=== PATIENT | male | born 1955 | race Caucasian/White ===

== ENCOUNTER 2023-04-30 15:43 | Inpatient (IN) | payer MEDICARE, SELFPAY ==
[2023-04-30] VITALS (11 sets, daily range): BP systolic 89–125; BP diastolic 28–69; PULSE 62–83; RESP 18–22; TEMP 36.3–36.7; O2SAT 90–100; BMI 35.0
--- NOTE | ~2023-04-30 | US_ITS ---
EXAMINATION: US GUIDED PARACENTESIS CLINICAL INFORMATION: Large amount of ascites COMPARISON: None available. TECHNIQUE: The skin was prepped and draped in the usual fashion. 1% Xylocaine was used for local anesthetic. With ultrasound guidance a 5 Sudanese Yueh catheter was placed in the left lower quadrant. 6.6 L of clear yellow fluid was drained. FINDINGS: Large ascites US/US paracentesis abd w/image IMPRESSION: Paracentesis with 6.6 L of fluid drained
--- NOTE | ~2023-04-30 | CT_ITS ---
EXAMINATION: CT ABDOMEN AND PELVIS WITHOUT CONTRAST CLINICAL INFORMATION: Bacteremia, Distended abdomen. Chronic Gordon catheter. COMPARISON: None available. TECHNIQUE: Multidetector volumetric imaging was performed from the superior aspect of the liver through the pubic symphysis. Sagittal and coronal reformatted images were obtained on the technologist's workstation. This CT examination was performed using dose optimization techniques as appropriate, variously including the following: *Automated exposure control *Adjustment of mA and/or kV according to patient size (this includes techniques or standardized protocols for targeted exams where dose is matched to indication/reason for exam; i.e. extremities or head) *Use of iterative reconstruction technique DLP: 663 mGy-cm FINDINGS: LUNG BASES: The visualized lung bases are unremarkable. LIVER, GALLBLADDER, AND BILIARY TREE: Cirrhotic-appearing liver. No focal liver lesion. Multiple small gallstones in the gallbladder. Gallbladder otherwise normal. No biliary duct dilatation. Large amount of ascites. PANCREAS: Unremarkable. SPLEEN: Unremarkable. ADRENAL GLANDS: Unremarkable. KIDNEYS AND URETERS: The kidneys are normal in size, shape, and attenuation. No hydronephrosis, hydroureter, or calculi seen. No perinephric stranding. BLADDER: Gordon catheter in the bladder. A small amount of air in the bladder presumably related to Gordon catheter placement. Bacteremia. Distended abdomen. Chronic Gordon. GASTROINTESTINAL TRACT: Mild constipation. The small and large bowel are otherwise unremarkable. The appendix is unremarkable. ABDOMINAL WALL: No significant hernia is appreciated. LYMPH NODES: Normal. VASCULAR: Atherosclerotic disease aneurysm. PELVIC VISCERA: Enlarged prostate gland OSSEOUS STRUCTURES: Moderate old-appearing L1 vertebral body bilateral rib fractures varying ages. Degenerative changes of the right. CT/CT abdomen pelvis wo IV con IMPRESSION: Cirrhosis. Large amount of ascites. Gallstones. Gordon catheter in the bladder. Small amount of air in the bladder presumably related to Gordon catheter placement. Enlarged prostate gland. Fleischner guidelines were followed.
--- NOTE | ~2023-04-30 | CT_ITS ---
EXAMINATION: CT HEAD WITHOUT CONTRAST CLINICAL INFORMATION: Encephalopathy. COMPARISON: No relevant prior imaging. TECHNIQUE: Contiguous axial imaging was performed from the skull base to vertex without intravenous administration of contrast. This CT examination was performed using dose optimization techniques as appropriate, variously including the following: *Automated exposure control *Adjustment of mA and/or kV according to patient size (this includes techniques or standardized protocols for targeted exams where dose is matched to indication/reason for exam; i.e. extremities or head) *Use of iterative reconstruction technique DLP: 1420 mGy-cm FINDINGS: There is no acute intracranial hemorrhage or abnormal extra-axial collection. No intracranial mass effect or midline shift. Lateral and third ventricles are normal. No hydrocephalus. There are scattered nonspecific foci of hypoattenuation within the periventricular white matter. Morales-white matter differentiation is otherwise preserved and there is no evidence of acute territorial infarct. The calvarium and skull base are intact. Mastoid air cells and middle ear cavities are well aerated. No active paranasal sinus disease. Globes and orbits are grossly symmetric. CT/CT head/brain wo IV con IMPRESSION: There are scattered chronic small vessel ischemic changes within the periventricular white matter. Otherwise unremarkable examination. No evidence of acute territorial infarct or hemorrhage.
--- NOTE | 2023-04-30 16:42 | ED.GENADULT ---
HPI - General Adult General Chief complaint: General Medical Stated complaint: CRITICAL BLOOD INFECTION Time Seen by Provider: 04/30/23 16:40 Source: patient, EMS and RN notes reviewed Mode of arrival: EMS Limitations: no limitations History of Present Illness HPI narrative: Patient is a 67-year-old male with past medical history of liver cirrhosis, ascites, diabetes mellitus, chronic indwelling Gordon catheter, GERD, alcohol use disorder presents emergency department from [facility]. When asked, patient states he is being treated for a urine infection, is unable to provide me much more history than this. He is uncertain whether he even has a Gordon catheter in place. Upon review of patient records from [facility], patient has been experiencing increasing confusion and lethargy recent positive blood cultures and urinalysis; 04/11 anaerobic bottle with Gram-negative bacilli and Gram-positive cocci, on 04/29/2023 leukocytosis of 19.3, BUN/creatinine 31/1.78 which is down trending when compared to 04/25 at 34/2.1, ammonia level of 40 elevated. Related Data Home Medications Medication Instructions Recorded Confirmed acetaminophen 325 mg tablet 650 mg PO QID PRN Pain 04/30/23 04/30/23 folic acid 1 mg tablet 1 mg PO DAILY 04/30/23 04/30/23 gabapentin 100 mg capsule 100 mg PO TID 04/30/23 04/30/23 insulin glargine 100 unit/mL (3 30 unit subcut BEDTIME 04/30/23 04/30/23 mL) subcutaneous pen (Lantus Solostar U-100 Insulin) insulin lispro 100 unit/mL 0 sliding scale dose subcut TIDAC 04/30/23 04/30/23 subcutaneous pen (Humalog KwikPen (U-100) Insulin) lactulose 10 gram/15 mL oral 45 ml PO TID 04/30/23 04/30/23 solution melatonin 3 mg tablet 3 mg PO BEDTIME Sleep 04/30/23 04/30/23 midodrine 10 mg tablet 10 mg PO TID@0600,1200,1800 04/30/23 04/30/23 multivitamin 1 tab PO DAILY 04/30/23 04/30/23 naltrexone 50 mg tablet 50 mg PO DAILY 04/30/23 04/30/23 pantoprazole 40 mg tablet,delayed 40 mg PO DAILY 04/30/23 04/30/23 release rifaximin 550 mg tablet (Xifaxan) 550 mg PO BID 04/30/23 04/30/23 sertraline 50 mg tablet 50 mg PO DAILY 04/30/23 04/30/23 thiamine HCl (vitamin B1) 100 mg 100 mg PO DAILY 04/30/23 04/30/23 tablet Allergies Allergy/AdvReac Type Severity Reaction Status Date / Time lisinopril Allergy Angioedema Verified 04/30/23 17:28 scallops Allergy Angioedema Verified 04/30/23 17:28 Review of Systems Review of Systems: Yes all other systems are reviewed and are negative [facility] Past Medical History Attestation statement: The following information was validated with the patient. Source: old records reviewed Medical History (Updated 05/01/23 @ 00:37 by Latoya Knight CNP) Orthostatic hypotension Chronic liver disease Type 2 diabetes mellitus Social History Social History Smoked in Last 30 Days: No Use of substances other than those prescribed or required for medical reasons: No Advance Directives: No Advance Directives Information Provided: Yes Physical Exam ED Vital Signs: Vital Signs - 24 hr 04/30/23 16:26 04/30/23 17:53 04/30/23 18:22 Temperature 97.8 F 98.1 F 97.6 F Pulse Rate 78 62 64 Respiratory Rate 18 22 H 20 Blood Pressure 113/50 L 109/49 L 89/41 L Pulse Oximetry 98 100 99 Oxygen Delivery Method Room Air Room Air Room Air 04/30/23 18:31 04/30/23 19:07 04/30/23 19:30 Temperature 97.4 F 97.4 F Pulse Rate 65 79 83 Respiratory Rate 20 22 H 20 Blood Pressure 107/38 L 111/28 L 98/48 L Pulse Oximetry 96 90 L 99 Oxygen Delivery Method Room Air Room Air Room Air 04/30/23 20:21 04/30/23 20:53 Temperature 97.9 F Pulse Rate 66 71 Respiratory Rate 20 22 H Blood Pressure 106/46 L 125/45 L Pulse Oximetry 98 97 Oxygen Delivery Method Room Air Room Air BMI result Body Mass Index 35.0 Appearance: Alert.?Oriented to person, place and time. No acute distress.?Normal affect. Eyes: Pupils equal, round and reactive to light.? ENT: Pharynx normal.?? Neck: Normal inspection.? Neck supple.?? CVS: Heart sounds normal. Normal heart rate and rhythm.? Pulses normal.?? Respiratory: No respiratory distress.? Lung sounds clear to auscultation bilaterally?? Abdomen: Ascites, no rigidity or guarding, no peritoneal signs. Normoactive bowel sounds. Genital: Chronic indwelling Gordon catheter Skin: Skin warm and dry.? Normal skin color.? .?? Neuro: Moves all extremities spontaneously. Sensation intact bilaterally. No focal neuro deficits. Course Reevaluation(s) Reevaluation #1: Received call from lab regarding critical lactic acid 2.8, sepsis fluid bolus ordered based on ideal body weight for total of 2052 mL. EKG revealing sinus rhythm with first-degree AV block, right bundle-branch block, no prior available for comparison. CBC reveals a leukocytosis of 13 with left shift, mild normocytic anemia, PENNY BUN 38 creatinine 2.08. Positive urinary tract infection. Time: 18:04 Reevaluation #2: Case presented to hospitalist service, spoke with Dr. Crispin Romero, concern surrounding BP/map and deterioration Patient received scheduled midodrine that he takes outpatient, repeat lactic acid 3.0 after fluid bolus, airline managerial supervisor consulted, given history albumin ordered at 133 mL/hour Time: 21:01 Medications Administered Generic Name Dose Route Start Last Admin Trade Name Freq PRN Reason Stop Dose Admin Sodium Chloride 1,000 mls @ 80 mls/hr 04/30/23 21:00 04/30/23 22:06 Ns IVCONT 80 mls/hr .[id number] MIRIAM Administration Piperacillin Sod/Tazobactam 50 mls @ 100 mls/hr 05/01/23 00:00 05/01/23 00:00 Sod 3.375 gm/ Sodium Chloride IV 100 mls/hr Q6H MIRIAM Administration Insulin Human Lispro 0 unit 05/01/23 00:00 04/30/23 23:51 Insulin Lispro 100 Unit/Ml 3 Ml Vial SUBCUT Not Given Q6H MIRIAM Protocol Sodium Chloride 3 ml 05/01/23 00:00 04/30/23 23:01 0.9 % Sodium Chloride Flush 3 Ml Syringe IVFLUSH 3 ml QSHIFT MIRIAM Administration Discontinued Medications Generic Name Dose Route Start Last Admin Trade Name Freq PRN Reason Stop Dose Admin Piperacillin Sod/Tazobactam 50 mls @ 100 mls/hr 04/30/23 16:50 04/30/23 18:28 Sod 3.375 gm/ Sodium Chloride IV 04/30/23 17:19 Infused ONCE ONE Infusion Sodium Chloride 1,000 mls @ 999 mls/hr 04/30/23 17:00 04/30/23 19:06 Ns IV 04/30/23 18:00 Infused .Q1H1M MIRIAM Infusion Sodium Chloride 2,052 mls @ 2,052 mls/hr 04/30/23 18:02 04/30/23 20:20 Ns IV 04/30/23 19:01 Infused .Q1H STA Infusion Vancomycin HCl 2,000 mg in 500 mls @ 250 mls/hr 04/30/23 20:18 04/30/23 22:02 Vancomycin/Ns IV 04/30/23 22:17 Infused ONCE ONE Infusion Albumin Human 100 mls @ 133.333 mls/hr 04/30/23 20:50 04/30/23 22:58 Kedbumin 25 % IV 04/30/23 22:34 Infused Q1H MIRIAM Infusion Midodrine 10 mg 04/30/23 20:28 04/30/23 20:45 Midodrine Hcl 10 Mg Tablet PO 04/30/23 20:29 10 mg ONCE STA Administration Medical Decision Making Medical Decision Making MDM Narrative: Patient is a 67-year-old male with past medical history of liver cirrhosis, ascites, diabetes mellitus, chronic indwelling Gordon catheter, GERD, alcohol use disorder presenting to emergency department via EMS for evaluation concern for bacteremia due to outpatient blood cultures and positive urinalysis. Results reviewed as per HPI portion of this note, concern for urosepsis bacteremia. Sepsis alert was called. Will obtain CBC to evaluate for leukocytosis/ anemia, CMP and lipase to evaluate for abnormal electrolytes /abnormal renal function/ abnormal hepatic/biliary function, repeat blood cultures, lactic acid and Urinalysis. We will cover empirically with Zosyn and vancomycin for Gram-positive coverage Anticipated admission. See course narrative for further detail Differential Diagnosis Differential Diagnoses: The differential diagnosis associated with the presentation includes (Bacteremia, sepsis, severe sepsis, urinary tract infection) Admission/Observation Consideration of admission/observation: Escalation of care including admission/observation considered (See narrative above in course narrative for further detail) Consult Healthcare Provider Management of the patient was discussed with: Hospitalist Lab Data MDM Lab Attestation statement: I reviewed the patient's lab results. (See course narrative) 04/30/23 17:27 04/30/23 17:27 Labs: Lab Results 04/30/23 04/30/23 04/30/23 Range/Units 17:27 17:28 18:43 WBC 13.0 H (4.8-10.8) X10*3/uL RBC 3.74 L (4.60-5.80) X10*6/uL Hgb 10.8 L (14.0-18.0) g/dl Hct 33.2 L (42.0-52.0) % MCV 88.8 (80.0-98.0) fL MCH 28.9 (27.0-33.0) pg MCHC 32.5 (31.0-36.0) g/dl RDW 16.5 H (11.0-16.0) % Plt Count 263 (160-400) X10*3/uL MPV 9.8 (9.4-12.4) fL Immature Gran % (Auto) 0.5 H (0.0-0.4) % Neut % (Auto) 77.7 H (45-73) % Lymph % (Auto) 14.8 L (20-40) % [place] % (Auto) 5.7 (2-11) % Eos % (Auto) 0.8 (0-4) % Baso % (Auto) 0.5 (0-2) % Lymph # (Auto) 1.9 (1.2-4.9) X10*3/uL [place] # (Auto) 0.7 (0.1-1.2) X10*3/uL Eos # (Auto) 0.1 (0.0-0.4) X10*3/uL Baso # (Auto) 0.1 (0.0-0.2) X10*3/uL Abs Immat Gran (auto) 0.07 H (0.00-0.03) X10*3/uL Absolute Neuts (auto) 10.1 H (2.0-8.3) x10*3/uL Absolute Nucleated RBC 0.000 (0.0-0.012) X10*3/uL Nucleated RBC % (auto) 0.0 (0.0-0.2) /100WBC Sodium 141 (135-145) mmol/L Potassium 4.6 (3.3-5.1) mmol/L Chloride 109 H (96-108) mmol/L Carbon Dioxide 20 L (22-29) mmol/L Anion Gap 17 (12-20) BUN 38 H (9-16) mg/dL Creatinine 2.08 H (0.5-1.4) mg/dL Estim Creat Clear Calc 39.2 Estimated GFR 32 Random Glucose 120 H (60-115) mg/dL Lactic Acid 2.8 H* (0.5-2.0) mmol/L Lactic Acid F/U @ 2Hr (0.5-2.0) mmol/L Calcium 8.9 (8.4-10.2) mg/dL Magnesium 2.0 (1.6-2.6) mg/dL Total Bilirubin 1.1 H (0.0-1.0) mg/dL AST 19 (5-37) U/L ALT 11 (0-40) U/L Alkaline Phosphatase 118 H (39-117) U/L Ammonia 19 (13-55) umol/L Total Protein 6.5 (6.5-8.0) g/dL Albumin 2.4 L (3.5-5.0) g/dL Lipase 7 L (8-78) U/L Urine Color Dark Yellow Urine Appearance Turbid Urine pH 7.0 (5.0-9.0) Ur Specific [place] 1.025 (1.005-1.025) Urine Protein 100 (2+) H (Neg-Trace) mg/dL Urine Glucose (UA) Negative (Negative) mg/dL Urine Ketones Trace (Negative) mg/dL Urine Blood Large (3+) H (Negative) Urine Nitrite Positive H (Negative) Ur Leukocyte Esterase Moderate (2+) H (Negative) Urine RBC >20 H (0-2) /HPF Urine WBC >50 H (0-5) /HPF Ur Squamous Epith Cells 0-2 (0-2) /HPF Urine Bacteria 4+ (None Seen) Hyaline Casts 3-5 (0-2) /LPF COVID-19 (LISSETH) Negative (Negative) COVID-19 Clin Com See Note Influenza Type A (BENNY) Negative (Negative) Influenza Type B (BENNY) Negative (Negative) Influenza A & B Note See Note 02/20/24 Range/Units 20:34 WBC (4.8-10.8) X10*3/uL RBC (4.60-5.80) X10*6/uL Hgb (14.0-18.0) g/dl Hct (42.0-52.0) % MCV (80.0-98.0) fL MCH (27.0-33.0) pg MCHC (31.0-36.0) g/dl RDW (11.0-16.0) % Plt Count (160-400) X10*3/uL MPV (9.4-12.4) fL Immature Gran % (Auto) (0.0-0.4) % Neut % (Auto) (45-73) % Lymph % (Auto) (20-40) % [place] % (Auto) (2-11) % Eos % (Auto) (0-4) % Baso % (Auto) (0-2) % Lymph # (Auto) (1.2-4.9) X10*3/uL [place] # (Auto) (0.1-1.2) X10*3/uL Eos # (Auto) (0.0-0.4) X10*3/uL Baso # (Auto) (0.0-0.2) X10*3/uL Abs Immat Gran (auto) (0.00-0.03) X10*3/uL Absolute Neuts (auto) (2.0-8.3) x10*3/uL Absolute Nucleated RBC (0.0-0.012) X10*3/uL Nucleated RBC % (auto) (0.0-0.2) /100WBC Sodium (135-145) mmol/L Potassium (3.3-5.1) mmol/L Chloride (96-108) mmol/L Carbon Dioxide (22-29) mmol/L Anion Gap (12-20) BUN (9-16) mg/dL Creatinine (0.5-1.4) mg/dL Estim Creat Clear Calc Estimated GFR Random Glucose (60-115) mg/dL Lactic Acid (0.5-2.0) mmol/L Lactic Acid F/U @ 2Hr 3.0 H* (0.5-2.0) mmol/L Calcium (8.4-10.2) mg/dL Magnesium (1.6-2.6) mg/dL Total Bilirubin (0.0-1.0) mg/dL AST (5-37) U/L ALT (0-40) U/L Alkaline Phosphatase (39-117) U/L Ammonia (13-55) umol/L Total Protein (6.5-8.0) g/dL Albumin (3.5-5.0) g/dL Lipase (8-78) U/L Urine Color Urine Appearance Urine pH (5.0-9.0) Ur Specific [place] (1.005-1.025) Urine Protein (Neg-Trace) mg/dL Urine Glucose (UA) (Negative) mg/dL Urine Ketones (Negative) mg/dL Urine Blood (Negative) Urine Nitrite (Negative) Ur Leukocyte Esterase (Negative) Urine RBC (0-2) /HPF Urine WBC (0-5) /HPF Ur Squamous Epith Cells (0-2) /HPF Urine Bacteria (None Seen) Hyaline Casts (0-2) /LPF COVID-19 (LISSETH) (Negative) COVID-19 Clin Com Influenza Type A (BENNY) (Negative) Influenza Type B (BENNY) (Negative) Influenza A & B Note Independent Interpretation I performed an independent interpretation of an: EKG Interpretation: EKG revealing sinus rhythm with first-degree AV block; IN interval 258 MS, right bundle-branch block, prolonged QTC oriented 476 ms Independent Historian Clinical information obtained from an independent historian. History obtained from or confirmed by: EMS External Record Review External record reviewed: Outpatient record (Facility notes) Chronic Conditions Patient?s care impacted by: Diabetes Critical Care Time Critical Care Time Critical Care Time: Yes Total Critical Care Time: 55 Attestation: I personally attest to this critical care time spent taking care of the patient exclusive of all other billable procedures was approximately 55 minutes including initial evaluation of patient, ordering tests, EKG interpretation, medical consultation, documentation, re-evaluation. Discharge Plan Discharge Clinical Impression: Urinary tract infection, Bacteremia, Acute kidney injury, Encephalopathy Patient Disposition: Admitted As Inpatient
--- NOTE | 2023-04-30 17:00 | ECG_ITS ---
Test Reason : SIPIS Blood Pressure : / mmHG Vent. Rate : 063 BPM Atrial Rate : 063 BPM P-R Int : 258 ms QRS Dur : 136 ms QT Int : 466 ms P-R-T Axes : 076 -81 086 degrees QTc Int : 476 ms Sinus rhythm with 1st degree A-V block Left axis deviation Right bundle branch block Inferior infarct , age undetermined Anterolateral infarct , age undetermined Abnormal ECG No previous ECGs available Referred By: Latoya Knight Electronically Signed By:ANYI DURAN MD
--- NOTE | 2023-04-30 17:26 | PHA.MEDREC ---
Pharmacy Consult ? Medication Reconciliation Pharmacy has completed the medication reconciliation. Confirmed medications from list brought from facilty ([facility])
[2023-04-30] MEDS: 0.9 % Sodium Chloride 1,000 ML 999 ML IV (17:29)
[2023-04-30] MEDS: Piperacillin Sodium/Tazobactam 3.375 GM in 0.9 % Sodium Chloride 50 ML IV (17:33)
[2023-04-30 17:36] LABS: MANUAL DIFF FLAG NO
[2023-04-30 17:46] LABS: Basophils Absolute Auto 0.1 X10*3/uL (0.0-0.2); Basophils Percent Auto 0.5 % (0-2); Eosinophils Absolute Auto 0.1 X10*3/uL (0.0-0.4); Eosinophils Percent Auto 0.8 % (0-4); Hematocrit 33.2 % (42.0-52.0); Hemoglobin 10.8 g/dl (14.0-18.0); Imm Gran Abs Auto 0.07 X10*3/uL (0.00-0.03); Imm Gran Pct Auto 0.5 % (0.0-0.4); Lymphocytes Absolute Auto 1.9 X10*3/uL (1.2-4.9); Lymphocytes Percent Auto 14.8 % (20-40); Mean Corpuscular HGB Conc 32.5 g/dl (31.0-36.0); Mean Corpuscular Hemoglobin 28.9 pg (27.0-33.0); Mean Corpuscular Volume 88.8 fL (80.0-98.0); Mean Platelet Volume 9.8 fL (9.4-12.4); Monocytes Absolute Auto 0.7 X10*3/uL (0.1-1.2); Monocytes Percent Auto 5.7 % (2-11); Neutrophils Absolute Auto 10.1 x10*3/uL (2.0-8.3); Neutrophils Percent Auto 77.7 % (45-73); Platelet Count 263 X10*3/uL (160-400); Red Blood Count 3.74 X10*6/uL (4.60-5.80); Red Cell Distribution Width 16.5 % (11.0-16.0)
[2023-04-30 17:53] LABS: Ammonia 19 umol/L (13-55)
[2023-04-30 17:54] LABS: COVID-19 Test Negative (Negative); IDNOW Serial# 08D9AD1C; IDNOW Serial# 152EDE1D; Influenza A Negative (Negative); Influenza B2 Negative (Negative)
[2023-04-30 18:02] LABS: Alanine Aminotransferase 11 U/L (0-40); Albumin Level 2.4 g/dL (3.5-5.0); Alkaline Phosphatase 118 U/L (39-117); Anion Gap 17 (12-20); Aspartate Amino Transferase 19 U/L (5-37); Bilirubin Total 1.1 mg/dL (0.0-1.0); Blood Urea Nitrogen 38 mg/dL (9-16); Calcium 8.9 mg/dL (8.4-10.2); Carbon Dioxide 20 mmol/L (22-29); Chloride 109 mmol/L (96-108); Creatinine Clr Calc Pharmacy 39.2; Estimated Glomerular Filt Rate 32; Glucose Random 120 mg/dL (60-115); Lipase 7 U/L (8-78); Potassium 4.6 mmol/L (3.3-5.1); Sodium 141 mmol/L (135-145); Total Protein 6.5 g/dL (6.5-8.0)
[2023-04-30 18:03] LABS: Lactic Acid 2.8 mmol/L (0.5-2.0)
[2023-04-30] MEDS: 0.9 % Sodium Chloride 2,052 ML 2052 ML IV (18:28)
--- NOTE | 2023-04-30 18:38 | MHC.EDTECH ---
Patient was bladder scan result was 188 ml ,RN and Provider aware .
[2023-04-30 18:49] LABS: Appearance Urine Turbid; Color Urine Dark Yellow; Glucose Urine UA Negative (Negative); Leukocyte Esterase Urine Moderate (2+) (Negative); Nitrite Urine Positive (Negative); Specific Gravity - Urine 1.025 (1.005-1.025); UMIC TRIGGER UACC YES; Urine Blood Large (3+) (Negative); Urine Ketones Trace mg/dL (Negative); Urine Protein 100 (2+) mg/dL (Neg-Trace)
[2023-04-30 18:54] LABS: Bacteria Urine 4+ (None Seen); RBC Urine >20 /HPF (0-2); Squamous Epithelial Cell Urine 0-2 /HPF (0-2); UACC Culture Trigger YES; WBC Urine >50 /HPF (0-5)
--- NOTE | 2023-04-30 19:27 | PC.NURSE ---
delay in antibiotic administration due to difficulty obtaining blood cultures
[2023-04-30 19:34] LABS: Reflex Lactate? Lactic Acid Added
--- NOTE | 2023-04-30 20:00 | PC.NURSE ---
This senior copywriter assumed care of this Pt at 1900. Sepsis fluids running per MAR at this time. Pt has 16F garcia cath in place. Pt came in with it from facility. Pt reports pain when urine comes out . Denies ABD pain.
[2023-04-30] MEDS: Midodrine HCl 10 MG TABLET PO (20:45)
[2023-04-30] MEDS: vancomycin/NS 2,000 MG/500 ML PLAST..BAG 250 MG IV (20:47)
--- NOTE | 2023-04-30 21:07 | P.HPHOSP_ITS ---
History of Present Illness Date of Service: 04/30/23 Attending physician on admission: Abida Romeor Chief Complaint: Confusion Andres Frye is a 67 years old man with past medical history significant for alcoholic liver cirrhosis/chronic liver disease, chronic indwelling urinary catheter, GERD, orthostatic hypotension on midodrine and type 2 diabetes mellitus on insulin was brought to the emergency department from his nursing facility due to worsening confusion over the last week. Workup was ordered and blood cultures came back positive for Gram-negative bacilli and Gram-positive cocci. Patient seems to be confused however he was able to answer some simple questions. He denied pain, shortness on breath or nausea. Patient's was at bedside and mentioned that his confusion has been on and off over the last week. He takes lactulose for hepatic encephalopathy. In the ED, he was found to have soft BPs (which are slightly lower than his baseline BP, according to information obtained from [facility]). There is no tachycardia or fever. Blood workup is remarkable for leukocytosis, 13.0 (it was 19.3 yesterday). There is anemia, 10.8. Platelets are normal. There are no significant electrolyte imbalances. CO2 slightly low (20) with normal anion gap. Lactic acid is 2.8 (it was repeated after IV fluids and now is 3.0). Creatinine is 2.08 (yesterday was 1.78 -nursing facility paperwork; baseline around 1.0 according to [facility]). Ammonia 4.0 (yesterday). CXR done yesterday is negative. Transaminases are normal. Alk-phos and bilirubin slightly elevated. Albumin 2.4 and normal lipase. Urinalysis consistent with urinary tract infection. ED tx: Zosyn 3.37 g, NS 3 L. Review of Systems 2 Review of Systems: Yes Unobtainable due to mental status [facility] Medical History (Updated 04/30/23 @ 22:55 by Abida Romero MD) Orthostatic hypotension Chronic liver disease Type 2 diabetes mellitus Social History Smoked in Last 30 Days: No Use of substances other than those prescribed or required for medical reasons: No Advance Directives: No Advance Directives Information Provided: Yes Meds Allergies Allergy/AdvReac Type Severity Reaction Status Date / Time lisinopril Allergy Angioedema Verified 04/30/23 17:28 scallops Allergy Angioedema Verified 04/30/23 17:28 Active Medications: Current Medications Folic Acid (Folic Acid 1 Mg Tablet) 1 mg PO DAILY [facility] Heparin Sodium (Porcine) (Heparin Sodium,Porcine 5,000 Unit/Ml Vial) 5,000 unit SUBCUT Q8H [facility] Vancomycin HCl (Vancomycin/Ns) 2,000 mg in 500 mls @ 250 mls/hr IV ONCE ONE Stop: 04/30/23 22:17 Last Admin: 04/30/23 20:47 Dose: 250 mls/hr Albumin Human (Kedbumin 25 %) 100 mls @ 133.333 mls/hr IV Q1H MIRIAM Stop: 04/30/23 22:34 Sodium Chloride (Ns) 1,000 mls @ 80 mls/hr IVCONT .[id number] [facility] Piperacillin Sod/Tazobactam (Sod 2.25 gm/ Sodium Chloride) 50 mls @ 100 mls/hr IV Q6H [facility] Lactulose (Lactulose 20 Gm/30 Ml Solution) 30 gm PO TID [facility] Midodrine (Midodrine Hcl 10 Mg Tablet) 10 mg PO TID@0600,1200,1800 [facility] Multivitamins/Vitamin C (Multivitamin Tablet) 1 tab PO DAILY [facility] Naltrexone HCl (Naltrexone Hcl 50 Mg Tablet) 50 mg PO DAILY [facility] Pantoprazole Sodium (Pantoprazole Sodium 40 Mg/10 Ml Vial) 40 mg IVPUSH DAILY [facility] Pharmacy Consult (Consult Rx Vancomycin Dosing) 1 each MISCELLANE DAILY PRN PRN Reason: Consult order Rifaximin (Rifaximin 550 Mg Tablet) 550 mg PO BID [facility] Sertraline HCl (Sertraline Hcl 50 Mg Tablet) 50 mg PO DAILY [facility] Sodium Chloride (0.9 % Sodium Chloride Flush 3 Ml Syringe) 3 ml IVFLUSH QSHIFT [facility] Thiamine HCl (Thiamine Hcl 100 Mg Tablet) 100 mg PO DAILY [facility] Home Medications Medication Instructions Recorded Confirmed Last Taken Type acetaminophen 325 mg tablet 650 mg PO QID PRN Pain 04/30/23 04/30/23 Unknown History folic acid 1 mg tablet 1 mg PO DAILY 04/30/23 04/30/23 Unknown History gabapentin 100 mg capsule 100 mg PO TID 04/30/23 04/30/23 Unknown History insulin glargine 100 unit/mL (3 30 unit subcut BEDTIME 04/30/23 04/30/23 Unknown History mL) subcutaneous pen (Lantus Solostar U-100 Insulin) insulin lispro 100 unit/mL 0 sliding scale dose subcut TIDAC 04/30/23 04/30/23 Unknown History subcutaneous pen (Humalog KwikPen (U-100) Insulin) lactulose 10 gram/15 mL oral 45 ml PO TID 04/30/23 04/30/23 Unknown History solution melatonin 3 mg tablet 3 mg PO BEDTIME Sleep 04/30/23 04/30/23 Unknown History midodrine 10 mg tablet 10 mg PO TID@0600,1200,1800 04/30/23 04/30/23 Unknown History multivitamin 1 tab PO DAILY 04/30/23 04/30/23 Unknown History naltrexone 50 mg tablet 50 mg PO DAILY 04/30/23 04/30/23 Unknown History pantoprazole 40 mg tablet,delayed 40 mg PO DAILY 04/30/23 04/30/23 Unknown History release rifaximin 550 mg tablet (Xifaxan) 550 mg PO BID 04/30/23 04/30/23 Unknown History sertraline 50 mg tablet 50 mg PO DAILY 04/30/23 04/30/23 Unknown History thiamine HCl (vitamin B1) 100 mg 100 mg PO DAILY 04/30/23 04/30/23 Unknown History tablet Physical Exam 2 Vital Signs and Narrative: Vital Signs: Last Vital Signs Temp 97.9 F 04/30/23 20:21 Pulse 71 04/30/23 20:53 Resp 22 H 04/30/23 20:53 BP 125/45 L 04/30/23 20:53 Pulse Ox 97 04/30/23 20:53 O2 Del Method Room Air 04/30/23 20:53 BMI result Body Mass Index 35.0 Constitutional - Awake and Alert. Confused. No lethargy. Afebrile. Cooperative. HEENT - Pupils equally round. No icteric sclera. Heart - S1S2, RRR. Lungs - Normal lung expansion, Normal respiratory effort, No respiratory distress, CTA bilaterally Abdomen - Distended. Non tenderness. (+) fluid wave Extremities - no calf tenderness bilaterally, no swelling Musculoskeletal - Normal inspection, normal ROM Skin - Warm/Dry. No jaundice. Neurological - Alert & oriented X2. No focal weakness grossly noted. No dysarthria. Answer questions appropriately Psychological - confused Results Labs 04/30/23 17:27 04/30/23 17:27 Labs: Laboratory Results - last 24 hr 04/30/23 04/30/23 04/30/23 17:27 17:28 18:43 MCV 88.8 MCH 28.9 MCHC 32.5 RDW 16.5 H Plt Count 263 MPV 9.8 Immature Gran % (Auto) 0.5 H Neut % (Auto) 77.7 H Lymph % (Auto) 14.8 L [place] % (Auto) 5.7 Eos % (Auto) 0.8 Baso % (Auto) 0.5 Lymph # (Auto) 1.9 [place] # (Auto) 0.7 Eos # (Auto) 0.1 Baso # (Auto) 0.1 Abs Immat Gran (auto) 0.07 H Absolute Neuts (auto) 10.1 H Absolute Nucleated RBC 0.000 Nucleated RBC % (auto) 0.0 Anion Gap 17 Estim Creat Clear Calc 39.2 Estimated GFR 32 Random Glucose 120 H Lactic Acid 2.8 H* Lactic Acid F/U @ 2Hr Calcium 8.9 Magnesium 2.0 Total Bilirubin 1.1 H AST 19 ALT 11 Alkaline Phosphatase 118 H Ammonia 19 Total Protein 6.5 Albumin 2.4 L Lipase 7 L Urine Color Dark Yellow Urine Appearance Turbid Urine pH 7.0 Ur Specific [place] 1.025 Urine Protein 100 (2+) H Urine Glucose (UA) Negative Urine Ketones Trace Urine Blood Large (3+) H Urine Nitrite Positive H Ur Leukocyte Esterase Moderate (2+) H Urine RBC >20 H Urine WBC >50 H Ur Squamous Epith Cells 0-2 Urine Bacteria 4+ Hyaline Casts 3-5 COVID-19 (LISSETH) Negative COVID-19 Clin Com See Note Influenza Type A (BENNY) Negative Influenza Type B (BENNY) Negative Influenza A & B Note See Note 04/30/23 20:34 MCV MCH MCHC RDW Plt Count MPV Immature Gran % (Auto) Neut % (Auto) Lymph % (Auto) [place] % (Auto) Eos % (Auto) Baso % (Auto) Lymph # (Auto) [place] # (Auto) Eos # (Auto) Baso # (Auto) Abs Immat Gran (auto) Absolute Neuts (auto) Absolute Nucleated RBC Nucleated RBC % (auto) Anion Gap Estim Creat Clear Calc Estimated GFR Random Glucose Lactic Acid Lactic Acid F/U @ 2Hr 3.0 H* Calcium Magnesium Total Bilirubin AST ALT Alkaline Phosphatase Ammonia Total Protein Albumin Lipase Urine Color Urine Appearance Urine pH Ur Specific [place] Urine Protein Urine Glucose (UA) Urine Ketones Urine Blood Urine Nitrite Ur Leukocyte Esterase Urine RBC Urine WBC Ur Squamous Epith Cells Urine Bacteria Hyaline Casts COVID-19 ([facility]ISSETH) COVID-19 Clin Com Influenza Type A (BENNY) Influenza Type B (BENNY) Influenza A & B Note Assessment and Plan (1) Bacteremia: Status: Acute (2) Catheter-associated urinary tract infection: Qualifiers: Indwelling urinary catheter type: indwelling urethral catheter E ncounter type: initial encounter Qualified Code(s): T83.511A - Infection and inflammatory reaction due to indwelling urethral catheter, initial encounter; N39.0 - Urinary tract infection, site not specified Status: Acute (3) Acute encephalopathy: Status: Acute (4) PENNY (acute kidney injury): Status: Acute (5) GERD (gastroesophageal reflux disease): Qualifiers: Esophagitis presence: without esophagitis Qualified Code(s): K21.9 - Gastro-esophageal reflux disease without esophagitis Status: Acute (6) Type 2 diabetes mellitus: Qualifiers: Diabetes mellitus prison insulin use: with certified medical technician assistant use Diabetes mellitus complication status: with kidney complications Diabetes mellitus complication detail: with other kidney complication Qualified Code(s): E11.29 - Type 2 diabetes mellitus with other diabetic kidney complication; Z79.4 - wildlife enforcement major (current) use of insulin Status: Acute (7) Orthostatic hypotension: Status: Acute Plan Andres Torres is a 67 years old man admitted with: * Bacteremia secondary to Gram-negative bacilli/catheter-associated UTI + Gram- positive cocci: Two SIRS criteria: Leukocytosis and suspected infection + severe sepsis criteria: Elevated creatinine (2.08), elevated lactic acid and MAP <65 (however, it seems patient's current blood pressure are slightly below his baseline -hx of orthostatic hypotension on midodrine). Received NS bolus in ED (30 ml/kg) and start maintenance. Blood and a urine cultures were obtained in ED (and at nursing facility) -will follow results. First dose of Zosyn given -we will continue. Will add treatment with vancomycin. Continue to monitor lactic acid. Exchange indwelling urinary catheter. * Encephalopathy likely multifactorial: Mild hepatic encephalopathy, acute illness, medication. NPO except meds. Aspiration precautions Continue lactulose. Hold melatonin and gabapentin. Continue IV antibiotics. * Acute kidney injury likely multifactorial: Sepsis/bacteremia, ? hepatorenal syndrome. Continue IV fluids. Continue to monitor renal function. Avoid nephrotoxic agents. Nephrology consult. * GERD. PPI IV. * Orthostatic hypotension. Continue midodrine 10 mg p.o. t.i.d. * Type 2 diabetes mellitus. Blood glucose monitoring every 6 hours while NPO. Blood glucose control with insulin sliding scale for now. DVT prophylaxis: Heparin subcut GI prophylaxis: Protonix Code status: Full (d/w , pt has a MOLST form indicating: OK to attempt resuscitation, intubated and ventilated, transferred to hospital). Patient will need hospitalization for at least 2 midnights for bacteremia secondary to catheter associated UTI treatment with IV antibiotics and IV fluids. Quality Stroke Does the patient have a stroke diagnosis?: No VTE Prior VTE?: No VTE Risk Level:: Medical - moderate - high VTE Device Contraindication: N/A - Device Ordered VTE Drug Contraindication: N/A - Med Ordered
--- NOTE | 2023-04-30 21:13 | PHA.PROG ---
Admission Date/Time: Indication: Bacteremia Weight in k.326 kg Adjusted body weight in K kg [place] body weight in K.4 kg Obesity Dosing Indication % IBW: 152% Serum Creatinine - Last 168 Hours 04/30/23 17:27 Creatinine 2.08 H Estimated CrCl and GFR - Last 168 Hours 04/30/23 17:27 Estim Creat Clear Calc 39.2 Estimated GFR 32 Vancomycin Loading Dose: 2000 mg (19 mg/kg) Current Vancomycin Dosing Regimen: 1250 mg Q24H Date and Time for next Vancomycin Level to be drawn: 05/02 @ 1900 Pharmacist Comments on Vancomycin Plan: Patient received an adequate load dose in the ER 04/30 @ 2046 Maintenance dose vancomycin 1250 mg Q24H is scheduled to start 05/01 @ 2099. Predicted AUC 553 with a trough of 18.2 Patient is consider obese with with %IBW > 130% therefore careful monitor is required due to vancomycin high volume of distribution. Level will be drawn prior to 3rd dose to access for safety due to patient risk factor for nephrotoxicity - weight and decrease renal function Pharmacy will monitor renal fucntion daily. Miley Mcgee PharmD Vancomycin dosing will take advantage of [employer] as a clinical decision support tool that uses Bayesian modeling to calculate individual patient's pharmacokinetic parameters and forecast the patient's drug concentration time course with the target goal AUC 24 range of 400 - 600 mg/L/hr.
--- NOTE | 2023-04-30 21:16 | PC.NURSE ---
Pt reports pain with urination, F/C in place with only 100 mL. Pt bladder scanned 235 mL. Provider Arturo Knight made aware.
--- NOTE | 2023-04-30 21:21 | PC.NURSE ---
Pt difficult stick, 2nd IV placed, ultrasound guided.
[2023-04-30] MEDS: Albumin Human 25 % 100 ML 133.33 ML IV (21:25)
[2023-04-30] MEDS: 0.9 % Sodium Chloride 1,000 ML 80 ML IVCONT (22:06)
[2023-04-30] MEDS: Albumin Human 25 % 100 ML 133.3 ML IV (22:11)
[2023-04-30 22:39] LABS: Reflex Lactate? 2 Y
--- NOTE | 2023-04-30 22:56 | PM.IMHP ---
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 Orthostatic hypotension Chronic liver disease Type 2 diabetes mellitus Social History Household Members: None Housing: Assisted Living Facility Do you presently have visiting nurse or other home services: Yes Unable to assess alcohol history related to: Unknown Alcohol intake: former Patient Tobacco Use Status: Former Tobacco user Smoked in Last 30 Days: No Use of substances other than those prescribed or required for medical reasons: No Substance Use Type: Marijuana Currently Displaying Signs/Symptoms of Drug Intoxication Withdrawal: No Have you been hit, kicked, punched, or otherwise hurt by someone within the past year? If so, by whom?: No Do you feel safe in your current relationship?: No Current Relationship Is there a partner from a previous relationship who is making you feel unsafe now?: No Are you made to feel afraid or neglected: No Advance Directives: Yes Advance Directives on File: Yes Advance Directives Date on File: 05/31/23 Do you have a plan to hurt others: No Plan Nutrition Risks: Dental problems Poor oral hygiene: Yes service: No Meds Allergies Allergy/AdvReac Type Severity Reaction Status Date / Time lisinopril Allergy Angioedema Verified 07/20/23 14:45 scallops Allergy Angioedema Verified 07/20/23 14:45 Active Medications: Current Medications Dextrose (Dextrose 50 % 25 Gm/50 Ml Syringe) 25 gm IVPUSH Q15M PRN; Protocol PRN Reason: per Hypoglycemia Standing Ord. Folic Acid (Folic Acid 1 Mg Tablet) 1 mg PO DAILY MIRIAM Glucose (Glucose Gel 15 Gm Gel..Gram.) 15 gm PO Q15M PRN; Protocol PRN Reason: per Hypoglycemia Standing Ord. Heparin Sodium (Porcine) (Heparin Sodium,Porcine 5,000 Unit/Ml Vial) 5,000 unit SUBCUT Q8H MIRIAM Sodium Chloride (Ns) 1,000 mls @ 80 mls/hr IVCONT .[id number] [facility] Last Admin: 04/30/23 22:06 Dose: 80 mls/hr Piperacillin Sod/Tazobactam (Sod 3.375 gm/ Sodium Chloride) 50 mls @ 100 mls/hr IV Q6H [facility] Vancomycin HCl 1,250 mg/ (Sodium Chloride) 250 mls @ 166.667 mls/hr IV Q24H [facility] Insulin Human Lispro (Insulin Lispro 100 Unit/Ml 3 Ml Vial) 0 unit SUBCUT Q6H [facility]; Protocol Lactulose (Lactulose 20 Gm/30 Ml Solution) 30 gm PO TID [facility] Midodrine (Midodrine Hcl 10 Mg Tablet) 10 mg PO TID@0600,1200,1800 [facility] Multivitamins/Vitamin C (Multivitamin Tablet) 1 tab PO DAILY [facility] Naltrexone HCl (Naltrexone Hcl 50 Mg Tablet) 50 mg PO DAILY [facility] Pantoprazole Sodium (Pantoprazole Sodium 40 Mg/10 Ml Vial) 40 mg IVPUSH DAILY@0630 [facility] Pharmacy Consult (Consult Rx Vancomycin Dosing) 1 each MISCELLANE DAILY PRN PRN Reason: Consult order Rifaximin (Rifaximin 550 Mg Tablet) 550 mg PO BID [facility] Sertraline HCl (Sertraline Hcl 50 Mg Tablet) 50 mg PO DAILY [facility] Sodium Chloride (0.9 % Sodium Chloride Flush 3 Ml Syringe) 3 ml IVFLUSH QSHIFT [facility] Thiamine HCl (Thiamine Hcl 100 Mg Tablet) 100 mg PO DAILY [facility] Home Medications ?Medication ?Instructions ?Recorded ?Confirmed ?Last Taken ?Type acetaminophen 325 mg tablet 650 mg PO DAILY PRN Fever Or Pain 04/30/23 07/20/23 Unknown History folic acid 1 mg tablet 1 mg PO DAILY@0904/30/23 07/20/23 Unknown History melatonin 3 mg tablet 3 mg PO BEDTIME Sleep 04/30/23 07/20/23 Unknown History midodrine 10 mg tablet 10 mg PO TID 04/30/23 07/20/23 Unknown History multivitamin 1 tab PO DAILY@0900 04/30/23 07/20/23 Unknown History naltrexone 50 mg tablet 50 mg PO DAILY@0900 04/30/23 07/20/23 Unknown History pantoprazole 40 mg tablet,delayed 40 mg PO DAILY@0600 04/30/23 07/20/23 Unknown History release rifaximin 550 mg tablet (Xifaxan) 550 mg PO BID 04/30/23 07/20/23 Unknown History thiamine HCl (vitamin B1) 100 mg 100 mg PO DAILY@0900 04/30/23 07/20/23 Unknown History tablet bisacodyl 10 mg rectal suppository 10 mg AL DAILY PRN Constipation 05/20/23 07/20/23 Unknown History ondansetron HCl 4 mg tablet 4 mg PO Q4H PRN nausea/vomting 05/20/23 07/20/23 Unknown History nystatin 100,000 unit/gram topical 1 appl topical DAILY 06/16/23 07/20/23 Unknown History powder sodium phosphates 19 gram-7 118 ml AL DAILY PRN Constipation 06/16/23 07/20/23 Unknown History gram/118 mL enema (Fleet Enema) gabapentin 100 mg capsule 200 mg PO DAILY@0900 07/20/23 07/20/23 Unknown History sertraline 100 mg tablet 100 mg PO DAILY@0900 07/20/23 07/20/23 Unknown History sodium bicarbonate 650 mg tablet 650 mg PO TID@0900,1400,1800 07/20/23 07/20/23 Unknown History Physical Exam Vital Signs and Narrative: Vital Signs: Last Vital Signs Temp 98.1 F 04/30/23 21:36 Pulse 67 04/30/23 22:20 Resp 22 H 04/30/23 22:20 BP 114/69 04/30/23 22:20 Pulse Ox 99 04/30/23 22:20 O2 Del Method Room Air 04/30/23 22:20 BMI result Body Mass Index 35.0 Results Labs 05/11/23 10:24 05/13/23 08:28 Labs: Laboratory Results - last 24 hr 04/30/23 04/30/23 04/30/23 17:27 17:28 18:43 MCV 88.8 MCH 28.9 MCHC 32.5 RDW 16.5 H Plt Count 263 MPV 9.8 Immature Gran % (Auto) 0.5 H Neut % (Auto) 77.7 H Lymph % (Auto) 14.8 L [place] % (Auto) 5.7 Eos % (Auto) 0.8 Baso % (Auto) 0.5 Lymph # (Auto) 1.9 [place] # (Auto) 0.7 Eos # (Auto) 0.1 Baso # (Auto) 0.1 Abs Immat Gran (auto) 0.07 H Absolute Neuts (auto) 10.1 H Absolute Nucleated RBC 0.000 Nucleated RBC % (auto) 0.0 Anion Gap 17 Estim Creat Clear Calc 39.2 Estimated GFR 32 Random Glucose 120 H Lactic Acid 2.8 H* Lactic Acid F/U @ 2Hr Calcium 8.9 Magnesium 2.0 Total Bilirubin 1.1 H AST 19 ALT 11 Alkaline Phosphatase 118 H Ammonia 19 Total Protein 6.5 Albumin 2.4 L Lipase 7 L Urine Color Dark Yellow Urine Appearance Turbid Urine pH 7.0 Ur Specific [place] 1.025 Urine Protein 100 (2+) H Urine Glucose (UA) Negative Urine Ketones Trace Urine Blood Large (3+) H Urine Nitrite Positive H Ur Leukocyte Esterase Moderate (2+) H Urine RBC >20 H Urine WBC >50 H Ur Squamous Epith Cells 0-2 Urine Bacteria 4+ Hyaline Casts 3-5 COVID-19 ([facility]) Negative COVID-19 Clin Com See Note Influenza Type A (BENNY) Negative Influenza Type B (BENNY) Negative Influenza A & B Note See Note 04/30/23 20:34 MCV MCH MCHC RDW Plt Count MPV Immature Gran % (Auto) Neut % (Auto) Lymph % (Auto) [place] % (Auto) Eos % (Auto) Baso % (Auto) Lymph # (Auto) [place] # (Auto) Eos # (Auto) Baso # (Auto) Abs Immat Gran (auto) Absolute Neuts (auto) Absolute Nucleated RBC Nucleated RBC % (auto) Anion Gap Estim Creat Clear Calc Estimated GFR Random Glucose Lactic Acid Lactic Acid F/U @ 2Hr 3.0 H* Calcium Magnesium Total Bilirubin AST ALT Alkaline Phosphatase Ammonia Total Protein Albumin Lipase Urine Color Urine Appearance Urine pH Ur Specific [place] Urine Protein Urine Glucose (UA) Urine Ketones Urine Blood Urine Nitrite Ur Leukocyte Esterase Urine RBC Urine WBC Ur Squamous Epith Cells Urine Bacteria Hyaline Casts COVID-19 ([facility]) COVID-19 Clin Com Influenza Type A (BENNY) Influenza Type B (BENNY) Influenza A & B Note Quality Stroke Does the patient have a stroke diagnosis?: No VTE Prior VTE?: No VTE Risk Level:: Medical - moderate - high VTE Device Contraindication: N/A - Device Ordered VTE Drug Contraindication: N/A - Med Ordered
[2023-04-30] MEDS: 0.9 % Sodium Chloride Flush 3 ML SYRINGE IVFLUSH (23:01)
[2023-04-30 23:59] LABS: Glucose, Whole Blood 97 mg/dL (60-115)
[2023-05-01] VITALS (10 sets, daily range): BP systolic 92–102; BP diastolic 44–60; PULSE 58–88; RESP 15–20; TEMP 36.1–36.9; O2SAT 87–100; BMI 27.9
[2023-05-01] LABS: ~Lactic Acid-LAB USE ONLY 1.4 mmol/L (0.5-2.0)
[2023-05-01] MEDS: Midodrine HCl 10 MG TABLET PO (02:45)
[2023-05-01 05:42] LABS: Glucose, Whole Blood 87 mg/dL (60-115)
[2023-05-01] MEDS: Pantoprazole Sodium 40 MG/10 ML VIAL IVPUSH (05:59)
[2023-05-01] MEDS: Piperacillin Sodium/Tazobactam 3.375 GM in 0.9 % Sodium Chloride 50 ML IV ×3 (06:01→15:56)
[2023-05-01 06:40] LABS: MANUAL DIFF FLAG NO
[2023-05-01 06:50] LABS: INTERNATIONAL NORM RATIO 1.4 (0.9-1.1); Prothrombin Time 16.7 SEC (11.1-13.3)
[2023-05-01 06:54] LABS: Basophils Absolute Auto 0.1 X10*3/uL (0.0-0.2); Basophils Percent Auto 0.6 % (0-2); Eosinophils Absolute Auto 0.1 X10*3/uL (0.0-0.4); Hematocrit 26.9 % (42.0-52.0); Hemoglobin 8.9 g/dl (14.0-18.0); Imm Gran Abs Auto 0.04 X10*3/uL (0.00-0.03); Imm Gran Pct Auto 0.4 % (0.0-0.4); Lymphocytes Percent Auto 20.2 % (20-40); Mean Corpuscular HGB Conc 33.1 g/dl (31.0-36.0); Mean Corpuscular Hemoglobin 29.5 pg (27.0-33.0); Mean Corpuscular Volume 89.1 fL (80.0-98.0); Mean Platelet Volume 10.3 fL (9.4-12.4); Monocytes Absolute Auto 0.6 X10*3/uL (0.1-1.2); Monocytes Percent Auto 6.5 % (2-11); Neutrophils Absolute Auto 6.9 x10*3/uL (2.0-8.3); Neutrophils Percent Auto 71.3 % (45-73); Platelet Count 208 X10*3/uL (160-400); Red Blood Count 3.02 X10*6/uL (4.60-5.80); Red Cell Distribution Width 16.6 % (11.0-16.0); White Blood Count 9.6 X10*3/uL (4.8-10.8)
[2023-05-01 07:05] LABS: Alanine Aminotransferase 10 U/L (0-40); Albumin Level 2.5 g/dL (3.5-5.0); Alkaline Phosphatase 89 U/L (39-117); Anion Gap 16 (12-20); Aspartate Amino Transferase 24 U/L (5-37); Bilirubin Total 1.3 mg/dL (0.0-1.0); Blood Urea Nitrogen 35 mg/dL (9-16); Calcium 8.1 mg/dL (8.4-10.2); Carbon Dioxide 17 mmol/L (22-29); Chloride 113 mmol/L (96-108); Creatinine Clr Calc Pharmacy 48.8; Estimated Glomerular Filt Rate 41; Glucose Random 100 mg/dL (60-115); Potassium 3.9 mmol/L (3.3-5.1); Sodium 142 mmol/L (135-145); Total Protein 5.6 g/dL (6.5-8.0)
--- NOTE | 2023-05-01 07:16 | HE.PHANOTE ---
Re: Vanco Continue dose of 1,250mg Q24H with predicted AUC 553. Trough ordered 05/02 at 1900.
[2023-05-01] MEDS: Albumin Human 25 % 100 ML 133.33 ML IV ×2 (08:45→10:41)
--- NOTE | 2023-05-01 09:39 | PC.NURSE ---
iv fluid bag complete. transport at bedside. bringing pt upstairs. albumin complete. no distress.
[2023-05-01] MEDS: Sertraline HCL 50 MG TABLET PO (10:40)
[2023-05-01] MEDS: rifAXIMin 550 MG TABLET PO ×2 (10:40→21:15)
[2023-05-01] MEDS: Naltrexone HCl 50 MG TABLET PO (10:41)
[2023-05-01] MEDS: Folic Acid 1 MG TABLET PO (10:41)
[2023-05-01] MEDS: Lactulose 20 GM/30 ML SOLUTION 30 GM PO (10:41)
[2023-05-01] MEDS: Heparin Sodium,Porcine 5,000 UNIT/ML VIAL 5000 UNIT SUBCUT ×2 (10:42→15:56)
[2023-05-01] MEDS: 0.9 % Sodium Chloride 1,000 ML 80 ML IVCONT (10:43)
[2023-05-01] MEDS: Multivitamin TABLET 1 TAB PO (10:43)
--- NOTE | 2023-05-01 11:34 | MHC.CM.PN ---
IMM 05/01/23, Pt lives with his , she is his HCP, copy requested. Pt said that he did not use any home health services or medical equipment prior to hospital stay. His PCP is: Sharon Zazueta, to transport upon DC. CM to follow and assist with DC plan.
[2023-05-01 11:56] LABS: Glucose, Whole Blood 92 mg/dL (60-115)
[2023-05-01] MEDS: Thiamine HCL 200 MG in 0.9 % Sodium Chloride 100 ML 204 MG IV ×2 (12:34→18:01)
--- NOTE | 2023-05-01 13:21 | PM.GICN ---
History of Present Illness Data of Consult Service Date: 05/01/23 Requesting physician: Lianne Blanco Primary Care Provider: Unknown Physician HPI Reason for consult: hrs This is a 67-year-old gentleman with past medical history chronic with indwelling catheter, GERD, type 2 diabetes, who was brought hospital or worsening confusion abnormal labs. Patient was able to provide very limited history due to encephalopathy. Was able to tell me where he was or why he was here. It seems that patient had a recent hospitalization at [facility] from where he was sent to the rehab. He had preliminary workup done for confusion that was positive for bacteremia and [facility]. On initial evaluation, he was noted to have leukocytosis well as abnormal Chem 7 with creatinine up to 2.08 lactate of 3.0 these have improved since yesterday. Noted recurrent urinary infections. CT abdomen and pelvis without contrast was also performed which is not officially been read yet, however shows gross ascites. Interestingly, platelets LFTs are more or less normal. From recent hospitalization at [facility] also underwent upper endoscopy for melena and was not noted to have any signs portal hypertension including gastropathy or varices. Review of Systems Review of Systems: Yes all other systems are reviewed and are negative [facility] Past Medical History Medical History (Updated 05/01/23 @ 13:22 by Belinda Suazo MD) Orthostatic hypotension Chronic liver disease Type 2 diabetes mellitus Social History Social History Housing: Assisted Living Facility Patient Tobacco Use Status: Former Tobacco user service: No Meds Allergies Allergy/AdvReac Type Severity Reaction Status Date / Time lisinopril Allergy Angioedema Verified 04/30/23 17:28 scallops Allergy Angioedema Verified 04/30/23 17:28 Active Medications: Current Medications Dextrose (Dextrose 50 % 25 Gm/50 Ml Syringe) 25 gm IVPUSH Q15M PRN; Protocol PRN Reason: per Hypoglycemia Standing Ord. Folic Acid (Folic Acid 1 Mg Tablet) 1 mg PO DAILY [facility] Last Admin: 05/01/23 10:41 Dose: 1 mg Glucose (Glucose Gel 15 Gm Gel..Gram.) 15 gm PO Q15M PRN; Protocol PRN Reason: per Hypoglycemia Standing Ord. Heparin Sodium (Porcine) (Heparin Sodium,Porcine 5,000 Unit/Ml Vial) 5,000 unit SUBCUT Q8H [facility] Last Admin: 05/01/23 10:42 Dose: 5,000 unit Sodium Chloride (Ns) 1,000 mls @ 80 mls/hr IVCONT .[id number] [facility] Last Admin: 05/01/23 10:43 Dose: 80 mls/hr Piperacillin Sod/Tazobactam (Sod 3.375 gm/ Sodium Chloride) 50 mls @ 100 mls/hr IV Q6H [facility] Last Infusion: 05/01/23 06:34 Dose: Infused Vancomycin HCl 1,250 mg/ (Sodium Chloride) 250 mls @ 166.667 mls/hr IV Q24H [facility] Thiamine HCl 200 mg/ Sodium (Chloride) 102 mls @ 204 mls/hr IV Q8H [facility] Last Admin: 05/01/23 12:34 Dose: 204 mls/hr Insulin Human Lispro (Insulin Lispro 100 Unit/Ml 3 Ml Vial) 0 unit SUBCUT Q6H [facility]; Protocol Last Admin: 05/01/23 12:34 Dose: Not Given Lactulose (Lactulose 20 Gm/30 Ml Solution) 30 gm PO TID [facility] Last Admin: 05/01/23 10:41 Dose: 30 gm Midodrine (Midodrine Hcl 10 Mg Tablet) 10 mg PO TID@0600,1200,1800 [facility] Last Admin: 05/01/23 02:45 Dose: 10 mg Multivitamins/Vitamin C (Multivitamin Tablet) 1 tab PO DAILY [facility] Last Admin: 05/01/23 10:43 Dose: 1 tab Naltrexone HCl (Naltrexone Hcl 50 Mg Tablet) 50 mg PO DAILY [facility] Last Admin: 05/01/23 10:41 Dose: 50 mg Pantoprazole Sodium (Pantoprazole Sodium 40 Mg/10 Ml Vial) 40 mg IVPUSH DAILY@0630 [facility] Last Admin: 05/01/23 05:59 Dose: 40 mg Pharmacy Consult (Consult Rx Vancomycin Dosing) 1 each MISCELLANE DAILY PRN PRN Reason: Consult order Rifaximin (Rifaximin 550 Mg Tablet) 550 mg PO BID [facility] Last Admin: 05/01/23 10:40 Dose: 550 mg Sertraline HCl (Sertraline Hcl 50 Mg Tablet) 50 mg PO DAILY [facility] Last Admin: 05/01/23 10:40 Dose: 50 mg Sodium Chloride (0.9 % Sodium Chloride Flush 3 Ml Syringe) 3 ml IVFLUSH QSHIFT [facility] Last Admin: 05/01/23 07:51 Dose: Not Given Home Medications Medication Instructions Recorded Confirmed Last Taken Type acetaminophen 325 mg tablet 650 mg PO QID PRN Pain 04/30/23 04/30/23 Unknown History folic acid 1 mg tablet 1 mg PO DAILY 04/30/23 04/30/23 Unknown History gabapentin 100 mg capsule 100 mg PO TID 04/30/23 04/30/23 Unknown History insulin glargine 100 unit/mL (3 30 unit subcut BEDTIME 04/30/23 04/30/23 Unknown History mL) subcutaneous pen (Lantus Solostar U-100 Insulin) insulin lispro 100 unit/mL 0 sliding scale dose subcut TIDAC 04/30/23 04/30/23 Unknown History subcutaneous pen (Humalog KwikPen (U-100) Insulin) lactulose 10 gram/15 mL oral 45 ml PO TID 04/30/23 04/30/23 Unknown History solution melatonin 3 mg tablet 3 mg PO BEDTIME Sleep 04/30/23 04/30/23 Unknown History midodrine 10 mg tablet 10 mg PO TID@0600,1200,1800 04/30/23 04/30/23 Unknown History multivitamin 1 tab PO DAILY 04/30/23 04/30/23 Unknown History naltrexone 50 mg tablet 50 mg PO DAILY 04/30/23 04/30/23 Unknown History pantoprazole 40 mg tablet,delayed 40 mg PO DAILY 04/30/23 04/30/23 Unknown History release rifaximin 550 mg tablet (Xifaxan) 550 mg PO BID 04/30/23 04/30/23 Unknown History sertraline 50 mg tablet 50 mg PO DAILY 04/30/23 04/30/23 Unknown History thiamine HCl (vitamin B1) 100 mg 100 mg PO DAILY 04/30/23 04/30/23 Unknown History tablet Physical Exam Vital Signs: Vital Signs: Last Vital Signs Temp 98.2 F 05/01/23 11:51 Pulse 64 05/01/23 11:51 Resp 19 05/01/23 11:51 BP 92/50 L 05/01/23 11:51 Pulse Ox 98 05/01/23 11:51 O2 Del Method Room Air 05/01/23 11:51 BMI result Body Mass Index 27.9 Elderly gent, unkempt Nonicteric Overt respiratory distress Soft, nontender, distended Alert oriented x1, no asterixis Echymosis on arms Results Labs 05/01/23 05:43 05/01/23 05:43 Labs: Short CBC 04/30/23 05/01/23 Range/Units 17:27 05:43 WBC 13.0 H 9.6 (4.8-10.8) X10*3/uL Hgb 10.8 L 8.9 L (14.0-18.0) g/dl Hct 33.2 L 26.9 L (42.0-52.0) % Plt Count 263 208 (160-400) X10*3/uL BMP 04/30/23 05/01/23 17:27 05:43 Sodium 141 142 Potassium 4.6 3.9 Chloride 109 H 113 H Carbon Dioxide 20 L 17 L BUN 38 H 35 H Creatinine 2.08 H 1.67 H Calcium 8.9 8.1 L D Liver Function 04/30/23 05/01/23 Range/Units 17:27 05:43 Total Bilirubin 1.1 H 1.3 H (0.0-1.0) mg/dL AST 19 24 (5-37) U/L ALT 11 10 (0-40) U/L Alkaline Phosphatase 118 H 89 (39-117) U/L Albumin 2.4 L 2.5 L (3.5-5.0) g/dL Urine 04/30/23 Range/Units 18:43 Urine Color Dark Yellow Urine Appearance Turbid Urine pH 7.0 (5.0-9.0) Ur Specific [place] 1.025 (1.005-1.025) Urine Protein 100 (2+) H (Neg-Trace) mg/dL Urine Glucose (UA) Negative (Negative) mg/dL Microbiology Microbiology Results: Microbiology 04/30/23 18:55 Urine Catheterized - Gordon Catheter Urine Culture - Preliminary Culture too young to evaluate. Assessment and Plan (1) Catheter-associated urinary tract infection: Qualifiers: Encounter type: initial encounter Indwelling urinary catheter type: indwelling urethral catheter Qualified Code(s): T83.511A - Infection and inflammatory reaction due to indwelling urethral catheter, initial encounter; N39.0 - Urinary tract infection, site not specified Status: Acute (2) Encephalopathy: Status: Acute (3) Acute on chronic anemia: Status: Acute (4) Acute kidney injury: Status: Acute Plan Gastroenterology has been consulted for question hepatorenal syndrome, however it is unclear what the nature of his chronic liver disease is. Suspect ascites may not be from portal HTN given normal platelet count and spleen size. [place] [facility] [place] any [place]G or varices. Would recommend work up as below. Kidney injury appears to be from prenal azotemia and hypovolumia given hyaline casts. Cr is already improving which is promising. Will cont to manage with IV albumin. - Start allbumin 25% 100ml QID x 2 days - Can also give 1L of LR @ 100ml/h if not already given at admission - Daily BMP. - Decision to add octreotide and midodrine contingent on findings of paracentesis (see below) - US Abd with doppler - US kidneys and bladder - ?? etiology of ascites since platelet count normal and spleen not enlarged (i.e not indicative of portal HTN). Recommend DIAGNOSTIC para to be sent for cell count, culture, cytology, albumin and total protein - Encephalopathy appears to be multifactorial - does not have typical hepatic flap on exam however can cont lactulose and rifaximin for now. Also needs treatment of underlying infection. Thank you for allowing me to participate in his care. Please do not hesitate to reach out for any questions or concerns. Procedures Date of Service Date of Service: 05/01/23
--- NOTE | 2023-05-01 15:33 | P.PNIM_ITS ---
Subjective Subjective Date of Service: 05/01/23 Interval History: Borderline BP, PENNY, possible bacteremia Review of Systems Mental status somewhat improving No fever or abdominal pain No cough Physical Exam 2 Vital Signs: Vital Signs: Last Vital Signs Temp 98.2 F 05/01/23 11:51 Pulse 64 05/01/23 11:51 Resp 19 05/01/23 11:51 BP 92/50 L 05/01/23 11:51 Pulse Ox 98 05/01/23 11:51 O2 Del Method Room Air 05/01/23 11:51 BMI result Body Mass Index 27.9 Appearance: Alert.? Oriented,menatl status improving , somewhat confused .? cvs: rrr, [id number]. res: clear to auscultation ,no rhonchii or wheezing abd: no rebound or guarding ,nt, bs present,ascitis possible . ext pulses present , no cyanosis . neuro: axo2 , nonfocal. Objective Data Active Medications Dextrose (Dextrose 50 % 25 Gm/50 Ml Syringe) 25 gm IVPUSH Q15M PRN; Protocol PRN Reason: per Hypoglycemia Standing Ord. Folic Acid (Folic Acid 1 Mg Tablet) 1 mg PO DAILY [facility] Last Admin: 05/01/23 10:41 Dose: 1 mg Documented By: LAVERNE Glucose (Glucose Gel 15 Gm Gel..Gram.) 15 gm PO Q15M PRN; Protocol PRN Reason: per Hypoglycemia Standing Ord. Heparin Sodium (Porcine) (Heparin Sodium,Porcine 5,000 Unit/Ml Vial) 5,000 unit SUBCUT Q8H [facility] Last Admin: 05/01/23 10:42 Dose: 5,000 unit Documented By: LAVERNE Sodium Chloride (Ns) 1,000 mls @ 80 mls/hr IVCONT .[id number] [facility] Last Admin: 05/01/23 10:43 Dose: 80 mls/hr Documented By: LAVERNE Piperacillin Sod/Tazobactam (Sod 3.375 gm/ Sodium Chloride) 50 mls @ 100 mls/hr IV Q6H [facility] Last Infusion: 05/01/23 06:34 Dose: Infused Documented By: ANUJAANRasheed Vancomycin HCl 1,250 mg/ (Sodium Chloride) 250 mls @ 166.667 mls/hr IV Q24H [facility] Thiamine HCl 200 mg/ Sodium (Chloride) 102 mls @ 204 mls/hr IV Q8H [facility] Last Infusion: 05/01/23 14:05 Dose: Infused Documented By: LAVERNE Insulin Human Lispro (Insulin Lispro 100 Unit/Ml 3 Ml Vial) 0 unit SUBCUT Q6H [facility]; Protocol Last Admin: 05/01/23 12:34 Dose: Not Given Documented By: SMITH Non-Admin Reason: No Insulin Coverage Lactulose (Lactulose 20 Gm/30 Ml Solution) 30 gm PO TID [facility] Last Admin: 05/01/23 10:41 Dose: 30 gm Documented By: LAVERNE Midodrine (Midodrine Hcl 5 Mg Tablet) 10 mg PO TID@0600,1200,1800 [facility] Multivitamins/Vitamin C (Multivitamin Tablet) 1 tab PO DAILY [facility] Last Admin: 05/01/23 10:43 Dose: 1 tab Documented By: LAVERNE Naltrexone HCl (Naltrexone Hcl 50 Mg Tablet) 50 mg PO DAILY [facility] Last Admin: 05/01/23 10:41 Dose: 50 mg Documented By: LAVERNE Pantoprazole Sodium (Pantoprazole Sodium 40 Mg/10 Ml Vial) 40 mg IVPUSH DAILY@0630 [facility] Last Admin: 05/01/23 05:59 Dose: 40 mg Documented By: JERMAINE Pharmacy Consult (Consult Rx Vancomycin Dosing) 1 each MISCELLANE DAILY PRN PRN Reason: Consult order Rifaximin (Rifaximin 550 Mg Tablet) 550 mg PO BID [facility] Last Admin: 05/01/23 10:40 Dose: 550 mg Documented By: LAVERNE Sertraline HCl (Sertraline Hcl 50 Mg Tablet) 50 mg PO DAILY [facility] Last Admin: 05/01/23 10:40 Dose: 50 mg Documented By: LAVERNE Sodium Chloride (0.9 % Sodium Chloride Flush 3 Ml Syringe) 3 ml IVFLUSH QSHIFT [facility] Last Admin: 05/01/23 07:51 Dose: Not Given Documented By: FRANCISCO Non-Admin Reason: IV Running Labs 05/01/23 05:43 05/01/23 05:43 Labs: Laboratory Results - last 24 hr 04/30/23 04/30/23 04/30/23 17:27 17:28 18:43 MCV 88.8 MCH 28.9 MCHC 32.5 RDW 16.5 H Plt Count 263 MPV 9.8 Immature Gran % (Auto) 0.5 H Neut % (Auto) 77.7 H Lymph % (Auto) 14.8 L [place] % (Auto) 5.7 Eos % (Auto) 0.8 Baso % (Auto) 0.5 Lymph # (Auto) 1.9 [place] # (Auto) 0.7 Eos # (Auto) 0.1 Baso # (Auto) 0.1 Abs Immat Gran (auto) 0.07 H Absolute Neuts (auto) 10.1 H Absolute Nucleated RBC 0.000 Nucleated RBC % (auto) 0.0 PT INR Anion Gap 17 Estim Creat Clear Calc 39.2 Estimated GFR 32 POC Glucose Random Glucose 120 H Lactic Acid 2.8 H* Lactic Acid F/U @ 2Hr Lactic Acid F/U @ 4Hr Calcium 8.9 Magnesium 2.0 Total Bilirubin 1.1 H AST 19 ALT 11 Alkaline Phosphatase 118 H Ammonia 19 Total Protein 6.5 Albumin 2.4 L Lipase 7 L Urine Color Dark Yellow Urine Appearance Turbid Urine pH 7.0 Ur Specific [place] 1.025 Urine Protein 100 (2+) H Urine Glucose (UA) Negative Urine Ketones Trace Urine Blood Large (3+) H Urine Nitrite Positive H Ur Leukocyte Esterase Moderate (2+) H Urine RBC >20 H Urine WBC >50 H Ur Squamous Epith Cells 0-2 Urine Bacteria 4+ Hyaline Casts 3-5 COVID-19 (LISSETH) Negative COVID-19 Clin Com See Note Influenza Type A (BENNY) Negative Influenza Type B (BENNY) Negative Influenza A & B Note See Note 04/30/23 04/30/23 04/30/23 20:34 23:47 23:50 MCV MCH MCHC RDW Plt Count MPV Immature Gran % (Auto) Neut % (Auto) Lymph % (Auto) [place] % (Auto) Eos % (Auto) Baso % (Auto) Lymph # (Auto) [place] # (Auto) Eos # (Auto) Baso # (Auto) Abs Immat Gran (auto) Absolute Neuts (auto) Absolute Nucleated RBC Nucleated RBC % (auto) PT INR Anion Gap Estim Creat Clear Calc Estimated GFR POC Glucose 97 Random Glucose Lactic Acid Lactic Acid F/U @ 2Hr 3.0 H* Lactic Acid F/U @ 4Hr 1.4 Calcium Magnesium Total Bilirubin AST ALT Alkaline Phosphatase Ammonia Total Protein Albumin Lipase Urine Color Urine Appearance Urine pH Ur Specific [place] Urine Protein Urine Glucose (UA) Urine Ketones Urine Blood Urine Nitrite Ur Leukocyte Esterase Urine RBC Urine WBC Ur Squamous Epith Cells Urine Bacteria Hyaline Casts COVID-19 (LISSETH) COVID-19 Clin Com Influenza Type A (BENNY) Influenza Type B (BENNY) Influenza A & B Note 05/01/23 05/01/23 05/01/23 05:39 05:43 11:49 MCV 89.1 MCH 29.5 MCHC 33.1 RDW 16.6 H Plt Count 208 MPV 10.3 Immature Gran % (Auto) 0.4 Neut % (Auto) 71.3 Lymph % (Auto) 20.2 [place] % (Auto) 6.5 Eos % (Auto) 1.0 Baso % (Auto) 0.6 Lymph # (Auto) 2.0 [place] # (Auto) 0.6 Eos # (Auto) 0.1 Baso # (Auto) 0.1 Abs Immat Gran (auto) 0.04 H Absolute Neuts (auto) 6.9 Absolute Nucleated RBC 0.000 Nucleated RBC % (auto) 0.0 PT 16.7 H INR 1.4 H Anion Gap 16 Estim Creat Clear Calc 48.8 Estimated GFR 41 POC Glucose 87 92 Random Glucose 100 Lactic Acid Lactic Acid F/U @ 2Hr Lactic Acid F/U @ 4Hr Calcium 8.1 L D Magnesium Total Bilirubin 1.3 H AST 24 ALT 10 Alkaline Phosphatase 89 Ammonia Total Protein 5.6 L Albumin 2.5 L Lipase Urine Color Urine Appearance Urine pH Ur Specific [place] Urine Protein Urine Glucose (UA) Urine Ketones Urine Blood Urine Nitrite Ur Leukocyte Esterase Urine RBC Urine WBC Ur Squamous Epith Cells Urine Bacteria Hyaline Casts COVID-19 (LISSETH) COVID-19 Clin Com Influenza Type A (BENNY) Influenza Type B (BENNY) Influenza A & B Note Microbiology Microbiology Results: Microbiology 04/30/23 18:55 Urine Culture - Preliminary Urine Catheterized - Gordon Catheter Culture too young to evaluate. Assessment and Plan (1) Chronic liver disease: Status: Acute (2) Encephalopathy: Status: Acute (3) Acute kidney injury: Status: Acute (4) Orthostatic hypotension: Status: Acute Assessment and Plan: 67 years old man admitted with: Possible Bacteremia secondary to Gram-negative bacilli/catheter-associated UTI + Gram-positive cocci( as per ed documentation -blood culture positive in prison): Two SIRS criteria: Leukocytosis and suspected infection + severe sepsis criteria: leucocytosis seems improved, no fevers urine and blood cultures pending acute lactic acidosis seems resolved. has orthostatsis -still boderline bp. plan: continue vanco and zosyn intiated on 04/30, monitor vanco trough, renal function and electrolytes Infectious disease evaluation, also added urology evaluation-Exchange indwelling urinary catheter. Encephalopathy likely multifactorial:(possible toxic metabolic) Mild hepatic encephalopathy, acute illness, medication. NPO except meds. Aspiration precautions Continue lactulose and rifixamin added albumin /paracentesis for ascitis. Hold melatonin and gabapentin. Continue IV antibiotics. Acute kidney injury likely multifactorial: Sepsis/bacteremia, ? hepatorenal syndrome. Continue IV fluids. Continue to monitor renal function. Avoid nephrotoxic agents. ? Hepatorenal Nephrology/ gi consult. GERD. PPI IV. Orthostatic hypotension. Continue midodrine 10 mg p.o. t.i.d. Type 2 diabetes mellitus. Blood glucose monitoring every 6 hours while NPO. Blood glucose control with insulin sliding scale for now. hold coverage below 200 mg/dl. DVT prophylaxis: Heparin subcut. GI prophylaxis: Protonix Patient will need hospitalization for at least 48-72 hrs for bacteremia secondary to catheter associated UTI treatment with IV antibiotics and IV fluids, renal function electrolyte monitoring as well as mental status monitoring. Quality Stroke Does the patient have a stroke diagnosis?: No VTE Prior VTE?: No VTE Risk Level:: Medical - moderate - high VTE Device Contraindication: N/A - Device Ordered VTE Drug Contraindication: N/A - Med Ordered
[2023-05-01 15:52] LABS: MN% 80.3 %; PMN% 19.7 %; RBC Peritoneal Fluid < 0.002 X10*6/uL; WBC Peritoneal Fluid 0.153 X10*3/uL
[2023-05-01] MEDS: 0.9 % Sodium Chloride Flush 3 ML SYRINGE IVFLUSH (15:56)
[2023-05-01 16:45] LABS: BF Shift QC OK YES; Man Diluent Bkgrd OK YES
[2023-05-01 16:46] LABS: Lymphocyte Peritoneal Fl 9 %; Monocytes Peritoneal Fl 24 %; Neutrophils Peritoneal Fluid 25 %; Other Peritioneal Fl 42 %
--- NOTE | 2023-05-01 17:01 | P.CNID_ITS ---
History of Present Illness Data of Consult Service Date: 05/01/23 Requesting physician: Lianne Blanco Primary Care Provider: Unknown Physician HPI Reason for consult: bacteremia He presents from [facility] with reported increased confusion. Labs done there show / blood gram negative rods and gram positive cocci with proteus species identified with negative resistance genes by PCR. He has WBC of 19.3. He has CT scan with large amount ascites reported/cirrhosis. Review of Systems 2 Review of Systems: Yes Unobtainable due to mental condition [facility] Past Medical History Medical History (Updated 05/01/23 @ 17:05 by Brenna Cosme MD) 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 Orthostatic hypotension Chronic liver disease Type 2 diabetes mellitus Family History Family history: reviewed and not pertinent Social History Social History Housing: Assisted Living Facility Patient Tobacco Use Status: Former Tobacco user service: No Meds Allergies Allergy/AdvReac Type Severity Reaction Status Date / Time lisinopril Allergy Angioedema Verified 04/30/23 17:28 scallops Allergy Angioedema Verified 04/30/23 17:28 Active Medications: Current Medications Dextrose (Dextrose 50 % 25 Gm/50 Ml Syringe) 25 gm IVPUSH Q15M PRN; Protocol PRN Reason: per Hypoglycemia Standing Ord. Folic Acid (Folic Acid 1 Mg Tablet) 1 mg PO DAILY [facility] Last Admin: 05/01/23 10:41 Dose: 1 mg Glucose (Glucose Gel 15 Gm Gel..Gram.) 15 gm PO Q15M PRN; Protocol PRN Reason: per Hypoglycemia Standing Ord. Heparin Sodium (Porcine) (Heparin Sodium,Porcine 5,000 Unit/Ml Vial) 5,000 unit SUBCUT Q8H [facility] Last Admin: 05/01/23 15:56 Dose: 5,000 unit Sodium Chloride (Ns) 1,000 mls @ 80 mls/hr IVCONT .[id number] [facility] Last Admin: 05/01/23 10:43 Dose: 80 mls/hr Vancomycin HCl 1,250 mg/ (Sodium Chloride) 250 mls @ 166.667 mls/hr IV Q24H [facility] Thiamine HCl 200 mg/ Sodium (Chloride) 102 mls @ 204 mls/hr IV Q8H [facility] Last Infusion: 05/01/23 14:05 Dose: Infused Piperacillin Sod/Tazobactam (Sod 3.375 gm/ Sodium Chloride) 50 mls @ 100 mls/hr IV Q6H [facility] Last Infusion: 05/01/23 16:52 Dose: Infused Insulin Human Lispro (Insulin Lispro 100 Unit/Ml 3 Ml Vial) 0 unit SUBCUT Q6H [facility]; Protocol Last Admin: 05/01/23 12:34 Dose: Not Given Lactulose (Lactulose 20 Gm/30 Ml Solution) 30 gm PO TID [facility] Last Admin: 05/01/23 15:55 Dose: Not Given Midodrine (Midodrine Hcl 5 Mg Tablet) 10 mg PO TID@0600,1200,1800 [facility] Multivitamins/Vitamin C (Multivitamin Tablet) 1 tab PO DAILY [facility] Last Admin: 05/01/23 10:43 Dose: 1 tab Naltrexone HCl (Naltrexone Hcl 50 Mg Tablet) 50 mg PO DAILY [facility] Last Admin: 05/01/23 10:41 Dose: 50 mg Pantoprazole Sodium (Pantoprazole Sodium 40 Mg/10 Ml Vial) 40 mg IVPUSH DAILY@0630 [facility] Last Admin: 05/01/23 05:59 Dose: 40 mg Pharmacy Consult (Consult Rx Vancomycin Dosing) 1 each MISCELLANE DAILY PRN PRN Reason: Consult order Rifaximin (Rifaximin 550 Mg Tablet) 550 mg PO BID [facility] Last Admin: 05/01/23 10:40 Dose: 550 mg Sertraline HCl (Sertraline Hcl 50 Mg Tablet) 50 mg PO DAILY [facility] Last Admin: 05/01/23 10:40 Dose: 50 mg Sodium Chloride (0.9 % Sodium Chloride Flush 3 Ml Syringe) 3 ml IVFLUSH QSHIFT [facility] Last Admin: 05/01/23 15:56 Dose: 3 ml Home Medications Medication Instructions Recorded Confirmed Last Taken Type acetaminophen 325 mg tablet 650 mg PO QID PRN Pain 04/30/23 04/30/23 Unknown History folic acid 1 mg tablet 1 mg PO DAILY 04/30/23 04/30/23 Unknown History gabapentin 100 mg capsule 100 mg PO TID 04/30/23 04/30/23 Unknown History insulin glargine 100 unit/mL (3 30 unit subcut BEDTIME 04/30/23 04/30/23 Unknown History mL) subcutaneous pen (Lantus Solostar U-100 Insulin) insulin lispro 100 unit/mL 0 sliding scale dose subcut TIDAC 04/30/23 04/30/23 Unknown History subcutaneous pen (Humalog KwikPen (U-100) Insulin) lactulose 10 gram/15 mL oral 45 ml PO TID 04/30/23 04/30/23 Unknown History solution melatonin 3 mg tablet 3 mg PO BEDTIME Sleep 04/30/23 04/30/23 Unknown History midodrine 10 mg tablet 10 mg PO TID@0600,1200,1800 04/30/23 04/30/23 Unknown History multivitamin 1 tab PO DAILY 04/30/23 04/30/23 Unknown History naltrexone 50 mg tablet 50 mg PO DAILY 04/30/23 04/30/23 Unknown History pantoprazole 40 mg tablet,delayed 40 mg PO DAILY 04/30/23 04/30/23 Unknown History release rifaximin 550 mg tablet (Xifaxan) 550 mg PO BID 04/30/23 04/30/23 Unknown History sertraline 50 mg tablet 50 mg PO DAILY 04/30/23 04/30/23 Unknown History thiamine HCl (vitamin B1) 100 mg 100 mg PO DAILY 04/30/23 04/30/23 Unknown History tablet Physical Exam 2 Vital Signs: Vital Signs: Last Vital Signs Temp 97.1 F 05/01/23 16:15 Pulse 62 05/01/23 16:15 Resp 18 05/01/23 16:15 BP 91/45 L 05/01/23 16:15 Pulse Ox 98 05/01/23 16:15 O2 Del Method Room Air 05/01/23 16:15 BMI result Body Mass Index 27.9 Const: General: cooperative HEENT: Head: Yes normal to inspection Face and sinus: Yes normal facial exam Mouth: Normal oral and palatal mucosa present Teeth and gingiva: d entition normal Eyes: General: appearance normal, both eyes and all related structures P upils: Equal, round and reactive pupils present Resp: Effort & Inspection: normal respiratory effort Cardio: Rate: regular rate Rhythm: regular rhythm GI: Other: increased abdominal girth Palpation (GI): Soft to palpation and nontender : General: Yes no CVA tenderness Back/Spine/Pelvis: Back: no CVA tenderness Skin: General skin exam: no rashes or lesions noted Neuro: General: moves all extremities Cranial nerves: Yes Equal, round and reactive pupils present Extrem: General: Yes normal to inspection Psych: Appearance: grossly normal Results Labs 05/01/23 05:43 05/01/23 05:43 Labs: Short CBC 04/30/23 05/01/23 Range/Units 17:27 05:43 WBC 13.0 H 9.6 (4.8-10.8) X10*3/uL Hgb 10.8 L 8.9 L (14.0-18.0) g/dl Hct 33.2 L 26.9 L (42.0-52.0) % Plt Count 263 208 (160-400) X10*3/uL BMP 04/30/23 05/01/23 17:27 05:43 Sodium 141 142 Potassium 4.6 3.9 Chloride 109 H 113 H Carbon Dioxide 20 L 17 L BUN 38 H 35 H Creatinine 2.08 H 1.67 H Calcium 8.9 8.1 L D Liver Function 04/30/23 05/01/23 Range/Units 17:27 05:43 Total Bilirubin 1.1 H 1.3 H (0.0-1.0) mg/dL AST 19 24 (5-37) U/L ALT 11 10 (0-40) U/L Alkaline Phosphatase 118 H 89 (39-117) U/L Albumin 2.4 L 2.5 L (3.5-5.0) g/dL Urine 04/30/23 Range/Units 18:43 Urine Color Dark Yellow Urine Appearance Turbid Urine pH 7.0 (5.0-9.0) Ur Specific [place] 1.025 (1.005-1.025) Urine Protein 100 (2+) H (Neg-Trace) mg/dL Urine Glucose (UA) Negative (Negative) mg/dL Microbiology Microbiology Results: Microbiology 04/30/23 18:55 Urine Catheterized - Gordon Catheter Urine Culture - Preliminary Culture too young to evaluate. Assessment and Plan (1) Chronic liver disease: Status: Acute (2) Encephalopathy: Status: Acute (3) 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: Status: Acute He has possible SBP. Other causes possible UTI. There is no distention gallbladder. Plan Would give IV Ceftriaxone 2 g daily. Stop piperacillin/tazobactam and Vancomycin for now. Await final cultures. See GI ascites
[2023-05-01 17:16] LABS: Glucose, Whole Blood 108 mg/dL (60-115)
[2023-05-01] MEDS: Midodrine HCl 5 MG TABLET 10 MG PO (18:02)
[2023-05-01 18:06] LABS: Glucose Peritoneal Fluid 112 MG/DL; LDH Peritoneal Fluid 70 U/L
[2023-05-01] MEDS: cefTRIAXone sodium 2 GM in 0.9 % Sodium Chloride 50 ML IV (19:47)
[2023-05-01] MEDS: vancomycin HCL 1,250 MG in 0.9 % Sodium Chloride 250 ML 166.67 MG IV (21:15)
[2023-05-01 21:20] LABS: Glucose, Whole Blood 108 mg/dL (60-115)
[2023-05-01 23:42] LABS: Glucose, Whole Blood 101 mg/dL (60-115)
[2023-05-02] MEDS: Heparin Sodium,Porcine 5,000 UNIT/ML VIAL 5000 UNIT SUBCUT ×3 (01:03→17:09)
[2023-05-02] MEDS: Thiamine HCL 200 MG in 0.9 % Sodium Chloride 100 ML 204 MG IV ×3 (02:25→17:09)
[2023-05-02 04:00] VITALS: BP 101/53; PULSE 63; RESP 18; TEMP 36.8; O2SAT 96
[2023-05-02 05:30] LABS: Glucose, Whole Blood 109 mg/dL (60-115)
[2023-05-02] MEDS: Midodrine HCl 5 MG TABLET 10 MG PO ×3 (05:45→17:09)
[2023-05-02] MEDS: 0.9 % Sodium Chloride 1,000 ML 80 ML IVCONT (05:45)
[2023-05-02] MEDS: Pantoprazole Sodium 40 MG/10 ML VIAL IVPUSH (05:45)
[2023-05-02 07:40] VITALS: BP 103/51; PULSE 66; RESP 17; TEMP 37; O2SAT 95
[2023-05-02 07:57] LABS: Creatinine Clr Calc Pharmacy 53.1; Estimated Glomerular Filt Rate 51
[2023-05-02] MEDS: rifAXIMin 550 MG TABLET PO ×2 (09:33→22:57)
[2023-05-02] MEDS: Multivitamin TABLET 1 TAB PO (09:34)
[2023-05-02] MEDS: Folic Acid 1 MG TABLET PO (09:34)
[2023-05-02] MEDS: Sertraline HCL 50 MG TABLET PO (09:34)
[2023-05-02] MEDS: Naltrexone HCl 50 MG TABLET PO (09:34)
--- NOTE | 2023-05-02 10:35 | MHC.CM.PN ---
EMR REVIEWED, CM ATTEMPTED TO CONTACT MAAME 9:45AM [phone] TO DISCUSS INSURANCE HE IS UNDER SELF PAY, NO ANSWER AND DETAILED MESSAGE LEFT. CM CONTACTED V [facility] AT 9:47AM, PER [facility] PT WAS PRIVATE PAYING AFTER PT'S STR DAYS RAN OUT, [facility] DOES REPORT THAT IF PT HAS A QUALIFYING STAY HE WOULD BE ABLE TO RETURN UNDER HIS [employer] MEDICARE DAYS. CM CONTACTED INSURANCE VERIFICATION AND THEY WERE GIVEN PT'S SOCIAL SECURITY NUMBER THEY WERE ONLY ABLE TO FIND HIS AET[employer] DENTAL PLAN. CM DID RECEIVE A CALL BACK FROM PT'S MAAME WHILE WRITING THIS NOTE AND MAAME REPORTS PT'S INSURANCE SHOULD BE ACTIVE AND PLAN WILL BE FOR PT TO RETURN TO [facility] PRIVATE PAY VS STR ON AET[employer] MEDICARE BENEFIT. CM WILL CONT TO FOLLOW DC NEEDS.
[2023-05-02 10:44] LABS: Glucose, Whole Blood 120 mg/dL (60-115)
[2023-05-02 11:03] VITALS: BP 115/54; PULSE 72; RESP 16; TEMP 37.1; O2SAT 95
--- NOTE | 2023-05-02 12:54 | PM.UROCN ---
History of Present Illness Consult details Consult date: 05/02/23 Narrative: Andres Frye is a 67 years old man with past medical history significant for alcoholic liver cirrhosis/chronic liver disease, He takes lactulose for hepatic encephalopathy. chronic indwelling urinary catheter, GERD, orthostatic hypotension on midodrine and type 2 diabetes mellitus on insulin, staff noted increased confusion, he was brought to the emergency department from his nursing facility on 04/30/23 and admitted. Blood cultures no growth, urine culture greater than 100,000 colony mixed bacteria. CTAP wo IV contrast - KIDNEYS AND URETERS: The kidneys are normal in size, shape, and attenuation. No hydronephrosis, hydroureter, or calculi seen. No perinephric stranding. BLADDER: Garcia catheter in the bladder. A small amount of air in the bladder presumably related to Garcia catheter placement. Bacteremia. Enlarged prostate gland. 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 Folic Acid (Folic Acid 1 Mg Tablet) 1 mg PO DAILY [facility] Last Admin: 05/02/23 09:34 Dose: 1 mg Glucose (Glucose Gel 15 Gm Gel..Gram.) 15 gm PO Q15M PRN; Protocol PRN Reason: per Hypoglycemia Standing Ord. Heparin Sodium (Porcine) (Heparin Sodium,Porcine 5,000 Unit/Ml Vial) 5,000 unit SUBCUT Q8H [facility] Last Admin: 05/02/23 09:34 Dose: 5,000 unit Sodium Chloride (Ns) 1,000 mls @ 80 mls/hr IVCONT .[id number] [facility] Last Admin: 05/02/23 09:34 Dose: Not Given Vancomycin HCl 1,250 mg/ (Sodium Chloride) 250 mls @ 166.667 mls/hr IV Q24H [facility] Last Infusion: 05/01/23 22:52 Dose: Infused Thiamine HCl 200 mg/ Sodium (Chloride) 102 mls @ 204 mls/hr IV Q8H [facility] Last Infusion: 05/02/23 10:27 Dose: Infused Ceftriaxone Sodium 2 gm/ (Sodium Chloride) 50 mls @ 100 mls/hr IV Q24H [facility] Last Infusion: 05/01/23 21:07 Dose: Infused Insulin Human Lispro (Insulin Lispro 100 Unit/Ml 3 Ml Vial) 0 unit SUBCUT Q6H [facility]; Protocol Last Admin: 05/02/23 10:48 Dose: Not Given Lactulose (Lactulose 20 Gm/30 Ml Solution) 30 gm PO TID [facility] Last Admin: 05/02/23 09:28 Dose: Not Given Midodrine (Midodrine Hcl 5 Mg Tablet) 10 mg PO TID@0600,1200,1800 [facility] Last Admin: 05/02/23 11:53 Dose: 10 mg Multivitamins/Vitamin C (Multivitamin Tablet) 1 tab PO DAILY [facility] Last Admin: 05/02/23 09:34 Dose: 1 tab Naltrexone HCl (Naltrexone Hcl 50 Mg Tablet) 50 mg PO DAILY [facility] Last Admin: 05/02/23 09:34 Dose: 50 mg Pantoprazole Sodium (Pantoprazole Sodium 40 Mg/10 Ml Vial) 40 mg IVPUSH DAILY@0630 [facility] Last Admin: 05/02/23 05:45 Dose: 40 mg Rifaximin (Rifaximin 550 Mg Tablet) 550 mg PO BID [facility] Last Admin: 05/02/23 09:33 Dose: 550 mg Sertraline HCl (Sertraline Hcl 50 Mg Tablet) 50 mg PO DAILY [facility] Last Admin: 05/02/23 09:34 Dose: 50 mg Sodium Chloride (0.9 % Sodium Chloride Flush 3 Ml Syringe) 3 ml IVFLUSH QSHIFT [facility] Last Admin: 05/02/23 09:33 Dose: Not Given Home Medications Medication Instructions Recorded Confirmed Last Taken Type acetaminophen 325 mg tablet 650 mg PO QID PRN Pain 04/30/23 04/30/23 Unknown History folic acid 1 mg tablet 1 mg PO DAILY 04/30/23 04/30/23 Unknown History gabapentin 100 mg capsule 100 mg PO TID 04/30/23 04/30/23 Unknown History insulin glargine 100 unit/mL (3 30 unit subcut BEDTIME 04/30/23 04/30/23 Unknown History mL) subcutaneous pen (Lantus Solostar U-100 Insulin) insulin lispro 100 unit/mL 0 sliding scale dose subcut TIDAC 04/30/23 04/30/23 Unknown History subcutaneous pen (Humalog KwikPen (U-100) Insulin) lactulose 10 gram/15 mL oral 45 ml PO TID 04/30/23 04/30/23 Unknown History solution melatonin 3 mg tablet 3 mg PO BEDTIME Sleep 04/30/23 04/30/23 Unknown History midodrine 10 mg tablet 10 mg PO TID@0600,1200,1800 04/30/23 04/30/23 Unknown History multivitamin 1 tab PO DAILY 04/30/23 04/30/23 Unknown History naltrexone 50 mg tablet 50 mg PO DAILY 04/30/23 04/30/23 Unknown History pantoprazole 40 mg tablet,delayed 40 mg PO DAILY 04/30/23 04/30/23 Unknown History release rifaximin 550 mg tablet (Xifaxan) 550 mg PO BID 04/30/23 04/30/23 Unknown History sertraline 50 mg tablet 50 mg PO DAILY 04/30/23 04/30/23 Unknown History thiamine HCl (vitamin B1) 100 mg 100 mg PO DAILY 04/30/23 04/30/23 Unknown History tablet Physical Exam Vital Signs: Vital Signs: Last Vital Signs Temp 98.7 F 05/02/23 11:03 Pulse 72 05/02/23 11:03 Resp 16 05/02/23 11:03 BP 115/54 L 05/02/23 11:03 Pulse Ox 95 05/02/23 11:03 O2 Del Method Room Air 05/02/23 11:03 BMI result Body Mass Index 27.9 Const: General: no acute distress and well developed HEENT: Head: Yes normocephalic and Yes atraumatic Eyes: Conjunctivae: conjunctivae normal Neck: Neck: Yes normal visual inspection Chest: Chest palpation & inspection: normal inspection of the chest Resp: Effort & Inspection: normal respiratory effort Cardio: Rate: regular rate GI: Other: Abdomen distended Inspection: Yes distended : Other: buried penis, garcia in place Scrotum: scrotum normal Skin: General skin exam: no rashes or lesions noted Extrem: General: No pedal edema Psych: Appearance: grossly normal Affect: normal affect Results Labs 05/01/23 05:43 05/02/23 07:34 Labs: Abnormal lab results 05/02/23 Range/Units 10:41 POC Glucose 120 H (60-115) mg/dL BMP 05/02/23 07:34 Creatinine 1.38 Urine 04/30/23 Range/Units 18:43 Urine Color Dark Yellow Urine Appearance Turbid Urine pH 7.0 (5.0-9.0) Ur Specific [place] 1.025 (1.005-1.025) Urine Protein 100 (2+) H (Neg-Trace) mg/dL Urine Glucose (UA) Negative (Negative) mg/dL All other labs normal. Imaging Additional studies: Date of Service: 04/30/23 EXAMINATION: CT ABDOMEN AND PELVIS WITHOUT CONTRAST CLINICAL INFORMATION: Bacteremia, Distended abdomen. Chronic Garcia catheter. COMPARISON: None available. TECHNIQUE: Multidetector volumetric imaging was performed from the superior aspect of the liver through the pubic symphysis. Sagittal and coronal reformatted images were obtained on the technologist's workstation. This CT examination was performed using dose optimization techniques as appropriate, variously including the following: *Automated exposure control *Adjustment of mA and/or kV according to patient size (this includes techniques or standardized protocols for targeted exams where dose is matched to indication/reason for exam; i.e. extremities or head) *Use of iterative reconstruction technique DLP: 663 mGy-cm FINDINGS: LUNG BASES: The visualized lung bases are unremarkable. LIVER, GALLBLADDER, AND BILIARY TREE: Cirrhotic-appearing liver. No focal liver lesion. Multiple small gallstones in the gallbladder. Gallbladder otherwise normal. No biliary duct dilatation. Large amount of ascites. PANCREAS: Unremarkable. SPLEEN: Unremarkable. ADRENAL GLANDS: Unremarkable. KIDNEYS AND URETERS: The kidneys are normal in size, shape, and attenuation. No hydronephrosis, hydroureter, or calculi seen. No perinephric stranding. BLADDER: Garcia catheter in the bladder. A small amount of air in the bladder presumably related to Garcia catheter placement. Bacteremia. Distended abdomen. Chronic Garcia. GASTROINTESTINAL TRACT: Mild constipation. The small and large bowel are otherwise unremarkable. The appendix is unremarkable. ABDOMINAL WALL: No significant hernia is appreciated. LYMPH NODES: Normal. VASCULAR: Atherosclerotic disease aneurysm. PELVIC VISCERA: Enlarged prostate gland OSSEOUS STRUCTURES: Moderate old-appearing L1 vertebral body bilateral rib fractures varying ages. Degenerative changes of the right. IMPRESSION: Cirrhosis. Large amount of ascites. Gallstones. Garcia catheter in the bladder. Small amount of air in the bladder presumably related to Garcia catheter placement. Enlarged prostate gland. Assessment and Plan (1) Chronic indwelling Garcia catheter: Status: Acute (2) Acute encephalopathy: Status: Acute (3) Bacteremia: Status: Acute (4) Enlarged prostate: Status: Acute Plan Bacteremia the patient is being followed by infectious disease Antibiotics per ID Recommend starting Proscar 5 mg daily Outpatient follow-up with Urology Procedures Date of Service Date of Service: 05/02/23
[2023-05-02 15:18] VITALS: BP 104/50; PULSE 67; RESP 16; TEMP 37; O2SAT 96
--- NOTE | 2023-05-02 15:39 | P.PNIM_ITS ---
Subjective Subjective Date of Service: 05/02/23 Interval History: Borderline BP, PENNY, possible bacteremia Review of Systems Mental status somewhat improving,No fever or abdominal pain No cough Physical Exam 2 Vital Signs: Vital Signs: Last Vital Signs Temp 98.6 F 05/02/23 15:18 Pulse 67 05/02/23 15:18 Resp 16 05/02/23 15:18 BP 104/50 L 05/02/23 15:18 Pulse Ox 96 05/02/23 15:18 O2 Del Method Room Air 05/02/23 15:18 BMI result Body Mass Index 27.9 Appearance: Alert.? Oriented,mental status similar to yesterday, somewhat confused .? cvs: [id number], [id number]. res: clear to auscultation ,no rhonchii or wheezing abd: no rebound or guarding ,nt, bs present,ascitis possible . ext pulses present , no cyanosis . neuro: axo2 , nonfocal. Objective Data Active Medications Dextrose (Dextrose 50 % 25 Gm/50 Ml Syringe) 25 gm IVPUSH Q15M PRN; Protocol PRN Reason: per Hypoglycemia Standing Ord. Folic Acid (Folic Acid 1 Mg Tablet) 1 mg PO DAILY [facility] Last Admin: 05/02/23 09:34 Dose: 1 mg Documented By: PEDRO Glucose (Glucose Gel 15 Gm Gel..Gram.) 15 gm PO Q15M PRN; Protocol PRN Reason: per Hypoglycemia Standing Ord. Heparin Sodium (Porcine) (Heparin Sodium,Porcine 5,000 Unit/Ml Vial) 5,000 unit SUBCUT Q8H [facility] Last Admin: 05/02/23 09:34 Dose: 5,000 unit Documented By: PEDRO Sodium Chloride (Ns) 1,000 mls @ 80 mls/hr IVCONT .[id number] [facility] Last Admin: 05/02/23 09:34 Dose: Not Given Documented By: PEDRO Non-Admin Reason: bag still full Vancomycin HCl 1,250 mg/ (Sodium Chloride) 250 mls @ 166.667 mls/hr IV Q24H [facility] Last Infusion: 05/01/23 22:52 Dose: Infused Documented By: SYLVESTER Thiamine HCl 200 mg/ Sodium (Chloride) 102 mls @ 204 mls/hr IV Q8H [facility] Last Infusion: 05/02/23 10:27 Dose: Infused Documented By: PEDRO Ceftriaxone Sodium 2 gm/ (Sodium Chloride) 50 mls @ 100 mls/hr IV Q24H [facility] Last Infusion: 05/01/23 21:07 Dose: Infused Documented By: SYLVESTER Insulin Human Lispro (Insulin Lispro 100 Unit/Ml 3 Ml Vial) 0 unit SUBCUT Q6H [facility]; Protocol Last Admin: 05/02/23 10:48 Dose: Not Given Documented By: PEDRO Non-Admin Reason: No Insulin Coverage Lactulose (Lactulose 20 Gm/30 Ml Solution) 30 gm PO TID [facility] Last Admin: 05/02/23 13:17 Dose: Not Given Documented By: PEDRO Non-Admin Reason: loose bowel movements Midodrine (Midodrine Hcl 5 Mg Tablet) 10 mg PO TID@0600,1200,1800 [facility] Last Admin: 05/02/23 11:53 Dose: 10 mg Documented By: PEDRO Multivitamins/Vitamin C (Multivitamin Tablet) 1 tab PO DAILY [facility] Last Admin: 05/02/23 09:34 Dose: 1 tab Documented By: PEDRO Naltrexone HCl (Naltrexone Hcl 50 Mg Tablet) 50 mg PO DAILY [facility] Last Admin: 05/02/23 09:34 Dose: 50 mg Documented By: PEDRO Pantoprazole Sodium (Pantoprazole Sodium 40 Mg/10 Ml Vial) 40 mg IVPUSH DAILY@0630 [facility] Last Admin: 05/02/23 05:45 Dose: 40 mg Documented By: SYLVESTER Rifaximin (Rifaximin 550 Mg Tablet) 550 mg PO BID [facility] Last Admin: 05/02/23 09:33 Dose: 550 mg Documented By: PEDRO Sertraline HCl (Sertraline Hcl 50 Mg Tablet) 50 mg PO DAILY [facility] Last Admin: 05/02/23 09:34 Dose: 50 mg Documented By: PEDRO Sodium Chloride (0.9 % Sodium Chloride Flush 3 Ml Syringe) 3 ml IVFLUSH QSHIFT [facility] Last Admin: 05/02/23 09:33 Dose: Not Given Documented By: PEDRO Non-Admin Reason: IV Running Labs 05/01/23 05:43 05/02/23 07:34 Labs: Laboratory Results - last 24 hr 05/01/23 05/01/23 05/01/23 14:49 17:12 21:15 Hold Purple Top Estim Creat Clear Calc Estimated GFR POC Glucose 108 108 Peritoneal WBC 0.153 Peritoneal RBC < 0.002 Periton Neutrophils 25 Periton Lymphocytes 9 Peritoneal Monocytes 24 Peritoneal Other Cells 42 Peritoneal Tot Protein 3.0 Peritoneal LDH 70 Peritoneal Glucose 112 05/01/23 05/02/23 05/02/23 23:38 05:25 07:34 Hold Purple Top SEE NOTE Estim Creat Clear Calc 53.1 Estimated GFR 51 POC Glucose 101 109 Peritoneal WBC Peritoneal RBC Periton Neutrophils Periton Lymphocytes Peritoneal Monocytes Peritoneal Other Cells Peritoneal Tot Protein Peritoneal LDH Peritoneal Glucose 05/02/23 10:41 Hold Purple Top Estim Creat Clear Calc Estimated GFR POC Glucose 120 H Peritoneal WBC Peritoneal RBC Periton Neutrophils Periton Lymphocytes Peritoneal Monocytes Peritoneal Other Cells Peritoneal Tot Protein Peritoneal LDH Peritoneal Glucose Microbiology Microbiology Results: Microbiology 04/30/23 18:55 Urine Culture - Final Urine Catheterized - Gordon Catheter 05/01/23 14:49 Gram Stain - Final Abdominal Fluid Routine Culture - Preliminary No growth to date. Anaerobic Culture - Preliminary No growth to date. 04/30/23 17:27 Blood Culture - Preliminary Blood - Venous No growth after 24 hours. 04/30/23 17:30 Blood Culture - Preliminary Blood - Venous No growth after 24 hours. Assessment and Plan (1) Chronic indwelling Gordon catheter: Status: Acute (2) 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: Status: Acute Plan 67 years old man admitted with: Possible Bacteremia secondary to Gram-negative bacilli/catheter-associated UTI + Gram-positive cocci( as per ed documentation -[facility]): Two SIRS criteria: Leukocytosis and suspected infection + severe sepsis criteria: leucocytosis seems improved, no fevers acute lactic acidosis seems resolved. longterm sent labs-growing Proteus in urine and ablood. urine cultures -mixed and blood cultures negative @24hrs plan: continue vanco and zosyn intiated on 04/30, monitor vanco trough, renal function and electrolytes Infectious disease evaluation, urology evaluation-Exchange indwelling urinary catheter (urology will change catheter ) Encephalopathy likely multifactorial:(possible toxic metabolic) Mild hepatic encephalopathy, acute illness, medication. Aspiration precautions hold lactulose and rifixamin due to diarrhae Hold melatonin and gabapentin. s/p paracentesis -less likely sbp added stool studies. Acute kidney injury likely multifactorial: Sepsis/bacteremia, ? hepatorenal syndrome. Continue IV fluids. Continue to monitor renal function. Avoid nephrotoxic agents. seems improved significantly ,off fluids GERD. PPI IV. Orthostatic hypotension. Continue midodrine 10 mg p.o. t.i.d. Type 2 diabetes mellitus. Blood glucose monitoring every 6 hours while NPO. Blood glucose control with insulin sliding scale for now. hold coverage below 200 mg/dl. DVT prophylaxis: Heparin subcut. GI prophylaxis: Protonix Patient will need hospitalization for at least 48-72 hrs for bacteremia secondary to catheter associated UTI treatment with IV antibiotics and IV fluids, renal function electrolyte monitoring as well as mental status monitoring. Quality Stroke Does the patient have a stroke diagnosis?: No VTE Prior VTE?: No VTE Risk Level:: Medical - moderate - high VTE Device Contraindication: N/A - Device Ordered VTE Drug Contraindication: N/A - Med Ordered
[2023-05-02] MEDS: 0.9 % Sodium Chloride Flush 3 ML SYRINGE IVFLUSH (17:10)
[2023-05-02] MEDS: cefTRIAXone sodium 2 GM in 0.9 % Sodium Chloride 50 ML IV (17:10)
[2023-05-02 18:30] LABS: Glucose, Whole Blood 154 mg/dL (60-115)
[2023-05-02 20:00] VITALS: BP 100/50; PULSE 72; RESP 18; TEMP 36.1; O2SAT 90
[2023-05-02 20:14] LABS: Vancomycin Random 14.8 mcg/mL (15-20)
--- NOTE | 2023-05-02 20:25 | HE.PHANOTE ---
Re Mehran Based on patient's renal function and trough of 14.8, continue dose at 1250mg Q24H. Next trough ordered 05/05 at 1900.
[2023-05-02] MEDS: vancomycin HCL 1,250 MG in 0.9 % Sodium Chloride 250 ML 166.67 MG IV (22:38)
[2023-05-02 22:44] LABS: Glucose, Whole Blood 136 mg/dL (60-115)
[2023-05-02 23:20] VITALS: BP 111/54; PULSE 84; RESP 18; TEMP 36.4; O2SAT 96
[2023-05-03] MEDS: Thiamine HCL 200 MG in 0.9 % Sodium Chloride 100 ML 204 MG IV ×3 (01:14→17:38)
[2023-05-03] MEDS: Heparin Sodium,Porcine 5,000 UNIT/ML VIAL 5000 UNIT SUBCUT ×3 (01:14→17:00)
[2023-05-03 03:44] VITALS: BP 106/58; PULSE 59; RESP 18; TEMP 36.8; O2SAT 96
[2023-05-03 05:12] LABS: Glucose, Whole Blood 115 mg/dL (60-115)
[2023-05-03] MEDS: Midodrine HCl 5 MG TABLET 10 MG PO ×3 (05:27→16:54)
[2023-05-03] MEDS: Pantoprazole Sodium 40 MG/10 ML VIAL IVPUSH (05:28)
[2023-05-03 07:31] VITALS: BP 105/57; PULSE 66; RESP 20; TEMP 36.7; O2SAT 100
[2023-05-03] MEDS: Folic Acid 1 MG TABLET PO (08:02)
[2023-05-03] MEDS: Sertraline HCL 50 MG TABLET PO (08:02)
[2023-05-03] MEDS: rifAXIMin 550 MG TABLET PO (08:02)
[2023-05-03] MEDS: Multivitamin TABLET 1 TAB PO (08:02)
[2023-05-03] MEDS: 0.9 % Sodium Chloride Flush 3 ML SYRINGE IVFLUSH ×2 (08:03→15:38)
[2023-05-03] MEDS: Naltrexone HCl 50 MG TABLET PO (08:04)
[2023-05-03 09:23] LABS: Hematocrit 33.3 % (42.0-52.0); Hemoglobin 10.9 g/dl (14.0-18.0)
[2023-05-03 09:35] LABS: Anion Gap 16 (12-20); Blood Urea Nitrogen 22 mg/dL (9-16); Calcium 8.9 mg/dL (8.4-10.2); Carbon Dioxide 16 mmol/L (22-29); Chloride 113 mmol/L (96-108); Creatinine Clr Calc Pharmacy 61.1; Creatinine Clr Calc Pharmacy 64.3; Estimated Glomerular Filt Rate > 60; Glucose Random 123 mg/dL (60-115); Potassium 3.9 mmol/L (3.3-5.1); Sodium 141 mmol/L (135-145)
[2023-05-03 10:07] LABS: CDiff Gene PCR NEGATIVE (Negative)
[2023-05-03 11:08] LABS: Glucose, Whole Blood 103 mg/dL (60-115)
[2023-05-03 11:09] VITALS: BP 109/51; PULSE 65; RESP 20; TEMP 36.7; O2SAT 98
[2023-05-03 11:19] LABS: Adenovirus F 40/41 Not Detected (Not Detect.); Astrovirus Not Detected (Not Detect.); Campylobacter Not Detected (Not Detect.); Cryptosporidium Not Detected (Not Detect.); Cyclospora cayetanensis Not Detected (Not Detect.); E. coli EAEC Not Detected (Not Detect.); E. coli EPEC Not Detected (Not Detect.); E. coli ETEC Not Detected (Not Detect.); E. coli STEC Not Detected (Not Detect.); Entamoeba histolytica Not Detected (Not Detect.); Giardia lamblia Not Detected (Not Detect.); Norovirus GI/GII Not Detected (Not Detect.); Plesiomonas shigelloides Not Detected (Not Detect.); Rotavirus A Not Detected (Not Detect.); Salmonella Not Detected (Not Detect.); Sapovirus Not Detected (Not Detect.); Shigella sp./EIEC Not Detected (Not Detect.); Vibrio Not Detected (Not Detect.); Vibrio Cholerae Not Detected (Not Detect.); Yersinia enterocolitica Not Detected (Not Detect.)
--- NOTE | 2023-05-03 12:57 | P.PNUR_ITS ---
Subjective Subjective Date of Service: 05/03/23 Interval history: Andres Frye is a 67 years old man with past medical history significant for alcoholic liver cirrhosis/chronic liver disease, He takes lactulose for hepatic encephalopathy. chronic indwelling urinary catheter, GERD, orthostatic hypotension on midodrine and type 2 diabetes mellitus on insulin, staff noted increased confusion, he was brought to the emergency department from his nursing facility on 04/30/23 and admitted. Blood cultures no growth, urine culture greater than 100,000 colony mixed bacteria. I came to the bedside to change the patient's garcia catheter, however the pt is agitated and non-compliant Physical Exam 2 Vital Signs: Vital Signs: Last Vital Signs Temp 98.1 F 05/03/23 11:09 Pulse 65 05/03/23 11:09 Resp 20 05/03/23 11:09 BP 109/51 L 05/03/23 11:09 Pulse Ox 98 05/03/23 11:09 O2 Del Method Room Air 05/03/23 11:09 BMI result Body Mass Index 27.9 Urology Results Labs 05/03/23 09:09 05/03/23 09:09 Labs: Laboratory Results - last 24 hr 05/02/23 05/02/23 05/02/23 18:25 19:50 22:38 Hgb Hct Sodium Potassium Chloride Carbon Dioxide Anion Gap BUN Creatinine Estim Creat Clear Calc Estimated GFR POC Glucose 154 H 136 H Random Glucose Calcium Stl C. cayetanensis PCR Stool Rotavirus A PCR Stl Adenov F 40/41 PCR Stool Astrovirus (PCR) Stool Campylobacter PCR Stool Cryptosporidium PCR Stl Sh Tox Pr E STEC PCR Stool E coli O157 PCR Stl Enterotoxigenic E PCR Stool EPEC (PCR) Stool EAEC (PCR) Stl E. histolytica PCR Stool Giardia Lamblia PCR Stl P. shigelloides PCR Stool Salmonella PCR Stool Sapovirus (PCR) Stl Shigella/EIEC PCR St Y.enterocolitica PCR Stool Vibrio (PCR) Stl Vibrio cholerae PCR Stl Norovirus GI/GII PCR Random Vancomycin 14.8 L C. difficile Tox B Gene 05/03/23 05/03/23 05/03/23 05:05 08:58 09:09 Hgb 10.9 L D Hct 33.3 L D Sodium 141 Potassium 3.9 Chloride 113 H Carbon Dioxide 16 L Anion Gap 16 BUN 22 H Creatinine 1.20 Estim Creat Clear Calc Estimated GFR POC Glucose 115 Random Glucose Calcium Stl C. cayetanensis PCR Not Detected Stool Rotavirus A PCR Not Detected Stl Adenov F 40/ PCR Not Detected Stool Astrovirus (PCR) Not Detected Stool Campylobacter PCR Not Detected Stool Cryptosporidium PCR Not Detected Stl Sh Tox Pr E STEC PCR Not Detected Stool E coli O157 PCR Not applicable Stl Enterotoxigenic E PCR Not Detected Stool EPEC (PCR) Not Detected Stool EAEC (PCR) Not Detected Stl E. histolytica PCR Not Detected Stool Giardia Lamblia PCR Not Detected Stl P. shigelloides PCR Not Detected Stool Salmonella PCR Not Detected Stool Sapovirus (PCR) Not Detected Stl Shigella/EIEC PCR Not Detected St Y.enterocolitica PCR Not Detected Stool Vibrio (PCR) Not Detected Stl Vibrio cholerae PCR Not Detected Stl Norovirus GI/GII PCR Not Detected Random Vancomycin C. difficile Tox B Gene NEGATIVE 05/03/23 05/03/23 05/03/23 09:09 09:09 09:09 Hgb Hct Sodium Potassium Chloride Carbon Dioxide Anion Gap BUN Creatinine 1.14 Estim Creat Clear Calc 61.1 64.3 Estimated GFR > 60 > 60 POC Glucose Random Glucose 123 H Calcium 8.9 D Stl C. cayetanensis PCR Stool Rotavirus A PCR Stl Adenov F PCR Stool Astrovirus (PCR) Stool Campylobacter PCR Stool Cryptosporidium PCR Stl Sh Tox Pr E STEC PCR Stool E coli O157 PCR Stl Enterotoxigenic E PCR Stool EPEC (PCR) Stool EAEC (PCR) Stl E. histolytica PCR Stool Giardia Lamblia PCR Stl P. shigelloides PCR Stool Salmonella PCR Stool Sapovirus (PCR) Stl Shigella/EIEC PCR St Y.enterocolitica PCR Stool Vibrio (PCR) Stl Vibrio cholerae PCR Stl Norovirus GI/GII PCR Random Vancomycin C. difficile Tox B Gene 05/03/23 11:05 Hgb Hct Sodium Potassium Chloride Carbon Dioxide Anion Gap BUN Creatinine Estim Creat Clear Calc Estimated GFR POC Glucose 103 Random Glucose Calcium Stl C. cayetanensis PCR Stool Rotavirus A PCR Stl Adenov F 40/41 PCR Stool Astrovirus (PCR) Stool Campylobacter PCR Stool Cryptosporidium PCR Stl Sh Tox Pr E STEC PCR Stool E coli O157 PCR Stl Enterotoxigenic E PCR Stool EPEC (PCR) Stool EAEC (PCR) Stl E. histolytica PCR Stool Giardia Lamblia PCR Stl P. shigelloides PCR Stool Salmonella PCR Stool Sapovirus (PCR) Stl Shigella/EIEC PCR St Y.enterocolitica PCR Stool Vibrio (PCR) Stl Vibrio cholerae PCR Stl Norovirus GI/GII PCR Random Vancomycin C. difficile Tox B Gene Progress Note: A&P Assessment and plan (1) Chronic indwelling Garcia catheter: Status: Acute (2) Enlarged prostate: Status: Acute (3) Encephalopathy: Status: Acute (4) Bacteremia: Status: Acute Plan Bacteremia the patient is being followed by infectious disease Antibiotics per ID Chronic garcia to drainage unable to change catheter at this time as pt is agitated and combativie Time Spent With Patient Time: Total time managing care of this patient today ____ minutes. Progress Note: Quality Stroke Does the patient have a stroke diagnosis?: No
[2023-05-03 13:15] LABS: Platelet Count 197 X10*3/uL (160-400)
[2023-05-03] MEDS: QUEtiapine Fumarate 25 MG TABLET PO (13:53)
[2023-05-03 15:18] LABS: Ammonia 29 umol/L (13-55)
[2023-05-03] MEDS: Nystatin Powder 15 GM BOTTLE 1 APPL TOPICAL (15:35)
[2023-05-03 16:00] VITALS: BP 109/53; PULSE 70; RESP 18; TEMP 36.6; O2SAT 98
[2023-05-03] MEDS: Lactulose 20 GM/30 ML SOLUTION 30 GM PO (16:01)
--- NOTE | 2023-05-03 16:07 | HO.PM.IMPN ---
Subjective Subjective Date of Service: 05/03/23 Interval History: Toxic metabolic encephalopathy Review of Systems Mental status is somewhat improving this afternoon, more calm rosyhae Denies any new complaint of abdominal pain or shortness of breath chest pain, refused to change his urinary catheter was agitated this morning. Physical Exam Vital Signs: Vital Signs: Last Vital Signs Temp 98.1 F 05/03/23 11:09 Pulse 65 05/03/23 11:09 Resp 20 05/03/23 11:09 BP 109/51 L 05/03/23 11:09 Pulse Ox 98 05/03/23 11:09 O2 Del Method Room Air 05/03/23 11:09 BMI result Body Mass Index 27.9 Appearance: Alert.? Orientedx2 , somewhat confused ,intermittent agiatation.? cvs: [id number], [id number]. res: clear to auscultation ,no rhonchii or wheezing abd: no rebound or guarding ,nt, bs present,ascitis possible . ext pulses present , no cyanosis . neuro: axo2 , nonfocal Objective Data Active Medications Dextrose (Dextrose 50 % 25 Gm/50 Ml Syringe) 25 gm IVPUSH Q15M PRN; Protocol PRN Reason: per Hypoglycemia Standing Ord. Folic Acid (Folic Acid 1 Mg Tablet) 1 mg PO DAILY [facility] Last Admin: 05/03/23 08:02 Dose: 1 mg Documented By: LESLY Glucose (Glucose Gel 15 Gm Gel..Gram.) 15 gm PO Q15M PRN; Protocol PRN Reason: per Hypoglycemia Standing Ord. Heparin Sodium (Porcine) (Heparin Sodium,Porcine 5,000 Unit/Ml Vial) 5,000 unit SUBCUT Q8H [facility] Last Admin: 05/03/23 08:02 Dose: 5,000 unit Documented By: LESLY Thiamine HCl 200 mg/ Sodium (Chloride) 102 mls @ 204 mls/hr IV Q8H [facility] Last Infusion: 05/03/23 10:52 Dose: Infused Documented By: MAGGIE Ceftriaxone Sodium 2 gm/ (Sodium Chloride) 50 mls @ 100 mls/hr IV Q24H [facility] Last Infusion: 05/02/23 17:58 Dose: Infused Documented By: PEDRO Insulin Human Lispro (Insulin Lispro 100 Unit/Ml 3 Ml Vial) 0 unit SUBCUT Q6H [facility]; Protocol Last Admin: 05/03/23 11:58 Dose: Not Given Documented By: HEATH Non-Admin Reason: No Insulin Coverage Lactulose (Lactulose 20 Gm/30 Ml Solution) 30 gm PO TID [facility] Last Admin: 05/03/23 16:01 Dose: 30 gm Documented By: HEATH Midodrine (Midodrine Hcl 5 Mg Tablet) 10 mg PO TID@0600,1200,1800 [facility] Last Admin: 05/03/23 12:35 Dose: 10 mg Documented By: HEATH Multivitamins/Vitamin C (Multivitamin Tablet) 1 tab PO DAILY [facility] Last Admin: 05/03/23 08:02 Dose: 1 tab Documented By: LESLY Naltrexone HCl (Naltrexone Hcl 50 Mg Tablet) 50 mg PO DAILY [facility] Last Admin: 05/03/23 08:04 Dose: 50 mg Documented By: LESLY Nystatin (Nystatin Powder 15 Gm Bottle) 1 appl TOPICAL TID [facility]; Protocol Last Admin: 05/03/23 15:35 Dose: 1 appl Documented By: HEATH Pantoprazole Sodium (Pantoprazole Sodium 40 Mg/10 Ml Vial) 40 mg IVPUSH DAILY@0630 [facility] Last Admin: 05/03/23 05:28 Dose: 40 mg Documented By: HIPOLITO Rifaximin (Rifaximin 550 Mg Tablet) 550 mg PO BID [facility] Last Admin: 05/03/23 08:02 Dose: 550 mg Documented By: LESLY Sertraline HCl (Sertraline Hcl 50 Mg Tablet) 50 mg PO DAILY [facility] Last Admin: 05/03/23 08:02 Dose: 50 mg Documented By: LESLY Sodium Chloride (0.9 % Sodium Chloride Flush 3 Ml Syringe) 3 ml IVFLUSH QSHIFT [facility] Last Admin: 05/03/23 15:38 Dose: 3 ml Documented By: HEATH Labs 05/03/23 09:09 05/03/23 09:09 Labs: Laboratory Results - last 24 hr 05/02/23 05/02/23 05/02/23 18:25 19:50 22:38 Plt Count Anion Gap Estim Creat Clear Calc Estimated GFR POC Glucose 154 H 136 H Random Glucose Calcium Ammonia Stl C. cayetanensis PCR Stool Rotavirus A PCR Stl Adenov F 40/ PCR Stool Astrovirus (PCR) Stool Campylobacter PCR Stool Cryptosporidium PCR Stl Sh Tox Pr E STEC PCR Stool E coli O157 PCR Stl Enterotoxigenic E PCR Stool EPEC (PCR) Stool EAEC (PCR) Stl E. histolytica PCR Stool Giardia Lamblia PCR Stl P. shigelloides PCR Stool Salmonella PCR Stool Sapovirus (PCR) Stl Shigella/EIEC PCR St Y.enterocolitica PCR Stool Vibrio (PCR) Stl Vibrio cholerae PCR Stl Norovirus GI/GII PCR Random Vancomycin 14.8 L C. difficile Tox B Gene 05/03/23 05/03/23 05/03/23 05:05 08:58 09:09 Plt Count 197 Anion Gap 16 Estim Creat Clear Calc 61.1 Estimated GFR POC Glucose 115 Random Glucose Calcium Ammonia Stl C. cayetanensis PCR Not Detected Stool Rotavirus A PCR Not Detected Stl Adenov F PCR Not Detected Stool Astrovirus (PCR) Not Detected Stool Campylobacter PCR Not Detected Stool Cryptosporidium PCR Not Detected Stl Sh Tox Pr E STEC PCR Not Detected Stool E coli O157 PCR Not applicable Stl Enterotoxigenic E PCR Not Detected Stool EPEC (PCR) Not Detected Stool EAEC (PCR) Not Detected Stl E. histolytica PCR Not Detected Stool Giardia Lamblia PCR Not Detected Stl P. shigelloides PCR Not Detected Stool Salmonella PCR Not Detected Stool Sapovirus (PCR) Not Detected Stl Shigella/EIEC PCR Not Detected St Y.enterocolitica PCR Not Detected Stool Vibrio (PCR) Not Detected Stl Vibrio cholerae PCR Not Detected Stl Norovirus GI/GII PCR Not Detected Random Vancomycin C. difficile Tox B Gene NEGATIVE 05/03/23 05/03/23 05/03/23 09:09 09:09 11:05 Plt Count Anion Gap Estim Creat Clear Calc 64.3 Estimated GFR > 60 > 60 POC Glucose 103 Random Glucose 123 H Calcium 8.9 D Ammonia Stl C. cayetanensis PCR Stool Rotavirus A PCR Stl Adenov F / PCR Stool Astrovirus (PCR) Stool Campylobacter PCR Stool Cryptosporidium PCR Stl Sh Tox Pr E STEC PCR Stool E coli O157 PCR Stl Enterotoxigenic E PCR Stool EPEC (PCR) Stool EAEC (PCR) Stl E. histolytica PCR Stool Giardia Lamblia PCR Stl P. shigelloides PCR Stool Salmonella PCR Stool Sapovirus (PCR) Stl Shigella/EIEC PCR St Y.enterocolitica PCR Stool Vibrio (PCR) Stl Vibrio cholerae PCR Stl Norovirus GI/GII PCR Random Vancomycin C. difficile Tox B Gene 05/03/23 15:05 Plt Count Anion Gap Estim Creat Clear Calc Estimated GFR POC Glucose Random Glucose Calcium Ammonia 29 Stl C. cayetanensis PCR Stool Rotavirus A PCR Stl Adenov F 40/41 PCR Stool Astrovirus (PCR) Stool Campylobacter PCR Stool Cryptosporidium PCR Stl Sh Tox Pr E STEC PCR Stool E coli O157 PCR Stl Enterotoxigenic E PCR Stool EPEC (PCR) Stool EAEC (PCR) Stl E. histolytica PCR Stool Giardia Lamblia PCR Stl P. shigelloides PCR Stool Salmonella PCR Stool Sapovirus (PCR) Stl Shigella/EIEC PCR St Y.enterocolitica PCR Stool Vibrio (PCR) Stl Vibrio cholerae PCR Stl Norovirus GI/GII PCR Random Vancomycin C. difficile Tox B Gene Microbiology Microbiology Results: Microbiology 05/01/23 14:49 Gram Stain - Final Abdominal Fluid Routine Culture - Final No growth after 2 days Anaerobic Culture - Preliminary No growth to date. 04/30/23 17:27 Blood Culture - Preliminary Blood - Venous No growth after 48 hours. 04/30/23 17:30 Blood Culture - Preliminary Blood - Venous No growth after 48 hours. Assessment and Plan (1) Chronic indwelling Gordon catheter: Status: Acute (2) 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: Status: Acute Plan 67 years old man admitted with: Possible Bacteremia secondary to Gram-negative bacilli/catheter-associated UTI + Gram-positive cocci( as per ed documentation -[facility] in [facility]): Two SIRS criteria: Leukocytosis and suspected infection + severe sepsis criteria: leucocytosis seems improved, no fevers acute lactic acidosis seems resolved. shelter sent labs-growing Proteus in urine and ablood. urine cultures -mixed and blood cultures negative @24hrs plan: continue vanco and zosyn intiated on 04/30, monitor vanco trough, renal function and electrolytes Infectious disease evaluation, urology evaluation-Exchange indwelling urinary catheter (urology will change catheter ) Encephalopathy likely multifactorial:(possible toxic metabolic) Mild hepatic encephalopathy, acute illness, medication. Aspiration precautions started lactulose and rifixamin due to diarrhae Hold melatonin and gabapentin. s/p paracentesis -less likely sbp stool studies-cdiff ,Gi Panel -negative. Acute kidney injury likely multifactorial: Sepsis/bacteremia, ? hepatorenal syndrome. Continue IV fluids. Continue to monitor renal function. Avoid nephrotoxic agents. seems improved significantly ,off fluids GERD. PPI IV. Orthostatic hypotension. Continue midodrine 10 mg p.o. t.i.d. Type 2 diabetes mellitus. Blood glucose monitoring every 6 hours while NPO. Blood glucose control with insulin sliding scale for now. hold coverage below 200 mg/dl. DVT prophylaxis: Heparin subcut. GI prophylaxis: Protonix Patient will need hospitalization for at least 48-72 hrs for bacteremia secondary to catheter associated UTI treatment with IV antibiotics and IV fluids, renal function electrolyte monitoring as well as mental status monitoring. Quality Stroke Does the patient have a stroke diagnosis?: No VTE Prior VTE?: No VTE Risk Level:: Medical - moderate - high VTE Device Contraindication: N/A - Device Ordered VTE Drug Contraindication: N/A - Med Ordered
--- NOTE | 2023-05-03 16:11 | P.PNGI_ITS ---
Subjective Subjective Date of Service: 05/03/23 Interval History: Pt seen and examined at bedside. Continues to be confused, has incoherent train of thought. Labs reviewed - high total protein in ascitic fluid, i.e less likely to be from cirrhosis, however fluid albumin not available to calculate SAAG. Critical Care Time (minutes): 0 Physical Exam 2 Vital Signs: Vital Signs: Last Vital Signs Temp 98.1 F 05/03/23 11:09 Pulse 65 05/03/23 11:09 Resp 20 05/03/23 11:09 BP 109/51 L 05/03/23 11:09 Pulse Ox 98 05/03/23 11:09 O2 Del Method Room Air 05/03/23 11:09 BMI result Body Mass Index 27.9 Appears older than stated age Disheveled No asterixis Objective Data Labs 05/03/23 09:09 05/03/23 09:09 Labs: Laboratory Results - last 24 hr 05/02/23 05/02/23 05/02/23 18:25 19:50 22:38 Hgb Hct Plt Count Sodium Potassium Chloride Carbon Dioxide Anion Gap BUN Creatinine Estim Creat Clear Calc Estimated GFR POC Glucose 154 H 136 H Random Glucose Calcium Ammonia Stl C. cayetanensis PCR Stool Rotavirus A PCR Stl Adenov F 40/ PCR Stool Astrovirus (PCR) Stool Campylobacter PCR Stool Cryptosporidium PCR Stl Sh Tox Pr E STEC PCR Stool E coli O157 PCR Stl Enterotoxigenic E PCR Stool EPEC (PCR) Stool EAEC (PCR) Stl E. histolytica PCR Stool Giardia Lamblia PCR Stl P. shigelloides PCR Stool Salmonella PCR Stool Sapovirus (PCR) Stl Shigella/EIEC PCR St Y.enterocolitica PCR Stool Vibrio (PCR) Stl Vibrio cholerae PCR Stl Norovirus GI/GII PCR Random Vancomycin 14.8 L C. difficile Tox B Gene 05/03/23 05/03/23 05/03/23 05:05 08:58 09:09 Hgb 10.9 L D Hct 33.3 L D Plt Count 197 Sodium 141 Potassium 3.9 Chloride 113 H Carbon Dioxide 16 L Anion Gap 16 BUN 22 H Creatinine 1.20 Estim Creat Clear Calc Estimated GFR POC Glucose 115 Random Glucose Calcium Ammonia Stl C. cayetanensis PCR Not Detected Stool Rotavirus A PCR Not Detected Stl Adenov F 40/41 PCR Not Detected Stool Astrovirus (PCR) Not Detected Stool Campylobacter PCR Not Detected Stool Cryptosporidium PCR Not Detected Stl Sh Tox Pr E STEC PCR Not Detected Stool E coli O157 PCR Not applicable Stl Enterotoxigenic E PCR Not Detected Stool EPEC (PCR) Not Detected Stool EAEC (PCR) Not Detected Stl E. histolytica PCR Not Detected Stool Giardia Lamblia PCR Not Detected Stl P. shigelloides PCR Not Detected Stool Salmonella PCR Not Detected Stool Sapovirus (PCR) Not Detected Stl Shigella/EIEC PCR Not Detected St Y.enterocolitica PCR Not Detected Stool Vibrio (PCR) Not Detected Stl Vibrio cholerae PCR Not Detected Stl Norovirus GI/GII PCR Not Detected Random Vancomycin C. difficile Tox B Gene NEGATIVE 05/03/23 05/03/23 05/03/23 09:09 09:09 09:09 Hgb Hct Plt Count Sodium Potassium Chloride Carbon Dioxide Anion Gap BUN Creatinine 1.14 Estim Creat Clear Calc 61.1 64.3 Estimated GFR > 60 > 60 POC Glucose Random Glucose 123 H Calcium 8.9 D Ammonia Stl C. cayetanensis PCR Stool Rotavirus A PCR Stl Adenov F PCR Stool Astrovirus (PCR) Stool Campylobacter PCR Stool Cryptosporidium PCR Stl Sh Tox Pr E STEC PCR Stool E coli O157 PCR Stl Enterotoxigenic E PCR Stool EPEC (PCR) Stool EAEC (PCR) Stl E. histolytica PCR Stool Giardia Lamblia PCR Stl P. shigelloides PCR Stool Salmonella PCR Stool Sapovirus (PCR) Stl Shigella/EIEC PCR St Y.enterocolitica PCR Stool Vibrio (PCR) Stl Vibrio cholerae PCR Stl Norovirus GI/GII PCR Random Vancomycin C. difficile Tox B Gene 05/03/23 05/03/23 11:05 15:05 Hgb Hct Plt Count Sodium Potassium Chloride Carbon Dioxide Anion Gap BUN Creatinine Estim Creat Clear Calc Estimated GFR POC Glucose 103 Random Glucose Calcium Ammonia 29 Stl C. cayetanensis PCR Stool Rotavirus A PCR Stl Adenov F PCR Stool Astrovirus (PCR) Stool Campylobacter PCR Stool Cryptosporidium PCR Stl Sh Tox Pr E STEC PCR Stool E coli O157 PCR Stl Enterotoxigenic E PCR Stool EPEC (PCR) Stool EAEC (PCR) Stl E. histolytica PCR Stool Giardia Lamblia PCR Stl P. shigelloides PCR Stool Salmonella PCR Stool Sapovirus (PCR) Stl Shigella/EIEC PCR St Y.enterocolitica PCR Stool Vibrio (PCR) Stl Vibrio cholerae PCR Stl Norovirus GI/GII PCR Random Vancomycin C. difficile Tox B Gene Microbiology Microbiology Results: Microbiology 05/01/23 14:49 Abdominal Fluid Gram Stain - Final 05/01/23 14:49 Abdominal Fluid Routine Culture - Final No growth after 2 days 05/01/23 14:49 Abdominal Fluid Anaerobic Culture - Preliminary No growth to date. 04/30/23 17:27 Blood - Venous Blood Culture - Preliminary No growth after 48 hours. 04/30/23 17:30 Blood - Venous Blood Culture - Preliminary No growth after 48 hours. 04/30/23 18:55 Urine Catheterized - Gordon Catheter Urine Culture - Final Procedures Date of Service Date of Service: 05/03/23 Progress Note: A&P Assessment and plan (1) Chronic liver disease: Status: Acute (2) Acute on chronic anemia: Status: Acute (3) Encephalopathy: Status: Acute (4) Acute kidney injury: Status: Acute (5) Catheter-associated urinary tract infection: Status: Acute Plan # Encephalopathy improving - does not appear to be hepatic based on physical exam. Agree with holding lactulose if having diarrhea. # Ascites - SAAG unavailable. Called lab to add on fluid albumin - orders will be sent to [facility] lab who have the sample for cytology. If SAAG > 1.1 will recommend an echo. Otherwise if low SAAG ascites, peritoneal carcinomatosis and tuberculous ascites remain on differential. Cytology pending. Pancreatic ascites less likely with low total WBC count. # PENNY - improving. Likely pre-renal. Can DC albumin. Time Spent With Patient Time: Total time managing care of this patient today ____ minutes. Quality Stroke Does the patient have a stroke diagnosis?: No VTE Prior VTE?: No VTE Risk Level:: Medical - moderate - high VTE Device Contraindication: N/A - Device Ordered VTE Drug Contraindication: N/A - Med Ordered
[2023-05-03] MEDS: cefTRIAXone sodium 2 GM in 0.9 % Sodium Chloride 50 ML IV (17:00)
[2023-05-03 18:39] LABS: Glucose, Whole Blood 175 mg/dL (60-115)
[2023-05-03 19:48] VITALS: BP 108/58; PULSE 67; RESP 16; TEMP 37; O2SAT 92
[2023-05-03 20:19] LABS: Glucose, Whole Blood 128 mg/dL (60-115)
[2023-05-03 23:38] LABS: Glucose, Whole Blood 126 mg/dL (60-115)
[2023-05-03 23:39] VITALS: BP 112/65; PULSE 68; RESP 18; TEMP 37.1
[2023-05-04] VITALS (7 sets, daily range): BP systolic 89–128; BP diastolic 42–64; PULSE 65–89; RESP 16–20; TEMP 36.1–36.6; O2SAT 94–99
[2023-05-04] MEDS: Thiamine HCL 200 MG in 0.9 % Sodium Chloride 100 ML 204 MG IV ×3 (01:40→21:59)
[2023-05-04 06:07] LABS: Glucose, Whole Blood 116 mg/dL (60-115)
[2023-05-04] MEDS: Pantoprazole Sodium 40 MG/10 ML VIAL IVPUSH (06:30)
[2023-05-04] MEDS: Sertraline HCL 50 MG TABLET PO (09:12)
[2023-05-04] MEDS: Folic Acid 1 MG TABLET PO (09:12)
[2023-05-04] MEDS: Lactulose 20 GM/30 ML SOLUTION 30 GM PO ×3 (09:12→21:19)
[2023-05-04] MEDS: Multivitamin TABLET 1 TAB PO (09:12)
[2023-05-04] MEDS: Naltrexone HCl 50 MG TABLET PO (09:12)
[2023-05-04] MEDS: Heparin Sodium,Porcine 5,000 UNIT/ML VIAL 5000 UNIT SUBCUT ×2 (09:12→18:10)
[2023-05-04] MEDS: rifAXIMin 550 MG TABLET PO ×2 (09:12→21:19)
[2023-05-04] MEDS: 0.9 % Sodium Chloride Flush 3 ML SYRINGE IVFLUSH ×3 (09:13→21:21)
[2023-05-04] MEDS: Nystatin Powder 15 GM BOTTLE 1 APPL TOPICAL ×3 (09:26→21:21)
[2023-05-04 10:55] LABS: Glucose, Whole Blood 116 mg/dL (60-115)
[2023-05-04] MEDS: Midodrine HCl 5 MG TABLET 10 MG PO ×2 (13:41→21:34)
--- NOTE | 2023-05-04 14:56 | HO.PM.IMPN ---
Subjective Subjective Date of Service: 05/04/23 Interval History: Toxic metabolic encephalopathy Review of Systems Mental status somewhat improving, seems more calmer today Denies any abd pain or fevers Physical Exam Vital Signs: Vital Signs: Last Vital Signs Temp 97.0 F 05/04/23 11:18 Pulse 67 05/04/23 11:18 Resp 20 05/04/23 11:18 BP 102/51 L 05/04/23 11:18 Pulse Ox 99 05/04/23 11:18 O2 Del Method Room Air 05/04/23 11:18 BMI result Body Mass Index 27.9 Appearance: Alert.? Orientedx2 , more awake and comfortable.? cvs: [id number], [id number]. res: clear to auscultation ,no rhonchii or wheezing abd: no rebound or guarding ,nt, bs present,ascitis possible . ext pulses present , no cyanosis . neuro: axo2 , nonfocal Objective Data Active Medications Dextrose (Dextrose 50 % 25 Gm/50 Ml Syringe) 25 gm IVPUSH Q15M PRN; Protocol PRN Reason: per Hypoglycemia Standing Ord. Folic Acid (Folic Acid 1 Mg Tablet) 1 mg PO DAILY [facility] Last Admin: 05/04/23 09:12 Dose: 1 mg Documented By: MELECIO Glucose (Glucose Gel 15 Gm Gel..Gram.) 15 gm PO Q15M PRN; Protocol PRN Reason: per Hypoglycemia Standing Ord. Heparin Sodium (Porcine) (Heparin Sodium,Porcine 5,000 Unit/Ml Vial) 5,000 unit SUBCUT Q8H [facility] Last Admin: 05/04/23 09:12 Dose: 5,000 unit Documented By: MELECIO Thiamine HCl 200 mg/ Sodium (Chloride) 102 mls @ 204 mls/hr IV Q8H [facility] Last Admin: 05/04/23 12:57 Dose: 204 mls/hr Documented By: MELECIO Ceftriaxone Sodium 2 gm/ (Sodium Chloride) 50 mls @ 100 mls/hr IV Q24H [facility] Last Infusion: 05/03/23 17:30 Dose: Infused Documented By: HEATH Insulin Human Lispro (Insulin Lispro 100 Unit/Ml 3 Ml Vial) 0 unit SUBCUT Q6H [facility]; Protocol Last Admin: 05/04/23 13:44 Dose: Not Given Documented By: MELECIO Non-Admin Reason: No Insulin Coverage Lactulose (Lactulose 20 Gm/30 Ml Solution) 30 gm PO TID [facility] Last Admin: 05/04/23 09:12 Dose: 30 gm Documented By: MELECIO Midodrine (Midodrine Hcl 5 Mg Tablet) 10 mg PO TID@0600,1200,1800 [facility] Last Admin: 05/04/23 13:41 Dose: 10 mg Documented By: MELECIO Multivitamins/Vitamin C (Multivitamin Tablet) 1 tab PO DAILY [facility] Last Admin: 05/04/23 09:12 Dose: 1 tab Documented By: MELECIO Naltrexone HCl (Naltrexone Hcl 50 Mg Tablet) 50 mg PO DAILY [facility] Last Admin: 05/04/23 09:12 Dose: 50 mg Documented By: MELECIO Nystatin (Nystatin Powder 15 Gm Bottle) 1 appl TOPICAL TID [facility]; Protocol Last Admin: 05/04/23 09:26 Dose: 1 appl Documented By: MELECIO Pantoprazole Sodium (Pantoprazole Sodium 40 Mg/10 Ml Vial) 40 mg IVPUSH DAILY@0630 [facility] Last Admin: 05/04/23 06:30 Dose: 40 mg Documented By: MAYCO Rifaximin (Rifaximin 550 Mg Tablet) 550 mg PO BID [facility] Last Admin: 05/04/23 09:12 Dose: 550 mg Documented By: MELECIO Sertraline HCl (Sertraline Hcl 50 Mg Tablet) 50 mg PO DAILY [facility] Last Admin: 05/04/23 09:12 Dose: 50 mg Documented By: MELECIO Sodium Chloride (0.9 % Sodium Chloride Flush 3 Ml Syringe) 3 ml IVFLUSH QSHIFT [facility] Last Admin: 05/04/23 09:13 Dose: 3 ml Documented By: MELECIO Labs 05/03/23 09:09 05/03/23 09:09 Labs: Laboratory Results - last 24 hr 05/03/23 05/03/23 05/03/23 15:05 18:35 20:15 POC Glucose 175 H 128 H Ammonia 29 05/03/23 05/04/23 05/04/23 23:34 06:03 10:51 POC Glucose 126 H 116 H 116 H Ammonia Microbiology Microbiology Results: Microbiology 05/01/23 14:49 Gram Stain - Final Abdominal Fluid Routine Culture - Final No growth after 2 days Anaerobic Culture - Preliminary No growth to date. Assessment and Plan (1) Chronic indwelling Gordon catheter: Status: Acute (2) 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: Status: Acute Plan 67 years old man admitted with: Possible Bacteremia secondary to Gram-negative bacilli/catheter-associated UTI + Gram-positive cocci( as per ed documentation -[facility] Two SIRS criteria: Leukocytosis and suspected infection + severe sepsis criteria: leucocytosis seems improved, no fevers acute lactic acidosis seems resolved. [facility] sent labs-growing Proteus in urine and ablood. urine cultures -mixed and blood cultures negative @24hrs plan: continue ceftriaxone 05/01, monitor vanco trough, renal function and electrolytes Infectious disease evaluation, urology evaluation-Exchange indwelling urinary catheter (urology will change catheter ) on moday ,patient did not cooperate to change it yesterday. Encephalopathy likely multifactorial:(possible toxic metabolic) Mild hepatic encephalopathy, acute illness, medication. Aspiration precautions started lactulose and rifixamin due to diarrhae Hold melatonin and gabapentin. s/p paracentesis -less likely sbp stool studies-cdiff ,Gi Panel -negative. Acute kidney injury likely multifactorial: Sepsis/bacteremia, ? hepatorenal syndrome. Continue IV fluids. Continue to monitor renal function. Avoid nephrotoxic agents. seems improved significantly ,off fluids GERD. PPI IV. Orthostatic hypotension. Continue midodrine 10 mg p.o. t.i.d. Type 2 diabetes mellitus. Blood glucose monitoring every 6 hours while NPO. Blood glucose control with insulin sliding scale for now. hold coverage below 200 mg/dl. DVT prophylaxis: Heparin subcut. GI prophylaxis: Protonix Patient will need hospitalization for at least 48-72 hrs for bacteremia secondary to catheter associated UTI treatment with IV antibiotics and IV fluids, renal function electrolyte monitoring as well as mental status monitoring. Quality Stroke Does the patient have a stroke diagnosis?: No VTE Prior VTE?: No VTE Risk Level:: Medical - moderate - high VTE Device Contraindication: N/A - Device Ordered VTE Drug Contraindication: N/A - Med Ordered
[2023-05-04 17:19] LABS: Glucose, Whole Blood 125 mg/dL (60-115)
[2023-05-04] MEDS: cefTRIAXone sodium 2 GM in 0.9 % Sodium Chloride 50 ML IV (18:10)
[2023-05-04 22:47] LABS: Glucose, Whole Blood 135 mg/dL (60-115)
[2023-05-05 03:23] VITALS: BP 118/58; PULSE 70; RESP 16; TEMP 36.4; O2SAT 100
--- NOTE | 2023-05-05 06:32 | PC.NURSE ---
Addendum entered by Sanjana Mcdonald RN 05/05/23 06:34: overnight. F/C in place. Pt's IV noted to be not in patient at midnight. Unable to visualize any veins for new iv. ED RENARD Hummel to bedside at 0100 to insert US guided IV. Pt. at this time, belligerent, refusing to have an IV put in. Pt. incontinent of stool at 0630 and refusing to be touched or changed. Oncoming shift notified. Original Note: Pt. alert and oriented to self only all shift. Last evening 05/04/23-05/05/23 1900 to midnight pt. cooperative with care. Inc of stool x4 total overnihgt
[2023-05-05 07:00] LABS: Glucose, Whole Blood 101 mg/dL (60-115)
--- NOTE | 2023-05-05 07:29 | PC.NURSE ---
Pt. remains confused, argumentative and resistant to care but able to change pt. and reapplied awake overnight monitor. Bed alarm in use and Camera in room.
[2023-05-05 08:00] VITALS: BP 108/60; PULSE 72; RESP 18; TEMP 37; O2SAT 100
[2023-05-05] MEDS: Folic Acid 1 MG TABLET PO (10:10)
[2023-05-05] MEDS: Sertraline HCL 50 MG TABLET PO (10:10)
[2023-05-05] MEDS: Multivitamin TABLET 1 TAB PO (10:10)
[2023-05-05] MEDS: Pantoprazole Sodium 40 MG/10 ML VIAL IVPUSH (10:52)
[2023-05-05] MEDS: Naltrexone HCl 50 MG TABLET PO (10:57)
[2023-05-05] MEDS: Midodrine HCl 5 MG TABLET 10 MG PO (10:57)
[2023-05-05] MEDS: rifAXIMin 550 MG TABLET PO (10:57)
[2023-05-05] MEDS: Nystatin Powder 15 GM BOTTLE 1 APPL TOPICAL ×2 (11:35→17:41)
[2023-05-05] MEDS: Lactulose 20 GM/30 ML SOLUTION 30 GM PO ×2 (11:35→17:36)
[2023-05-05] MEDS: Heparin Sodium,Porcine 5,000 UNIT/ML VIAL 5000 UNIT SUBCUT ×2 (11:38→17:36)
[2023-05-05] MEDS: Thiamine HCL 200 MG in 0.9 % Sodium Chloride 100 ML 201 MG IV ×2 (11:38→18:39)
--- NOTE | 2023-05-05 11:42 | P.PNIM_ITS ---
Subjective Subjective Date of Service: 05/05/23 Interval History: toxic metabolic encephalopathy,proteus uti/bacteremia Review of Systems mental status seems similar no fever had 3 bms Physical Exam 2 Vital Signs: Vital Signs: Last Vital Signs Temp 98.6 F 05/05/23 08:00 Pulse 72 05/05/23 08:00 Resp 18 05/05/23 08:00 BP 108/60 05/05/23 08:00 Pulse Ox 100 05/05/23 08:00 O2 Del Method Room Air 05/05/23 08:00 BMI result Body Mass Index 27.9 Appearance: Alert.? Orientedx2 , more awake and comfortable.? cvs: rrr, [id number]. res: clear to auscultation ,no rhonchii or wheezing abd: no rebound or guarding ,nt, bs present,ascitis possible . ext pulses present , no cyanosis . neuro: axo2 , nonfocal Objective Data Active Medications Dextrose (Dextrose 50 % 25 Gm/50 Ml Syringe) 25 gm IVPUSH Q15M PRN; Protocol PRN Reason: per Hypoglycemia Standing Ord. Folic Acid (Folic Acid 1 Mg Tablet) 1 mg PO DAILY [facility] TO [facility] Last Admin: 05/05/23 10:10 Dose: 1 mg Documented By: MELECIO Glucose (Glucose Gel 15 Gm Gel..Gram.) 15 gm PO Q15M PRN; Protocol PRN Reason: per Hypoglycemia Standing Ord. Heparin Sodium (Porcine) (Heparin Sodium,Porcine 5,000 Unit/Ml Vial) 5,000 unit SUBCUT Q8H [facility] Last Admin: 05/05/23 01:39 Dose: Not Given Documented By: MAYCO Non-Admin Reason: pt. refused Thiamine HCl 200 mg/ Sodium (Chloride) 102 mls @ 204 mls/hr IV Q8H [facility] Last Admin: 05/05/23 03:58 Dose: Not Given Documented By: MAYCO Non-Admin Reason: No Access Ceftriaxone Sodium 2 gm/ (Sodium Chloride) 50 mls @ 100 mls/hr IV Q24H [facility] Last Infusion: 05/04/23 18:40 Dose: Infused Documented By: MAYCO Insulin Human Lispro (Insulin Lispro 100 Unit/Ml 3 Ml Vial) 0 unit SUBCUT Q6H [facility]; Protocol Last Admin: 05/05/23 07:18 Dose: Not Given Documented By: MELECIO Non-Admin Reason: No Insulin Coverage Lactulose (Lactulose 20 Gm/30 Ml Solution) 30 gm PO TID [facility] Last Admin: 05/04/23 21:19 Dose: 30 gm Documented By: MAYCO Lidocaine (Lidocaine 4 % Patch Adh..Patch) 1 patch TRANSDERMA DAILY [facility]; Protocol Last Admin: 05/05/23 11:02 Dose: Not Given Documented By: MELECIO Non-Admin Reason: Patient Refused Midodrine (Midodrine Hcl 5 Mg Tablet) 10 mg PO TID@0600,1200,1800 [facility] Last Admin: 05/05/23 10:57 Dose: 10 mg Documented By: MELECIO Multivitamins/Vitamin C (Multivitamin Tablet) 1 tab PO DAILY [facility] Last Admin: 05/05/23 10:10 Dose: 1 tab Documented By: MELECIO Naltrexone HCl (Naltrexone Hcl 50 Mg Tablet) 50 mg PO DAILY [facility] Last Admin: 05/05/23 10:57 Dose: 50 mg Documented By: MELECIO Nystatin (Nystatin Powder 15 Gm Bottle) 1 appl TOPICAL TID [facility]; Protocol Last Admin: 05/04/23 21:21 Dose: 1 appl Documented By: MAYCO Nystatin (Nystatin Cream 15 Gm Tube) 1 appl TOPICAL BID [facility]; Protocol Pantoprazole Sodium (Pantoprazole Sodium 40 Mg/10 Ml Vial) 40 mg IVPUSH DAILY@0630 [facility] Last Admin: 05/05/23 10:52 Dose: 40 mg Documented By: MELECIO Rifaximin (Rifaximin 550 Mg Tablet) 550 mg PO BID [facility] Last Admin: 05/05/23 10:57 Dose: 550 mg Documented By: MELECIO Sertraline HCl (Sertraline Hcl 50 Mg Tablet) 50 mg PO DAILY [facility] Last Admin: 05/05/23 10:10 Dose: 50 mg Documented By: MELECIO Sodium Chloride (0.9 % Sodium Chloride Flush 3 Ml Syringe) 3 ml IVFLUSH QSHIFT [facility] Last Admin: 05/05/23 11:23 Dose: Not Given Documented By: MELECIO Non-Admin Reason: No Access Labs 05/03/23 09:09 05/03/23 09:09 Labs: Laboratory Results - last 24 hr 0205/04/23 05/05/23 17:12 22:41 05:06 POC Glucose 125 H 135 H 101 Microbiology Microbiology Results: Microbiology 05/01/23 14:49 Gram Stain - Final Abdominal Fluid Routine Culture - Final No growth after 2 days Anaerobic Culture - Preliminary No growth to date. Assessment and Plan (1) Chronic indwelling Gordon catheter: Status: Acute (2) 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: Status: Acute Plan 67 years old man admitted with: sepsis and Possible Bacteremia secondary to Gram-negative bacilli/catheter- associated UTI + Gram-positive cocci( as per ed documentation -detention sent labs-growing Proteus in urine and blood) acute lactic acidosis seems resolved. sepsis resolved. ED (here in [facility])-urine cultures -mixed and blood cultures negative @24hrs plan: Infectious disease evaluation, urology evaluation-Exchange indwelling urinary catheter (urology will change catheter ) on [place] ,patient did not cooperate to change earlier ,continue ceftriaxone 05/01. follow blood cultures and urine culture final results .abd fluid cultures negative also sofar. Encephalopathy likely multifactorial:(possible toxic metabolic) Mild hepatic encephalopathy, acute illness, medication. Aspiration precautions Hold melatonin and gabapentin. s/p paracentesis -less likely sbp,ascitis cultures negative also sofar. stool studies-cdiff ,Gi Panel -negative. plan : goal around 3 bm/day continue lactulose and rifixamin due to diarrhae Acute kidney injury likely multifactorial: Sepsis/bacteremia, ? hepatorenal syndrome. seems improved significantly ,off fluids, Avoid nephrotoxic agents. GERD. PPI IV. Orthostatic hypotension. Continue midodrine 10 mg p.o. t.i.d. Type 2 diabetes mellitus. Blood glucose monitoring every 6 hours while NPO. Blood glucose control with insulin sliding scale for now. hold coverage below 200 mg/dl. DVT prophylaxis: Heparin subcut. GI prophylaxis: Protonix ongoing hospitalization need for at least 48-72 hrs for protues bacteremia ,toxic metabolic encephalopathy secondary to catheter associated UTI treatment with IV antibiotics and IV fluids, renal function electrolyte monitoring as well as mental status monitoring. Quality Stroke Does the patient have a stroke diagnosis?: No VTE Prior VTE?: No VTE Risk Level:: Medical - moderate - high VTE Device Contraindication: N/A - Device Ordered VTE Drug Contraindication: N/A - Med Ordered
[2023-05-05 11:53] VITALS: BP 116/55; PULSE 79; RESP 16; TEMP 36.8; O2SAT 79
[2023-05-05 12:02] LABS: Glucose, Whole Blood 178 mg/dL (60-115)
[2023-05-05] MEDS: Insulin Lispro 100 UNIT/ML 3 ML VIAL SUBCUT ×2 (14:24→17:36)
[2023-05-05 16:00] VITALS: BP 94/54; PULSE 82; RESP 22; TEMP 36.8; O2SAT 98
[2023-05-05 16:46] LABS: Glucose, Whole Blood 169 mg/dL (60-115)
[2023-05-05] MEDS: Acetaminophen 325 MG TABLET 975 MG PO (17:37)
[2023-05-05] MEDS: cefTRIAXone sodium 2 GM in 0.9 % Sodium Chloride 50 ML IV (17:37)
[2023-05-05] MEDS: 0.9 % Sodium Chloride Flush 3 ML SYRINGE IVFLUSH ×2 (17:37→21:05)
[2023-05-05 20:00] VITALS: BP 105/68; PULSE 92; RESP 18; TEMP 36.8; O2SAT 100
[2023-05-05 23:35] LABS: Glucose, Whole Blood 158 mg/dL (60-115)
[2023-05-06] MEDS: Thiamine HCL 200 MG in 0.9 % Sodium Chloride 100 ML 204 MG IV ×2 (02:27→10:29)
[2023-05-06] MEDS: Pantoprazole Sodium 40 MG/10 ML VIAL IVPUSH (05:34)
[2023-05-06 06:10] LABS: Glucose, Whole Blood 133 mg/dL (60-115)
[2023-05-06 07:16] LABS: Hematocrit 32.2 % (42.0-52.0); Hemoglobin 10.7 g/dl (14.0-18.0); Mean Corpuscular HGB Conc 33.2 g/dl (31.0-36.0); Mean Corpuscular Hemoglobin 29.7 pg (27.0-33.0); Mean Corpuscular Volume 89.4 fL (80.0-98.0); Mean Platelet Volume 9.9 fL (9.4-12.4); Platelet Count 209 X10*3/uL (160-400); Red Cell Distribution Width 16.3 % (11.0-16.0); White Blood Count 5.8 X10*3/uL (4.8-10.8)
[2023-05-06 07:34] LABS: Anion Gap 12 (12-20); Blood Urea Nitrogen 14 mg/dL (9-16); Carbon Dioxide 19 mmol/L (22-29); Chloride 117 mmol/L (96-108); Creatinine Clr Calc Pharmacy 57.7; Estimated Glomerular Filt Rate 56; Glucose Random 140 mg/dL (60-115); Potassium 4.5 mmol/L (3.3-5.1); Sodium 143 mmol/L (135-145)
[2023-05-06 07:44] LABS: Albumin Peritoneal Fluid 1.5
[2023-05-06 08:00] VITALS: BP 120/61; PULSE 79; RESP 18; TEMP 36.2; O2SAT 100
[2023-05-06] MEDS: 0.9 % Sodium Chloride Flush 3 ML SYRINGE IVFLUSH ×2 (10:30→14:54)
[2023-05-06] MEDS: Heparin Sodium,Porcine 5,000 UNIT/ML VIAL 5000 UNIT SUBCUT ×2 (10:32→17:18)
[2023-05-06 11:31] VITALS: BP 116/57; PULSE 100; RESP 18; TEMP 36.2; O2SAT 100
[2023-05-06 11:41] LABS: Glucose, Whole Blood 128 mg/dL (60-115)
--- NOTE | 2023-05-06 13:08 | MHC.CM.PN ---
Pt. not yet ready for DC. DC plan is to return to [facility] under his Medicare policy for STR. CM to follow and assist with DC plan.
[2023-05-06] MEDS: Nystatin Powder 15 GM BOTTLE 1 APPL TOPICAL (14:53)
[2023-05-06] MEDS: Lactulose 20 GM/30 ML SOLUTION 30 GM PO (14:54)
--- NOTE | 2023-05-06 14:54 | HO.PM.IMPN ---
Subjective Subjective Date of Service: 05/06/23 Interval History: toxic metabolic encephalopathy,proteus uti/bacteremia Review of Systems metal status seems somewhat improving no fevers intermitent refuses medictaions and also refuses catheter change. Physical Exam Vital Signs: Vital Signs: Last Vital Signs Temp 97.1 F 05/06/23 11:31 Pulse 100 05/06/23 11:31 Resp 18 05/06/23 11:31 BP 116/57 L 05/06/23 11:31 Pulse Ox 100 05/06/23 11:31 O2 Del Method Room Air 05/06/23 11:31 BMI result Body Mass Index 27.9 Appearance: Alert.? Orientedx2 , more awake ,intermittent agiatated ? cvs: rrr, [id number]. res: clear to auscultation ,no rhonchii or wheezing abd: no rebound or guarding ,nt, bs present . ext pulses present , no cyanosis . neuro: axo2 , nonfocal Objective Data Active Medications Acetaminophen (Acetaminophen 325 Mg Tablet) 975 mg PO Q6H PRN PRN Reason: Pain, Mild (Pain Scale 1-3) Last Admin: 05/05/23 17:37 Dose: 975 mg Documented By: MELECIO Dextrose (Dextrose 50 % 25 Gm/50 Ml Syringe) 25 gm IVPUSH Q15M PRN; Protocol PRN Reason: per Hypoglycemia Standing Ord. Folic Acid (Folic Acid 1 Mg Tablet) 1 mg PO DAILY [facility] Last Admin: 05/06/23 11:00 Dose: Not Given Documented By: HEATH Non-Admin Reason: Patient Refused Glucose (Glucose Gel 15 Gm Gel..Gram.) 15 gm PO Q15M PRN; Protocol PRN Reason: per Hypoglycemia Standing Ord. Heparin Sodium (Porcine) (Heparin Sodium,Porcine 5,000 Unit/Ml Vial) 5,000 unit SUBCUT Q8H [facility] Last Admin: 05/06/23 10:32 Dose: 5,000 unit Documented By: HEATH Thiamine HCl 200 mg/ Sodium (Chloride) 102 mls @ 204 mls/hr IV Q8H [facility] Last Infusion: 05/06/23 11:01 Dose: Infused Documented By: HEATH Ceftriaxone Sodium 2 gm/ (Sodium Chloride) 50 mls @ 100 mls/hr IV Q24H [facility] Last Infusion: 05/05/23 18:41 Dose: Infused Documented By: PEDRO Insulin Human Lispro (Insulin Lispro 100 Unit/Ml 3 Ml Vial) 0 unit SUBCUT Q6H [facility]; Protocol Last Admin: 05/06/23 11:39 Dose: Not Given Documented By: HEATH Non-Admin Reason: No Insulin Coverage Lactulose (Lactulose 20 Gm/30 Ml Solution) 30 gm PO TID [facility] Last Admin: 05/06/23 14:54 Dose: 30 gm Documented By: HEATH Lidocaine (Lidocaine 4 % Patch Adh..Patch) 1 patch TRANSDERMA DAILY [facility]; Protocol Last Admin: 05/06/23 10:54 Dose: Not Given Documented By: HEATH Non-Admin Reason: Patient Refused Midodrine (Midodrine Hcl 5 Mg Tablet) 10 mg PO TID@0600,1200,1800 [facility] Last Admin: 05/06/23 13:16 Dose: Not Given Documented By: HEATH Non-Admin Reason: Patient Refused Multivitamins/Vitamin C (Multivitamin Tablet) 1 tab PO DAILY [facility] Last Admin: 05/06/23 11:00 Dose: Not Given Documented By: HEATH Non-Admin Reason: Patient Refused Naltrexone HCl (Naltrexone Hcl 50 Mg Tablet) 50 mg PO DAILY [facility] Last Admin: 05/06/23 11:01 Dose: Not Given Documented By: HEATH Non-Admin Reason: Patient Refused Nystatin (Nystatin Powder 15 Gm Bottle) 1 appl TOPICAL TID [facility]; Protocol Last Admin: 05/06/23 14:53 Dose: 1 appl Documented By: HEATH Nystatin (Nystatin Cream 15 Gm Tube) 1 appl TOPICAL BID [facility]; Protocol Last Admin: 05/06/23 10:54 Dose: Not Given Documented By: HEATH Non-Admin Reason: Patient Refused Rifaximin (Rifaximin 550 Mg Tablet) 550 mg PO BID [facility] Last Admin: 05/06/23 11:01 Dose: Not Given Documented By: HEATH Non-Admin Reason: Patient Refused Sertraline HCl (Sertraline Hcl 50 Mg Tablet) 50 mg PO DAILY [facility] Last Admin: 05/06/23 11:01 Dose: Not Given Documented By: HEATH Non-Admin Reason: Patient Refused Sodium Chloride (0.9 % Sodium Chloride Flush 3 Ml Syringe) 3 ml IVFLUSH QSHIFT [facility] Last Admin: 05/06/23 14:54 Dose: 3 ml Documented By: HEATH Labs 05/06/23 06:44 05/06/23 06:44 Labs: Laboratory Results - last 24 hr 05/01/23 05/05/23 05/05/23 14:49 16:36 22:22 MCV MCH MCHC RDW Plt Count MPV Absolute Nucleated RBC Nucleated RBC % (auto) Anion Gap Estim Creat Clear Calc Estimated GFR POC Glucose 169 H 158 H Random Glucose Calcium Peritoneal Albumin 1.5 05/06/23 05/06/23 05/06/23 06:07 06:44 11:35 MCV 89.4 MCH 29.7 MCHC 33.2 RDW 16.3 H Plt Count 209 MPV 9.9 Absolute Nucleated RBC 0.000 Nucleated RBC % (auto) 0.0 Anion Gap 12 Estim Creat Clear Calc 57.7 Estimated GFR 56 POC Glucose 133 H 128 H Random Glucose 140 H Calcium 9.0 Peritoneal Albumin Microbiology Microbiology Results: Microbiology 05/01/23 14:49 Gram Stain - Final Abdominal Fluid Routine Culture - Final No growth after 2 days Anaerobic Culture - Final NO GROWTH AFTER 5 DAYS 04/30/23 17:27 Blood Culture - Final Blood - Venous No growth after 5 days. 04/30/23 17:30 Blood Culture - Final Blood - Venous No growth after 5 days. Assessment and Plan (1) Encephalopathy: Status: Acute (2) 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: Status: Acute Plan 67 years old man admitted with: sepsis and Possible Bacteremia secondary to Gram-negative bacilli/catheter-associated UTI + Gram-positive cocci( as per ed documentation -group home sent labs-growing Proteus in urine and blood-please see paper chart) acute lactic acidosis seems resolved. sepsis resolved. ED (here in [facility])-urine cultures -mixed and blood cultures negative @24hrs plan: blood cultures and urine culture negative . urology evaluation-Exchange indwelling urinary catheter (urology will change catheter ) patient did not cooperate to change catheter earlier ,spoke to his -she will come tomorrow to help to convince for catheter removal. low SAAG ascites - cyto pending for ? peritoneal carcinomatosis. AFB smear and culture pending. Acistis gram cultures -so far negative. continue ceftriaxone 05/01. will need Gi follow up before discharge. Encephalopathy likely multifactorial:(possible toxic metabolic) Mild hepatic encephalopathy, acute illness, medication. menatl status somewhat improving,Aspiration precautions Hold gabapentin. s/p paracentesis -less likely sbp,ascitis cultures negative also sofar. stool studies-cdiff ,Gi Panel -negative, fine ,ammonia levels fine plan : added ct head goal around 3 bm/day continue lactulose and rifixamin due to diarrhae . d/w patient -his mental status improving,still not at baseline ,agiatated neurology eval. Acute kidney injury likely multifactorial: Sepsis/bacteremia, ? hepatorenal syndrome. seems improved significantly ,off fluids, Avoid nephrotoxic agents. GERD. PPI IV. Orthostatic hypotension. Continue midodrine 10 mg p.o. t.i.d. Type 2 diabetes mellitus. Blood glucose monitoring every 6 hours while NPO. Blood glucose control with insulin sliding scale for now. hold coverage below 200 mg/dl. DVT prophylaxis: Heparin subcut. GI prophylaxis: Protonix ongoing hospitalization need for for protues bacteremia ,toxic metabolic encephalopathy secondary to catheter associated UTI treatment with IV antibiotics and IV fluids, renal function electrolyte monitoring as well as mental status monitoring. Quality Stroke Does the patient have a stroke diagnosis?: No VTE Prior VTE?: No VTE Risk Level:: Medical - moderate - high VTE Device Contraindication: N/A - Device Ordered VTE Drug Contraindication: N/A - Med Ordered
[2023-05-06 15:31] VITALS: BP 105/66; PULSE 79; RESP 18; TEMP 36.4; O2SAT 100
[2023-05-06] MEDS: Midodrine HCl 5 MG TABLET 10 MG PO (17:05)
[2023-05-06] MEDS: cefTRIAXone sodium 2 GM in 0.9 % Sodium Chloride 50 ML IV (17:21)
[2023-05-06 17:40] LABS: Glucose, Whole Blood 114 mg/dL (60-115)
[2023-05-06 20:00] VITALS: BP 118/69; PULSE 91; RESP 18; TEMP 38.8; O2SAT 92
[2023-05-06 23:03] VITALS: BP 108/55; PULSE 93; RESP 16; TEMP 36.6; O2SAT 97
[2023-05-06 23:10] LABS: Glucose, Whole Blood 147 mg/dL (60-115)
--- NOTE | 2023-05-07 01:30 | PC.NURSE ---
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 Per AM RN, a few RN's attempted to get an new IV in pt but the pt became agitated, combative, argumentative, and refused any more staff to look for IV access. When I assumed care of pt after shift report, Pt AXOx1, confused, refused a full shift assessment from this RN and only allow this RN to listen to his lungs and bowel sounds. This RN educated the pt the importance of medications, IV access, and assessment but became agitated, argumentative, and refused to listen. Med/Teley charge nurse at bedside with this RN. The pt threatened to call police and yelled at this RN and travel rn or to leave the the room. The pt refused this RN to do any further education, medication, or assessment. MD Spangler notified of the pt's behavior and refusal of IV access, medications, and assessment. Camera in room and bed in lowest position. Will continue to monitor pt's behavior.
[2023-05-07 04:00] VITALS: BP 122/56; PULSE 77; RESP 16; TEMP 36.8
[2023-05-07 04:18] LABS: Glucose, Whole Blood 121 mg/dL (60-115)
[2023-05-07 07:22] LABS: Glucose, Whole Blood 117 mg/dL (60-115)
[2023-05-07 07:45] VITALS: BP 102/51; PULSE 92; RESP 17; TEMP 36.6; O2SAT 96
[2023-05-07 08:52] LABS: Hematocrit 31.1 % (42.0-52.0); Hemoglobin 10.5 g/dl (14.0-18.0); Mean Corpuscular HGB Conc 33.8 g/dl (31.0-36.0); Mean Corpuscular Hemoglobin 29.8 pg (27.0-33.0); Mean Corpuscular Volume 88.4 fL (80.0-98.0); Mean Platelet Volume 9.8 fL (9.4-12.4); Platelet Count 191 X10*3/uL (160-400); Red Blood Count 3.52 X10*6/uL (4.60-5.80); Red Cell Distribution Width 16.3 % (11.0-16.0); White Blood Count 6.6 X10*3/uL (4.8-10.8)
[2023-05-07] MEDS: 0.9 % Sodium Chloride Flush 3 ML SYRINGE IVFLUSH ×2 (08:53→21:27)
[2023-05-07] MEDS: Sertraline HCL 50 MG TABLET PO (08:54)
[2023-05-07] MEDS: Folic Acid 1 MG TABLET PO (08:54)
[2023-05-07] MEDS: Naltrexone HCl 50 MG TABLET PO (08:54)
[2023-05-07] MEDS: rifAXIMin 550 MG TABLET PO ×2 (08:54→21:26)
[2023-05-07] MEDS: Multivitamin TABLET 1 TAB PO (08:54)
[2023-05-07] MEDS: Midodrine HCl 5 MG TABLET 10 MG PO ×3 (08:54→17:55)
[2023-05-07] MEDS: Lidocaine 4 % Patch ADH..PATCH 1 PATCH TRANSDERMA (08:55)
[2023-05-07] MEDS: Heparin Sodium,Porcine 5,000 UNIT/ML VIAL 5000 UNIT SUBCUT ×2 (08:55→17:54)
[2023-05-07 09:09] LABS: Creatinine Clr Calc Pharmacy 62.6; Estimated Glomerular Filt Rate > 60
[2023-05-07 09:10] LABS: Anion Gap 11 (12-20); Blood Urea Nitrogen 12 mg/dL (9-16); Carbon Dioxide 18 mmol/L (22-29); Chloride 116 mmol/L (96-108); Creatinine Clr Calc Pharmacy 63.2; Estimated Glomerular Filt Rate > 60; Glucose Random 132 mg/dL (60-115); Potassium 4.4 mmol/L (3.3-5.1); Sodium 141 mmol/L (135-145)
[2023-05-07 11:44] LABS: Glucose, Whole Blood 150 mg/dL (60-115)
[2023-05-07 12:00] VITALS: BP 114/58; PULSE 89; RESP 16; TEMP 37.2; O2SAT 97
[2023-05-07] MEDS: Thiamine HCL 100 MG TABLET PO (13:24)
[2023-05-07] MEDS: LORazepam 2 MG/ML VIAL 0.25 MG IVPUSH (13:25)
--- NOTE | 2023-05-07 14:17 | PM.UROPN ---
Subjective Subjective Date of Service: 05/07/23 Physical Exam Vital Signs: Vital Signs: Last Vital Signs Temp 98.9 F 05/07/23 12:00 Pulse 89 05/07/23 12:00 Resp 16 05/07/23 12:00 BP 114/58 L 05/07/23 12:00 Pulse Ox 97 05/07/23 12:00 O2 Del Method Room Air 05/07/23 12:00 O2 Flow Rate 90 05/06/23 20:00 BMI result Body Mass Index 27.9 Urology Results Labs 05/07/23 08:41 05/07/23 08:41 Labs: Laboratory Results - last 24 hr 05/06/23 05/06/23 05/07/23 17:35 23:06 04:13 WBC RBC Hgb Hct MCV MCH MCHC RDW Plt Count MPV Absolute Nucleated RBC Nucleated RBC % (auto) Sodium Potassium Chloride Carbon Dioxide Anion Gap BUN Creatinine Estim Creat Clear Calc Estimated GFR POC Glucose 114 147 H 121 H Random Glucose Calcium 05/07/23 05/07/23 05/07/23 07:19 08:41 08:41 WBC 6.6 RBC 3.52 L Hgb 10.5 L Hct 31.1 L MCV 88.4 MCH 29.8 MCHC 33.8 RDW 16.3 H Plt Count 191 MPV 9.8 Absolute Nucleated RBC 0.000 Nucleated RBC % (auto) 0.0 Sodium 141 Potassium 4.4 Chloride 116 H Carbon Dioxide 18 L Anion Gap 11 L BUN 12 Creatinine 1.16 1.17 Estim Creat Clear Calc 63.2 Estimated GFR POC Glucose 117 H Random Glucose Calcium 05/07/23 05/07/23 05/07/23 08:41 08:41 11:40 WBC RBC Hgb Hct MCV MCH MCHC RDW Plt Count MPV Absolute Nucleated RBC Nucleated RBC % (auto) Sodium Potassium Chloride Carbon Dioxide Anion Gap BUN Creatinine Estim Creat Clear Calc 62.6 Estimated GFR > 60 > 60 POC Glucose 150 H Random Glucose 132 H Calcium 9.0 Urology Procedures Catheter Insertion (Urinary) Date of insertion: 05/07/23 Replacement of catheter present on admission: Yes Reason for placing: Prolonged immobilization Bladder scan/ultrasound used before catheterization: No Antiseptic solution prep: Povidone-Iodine Topical anesthesia used: Yes Catheter type/location: 2-way Urethral Size (Vietnamese): 16 Catheter balloon size (mL): 10 Catheter balloon amount: 10 Results: successfully catheterized-immediate flow and consulted Procedure performed: without complications Progress Note: A&P Time Spent With Patient Time: Total time managing care of this patient today ____ minutes. Progress Note: Quality Stroke Does the patient have a stroke diagnosis?: No
--- NOTE | 2023-05-07 14:58 | P.PNIM_ITS ---
Subjective Subjective Date of Service: 05/07/23 Interval History: refused lactulose this AM mental status improved despite this anxious about catheter change Review of Systems Review of Systems: Yes all other systems are reviewed and are negative Physical Exam 2 Vital Signs: Vital Signs: Last Vital Signs Temp 98.9 F 05/07/23 12:00 Pulse 89 05/07/23 12:00 Resp 16 05/07/23 12:00 BP 114/58 L 05/07/23 12:00 Pulse Ox 97 05/07/23 12:00 O2 Del Method Room Air 05/07/23 12:00 O2 Flow Rate 90 05/06/23 20:00 BMI result Body Mass Index 27.9 Gen: in no acute distress HEENT: sclera anicteric, moist mucus membranes Neck: supple Lungs: clear to auscultation bilaterally Heart: regular rate and rhythm, no murmurs Abd: soft, non-tender, non-distended Ext: no edema Skin: warm/well-perfused Neuro: alert and oriented to self+place, no asterixis Psych: appropriate affect Objective Data Active Medications Acetaminophen (Acetaminophen 325 Mg Tablet) 975 mg PO Q6H PRN PRN Reason: Pain, Mild (Pain Scale 1-3) Last Admin: 05/05/23 17:37 Dose: 975 mg Documented By: MELECIO Dextrose (Dextrose 50 % 25 Gm/50 Ml Syringe) 25 gm IVPUSH Q15M PRN; Protocol PRN Reason: per Hypoglycemia Standing Ord. Folic Acid (Folic Acid 1 Mg Tablet) 1 mg PO DAILY [facility] Last Admin: 05/07/23 08:54 Dose: 1 mg Documented By: LAVERNE Glucose (Glucose Gel 15 Gm Gel..Gram.) 15 gm PO Q15M PRN; Protocol PRN Reason: per Hypoglycemia Standing Ord. Heparin Sodium (Porcine) (Heparin Sodium,Porcine 5,000 Unit/Ml Vial) 5,000 unit SUBCUT Q8H [facility] Last Admin: 05/07/23 08:55 Dose: 5,000 unit Documented By: LAVERNE Ceftriaxone Sodium 2 gm/ (Sodium Chloride) 50 mls @ 100 mls/hr IV Q24H [facility] Last Infusion: 05/06/23 21:21 Dose: Infused Documented By: KARMA Insulin Human Lispro (Insulin Lispro 100 Unit/Ml 3 Ml Vial) 0 unit SUBCUT Q6H [facility]; Protocol Last Admin: 05/07/23 12:04 Dose: Not Given Documented By: LAVERNE Non-Admin Reason: No Insulin Coverage Lactulose (Lactulose 20 Gm/30 Ml Solution) 30 gm PO TID [facility] Last Admin: 05/07/23 07:49 Dose: Not Given Documented By: LAVERNE Non-Admin Reason: Patient Refused Lidocaine (Lidocaine 4 % Patch Adh..Patch) 1 patch TRANSDERMA DAILY [facility]; Protocol Last Admin: 05/07/23 08:55 Dose: 1 patch Documented By: LAVERNE Melatonin (Melatonin 3 Mg Tablet) 3 mg PO BEDTIME [facility] Last Admin: 05/06/23 21:23 Dose: Not Given Documented By: KARMA Non-Admin Reason: pt refused, MD Spangler notified Midodrine (Midodrine Hcl 5 Mg Tablet) 10 mg PO TID@0600,1200,1800 [facility] Last Admin: 05/07/23 13:24 Dose: 10 mg Documented By: LAVERNE Comments: 12:00 dose Multivitamins/Vitamin C (Multivitamin Tablet) 1 tab PO DAILY [facility] Last Admin: 05/07/23 08:54 Dose: 1 tab Documented By: LAVERNE Naltrexone HCl (Naltrexone Hcl 50 Mg Tablet) 50 mg PO DAILY [facility] Last Admin: 05/07/23 08:54 Dose: 50 mg Documented By: LAVERNE Nystatin (Nystatin Powder 15 Gm Bottle) 1 appl TOPICAL TID [facility]; Protocol Last Admin: 05/07/23 12:02 Dose: Not Given Documented By: LAVERNE Non-Admin Reason: off unit Nystatin (Nystatin Cream 15 Gm Tube) 1 appl TOPICAL BID [facility]; Protocol Last Admin: 05/07/23 12:02 Dose: Not Given Documented By: LAVERNE Non-Admin Reason: off unit Rifaximin (Rifaximin 550 Mg Tablet) 550 mg PO BID [facility] Last Admin: 05/07/23 08:54 Dose: 550 mg Documented By: LAVERNE Sertraline HCl (Sertraline Hcl 50 Mg Tablet) 50 mg PO DAILY [facility] Last Admin: 05/07/23 08:54 Dose: 50 mg Documented By: LAVERNE Sodium Chloride (0.9 % Sodium Chloride Flush 3 Ml Syringe) 3 ml IVFLUSH QSHIFT [facility] Last Admin: 05/07/23 08:53 Dose: 3 ml Documented By: LAVERNE Thiamine HCl (Thiamine Hcl 100 Mg Tablet) 100 mg PO DAILY [facility] Last Admin: 05/07/23 13:24 Dose: 100 mg Documented By: LAVERNE Labs 05/07/23 08:41 05/07/23 08:41 Labs: Laboratory Results - last 24 hr 05/06/23 05/06/23 05/07/23 17:35 23:06 04:13 MCV MCH MCHC RDW Plt Count MPV Absolute Nucleated RBC Nucleated RBC % (auto) Anion Gap Estim Creat Clear Calc Estimated GFR POC Glucose 114 147 H 121 H Random Glucose Calcium 05/07/23 05/07/23 05/07/23 07:19 08:41 08:41 MCV 88.4 MCH 29.8 MCHC 33.8 RDW 16.3 H Plt Count 191 MPV 9.8 Absolute Nucleated RBC 0.000 Nucleated RBC % (auto) 0.0 Anion Gap 11 L Estim Creat Clear Calc 63.2 62.6 Estimated GFR > 60 POC Glucose 117 H Random Glucose Calcium 05/07/23 05/07/23 08:41 11:40 MCV MCH MCHC RDW Plt Count MPV Absolute Nucleated RBC Nucleated RBC % (auto) Anion Gap Estim Creat Clear Calc Estimated GFR > 60 POC Glucose 150 H Random Glucose 132 H Calcium 9.[address] 05/07/23 11:13 IMPRESSION: There are scattered chronic small vessel ischemic changes within the periventricular white matter. Otherwise unremarkable examination. No evidence of acute territorial infarct or hemorrhage. Microbiology Microbiology Results: Microbiology 05/01/23 14:49 Gram Stain - Final Abdominal Fluid Routine Culture - Final No growth after 2 days Anaerobic Culture - Final NO GROWTH AFTER 5 DAYS Assessment and Plan (1) Encephalopathy: Status: Acute (2) 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: Status: Acute Plan d8 67yo M from [facility] @ [facility], PMHx of EtOH cirrhosis, chronic indwelling urinary cathter, orthostatic hypotension, GERD, and DM2 sent in for worsening confusion, BCx with GNRs + GPCs admitted for sepsis + bacteremia sepsis due to bacteremia + UTI - BCx 04/29 from [facility] grew Proteus mirabilis resistant to TMP-SMX + cipro, BCx here 04/30 negative. Also GPCs on BCx 04/29- will call lab for speciation - Urology to change catheter today - lactic acidosis resolved - ceftriaxone 05/01- ascites - paracentesis done 05/01, low SAAG, cytology pending - GI following multifactorial encephalopathy - mild hepatic + infection + toxic [medication] - gabapentin held - continue lactulose + rifaximin - Neurology consult pending, CT head as above PENNY - resolved after fluids + albumin GERD - PPI orthostatic hypotension, chronic - midodrine DM2 - correction-dose lispro AUD - thiamine, naltrexone mood disorder - sertraline VTE ppx - UFH dispo - eventual return to [facility] In my clinical judgment, the patient requires continued inpatient hospitalization for the following reasons: - IV ABX Total time managing care of this patient today: 50 minutes. Quality Stroke Does the patient have a stroke diagnosis?: No VTE Prior VTE?: No VTE Risk Level:: Medical - moderate - high VTE Device Contraindication: N/A - Device Ordered VTE Drug Contraindication: N/A - Med Ordered
[2023-05-07 16:00] VITALS: BP 109/61; PULSE 77; RESP 16; TEMP 37.3; O2SAT 96
[2023-05-07 16:01] LABS: Glucose, Whole Blood 158 mg/dL (60-115)
[2023-05-07] MEDS: Lactulose 20 GM/30 ML SOLUTION 30 GM PO ×2 (16:05→21:33)
--- NOTE | 2023-05-07 17:23 | HO.WOUND ---
Wound Consult: Initial 67yr old?Male admitted to [facility] on 04/30/23 - See progress notes and H&P for detailed history.? Wound consult placed for Buttock and groin wounds and right hand sin tear.? Patient agreeable to assessment and photo documentation.?the Patient was confused at times and became increasingly irritated throughout my consultation. He was not agreeable to photo documentation and not agreeable to repositioning despite education. The right Hand was assessed and noted for a skin tear - he had a foam in place and was resistant to removal due to discomfort. Ultimately he was agreeable to assessment and he removed the dressing. Partial thickness tissue loss noted - clean wound bed with dried drainage around wound bed edge. Cleansed and completed with xeroform and gauze wrap. Groin and scrotum assessed and noted for fungal dermatitis (Red macular papular rash with advancing boarders with satellite lesions noted. Nystatin already in place for treatment. No new topical recommendations needed at this time - continue with topical Nystatin treatment followed by [employer] clear barrier cream (Light purple pink top). Buttocks and Sacrum assessed - there was not pressure injury noted at this time - tissue remains intact red pink but blanchable throughout - noted for MASD -IAD (Moisture associated skin damage - Incontinence associated dermatitis) Off load pressure to prevent pressure injury development and treat MASD with [employer] clear barrier cream (Light purple pink top). Recommendations: 1. Turn and Reposition every 2 hours and as needed for patient comfort.? Use pillows or wedges to support off loading positions. 2. Off Load all bony prominences with use of pillows and heel boots if needed.? Apply Preventative foams where needed. ? 3. Monitor for incontinence and moisture control, use barrier creams when needed for prevention and treatment. 4. Provide adequate and supplemental nutrition.? 5. Order or Continue low air loss mattress. 6. When applicable maintain blood glucose levels per Providers order. 7. Right Hand - Cleanse with normal saline, pat dry. ?Apply double layer Xeroform secure with Abd pads, gauze wrap and tape. ?Do not apply tape to patients skin.? Avoid Adhesive application to skin - when necessary, apply skin prep prior.? 8. Sacrum and Buttock - Off Load Pressure - Cleanse with PH balance spray or wipes, pat dry. ?Apply thin layer [employer] clear barrier cream (Light purple pink top) to wound bed - only pat and dab no scrub and rub when soiling occurs. Reapply thin layer PRN after each episode of incontinence. 9. Groin / Perineal area - Cleanse with PH balance wipes, pat dry with soft cloth.? Apply antifungal power to assist with moisture management.? Be sure to dust of excess powder to prevent caking on skin and in folds. Apply twice daily per provider orders. Follow with [employer] clear barrier cream (Light purple pink top) to red irritated tissue. Re-consult wound care Nurse for wound deterioration or wound changes.
--- NOTE | 2023-05-07 17:36 | PM.NEUROCN ---
History of Present Illness Data of Consult Service Date: 05/07/23 Primary Care Provider: Sharon Lopez MD [facility] Reason for consult: Altered mental status This is a 67 years old man with past medical history of alcoholic liver cirrhosis/chronic liver disease, chronic indwelling urinary catheter, GERD, orthostatic hypotension on midodrine, and type 2 diabetes mellitus on insulin was brought to the emergency department from his nursing facility due to worsening confusion over the last week. His blood cultures came back positive for Gram-negative bacilli and Gram-positive cocci. UA c/w UTI. Patient is confused but answers some simple questions. He denied headache , pain, shortness on breath or nausea. Patient's states that his confusion has been on and off over the last week. He takes lactulose for hepatic encephalopathy. Review of Systems Review of Systems: metal status seems somewhat improving no fevers intermitent refuses medictaions and also refuses catheter change. Yes all other systems are reviewed and are negative, Unobtainable due to mental condition and Unobtainable due to mental status PMFSH Past Medical History Medical History 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 Orthostatic hypotension Chronic liver disease Type 2 diabetes mellitus Family History Family history: reviewed and not pertinent Social History Social History Housing: Assisted Living Facility Patient Tobacco Use Status: Former Tobacco user service: No Meds Allergies Allergy/AdvReac Type Severity Reaction Status Date / Time lisinopril Allergy Angioedema Verified 04/30/23 17:28 scallops Allergy Angioedema Verified 04/30/23 17:28 Active Medications: Current Medications Acetaminophen (Acetaminophen 325 Mg Tablet) 975 mg PO Q6H PRN PRN Reason: Pain, Mild (Pain Scale 1-3) Last Admin: 05/05/23 17:37 Dose: 975 mg Dextrose (Dextrose 50 % 25 Gm/50 Ml Syringe) 25 gm IVPUSH Q15M PRN; Protocol PRN Reason: per Hypoglycemia Standing Ord. Folic Acid (Folic Acid 1 Mg Tablet) 1 mg PO DAILY MIRIAM Last Admin: 05/07/23 08:54 Dose: 1 mg Glucose (Glucose Gel 15 Gm Gel..Gram.) 15 gm PO Q15M PRN; Protocol PRN Reason: per Hypoglycemia Standing Ord. Heparin Sodium (Porcine) (Heparin Sodium,Porcine 5,000 Unit/Ml Vial) 5,000 unit SUBCUT Q8H [facility] Last Admin: 05/07/23 08:55 Dose: 5,000 unit Ceftriaxone Sodium 2 gm/ (Sodium Chloride) 50 mls @ 100 mls/hr IV Q24H [facility] Last Infusion: 05/06/23 21:21 Dose: Infused Insulin Human Lispro (Insulin Lispro 100 Unit/Ml 3 Ml Vial) 0 unit SUBCUT Q6H [facility]; Protocol Last Admin: 05/07/23 17:27 Dose: Not Given Lactulose (Lactulose 20 Gm/30 Ml Solution) 30 gm PO TID [facility] Last Admin: 05/07/23 16:05 Dose: 30 gm Lidocaine (Lidocaine 4 % Patch Adh..Patch) 1 patch TRANSDERMA DAILY [facility]; Protocol Last Admin: 05/07/23 08:55 Dose: 1 patch Melatonin (Melatonin 3 Mg Tablet) 3 mg PO BEDTIME [facility] Last Admin: 05/06/23 21:23 Dose: Not Given Midodrine (Midodrine Hcl 5 Mg Tablet) 10 mg PO TID@0600,1200,1800 [facility] Last Admin: 05/07/23 13:24 Dose: 10 mg Multivitamins/Vitamin C (Multivitamin Tablet) 1 tab PO DAILY [facility] Last Admin: 05/07/23 08:54 Dose: 1 tab Naltrexone HCl (Naltrexone Hcl 50 Mg Tablet) 50 mg PO DAILY [facility] Last Admin: 05/07/23 08:54 Dose: 50 mg Nystatin (Nystatin Powder 15 Gm Bottle) 1 appl TOPICAL TID [facility]; Protocol Last Admin: 05/07/23 16:06 Dose: Not Given Nystatin (Nystatin Cream 15 Gm Tube) 1 appl TOPICAL BID [facility]; Protocol Last Admin: 05/07/23 12:02 Dose: Not Given Rifaximin (Rifaximin 550 Mg Tablet) 550 mg PO BID [facility] Last Admin: 05/07/23 08:54 Dose: 550 mg Sertraline HCl (Sertraline Hcl 50 Mg Tablet) 50 mg PO DAILY [facility] Last Admin: 05/07/23 08:54 Dose: 50 mg Sodium Chloride (0.9 % Sodium Chloride Flush 3 Ml Syringe) 3 ml IVFLUSH QSHIFT [facility] Last Admin: 05/07/23 16:09 Dose: Not Given Thiamine HCl (Thiamine Hcl 100 Mg Tablet) 100 mg PO DAILY MIRIAM Last Admin: 05/07/23 13:24 Dose: 100 mg Home Medications Medication Instructions Recorded Confirmed Last Taken Type acetaminophen 325 mg tablet 650 mg PO QID PRN Pain 04/30/23 04/30/23 Unknown History folic acid 1 mg tablet 1 mg PO DAILY 04/30/23 04/30/23 Unknown History gabapentin 100 mg capsule 100 mg PO TID 04/30/23 04/30/23 Unknown History insulin glargine 100 unit/mL (3 30 unit subcut BEDTIME 04/30/23 04/30/23 Unknown History mL) subcutaneous pen (Lantus Solostar U-100 Insulin) insulin lispro 100 unit/mL 0 sliding scale dose subcut TIDAC 04/30/23 04/30/23 Unknown History subcutaneous pen (Humalog KwikPen (U-100) Insulin) lactulose 10 gram/15 mL oral 45 ml PO TID 04/30/23 04/30/23 Unknown History solution melatonin 3 mg tablet 3 mg PO BEDTIME Sleep 04/30/23 04/30/23 Unknown History midodrine 10 mg tablet 10 mg PO TID@0600,1200,1800 04/30/23 04/30/23 Unknown History multivitamin 1 tab PO DAILY 04/30/23 04/30/23 Unknown History naltrexone 50 mg tablet 50 mg PO DAILY 04/30/23 04/30/23 Unknown History pantoprazole 40 mg tablet,delayed 40 mg PO DAILY 04/30/23 04/30/23 Unknown History release rifaximin 550 mg tablet (Xifaxan) 550 mg PO BID 04/30/23 04/30/23 Unknown History sertraline 50 mg tablet 50 mg PO DAILY 04/30/23 04/30/23 Unknown History thiamine HCl (vitamin B1) 100 mg 100 mg PO DAILY 04/30/23 04/30/23 Unknown History tablet Physical Exam Vital Signs: Vital Signs: Last Vital Signs Temp 99.2 F 05/07/23 16:00 Pulse 77 05/07/23 16:00 Resp 16 05/07/23 16:00 BP 109/61 05/07/23 16:00 Pulse Ox 96 05/07/23 16:00 O2 Del Method Room Air 05/07/23 16:00 O2 Flow Rate 90 05/06/23 20:00 BMI result Body Mass Index 27.9 Const: General: cooperative, no acute distress and well developed HEENT: Head: Yes normal to inspection, Yes normocephalic and Yes atraumatic Face and sinus: Yes normal facial exam Mouth: Normal oral and palatal mucosa present Teeth and gingiva: dentition normal Eyes: General: appearance normal, both eyes and all related structures Conjunctivae: conjunctivae normal Pupils: Equal, round and reactive pupils present Neck: Neck: Yes normal visual inspection Chest: Chest palpation & inspection: normal inspection of the chest Resp: Effort & Inspection: normal respiratory effort Cardio: Rate: regular rate Rhythm: regular rhythm GI: Other: Abdomen distended Inspection: Yes distended Palpation (GI): Soft to palpation and nontender : Other: buried penis, garcia in place General: Yes no CVA tenderness Scrotum: scrotum normal Back/Spine/Pelvis: Back: no CVA tenderness Skin: General skin exam: no rashes or lesions noted Neuro: Other: He is lethargic but arousable. He knows his name, but can answer most questions. He could not tell me where he is. He says he lives in [place] could not tell me his age and is not oriented to time. He follows simple commands. Denies any headache. Cranial nerves appear to be intact grossly with no facial asymmetry and full eye movements. His telephone operator receptionist strength and upper extremity strength is normal. There is no asterixis. He moves all 4 extremities against gravity and plantar response are flexor. General: moves all extremities Cranial nerves: Yes Equal, round and reactive pupils present Extrem: General: Yes normal to inspection and No pedal edema Psych: Appearance: grossly normal Affect: normal affect Results Labs 05/07/23 08:41 05/07/23 08:41 Labs: Short CBC 05/07/23 Range/Units 08:41 WBC 6.6 (4.8-10.8) X10*3/uL Hgb 10.5 L (14.0-18.0) g/dl Hct 31.1 L (42.0-52.0) % Plt Count 191 (160-400) X10*3/uL BMP 05/07/23 05/07/23 08:41 08:41 Sodium 141 Potassium 4.4 Chloride 116 H Carbon Dioxide 18 L BUN 12 Creatinine 1.16 1.17 Calcium 9.0 Microbiology Microbiology Results: Microbiology 05/01/23 14:49 Abdominal Fluid Gram Stain - Final 05/01/23 14:49 Abdominal Fluid Routine Culture - Final No growth after 2 days 05/01/23 14:49 Abdominal Fluid Anaerobic Culture - Final NO GROWTH AFTER 5 DAYS 04/30/23 17:27 Blood - Venous Blood Culture - Final No growth after 5 days. 04/30/23 17:30 Blood - Venous Blood Culture - Final No growth after 5 days. 04/30/23 18:55 Urine Catheterized - Garcia Catheter Urine Culture - Final Assessment and Plan (1) Encephalopathy: Status: Acute He appears to have a day. Multifactorial encephalopathy, probably related to sepsis and UTI superimposed on his chronic liver disease. Recommendation treatment of infection. Check a serum ammonia levels. Correction of metabolic abnormalities. I reviewed his CT scan films which show age-related atrophy and microvascular white matter disease. (2) 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: Status: Acute Plan d8 67yo M from [facility], PMHx of EtOH cirrhosis, chronic indwelling urinary cathter, orthostatic hypotension, GERD, and DM2 sent in for worsening confusion, BCx with GNRs + GPCs admitted for sepsis + bacteremia sepsis due to bacteremia + UTI - BCx 04/29 from [place] grew Proteus mirabilis resistant to TMP-SMX + cipro, BCx here 04/30 negative. Also GPCs on BCx 04/29- will call lab for speciation - Urology to change catheter today - lactic acidosis resolved - ceftriaxone 05/01- ascites - paracentesis done 05/01, low SAAG, cytology pending - GI following multifactorial encephalopathy - mild hepatic + infection + toxic [medication] - gabapentin held - continue lactulose + rifaximin - Neurology consult pending, CT head as above PENNY - resolved after fluids + albumin GERD - PPI orthostatic hypotension, chronic - midodrine DM2 - correction-dose lispro AUD - thiamine, naltrexone mood disorder - sertraline VTE ppx - UFH dispo - eventual return to [facility] In my clinical judgment, the patient requires continued inpatient hospitalization for the following reasons: - IV ABX Procedures Date of Service Date of Service: 05/07/23
[2023-05-07] MEDS: cefTRIAXone sodium 2 GM in 0.9 % Sodium Chloride 50 ML IV (17:55)
[2023-05-07 19:56] VITALS: BP 94/66; PULSE 96; RESP 20; TEMP 36.2; O2SAT 96
[2023-05-07] MEDS: Acetaminophen 325 MG TABLET 975 MG PO (21:26)
[2023-05-07] MEDS: Melatonin 3 MG TABLET PO (21:26)
[2023-05-07] MEDS: Nystatin Powder 15 GM BOTTLE 1 APPL TOPICAL (21:30)
[2023-05-07] MEDS: Nystatin Cream 15 GM TUBE 1 APPL TOPICAL (21:30)
--- NOTE | 2023-05-07 21:43 | PC.NURSE ---
Assumed care of patient at 19:00. Patient is Alert, only oriented to self. Attempts made to redirect, patient initially calm and cooperative. RN attempted to remove right forearm IV in place on assuming care as it was visibly painful to the patient when flushed. When RN attempted to remove the painful IV the patient grabbed sign writer hand's wrist and became verbally aggressive, requesting to leave this restaurant . Pt allowed space to calm down, attempted to D/C IV again with charge master specialist though pt again became agitated and refused. Patient allowed to rest in bed, no distress noted. VSS. Patient continues to refuse groundwater monitoring technician when discussed, off on assuming care/removed by patient per handoff report. Covering Dr. Spangler notified.
[2023-05-07 22:34] VITALS: RESP 18
[2023-05-08] VITALS (9 sets, daily range): BP systolic 95–130; BP diastolic 50–62; PULSE 54–86; RESP 16–20; TEMP 36.1–36.9; O2SAT 94–100
[2023-05-08 00:45] LABS: Glucose, Whole Blood 135 mg/dL (60-115)
[2023-05-08] MEDS: Heparin Sodium,Porcine 5,000 UNIT/ML VIAL 5000 UNIT SUBCUT ×2 (00:56→09:00)
[2023-05-08 05:54] LABS: Glucose, Whole Blood 124 mg/dL (60-115)
[2023-05-08] MEDS: Midodrine HCl 5 MG TABLET 10 MG PO ×2 (06:09→08:57)
[2023-05-08] MEDS: 0.9 % Sodium Chloride Flush 3 ML SYRINGE IVFLUSH ×2 (08:56→23:03)
[2023-05-08] MEDS: Thiamine HCL 100 MG TABLET PO (08:57)
[2023-05-08] MEDS: rifAXIMin 550 MG TABLET PO ×2 (08:57→23:02)
[2023-05-08] MEDS: Folic Acid 1 MG TABLET PO (08:58)
[2023-05-08] MEDS: Sertraline HCL 50 MG TABLET PO (08:58)
[2023-05-08] MEDS: Multivitamin TABLET 1 TAB PO (08:58)
[2023-05-08] MEDS: Nystatin Cream 15 GM TUBE 1 APPL TOPICAL (09:00)
[2023-05-08] MEDS: Naltrexone HCl 50 MG TABLET PO (09:00)
[2023-05-08] MEDS: Nystatin Powder 15 GM BOTTLE 1 APPL TOPICAL ×2 (09:00→14:56)
[2023-05-08] MEDS: Lactulose 20 GM/30 ML SOLUTION 30 GM PO ×3 (09:01→23:02)
[2023-05-08 09:04] LABS: Ammonia 37 umol/L (13-55)
[2023-05-08 11:00] LABS: Glucose, Whole Blood 125 mg/dL (60-115)
--- NOTE | 2023-05-08 11:25 | P.PNIM_ITS ---
Subjective Subjective Date of Service: 05/08/23 Interval History: catheter change yesterday c/o some urinary irritation, no other complaints Review of Systems Review of Systems: Yes all other systems are reviewed and are negative Physical Exam 2 Vital Signs: Vital Signs: Last Vital Signs Temp 98.5 F 05/08/23 11:08 Pulse 86 05/08/23 11:08 Resp 20 05/08/23 11:08 BP 120/60 05/08/23 11:08 Pulse Ox 98 05/08/23 11:08 O2 Del Method Room Air 05/08/23 11:08 O2 Flow Rate 90 05/06/23 20:00 BMI result Body Mass Index 27.9 Gen: in no acute distress HEENT: sclera anicteric, moist mucus membranes Neck: supple Lungs: clear to auscultation bilaterally Heart: regular rate and rhythm, no murmurs Abd: soft, non-tender, non-distended Ext: no edema Skin: warm/well-perfused Neuro: alert and oriented to self+place, no asterixis Psych: appropriate affect Objective Data Active Medications Acetaminophen (Acetaminophen 325 Mg Tablet) 975 mg PO Q6H PRN PRN Reason: Pain, Mild (Pain Scale 1-3) Last Admin: 05/07/23 21:26 Dose: 975 mg Documented By: ALBIN Dextrose (Dextrose 50 % 25 Gm/50 Ml Syringe) 25 gm IVPUSH Q15M PRN; Protocol PRN Reason: per Hypoglycemia Standing Ord. Folic Acid (Folic Acid 1 Mg Tablet) 1 mg PO DAILY [facility] Last Admin: 05/08/23 08:58 Dose: 1 mg Documented By: BIJAN Glucose (Glucose Gel 15 Gm Gel..Gram.) 15 gm PO Q15M PRN; Protocol PRN Reason: per Hypoglycemia Standing Ord. Heparin Sodium (Porcine) (Heparin Sodium,Porcine 5,000 Unit/Ml Vial) 5,000 unit SUBCUT Q8H [facility] Last Admin: 05/08/23 09:00 Dose: 5,000 unit Documented By: BIJAN Ceftriaxone Sodium 2 gm/ (Sodium Chloride) 50 mls @ 100 mls/hr IV Q24H [facility] Last Infusion: 05/07/23 18:34 Dose: Infused Documented By: LAVERNE Insulin Human Lispro (Insulin Lispro 100 Unit/Ml 3 Ml Vial) 0 unit SUBCUT Q6H [facility]; Protocol Last Admin: 05/08/23 05:43 Dose: Not Given Documented By: ALBIN Non-Admin Reason: poc 124; Held per parameter Lactulose (Lactulose 20 Gm/30 Ml Solution) 30 gm PO TID [facility] Last Admin: 05/08/23 09:01 Dose: 30 gm Documented By: BIJAN Lidocaine (Lidocaine 4 % Patch Adh..Patch) 1 patch TRANSDERMA DAILY [facility]; Protocol Last Admin: 05/08/23 09:00 Dose: Not Given Documented By: BIJAN Non-Admin Reason: Patient Refused Melatonin (Melatonin 3 Mg Tablet) 3 mg PO BEDTIME [facility] Last Admin: 05/07/23 21:26 Dose: 3 mg Documented By: ALBIN Midodrine (Midodrine Hcl 5 Mg Tablet) 10 mg PO TID@0600,1200,1800 [facility] Last Admin: 05/08/23 08:57 Dose: 10 mg Documented By: BIJAN Multivitamins/Vitamin C (Multivitamin Tablet) 1 tab PO DAILY [facility] Last Admin: 05/08/23 08:58 Dose: 1 tab Documented By: BIJAN Naltrexone HCl (Naltrexone Hcl 50 Mg Tablet) 50 mg PO DAILY [facility] Last Admin: 05/08/23 09:00 Dose: 50 mg Documented By: BIJAN Nystatin (Nystatin Powder 15 Gm Bottle) 1 appl TOPICAL TID [facility]; Protocol Last Admin: 05/08/23 09:00 Dose: 1 appl Documented By: BIJAN Nystatin (Nystatin Cream 15 Gm Tube) 1 appl TOPICAL BID [facility]; Protocol Last Admin: 05/08/23 09:00 Dose: 1 appl Documented By: BIJAN Rifaximin (Rifaximin 550 Mg Tablet) 550 mg PO BID [facility] Last Admin: 05/08/23 08:57 Dose: 550 mg Documented By: BIJAN Sertraline HCl (Sertraline Hcl 50 Mg Tablet) 50 mg PO DAILY [facility] Last Admin: 05/08/23 08:58 Dose: 50 mg Documented By: BIJAN Sodium Chloride (0.9 % Sodium Chloride Flush 3 Ml Syringe) 3 ml IVFLUSH QSHIFT [facility] Last Admin: 05/08/23 08:56 Dose: 3 ml Documented By: BIJAN Thiamine HCl (Thiamine Hcl 100 Mg Tablet) 100 mg PO DAILY [facility] Last Admin: 05/08/23 08:57 Dose: 100 mg Documented By: BIJAN Labs 05/07/23 08:41 05/07/23 08:41 Labs: Laboratory Results - last 24 hr 05/07/23 05/07/23 05/08/23 11:40 15:57 00:35 POC Glucose 150 H 158 H 135 H Ammonia 05/08/23 05/08/23 05/08/23 05:41 08:52 10:51 POC Glucose 124 H 125 H Ammonia 37 Assessment and Plan (1) Encephalopathy: Status: Acute (2) 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: Status: Acute Plan d9 67yo M from [facility], PMHx of EtOH cirrhosis, chronic indwelling urinary cathter, orthostatic hypotension, GERD, and DM2 sent in for worsening confusion, BCx with GNRs + GPCs admitted for sepsis + bacteremia sepsis due to bacteremia + UTI - BCx 04/29 from [place] grew Proteus mirabilis resistant to TMP-SMX + cipro, BCx here 04/30 negative. Also GPCs on BCx 04/29- not viable for culture per [facility]. - Urology changed catheter 05/07 - lactic acidosis resolved - ceftriaxone 05/01- ascites - paracentesis done 05/01, low SAAG, cytology: Peritoneal fluid (cytology and cell block): Negative for malignant cells. Comment: Examination of monolayer preparation and cell block slide shows occasional benign mesothelial cells, scattered histiocytes, scattered lymphocytes, occasional neutrophils, and proteinaceous material with few red blood cells. - GI following multifactorial encephalopathy - mild hepatic + infection + toxic [medication] - gabapentin held - continue lactulose + rifaximin - Neurology consulted: CT head shows age-related atrophy and microvascular white matter disease - Psychiatry consultation PENNY - resolved after fluids + albumin GERD - PPI orthostatic hypotension, chronic - midodrine DM2 - correction-dose lispro AUD - thiamine, naltrexone mood disorder - sertraline VTE ppx - UFH dispo - eventual return to [facility] In my clinical judgment, the patient requires continued inpatient hospitalization for the following reasons: - IV ABX Total time managing care of this patient today: 35 minutes. Quality Stroke Does the patient have a stroke diagnosis?: No VTE Prior VTE?: No VTE Risk Level:: Medical - moderate - high VTE Device Contraindication: N/A - Device Ordered VTE Drug Contraindication: N/A - Med Ordered
--- NOTE | 2023-05-08 12:40 | MHC.CM.PN ---
Pt is not yet ready for DC, he will go to [facility], anticipate DC 05/09/23.
--- NOTE | 2023-05-08 13:49 | MHC.SLORD ---
Speech Language Pathology Order Status: NET MENDER consult received w/ reason listed as ?upgrade diet. NET MENDER attempted to see patient for clinical swallow eval at bedside. Patient refused. Offered to return later in date and he stated no, becoming increasingly more agitated. NET MENDER to attempt eval tomorrow. This NET MENDER spoke w/ NET MENDER at [facility]. NET MENDER reported patient was only seen by for cognition w/ no concern for dysphagia. At [facility], patient was on regular diet, thin liquids, pills whole in liquid, and indepedent feeding.
--- NOTE | 2023-05-08 15:57 | P.CNPS_ITS ---
History of Present Illness Date of Service: 05/08/23 Chief Complaint: Bacteremia gram negative Reason for Consult: ETOH ?dementia ?depression Requesting physician: Jefferson Gauthier Discussed with referring provider: Yes Sources of Information: patient interviewed and chart reviewed HPI Narrative: Patient is a 67 year old male with past medical history of liver cirrhosis, ascites, diabetes mellitus, chronic indwelling Gordon catheter, GERD, alcohol use disorder presents emergency department from [facility]. Per ER note, Upon review of patient records from [facility], patient has been experiencing increasing confusion and lethargy recent positive blood cultures and urinalysis. Psychiatric consult was placed for: ?dementia ?depression During consult assessment, pt presents with symptoms consistent with delirium. Pt disoriented to person, place or situation; when asked where he was, pt stated, the bathroom in [place] . Pt asked T/W multiple times within a few minutes, who are you? why are you here? . Pt would be reoriented to situation and person but would again ask same questions. Presents with poor attention, disorganized thought content/process, easily distracted. Pt is unable to retain any information given or have a coherent/logical conversation. Pt's underlying cognitive impairment will be able to be assessed once delirium has cleared. Unable to determine depression d/t current mental status. Past Psychiatric History: Unknown Medical Evaluation Reviewed: Yes Review of Systems Review of Systems Yes Unobtainable due to mental status [facility] Medical History 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 Orthostatic hypotension Chronic liver disease Type 2 diabetes mellitus Family History: unknown Social History: . Substance History: ETOH abuse Trauma History: unknown Diagnostics Vital Signs (24Hr): Vital Signs - 24 hr 05/07/23 16:00 05/07/23 19:56 05/07/23 22:34 Temperature 99.2 F 97.2 F Pulse Rate 77 96 Respiratory Rate 16 20 18 Blood Pressure 109/61 94/66 Pulse Oximetry 96 96 Oxygen Delivery Method Room Air Room Air 05/08/23 00:00 05/08/23 00:38 05/08/23 03:28 Temperature 97.4 F 97.4 F 97.3 F Pulse Rate 54 70 69 Respiratory Rate 18 18 19 Blood Pressure 117/56 L 130/58 L Pulse Oximetry 95 99 99 Oxygen Delivery Method Room Air Room Air Room Air 05/08/23 06:02 05/08/23 07:01 05/08/23 10:32 Temperature 97.7 F Pulse Rate 78 Respiratory Rate 18 Blood Pressure 104/62 95/50 L 115/59 L Pulse Oximetry 100 Oxygen Delivery Method Room Air 05/08/23 11:08 Temperature 98.5 F Pulse Rate 86 Respiratory Rate 20 Blood Pressure 120/60 Pulse Oximetry 98 Oxygen Delivery Method Room Air BMI result Body Mass Index 27.9 Labs 05/07/23 08:41 05/07/23 08:41 Labs: Laboratory Results - last 48 hr 05/06/23 05/06/23 05/07/23 17:35 23:06 04:13 WBC RBC Hgb Hct MCV MCH MCHC RDW Plt Count MPV Absolute Nucleated RBC Nucleated RBC % (auto) Sodium Potassium Chloride Carbon Dioxide Anion Gap BUN Creatinine Estim Creat Clear Calc Estimated GFR POC Glucose 114 147 H 121 H Random Glucose Calcium Ammonia 05/07/23 05/07/23 05/07/23 07:19 08:41 08:41 WBC 6.6 RBC 3.52 L Hgb 10.5 L Hct 31.1 L MCV 88.4 MCH 29.8 MCHC 33.8 RDW 16.3 H Plt Count 191 MPV 9.8 Absolute Nucleated RBC 0.000 Nucleated RBC % (auto) 0.0 Sodium 141 Potassium 4.4 Chloride 116 H Carbon Dioxide 18 L Anion Gap 11 L BUN 12 Creatinine 1.16 1.17 Estim Creat Clear Calc 63.2 Estimated GFR POC Glucose 117 H Random Glucose Calcium Ammonia 05/07/23 05/07/23 05/07/23 08:41 08:41 11:40 WBC RBC Hgb Hct MCV MCH MCHC RDW Plt Count MPV Absolute Nucleated RBC Nucleated RBC % (auto) Sodium Potassium Chloride Carbon Dioxide Anion Gap BUN Creatinine Estim Creat Clear Calc 62.6 Estimated GFR > 60 > 60 POC Glucose 150 H Random Glucose 132 H Calcium 9.0 Ammonia 05/07/23 05/08/23 05/08/23 15:57 00:35 05:41 WBC RBC Hgb Hct MCV MCH MCHC RDW Plt Count MPV Absolute Nucleated RBC Nucleated RBC % (auto) Sodium Potassium Chloride Carbon Dioxide Anion Gap BUN Creatinine Estim Creat Clear Calc Estimated GFR POC Glucose 158 H 135 H 124 H Random Glucose Calcium Ammonia 05/08/23 05/08/23 08:52 10:51 WBC RBC Hgb Hct MCV MCH MCHC RDW Plt Count MPV Absolute Nucleated RBC Nucleated RBC % (auto) Sodium Potassium Chloride Carbon Dioxide Anion Gap BUN Creatinine Estim Creat Clear Calc Estimated GFR POC Glucose 125 H Random Glucose Calcium Ammonia 37 Imaging Radiology Impressions: ITS Impressions Abdomen/Pelvis CT 04/30/23 22:22 IMPRESSION: Cirrhosis. Large amount of ascites. Gallstones. [place]gr[place] catheter in the bladder. Small amount of air in the bladder presumably related to Gordon catheter placement. Enlarged prostate gland. Fleischner guidelines were followed. Head CT 05/07/23 11:13 IMPRESSION: There are scattered chronic small vessel ischemic changes within the periventricular white matter. Otherwise unremarkable examination. No evidence of acute territorial infarct or hemorrhage. Mental Status Exam Mental Status Exam Patient Appearance: Well Grooomed Level of Consciousness: Disoriented Patient Behavior: Distractible, Confused and Poor Eye Contact Thought Process: Disoriented and Confusion Thought Content: positive for Disoriented and positive for Disorganized Judgement: Poor Medications Medications Current Medications Acetaminophen (Acetaminophen 325 Mg Tablet) 975 mg PO Q6H PRN PRN Reason: Pain, Mild (Pain Scale 1-3) Last Admin: 05/07/23 21:26 Dose: 975 mg Dextrose (Dextrose 50 % 25 Gm/50 Ml Syringe) 25 gm IVPUSH Q15M PRN; Protocol PRN Reason: per Hypoglycemia Standing Ord. Folic Acid (Folic Acid 1 Mg Tablet) 1 mg PO DAILY [facility] Last Admin: 05/08/23 08:58 Dose: 1 mg Glucose (Glucose Gel 15 Gm Gel..Gram.) 15 gm PO Q15M PRN; Protocol PRN Reason: per Hypoglycemia Standing Ord. Heparin Sodium (Porcine) (Heparin Sodium,Porcine 5,000 Unit/Ml Vial) 5,000 unit SUBCUT Q8H [facility] Last Admin: 05/08/23 09:00 Dose: 5,000 unit Ceftriaxone Sodium 2 gm/ (Sodium Chloride) 50 mls @ 100 mls/hr IV Q24H [facility] Last Infusion: 05/07/23 18:34 Dose: Infused Insulin Human Lispro (Insulin Lispro 100 Unit/Ml 3 Ml Vial) 0 unit SUBCUT Q6H [facility]; Protocol Last Admin: 05/08/23 12:06 Dose: Not Given Lactulose (Lactulose 20 Gm/30 Ml Solution) 30 gm PO TID [facility] Last Admin: 05/08/23 14:56 Dose: 30 gm Lidocaine (Lidocaine 4 % Patch Adh..Patch) 1 patch TRANSDERMA DAILY [facility]; Protocol Last Admin: 05/08/23 09:00 Dose: Not Given Melatonin (Melatonin 3 Mg Tablet) 3 mg PO BEDTIME [facility] Last Admin: 05/07/23 21:26 Dose: 3 mg Midodrine (Midodrine Hcl 5 Mg Tablet) 10 mg PO TID@0600,1200,1800 [facility] Last Admin: 05/08/23 08:57 Dose: 10 mg Multivitamins/Vitamin C (Multivitamin Tablet) 1 tab PO DAILY [facility] Last Admin: 05/08/23 08:58 Dose: 1 tab Naltrexone HCl (Naltrexone Hcl 50 Mg Tablet) 50 mg PO DAILY [facility] Last Admin: 05/08/23 09:00 Dose: 50 mg Nystatin (Nystatin Powder 15 Gm Bottle) 1 appl TOPICAL TID [facility]; Protocol Last Admin: 05/08/23 14:56 Dose: 1 appl Nystatin (Nystatin Cream 15 Gm Tube) 1 appl TOPICAL BID [facility]; Protocol Last Admin: 05/08/23 09:00 Dose: 1 appl Phenazopyridine HCl (Phenazopyridine Hcl 200 Mg Tablet) 200 mg PO TID PRN PRN Reason: dysuria Stop: 05/10/23 11:28 Rifaximin (Rifaximin 550 Mg Tablet) 550 mg PO BID [facility] Last Admin: 05/08/23 08:57 Dose: 550 mg Sertraline HCl (Sertraline Hcl 50 Mg Tablet) 50 mg PO DAILY [facility] Last Admin: 05/08/23 08:58 Dose: 50 mg Sodium Chloride (0.9 % Sodium Chloride Flush 3 Ml Syringe) 3 ml IVFLUSH QSHIFT [facility] Last Admin: 05/08/23 08:56 Dose: 3 ml Thiamine HCl (Thiamine Hcl 100 Mg Tablet) 100 mg PO DAILY [facility] Last Admin: 05/08/23 08:57 Dose: 100 mg Allergies Allergies Allergy/AdvReac Type Severity Reaction Status Date / Time lisinopril Allergy Angioedema Verified 04/30/23 17:28 scallops Allergy Angioedema Verified 04/30/23 17:28 Assessment & Plan Assessment & Plan (1) Delirium: Status: Acute Code(s): R41.0 - Disorientation, unspecified Plan During consult assessment, pt presents with symptoms consistent with delirium. Pt disoriented to person, place or situation; when asked where he was, pt stated, the bathroom in [place] . Pt asked T/W multiple times within a few minutes, who are you? why are you here? . Pt would be reoriented to situation and person but would again ask same questions. Presents with poor attention, disorganized thought content/process, easily distracted. Pt is unable to retain any information given or have a coherent/logical conversation. Pt's underlying cognitive impairment will be able to be assessed once delirium has cleared. Unable to determine depression d/t current mental status. Total time managing care of this patient today _20___ minutes. Patient educated on: other (unable to educate d/t mental status) Informed Consent: does not understand
[2023-05-08 16:11] LABS: Glucose, Whole Blood 143 mg/dL (60-115)
[2023-05-08 18:46] LABS: Anion Gap 14 (12-20); Blood Urea Nitrogen 15 mg/dL (9-16); Calcium 9.2 mg/dL (8.4-10.2); Carbon Dioxide 12 mmol/L (22-29); Chloride 120 mmol/L (96-108); Creatinine Clr Calc Pharmacy 61.6; Estimated Glomerular Filt Rate > 60; Glucose Random 148 mg/dL (60-115); Potassium 4.5 mmol/L (3.3-5.1); Sodium 141 mmol/L (135-145)
[2023-05-08 20:02] LABS: Glucose, Whole Blood 129 mg/dL (60-115)
[2023-05-08] MEDS: Melatonin 3 MG TABLET PO (23:02)
[2023-05-09] VITALS (7 sets, daily range): BP systolic 107–145; BP diastolic 58–92; PULSE 74–89; RESP 16–20; TEMP 36.3–36.7; O2SAT 94–98
[2023-05-09] MEDS: Heparin Sodium,Porcine 5,000 UNIT/ML VIAL 5000 UNIT SUBCUT ×3 (00:58→17:17)
[2023-05-09] MEDS: Midodrine HCl 5 MG TABLET 10 MG PO ×3 (05:59→17:25)
[2023-05-09 07:27] LABS: Glucose, Whole Blood 157 mg/dL (60-115)
[2023-05-09] MEDS: Naltrexone HCl 50 MG TABLET PO (07:51)
[2023-05-09] MEDS: Folic Acid 1 MG TABLET PO (07:51)
[2023-05-09] MEDS: Multivitamin TABLET 1 TAB PO (07:51)
[2023-05-09] MEDS: Thiamine HCL 100 MG TABLET PO (07:51)
[2023-05-09] MEDS: Sertraline HCL 50 MG TABLET PO (07:51)
[2023-05-09] MEDS: rifAXIMin 550 MG TABLET PO ×2 (07:52→20:35)
[2023-05-09] MEDS: Lactulose 20 GM/30 ML SOLUTION 30 GM PO ×2 (07:52→20:48)
[2023-05-09] MEDS: Nystatin Cream 15 GM TUBE 1 APPL TOPICAL (07:53)
[2023-05-09] MEDS: Nystatin Powder 15 GM BOTTLE 1 APPL TOPICAL ×3 (07:53→20:42)
[2023-05-09] MEDS: 0.9 % Sodium Chloride Flush 3 ML SYRINGE IVFLUSH ×3 (08:03→20:46)
[2023-05-09 09:40] LABS: Anion Gap 15 (12-20); Blood Urea Nitrogen 15 mg/dL (9-16); Calcium 8.8 mg/dL (8.4-10.2); Carbon Dioxide 18 mmol/L (22-29); Chloride 115 mmol/L (96-108); Creatinine Clr Calc Pharmacy 53.1; Estimated Glomerular Filt Rate 51; Glucose Random 180 mg/dL (60-115); Potassium 4.6 mmol/L (3.3-5.1); Sodium 143 mmol/L (135-145)
--- NOTE | 2023-05-09 09:46 | HO.PM.IMPN ---
Subjective Subjective Date of Service: 05/09/23 Interval History: More awake today. Oriented to self/place/year but thinks it's November. Doesn't seem to remember me. States urinary pain has improved. Review of Systems Review of Systems: Yes all other systems are reviewed and are negative Physical Exam Vital Signs: Vital Signs: Last Vital Signs Temp 97.9 F 05/09/23 07:45 Pulse 78 05/09/23 07:45 Resp 20 05/09/23 07:45 BP 120/58 L 05/09/23 07:45 Pulse Ox 98 05/09/23 07:45 O2 Del Method Room Air 05/09/23 07:45 O2 Flow Rate 90 05/06/23 20:00 BMI result Body Mass Index 27.9 Gen: in no acute distress HEENT: sclera anicteric, moist mucus membranes Neck: supple Lungs: clear to auscultation bilaterally Heart: regular rate and rhythm, no murmurs Abd: soft, non-tender, non-distended : Gordon draining clear urine Ext: no edema Skin: warm/well-perfused Neuro: alert and oriented to self+place+year, no asterixis Psych: appropriate affect, impaired insight Objective Data Active Medications Acetaminophen (Acetaminophen 325 Mg Tablet) 975 mg PO Q6H PRN PRN Reason: Pain, Mild (Pain Scale 1-3) Last Admin: 05/07/23 21:26 Dose: 975 mg Documented By: ALBIN Dextrose (Dextrose 50 % 25 Gm/50 Ml Syringe) 25 gm IVPUSH Q15M PRN; Protocol PRN Reason: per Hypoglycemia Standing Ord. Folic Acid (Folic Acid 1 Mg Tablet) 1 mg PO DAILY [facility] Last Admin: 05/09/23 07:51 Dose: 1 mg Documented By: BIJAN Glucose (Glucose Gel 15 Gm Gel..Gram.) 15 gm PO Q15M PRN; Protocol PRN Reason: per Hypoglycemia Standing Ord. Heparin Sodium (Porcine) (Heparin Sodium,Porcine 5,000 Unit/Ml Vial) 5,000 unit SUBCUT Q8H [facility] Last Admin: 05/09/23 07:52 Dose: 5,000 unit Documented By: BIJAN Ceftriaxone Sodium 2 gm/ (Sodium Chloride) 50 mls @ 100 mls/hr IV Q24H [facility] Last Admin: 05/08/23 18:00 Dose: Not Given Documented By: HEATH Non-Admin Reason: Patient Refused Insulin Human Lispro (Insulin Lispro 100 Unit/Ml 3 Ml Vial) 0 unit SUBCUT QIDACHS [facility]; Protocol Last Admin: 05/09/23 07:28 Dose: Not Given Documented By: BIJAN Non-Admin Reason: No Insulin Coverage Lactulose (Lactulose 20 Gm/30 Ml Solution) 30 gm PO TID [facility] Last Admin: 05/09/23 07:52 Dose: 30 gm Documented By: BIJAN Lidocaine (Lidocaine 4 % Patch Adh..Patch) 1 patch TRANSDERMA DAILY [facility]; Protocol Last Admin: 05/09/23 09:10 Dose: Not Given Documented By: BIJAN Non-Admin Reason: Patient Refused Melatonin (Melatonin 3 Mg Tablet) 3 mg PO BEDTIME [facility] Last Admin: 05/08/23 23:02 Dose: 3 mg Documented By: ALBIN Midodrine (Midodrine Hcl 5 Mg Tablet) 10 mg PO TID@0600,1200,1800 [facility] Last Admin: 05/09/23 05:59 Dose: 10 mg Documented By: ALBIN Multivitamins/Vitamin C (Multivitamin Tablet) 1 tab PO DAILY [facility] Last Admin: 05/09/23 07:51 Dose: 1 tab Documented By: BIJAN Naltrexone HCl (Naltrexone Hcl 50 Mg Tablet) 50 mg PO DAILY [facility] Last Admin: 05/09/23 07:51 Dose: 50 mg Documented By: BIJAN Nystatin (Nystatin Powder 15 Gm Bottle) 1 appl TOPICAL TID [facility]; Protocol Last Admin: 05/09/23 07:53 Dose: 1 appl Documented By: BIJAN Nystatin (Nystatin Cream 15 Gm Tube) 1 appl TOPICAL BID [facility]; Protocol Last Admin: 05/09/23 07:53 Dose: 1 appl Documented By: BIJAN Phenazopyridine HCl (Phenazopyridine Hcl 200 Mg Tablet) 200 mg PO TID PRN PRN Reason: dysuria Stop: 05/10/23 11:28 Rifaximin (Rifaximin 550 Mg Tablet) 550 mg PO BID [facility] Last Admin: 05/09/23 07:52 Dose: 550 mg Documented By: BIJAN Sertraline HCl (Sertraline Hcl 50 Mg Tablet) 50 mg PO DAILY [facility] Last Admin: 05/09/23 07:51 Dose: 50 mg Documented By: BIJAN Sodium Chloride (0.9 % Sodium Chloride Flush 3 Ml Syringe) 3 ml IVFLUSH QSHIFT [facility] Last Admin: 05/09/23 08:03 Dose: 3 ml Documented By: BIJAN Thiamine HCl (Thiamine Hcl 100 Mg Tablet) 100 mg PO DAILY [facility] Last Admin: 05/09/23 07:51 Dose: 100 mg Documented By: BIJAN Labs 05/07/23 08:41 05/09/23 08:35 Labs: Laboratory Results - last 24 hr 05/08/23 05/08/23 05/08/23 10:51 16:08 18:23 Hold Purple Top Anion Gap 14 Estim Creat Clear Calc 61.6 Estimated GFR > 60 POC Glucose 125 H 143 H Random Glucose 148 H Calcium 9.2 05/08/23 05/09/23 05/09/23 19:59 06:08 07:06 Hold Purple Top SEE NOTE Anion Gap Estim Creat Clear Calc Estimated GFR POC Glucose 129 H 157 H Random Glucose Calcium 05/09/23 08:35 Hold Purple Top Anion Gap 15 Estim Creat Clear Calc 53.1 Estimated GFR 51 POC Glucose Random Glucose 180 H Calcium 8.8 Assessment and Plan (1) Encephalopathy: Status: Acute (2) 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: Status: Acute Plan d10 67yo M from [facility] @ [facility], PMHx of EtOH cirrhosis, chronic indwelling urinary cathter, orthostatic hypotension, GERD, and DM2 sent in for worsening confusion, BCx with GNRs + GPCs admitted for sepsis + bacteremia metabolic acidosis - unclear cause- ?chronic due to cirrhosis. recheck BMP in AM along with lactate and VBG. sepsis due to Gram-negative bacteremia + UTI - BCx 04/29 from [facility] grew Proteus mirabilis resistant to TMP-SMX + cipro, BCx here 04/30 negative. Also GPCs on BCx 04/29- not viable for culture per [facility]. - Urology changed catheter 05/07 - lactic acidosis resolved - ceftriaxone 05/01-3/, can complete course with cefuroxime ascites - paracentesis done 05/01 with low-SAAG ascites, cytology: Peritoneal fluid (cytology and cell block): Negative for malignant cells. Comment: Examination of monolayer preparation and cell block slide shows occasional benign mesothelial cells, scattered histiocytes, scattered lymphocytes, occasional neutrophils, and proteinaceous material with few red blood cells. - GI following and will need outpt follow-up multifactorial encephalopathy - mild hepatic encephalopathy [lactulose + rifaximin] + infection [UTI treated] + toxic [gabapentin held] - Neurology consulted: CT head shows age-related atrophy and microvascular white matter disease - Psychiatry consultation limited by pt's poor mental status. he denies depression or anxiety to me - ultimately, per discussion with his , could mostly be due to EtOH dementia PENNY - resolved after fluids + albumin GERD - PPI chronic orthostatic hypotension - midodrine DM2 - correction-dose lispro AUD - thiamine, naltrexone mood disorder - sertraline VTE ppx - UFH dispo - eventual return to [facility] In my clinical judgment, the patient requires continued inpatient hospitalization for the following reasons: - IV ABX, acidosis Total time managing care of this patient today: 45 minutes. Quality Stroke Does the patient have a stroke diagnosis?: No VTE Prior VTE?: No VTE Risk Level:: Medical - moderate - high VTE Device Contraindication: N/A - Device Ordered VTE Drug Contraindication: N/A - Med Ordered
[2023-05-09 11:19] LABS: Glucose, Whole Blood 159 mg/dL (60-115)
[2023-05-09] MEDS: Phenazopyridine HCL 200 MG TABLET PO (13:29)
--- NOTE | 2023-05-09 14:05 | MHC.SLORD ---
Speech Language Pathology Order Status: Speech consult requested 05/08/23 to ? advance diet. CANVAS MARKER yesterday unable to assess patient due to behavior/cooperation issues, with MD advancing diet to regular/thin (least restrictive). CANVAS MARKER today observed patient at lunch eating food brought in from local restaurant. Patient evidenced no difficulties. CANVAS MARKER will discontinue swallow consult.
[2023-05-09] MEDS: Lactated Ringers 1,000 ML 125 ML IVCONT (14:24)
[2023-05-09 16:28] LABS: Glucose, Whole Blood 175 mg/dL (60-115)
[2023-05-09] MEDS: cefTRIAXone sodium 2 GM in 0.9 % Sodium Chloride 50 ML IV (17:33)
[2023-05-09 20:17] LABS: Glucose, Whole Blood 149 mg/dL (60-115)
[2023-05-09] MEDS: Melatonin 3 MG TABLET PO (20:35)
[2023-05-10 03:51] VITALS: BP 115/69; PULSE 83; RESP 20; TEMP 36.3; O2SAT 96
[2023-05-10] MEDS: Midodrine HCl 5 MG TABLET 10 MG PO ×3 (05:50→16:05)
[2023-05-10 07:45] LABS: VBG Base Excess -9.8 mmol/L; VBG HCO3 15 mmol/L (22-26); VBG pCO2 31 mmHg; VBG pH 7.29 (7.32-7.43); VBG pO2 76 mmHg
[2023-05-10 07:45] LABS: Venous Blood Gas Refer to POC result
[2023-05-10 07:50] VITALS: BP 122/71; PULSE 97; RESP 20; TEMP 36.7; O2SAT 95
[2023-05-10 07:55] LABS: Alanine Aminotransferase 21 U/L (0-40); Albumin Level 2.5 g/dL (3.5-5.0); Alkaline Phosphatase 105 U/L (39-117); Anion Gap 14 (12-20); Aspartate Amino Transferase 32 U/L (5-37); Bilirubin Total 0.4 mg/dL (0.0-1.0); Blood Urea Nitrogen 14 mg/dL (9-16); Calcium 9.3 mg/dL (8.4-10.2); Carbon Dioxide 16 mmol/L (22-29); Chloride 118 mmol/L (96-108); Creatinine Clr Calc Pharmacy 54.3; Estimated Glomerular Filt Rate 52; Glucose Random 181 mg/dL (60-115); Magnesium 1.7 mg/dL (1.6-2.6); Potassium 4.2 mmol/L (3.3-5.1); Sodium 144 mmol/L (135-145); Total Protein 6.2 g/dL (6.5-8.0)
[2023-05-10 08:01] LABS: Glucose, Whole Blood 191 mg/dL (60-115)
[2023-05-10 08:02] LABS: Lactic Acid 3.5 mmol/L (0.5-2.0)
[2023-05-10 08:13] LABS: MANUAL DIFF FLAG NO
[2023-05-10 08:16] LABS: Basophils Absolute Auto 0.1 X10*3/uL (0.0-0.2); Basophils Percent Auto 1.7 % (0-2); Eosinophils Absolute Auto 0.2 X10*3/uL (0.0-0.4); Eosinophils Percent Auto 3.2 % (0-4); Hematocrit 33.9 % (42.0-52.0); Hemoglobin 11.2 g/dl (14.0-18.0); Imm Gran Abs Auto 0.02 X10*3/uL (0.00-0.03); Imm Gran Pct Auto 0.3 % (0.0-0.4); Lymphocytes Absolute Auto 2.1 X10*3/uL (1.2-4.9); Lymphocytes Percent Auto 30.2 % (20-40); Mean Corpuscular Hemoglobin 29.5 pg (27.0-33.0); Mean Corpuscular Volume 89.2 fL (80.0-98.0); Mean Platelet Volume 9.9 fL (9.4-12.4); Monocytes Absolute Auto 0.6 X10*3/uL (0.1-1.2); Monocytes Percent Auto 8.3 % (2-11); Neutrophils Absolute Auto 3.9 x10*3/uL (2.0-8.3); Neutrophils Percent Auto 56.3 % (45-73); Platelet Count 205 X10*3/uL (160-400); White Blood Count 6.9 X10*3/uL (4.8-10.8)
[2023-05-10] MEDS: rifAXIMin 550 MG TABLET PO ×2 (08:27→21:29)
[2023-05-10] MEDS: Sertraline HCL 50 MG TABLET PO (08:27)
[2023-05-10] MEDS: 0.9 % Sodium Chloride Flush 3 ML SYRINGE IVFLUSH ×2 (08:27→16:08)
[2023-05-10] MEDS: Naltrexone HCl 50 MG TABLET PO (08:27)
[2023-05-10] MEDS: Heparin Sodium,Porcine 5,000 UNIT/ML VIAL 5000 UNIT SUBCUT ×2 (08:28→16:06)
[2023-05-10] MEDS: Lactulose 20 GM/30 ML SOLUTION 30 GM PO ×2 (08:28→16:05)
[2023-05-10] MEDS: Lidocaine 4 % Patch ADH..PATCH 1 PATCH TRANSDERMA (08:28)
[2023-05-10] MEDS: Multivitamin TABLET 1 TAB PO (08:28)
[2023-05-10] MEDS: Thiamine HCL 100 MG TABLET PO (08:28)
[2023-05-10] MEDS: Folic Acid 1 MG TABLET PO (08:28)
[2023-05-10] MEDS: Nystatin Cream 15 GM TUBE 1 APPL TOPICAL ×2 (08:30→22:00)
[2023-05-10] MEDS: Nystatin Powder 15 GM BOTTLE 1 APPL TOPICAL ×3 (08:30→22:00)
[2023-05-10 09:35] LABS: Reflex Lactate? Lactic Acid Added
[2023-05-10 10:41] VITALS: BP 126/70; PULSE 81; RESP 20; TEMP 36.2; O2SAT 98
[2023-05-10 10:42] LABS: Glucose, Whole Blood 184 mg/dL (60-115)
--- NOTE | 2023-05-10 11:23 | PC.NURSE ---
Assumed care at approximately 0700. Per report from nocturnal RN Prashanth, garcia was changed overnight and flushed multiple times with no change in urine output. Bladder scanned at 0830, showing 300cc; pt reporting bladder distention as well; MD made aware of this. Critical lactic of 3.5 and then 4.0; MD aware. Pt continues to be oliguric; MD aware and said will report to bedside. VSS. safety maintained throughout. Report given to oncoming RENARD Viveros at 1100 who will resume the plan of care for this patient.
[2023-05-10 11:52] LABS: Reflex Lactate? 2 Y
--- NOTE | 2023-05-10 12:36 | MHC.CM.PN ---
Pt has not yet been medically cleared for DC, he requires ongoing hospitalization for IV ABX and acidosis. CM to follow and assist with DC plan of pt. returning to [facility].
[2023-05-10 12:45] LABS: ~Lactic Acid-LAB USE ONLY 2.4 mmol/L (0.5-2.0)
[2023-05-10 16:00] VITALS: BP 124/68; PULSE 75; RESP 19; TEMP 36.7; O2SAT 96
[2023-05-10] MEDS: cefTRIAXone sodium 2 GM in 0.9 % Sodium Chloride 50 ML IV (16:06)
[2023-05-10 16:35] LABS: Glucose, Whole Blood 173 mg/dL (60-115)
--- NOTE | 2023-05-10 17:30 | HO.PM.IMPN ---
Subjective Subjective Date of Service: 05/10/23 Interval History: No acute issues overnight. Remains confused Review of Systems Denies chest pain Denies shortness of breath Denies nausea vomiting diarrhea Denies fever chills Physical Exam Vital Signs: Vital Signs: Last Vital Signs Temp 98.1 F 05/10/23 16:00 Pulse 75 05/10/23 16:00 Resp 19 05/10/23 16:00 BP 124/68 05/10/23 16:00 Pulse Ox 96 05/10/23 16:00 O2 Del Method Room Air 05/10/23 16:00 O2 Flow Rate 90 05/06/23 20:00 BMI result Body Mass Index 27.9 Const: Other: Awake alert no acute distress Resp: Other: Clear to auscultation bilaterally no rales rhonchi wheezes Cardio: Other: No S4; positive S1-S2; no S3 murmurs rubs or GI: Other: Soft nontender nondistended normoactive bowel sounds Extrem: Other: No edema bilaterally Objective Data Active Medications Acetaminophen (Acetaminophen 325 Mg Tablet) 975 mg PO Q6H PRN PRN Reason: Pain, Mild (Pain Scale 1-3) Last Admin: 05/07/23 21:26 Dose: 975 mg Documented By: ALBIN Dextrose (Dextrose 50 % 25 Gm/50 Ml Syringe) 25 gm IVPUSH Q15M PRN; Protocol PRN Reason: per Hypoglycemia Standing Ord. Folic Acid (Folic Acid 1 Mg Tablet) 1 mg PO DAILY [facility] Last Admin: 05/10/23 08:28 Dose: 1 mg Documented By: ROSALIE Glucose (Glucose Gel 15 Gm Gel..Gram.) 15 gm PO Q15M PRN; Protocol PRN Reason: per Hypoglycemia Standing Ord. Heparin Sodium (Porcine) (Heparin Sodium,Porcine 5,000 Unit/Ml Vial) 5,000 unit SUBCUT Q8H [facility] Last Admin: 05/10/23 16:06 Dose: 5,000 unit Documented By: NORI Ceftriaxone Sodium 2 gm/ (Sodium Chloride) 50 mls @ 100 mls/hr IV Q24H [facility] Last Infusion: 05/10/23 16:40 Dose: Infused Documented By: NORI Insulin Human Lispro (Insulin Lispro 100 Unit/Ml 3 Ml Vial) 0 unit SUBCUT QIDACHS [facility]; Protocol Last Admin: 05/10/23 16:14 Dose: Not Given Documented By: NORI Non-Admin Reason: No Insulin Coverage Lactulose (Lactulose 20 Gm/30 Ml Solution) 30 gm PO TID [facility] Last Admin: 05/10/23 16:05 Dose: 30 gm Documented By: NORI Lidocaine (Lidocaine 4 % Patch Adh..Patch) 1 patch TRANSDERMA DAILY [facility]; Protocol Last Admin: 05/10/23 08:28 Dose: 1 patch Documented By: ROSALIE Melatonin (Melatonin 3 Mg Tablet) 3 mg PO BEDTIME [facility] Last Admin: 05/09/23 20:35 Dose: 3 mg Documented By: SYLVESTER Midodrine (Midodrine Hcl 5 Mg Tablet) 10 mg PO TID@0600,1200,1800 [facility] Last Admin: 05/10/23 16:05 Dose: 10 mg Documented By: NORI Multivitamins/Vitamin C (Multivitamin Tablet) 1 tab PO DAILY [facility] Last Admin: 05/10/23 08:28 Dose: 1 tab Documented By: ROSALIE Naltrexone HCl (Naltrexone Hcl 50 Mg Tablet) 50 mg PO DAILY [facility] Last Admin: 05/10/23 08:27 Dose: 50 mg Documented By: ROSALIE Nystatin (Nystatin Powder 15 Gm Bottle) 1 appl TOPICAL TID [facility]; Protocol Last Admin: 05/10/23 16:16 Dose: 1 appl Documented By: NORI Nystatin (Nystatin Cream 15 Gm Tube) 1 appl TOPICAL BID [facility]; Protocol Last Admin: 05/10/23 08:30 Dose: 1 appl Documented By: ROSALIE Rifaximin (Rifaximin 550 Mg Tablet) 550 mg PO BID [facility] Last Admin: 05/10/23 08:27 Dose: 550 mg Documented By: ROSALIE Sertraline HCl (Sertraline Hcl 50 Mg Tablet) 50 mg PO DAILY [facility] Last Admin: 05/10/23 08:27 Dose: 50 mg Documented By: ROSALIE Sodium Chloride (0.9 % Sodium Chloride Flush 3 Ml Syringe) 3 ml IVFLUSH QSHIFT [facility] Last Admin: 05/10/23 16:08 Dose: 3 ml Documented By: NORI Thiamine HCl (Thiamine Hcl 100 Mg Tablet) 100 mg PO DAILY [facility] Last Admin: 05/10/23 08:28 Dose: 100 mg Documented By: ROSALIE Labs 05/10/23 Unknown 05/10/23 07:32 Labs: Laboratory Results - last 24 hr 05/09/23 05/10/23 05/10/23 20:14 07:31 07:32 MCV MCH MCHC RDW Plt Count MPV Immature Gran % (Auto) Neut % (Auto) Lymph % (Auto) [place] % (Auto) Eos % (Auto) Baso % (Auto) Lymph # (Auto) [place] # (Auto) Eos # (Auto) Baso # (Auto) Abs Immat Gran (auto) Absolute Neuts (auto) Absolute Nucleated RBC Nucleated RBC % (auto) Hold Purple Top SEE NOTE VBG pH VBG pCO2 VBG pO2 VBG HCO3 VBG O2 Saturation VBG Base Excess Anion Gap 14 Estim Creat Clear Calc 54.3 Estimated GFR 52 POC Glucose 149 H Random Glucose 181 H Lactic Acid 3.5 H* Lactic Acid F/U @ 2Hr Lactic Acid F/U @ 4Hr Calcium 9.3 Magnesium 1.7 Total Bilirubin 0.4 AST 32 ALT 21 Alkaline Phosphatase 105 Total Protein 6.2 L Albumin 2.5 L 05/10/23 05/10/23 05/10/23 07:39 07:52 09:47 MCV MCH MCHC RDW Plt Count MPV Immature Gran % (Auto) Neut % (Auto) Lymph % (Auto) [place] % (Auto) Eos % (Auto) Baso % (Auto) Lymph # (Auto) [place] # (Auto) Eos # (Auto) Baso # (Auto) Abs Immat Gran (auto) Absolute Neuts (auto) Absolute Nucleated RBC Nucleated RBC % (auto) Hold Purple Top VBG pH 7.29 L VBG pCO2 31 VBG pO2 76 VBG HCO3 15 L VBG O2 Saturation 93.0 VBG Base Excess -9.8 Anion Gap Estim Creat Clear Calc Estimated GFR POC Glucose 191 H Random Glucose Lactic Acid Lactic Acid F/U @ 2Hr 4.0 H* Lactic Acid F/U @ 4Hr Calcium Magnesium Total Bilirubin AST ALT Alkaline Phosphatase Total Protein Albumin 05/10/23 05/10/23 05/10/23 10:32 12:11 15:37 MCV MCH MCHC RDW Plt Count MPV Immature Gran % (Auto) Neut % (Auto) Lymph % (Auto) [place] % (Auto) Eos % (Auto) Baso % (Auto) Lymph # (Auto) [place] # (Auto) Eos # (Auto) Baso # (Auto) Abs Immat Gran (auto) Absolute Neuts (auto) Absolute Nucleated RBC Nucleated RBC % (auto) Hold Purple Top VBG pH VBG pCO2 VBG pO2 VBG HCO3 VBG O2 Saturation VBG Base Excess Anion Gap Estim Creat Clear Calc Estimated GFR POC Glucose 184 H 173 H Random Glucose Lactic Acid Lactic Acid F/U @ 2Hr Lactic Acid F/U @ 4Hr 2.4 H* Calcium Magnesium Total Bilirubin AST ALT Alkaline Phosphatase Total Protein Albumin 05/10/23 Unknown MCV 89.2 MCH 29.5 MCHC 33.0 RDW 17.0 H Plt Count 205 MPV 9.9 Immature Gran % (Auto) 0.3 Neut % (Auto) 56.3 Lymph % (Auto) 30.2 [place] % (Auto) 8.3 Eos % (Auto) 3.2 Baso % (Auto) 1.7 Lymph # (Auto) 2.1 [place] # (Auto) 0.6 Eos # (Auto) 0.2 Baso # (Auto) 0.1 Abs Immat Gran (auto) 0.02 Absolute Neuts (auto) 3.9 Absolute Nucleated RBC 0.000 Nucleated RBC % (auto) 0.0 Hold Purple Top VBG pH VBG pCO2 VBG pO2 VBG HCO3 VBG O2 Saturation VBG Base Excess Anion Gap Estim Creat Clear Calc Estimated GFR POC Glucose Random Glucose Lactic Acid Lactic Acid F/U @ 2Hr Lactic Acid F/U @ 4Hr Calcium Magnesium Total Bilirubin AST ALT Alkaline Phosphatase Total Protein Albumin Assessment and Plan (1) 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: Status: Acute (2) Type 2 diabetes mellitus: Status: Acute Plan 67yo M from [facility], PMHx of EtOH cirrhosis, chronic indwelling urinary cathter, orthostatic hypotension, GERD, and DM2;sent in for worsening confusion, BCx with GNRs + GPCs admitted for sepsis + bacteremia 1.Metabolic acidosis - lactic acid trending downward; likely secondary to chronic liver disease -follow renals/divalents 2.Sepsis due to Gram-negative bacteremia/UTI - BCx 04/29 from [facility] grew Proteus mirabilis resistant to TMP-SMX + cipro, BCx here 04/30 negative. Also GPCs on BCx 04/29- not viable for culture per [facility]. - Urology changed catheter 05/07 -ceftriaxone 05/01-05/12, can complete course with cefuroxime 3.Ascites - paracentesis done 05/01 ... Fluid negative after 5 days 4.Multifactorial encephalopathy - combination of alcohol-related dementia and sepsis -conservative treatment -follow clinically 5.DM2 - correction-dose lispro -adjust as indicated Lovenox Full code In my clinical judgment, the patient requires continued inpatient hospitalization for the following reasons: - IV ABX, acidosis Quality Stroke Does the patient have a stroke diagnosis?: No VTE Prior VTE?: No VTE Risk Level:: Medical - moderate - high VTE Device Contraindication: N/A - Device Ordered VTE Drug Contraindication: N/A - Med Ordered
[2023-05-10 19:23] VITALS: BP 122/60; PULSE 72; RESP 18; TEMP 36.6; O2SAT 95
[2023-05-10 19:53] LABS: Glucose, Whole Blood 169 mg/dL (60-115)
[2023-05-10] MEDS: Acetaminophen 325 MG TABLET 975 MG PO (21:29)
[2023-05-10] MEDS: Melatonin 3 MG TABLET PO (21:29)
[2023-05-10 23:24] VITALS: BP 129/59; PULSE 83; RESP 18; TEMP 36.1; O2SAT 100
[2023-05-11 03:14] VITALS: BP 100/66; PULSE 83; RESP 18; TEMP 36.3
[2023-05-11] MEDS: Midodrine HCl 5 MG TABLET 10 MG PO ×3 (05:37→17:58)
[2023-05-11 07:23] LABS: Glucose, Whole Blood 108 mg/dL (60-115)
[2023-05-11 08:00] VITALS: BP 103/62; PULSE 75; RESP 17; TEMP 37.3; O2SAT 96
[2023-05-11] MEDS: Naltrexone HCl 50 MG TABLET PO (09:45)
[2023-05-11] MEDS: Thiamine HCL 100 MG TABLET PO (09:45)
[2023-05-11] MEDS: Folic Acid 1 MG TABLET PO (09:45)
[2023-05-11] MEDS: Heparin Sodium,Porcine 5,000 UNIT/ML VIAL 5000 UNIT SUBCUT ×2 (09:45→17:55)
[2023-05-11] MEDS: 0.9 % Sodium Chloride Flush 3 ML SYRINGE IVFLUSH ×4 (09:45→23:40)
[2023-05-11] MEDS: Multivitamin TABLET 1 TAB PO (09:45)
[2023-05-11] MEDS: Sertraline HCL 50 MG TABLET PO (09:45)
[2023-05-11] MEDS: Lactulose 20 GM/30 ML SOLUTION 30 GM PO ×3 (09:46→20:37)
[2023-05-11] MEDS: Nystatin Cream 15 GM TUBE 1 APPL TOPICAL ×2 (09:57→20:37)
[2023-05-11] MEDS: Nystatin Powder 15 GM BOTTLE 1 APPL TOPICAL ×2 (09:57→20:37)
[2023-05-11 10:41] LABS: MANUAL DIFF FLAG NO
[2023-05-11 10:45] LABS: Basophils Absolute Auto 0.1 X10*3/uL (0.0-0.2); Eosinophils Absolute Auto 0.2 X10*3/uL (0.0-0.4); Eosinophils Percent Auto 3.1 % (0-4); Hematocrit 37.5 % (42.0-52.0); Hemoglobin 11.8 g/dl (14.0-18.0); Imm Gran Abs Auto 0.03 X10*3/uL (0.00-0.03); Imm Gran Pct Auto 0.5 % (0.0-0.4); Lymphocytes Absolute Auto 2.4 X10*3/uL (1.2-4.9); Lymphocytes Percent Auto 37.1 % (20-40); Mean Corpuscular HGB Conc 31.5 g/dl (31.0-36.0); Mean Corpuscular Hemoglobin 29.1 pg (27.0-33.0); Mean Corpuscular Volume 92.4 fL (80.0-98.0); Mean Platelet Volume 10.1 fL (9.4-12.4); Monocytes Absolute Auto 0.5 X10*3/uL (0.1-1.2); Monocytes Percent Auto 8.2 % (2-11); Neutrophils Absolute Auto 3.1 x10*3/uL (2.0-8.3); Neutrophils Percent Auto 49.1 % (45-73); Platelet Count 188 X10*3/uL (160-400); Red Blood Count 4.06 X10*6/uL (4.60-5.80); Red Cell Distribution Width 17.2 % (11.0-16.0); White Blood Count 6.4 X10*3/uL (4.8-10.8)
[2023-05-11 10:59] LABS: Alanine Aminotransferase 20 U/L (0-40); Albumin Level 2.4 g/dL (3.5-5.0); Alkaline Phosphatase 100 U/L (39-117); Anion Gap 14 (12-20); Aspartate Amino Transferase 30 U/L (5-37); Bilirubin Total 0.4 mg/dL (0.0-1.0); Blood Urea Nitrogen 15 mg/dL (9-16); Calcium 9.4 mg/dL (8.4-10.2); Carbon Dioxide 15 mmol/L (22-29); Chloride 121 mmol/L (96-108); Creatinine Clr Calc Pharmacy 55.1; Estimated Glomerular Filt Rate 53; Glucose Fasting 148 mg/dL (60-99); Sodium 145 mmol/L (135-145); Total Protein 6.1 g/dL (6.5-8.0)
[2023-05-11 12:00] VITALS: BP 86/64; PULSE 75; RESP 16; TEMP 36.6; O2SAT 99
[2023-05-11 12:12] LABS: Glucose, Whole Blood 139 mg/dL (60-115)
--- NOTE | 2023-05-11 14:13 | P.PNIM_ITS ---
Subjective Subjective Date of Service: 05/11/23 Interval History: No acute issues overnight. Pleasantly confused Review of Systems Denies chest pain Denies shortness of breath Denies nausea vomiting diarrhea Denies fever chills Physical Exam 2 Vital Signs: Vital Signs: Last Vital Signs Temp 97.9 F 05/11/23 12:00 Pulse 75 05/11/23 12:00 Resp 16 05/11/23 12:00 BP 86/64 L 05/11/23 12:00 Pulse Ox 99 05/11/23 12:00 O2 Del Method Room Air, [place] [facility] Nasal Cannula 05/11/23 12:00 O2 Flow Rate 90 05/06/23 20:00 BMI result Body Mass Index 27.9 Const: Other: Awake alert no acute distress Resp: Other: Clear to auscultation bilaterally no rales rhonchi wheezes Cardio: Other: No S4; positive S1-S2; no S3 murmurs rubs or GI: Other: Soft nontender nondistended normoactive bowel sounds Extrem: Other: No edema bilaterally Objective Data Active Medications Acetaminophen (Acetaminophen 325 Mg Tablet) 975 mg PO Q6H PRN PRN Reason: Pain, Mild (Pain Scale 1-3) Last Admin: 05/10/23 21:29 Dose: 975 mg Documented By: FLORIN Dextrose (Dextrose 50 % 25 Gm/50 Ml Syringe) 25 gm IVPUSH Q15M PRN; Protocol PRN Reason: per Hypoglycemia Standing Ord. Folic Acid (Folic Acid 1 Mg Tablet) 1 mg PO DAILY [facility] Last Admin: 05/11/23 09:45 Dose: 1 mg Documented By: BRENNAN Glucose (Glucose Gel 15 Gm Gel..Gram.) 15 gm PO Q15M PRN; Protocol PRN Reason: per Hypoglycemia Standing Ord. Heparin Sodium (Porcine) (Heparin Sodium,Porcine 5,000 Unit/Ml Vial) 5,000 unit SUBCUT Q8H [facility] Last Admin: 05/11/23 09:45 Dose: 5,000 unit Documented By: BRENNAN Ceftriaxone Sodium 2 gm/ (Sodium Chloride) 50 mls @ 100 mls/hr IV Q24H [facility] Last Infusion: 05/10/23 16:40 Dose: Infused Documented By: NORI Insulin Human Lispro (Insulin Lispro 100 Unit/Ml 3 Ml Vial) 0 unit SUBCUT QIDACHS [facility]; Protocol Last Admin: 05/11/23 12:38 Dose: Not Given Documented By: BRENNAN Non-Admin Reason: No Insulin Coverage Comments: per sliding scale Lactulose (Lactulose 20 Gm/30 Ml Solution) 30 gm PO TID [facility] Last Admin: 05/11/23 09:46 Dose: 30 gm Documented By: BRENNAN Lidocaine (Lidocaine 4 % Patch Adh..Patch) 1 patch TRANSDERMA DAILY [facility]; Protocol Last Admin: 05/11/23 09:57 Dose: Not Given Documented By: BRENNAN Non-Admin Reason: Patient Refused Melatonin (Melatonin 3 Mg Tablet) 3 mg PO BEDTIME [facility] Last Admin: 05/10/23 21:29 Dose: 3 mg Documented By: FLORIN Midodrine (Midodrine Hcl 5 Mg Tablet) 10 mg PO TID@0600,1200,1800 [facility] Last Admin: 05/11/23 12:41 Dose: 10 mg Documented By: BRENNAN Multivitamins/Vitamin C (Multivitamin Tablet) 1 tab PO DAILY [facility] Last Admin: 05/11/23 09:45 Dose: 1 tab Documented By: BRENNAN Naltrexone HCl (Naltrexone Hcl 50 Mg Tablet) 50 mg PO DAILY [facility] Last Admin: 05/11/23 09:45 Dose: 50 mg Documented By: BRENNAN Nystatin (Nystatin Powder 15 Gm Bottle) 1 appl TOPICAL TID [facility]; Protocol Last Admin: 05/11/23 09:57 Dose: 1 appl Documented By: BRENNAN Nystatin (Nystatin Cream 15 Gm Tube) 1 appl TOPICAL BID [facility]; Protocol Last Admin: 05/11/23 09:57 Dose: 1 appl Documented By: BRENNAN Sertraline HCl (Sertraline Hcl 50 Mg Tablet) 50 mg PO DAILY [facility] Last Admin: 05/11/23 09:45 Dose: 50 mg Documented By: BRENNAN Sodium Chloride (0.9 % Sodium Chloride Flush 3 Ml Syringe) 3 ml IVFLUSH QSHIFT [facility] Last Admin: 05/11/23 09:45 Dose: 3 ml Documented By: BRENNAN Thiamine HCl (Thiamine Hcl 100 Mg Tablet) 100 mg PO DAILY [facility] Last Admin: 05/11/23 09:45 Dose: 100 mg Documented By: BRENNAN Labs 05/11/23 10:24 03/02/24 10:24 Labs: Laboratory Results - last 24 hr 05/10/23 05/10/23 05/11/23 15:37 19:48 07:19 MCV MCH MCHC RDW Plt Count MPV Immature Gran % (Auto) Neut % (Auto) Lymph % (Auto) [place] % (Auto) Eos % (Auto) Baso % (Auto) Lymph # (Auto) [place] # (Auto) Eos # (Auto) Baso # (Auto) Abs Immat Gran (auto) Absolute Neuts (auto) Absolute Nucleated RBC Nucleated RBC % (auto) Anion Gap Estim Creat Clear Calc Estimated GFR POC Glucose 173 H 169 H 108 Fasting Glucose Calcium Total Bilirubin AST ALT Alkaline Phosphatase Total Protein Albumin 05/11/23 05/11/23 10:24 12:00 MCV 92.4 MCH 29.1 MCHC 31.5 RDW 17.2 H Plt Count 188 MPV 10.1 Immature Gran % (Auto) 0.5 H Neut % (Auto) 49.1 Lymph % (Auto) 37.1 [place] % (Auto) 8.2 Eos % (Auto) 3.1 Baso % (Auto) 2.0 Lymph # (Auto) 2.4 [place] # (Auto) 0.5 Eos # (Auto) 0.2 Baso # (Auto) 0.1 Abs Immat Gran (auto) 0.03 Absolute Neuts (auto) 3.1 Absolute Nucleated RBC 0.000 Nucleated RBC % (auto) 0.0 Anion Gap 14 Estim Creat Clear Calc 55.1 Estimated GFR 53 POC Glucose 139 H Fasting Glucose 148 H Calcium 9.4 Total Bilirubin 0.4 AST 30 ALT 20 Alkaline Phosphatase 100 Total Protein 6.1 L Albumin 2.4 L Microbiology Microbiology Results: Microbiology 05/10/23 09:47 Blood Culture - Preliminary Blood - Venous No growth after 24 hours. 05/10/23 09:47 Blood Culture - Preliminary Blood - Venous No growth after 24 hours. Assessment and Plan (1) Chronic liver disease: Status: Acute Plan 67yo M from [facility], PMHx of EtOH cirrhosis, chronic indwelling urinary cathter, orthostatic hypotension, GERD, and DM2;sent in for worsening confusion, BCx with GNRs + GPCs admitted for sepsis + bacteremia 1.Metabolic acidosis - lactic acid trending downward; likely secondary to chronic liver disease -will add bicarb t.i.d. -follow renals/divalents 2.Sepsis due to Gram-negative bacteremia/UTI - BCx 04/29 from [facility] grew Proteus mirabilis resistant to TMP-SMX + cipro, BCx here 04/30 negative. Also GPCs on BCx 04/29- not viable for culture per [facility]. - Urology changed catheter 05/07 -ceftriaxone 05/01-05/12, can complete course with cefuroxime 3.Ascites - paracentesis done 05/01 ... Fluid negative after 5 days 4.Multifactorial encephalopathy - combination of alcohol-related dementia and sepsis -conservative treatment -follow clinically 5.DM2 - correction-dose lispro -adjust as indicated Lovenox Full code In my clinical judgment, the patient requires continued inpatient hospitalization for the following reasons: - IV ABX, acidosis Quality Stroke Does the patient have a stroke diagnosis?: No VTE Prior VTE?: No VTE Risk Level:: Medical - moderate - high VTE Device Contraindication: N/A - Device Ordered VTE Drug Contraindication: N/A - Med Ordered
[2023-05-11] MEDS: Sodium Bicarbonate 650 MG TABLET PO ×2 (14:54→20:37)
[2023-05-11] MEDS: Lactated Ringers 1,000 ML 100 ML IVCONT (14:54)
[2023-05-11 16:00] VITALS: BP 112/64; PULSE 90; RESP 20; TEMP 36.3; O2SAT 98
[2023-05-11 16:33] LABS: Glucose, Whole Blood 157 mg/dL (60-115)
[2023-05-11] MEDS: cefTRIAXone sodium 2 GM in 0.9 % Sodium Chloride 50 ML IV (17:55)
[2023-05-11 19:59] VITALS: BP 122/71; PULSE 82; RESP 17; TEMP 36.6; O2SAT 98
[2023-05-11] MEDS: Melatonin 3 MG TABLET PO (20:37)
[2023-05-11 21:19] LABS: Glucose, Whole Blood 193 mg/dL (60-115)
[2023-05-11 23:05] VITALS: BP 123/75; PULSE 76; RESP 16; TEMP 36.7; O2SAT 97
[2023-05-12] MEDS: Lactated Ringers 1,000 ML 100 ML IVCONT ×3 (01:12→21:27)
[2023-05-12 03:24] VITALS: BP 159/67; PULSE 102; RESP 18; TEMP 36.4; O2SAT 98
[2023-05-12] MEDS: Midodrine HCl 5 MG TABLET 10 MG PO ×3 (05:49→18:15)
[2023-05-12 07:31] LABS: Alanine Aminotransferase 19 U/L (0-40); Albumin Level 2.3 g/dL (3.5-5.0); Alkaline Phosphatase 101 U/L (39-117); Anion Gap 15 (12-20); Aspartate Amino Transferase 32 U/L (5-37); Bilirubin Total 0.4 mg/dL (0.0-1.0); Blood Urea Nitrogen 16 mg/dL (9-16); Calcium 9.2 mg/dL (8.4-10.2); Carbon Dioxide 17 mmol/L (22-29); Chloride 117 mmol/L (96-108); Creatinine Clr Calc Pharmacy 60.1; Estimated Glomerular Filt Rate 59; Glucose Fasting 147 mg/dL (60-99); Potassium 5.1 mmol/L (3.3-5.1); Sodium 144 mmol/L (135-145); Total Protein 6.1 g/dL (6.5-8.0)
[2023-05-12 07:32] LABS: Glucose, Whole Blood 104 mg/dL (60-115)
[2023-05-12 08:00] VITALS: BP 120/57; PULSE 79; RESP 16; TEMP 36.6; O2SAT 93
[2023-05-12] MEDS: Naltrexone HCl 50 MG TABLET PO (08:20)
[2023-05-12] MEDS: Heparin Sodium,Porcine 5,000 UNIT/ML VIAL 5000 UNIT SUBCUT ×2 (08:20→16:49)
[2023-05-12] MEDS: Sodium Bicarbonate 650 MG TABLET PO ×3 (08:20→21:31)
[2023-05-12] MEDS: Folic Acid 1 MG TABLET PO (08:20)
[2023-05-12] MEDS: Sertraline HCL 50 MG TABLET PO (08:20)
[2023-05-12] MEDS: Multivitamin TABLET 1 TAB PO (08:20)
[2023-05-12] MEDS: Thiamine HCL 100 MG TABLET PO (08:20)
[2023-05-12] MEDS: Lactulose 20 GM/30 ML SOLUTION 30 GM PO ×3 (08:21→21:27)
[2023-05-12 08:22] LABS: Glucose, Whole Blood 94 mg/dL (60-115)
[2023-05-12] MEDS: Lidocaine 4 % Patch ADH..PATCH 1 PATCH TRANSDERMA (08:23)
[2023-05-12] MEDS: Nystatin Powder 15 GM BOTTLE 1 APPL TOPICAL ×3 (09:13→21:49)
[2023-05-12] MEDS: Nystatin Cream 15 GM TUBE 1 APPL TOPICAL ×2 (10:30→21:49)
[2023-05-12 11:48] VITALS: BP 98/47; PULSE 81; RESP 20; TEMP 36.7; O2SAT 99
--- NOTE | 2023-05-12 12:53 | P.PNIM_ITS ---
Subjective Subjective Date of Service: 05/12/23 Interval History: No acute issues overnight. Remains afebrile Review of Systems Denies chest pain Denies shortness of breath Denies nausea vomiting diarrhea Denies fever chills Physical Exam 2 Vital Signs: Vital Signs: Last Vital Signs Temp 98.0 F 05/12/23 11:48 Pulse 81 05/12/23 11:48 Resp 20 05/12/23 11:48 BP 98/47 L 05/12/23 11:48 Pulse Ox 99 05/12/23 11:48 O2 Del Method Room Air 05/12/23 11:48 O2 Flow Rate 90 05/06/23 20:00 BMI result Body Mass Index 27.9 Const: Other: Awake alert no acute distress Resp: Other: Clear to auscultation bilaterally no rales rhonchi wheezes Cardio: Other: No S4; positive S1-S2; no S3 murmurs rubs or GI: Other: Soft nontender nondistended normoactive bowel sounds Extrem: Other: No edema bilaterally Objective Data Active Medications Acetaminophen (Acetaminophen 325 Mg Tablet) 975 mg PO Q6H PRN PRN Reason: Pain, Mild (Pain Scale 1-3) Last Admin: 05/10/23 21:29 Dose: 975 mg Documented By: FLORIN Dextrose (Dextrose 50 % 25 Gm/50 Ml Syringe) 25 gm IVPUSH Q15M PRN; Protocol PRN Reason: per Hypoglycemia Standing Ord. Folic Acid (Folic Acid 1 Mg Tablet) 1 mg PO DAILY [facility] Last Admin: 05/12/23 08:20 Dose: 1 mg Documented By: BRENNAN Glucose (Glucose Gel 15 Gm Gel..Gram.) 15 gm PO Q15M PRN; Protocol PRN Reason: per Hypoglycemia Standing Ord. Heparin Sodium (Porcine) (Heparin Sodium,Porcine 5,000 Unit/Ml Vial) 5,000 unit SUBCUT Q8H [facility] Last Admin: 05/12/23 08:20 Dose: 5,000 unit Documented By: BRENNAN Lactated Ringer's (Lr) 1,000 mls @ 100 mls/hr IVCONT .Q10H [facility] Last Admin: 05/12/23 11:22 Dose: 100 mls/hr Documented By: BRENNAN Insulin Human Lispro (Insulin Lispro 100 Unit/Ml 3 Ml Vial) 0 unit SUBCUT QIDACHS [facility]; Protocol Last Admin: 05/12/23 12:16 Dose: Not Given Documented By: BRENNAN Non-Admin Reason: Patient Refused Lactulose (Lactulose 20 Gm/30 Ml Solution) 30 gm PO TID [facility] Last Admin: 05/12/23 08:21 Dose: 30 gm Documented By: BRENNAN Lidocaine (Lidocaine 4 % Patch Adh..Patch) 1 patch TRANSDERMA DAILY [facility]; Protocol Last Admin: 05/12/23 08:23 Dose: 1 patch Documented By: BRENNAN Melatonin (Melatonin 3 Mg Tablet) 3 mg PO BEDTIME [facility] Last Admin: 05/11/23 20:37 Dose: 3 mg Documented By: BELKYS Midodrine (Midodrine Hcl 5 Mg Tablet) 10 mg PO TID@0600,1200,1800 [facility] Last Admin: 05/12/23 12:26 Dose: 10 mg Documented By: BRENNAN Multivitamins/Vitamin C (Multivitamin Tablet) 1 tab PO DAILY [facility] Last Admin: 05/12/23 08:20 Dose: 1 tab Documented By: BRENNAN Naltrexone HCl (Naltrexone Hcl 50 Mg Tablet) 50 mg PO DAILY [facility] Last Admin: 05/12/23 08:20 Dose: 50 mg Documented By: BRENNAN Nystatin (Nystatin Powder 15 Gm Bottle) 1 appl TOPICAL TID [facility]; Protocol Last Admin: 05/12/23 09:13 Dose: 1 appl Documented By: BRENNAN Nystatin (Nystatin Cream 15 Gm Tube) 1 appl TOPICAL BID [facility]; Protocol Last Admin: 05/12/23 10:30 Dose: 1 appl Documented By: BRENNAN Sertraline HCl (Sertraline Hcl 50 Mg Tablet) 50 mg PO DAILY [facility] Last Admin: 05/12/23 08:20 Dose: 50 mg Documented By: BRENNAN Sodium Bicarbonate (Sodium Bicarbonate 650 Mg Tablet) 650 mg PO TID [facility] Last Admin: 05/12/23 08:20 Dose: 650 mg Documented By: BRENNAN Sodium Chloride (0.9 % Sodium Chloride Flush 3 Ml Syringe) 3 ml IVFLUSH QSHIFT [facility] Last Admin: 05/12/23 08:21 Dose: Not Given Documented By: BRENNAN Non-Admin Reason: IV Running Thiamine HCl (Thiamine Hcl 100 Mg Tablet) 100 mg PO DAILY [facility] Last Admin: 05/12/23 08:20 Dose: 100 mg Documented By: BRENNAN Labs 05/11/23 10:24 05/12/23 06:50 Labs: Laboratory Results - last 24 hr 05/11/23 05/11/23 05/12/23 16:28 21:13 06:50 Anion Gap 15 Estim Creat Clear Calc 60.1 Estimated GFR 59 POC Glucose 157 H 193 H Fasting Glucose 147 H Calcium 9.2 Total Bilirubin 0.4 AST 32 ALT 19 Alkaline Phosphatase 101 Total Protein 6.1 L Albumin 2.3 L 05/12/23 05/12/23 07:22 08:18 Anion Gap Estim Creat Clear Calc Estimated GFR POC Glucose 104 94 Fasting Glucose Calcium Total Bilirubin AST ALT Alkaline Phosphatase Total Protein Albumin Microbiology Microbiology Results: Microbiology 05/10/23 09:47 Blood Culture - Preliminary Blood - Venous No growth after 48 hours. 05/10/23 09:47 Blood Culture - Preliminary Blood - Venous No growth after 48 hours. Assessment and Plan (1) 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: Status: Acute Plan 67yo M from [facility], PMHx of EtOH cirrhosis, chronic indwelling urinary cathter, orthostatic hypotension, GERD, and DM2;sent in for worsening confusion, BCx with GNRs + GPCs admitted for sepsis + bacteremia 1.Metabolic acidosis -bicarb minimally improved with the addition of oral therapies. . . Continue same -follow renals/divalents 2.Sepsis due to Gram-negative bacteremia/UTI - BCx 04/29 from [facility] grew Proteus mirabilis resistant to TMP-SMX + cipro, BCx here 04/30 negative. Also GPCs on BCx 04/29- not viable for culture per [facility]. - Urology changed catheter 05/07 -ceftriaxone 05/01-05/12, can complete course with cefuroxime 3.Ascites - paracentesis done 05/01 ... Fluid negative after 5 days 4.Multifactorial encephalopathy - combination of alcohol-related dementia and sepsis -conservative treatment -follow clinically 5.DM2 - correction-dose lispro -adjust as indicated Lovenox Full code In my clinical judgment, the patient requires continued inpatient hospitalization for the following reasons: - IV ABX, acidosis Quality Stroke Does the patient have a stroke diagnosis?: No VTE Prior VTE?: No VTE Risk Level:: Medical - moderate - high VTE Device Contraindication: N/A - Device Ordered VTE Drug Contraindication: N/A - Med Ordered
[2023-05-12 15:22] VITALS: BP 109/58; PULSE 97; RESP 20; TEMP 36.4; O2SAT 98
[2023-05-12 16:15] LABS: Glucose, Whole Blood 146 mg/dL (60-115)
[2023-05-12] MEDS: 0.9 % Sodium Chloride Flush 3 ML SYRINGE IVFLUSH ×2 (16:49→21:28)
[2023-05-12 20:00] VITALS: BP 117/66; PULSE 118; RESP 17; TEMP 36.3; O2SAT 96
[2023-05-12 21:13] LABS: Glucose, Whole Blood 154 mg/dL (60-115)
[2023-05-12] MEDS: Acetaminophen 325 MG TABLET 975 MG PO (21:31)
[2023-05-12] MEDS: Melatonin 3 MG TABLET PO (21:32)
[2023-05-12 23:07] VITALS: BP 116/64; PULSE 83; RESP 18; TEMP 36.6; O2SAT 98
[2023-05-13] MEDS: Heparin Sodium,Porcine 5,000 UNIT/ML VIAL 5000 UNIT SUBCUT ×2 (01:52→10:27)
[2023-05-13 03:48] VITALS: BP 169/70; PULSE 91; RESP 19; TEMP 36.8; O2SAT 97
[2023-05-13] MEDS: Lactated Ringers 1,000 ML 100 ML IVCONT (05:39)
[2023-05-13 08:00] VITALS: BP 116/64; PULSE 76; RESP 18; TEMP 36.4; O2SAT 96
[2023-05-13 08:17] LABS: Glucose, Whole Blood 129 mg/dL (60-115)
[2023-05-13 09:34] LABS: Alanine Aminotransferase 19 U/L (0-40); Albumin Level 2.4 g/dL (3.5-5.0); Alkaline Phosphatase 91 U/L (39-117); Anion Gap 13 (12-20); Aspartate Amino Transferase 32 U/L (5-37); Bilirubin Total 0.7 mg/dL (0.0-1.0); Blood Urea Nitrogen 17 mg/dL (9-16); Calcium 9.3 mg/dL (8.4-10.2); Carbon Dioxide 17 mmol/L (22-29); Chloride 118 mmol/L (96-108); Creatinine Clr Calc Pharmacy 61.6; Estimated Glomerular Filt Rate > 60; Glucose Fasting 155 mg/dL (60-99); Potassium 5.2 mmol/L (3.3-5.1); Sodium 143 mmol/L (135-145); Total Protein 6.2 g/dL (6.5-8.0)
[2023-05-13] MEDS: Sodium Bicarbonate 650 MG TABLET PO (10:28)
[2023-05-13] MEDS: Naltrexone HCl 50 MG TABLET PO (10:28)
[2023-05-13] MEDS: Midodrine HCl 5 MG TABLET 10 MG PO (10:28)
[2023-05-13] MEDS: Thiamine HCL 100 MG TABLET PO (10:28)
[2023-05-13] MEDS: Sertraline HCL 50 MG TABLET PO (10:28)
[2023-05-13] MEDS: Nystatin Powder 15 GM BOTTLE 1 APPL TOPICAL (10:29)
[2023-05-13] MEDS: Nystatin Cream 15 GM TUBE 1 APPL TOPICAL (10:29)
[2023-05-13] MEDS: Multivitamin TABLET 1 TAB PO (10:29)
[2023-05-13] MEDS: Folic Acid 1 MG TABLET PO (10:29)
[2023-05-13] MEDS: 0.9 % Sodium Chloride Flush 3 ML SYRINGE IVFLUSH (10:30)
--- NOTE | 2023-05-13 10:48 | MHC.CM.PN ---
PT MEDICALLY CLEARED TO RETURN TO [facility] FOR STR, CM MET W/PT TO DELIVER IMM AND TO DISCUSS DC, PT AGREEABLE AND CM ALSO ATTEMPTED TO CONTACT PT'S MAAME W/DC TIME HOWEVER NO ANSWER, DETAILED MESSAGE LEFT, [facility] FOR TRANSPORT AT 1:30PM.
--- NOTE | 2023-05-13 11:20 | P.DS_ITS ---
DS: Providers Provider Date of Service: 05/13/23 Date of admission: 04/30/23 20:54 Date of discharge: 05/13/23 Primary care physician: Sharon Lopez MD Consults: 05/01/23 08:35 Consult to Gastroenterology Routine Consulting Provider[place] [facility] Reason for consultation: hepatorenal/emcephalopathy Has provider been notified: No 05/01/23 10:31 Consult to Infectious Diseases Routine Consulting Provider[place] [facility] Reason for consultation: Bacteremia Has provider been notified: No 05/01/23 15:41 Consult to Urology Routine Consulting Provider: [facility] Reason for consultation: possible bacteremia sec to indewlling urinary catheter Has provider been notified: No 05/05/23 21:57 Consult to Wound Care Routine Reason for consultation: redness to buttocks, fungal rash to groin, skin tear right hand Has provider been notified: No 05/06/23 14:59 Consult to Neurology Routine Consulting Provider: [facility] Reason for consultation: encephalopathy , not improving Has provider been notified: No 05/08/23 11:37 Consult to Psychiatry Routine Consulting Provider: [facility] Reason for consultation: EtOH ?dementia ?depression DS: Diagnosis Discharge Diagnosis (1) 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: Status: Acute DS: Summary Hospital Course Hospital Course: 67 years old man with past medical history significant for alcoholic liver cirrhosis/chronic liver disease, chronic indwelling urinary catheter, GERD, orthostatic hypotension on midodrine and type 2 diabetes mellitus on insulin was brought to the emergency department from his nursing facility due to worsening confusion over the last week. Workup was ordered and blood cultures came back positive for Gram-negative bacilli and Gram-positive cocci. Patient seems to be confused however he was able to answer some simple questions. He denied pain, shortness on breath or nausea. Patient's was at bedside and mentioned that his confusion has been on and off over the last week. He takes lactulose for hepatic encephalopathy. In the ED, he was found to have soft BPs (which are slightly lower than his baseline BP, according to information obtained from [facility]). There is no tachycardia or fever. Blood workup is remarkable for leukocytosis, 13.0 (it was 19.3 yesterday). There is anemia, 10.8. Platelets are normal. There are no significant electrolyte imbalances. CO2 slightly low (20) with normal anion gap. Lactic acid is 2.8 (it was repeated after IV fluids and now is 3.0). Creatinine is 2.08 (yesterday was 1.78 -nursing facility paperwork; baseline around 1.0 according to [facility]). Ammonia 4.0 (yesterday). CXR done yesterday is negative. Transaminases are normal. Alk-phos and bilirubin slightly elevated. Albumin 2.4 and normal lipase. Urinalysis consistent with urinary tract infection. Hospital Course 1.sepsis due to Gram-negative bacteremia + UTI - BCx 04/29 from [facility] grew Proteus mirabilis resistant to TMP-SMX + cipro, BCx here 04/30 negative. Also GPCs on BCx 04/29- not viable for culture per [facility]. - Urology changed catheter 05/07 - lactic acidosis resolved - ceftriaxone 05/01-05/12, can complete course with cefuroxime 2,Ascites - paracentesis done 05/01 with low-SAAG ascites, cytology: Peritoneal fluid (cytology and cell block): Negative for malignant cells. Comment: Examination of monolayer preparation and cell block slide shows occasional benign mesothelial cells, scattered histiocytes, scattered lymphocytes, occasional neutrophils, and proteinaceous material with few red blood cells. Cultures negative 3.Multifactorial encephalopathy - mild hepatic encephalopathy [lactulose + rifaximin] + infection [UTI treated] + toxic [gabapentin held] - Neurology consulted: CT head shows age-related atrophy and microvascular white matter disease - Psychiatry consultation limited by pt's poor mental status. he denies depression or anxiety to me - ultimately, per discussion with his , could mostly be due to EtOH dementia At this point in time he is medically acceptable to transfer back to day broken complete a course oral cefuroxime. Due to his chronic liver disease, he was chronically mildly acidotic for which bicarb was added. Time Attestation Discharge Coordination Time: discharge time of ____ minutes Quality: Safe Use of Opioids Does Pt have an Active Cancer Diagnosis on the Problem List?: No Quality: Stroke Does the patient have a stroke diagnosis?: No Physical Exam Vital Signs: Vital Signs: Last Vital Signs Temp 97.6 F 05/13/23 08:00 Pulse 76 05/13/23 08:00 Resp 18 05/13/23 08:00 BP 116/64 05/13/23 08:00 Pulse Ox 96 05/13/23 08:00 O2 Del Method Room Air 05/13/23 08:00 O2 Flow Rate 90 05/06/23 20:00 BMI result Body Mass Index 27.9 Const: Other: Awake alert no acute distress Resp: Other: Clear to auscultation bilaterally no rales rhonchi wheezes Cardio: Other: No S4; positive S1-S2; no S3 murmurs rubs or GI: Other: Soft nontender nondistended normoactive bowel sounds Extrem: Other: No edema bilaterally DS: Data Data Completed and Pending Completed studies during hospitalization [Text1]: Pending at discharge 05/01/23 14:49 Cytology [PTH] Urgent Labs on day of discharge: Laboratory Results - last 24 hr 05/12/23 05/12/23 05/12/23 16:09 20:00 21:07 Hold Purple Top Sodium Potassium Chloride Carbon Dioxide Anion Gap BUN Creatinine Estim Creat Clear Calc Estimated GFR POC Glucose 146 H 154 H Fasting Glucose Calcium Total Bilirubin AST ALT Alkaline Phosphatase Total Protein Albumin Peritoneal Albumin Cancelled 05/13/23 05/13/23 08:09 08:28 Hold Purple Top SEE NOTE Sodium 143 Potassium 5.2 H Chloride 118 H Carbon Dioxide 17 L Anion Gap 13 BUN 17 H Creatinine 1.19 Estim Creat Clear Calc 61.6 Estimated GFR > 60 POC Glucose 129 H Fasting Glucose 155 H Calcium 9.3 Total Bilirubin 0.7 AST 32 ALT 19 Alkaline Phosphatase 91 Total Protein 6.2 L Albumin 2.4 L Peritoneal Albumin Preliminary micro results at discharge 05/10/23 09:47 Blood Culture - Preliminary Blood - Venous No growth after 48 hours. 05/10/23 09:47 Blood Culture - Preliminary Blood - Venous No growth after 48 hours. Discharge Plan Discharge Anticipated Discharge Date/Time: 05/13/23 11:13 Patient Disposition: Xfer SNF Discharge Diagnosis: Metabolic encephalopathy Referrals: [facility] [Outside] - 1 Day (SHORT TERM REHAB) Sharon oMrris MD [Primary Care Provider] - 1 Week Discharge Medications: New sodium bicarbonate 650 mg Tablet 650 mg PO TID Qty: 90 0RF Continued multivitamin Tablet 1 tab PO DAILY acetaminophen 325 mg Tablet 650 mg PO QID PRN (Reason: Pain) naltrexone 50 mg Tablet 50 mg PO DAILY thiamine HCl (vitamin B1) 100 mg tablet 100 mg PO DAILY melatonin 3 mg Tablet 3 mg PO BEDTIME pantoprazole 40 mg tablet,delayed release (DR/EC) 40 mg PO DAILY folic acid 1 mg tablet 1 mg PO DAILY gabapentin 100 mg capsule 100 mg PO TID sertraline 50 mg tablet 50 mg PO DAILY midodrine 10 mg tablet 10 mg PO TID@0600,1200,1800 insulin lispro [Humalog KwikPen Insulin] 100 unit/mL Insulin Pen 0 sliding scale dose SUBCUT TIDAC Protocol: Insulin Correction Scale Less than or equal to 110 ---- Give (units): 0 111 to 150 Give (units): 0 151 to 200 Give (units): 2 201 to 250 Give (units): 4 251 to 300 Give (units): 6 301 to 350 Give (units): 8 Greater than 350 Give (units): 10 Call MD if Blood Glucose > : 350 lactulose 10 gram/15 mL solution 45 ml PO TID Rx Instructions: HOLD FOR THREE OR MORE LOOSE STOOLS Xifaxan 550 mg tablet 550 mg PO BID insulin glargine [Lantus Solostar U-100 Insulin] 100 unit/mL (3 mL) Insulin Pen 30 unit SUBCUT BEDTIME Discharge Orders: Discharge Order (Routine); Ordered 05/13/23 Ordered By: Cecilio Ga Diet: Advance to usual diet Activity on Discharge: As tolerated Stand Alone Forms: Patient Portal Discharge page Care Plan Goals: Resume all meds as outlined on discharge sheet Health Concerns: Add sodium bicarb 650 t.i.d. to your regimen Plan of Treatment: As per receiving facility Assessment: See discharge summary
[2023-05-13 11:55] VITALS: BP 108/61; TEMP 36.2
[2023-05-13 12:08] LABS: Glucose, Whole Blood 152 mg/dL (60-115)
[2023-05-13] MEDS: Insulin Lispro 100 UNIT/ML 3 ML VIAL SUBCUT (12:14)
== END 2023-05-13 14:02 | disposition skilled nursing facility (03) | DRG 698 ==
LOC: HO.ED 17:03 → HO.EDOVER 21:41 → HO.IMC 05-01 07:27
PROVIDERS: Family Medicine; Internal Medicine; Nurse Practitioner Family; Physician Assistant Surgical; Admitting Provider Internal Medicine; Emergency Provider Emergency Medicine Emergency Medical Services; PCP Internal Medicine; Visit Provider Hospitalist
DX: T83.511A Infection and inflammatory reaction due to indwelling urethral catheter, initial encounter (principal); A41.9 Sepsis, unspecified organism; R65.20 Severe sepsis without septic shock; G92.8 Other toxic encephalopathy; K76.7 Hepatorenal syndrome; N17.9 Acute kidney failure, unspecified; Z16.24 Resistance to multiple antibiotics; F10.988 Alcohol use, unspecified with other alcohol-induced disorder; F02.80 Dementia in other diseases classified elsewhere, unspecified severity, without behavioral disturbance, psychotic disturbance, mood disturbance, and anxiety; N40.0 Benign prostatic hyperplasia without lower urinary tract symptoms; K76.82 Hepatic encephalopathy; B96.4 Proteus (mirabilis) (morganii) as the cause of diseases classified elsewhere; K70.31 Alcoholic cirrhosis of liver with ascites; N39.0 Urinary tract infection, site not specified; K21.9 Gastro-esophageal reflux disease without esophagitis; E11.9 Type 2 diabetes mellitus without complications; I95.1 Orthostatic hypotension; Z87.891 Personal history of nicotine dependence; Z79.4 Long term (current) use of insulin; Z79.899 Other long term (current) drug therapy
CPT/HCPCS: 36415; 49083; 70450; 74176; 80048; 80053; 80202; 81001; 82042; 82140; 82565; 82803; 82945; 82947; 83605; 83615; 83690; 83735; 84157; 85014; 85018; 85025; 85027; 85049; 85610; 87040; 87070; 87073; 87086; 87116; 87205; 87206; 87493; 87502; 87507; 87635; 88112; 88305; 89051; 93005; 97162; 97530; 99285; C9113; J0696; J1644; J2060; J2543; J3370; J3371; J3411; J7120; P9047

== ENCOUNTER → 2023-04-30 17:00 | Outpatient (BNV) | payer OTHER, SELFPAY | PROVIDERS: Admitting Provider Internal Medicine; Emergency Provider Emergency Medicine Emergency Medical Services; Visit Provider Internal Medicine Cardiovascular Disease | DX: I44.0 Atrioventricular block, first degree (principal) | CPT/HCPCS: 93010 ==

== ENCOUNTER 2023-04-30 20:54 | Outpatient (BNV) | payer MEDICARE, SELFPAY | END 2023-05-01 14:30 | PROVIDERS: Admitting Provider Internal Medicine; Emergency Provider Emergency Medicine Emergency Medical Services; PCP Internal Medicine; Visit Provider Radiology Vascular & Interventional Radiology | DX: R18.8 Other ascites (principal) | CPT/HCPCS: 49083 ==

== ENCOUNTER → 2023-04-30 20:54 | Outpatient (BNV) | payer SELFPAY | PROVIDERS: Admitting Provider Internal Medicine; Emergency Provider Emergency Medicine Emergency Medical Services; Visit Provider Internal Medicine | DX: K76.9 Liver disease, unspecified (principal); G93.40 Encephalopathy, unspecified; R78.81 Bacteremia; B96.4 Proteus (mirabilis) (morganii) as the cause of diseases classified elsewhere | CPT/HCPCS: 99222 ==

== ENCOUNTER → 2023-04-30 20:54 | Outpatient (BNV) | payer MEDICARE, SELFPAY | PROVIDERS: Admitting Provider Internal Medicine; Emergency Provider Emergency Medicine Emergency Medical Services; Visit Provider Internal Medicine | DX: K76.9 Liver disease, unspecified (principal); D64.9 Anemia, unspecified; G93.40 Encephalopathy, unspecified; N17.9 Acute kidney failure, unspecified; T83.511A Infection and inflammatory reaction due to indwelling urethral catheter, initial encounter; N39.0 Urinary tract infection, site not specified | CPT/HCPCS: 99223; 99232 ==

== ENCOUNTER → 2023-04-30 20:54 | Outpatient (BNV) | payer MEDICARE, SELFPAY | PROVIDERS: Admitting Provider Internal Medicine; Emergency Provider Emergency Medicine Emergency Medical Services; PCP Internal Medicine; Visit Provider Psychiatry & Neurology Neurology | DX: G93.40 Encephalopathy, unspecified (principal); R78.81 Bacteremia; B96.4 Proteus (mirabilis) (morganii) as the cause of diseases classified elsewhere | CPT/HCPCS: 99222 ==

== ENCOUNTER → 2023-04-30 20:54 | Outpatient (BNV) | payer MEDICARE, SELFPAY | PROVIDERS: Admitting Provider Internal Medicine; Emergency Provider Emergency Medicine Emergency Medical Services; Visit Provider Urology | DX: T83.511A Infection and inflammatory reaction due to indwelling urethral catheter, initial encounter (principal) | CPT/HCPCS: 51702; 99222; 99232 ==

== ENCOUNTER → 2023-04-30 20:54 | Outpatient (BNV) | payer MEDICARE, SELFPAY | PROVIDERS: Admitting Provider Internal Medicine; Emergency Provider Emergency Medicine Emergency Medical Services; PCP Internal Medicine; Visit Provider Registered Nurse | DX: F10.90 Alcohol use, unspecified, uncomplicated (principal); R41.0 Disorientation, unspecified | CPT/HCPCS: 99222 ==

== ENCOUNTER → 2023-04-30 20:54 | Outpatient (BNV) | payer MEDICARE, SELFPAY | PROVIDERS: Admitting Provider Internal Medicine; Emergency Provider Emergency Medicine Emergency Medical Services; Visit Provider Internal Medicine | DX: A41.9 Sepsis, unspecified organism (principal); B96.4 Proteus (mirabilis) (morganii) as the cause of diseases classified elsewhere; N39.0 Urinary tract infection, site not specified | CPT/HCPCS: 99223; 99232; 99233; 99238 ==

== ENCOUNTER 2023-05-20 11:25 | Inpatient (IN) | payer MEDICARE, SELFPAY ==
--- NOTE | ~2023-05-20 | XR_ITS ---
EXAMINATION: XR CHEST CLINICAL INFORMATION: Aspirated during barium swallow COMPARISON: CT abdomen pelvis 05/20/2023, fluoroscopic barium swallow examination 05/23/2023. CT abdomen pelvis 04/30/2023. TECHNIQUE: 2 views of the chest were obtained. FINDINGS: Cardiac silhouette is at the upper limits of normal size. Moderate aortic calcific atherosclerosis is noted. No effusions or pneumothoraces. Oral contrast is noted within the stomach. Making allowances for costochondral calcifications overlying artifacts, no definitive barium contrast agent is noted within the lungs. No focal pulmonary consolidation identified. Multiple left posterolateral chronic appearing posttraumatic rib deformities are noted. Moderate anterior wedge deformity of the L1 vertebral body is unchanged compared with 04/30/2023. XR/XR chest 2V IMPRESSION: *No acute cardiopulmonary abnormalities. No evidence of aspirated oral contrast agent.
--- NOTE | ~2023-05-20 | US_ITS ---
ULTRASOUND GUIDED PARACENTESIS HISTORY: Ascites. Cirrhosis. Therapeutic and diagnostic drainage Risks and benefits and possible complications were discussed with the patient and consent form was signed. A safe pocket of ascitic fluid was identified left lower quadrant using ultrasound guidance, and the overlying skin marked, prepped and draped in sterile fashion. 1% lidocaine was used as a local anesthetic. Using ultrasound guidance, a 5 fr catheter was placed into the ascitic pocket. 5.0 liters of yellow fluid was removed passively. The catheter was then removed. A few product sales representative images from before and after the examination were obtained. The procedure was performed by Russ Ramírez PA-C and supervised by Dr. Pond. US/US paracentesis abd w/image IMPRESSION: Successful Ultrasound-guided paracentesis as described above. No immediate complications
--- NOTE | ~2023-05-20 | FL_ITS ---
EXAMINATION: XR FLUOROSCOPY BARIUM SWALLOW CLINICAL INFORMATION: Globus sensation. Difficulty with food progressing after swallow. Patient is bedbound. COMPARISON: None TECHNIQUE: Fluoroscopic air contrast esophagram was performed utilizing standard techniques with thick barium and effervescent granules. Numerous spot images were obtained. FINDINGS: Images of the oropharynx and hypopharynx demonstrate normal swallow mechanism with normal epiglottic inversion and soft palate elevation. No nasopharyngeal reflux present. Hypopharyngeal structures appear normal without evidence of mass or diverticulum. Mild cricopharyngeal achalasia present. On initial swallow there were no signs of laryngeal penetration or aspiration. However, subsequent imaging demonstrated silent tracheal aspiration with thick barium. The exam was then terminated. Dual and single contrast images of the esophagus demonstrate normal caliber, contour, and mucosal pattern. No masses or ulcerations are present. There is moderate narrowing of the GE junction that may represent achalasia versus a benign short segment stricture. Esophageal peristalsis was mildly disorganized in the lower esophagus. Due to subglottic aspiration, with a significant amount of barium, the examination was terminated before the stomach and duodenum could be evaluated. FLUOROSCOPY TIME: 3 minutes 43 seconds Number of Spot Images: 3 Number of Cine: 5 DOSE AREA PRODUCT: 1752 uGy-m2 (microgray-meter squared) FL/FL barium swallow with air IMPRESSION: 1. Delayed silent tracheal aspiration with thick barium. 2. Mild cricopharyngeal achalasia 3. Mildly disorganized esophageal peristalsis 4. Narrowing of the GE junction that likely represents achalasia. A short segment benign stricture cannot be excluded. 5. Incomplete exam. The termination was terminated once tracheal aspiration was identified. This procedure was performed by Russ Ramírez PA-C, and supervised by Dr. Pond
--- NOTE | ~2023-05-20 | CT_ITS ---
EXAMINATION: CT ABDOMEN AND PELVIS WITHOUT CONTRAST CLINICAL INFORMATION: Left lower quadrant hematoma. Distention. Vomiting. COMPARISON: CT abdomen pelvis dated 04/30/2023. TECHNIQUE: Multidetector volumetric imaging was performed from the superior aspect of the liver through the pubic symphysis. Sagittal and coronal reformatted images were obtained on the technologist's workstation. This CT examination was performed using dose optimization techniques as appropriate, variously including the following: *Automated exposure control *Adjustment of mA and/or kV according to patient size (this includes techniques or standardized protocols for targeted exams where dose is matched to indication/reason for exam; i.e. extremities or head) *Use of iterative reconstruction technique DLP: 620 mGy-cm FINDINGS: LUNG BASES: Heart size is normal. There is a small pericardial effusion. The lung bases are clear. There is no pleural effusion. LIVER, GALLBLADDER, AND BILIARY TREE: The liver is cirrhotic. There is no focal hepatic lesion identified. There is no intrahepatic biliary ductal dilation. There are multiple gallstones. PANCREAS: Unremarkable. SPLEEN: Unremarkable. ADRENAL GLANDS: Unremarkable. KIDNEYS AND URETERS: The kidneys are normal in size, shape, and attenuation. No hydronephrosis, hydroureter, or calculi seen. There is unchanged, mild, nonspecific perinephric stranding bilaterally. BLADDER: The urinary bladder is decompressed around a Gordon catheter. GASTROINTESTINAL TRACT: The small and large bowel are normal in caliber. The appendix is unremarkable. There is massive abdominal and pelvic ascites. ABDOMINAL WALL: No significant hernia is appreciated. LYMPH NODES: No retroperitoneal or pelvic lymphadenopathy. VASCULAR: No abdominal aortic aneurysm. Mild atherosclerotic change. PELVIC VISCERA: Unremarkable. OSSEOUS STRUCTURES: There is a stable, age indeterminate compression fracture involving L1 vertebral body. There are degenerative changes throughout the lumbar spine. There are bilateral, age-indeterminate rib fractures. CT/CT abdomen pelvis wo IV con IMPRESSION: The liver is cirrhotic. There is massive abdominal and pelvic ascites. There are gallstones. When compared with CT abdomen pelvis dated April 30, 2023, these findings are essentially unchanged. Fleischner guidelines were followed.
--- NOTE | ~2023-05-20 | FL_ITS ---
EXAMINATION: Modified Barium Swallow. CLINICAL INFORMATION: Dysphagia. COMPARISON: None. TECHNIQUE: Modified barium swallow was performed under lateral fluoroscopy with patient in standing position. Barium mixed with solids and liquids of varying consistencies was administered by the speech pathologist. The examination was recorded in the fluoroscopy suite. FINDINGS: Laryngeal penetration was seen with nectar thick and thin consistency barium. FLUOROSCOPY TIME: 2 minutes 28 seconds Number of Spot Images: Single lateral spot image hold DOSE AREA PRODUCT: 1772 uGy-m2 (microgray-meter squared) FL/FL barium swallow modified IMPRESSION: Laryngeal penetration was seen with nectar thick and thin consistency barium. Refer to the speech therapy report for further clarification This procedure was performed by Russ Ramírez PA-C, and supervised by Dr. Pond
--- NOTE | ~2023-05-20 | US_ITS ---
EXAMINATION: US VENOUS WITH DOPPLER UPPER EXTREMITY, left CLINICAL INFORMATION: Swelling COMPARISON: None available. TECHNIQUE: Ultrasound of the upper extremity is performed using compression sonography and color and pulse Doppler flow with assessment of augmentation of flow. There is also imaging and Doppler assessment of the jugular and subclavian veins. Spectral analysis with color-flow imaging is performed. FINDINGS: There is significant left arm and forearm edema limiting the evaluation. Respiratory variation, normal compression, and augmented flow are noted throughout the upper extremity including the axillary, brachial, cubital, and radial and ulnar veins. There is partial thrombus visualized in the cephalic vein. There is normal flow in the internal jugular and subclavian veins. There is no visible deep or superficial thrombophlebitis. If the patient's symptoms progress, a followup ultrasound in 5 -7 days might be of value to exclude proximal propagation from a nonvisualized distal arm vein. US/US venous duplex UE LT IMPRESSION: Partial thrombus in the left cephalic vein suggestive of superficial thrombophlebitis . There is no thrombus visualized in the deep left subclavian, axillary, internal jugular or brachial veins. Moderate soft tissue edema.
--- NOTE | ~2023-05-20 | US_ITS ---
ULTRASOUND GUIDED PARACENTESIS HISTORY: Ascites. Diagnostic and therapeutic drainage. Risks and benefits and possible complications were discussed with the patient and consent form was signed. A safe pocket of ascitic fluid was identified right lower quadrant using ultrasound guidance, and the overlying skin was marked, prepped and draped in sterile fashion. 1% lidocaine was used as a local anesthetic. Using ultrasound guidance, a 5 fr catheter was placed into the ascitic pocket. 5.0 liters of yellow fluid was removed passively. The catheter was then removed. A sample of the ascites was sent for analysis. A few communications representative images from before and after the examination were obtained. The procedure was performed by Russ Ramírez PA-C and supervised by Dr. Pond. US/US paracentesis abd w/image IMPRESSION: Successful Ultrasound-guided paracentesis as described above. No immediate complications
[2023-05-20 11:35] VITALS: BP 116/64; BP 127/71; PULSE 85; PULSE 96; RESP 16; TEMP 36.6; O2SAT 92; O2SAT 95; BMI 33.4
--- NOTE | 2023-05-20 11:48 | PC.NURSE ---
pt MEME from [facility] who reported that pt has bene vomiting for 4 days following a dx of bacteremia. according to the pt, he has no complaints, denies vomiting. pt alert to person and date
--- NOTE | 2023-05-20 11:53 | ED_ITS ---
HPI - Nausea/Vomiting/Diarrhea General Chief complaint: Nausea/Vomiting/Diarrhea Stated complaint: VOMITING X4 DAYS,FROM SNF PER EMS Time Seen by Provider: 05/20/23 11:27 Source: patient, family, EMS and old records reviewed Mode of arrival: EMS Limitations: other (poor historian) History of Present Illness HPI Narrative: 67 yo male with PMH of BPH, bacteremia due to proteus just DC on 05/12 on ceftin, alcoholic liver cirrhosis, orthostatic hypotension on midodrine, chronic indwelling catheter, s/p paracentesis for ascites culture negative - comes from [facility] with c/o poor PO intake since arrival, reports of confusion, vomiting yesterday. He states he feels much better, denies pain, does not need paracentesis. is at bedside and states he is at baseline not more confused. They are both confused as to why he is here MD elicited complaint: nausea and vomiting Pertinent past history: other Onset (ago): day(s) (yesterday but resolved) Description of vomiting: food contents Associated nausea: Yes Associated abdominal pain: No Severity: mild Exacerbating factors: eating Relieving factors: none Context: recent antibiotic use Associated symptoms: denies other symptoms Related Data Home Medications Medication Instructions Recorded Confirmed acetaminophen 325 mg tablet 650 mg PO DAILY PRN Fever 04/30/23 05/20/23 folic acid 1 mg tablet 1 mg PO DAILY 04/30/23 05/20/23 gabapentin 100 mg capsule 100 mg PO TID 04/30/23 05/20/23 insulin glargine 100 unit/mL (3 30 unit subcut BEDTIME 04/30/23 05/20/23 mL) subcutaneous pen (Lantus Solostar U-100 Insulin) insulin lispro 100 unit/mL 0 sliding scale dose subcut TIDAC 04/30/23 05/20/23 subcutaneous pen (Humalog KwikPen (U-100) Insulin) lactulose 10 gram/15 mL oral 45 ml PO TID 04/30/23 05/20/23 solution melatonin 3 mg tablet 3 mg PO BEDTIME Sleep 04/30/23 05/20/23 midodrine 10 mg tablet 10 mg PO TID@0600,1200,1800 04/30/23 05/20/23 multivitamin 1 tab PO DAILY 04/30/23 05/20/23 naltrexone 50 mg tablet 50 mg PO DAILY 04/30/23 05/20/23 pantoprazole 40 mg tablet,delayed 40 mg PO DAILY@0600 04/30/23 05/20/23 release rifaximin 550 mg tablet (Xifaxan) 550 mg PO BID 04/30/23 05/20/23 sertraline 50 mg tablet 50 mg PO DAILY 04/30/23 05/20/23 thiamine HCl (vitamin B1) 100 mg 100 mg PO DAILY 04/30/23 05/20/23 tablet bisacodyl 10 mg rectal suppository 10 mg [place] DAILY PRN Constipation 05/20/23 05/20/23 magnesium hydroxide 400 mg/5 mL 400 ml PO DAILY PRN Constipation 05/20/23 05/20/23 oral suspension (Milk of Magnesia) ondansetron HCl 4 mg tablet 4 mg PO Q4H PRN nausea/vomting 05/20/23 05/20/23 sodium phosphates 19 gram-7 118 ml [place] DAILY PRN Constipation 05/20/23 05/20/23 gram/118 mL enema (Fleet Enema) Previous Rx's Medication Instructions Recorded cefuroxime axetil 500 mg tablet 500 mg PO BID 10 days #20 tabs 05/13/23 sodium bicarbonate 650 mg tablet 650 mg PO TID #90 tabs 05/13/23 Allergies Allergy/AdvReac Type Severity Reaction Status Date / Time lisinopril Allergy Angioedema Verified 04/30/23 17:28 scallops Allergy Angioedema Verified 04/30/23 17:28 Review of Systems 2 Review of Systems: Constitutional : No Weight loss, No Fever, No Chills ENT/Mouth : No sore throat, No Rhinorrhea Eyes: No Swelling, No Redness Cardiovascular : No Chest Pain, No SOB, NoEdema Respiratory : No Cough, No Sputum, No Wheezing Gastrointestinal : Positive Nausea, Positive Vomiting, no Diarrhea, no abdominal Pain, No Hematochezia, No Melena Genitourinary : No Dysuria, No Urinary Frequency, No Hematuria, No Urgency Musculoskeletal : No joint pain, No Myalgias, No Joint Swelling Skin : No Skin Lesions, No rash Neuro : No Weakness, No Numbness, No Dizziness, No Headache Psych : No Anxiety/Panic, No Depression All other systems reviewed and are negative. Gastrointestinal: Gastrointestinal: Reports nausea PMFSH Past Medical History Attestation statement: The following information was validated with the patient. Source: old records reviewed and obtained from family Medical History 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 Orthostatic hypotension Chronic liver disease Type 2 diabetes mellitus Social History Social History Housing: Assisted Living Facility Patient Tobacco Use Status: Former Tobacco user Smoked in Last 30 Days: No Use of substances other than those prescribed or required for medical reasons: Yes Substance Use Type: Marijuana Advance Directives: No Advance Directives Information Provided: No service: No Physical Exam 2 Vital Signs: Vital Signs: Last Vital Signs Temp 97.7 F 05/20/23 14:06 Pulse 85 05/20/23 11:35 Resp 20 05/20/23 14:06 BP 125/40 L 05/20/23 14:06 Pulse Ox 95 05/20/23 11:35 O2 Del Method Room Air 05/20/23 14:06 BMI result Body Mass Index 33.4 Appearance: Alert. Oriented X3. No acute distress. Eyes: Pupils equal, round and reactive to light. ENT: Pharynx normal. Neck: Normal inspection. Neck supple. CVS: Normal heart rate and rhythm. Pulses normal. Respiratory: No respiratory distress. Breath sounds normal. Abdomen: Soft nontender but with moderate ascites Skin: Skin warm and dry. Normal skin color. Normal skin turgor. Extremities: No lower extremity edema. No calf ttp Neuro: Oriented X 3. No motor deficit. No sensory deficit. Course Course Course Narrative: mild PENNY will hydrate baseline Cr around 1.3 Reevaluation(s) Reevaluation #1: no improvement in Cr after fluids and albumin will admit Medications Administered Discontinued Medications Generic Name Dose Route Start Last Admin Trade Name Freq PRN Reason Stop Dose Admin Albumin Human 100 mls @ 100 mls/hr 05/20/23 13:06 05/20/23 14:44 Kedbumin 25 % IV 05/20/23 14:05 Infused ONCE ONE Infusion Sodium Chloride 500 mls @ 500 mls/hr 05/20/23 13:15 05/20/23 14:44 Ns IV 05/20/23 14:14 Infused .Q1H MIRIAM Infusion Medical Decision Making Medical Decision Making MDM Narrative: 67 yo male with ETOH liver cirrhosis, ascites, chronic indwelling garcia, GERD, orthostatic hypotension, recent proteus bacteremia on ceftin who presents from [facility] with reports of confusion, abdominal distention, vomiting he admits to the vomiting yesterday which is not unusual for him. He and his do not want a paracentesis today they feel he does not need it. He is not confused on questioning is alert and oriented x 3. Has no abdominal pain. At this time will repeat labs, check ammonia level, obtain CT scan for obstruction. Differential Diagnosis Differential Diagnoses: The differential diagnosis associated with the presentation includes obstruction, ascites, hepatic encephalopathy Admission/Observation Consideration of admission/observation: Escalation of care including admission/observation considered will admit given PENNY and no response to initial treatments Consult Healthcare Provider Management of the patient was discussed with: Hospitalist (will admit) Lab Data MDM Lab Attestation statement: I reviewed the patient's lab results. 05/20/23 12:30 05/20/23 15:48 Labs: Lab Results 05/20/23 05/20/23 05/20/23 Range/Units 12:30 12:31 15:48 WBC 8.5 (4.8-10.8) X10*3/uL RBC 3.74 L (4.60-5.80) X10*6/uL Hgb 11.1 L (14.0-18.0) g/dl Hct 34.5 L (42.0-52.0) % MCV 92.2 (80.0-98.0) fL MCH 29.7 (27.0-33.0) pg MCHC 32.2 (31.0-36.0) g/dl RDW 17.0 H (11.0-16.0) % Plt Count 370 D (160-400) X10*3/uL MPV 9.8 (9.4-12.4) fL Immature Gran % (Auto) 0.5 H (0.0-0.4) % Neut % (Auto) 59.6 (45-73) % Lymph % (Auto) 29.9 (20-40) % Dare % (Auto) 6.8 (2-11) % Eos % (Auto) 1.8 (0-4) % Baso % (Auto) 1.4 (0-2) % Lymph # (Auto) 2.5 (1.2-4.9) X10*3/uL Dare # (Auto) 0.6 (0.1-1.2) X10*3/uL Eos # (Auto) 0.2 (0.0-0.4) X10*3/uL Baso # (Auto) 0.1 (0.0-0.2) X10*3/uL Abs Immat Gran (auto) 0.04 H (0.00-0.03) X10*3/uL Absolute Neuts (auto) 5.1 (2.0-8.3) x10*3/uL Absolute Nucleated RBC 0.000 (0.0-0.012) X10*3/uL Nucleated RBC % (auto) 0.0 (0.0-0.2) /100WBC Sodium 142 (135-145) mmol/L Potassium 4.7 (3.3-5.1) mmol/L Chloride 112 H (96-108) mmol/L Carbon Dioxide 19 L (22-29) mmol/L Anion Gap 16 (12-20) BUN 22 H (9-16) mg/dL Creatinine 1.67 H 1.67 H (0.5-1.4) mg/dL Estim Creat Clear Calc 47.8 47.8 Estimated GFR 41 41 Random Glucose 114 (60-115) mg/dL Calcium 8.8 (8.4-10.2) mg/dL Magnesium 1.8 (1.6-2.6) mg/dL Total Bilirubin 0.8 (0.0-1.0) mg/dL Direct Bilirubin 0.3 (0.0-0.5) mg/dL AST 34 (5-37) U/L ALT 17 (0-40) U/L Alkaline Phosphatase 92 (39-117) U/L Ammonia 29 (13-55) umol/L Total Protein 6.3 L (6.5-8.0) g/dL Albumin 2.4 L (3.5-5.0) g/dL Lipase 10 (8-78) U/L Independent Interpretation I performed an independent interpretation of an: CT Scan (ascites) Radiology Impression Discussion of test interpretation with radiology: I have reviewed the radiologist's reading. Independent Historian Clinical information obtained from an independent historian. History obtained from or confirmed by: Spouse External Record Review External record reviewed: Inpatient record, Outpatient record and Prior outpatient labs Discharge Plan Discharge Clinical Impression: PENNY (acute kidney injury) Ascites Qualifiers: Ascites type: due to alcoholic cirrhosis Qualified Code(s): K70.31 - Alcoholic cirrhosis of liver with ascites Patient Disposition: Admitted As Inpatient
[2023-05-20 12:34] LABS: MANUAL DIFF FLAG NO
[2023-05-20 12:42] LABS: Basophils Absolute Auto 0.1 X10*3/uL (0.0-0.2); Basophils Percent Auto 1.4 % (0-2); Eosinophils Absolute Auto 0.2 X10*3/uL (0.0-0.4); Eosinophils Percent Auto 1.8 % (0-4); Hematocrit 34.5 % (42.0-52.0); Hemoglobin 11.1 g/dl (14.0-18.0); Imm Gran Abs Auto 0.04 X10*3/uL (0.00-0.03); Imm Gran Pct Auto 0.5 % (0.0-0.4); Lymphocytes Absolute Auto 2.5 X10*3/uL (1.2-4.9); Lymphocytes Percent Auto 29.9 % (20-40); Mean Corpuscular HGB Conc 32.2 g/dl (31.0-36.0); Mean Corpuscular Hemoglobin 29.7 pg (27.0-33.0); Mean Corpuscular Volume 92.2 fL (80.0-98.0); Mean Platelet Volume 9.8 fL (9.4-12.4); Monocytes Absolute Auto 0.6 X10*3/uL (0.1-1.2); Monocytes Percent Auto 6.8 % (2-11); Neutrophils Absolute Auto 5.1 x10*3/uL (2.0-8.3); Neutrophils Percent Auto 59.6 % (45-73); Platelet Count 370 X10*3/uL (160-400); Red Blood Count 3.74 X10*6/uL (4.60-5.80); White Blood Count 8.5 X10*3/uL (4.8-10.8)
[2023-05-20 12:45] LABS: Ammonia 29 umol/L (13-55)
[2023-05-20 12:52] LABS: Alanine Aminotransferase 17 U/L (0-40); Albumin Level 2.4 g/dL (3.5-5.0); Alkaline Phosphatase 92 U/L (39-117); Anion Gap 16 (12-20); Aspartate Amino Transferase 34 U/L (5-37); Bilirubin Direct 0.3 mg/dL (0.0-0.5); Bilirubin Total 0.8 mg/dL (0.0-1.0); Blood Urea Nitrogen 22 mg/dL (9-16); Calcium 8.8 mg/dL (8.4-10.2); Carbon Dioxide 19 mmol/L (22-29); Chloride 112 mmol/L (96-108); Creatinine Clr Calc Pharmacy 47.8; Estimated Glomerular Filt Rate 41; Glucose Random 114 mg/dL (60-115); Lipase 10 U/L (8-78); Magnesium 1.8 mg/dL (1.6-2.6); Potassium 4.7 mmol/L (3.3-5.1); Sodium 142 mmol/L (135-145); Total Protein 6.3 g/dL (6.5-8.0)
[2023-05-20] MEDS: 0.9 % Sodium Chloride 500 ML IV (13:43)
[2023-05-20] MEDS: Albumin Human 25 % 100 ML IV ×2 (13:47→21:00)
--- NOTE | 2023-05-20 13:53 | PHA.MEDREC ---
Pharmacy Consult ? Medication Reconciliation Pharmacy has completed the medication reconciliation with list from [facility].
[2023-05-20 14:06] VITALS: BP 125/40; RESP 20; TEMP 36.5
--- NOTE | 2023-05-20 14:26 | MHC.EDTECH ---
pulse ox was not able to read on finger, or toe, BP currently reading 125/40, rn aware of all.
[2023-05-20 16:04] LABS: Creatinine Clr Calc Pharmacy 47.8; Estimated Glomerular Filt Rate 41
[2023-05-20] MEDS: 0.9 % Sodium Chloride 1,000 ML 75 ML IVCONT (17:11)
--- NOTE | 2023-05-20 17:27 | PM.IMHP ---
History of Present Illness Date of Service: 05/20/23 Chief Complaint: Nausea and vomiting 67-year-old gentleman [facility] with past medical history of alcoholic cirrhosis, chronic indwelling urine catheter, orthostatic hypotension on midodrine, GERD, diabetes mellitus type 2 on insulin, recently discharged from [facility] on May 12 after requiring treatment for sepsis due to Proteus mirabilis bacteremia due to UTI Patient treated with IV ceftriaxone and was discharged home on Ceftin, during that hospitalization patient also underwent paracentesis peritoneal fluid cytology was negative for malignant cells and cultures were negative, patient was sent to [place] ED today due to decreased by mouth intake, recurrent nausea and vomiting since his discharge, at present patient seems to be confused but as per this is his baseline, he denies pain, offers no acute complaints of fever chills, headache, dizziness, no shortness of breath, no chest pain, no abdominal discomfort , labs showed hemoglobin 11.1, hematocrit 34.5, WBC 8.5 stable platelets, blood sugar 114, magnesium 1.8, stable LFTs, ammonia 29, albumin of 2.4, creatinine 1.67, with a normal creatinine of 1.19 on May 12, CT abdomen and pelvis showed cirrhotic liver, massive abdominal and pelvic ascites, gallstones, when compared to study of 04/30/2023 there was no change noted, patient treated in the emergency room with IV fluids and albumin and repeat creatinine remains unchanged therefore patient is being admitted to [facility] due to acute kidney injury. Review of Systems Review of Systems: General no headache, no dizziness ,no fever chills. CVS no chest pain, no palpitation. Respiratory no cough, no sob. Gastrointestinal nausea and vomiting, no abdominal pain All other system reviewed and negative [facility] Medical History 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 Orthostatic hypotension Chronic liver disease Type 2 diabetes mellitus Social History Household Members: Spouse Housing: House Patient Tobacco Use Status: Former Tobacco user Smoked in Last 30 Days: No Use of substances other than those prescribed or required for medical reasons: Yes Substance Use Type: Marijuana Substance Use Frequency: Occasionally Last Used Substance: Weeks (ago) Currently Displaying Signs/Symptoms of Drug Intoxication Withdrawal: No Any prior treatment program specific to substance use: No Have you been hit, kicked, punched, or otherwise hurt by someone within the past year? If so, by whom?: No Do you feel safe in your current relationship?: Yes Is there a partner from a previous relationship who is making you feel unsafe now?: No Are you made to feel afraid or neglected: No Advance Directives: No Advance Directives Information Provided: No Do you have thoughts of harming others: None Do you have a plan to hurt others: No Plan Recently lost weight without trying: Unsure How much weight loss: Unsure Eating poorly because of decreased appetite: No Nutrition screen score: 4 Nutrition Risks: No Nutritional Risk Poor oral hygiene: No service: No Meds Allergies Allergy/AdvReac Type Severity Reaction Status Date / Time lisinopril Allergy Angioedema Verified 04/30/23 17:28 scallops Allergy Angioedema Verified 04/30/23 17:28 Active Medications: Current Medications Bisacodyl (Bisacodyl 10 Mg Supp.Rect) 10 mg VT DAILY PRN PRN Reason: Constipation Folic Acid (Folic Acid 1 Mg Tablet) 1 mg PO DAILY [facility] Gabapentin (Gabapentin 100 Mg Capsule) 100 mg PO TID [facility] Sodium Chloride (Ns) 1,000 mls @ 75 mls/hr IVCONT .[id number] [facility] Last Admin: 05/20/23 17:11 Dose: 75 mls/hr Lactulose (Lactulose 20 Gm/30 Ml Solution) 30 gm PO TID MIRIAM Magnesium Hydroxide (Milk Of Magnesia 30 Ml Oral.Susp) 400 ml PO DAILY PRN PRN Reason: Constipation Melatonin (Melatonin 3 Mg Tablet) 3 mg PO BEDTIME MIRIAM Midodrine (Midodrine Hcl 10 Mg Tablet) 10 mg PO TID@0600,1200,1800 [facility] Multivitamins/Vitamin C (Multivitamin Tablet) 1 tab PO DAILY [facility] Naltrexone HCl (Naltrexone Hcl 50 Mg Tablet) 50 mg PO DAILY [facility] Rifaximin (Rifaximin 550 Mg Tablet) 550 mg PO BID MIRIAM Sertraline HCl (Sertraline Hcl 50 Mg Tablet) 50 mg PO DAILY [facility] Sodium Bicarbonate (Sodium Bicarbonate 650 Mg Tablet) 650 mg PO TID [facility] Sodium Biphosphate/Sodium Phosphate (Sodium Phosphate,[place]-Dibasic 133 Ml Enema) 118 ml VT DAILY PRN PRN Reason: Constipation Thiamine HCl (Thiamine Hcl 100 Mg Tablet) 100 mg PO DAILY [facility] Home Medications Medication Instructions Recorded Confirmed Last Taken Type acetaminophen 325 mg tablet 650 mg PO DAILY PRN Fever 04/30/23 05/20/23 Unknown History folic acid 1 mg tablet 1 mg PO DAILY 04/30/23 05/20/23 Unknown History gabapentin 100 mg capsule 100 mg PO TID 04/30/23 05/20/23 Unknown History insulin glargine 100 unit/mL (3 30 unit subcut BEDTIME 04/30/23 05/20/23 Unknown History mL) subcutaneous pen (Lantus Solostar U-100 Insulin) insulin lispro 100 unit/mL 0 sliding scale dose subcut TIDAC 04/30/23 05/20/23 Unknown History subcutaneous pen (Humalog KwikPen (U-100) Insulin) lactulose 10 gram/15 mL oral 45 ml PO TID 04/30/23 05/20/23 Unknown History solution melatonin 3 mg tablet 3 mg PO BEDTIME Sleep 04/30/23 05/20/23 Unknown History midodrine 10 mg tablet 10 mg PO TID@0600,1200,1800 04/30/23 05/20/23 Unknown History multivitamin 1 tab PO DAILY 04/30/23 05/20/23 Unknown History naltrexone 50 mg tablet 50 mg PO DAILY 04/30/23 05/20/23 Unknown History pantoprazole 40 mg tablet,delayed 40 mg PO DAILY@0600 04/30/23 05/20/23 Unknown History release rifaximin 550 mg tablet (Xifaxan) 550 mg PO BID 04/30/23 05/20/23 Unknown History sertraline 50 mg tablet 50 mg PO DAILY 04/30/23 05/20/23 Unknown History thiamine HCl (vitamin B1) 100 mg 100 mg PO DAILY 04/30/23 05/20/23 Unknown History tablet bisacodyl 10 mg rectal suppository 10 mg VT DAILY PRN Constipation 05/20/23 05/20/23 Unknown History magnesium hydroxide 400 mg/5 mL 400 ml PO DAILY PRN Constipation 05/20/23 05/20/23 Unknown History oral suspension (Milk of Magnesia) ondansetron HCl 4 mg tablet 4 mg PO Q4H PRN nausea/vomting 05/20/23 05/20/23 Unknown History sodium phosphates 19 gram-7 118 ml VT DAILY PRN Constipation 05/20/23 05/20/23 Unknown History gram/118 mL enema (Fleet Enema) Physical Exam Vital Signs and Narrative: Vital Signs: Last Vital Signs Temp 97.7 F 05/20/23 14:06 Pulse 85 05/20/23 11:35 Resp 20 05/20/23 14:06 BP 125/40 L 05/20/23 14:06 Pulse Ox 95 05/20/23 11:35 O2 Del Method Room Air 05/20/23 14:06 BMI result Body Mass Index 33.4 Const: Other: Gen: Awake alert, resting in bed, in no acute distress HEENT: sclera anicteric, moist mucus membranes Neck: supple, no JVD Lungs: clear to auscultation bilaterally Heart: regular rate and rhythm, no murmurs Abd: soft, non-tender, distended, bowel sounds audible, no guarding, no rigidity Ext: no edema Skin: warm/well-perfused Neuro: alert and oriented , no asterixis Psych: appropriate affect Results Labs 05/20/23 12:30 05/21/23 08:08 Labs: Laboratory Results - last 24 hr 05/20/23 05/20/23 05/20/23 12:30 12:31 15:48 MCV 92.2 MCH 29.7 MCHC 32.2 RDW 17.0 H Plt Count 370 D MPV 9.8 Immature Gran % (Auto) 0.5 H Neut % (Auto) 59.6 Lymph % (Auto) 29.9 [place] % (Auto) 6.8 Eos % (Auto) 1.8 Baso % (Auto) 1.4 Lymph # (Auto) 2.5 [place] # (Auto) 0.6 Eos # (Auto) 0.2 Baso # (Auto) 0.1 Abs Immat Gran (auto) 0.04 H Absolute Neuts (auto) 5.1 Absolute Nucleated RBC 0.000 Nucleated RBC % (auto) 0.0 Anion Gap 16 Estim Creat Clear Calc 47.8 47.8 Estimated GFR 41 41 Random Glucose 114 Calcium 8.8 Magnesium 1.8 Total Bilirubin 0.8 Direct Bilirubin 0.3 AST 34 ALT 17 Alkaline Phosphatase 92 Ammonia 29 Total Protein 6.3 L Albumin 2.4 L Lipase 10 Imaging Radiologist's Impressions: Impressions Abdomen/Pelvis CT 05/20/23 13:27 IMPRESSION: The liver is cirrhotic. There is massive abdominal and pelvic ascites. There are gallstones. When compared with CT abdomen pelvis dated April 30, 2023, these findings are essentially unchanged. Fleischner guidelines were followed. Assessment and Plan (1) PENNY (acute kidney injury): Status: Acute (2) Ascites: Qualifiers: Ascites type: due to alcoholic cirrhosis Qualified Code(s): K70.31 - Alcoholic cirrhosis of liver with ascites Status: Acute (3) Chronic indwelling Gordon catheter: Status: Acute Plan 67-year-old gentleman from [facility] facility with past medical history of alcohol leg cirrhosis, chronic indwelling urine catheter, orthostatic hypotension, GERD and diabetes mellitus sent to [facility] due to decreased by mouth intake, nausea and vomiting since his discharge from hospital patient recently treated for Proteus mirabilis bacteremia due to UTI, in the ED workup showed acute kidney injury, CT abdomen and pelvis is benign, patient is afebrile and hemodynamically stable. Nausea and vomiting: No evidence of infection CT and abdomen and pelvis showed massive ascites, gallstones findings essentially unchanged from recent CT abdomen pelvis of Apr. UA 1+ bacteria, no nitrates follow urine culture, Lung bases are clear on CT abdomen. IV antiemetics, supportive care, DC antibiotics. Acute kidney injury likely prerenal due to GI loss as above Treat with IV fluids, IV albumin ,hold nephrotoxins avoid hypotension Obtain Nephrology consult if noted to have worsening renal function. GERD continue PPI Chronic orthostatic hypotension continue midodrine. Diabetes mellitus type 2 on insulin continue diabetic diet, insulin sliding scale, decrease dose of Lantus to 15 units due to decreased by mouth intake, home dose 30 units at bedtime. Alcoholic cirrhosis with recurrent ascites, underwent paracentesis on 05/01 Patient noted to have ascites, asymptomatic, no fevers, no abdominal pain follow clinical course As per pt. has baseline confusion, normal ammonia level ,continue lactulose and rifaximin. Scheduled to undergo paracentesis at a.m. by IR Mood disorder continue sertraline Alcohol use disorder continue thiamine and naltrexone Chronic indwelling Gordon catheter. DVT prophylaxis with Lovenox subQ Disposition return to short-term rehab [facility] once medically stable In my clinical judgment patient requires 2 night inpatient hospitalization for management of PENNY requiring IV fluids/albumin and paracentesis. Quality Stroke Does the patient have a stroke diagnosis?: No VTE Prior VTE?: No VTE Risk Level:: Medical - moderate - high VTE Device Contraindication: Treatment Not Indicated VTE Drug Contraindication: N/A - Med Ordered
[2023-05-20 17:46] VITALS: BP 106/57; PULSE 80; RESP 20; TEMP 36.5; O2SAT 100
[2023-05-20 18:00] LABS: Appearance Urine Turbid; Color Urine Yellow; Glucose Urine UA Negative (Negative); Leukocyte Esterase Urine Moderate (2+) (Negative); Nitrite Urine Negative (Negative); PH 5.5 (5.0-9.0); Specific Gravity - Urine >= 1.030 (1.005-1.025); UMIC TRIGGER UACC YES; Urine Blood Large (3+) (Negative); Urine Ketones Negative (Negative); Urine Protein 100 (2+) mg/dL (Neg-Trace)
[2023-05-20] MEDS: ondansetron HCL 4 MG/2 ML VIAL IVPUSH (18:09)
[2023-05-20] MEDS: Enoxaparin Sodium 40 MG/0.4 ML SYRINGE SUBCUT (18:09)
[2023-05-20] MEDS: Acetaminophen 325 MG TABLET 650 MG PO (18:09)
[2023-05-20] MEDS: Midodrine HCl 10 MG TABLET PO (18:09)
[2023-05-20 18:27] LABS: Glucose, Whole Blood 122 mg/dL (60-115)
[2023-05-20 18:31] LABS: Bacteria Urine 1+ (None Seen); RBC Urine 0-2 /HPF (0-2); Squamous Epithelial Cell Urine 0-2 /HPF (0-2); UACC Culture Trigger YES; WBC Urine >50 /HPF (0-5)
[2023-05-20 18:32] LABS: Calcium Oxalate Crystals Urine Present; Hyaline Casts Urine 0-2 /LPF (0-2)
--- NOTE | 2023-05-20 19:50 | PC.NURSE ---
Received report from Tatiana GLYNN, assumed care of pt, pt reports needing to be changed, pt noted to have large bowel movement of liquid stool at this time, pt changed and bed linens changed.
[2023-05-20 20:03] VITALS: BP 114/56; PULSE 81; RESP 16; TEMP 36.4; O2SAT 100
[2023-05-20 20:42] VITALS: BMI 27.9
[2023-05-20] MEDS: rifAXIMin 550 MG TABLET PO (20:52)
[2023-05-20] MEDS: Gabapentin 100 MG CAPSULE PO (20:52)
[2023-05-20] MEDS: Sodium Bicarbonate 650 MG TABLET PO (20:52)
[2023-05-20] MEDS: Melatonin 3 MG TABLET PO (20:52)
[2023-05-20 22:37] LABS: Glucose, Whole Blood 125 mg/dL (60-115)
[2023-05-20] MEDS: Insulin Glargine,Hum.rec.anlog 100 UNIT/ML 10 ML VIAL 24 UNIT SUBCUT (22:58)
[2023-05-21] MEDS: Albumin Human 25 % 100 ML IV ×4 (01:04→20:47)
[2023-05-21 03:12] VITALS: BP 100/54; PULSE 89; RESP 16; TEMP 36.4; O2SAT 97
--- NOTE | 2023-05-21 03:22 | PC.NURSE ---
Approximately after 20:45, this RN medicated pt with his nighttime medication per MAY. After taking his PO medications, the pt was unable to hold them down and vomited all his PO medications including gabapentin, rifaximin, sodium bicarbonate, & melatonin. MIRIAM Lactulose was not given to pt due to n/v. Will continue to monitor pt's symptoms.
[2023-05-21] MEDS: Midodrine HCl 10 MG TABLET PO ×3 (05:56→17:12)
[2023-05-21] MEDS: 0.9 % Sodium Chloride 1,000 ML 75 ML IVCONT (05:58)
[2023-05-21 07:21] LABS: Glucose, Whole Blood 91 mg/dL (60-115)
[2023-05-21 07:35] VITALS: BP 103/58; PULSE 60; RESP 16; TEMP 36; O2SAT 95
[2023-05-21] MEDS: Lactulose 20 GM/30 ML SOLUTION 30 GM PO (08:15)
[2023-05-21] MEDS: Multivitamin TABLET 1 TAB PO (08:17)
[2023-05-21] MEDS: Sodium Bicarbonate 650 MG TABLET PO ×3 (08:17→20:40)
[2023-05-21] MEDS: Gabapentin 100 MG CAPSULE PO ×3 (08:17→20:40)
[2023-05-21] MEDS: Naltrexone HCl 50 MG TABLET PO (08:17)
[2023-05-21] MEDS: Thiamine HCL 100 MG TABLET PO (08:17)
[2023-05-21] MEDS: Folic Acid 1 MG TABLET PO (08:17)
[2023-05-21] MEDS: Sertraline HCL 50 MG TABLET PO (08:17)
[2023-05-21] MEDS: rifAXIMin 550 MG TABLET PO ×2 (08:17→20:40)
[2023-05-21 08:47] LABS: INTERNATIONAL NORM RATIO 1.4 (0.9-1.1); Prothrombin Time 16.9 SEC (11.1-13.3)
[2023-05-21 08:57] LABS: Blood Urea Nitrogen 21 mg/dL (9-16); Calcium 8.4 mg/dL (8.4-10.2); Creatinine Clr Calc Pharmacy 40.9; Estimated Glomerular Filt Rate 38; Glucose Random 100 mg/dL (60-115)
[2023-05-21 09:06] LABS: Anion Gap 10 (12-20); Carbon Dioxide 21 mmol/L (22-29); Chloride 115 mmol/L (96-108); Potassium 3.4 mmol/L (3.3-5.1); Sodium 143 mmol/L (135-145)
[2023-05-21] MEDS: Lidocaine HCl 1 % MPF 5 ML VIAL SUBCUT (10:16)
[2023-05-21 10:36] LABS: MN% 89.2 %; PMN% 10.8 %; WBC Peritoneal Fluid 0.083 X10*3/uL
[2023-05-21 10:42] LABS: RBC Peritoneal Fluid < 0.002 X10*6/uL
--- NOTE | 2023-05-21 11:06 | PM.CNNEP ---
History of Present Illness Reason for Consult Consult date: 05/21/23 Reason for consult: PENNY Chief Complaint Chief complaint: Nausea/vomiting History of Present Illness Narrative: 67-year-old man, [facility] with a history of alcoholic cirrhosis, chronic indwelling urine catheter, orthostatic hypotension on midodrine, GERD, diabetes mellitus type 2 on insulin, recently discharged from [facility] on May 12 after requiring treatment for sepsis due to Proteus mirabilis bacteremia due to UTI Patient treated with IV ceftriaxone and was discharged home on Ceftin, during that hospitalization patient also underwent paracentesis peritoneal fluid cytology was negative for malignant cells and cultures were negative, patient was sent to [place] ED today due to decreased by mouth intake, recurrent nausea and vomiting since his discharge, at present patient seems to be confused but as per this is his baseline, he denies pain, offers no acute complaints of fever chills, headache, dizziness, no shortness of breath, no chest pain, no abdominal discomfort Review of Systems Review of Systems Yes all other systems are reviewed and are negative PMFSH Past Medical History Medical History 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 Orthostatic hypotension Chronic liver disease Type 2 diabetes mellitus Social History Social History Household Members: Spouse Housing: House Patient Tobacco Use Status: Former Tobacco user Smoked in Last 30 Days: No Use of substances other than those prescribed or required for medical reasons: Yes Substance Use Type: Marijuana Substance Use Frequency: Occasionally Last Used Substance: Weeks (ago) Currently Displaying Signs/Symptoms of Drug Intoxication Withdrawal: No Any prior treatment program specific to substance use: No Have you been hit, kicked, punched, or otherwise hurt by someone within the past year? If so, by whom?: No Do you feel safe in your current relationship?: Yes Is there a partner from a previous relationship who is making you feel unsafe now?: No Are you made to feel afraid or neglected: No Advance Directives: No Advance Directives Information Provided: No Do you have thoughts of harming others: None Do you have a plan to hurt others: No Plan Recently lost weight without trying: Unsure How much weight loss: Unsure Eating poorly because of decreased appetite: No Nutrition screen score: 4 Nutrition Risks: No Nutritional Risk Poor oral hygiene: No service: No Meds Allergies Allergy/AdvReac Type Severity Reaction Status Date / Time lisinopril Allergy Angioedema Verified 04/30/23 17:28 scallops Allergy Angioedema Verified 04/30/23 17:28 Active Medications: Current Medications Acetaminophen (Acetaminophen 325 Mg Tablet) 650 mg PO Q6H PRN PRN Reason: Pain, Mild (Pain Scale 1-3) Last Admin: 05/20/23 18:09 Dose: 650 mg Bisacodyl (Bisacodyl 10 Mg Supp.Rect) 10 mg ND DAILY PRN PRN Reason: Constipation Dextrose (Dextrose 50 % 25 Gm/50 Ml Syringe) 25 gm IVPUSH Q15M PRN; Protocol PRN Reason: per Hypoglycemia Standing Ord. Enoxaparin Sodium (Enoxaparin Sodium 40 Mg/0.4 Ml Syringe) 40 mg SUBCUT Q24H [facility] Last Admin: 05/20/23 18:09 Dose: 40 mg Folic Acid (Folic Acid 1 Mg Tablet) 1 mg PO DAILY [facility] Last Admin: 05/21/23 08:17 Dose: 1 mg Gabapentin (Gabapentin 100 Mg Capsule) 100 mg PO TID [facility] Last Admin: 05/21/23 08:17 Dose: 100 mg Glucose (Glucose Gel 15 Gm Gel..Gram.) 15 gm PO Q15M PRN; Protocol PRN Reason: per Hypoglycemia Standing Ord. Albumin Human (Kedbumin 25 %) 100 mls @ 100 mls/hr IV Q6H [facility] Stop: 05/22/23 04:44 Last Admin: 05/21/23 10:44 Dose: 100 mls/hr Insulin Glargine (Insulin Glargine,Hum.Rec.Anlog 100 Unit/Ml 10 Ml Vial) 24 unit SUBCUT BEDTIME [facility] Last Admin: 05/20/23 22:58 Dose: 24 unit Insulin Human Lispro (Insulin Lispro 100 Unit/Ml 3 Ml Vial) 0 unit SUBCUT QIDACHS [facility]; Protocol Last Admin: 05/21/23 07:25 Dose: Not Given Lactulose (Lactulose 20 Gm/30 Ml Solution) 30 gm PO TID [facility] Last Admin: 05/21/23 08:15 Dose: 30 gm Magnesium Hydroxide (Milk Of Magnesia 30 Ml Oral.Susp) 400 ml PO DAILY PRN PRN Reason: Constipation Melatonin (Melatonin 3 Mg Tablet) 3 mg PO BEDTIME [facility] Last Admin: 05/20/23 20:52 Dose: 3 mg Midodrine (Midodrine Hcl 10 Mg Tablet) 10 mg PO TID@0600,1200,1800 [facility] Last Admin: 05/21/23 05:56 Dose: 10 mg Multivitamins/Vitamin C (Multivitamin Tablet) 1 tab PO DAILY [facility] Last Admin: 05/21/23 08:17 Dose: 1 tab Naltrexone HCl (Naltrexone Hcl 50 Mg Tablet) 50 mg PO DAILY [facility] Last Admin: 05/21/23 08:17 Dose: 50 mg Ondansetron HCl (Ondansetron Hcl 4 Mg/2 Ml Vial) 4 mg IVPUSH Q8H PRN PRN Reason: Nausea and Vomiting Last Admin: 05/20/23 18:09 Dose: 4 mg Rifaximin (Rifaximin 550 Mg Tablet) 550 mg PO BID [facility] Last Admin: 05/21/23 08:17 Dose: 550 mg Sertraline HCl (Sertraline Hcl 50 Mg Tablet) 50 mg PO DAILY [facility] Last Admin: 05/21/23 08:17 Dose: 50 mg Sodium Bicarbonate (Sodium Bicarbonate 650 Mg Tablet) 650 mg PO TID [facility] Last Admin: 05/21/23 08:17 Dose: 650 mg Sodium Biphosphate/Sodium Phosphate (Sodium Phosphate,[place]-Dibasic 133 Ml Enema) 118 ml ND DAILY PRN PRN Reason: Constipation Sodium Chloride (0.9 % Sodium Chloride Flush 3 Ml Syringe) 3 ml IVFLUSH QSHIFT [facility] Last Admin: 05/21/23 07:26 Dose: Not Given Thiamine HCl (Thiamine Hcl 100 Mg Tablet) 100 mg PO DAILY [facility] Last Admin: 05/21/23 08:17 Dose: 100 mg Home Medications Medication Instructions Recorded Confirmed Last Taken Type acetaminophen 325 mg tablet 650 mg PO DAILY PRN Fever 04/30/23 05/20/23 Unknown History folic acid 1 mg tablet 1 mg PO DAILY 04/30/23 05/20/23 Unknown History gabapentin 100 mg capsule 100 mg PO TID 04/30/23 05/20/23 Unknown History insulin glargine 100 unit/mL (3 30 unit subcut BEDTIME 04/30/23 05/20/23 Unknown History mL) subcutaneous pen (Lantus Solostar U-100 Insulin) insulin lispro 100 unit/mL 0 sliding scale dose subcut TIDAC 04/30/23 05/20/23 Unknown History subcutaneous pen (Humalog KwikPen (U-100) Insulin) lactulose 10 gram/15 mL oral 45 ml PO TID 04/30/23 05/20/23 Unknown History solution melatonin 3 mg tablet 3 mg PO BEDTIME Sleep 04/30/23 05/20/23 Unknown History midodrine 10 mg tablet 10 mg PO TID@0600,1200,1800 04/30/23 05/20/23 Unknown History multivitamin 1 tab PO DAILY 04/30/23 05/20/23 Unknown History naltrexone 50 mg tablet 50 mg PO DAILY 04/30/23 05/20/23 Unknown History pantoprazole 40 mg tablet,delayed 40 mg PO DAILY@0600 04/30/23 05/20/23 Unknown History release rifaximin 550 mg tablet (Xifaxan) 550 mg PO BID 04/30/23 05/20/23 Unknown History sertraline 50 mg tablet 50 mg PO DAILY 04/30/23 05/20/23 Unknown History thiamine HCl (vitamin B1) 100 mg 100 mg PO DAILY 04/30/23 05/20/23 Unknown History tablet bisacodyl 10 mg rectal suppository 10 mg ND DAILY PRN Constipation 05/20/23 05/20/23 Unknown History magnesium hydroxide 400 mg/5 mL 400 ml PO DAILY PRN Constipation 05/20/23 05/20/23 Unknown History oral suspension (Milk of Magnesia) ondansetron HCl 4 mg tablet 4 mg PO Q4H PRN nausea/vomting 05/20/23 05/20/23 Unknown History sodium phosphates 19 gram-7 118 ml ND DAILY PRN Constipation 05/20/23 05/20/23 Unknown History gram/118 mL enema (Fleet Enema) Physical Exam Vital Signs: Last Vital Signs Temp 96.8 F 05/21/23 07:35 Pulse 60 05/21/23 07:35 Resp 16 05/21/23 07:35 BP 103/58 L 05/21/23 07:35 Pulse Ox 95 05/21/23 07:35 O2 Del Method Room Air 05/21/23 07:35 BMI result Body Mass Index 27.9 Appearance: Alert. Oriented X3. No acute distress. Eyes: Pupils equal, round and reactive to light. ENT: Pharynx normal. Neck: Normal inspection. Neck supple. CVS: Normal heart rate and rhythm. Pulses normal. Respiratory: No respiratory distress. Breath sounds normal. Abdomen: Soft nontender but with moderate ascites Skin: Skin warm and dry. Normal skin color. Normal skin turgor. Extremities: No lower extremity edema. No calf ttp Neuro: Oriented X 3. No motor deficit. No sensory deficit. Results Lab Results 05/20/23 12:30 05/21/23 08:08 Lab results: Chemistry 05/20/23 05/20/23 05/21/23 12:30 15:48 08:08 Sodium 142 143 Potassium 4.7 3.4 D Carbon Dioxide 19 L 21 L BUN 22 H 21 H Creatinine 1.67 H 1.67 H 1.79 H Calcium 8.8 8.4 Hematology 05/20/23 12:30 WBC 8.5 Hgb 11.1 L Plt Count 370 D Urinalysis 05/20/23 17:49 Urine Color Yellow Urine Appearance Turbid Urine pH 5.5 Ur Specific [place] >= 1.030 H Urine Protein 100 (2+) H Urine Glucose (UA) Negative Urine Ketones Negative Urine Blood Large (3+) H Urine Nitrite Negative Ur Leukocyte Esterase Moderate (2+) H Urine RBC 0-2 Urine WBC >50 H Ur Squamous Epith Cells 0-2 Hyaline Casts 0-2 Assessment and Plan (1) PENNY (acute kidney injury): Status: Acute (2) Ascites: Qualifiers: Ascites type: due to alcoholic cirrhosis Qualified Code(s): K70.31 - Alcoholic cirrhosis of liver with ascites Status: Acute (3) Chronic indwelling Gordon catheter: Status: Acute (4) Acute on chronic anemia: Status: Acute Plan 67 yr old man with DOUGIE superimpose don CKD 3 DDX for PENNY : Hypoperfusion from volume depletion /low BP Possible tubular injury/ATN r/o AiN and AGN No obstruction based on CT scan r/o Compartment syndrome from tense ascites Suggest Check urine Na, Cr, Eosinophils, protein Keep SBP > 100 Keep I > O with NS Avoid nephrotoxins Paracenthesis to reduce intraabdominal pressure Watch urine out put No indication for dialysis Procedures Date of Service Date of Service: 05/21/23
[2023-05-21 11:12] LABS: BF Shift QC OK YES; Lymphocyte Peritoneal Fl 36 %; Man Diluent Bkgrd OK YES; Monocytes Peritoneal Fl 14 %; Neutrophils Peritoneal Fluid 10 %; Other Peritioneal Fl 40 %
[2023-05-21 11:23] LABS: Glucose, Whole Blood 59 mg/dL (60-115)
[2023-05-21 11:45] LABS: Glucose, Whole Blood 44 mg/dL (60-115)
--- NOTE | 2023-05-21 12:38 | HO.PM.IMPN ---
Subjective Subjective Date of Service: 05/21/23 Interval History: Offers no acute complaints this morning, resting comfortably in bed scheduled to undergo paracentesis, no acute events overnight, denies fever, no chills, no headache, no dizziness, no shortness of breath, no chest pain, no abdominal discomfort, no diarrhea. Review of Systems All other system reviewed and negative. Physical Exam Vital Signs: Vital Signs: Last Vital Signs Temp 96.8 F 05/21/23 07:35 Pulse 60 05/21/23 07:35 Resp 16 05/21/23 07:35 BP 103/58 L 05/21/23 07:35 Pulse Ox 95 05/21/23 07:35 O2 Del Method Room Air 05/21/23 07:35 BMI result Body Mass Index 27.9 Objective Data Active Medications Acetaminophen (Acetaminophen 325 Mg Tablet) 650 mg PO Q6H PRN PRN Reason: Pain, Mild (Pain Scale 1-3) Last Admin: 05/20/23 18:09 Dose: 650 mg Documented By: HOWARD Bisacodyl (Bisacodyl 10 Mg Supp.Rect) 10 mg [place] DAILY PRN PRN Reason: Constipation Dextrose (Dextrose 50 % 25 Gm/50 Ml Syringe) 25 gm IVPUSH Q15M PRN; Protocol PRN Reason: per Hypoglycemia Standing Ord. Enoxaparin Sodium (Enoxaparin Sodium 40 Mg/0.4 Ml Syringe) 40 mg SUBCUT Q24H [facility] Last Admin: 05/20/23 18:09 Dose: 40 mg Documented By: HOWARD Folic Acid (Folic Acid 1 Mg Tablet) 1 mg PO DAILY [facility] Last Admin: 05/21/23 08:17 Dose: 1 mg Documented By: YUE Gabapentin (Gabapentin 100 Mg Capsule) 100 mg PO TID [facility] Last Admin: 05/21/23 08:17 Dose: 100 mg Documented By: YUE Glucose (Glucose Gel 15 Gm Gel..Gram.) 15 gm PO Q15M PRN; Protocol PRN Reason: per Hypoglycemia Standing Ord. Albumin Human (Kedbumin 25 %) 100 mls @ 100 mls/hr IV Q6H [facility] Stop: 05/22/23 04:44 Last Infusion: 05/21/23 12:14 Dose: Infused Documented By: YUE Insulin Glargine (Insulin Glargine,Hum.Rec.Anlog 100 Unit/Ml 10 Ml Vial) 24 unit SUBCUT BEDTIME [facility] Last Admin: 05/20/23 22:58 Dose: 24 unit Documented By: KARMA Insulin Human Lispro (Insulin Lispro 100 Unit/Ml 3 Ml Vial) 0 unit SUBCUT QIDACHS [facility]; Protocol Last Admin: 05/21/23 12:13 Dose: Not Given Documented By: YUE Non-Admin Reason: No Insulin Coverage Lactulose (Lactulose 20 Gm/30 Ml Solution) 30 gm PO TID [facility] Last Admin: 05/21/23 08:15 Dose: 30 gm Documented By: YUE Magnesium Hydroxide (Milk Of Magnesia 30 Ml Oral.Susp) 400 ml PO DAILY PRN PRN Reason: Constipation Melatonin (Melatonin 3 Mg Tablet) 3 mg PO BEDTIME [facility] Last Admin: 05/20/23 20:52 Dose: 3 mg Documented By: KARMA Midodrine (Midodrine Hcl 10 Mg Tablet) 10 mg PO TID@0600,1200,1800 [facility] Last Admin: 05/21/23 12:11 Dose: 10 mg Documented By: YUE Multivitamins/Vitamin C (Multivitamin Tablet) 1 tab PO DAILY [facility] Last Admin: 05/21/23 08:17 Dose: 1 tab Documented By: YUE Naltrexone HCl (Naltrexone Hcl 50 Mg Tablet) 50 mg PO DAILY [facility] Last Admin: 05/21/23 08:17 Dose: 50 mg Documented By: YUE Ondansetron HCl (Ondansetron Hcl 4 Mg/2 Ml Vial) 4 mg IVPUSH Q8H PRN PRN Reason: Nausea and Vomiting Last Admin: 05/20/23 18:09 Dose: 4 mg Documented By: HOWARD Rifaximin (Rifaximin 550 Mg Tablet) 550 mg PO BID [facility] Last Admin: 05/21/23 08:17 Dose: 550 mg Documented By: YUE Sertraline HCl (Sertraline Hcl 50 Mg Tablet) 50 mg PO DAILY [facility] Last Admin: 05/21/23 08:17 Dose: 50 mg Documented By: YUE Sodium Bicarbonate (Sodium Bicarbonate 650 Mg Tablet) 650 mg PO TID [facility] Last Admin: 05/21/23 08:17 Dose: 650 mg Documented By: YUE Sodium Biphosphate/Sodium Phosphate (Sodium Phosphate,[place]-Dibasic 133 Ml Enema) 118 ml [place] DAILY PRN PRN Reason: Constipation Sodium Chloride (0.9 % Sodium Chloride Flush 3 Ml Syringe) 3 ml IVFLUSH QSHIFT [facility] Last Admin: 05/21/23 07:26 Dose: Not Given Documented By: YUE Non-Admin Reason: IV Running Thiamine HCl (Thiamine Hcl 100 Mg Tablet) 100 mg PO DAILY [facility] Last Admin: 05/21/23 08:17 Dose: 100 mg Documented By: YUE Labs 05/20/23 12:30 05/21/23 08:08 Labs: Laboratory Results - last 24 hr 05/20/23 05/20/23 05/20/23 12:30 12:31 15:48 MCV 92.2 MCH 29.7 MCHC 32.2 RDW 17.0 H Plt Count 370 D MPV 9.8 Immature Gran % (Auto) 0.5 H Neut % (Auto) 59.6 Lymph % (Auto) 29.9 Hughes % (Auto) 6.8 Eos % (Auto) 1.8 Baso % (Auto) 1.4 Lymph # (Auto) 2.5 Hughes # (Auto) 0.6 Eos # (Auto) 0.2 Baso # (Auto) 0.1 Abs Immat Gran (auto) 0.04 H Absolute Neuts (auto) 5.1 Absolute Nucleated RBC 0.000 Nucleated RBC % (auto) 0.0 Hold Purple Top PT INR Anion Gap 16 Estim Creat Clear Calc 47.8 47.8 Estimated GFR 41 41 POC Glucose Random Glucose 114 Calcium 8.8 Magnesium 1.8 Total Bilirubin 0.8 Direct Bilirubin 0.3 AST 34 ALT 17 Alkaline Phosphatase 92 Ammonia 29 Total Protein 6.3 L Albumin 2.4 L Lipase 10 Urine Color Urine Appearance Urine pH Ur Specific [place] Urine Protein Urine Glucose (UA) Urine Ketones Urine Blood Urine Nitrite Ur Leukocyte Esterase Urine RBC Urine WBC Ur Squamous Epith Cells Calcium Oxalate Crystal Urine Bacteria Hyaline Casts Urine Yeast Peritoneal WBC Peritoneal RBC Periton Neutrophils Periton Lymphocytes Peritoneal Monocytes Peritoneal Other Cells 05/20/23 05/20/23 05/20/23 17:49 18:23 22:31 MCV MCH MCHC RDW Plt Count MPV Immature Gran % (Auto) Neut % (Auto) Lymph % (Auto) Hughes % (Auto) Eos % (Auto) Baso % (Auto) Lymph # (Auto) Hughes # (Auto) Eos # (Auto) Baso # (Auto) Abs Immat Gran (auto) Absolute Neuts (auto) Absolute Nucleated RBC Nucleated RBC % (auto) Hold Purple Top PT INR Anion Gap Estim Creat Clear Calc Estimated GFR POC Glucose 122 H 125 H Random Glucose Calcium Magnesium Total Bilirubin Direct Bilirubin AST ALT Alkaline Phosphatase Ammonia Total Protein Albumin Lipase Urine Color Yellow Urine Appearance Turbid Urine pH 5.5 Ur Specific [place] >= 1.030 H Urine Protein 100 (2+) H Urine Glucose (UA) Negative Urine Ketones Negative Urine Blood Large (3+) H Urine Nitrite Negative Ur Leukocyte Esterase Moderate (2+) H Urine RBC 0-2 Urine WBC >50 H Ur Squamous Epith Cells 0-2 Calcium Oxalate Crystal Present Urine Bacteria 1+ Hyaline Casts 0-2 Urine Yeast Present Peritoneal WBC Peritoneal RBC Periton Neutrophils Periton Lymphocytes Peritoneal Monocytes Peritoneal Other Cells 05/21/23 05/21/23 05/21/23 07:13 08:08 10:00 MCV MCH MCHC RDW Plt Count MPV Immature Gran % (Auto) Neut % (Auto) Lymph % (Auto) Hughes % (Auto) Eos % (Auto) Baso % (Auto) Lymph # (Auto) Hughes # (Auto) Eos # (Auto) Baso # (Auto) Abs Immat Gran (auto) Absolute Neuts (auto) Absolute Nucleated RBC Nucleated RBC % (auto) Hold Purple Top SEE NOTE PT 16.9 H INR 1.4 H Anion Gap 10 L Estim Creat Clear Calc 40.9 Estimated GFR 38 POC Glucose 91 Random Glucose 100 Calcium 8.4 Magnesium Total Bilirubin Direct Bilirubin AST ALT Alkaline Phosphatase Ammonia Total Protein Albumin Lipase Urine Color Urine Appearance Urine pH Ur Specific [place] Urine Protein Urine Glucose (UA) Urine Ketones Urine Blood Urine Nitrite Ur Leukocyte Esterase Urine RBC Urine WBC Ur Squamous Epith Cells Calcium Oxalate Crystal Urine Bacteria Hyaline Casts Urine Yeast Peritoneal WBC 0.083 Peritoneal RBC < 0.002 Periton Neutrophils 10 Periton Lymphocytes 36 Peritoneal Monocytes 14 Peritoneal Other Cells 40 05/21/23 05/21/23 11:19 11:41 MCV MCH MCHC RDW Plt Count MPV Immature Gran % (Auto) Neut % (Auto) Lymph % (Auto) [place] % (Auto) Eos % (Auto) Baso % (Auto) Lymph # (Auto) Hughes # (Auto) Eos # (Auto) Baso # (Auto) Abs Immat Gran (auto) Absolute Neuts (auto) Absolute Nucleated RBC Nucleated RBC % (auto) Hold Purple Top PT INR Anion Gap Estim Creat Clear Calc Estimated GFR POC Glucose 59 L* 44 L* Random Glucose Calcium Magnesium Total Bilirubin Direct Bilirubin AST ALT Alkaline Phosphatase Ammonia Total Protein Albumin Lipase Urine Color Urine Appearance Urine pH Ur Specific [place] Urine Protein Urine Glucose (UA) Urine Ketones Urine Blood Urine Nitrite Ur Leukocyte Esterase Urine RBC Urine WBC Ur Squamous Epith Cells Calcium Oxalate Crystal Urine Bacteria Hyaline Casts Urine Yeast Peritoneal WBC Peritoneal RBC Periton Neutrophils Periton Lymphocytes Peritoneal Monocytes Peritoneal Other Cells Microbiology Microbiology Results: Microbiology 05/20/23 18:32 Urine Culture - Preliminary Urine clean catch No growth to date. Assessment and Plan (1) PENNY (acute kidney injury): Status: Acute (2) Ascites: Status: Acute Plan 67-year-[facility] with past medical history of alcohol leg cirrhosis, chronic indwelling urine catheter, orthostatic hypotension, GERD and diabetes mellitus sent to [facility] due to decreased by mouth intake, nausea and vomiting since his discharge from hospital patient recently treated for Proteus mirabilis bacteremia due to UTI, in the ED workup showed acute kidney injury, CT abdomen and pelvis is benign, patient is afebrile and hemodynamically stable. Nausea and vomiting: Resolved CT abdomen and pelvis showed massive ascites, gallstones, findings unchanged from recent CT abdomen pelvis of Apr. UA 1+ bacteria, no nitrates, urine culture no growth, Lung bases are clear on CT abdomen. Continue supportive care, Antibiotics discontinued. Acute kidney injury likely prerenal due to GI loss /low BP, no obstruction noted on CT abdomen Creatinine bumped from 1.67-1.79 today Continue IV fluids, IV albumin ,hold nephrotoxins avoid hypotension Seen by nephrology, they recommend urine studies to rule out AIN/AGN Follow-up BMP GERD continue PPI Chronic orthostatic hypotension continue midodrine. Diabetes mellitus type 2 with hypoglycemia : noted to have hypoglycemia due to poor by mouth intake, continue diabetic diet, insulin sliding scale, dc Lantus , home dose Lantus 30 units at bedtime. Alcoholic cirrhosis with recurrent ascites, underwent paracentesis on 05/01 ascites, asymptomatic, no fevers, no abdominal pain follow clinical course As per pt. has baseline confusion, normal ammonia level ,continue lactulose and rifaximin. Underwent therapeutic paracentesis by IR this a.m. 5 L removed Mood disorder: continue sertraline Alcohol use disorder : continue thiamine and naltrexone Chronic indwelling Gordon catheter. DVT prophylaxis with Lovenox subQ Disposition: return to short-term rehab [facility] once medically stable In my clinical judgment patient requires 2 night inpatient hospitalization for management of PENNY requiring IV fluids/albumin and paracentesis. Hypoperfusion from volume depletion /low BP Possible tubular injury/ATN r/o AiN and AGN No obstruction based on CT scan r/o Compartment syndrome from tense ascites Quality Stroke Does the patient have a stroke diagnosis?: No VTE Prior VTE?: No VTE Risk Level:: Medical - moderate - high VTE Device Contraindication: Treatment Not Indicated VTE Drug Contraindication: N/A - Med Ordered
[2023-05-21 12:55] LABS: Glucose, Whole Blood 95 mg/dL (60-115)
[2023-05-21] MEDS: Lactated Ringers 1,000 ML 80 ML IVCONT (13:23)
[2023-05-21] MEDS: Lidocaine 4 % Patch ADH..PATCH 1 PATCH TRANSDERMA (14:32)
[2023-05-21 15:33] VITALS: BP 99/52; PULSE 70; RESP 18; TEMP 36.2
--- NOTE | 2023-05-21 15:55 | MHC.CM.PN ---
IMM 05/21/23 MALE 67 DX N/V HE HAD BEEN LIVING WITH HIS AND DTR, UNTIL RECENTLY. He comes to us from [facility]. He was there for STR. He is a bed hold. Patients spouse states that they have been paying for the SNF except when he returns from the hospital; because he qualifies for STR, insurance covers rehab. He is a bedhold at [facility]. He will transport via S.
[2023-05-21 16:22] LABS: Glucose, Whole Blood 113 mg/dL (60-115)
--- NOTE | 2023-05-21 16:33 | PC.NURSE ---
@ 11:19 POC 57. notified and given 2 15g carbs juice. Rechecked @11:41 for 44. notified- tray for lunch was in the room w orange juice. Pt asymptomatic and allowed to eat lunch. POC rechecked @ 12:51 for 95.
[2023-05-21 16:38] VITALS: O2SAT 100
[2023-05-21] MEDS: Enoxaparin Sodium 40 MG/0.4 ML SYRINGE SUBCUT (17:12)
[2023-05-21 20:00] VITALS: BP 104/50; PULSE 60; RESP 18; TEMP 36.8; O2SAT 99
[2023-05-21 20:34] LABS: Glucose, Whole Blood 146 mg/dL (60-115)
[2023-05-21] MEDS: Melatonin 3 MG TABLET PO (20:40)
[2023-05-21 21:27] LABS: Creatinine Urine 225.06 mg/dL; Total Protein Urine Random 122 mg/dL (<12)
[2023-05-22] MEDS: Lactated Ringers 1,000 ML 100 ML IVCONT ×2 (00:58→14:50)
[2023-05-22] MEDS: Albumin Human 25 % 100 ML IV (03:16)
[2023-05-22 03:28] VITALS: BP 108/50; PULSE 55; RESP 16; TEMP 36.2; O2SAT 96
[2023-05-22] MEDS: Midodrine HCl 10 MG TABLET PO ×3 (05:53→18:01)
--- NOTE | 2023-05-22 06:34 | PC.NURSE ---
pt left forearm IV line got infiltrated, provided heat pack. tried three different nurses to established the IV line but failed all. service and repair supervisor notified to utilize ultrasound guide IV line but no one availbe at this time. will pass along to day nurse and continue to monitor.
[2023-05-22 06:53] LABS: Anion Gap 14 (12-20); Blood Urea Nitrogen 18 mg/dL (9-16); Calcium 8.4 mg/dL (8.4-10.2); Carbon Dioxide 22 mmol/L (22-29); Chloride 112 mmol/L (96-108); Creatinine Clr Calc Pharmacy 42.3; Estimated Glomerular Filt Rate 39; Glucose Random 103 mg/dL (60-115); Potassium 3.9 mmol/L (3.3-5.1); Sodium 144 mmol/L (135-145)
[2023-05-22 07:11] LABS: Glucose, Whole Blood 100 mg/dL (60-115)
[2023-05-22 07:13] VITALS: BP 99/53; PULSE 56; RESP 12; TEMP 36.2; O2SAT 97
[2023-05-22] MEDS: Thiamine HCL 100 MG TABLET PO (08:39)
[2023-05-22] MEDS: Sertraline HCL 50 MG TABLET PO (08:39)
[2023-05-22] MEDS: Folic Acid 1 MG TABLET PO (08:39)
[2023-05-22] MEDS: Gabapentin 100 MG CAPSULE PO ×3 (08:39→20:49)
[2023-05-22] MEDS: rifAXIMin 550 MG TABLET PO ×2 (08:39→20:49)
[2023-05-22] MEDS: Sodium Bicarbonate 650 MG TABLET PO ×3 (08:39→20:49)
[2023-05-22] MEDS: Naltrexone HCl 50 MG TABLET PO (08:39)
[2023-05-22] MEDS: Multivitamin TABLET 1 TAB PO (08:39)
[2023-05-22] MEDS: Lidocaine 4 % Patch ADH..PATCH 1 PATCH TRANSDERMA (08:40)
[2023-05-22 09:01] LABS: EOS Counted 2 CELLS; EOS QC POS YES; EOS Stain Quality OK YES; WBC, Counted 100 CELLS
[2023-05-22 11:06] LABS: Glucose, Whole Blood 115 mg/dL (60-115)
--- NOTE | 2023-05-22 13:29 | P.PNNP_ITS ---
Subjective Subjective Date of Service: 05/22/23 Interval history: Events noted. All recent data reviewed. Renal functions stable. Physical Exam 2 Vital Signs: Vital Signs: Last Vital Signs Temp 97.1 F 05/22/23 07:13 Pulse 56 05/22/23 07:13 Resp 12 05/22/23 07:13 BP 99/53 L 05/22/23 07:13 Pulse Ox 97 05/22/23 07:13 O2 Del Method Room Air 05/22/23 07:13 BMI result Body Mass Index 27.9 Const: General: comfortable and no acute distress O rientation/consciousness: patient oriented x3 HEENT: Head: Yes normocephalic Mouth: Normal oral and palatal mucosa present Eyes: EOM: EOMs intact bilaterally Neck: Neck: Yes supple Resp: Auscultation: diminished lung sounds Cardio: Jugular venous distension: no JVD Rate: regular rate GI: Palpation (GI): Soft to palpation Auscultation: normal bowel sounds : General: Yes no CVA tenderness Back/Spine/Pelvis: Back: no CVA tenderness Skin: General skin exam: no rashes or lesions noted Neuro: General: patient oriented x3 and moves all extremities Extrem: General: Yes no pedal edema Objective Data Labs 05/20/23 12:30 05/22/23 06:21 Labs: Laboratory Results - last 24 hr 05/21/23 05/21/23 05/21/23 16:15 20:21 20:54 Hold Purple Top Sodium Potassium Chloride Carbon Dioxide Anion Gap BUN Creatinine Estim Creat Clear Calc Estimated GFR POC Glucose 113 146 H Random Glucose Calcium Urine Eosinophils % 2.0 U Random Total Protein 122 H Ur Random Sodium Cancelled Urine Creatinine 05/21/23 05/21/23 05/22/23 20:54 20:54 06:21 Hold Purple Top SEE NOTE Sodium 144 Potassium 3.9 Chloride 112 H Carbon Dioxide 22 Anion Gap 14 BUN 18 H Creatinine 1.73 H Estim Creat Clear Calc 42.3 Estimated GFR 39 POC Glucose Random Glucose 103 Calcium 8.4 Urine Eosinophils % U Random Total Protein Ur Random Sodium 41.0 Urine Creatinine Cancelled 225.06 05/22/23 05/22/23 07:07 10:57 Hold Purple Top Sodium Potassium Chloride Carbon Dioxide Anion Gap BUN Creatinine Estim Creat Clear Calc Estimated GFR POC Glucose 100 115 Random Glucose Calcium Urine Eosinophils % U Random Total Protein Ur Random Sodium Urine Creatinine Microbiology Microbiology Results: Microbiology 05/20/23 18:32 Urine clean catch Urine Culture - Preliminary Culture in progress. 05/21/23 10:00 Ascites Fluid Gram Stain - Final 05/21/23 10:00 Ascites Fluid Anaerobic Culture - Preliminary No growth to date. 05/21/23 10:00 Ascites Fluid Body Fluid Culture - Preliminary No growth to date. Procedures Date of Service Date of Service: 05/22/23 Assessment & Plan Assessment and plan (1) PENNY (acute kidney injury): Status: Acute Plan 67 yr old man with PENNY superimposed on CKD 3 Most likely had tubular injury. No obstruction based on CT scan No recent suspect any GN and or AIN Serum creatinine currently stable. No indication for renal replacement. Continue with current supportive care Lab AM. Shall closely follow-up. Time Spent With Patient Time: . Progress Note: Quality Stroke Does the patient have a stroke diagnosis?: No
--- NOTE | 2023-05-22 14:09 | HO.PM.IMPN ---
Subjective Subjective Date of Service: 05/22/23 Interval History: no N/V abd less distended c/o dysphagia + globus sensation LUE swollen from IV, removed Review of Systems Review of Systems: Yes all other systems are reviewed and are negative Physical Exam Vital Signs: Vital Signs: Last Vital Signs Temp 97.1 F 05/22/23 07:13 Pulse 56 05/22/23 07:13 Resp 12 05/22/23 07:13 BP 99/53 L 05/22/23 07:13 Pulse Ox 97 05/22/23 07:13 O2 Del Method Room Air 05/22/23 07:13 BMI result Body Mass Index 27.9 Gen: in no acute distress HEENT: sclera anicteric, moist mucus membranes Neck: supple Lungs: clear to auscultation bilaterally Heart: regular rate and rhythm, no murmurs Abd: soft, non-tender, ascites present Ext: LUE swollen Skin: warm/well-perfused Neuro: alert and oriented x3, no focal findings Psych: appropriate affect Objective Data Active Medications Acetaminophen (Acetaminophen 325 Mg Tablet) 650 mg PO Q6H PRN PRN Reason: Pain, Mild (Pain Scale 1-3) Last Admin: 05/20/23 18:09 Dose: 650 mg Documented By: HOWARD Bisacodyl (Bisacodyl 10 Mg Supp.Rect) 10 mg [place] DAILY PRN PRN Reason: Constipation Dextrose (Dextrose 50 % 25 Gm/50 Ml Syringe) 25 gm IVPUSH Q15M PRN; Protocol PRN Reason: per Hypoglycemia Standing Ord. Enoxaparin Sodium (Enoxaparin Sodium 40 Mg/0.4 Ml Syringe) 40 mg SUBCUT Q24H [facility] Last Admin: 05/21/23 17:12 Dose: 40 mg Documented By: YUE Folic Acid (Folic Acid 1 Mg Tablet) 1 mg PO DAILY [facility] Last Admin: 05/22/23 08:39 Dose: 1 mg Documented By: YUE Gabapentin (Gabapentin 100 Mg Capsule) 100 mg PO TID [facility] Last Admin: 05/22/23 08:39 Dose: 100 mg Documented By: YUE Glucose (Glucose Gel 15 Gm Gel..Gram.) 15 gm PO Q15M PRN; Protocol PRN Reason: per Hypoglycemia Standing Ord. Lactated Ringer's (Lr) 1,000 mls @ 100 mls/hr IVCONT .Q10H [facility] Last Infusion: 05/22/23 10:34 Dose: 100 mls/hr Documented By: YUE Insulin Human Lispro (Insulin Lispro 100 Unit/Ml 3 Ml Vial) 0 unit SUBCUT QIDACHS [facility]; Protocol Last Admin: 05/22/23 11:26 Dose: Not Given Documented By: YUE Non-Admin Reason: No Insulin Coverage Lactulose (Lactulose 20 Gm/30 Ml Solution) 30 gm PO TID [facility] Last Admin: 05/22/23 08:40 Dose: Not Given Documented By: YUE Non-Admin Reason: Patient Refused Lidocaine (Lidocaine 4 % Patch Adh..Patch) 1 patch TRANSDERMA DAILY [facility]; Protocol Last Admin: 05/22/23 08:40 Dose: 1 patch Documented By: YUE Magnesium Hydroxide (Milk Of Magnesia 30 Ml Oral.Susp) 400 ml PO DAILY PRN PRN Reason: Constipation Melatonin (Melatonin 3 Mg Tablet) 3 mg PO BEDTIME [facility] Last Admin: 05/21/23 20:40 Dose: 3 mg Documented By: DARELL Midodrine (Midodrine Hcl 10 Mg Tablet) 10 mg PO TID@0600,1200,1800 [facility] Last Admin: 05/22/23 12:00 Dose: 10 mg Documented By: YUE Multivitamins/Vitamin C (Multivitamin Tablet) 1 tab PO DAILY [facility] Last Admin: 05/22/23 08:39 Dose: 1 tab Documented By: YUE Naltrexone HCl (Naltrexone Hcl 50 Mg Tablet) 50 mg PO DAILY [facility] Last Admin: 05/22/23 08:39 Dose: 50 mg Documented By: YUE Ondansetron HCl (Ondansetron Hcl 4 Mg/2 Ml Vial) 4 mg IVPUSH Q8H PRN PRN Reason: Nausea and Vomiting Last Admin: 05/20/23 18:09 Dose: 4 mg Documented By: OHWARD Rifaximin (Rifaximin 550 Mg Tablet) 550 mg PO BID [facility] Last Admin: 05/22/23 08:39 Dose: 550 mg Documented By: YUE Sertraline HCl (Sertraline Hcl 50 Mg Tablet) 50 mg PO DAILY [facility] Last Admin: 05/22/23 08:39 Dose: 50 mg Documented By: YUE Sodium Bicarbonate (Sodium Bicarbonate 650 Mg Tablet) 650 mg PO TID [facility] Last Admin: 05/22/23 08:39 Dose: 650 mg Documented By: YUE Sodium Biphosphate/Sodium Phosphate (Sodium Phosphate,[place]-Dibasic 133 Ml Enema) 118 ml MS DAILY PRN PRN Reason: Constipation Sodium Chloride (0.9 % Sodium Chloride Flush 3 Ml Syringe) 3 ml IVFLUSH QSHIFT [facility] Last Admin: 05/22/23 10:34 Dose: Not Given Documented By: YUE Non-Admin Reason: IV Running Thiamine HCl (Thiamine Hcl 100 Mg Tablet) 100 mg PO DAILY [facility] Last Admin: 05/22/23 08:39 Dose: 100 mg Documented By: YUE Labs 05/20/23 12:30 05/22/23 06:21 Labs: Laboratory Results - last 24 hr 05/21/23 05/21/23 05/21/23 16:15 20:21 20:54 Hold Purple Top Anion Gap Estim Creat Clear Calc Estimated GFR POC Glucose 113 146 H Random Glucose Calcium Urine Eosinophils % 2.0 U Random Total Protein 122 H Ur Random Sodium Cancelled Urine Creatinine 05/21/23 05/21/23 05/22/23 20:54 20:54 06:21 Hold Purple Top SEE NOTE Anion Gap 14 Estim Creat Clear Calc 42.3 Estimated GFR 39 POC Glucose Random Glucose 103 Calcium 8.4 Urine Eosinophils % U Random Total Protein Ur Random Sodium 41.0 Urine Creatinine Cancelled 225.06 05/22/23 05/22/23 07:07 10:57 Hold Purple Top Anion Gap Estim Creat Clear Calc Estimated GFR POC Glucose 100 115 Random Glucose Calcium Urine Eosinophils % U Random Total Protein Ur Random Sodium Urine Creatinine Microbiology Microbiology Results: Microbiology 05/20/23 18:32 Urine Culture - Preliminary Urine clean catch Culture in progress. 05/21/23 10:00 Gram Stain - Final Ascites Fluid Anaerobic Culture - Preliminary No growth to date. Body Fluid Culture - Preliminary No growth to date. Assessment and Plan (1) PENNY (acute kidney injury): Status: Acute (2) Ascites: Status: Acute Plan d3 67yo M undergoing STR at [facility], PMx of EtOH cirrhosis, chronic indwelling urinary cathter, orthostatic hypotension, DM2, GERD sent in with decreased PO, N/V recently treated for Proteus mirabilis bacteremia admitted for PENNY PENNY - likely tubular injury, Cr stable, Nephrology following cirrhosis with ascites - 5L ascites removed therapeutically 05/21/23 superficial thrombophlebitis - IV removed, cool compresses hepatic encephalopathy - rifaximin + lactulose N/V - resolved GERD - PPI chronic orthostatic hypotension - continue mididrone DM2 with hypoglycemia - Lantus held, continue alma-dose lispro mood disorder - continue sertraline AUD - continue thiamine, naltrexone VTE ppx - LMWH dispo - eventual return to STR In my clinical judgment, the patient requires continued inpatient hospitalization for the following reasons: PENNY Total time managing care of this patient today: 40 minutes. Quality Stroke Does the patient have a stroke diagnosis?: No VTE Prior VTE?: No VTE Risk Level:: Medical - moderate - high VTE Device Contraindication: Treatment Not Indicated VTE Drug Contraindication: N/A - Med Ordered
--- NOTE | 2023-05-22 14:54 | MHC.SLORD ---
Speech Language Pathology Order Status: Per MD, GREETING CARD MAKER consultation ordered d/t pt reported dysphagia & globus sensation. GREETING CARD MAKER attempted to see patient for clinical swallow evaluation at bedside this afternoon. Patient declined participation in full evaluation, however was agreeable to patient interview. Patient reporting globus sensation in throat w/ water/food/pills for past 2-3 weeks. GREETING CARD MAKER to re-attempt swallow eval tomorrow.
[2023-05-22 16:00] VITALS: BP 115/56; PULSE 65; RESP 18; TEMP 36.4; O2SAT 99
[2023-05-22 16:53] LABS: Glucose, Whole Blood 121 mg/dL (60-115)
[2023-05-22] MEDS: Enoxaparin Sodium 40 MG/0.4 ML SYRINGE SUBCUT (18:01)
[2023-05-22 19:16] VITALS: BP 105/54; PULSE 58; RESP 16; TEMP 36.2; O2SAT 94
[2023-05-22 20:34] LABS: Glucose, Whole Blood 145 mg/dL (60-115)
[2023-05-22] MEDS: Melatonin 3 MG TABLET PO (20:49)
[2023-05-23] MEDS: Lactated Ringers 1,000 ML 100 ML IVCONT ×3 (00:31→20:11)
[2023-05-23 03:59] VITALS: BP 92/55; PULSE 61; RESP 16; TEMP 36.1; O2SAT 99
[2023-05-23] MEDS: Midodrine HCl 10 MG TABLET PO ×3 (06:00→18:09)
[2023-05-23 07:05] LABS: Glucose, Whole Blood 105 mg/dL (60-115)
[2023-05-23 07:18] VITALS: BP 137/51; PULSE 63; RESP 12; TEMP 36.5; O2SAT 99
[2023-05-23] MEDS: Gabapentin 100 MG CAPSULE PO ×3 (08:02→20:09)
[2023-05-23] MEDS: Lactulose 20 GM/30 ML SOLUTION 30 GM PO ×2 (08:02→15:42)
[2023-05-23] MEDS: Naltrexone HCl 50 MG TABLET PO (08:02)
[2023-05-23] MEDS: Sodium Bicarbonate 650 MG TABLET PO ×3 (08:02→20:09)
[2023-05-23] MEDS: rifAXIMin 550 MG TABLET PO ×2 (08:02→20:09)
[2023-05-23] MEDS: Sertraline HCL 50 MG TABLET PO (08:02)
[2023-05-23] MEDS: Folic Acid 1 MG TABLET PO (08:02)
[2023-05-23] MEDS: Multivitamin TABLET 1 TAB PO (08:03)
[2023-05-23] MEDS: 0.9 % Sodium Chloride Flush 3 ML SYRINGE IVFLUSH ×2 (08:03→15:42)
[2023-05-23] MEDS: Lidocaine 4 % Patch ADH..PATCH 1 PATCH TRANSDERMA (08:03)
[2023-05-23] MEDS: Thiamine HCL 100 MG TABLET PO (08:05)
[2023-05-23 10:30] VITALS: BP 137/51; PULSE 63; O2SAT 99
[2023-05-23 11:35] LABS: Glucose, Whole Blood 136 mg/dL (60-115)
--- NOTE | 2023-05-23 11:43 | P.PNNP_ITS ---
Subjective Subjective Date of Service: 05/24/23 Interval history: Events noted Eager to be discharged Physical Exam 2 Vital Signs: Vital Signs: Last Vital Signs Temp 97.7 F 05/23/23 07:18 Pulse 63 05/23/23 10:30 Resp 12 05/23/23 07:18 BP 137/51 L 05/23/23 10:30 Pulse Ox 99 05/23/23 10:30 O2 Del Method Room Air 05/23/23 07:18 BMI result Body Mass Index 27.9 Const: General: comfortable and no acute distress O rientation/consciousness: patient oriented x3 HEENT: Head: Yes normocephalic Mouth: Normal oral and palatal mucosa present Eyes: EOM: EOMs intact bilaterally Neck: Neck: Yes supple Resp: Auscultation: diminished lung sounds Cardio: Jugular venous distension: no JVD Rate: regular rate GI: Palpation (GI): Soft to palpation Auscultation: normal bowel sounds : General: Yes no CVA tenderness Back/Spine/Pelvis: Back: no CVA tenderness Skin: General skin exam: no rashes or lesions noted Neuro: General: patient oriented x3 and moves all extremities Extrem: General: Yes no pedal edema Objective Data Labs 05/20/23 12:30 05/24/23 10:22 Labs: Laboratory Results - last 24 hr 05/22/23 05/22/23 05/23/23 16:49 20:29 06:57 POC Glucose 121 H 145 H 105 05/23/23 11:22 POC Glucose 136 H Microbiology Microbiology Results: Microbiology 05/21/23 10:00 Ascites Fluid Gram Stain - Final 05/21/23 10:00 Ascites Fluid Anaerobic Culture - Preliminary No growth to date. 05/21/23 10:00 Ascites Fluid Body Fluid Culture - Final No growth after 2 days 05/20/23 18:32 Urine clean catch Urine Culture - Preliminary Culture in progress. Procedures Date of Service Date of Service: 05/24/23 Assessment & Plan Assessment and plan (1) PENNY (acute kidney injury): Status: Acute Plan 67 yr old man with PENNY superimposed on CKD 3 Most likely had tubular injury. No obstruction based on CT scan No recent suspect any GN and or AIN Serum creatinine currently stable. No indication for renal replacement. Continue with current supportive care Can discontinue IV fluids and be discharged she will follow-up as outpatient . Time Spent With Patient Time: Total time managing care of this patient today ____ minutes. Progress Note: Quality Stroke Does the patient have a stroke diagnosis?: No
--- NOTE | 2023-05-23 11:50 | HO.PM.IMPN ---
Subjective Subjective Date of Service: 05/23/23 Interval History: Globus sensation after swallowing persists; otherwise feels well Review of Systems Review of Systems: Yes all other systems are reviewed and are negative Physical Exam Vital Signs: Vital Signs: Last Vital Signs Temp 97.7 F 05/23/23 07:18 Pulse 63 05/23/23 10:30 Resp 12 05/23/23 07:18 BP 137/51 L 05/23/23 10:30 Pulse Ox 99 05/23/23 10:30 O2 Del Method Room Air 05/23/23 07:18 BMI result Body Mass Index 27.9 Gen: in no acute distress HEENT: sclera anicteric, moist mucus membranes Neck: supple Lungs: clear to auscultation bilaterally Heart: regular rate and rhythm, no murmurs Abd: soft, non-tender, ascites present Ext: LUE swollen Skin: warm/well-perfused Neuro: alert and oriented x3, no focal findings Psych: appropriate affect Objective Data Active Medications Acetaminophen (Acetaminophen 325 Mg Tablet) 650 mg PO Q6H PRN PRN Reason: Pain, Mild (Pain Scale 1-3) Last Admin: 05/20/23 18:09 Dose: 650 mg Documented By: HOWARD Bisacodyl (Bisacodyl 10 Mg Supp.Rect) 10 mg [place] DAILY PRN PRN Reason: Constipation Dextrose (Dextrose 50 % 25 Gm/50 Ml Syringe) 25 gm IVPUSH Q15M PRN; Protocol PRN Reason: per Hypoglycemia Standing Ord. Enoxaparin Sodium (Enoxaparin Sodium 40 Mg/0.4 Ml Syringe) 40 mg SUBCUT Q24H [facility] Last Admin: 05/22/23 18:01 Dose: 40 mg Documented By: YUE Folic Acid (Folic Acid 1 Mg Tablet) 1 mg PO DAILY [facility] Last Admin: 05/23/23 08:02 Dose: 1 mg Documented By: FRANCA Gabapentin (Gabapentin 100 Mg Capsule) 100 mg PO TID [facility] Last Admin: 05/23/23 08:02 Dose: 100 mg Documented By: FRANCA Glucose (Glucose Gel 15 Gm Gel..Gram.) 15 gm PO Q15M PRN; Protocol PRN Reason: per Hypoglycemia Standing Ord. Lactated Ringer's (Lr) 1,000 mls @ 100 mls/hr IVCONT .Q10H [facility] Last Admin: 05/23/23 10:54 Dose: 100 mls/hr Documented By: FRANCA Insulin Human Lispro (Insulin Lispro 100 Unit/Ml 3 Ml Vial) 0 unit SUBCUT QIDACHS [facility]; Protocol Last Admin: 05/23/23 07:39 Dose: Not Given Documented By: FRANCA Non-Admin Reason: No Insulin Coverage Lactulose (Lactulose 20 Gm/30 Ml Solution) 30 gm PO TID [facility] Last Admin: 05/23/23 08:02 Dose: 30 gm Documented By: FRANCA Lidocaine (Lidocaine 4 % Patch Adh..Patch) 1 patch TRANSDERMA DAILY [facility]; Protocol Last Admin: 05/23/23 08:03 Dose: 1 patch Documented By: FRANCA Magnesium Hydroxide (Milk Of Magnesia 30 Ml Oral.Susp) 400 ml PO DAILY PRN PRN Reason: Constipation Melatonin (Melatonin 3 Mg Tablet) 3 mg PO BEDTIME [facility] Last Admin: 05/22/23 20:49 Dose: 3 mg Documented By: DARELL Midodrine (Midodrine Hcl 10 Mg Tablet) 10 mg PO TID@0600,1200,1800 [facility] Last Admin: 05/23/23 06:00 Dose: 10 mg Documented By: DARELL Multivitamins/Vitamin C (Multivitamin Tablet) 1 tab PO DAILY [facility] Last Admin: 05/23/23 08:03 Dose: 1 tab Documented By: FRANCA Naltrexone HCl (Naltrexone Hcl 50 Mg Tablet) 50 mg PO DAILY [facility] Last Admin: 05/23/23 08:02 Dose: 50 mg Documented By: FRANCA Ondansetron HCl (Ondansetron Hcl 4 Mg/2 Ml Vial) 4 mg IVPUSH Q8H PRN PRN Reason: Nausea and Vomiting Last Admin: 05/20/23 18:09 Dose: 4 mg Documented By: HOWARD Rifaximin (Rifaximin 550 Mg Tablet) 550 mg PO BID [facility] Last Admin: 05/23/23 08:02 Dose: 550 mg Documented By: FRANCA Sertraline HCl (Sertraline Hcl 50 Mg Tablet) 50 mg PO DAILY [facility] Last Admin: 05/23/23 08:02 Dose: 50 mg Documented By: FRANCA Sodium Bicarbonate (Sodium Bicarbonate 650 Mg Tablet) 650 mg PO TID [facility] Last Admin: 05/23/23 08:02 Dose: 650 mg Documented By: FRANCA Sodium Biphosphate/Sodium Phosphate (Sodium Phosphate,[place]-Dibasic 133 Ml Enema) 118 ml [place] DAILY PRN PRN Reason: Constipation Sodium Chloride (0.9 % Sodium Chloride Flush 3 Ml Syringe) 3 ml IVFLUSH QSHIFT [facility] Last Admin: 05/23/23 08:03 Dose: 3 ml Documented By: FRANCA Thiamine HCl (Thiamine Hcl 100 Mg Tablet) 100 mg PO DAILY [facility] Last Admin: 05/23/23 08:05 Dose: 100 mg Documented By: FRANCA Labs 05/20/23 12:30 05/22/23 06:21 Labs: Laboratory Results - last 24 hr 05/22/23 05/22/23 05/23/23 16:49 20:29 06:57 POC Glucose 121 H 145 H 105 05/23/23 11:22 POC Glucose 136 H Microbiology Microbiology Results: Microbiology 05/21/23 10:00 Gram Stain - Final Ascites Fluid Anaerobic Culture - Preliminary No growth to date. Body Fluid Culture - Final No growth after 2 days 05/20/23 18:32 Urine Culture - Preliminary Urine clean catch Culture in progress. Assessment and Plan (1) PENNY (acute kidney injury): Status: Acute (2) Ascites: Status: Acute Plan d4 67[facility], chronic indwelling urinary cathter, orthostatic hypotension, DM2, GERD sent in with decreased PO, N/V recently treated for Proteus mirabilis bacteremia admitted for PENNY globus sensation - barium swallow PENNY - likely tubular injury, Cr stable, Nephrology following, may have plateuaed, follow up with [facility] as outpatient cirrhosis with ascites - 5L ascites removed therapeutically 05/21/23 superficial thrombophlebitis - IV removed, cool compresses hepatic encephalopathy - rifaximin + lactulose N/V - resolved GERD - PPI chronic orthostatic hypotension - continue mididrone DM2 with hypoglycemia - Lantus held, continue alma-dose lispro mood disorder - continue sertraline AUD - continue thiamine, naltrexone VTE ppx - LMWH dispo - eventual return to STR In my clinical judgment, the patient requires continued inpatient hospitalization for the following reasons: PENNY, barium swallow Total time managing care of this patient today: 35 minutes. Quality Stroke Does the patient have a stroke diagnosis?: No VTE Prior VTE?: No VTE Risk Level:: Medical - moderate - high VTE Device Contraindication: Treatment Not Indicated VTE Drug Contraindication: N/A - Med Ordered
--- NOTE | 2023-05-23 15:13 | MHC.CM.PN ---
Per MD no discharge today. Patient continues with PENNY. A Modified Barium swallow is ordered. DP return to [facility] for STR via BLS.
[2023-05-23 15:14] VITALS: BP 126/55; PULSE 72; RESP 16; TEMP 36.4; O2SAT 95
[2023-05-23 16:16] LABS: Glucose, Whole Blood 105 mg/dL (60-115)
--- NOTE | 2023-05-23 17:28 | MHC.SL.SWA ---
Speech Pathologist Impression: Risk of Aspiration Due to: Poor PO Intake Dysphasia Diet Status: Liquid Consistency and Strategies for Safe Swallow: Liquid Intake Recommendation: Thin Liquid Intake Strategies: Unrestricted Solid Food Consistency: Dietary Recommendations: Regular Additional Modifications to Solid Foods: Patient is encouraged to elect softer, easier to chew foods from Regular menu. Patient is encouraged to use strategies he identified: Chew food thoroughly, swallow twice if needed, and alternate bites of food with sips of liquid. Patient should also remain in upright position for at least thirty minutes after eating. Oral Medication Intake: Crushed with Puree Please contact the pharmacy regarding appropriate crushable or liquid drug formulations that are available whenever modified delivery is recommended. Compensatory Strategies and Precautions to be Taken for Safe Swallow: Sitting Upright (90 deg) Liquids from Cup Liquids from Straw Alternate Liquids/Solids Supervision While Eating and Drinking for Safe Swallow: None Needed Foods to Avoid: Difficult to chew solids. Swallowing Recommended Treatments: Compens. Strategy Educat. Recommendation for Speech: Inpatient Speech Therapy Comment: Patient presents with all aspects of oral/pharyngeal swallow WFL, but with clear c/o - description of difficulty at the esophageal phase of swallow (food feeling stuck /globus sensation, needing to sip liquid or swallow several times to help it go down. ). Recommend patient continue on regular diet with thin liquids, pills crushed in puree. Recommend patient elect softer, easier to chew food from regular menu. Recommend patient be referred as inpatient/outpatient for GI barium swallow study to further evaluate esophageal function. ROGELIO LE notified of recommendations by secure text, RN in person. MARKETING COMMUNICATIONS ASSOCIATE will f/u x1 to assure that patient is tolerating diet. Frequency/Duration: Date Range for Service Req: Timeline to reassess: Protective Clothing Issuer Clinican/Clinical Fellow: Yes Supervisory Statement: I have reviewed and agree with the student/clinical fellow's documentation: N/A Speech Language Pathologist: Tatiana Pierre M.A., CCC-MARKETING COMMUNICATIONS ASSOCIATE
[2023-05-23] MEDS: Enoxaparin Sodium 40 MG/0.4 ML SYRINGE SUBCUT (18:09)
[2023-05-23 19:52] VITALS: BP 111/53; PULSE 78; RESP 18; TEMP 36.6; O2SAT 94
[2023-05-23 20:08] LABS: Glucose, Whole Blood 114 mg/dL (60-115)
[2023-05-23] MEDS: Melatonin 3 MG TABLET PO (20:09)
[2023-05-24 04:00] VITALS: BP 120/55; PULSE 70; RESP 16; TEMP 36.3; O2SAT 100
[2023-05-24] MEDS: Midodrine HCl 10 MG TABLET PO ×3 (05:55→17:00)
[2023-05-24 05:56] VITALS: BP 99/58; PULSE 67
[2023-05-24 07:13] LABS: Glucose, Whole Blood 135 mg/dL (60-115)
[2023-05-24 07:26] VITALS: BP 104/58; PULSE 68; RESP 16; TEMP 36.1; O2SAT 98
[2023-05-24] MEDS: 0.9 % Sodium Chloride Flush 3 ML SYRINGE IVFLUSH ×3 (08:45→21:05)
[2023-05-24] MEDS: Lidocaine 4 % Patch ADH..PATCH 1 PATCH TRANSDERMA (08:45)
[2023-05-24] MEDS: rifAXIMin 550 MG TABLET PO ×2 (08:46→20:52)
[2023-05-24] MEDS: Naltrexone HCl 50 MG TABLET PO (08:46)
[2023-05-24] MEDS: Lactulose 20 GM/30 ML SOLUTION 30 GM PO ×2 (08:47→14:35)
[2023-05-24] MEDS: Multivitamin TABLET 1 TAB PO (08:47)
[2023-05-24] MEDS: Folic Acid 1 MG TABLET PO (08:47)
[2023-05-24] MEDS: Gabapentin 100 MG CAPSULE PO ×3 (08:47→20:48)
[2023-05-24] MEDS: Sertraline HCL 50 MG TABLET PO (08:47)
[2023-05-24] MEDS: Thiamine HCL 100 MG TABLET PO (08:47)
[2023-05-24] MEDS: Sodium Bicarbonate 650 MG TABLET PO ×3 (08:47→20:48)
--- NOTE | 2023-05-24 09:52 | P.PNIM_ITS ---
Subjective Subjective Date of Service: 05/24/23 Interval History: aspirated during barium swallow otherwise feels well Review of Systems Review of Systems: Yes all other systems are reviewed and are negative Physical Exam 2 Vital Signs: Vital Signs: Last Vital Signs Temp 97.0 F 05/24/23 07:26 Pulse 68 05/24/23 07:26 Resp 16 05/24/23 07:26 BP 104/58 L 05/24/23 07:26 Pulse Ox 98 05/24/23 07:26 O2 Del Method Room Air 05/24/23 07:26 BMI result Body Mass Index 27.9 Gen: in no acute distress HEENT: sclera anicteric, moist mucus membranes Neck: supple Lungs: clear to auscultation bilaterally Heart: regular rate and rhythm, no murmurs Abd: soft, non-tender, ascites present Ext: LUE swollen Skin: warm/well-perfused Neuro: alert and oriented x3, no focal findings Psych: appropriate affect Objective Data Active Medications Acetaminophen (Acetaminophen 325 Mg Tablet) 650 mg PO Q6H PRN PRN Reason: Pain, Mild (Pain Scale 1-3) Last Admin: 05/20/23 18:09 Dose: 650 mg Documented By: HOWARD Bisacodyl (Bisacodyl 10 Mg Supp.Rect) 10 mg [place] DAILY PRN PRN Reason: Constipation Dextrose (Dextrose 50 % 25 Gm/50 Ml Syringe) 25 gm IVPUSH Q15M PRN; Protocol PRN Reason: per Hypoglycemia Standing Ord. Enoxaparin Sodium (Enoxaparin Sodium 40 Mg/0.4 Ml Syringe) 40 mg SUBCUT Q24H [facility] Last Admin: 05/23/23 18:09 Dose: 40 mg Documented By: FRANCA Folic Acid (Folic Acid 1 Mg Tablet) 1 mg PO DAILY [facility] Last Admin: 05/24/23 08:47 Dose: 1 mg Documented By: BAKARI Gabapentin (Gabapentin 100 Mg Capsule) 100 mg PO TID [facility] Last Admin: 05/24/23 08:47 Dose: 100 mg Documented By: BAKARI Glucose (Glucose Gel 15 Gm Gel..Gram.) 15 gm PO Q15M PRN; Protocol PRN Reason: per Hypoglycemia Standing Ord. Insulin Human Lispro (Insulin Lispro 100 Unit/Ml 3 Ml Vial) 0 unit SUBCUT QIDACHS [facility]; Protocol Last Admin: 05/24/23 07:16 Dose: Not Given Documented By: BAKARI Non-Admin Reason: No Insulin Coverage Lactulose (Lactulose 20 Gm/30 Ml Solution) 30 gm PO TID [facility] Last Admin: 05/24/23 08:47 Dose: 30 gm Documented By: BAKARI Lidocaine (Lidocaine 4 % Patch Adh..Patch) 1 patch TRANSDERMA DAILY [facility]; Protocol Last Admin: 05/24/23 08:45 Dose: 1 patch Documented By: BAKARI Magnesium Hydroxide (Milk Of Magnesia 30 Ml Oral.Susp) 400 ml PO DAILY PRN PRN Reason: Constipation Melatonin (Melatonin 3 Mg Tablet) 3 mg PO BEDTIME [facility] Last Admin: 05/23/23 20:09 Dose: 3 mg Documented By: NAT Midodrine (Midodrine Hcl 10 Mg Tablet) 10 mg PO TID@0600,1200,1800 [facility] Last Admin: 05/24/23 05:55 Dose: 10 mg Documented By: NAT Multivitamins/Vitamin C (Multivitamin Tablet) 1 tab PO DAILY [facility] Last Admin: 05/24/23 08:47 Dose: 1 tab Documented By: BAKARI Naltrexone HCl (Naltrexone Hcl 50 Mg Tablet) 50 mg PO DAILY [facility] Last Admin: 05/24/23 08:46 Dose: 50 mg Documented By: BAKARI Ondansetron HCl (Ondansetron Hcl 4 Mg/2 Ml Vial) 4 mg IVPUSH Q8H PRN PRN Reason: Nausea and Vomiting Last Admin: 05/20/23 18:09 Dose: 4 mg Documented By: HOWARD Rifaximin (Rifaximin 550 Mg Tablet) 550 mg PO BID [facility] Last Admin: 05/24/23 08:46 Dose: 550 mg Documented By: BAKARI Sertraline HCl (Sertraline Hcl 50 Mg Tablet) 50 mg PO DAILY [facility] Last Admin: 05/24/23 08:47 Dose: 50 mg Documented By: BAKARI Sodium Bicarbonate (Sodium Bicarbonate 650 Mg Tablet) 650 mg PO TID [facility] Last Admin: 05/24/23 08:47 Dose: 650 mg Documented By: BAKARI Sodium Biphosphate/Sodium Phosphate (Sodium Phosphate,[place]-Dibasic 133 Ml Enema) 118 ml [place] DAILY PRN PRN Reason: Constipation Sodium Chloride (0.9 % Sodium Chloride Flush 3 Ml Syringe) 3 ml IVFLUSH QSHIFT [facility] Last Admin: 05/24/23 08:45 Dose: 3 ml Documented By: BAKARI Thiamine HCl (Thiamine Hcl 100 Mg Tablet) 100 mg PO DAILY [facility] Last Admin: 05/24/23 08:47 Dose: 100 mg Documented By: BAKARI Labs 05/20/23 12:30 05/22/23 06:21 Labs: Laboratory Results - last 24 hr 05/23/23 05/23/23 05/23/23 11:22 16:13 20:05 POC Glucose 136 H 105 114 05/24/23 07:05 POC Glucose 135 H Microbiology Microbiology Results: Microbiology 05/20/23 18:32 Urine Culture - Preliminary Urine clean catch Yeast 05/21/23 10:00 Gram Stain - Final Ascites Fluid Anaerobic Culture - Preliminary No growth to date. Body Fluid Culture - Final No growth after 2 days Assessment and Plan (1) PENNY (acute kidney injury): Status: Acute (2) Ascites: Status: Acute Plan d5 67[facility], chronic indwelling urinary cathter, orthostatic hypotension, DM2, GERD sent in with decreased PO, N/V recently treated for Proteus mirabilis bacteremia admitted for PENNY globus sensation aspiration - will perform modified/video barium swallow and also consult GI PENNY - likely tubular injury, Cr stable, Nephrology following, may have plateuaed, repeat BMP pending cirrhosis with ascites - 5L ascites removed therapeutically 05/21/23 superficial thrombophlebitis - IV removed, cool compresses hepatic encephalopathy - rifaximin + lactulose N/V - resolved GERD - PPI chronic orthostatic hypotension - continue midodrine DM2 with hypoglycemia - Lantus held, continue alma-dose lispro mood disorder - continue sertraline AUD - continue thiamine, naltrexone VTE ppx - LMWH dispo - eventual return to STR In my clinical judgment, the patient requires continued inpatient hospitalization for the following reasons: PENNY, aspiration Total time managing care of this patient today: 35 minutes. Quality Stroke Does the patient have a stroke diagnosis?: No VTE Prior VTE?: No VTE Risk Level:: Medical - moderate - high VTE Device Contraindication: Treatment Not Indicated VTE Drug Contraindication: N/A - Med Ordered
[2023-05-24 09:56] VITALS: BP 104/58; PULSE 68; O2SAT 98
[2023-05-24 10:59] LABS: Anion Gap 12 (12-20); Blood Urea Nitrogen 19 mg/dL (9-16); Calcium 8.5 mg/dL (8.4-10.2); Carbon Dioxide 25 mmol/L (22-29); Chloride 111 mmol/L (96-108); Creatinine Clr Calc Pharmacy 36.6; Estimated Glomerular Filt Rate 33; Glucose Random 183 mg/dL (60-115); Magnesium 1.7 mg/dL (1.6-2.6); Potassium 3.8 mmol/L (3.3-5.1); Sodium 144 mmol/L (135-145)
[2023-05-24 11:36] LABS: Glucose, Whole Blood 150 mg/dL (60-115)
[2023-05-24] MEDS: Albumin Human 25 % 100 ML IV ×3 (11:37→22:53)
--- NOTE | 2023-05-24 12:27 | MHC.SL.SWA ---
Speech Pathologist Impression: Risk of Aspiration Due to: Poor PO Intake Dysphasia Diet Status: Recommend Patient continue on Regular diet with Thin liquids, pills crushed in puree. Recommend MBSS study, which unfortunately cannot be scheduled today with radiology, but will be done as soon as possible, likely 06/27/23. MD aware of recommendations by inperson discussion and secure text. Liquid Consistency and Strategies for Safe Swallow: Liquid Intake Recommendation: Thin Liquid Intake Strategies: Double Swallow Solid Food Consistency: Dietary Recommendations: Regular Additional Modifications to Solid Foods: Patient is encouraged to elect softer, easier to chew foods from Regular menu. Patient is encouraged to use strategies he identified: Chew food thoroughly, swallow twice if needed, and alternate bites of food with sips of liquid. Patient should also remain in upright position for at least thirty minutes after eating. Oral Medication Intake: Crushed with Puree Please contact the pharmacy regarding appropriate crushable or liquid drug formulations that are available whenever modified delivery is recommended. Compensatory Strategies and Precautions to be Taken for Safe Swallow: Sitting Upright (90 deg) Double Swallow Small Bites and Sips Alternate Liquids/Solids Rate of Ingestion Change Supervision While Eating and Drinking for Safe Swallow: None Needed Foods to Avoid: Difficult to chew solids. Swallowing Recommended Treatments: Compens. Strategy Educat. Recommendation for Speech: Inpatient Speech Therapy Comment: Patient seen on two occasions this morning, when both breakfast and lunch trays were present and he was eating. Patient had many questions about the MBS procedure done yesterday which CREDIT RELATIONSHIP MANAGER did not have access to at the time, however Dr. Gauthier came on rounds and explained there had been an aspiration event and the study was discontinued. Per mathematics technician who was contacted, Patient was reclined and on his side when drinking barium and aspirated (full report not available in expanse at this time). At bedside, while consuming regular solids at lunch and breakfast, patient continues to present with swallow mostly WFL, although careful and prolonged chewing is noted, and patient is noted to used specific strategies to aid with food going down (esophogeal phase). These strategies are: Chewing food thoroughly, swallowing twice (dry swallow), taking sips of liquid after each swallow. Patient is mostly electing softer foods, although he was advised that raw vegetables in a salad and a bagel where likely more challenging textures for swallowing. Recommend Patient continue on Regular diet with Thin liquids, pills crushed in puree. Recommend MBSS study, which unfortunately cannot be scheduled today with radiology, but will be done as soon as possible, likely 06/27/23. MD aware of recommendations by inperson discussion and secure text. Frequency/Duration: Date Range for Service Req: Timeline to reassess: Hand Alterations Seamstress Clinican/Clinical Fellow: Yes Supervisory Statement: I have reviewed and agree with the student/clinical fellow's documentation: N/A Speech Language Pathologist: Tatiana Pierre M.A., CCC-CREDIT RELATIONSHIP MANAGER
[2023-05-24 15:26] VITALS: BP 109/54; PULSE 59; RESP 18; TEMP 36.1; O2SAT 96
--- NOTE | 2023-05-24 16:09 | MHC.CM.PN ---
MARLIN MET WITH PT TODAY WHO WAS UNSURE WHO IS HCP WAS MARLIN REQUESTED A COPY FROM [facility] AND CONFIRMED HIS PARTNER MAAME IS HIS PRIMARY HCP CM INFORMED HIM HE HAS ONE BUT CAN CHANGE IT IF HE CHOOSES HE REPORTS HE WILL SPEAK TO HIS SISTER GROVER ABOUT BEING HIS AGENT PT REPORTS HIS AND CHILDREN APPEAR TO BE RUNNING THEIR OWN AGENDA AND WHEN HE DOES NOT COMPLY THEY THREATEN TO WITHHOLD HIS GRANDCHILDREN. CURRENT DC PLAN IS STR AT [facility] VIA S
[2023-05-24 16:17] LABS: Glucose, Whole Blood 124 mg/dL (60-115)
--- NOTE | 2023-05-24 16:31 | P.PNNP_ITS ---
Subjective Subjective Date of Service: 05/24/23 Interval history: Events noted Cr bumped up Physical Exam 2 Vital Signs: Vital Signs: Last Vital Signs Temp 97.0 F 05/24/23 15:26 Pulse 59 05/24/23 15:26 Resp 18 05/24/23 15:26 BP 109/54 L 05/24/23 15:26 Pulse Ox 96 05/24/23 15:26 O2 Del Method Room Air 05/24/23 15:26 BMI result Body Mass Index 27.9 Const: General: comfortable and no acute distress O rientation/consciousness: patient oriented x3 HEENT: Head: Yes normocephalic Mouth: Normal oral and palatal mucosa present Eyes: EOM: EOMs intact bilaterally Neck: Neck: Yes supple Resp: Auscultation: diminished lung sounds Cardio: Jugular venous distension: no JVD Rate: regular rate GI: Palpation (GI): Soft to palpation Auscultation: normal bowel sounds : General: Yes no CVA tenderness Back/Spine/Pelvis: Back: no CVA tenderness Skin: General skin exam: no rashes or lesions noted Neuro: General: patient oriented x3 and moves all extremities Extrem: General: Yes no pedal edema Objective Data Labs 05/20/23 12:30 05/24/23 10:22 Labs: Laboratory Results - last 24 hr 05/23/23 05/24/23 05/24/23 20:05 07:05 10:22 Hold Purple Top SEE NOTE Sodium 144 Potassium 3.8 Chloride 111 H Carbon Dioxide 25 Anion Gap 12 BUN 19 H Creatinine 2.00 H Estim Creat Clear Calc 36.6 Estimated GFR 33 POC Glucose 114 135 H Random Glucose 183 H Calcium 8.5 Magnesium 1.7 05/24/23 05/24/23 11:27 16:09 Hold Purple Top Sodium Potassium Chloride Carbon Dioxide Anion Gap BUN Creatinine Estim Creat Clear Calc Estimated GFR POC Glucose 150 H 124 H Random Glucose Calcium Magnesium Microbiology Microbiology Results: Microbiology 05/21/23 10:00 Ascites Fluid Gram Stain - Final 05/21/23 10:00 Ascites Fluid Anaerobic Culture - Preliminary No growth to date. 05/21/23 10:00 Ascites Fluid Body Fluid Culture - Final No growth after 2 days 05/20/23 18:32 Urine clean catch Urine Culture - Preliminary Yeast Procedures Date of Service Date of Service: 05/24/23 Assessment & Plan Assessment and plan (1) PENNY (acute kidney injury): Status: Acute Plan 67 yr old man with PENNY superimposed on CKD 3 Most likely had tubular injury. No obstruction based on CT scan No recent suspect any GN and or AIN Serum creatinine currently has bumped up Due to altered hemodynamics/hypoperfusion from low BP Keep SBP > 100 Avoid hypotension Agree with IV albumin No indication for renal replacement. Continue with current supportive care . Time Spent With Patient Time: Total time managing care of this patient today ____ minutes. Progress Note: Quality Stroke Does the patient have a stroke diagnosis?: No
[2023-05-24] MEDS: Enoxaparin Sodium 40 MG/0.4 ML SYRINGE SUBCUT (17:00)
[2023-05-24 19:27] VITALS: BP 115/58; PULSE 65; RESP 16; TEMP 36.6; O2SAT 97
[2023-05-24 20:07] LABS: Glucose, Whole Blood 118 mg/dL (60-115)
[2023-05-24] MEDS: Melatonin 3 MG TABLET PO (20:48)
[2023-05-25 04:00] VITALS: BP 106/54; PULSE 62; RESP 16; TEMP 36.1; O2SAT 96
[2023-05-25] MEDS: Midodrine HCl 10 MG TABLET PO ×3 (05:34→17:43)
[2023-05-25] MEDS: Albumin Human 25 % 100 ML IV ×4 (05:36→21:47)
[2023-05-25 06:32] LABS: Anion Gap 13 (12-20); Blood Urea Nitrogen 19 mg/dL (9-16); Calcium 8.9 mg/dL (8.4-10.2); Carbon Dioxide 19 mmol/L (22-29); Chloride 116 mmol/L (96-108); Estimated Glomerular Filt Rate 37; Glucose Random 118 mg/dL (60-115); Potassium 4.1 mmol/L (3.3-5.1); Sodium 144 mmol/L (135-145)
[2023-05-25 07:24] VITALS: BP 127/60; PULSE 54; RESP 17; TEMP 36.1; O2SAT 97
[2023-05-25 07:45] LABS: Glucose, Whole Blood 110 mg/dL (60-115)
[2023-05-25] MEDS: 0.9 % Sodium Chloride Flush 3 ML SYRINGE IVFLUSH ×3 (08:26→21:46)
--- NOTE | 2023-05-25 08:44 | P.PNGI_ITS ---
Subjective Subjective Date of Service: 05/25/23 Interval History: GI recalled for aspiration noted on barium swallow - which in turn was done for sensation of food getting stuck. Pt reports having intermittent trouble with swallowing gordon solids or thick liquids. Reports has been going on for a few months but is generally able to modulate by himself. Has never had endoscopy for this per his report. Critical Care Time (minutes): 0 Physical Exam 2 Vital Signs: Vital Signs: Last Vital Signs Temp 97.0 F 05/25/23 07:24 Pulse 54 05/25/23 07:24 Resp 17 05/25/23 07:24 BP 127/60 05/25/23 07:24 Pulse Ox 97 05/25/23 07:24 O2 Del Method Room Air 05/25/23 07:24 BMI result Body Mass Index 27.9 NAD Sitting up in hospital bed Able to answer most questions appropriately Objective Data Labs 05/20/23 12:30 05/25/23 05:59 Labs: Laboratory Results - last 24 hr 05/24/23 05/24/23 05/24/23 10:22 11:27 16:09 Hold Purple Top SEE NOTE Sodium 144 Potassium 3.8 Chloride 111 H Carbon Dioxide 25 Anion Gap 12 BUN 19 H Creatinine 2.00 H Estim Creat Clear Calc 36.6 Estimated GFR 33 POC Glucose 150 H 124 H Random Glucose 183 H Calcium 8.5 Magnesium 1.7 05/24/23 05/25/23 05/25/23 20:04 05:59 07:36 Hold Purple Top Sodium 144 Potassium 4.1 Chloride 116 H Carbon Dioxide 19 L Anion Gap 13 BUN 19 H Creatinine 1.83 H Estim Creat Clear Calc 40.0 Estimated GFR 37 POC Glucose 118 H 110 Random Glucose 118 H Calcium 8.9 Magnesium Microbiology Microbiology Results: Microbiology 05/21/23 10:00 Ascites Fluid Gram Stain - Final 05/21/23 10:00 Ascites Fluid Anaerobic Culture - Preliminary No growth to date. 05/21/23 10:00 Ascites Fluid Body Fluid Culture - Final No growth after 2 days 05/20/23 18:32 Urine clean catch Urine Culture - Preliminary Yeast Procedures Date of Service Date of Service: 05/25/23 Progress Note: A&P Assessment and plan (1) Dysphagia: Status: Acute (2) Esophageal stricture: Status: Acute (3) Chronic liver disease: Status: Acute (4) Encephalopathy: Status: Acute (5) Acute kidney injury: Status: Acute (6) Ascites: Status: Acute Plan # Dysphagia - Has MBS planned for saturday. Will also recommend an EGD depending on MBS results to investigate esophageal wall thickening vs stricture reported on barium esophagogram. # Encephalopathy improving - does not appear to be hepatic based on physical exam. # Ascites - Low SAAG ascites - i.e unlikely to be from liver disease - cyto x1 negative. No growth on AFB cultures. Recommend getting cell count, culture, CYTOLOGY, ALB and TOTAL PROTEIN on all taps to increase yield. # PENNY on CKD - worse again. Restarted on IV Alb per renal. Time Spent With Patient Time: Total time managing care of this patient today ____ minutes. Quality Stroke Does the patient have a stroke diagnosis?: No VTE Prior VTE?: No VTE Risk Level:: Medical - moderate - high VTE Device Contraindication: Treatment Not Indicated VTE Drug Contraindication: N/A - Med Ordered
--- NOTE | 2023-05-25 09:41 | HO.PM.IMPN ---
Subjective Subjective Date of Service: 05/25/23 Interval History: abd swollen SCr improved Review of Systems Review of Systems: Yes all other systems are reviewed and are negative Physical Exam Vital Signs: Vital Signs: Last Vital Signs Temp 97.0 F 05/25/23 07:24 Pulse 54 05/25/23 07:24 Resp 17 05/25/23 07:24 BP 127/60 05/25/23 07:24 Pulse Ox 97 05/25/23 07:24 O2 Del Method Room Air 05/25/23 07:24 BMI result Body Mass Index 27.9 Gen: in no acute distress HEENT: sclera anicteric, moist mucus membranes Neck: supple Lungs: clear to auscultation bilaterally Heart: regular rate and rhythm, no murmurs Abd: soft, non-tender, ascites present Ext: LUE swollen Skin: warm/well-perfused Neuro: alert and oriented x3, no focal findings Psych: appropriate affect Objective Data Active Medications Acetaminophen (Acetaminophen 325 Mg Tablet) 650 mg PO Q6H PRN PRN Reason: Pain, Mild (Pain Scale 1-3) Last Admin: 05/20/23 18:09 Dose: 650 mg Documented By: HOWARD Bisacodyl (Bisacodyl 10 Mg Supp.Rect) 10 mg [place] DAILY PRN PRN Reason: Constipation Dextrose (Dextrose 50 % 25 Gm/50 Ml Syringe) 25 gm IVPUSH Q15M PRN; Protocol PRN Reason: per Hypoglycemia Standing Ord. Enoxaparin Sodium (Enoxaparin Sodium 40 Mg/0.4 Ml Syringe) 40 mg SUBCUT Q24H [facility] Last Admin: 05/24/23 17:00 Dose: 40 mg Documented By: BAKARI Folic Acid (Folic Acid 1 Mg Tablet) 1 mg PO DAILY [facility] Last Admin: 05/24/23 08:47 Dose: 1 mg Documented By: BAKARI Gabapentin (Gabapentin 100 Mg Capsule) 100 mg PO TID [facility] Last Admin: 05/24/23 20:48 Dose: 100 mg Documented By: KARMA Glucose (Glucose Gel 15 Gm Gel..Gram.) 15 gm PO Q15M PRN; Protocol PRN Reason: per Hypoglycemia Standing Ord. Albumin Human (Kedbumin 25 %) 100 mls @ 100 mls/hr IV Q6H [facility] Stop: 05/26/23 02:29 Last Admin: 05/25/23 08:26 Dose: 100 mls/hr Documented By: REBA Albumin Human ([place]ed[place]in 25 %) 100 mls @ 100 mls/hr IV Q1H [facility] Stop: 05/27/23 10:44 Insulin Human Lispro (Insulin Lispro 100 Unit/Ml 3 Ml Vial) 0 unit SUBCUT QIDACHS [facility]; Protocol Last Admin: 05/25/23 07:54 Dose: Not Given Documented By: REBA Non-Admin Reason: No Insulin Coverage Lactulose (Lactulose 20 Gm/30 Ml Solution) 30 gm PO TID [facility] Last Admin: 05/24/23 20:48 Dose: Not Given Documented By: KARMA Non-Admin Reason: Patient Refused Lidocaine (Lidocaine 4 % Patch Adh..Patch) 1 patch TRANSDERMA DAILY [facility]; Protocol Last Admin: 05/24/23 08:45 Dose: 1 patch Documented By: BAKARI Magnesium Hydroxide (Milk Of Magnesia 30 Ml Oral.Susp) 400 ml PO DAILY PRN PRN Reason: Constipation Melatonin (Melatonin 3 Mg Tablet) 3 mg PO BEDTIME [facility] Last Admin: 05/24/23 20:48 Dose: 3 mg Documented By: KARMA Midodrine (Midodrine Hcl 10 Mg Tablet) 10 mg PO TID@0600,1200,1800 [facility] Last Admin: 05/25/23 05:34 Dose: 10 mg Documented By: KARMA Multivitamins/Vitamin C (Multivitamin Tablet) 1 tab PO DAILY [facility] Last Admin: 05/24/23 08:47 Dose: 1 tab Documented By: BAKARI Naltrexone HCl (Naltrexone Hcl 50 Mg Tablet) 50 mg PO DAILY [facility] Last Admin: 05/24/23 08:46 Dose: 50 mg Documented By: BAKARI Ondansetron HCl (Ondansetron Hcl 4 Mg/2 Ml Vial) 4 mg IVPUSH Q8H PRN PRN Reason: Nausea and Vomiting Last Admin: 05/20/23 18:09 Dose: 4 mg Documented By: HOWARD Rifaximin (Rifaximin 550 Mg Tablet) 550 mg PO BID [facility] Last Admin: 05/24/23 20:52 Dose: 550 mg Documented By: KARMA Sertraline HCl (Sertraline Hcl 50 Mg Tablet) 50 mg PO DAILY [facility] Last Admin: 05/24/23 08:47 Dose: 50 mg Documented By: BAKARI Sodium Bicarbonate (Sodium Bicarbonate 650 Mg Tablet) 650 mg PO TID [facility] Last Admin: 05/24/23 20:48 Dose: 650 mg Documented By: KARMA Sodium Biphosphate/Sodium Phosphate (Sodium Phosphate,[place]-Dibasic 133 Ml Enema) 118 ml [place] DAILY PRN PRN Reason: Constipation Sodium Chloride (0.9 % Sodium Chloride Flush 3 Ml Syringe) 3 ml IVFLUSH QSHIFT [facility] Last Admin: 05/25/23 08:26 Dose: 3 ml Documented By: REBA Thiamine HCl (Thiamine Hcl 100 Mg Tablet) 100 mg PO DAILY [facility] Last Admin: 05/24/23 08:47 Dose: 100 mg Documented By: BAKARI Labs 05/20/23 12:30 05/25/23 05:59 Labs: Laboratory Results - last 24 hr 05/24/23 05/24/23 05/24/23 10:22 11:27 16:09 Hold Purple Top SEE NOTE Anion Gap 12 Estim Creat Clear Calc 36.6 Estimated GFR 33 POC Glucose 150 H 124 H Random Glucose 183 H Calcium 8.5 Magnesium 1.7 05/24/23 05/25/23 05/25/23 20:04 05:59 07:36 Hold Purple Top Anion Gap 13 Estim Creat Clear Calc 40.0 Estimated GFR 37 POC Glucose 118 H 110 Random Glucose 118 H Calcium 8.9 Magnesium Microbiology Microbiology Results: Microbiology 05/21/23 10:00 Gram Stain - Final Ascites Fluid Anaerobic Culture - Preliminary No growth to date. Body Fluid Culture - Final No growth after 2 days Assessment and Plan (1) PENNY (acute kidney injury): Status: Acute (2) Ascites: Status: Acute Plan d6 67[facility] M [facility], chronic indwelling urinary cathter, orthostatic hypotension, DM2, GERD sent in with decreased PO, N/V recently treated for Proteus mirabilis bacteremia admitted for PENNY globus sensation aspiration during barium swallow - barium swallow 05/22: 1. Delayed silent tracheal aspiration with thick barium. 2. Mild cricopharyngeal achalasia 3. Mildly disorganized esophageal peristalsis 4. Narrowing of the GE junction that likely represents achalasia. A short segment benign stricture cannot be excluded. 5. Incomplete exam. The termination was terminated once tracheal aspiration was identified. - will perform modified/video barium swallow 05/26. GI consulted, to consider EGD depending on MBS results to investigate esophageal wall thickening vs stricture reported on barium swallow PENNY - got 100g albumin yesterday for worsening Cr and seems to have improved; will give another round of albumin and recheck BMP in AM; continue to hold diuretics cirrhosis with ascites - 5L ascites removed therapeutically 05/21/23. SAAG low inconsistent with portal HTN; will repeat paracentesis diagnostically + therapeutically 05/27/23 and send cell count/diff, Gm stain/culture, albumin, protein, cytology as per GI. Sodium restriction superficial thrombophlebitis - IV removed from LUE and cool compresses placed hepatic encephalopathy - rifaximin + lactulose N/V - resolved GERD - PPI chronic orthostatic hypotension - continue midodrine DM2 with hypoglycemia - Lantus held, continue alma-dose lispro mood disorder - continue sertraline AUD - continue thiamine, naltrexone VTE ppx - LMWH dispo - eventual return to [facility] In my clinical judgment, the patient requires continued inpatient hospitalization for the following reasons: PENNY, aspiration workup, ascites Total time managing care of this patient today: 50 minutes. Quality Stroke Does the patient have a stroke diagnosis?: No VTE Prior VTE?: No VTE Risk Level:: Medical - moderate - high VTE Device Contraindication: Treatment Not Indicated VTE Drug Contraindication: N/A - Med Ordered
[2023-05-25] MEDS: Lidocaine 4 % Patch ADH..PATCH 1 PATCH TRANSDERMA (09:58)
[2023-05-25] MEDS: Folic Acid 1 MG TABLET PO (09:58)
[2023-05-25] MEDS: Thiamine HCL 100 MG TABLET PO (09:58)
[2023-05-25] MEDS: rifAXIMin 550 MG TABLET PO ×2 (09:58→21:53)
[2023-05-25] MEDS: Naltrexone HCl 50 MG TABLET PO (09:58)
[2023-05-25] MEDS: Sertraline HCL 50 MG TABLET PO (09:58)
[2023-05-25] MEDS: Sodium Bicarbonate 650 MG TABLET PO ×3 (09:58→21:53)
[2023-05-25] MEDS: Multivitamin TABLET 1 TAB PO (09:58)
[2023-05-25] MEDS: Gabapentin 100 MG CAPSULE PO ×3 (09:58→21:53)
[2023-05-25] MEDS: Lactulose 20 GM/30 ML SOLUTION 30 GM PO (09:59)
[2023-05-25 11:27] LABS: Glucose, Whole Blood 159 mg/dL (60-115)
[2023-05-25 12:27] VITALS: BP 103/50; PULSE 68; RESP 17; TEMP 36.2
--- NOTE | 2023-05-25 12:32 | PC.NURSE ---
Patient presenting with increased anxiety and agitation. Patient's daughter visited this morning and patient became agitated after this visit. When this RN approached patient about lunch and his afternoon medications, patient began raising his voice asking why is everyone keeping track of everything I do? Why is it so important? . This RN attempted to educate patient on hospital environment and medications. Patient frequently interrupting this RN when trying to provide education and explanations.
[2023-05-25] MEDS: Insulin Lispro 100 UNIT/ML 3 ML VIAL SUBCUT ×2 (12:53→21:54)
--- NOTE | 2023-05-25 13:22 | MHC.CM.PN ---
Addendum entered by Dayan Gutierrez 05/26/23 16:01: CM RECEIVED A CALL FROM [employer], A LINE STAKER WORKING WITH PT AND HIS FAMILY SHE REPORTS THE FAMILY HAS BEEN CALLING HER FREQUENTLY COMPLAINING THAT THE PT IS CALLING THEM AT ALL HOURS AND BEING VERBALLY ABUSIVE SHE SAYS SHE HAS SUGGESTED THEY TAKE TURNS TAKING HIS CALLS SHE ALSO SAYS THEY FAMILY HAS BEEN TOLD THE PT IS THINKING OF TAKING THEM OFF THE HCP, IT IS UNCLEAR AT THIS TIME IF HE WILL DO SO, BUT DOES STATE HE DOES NOT WANT THEM GETTING ANY UPDATES. SW STATES SHE BELIEVES THE FAMILIES HOPE IS THAT PT CAN RETURN TO [facility] THEY CAN MANAGE ANY NEEDS HE MAY HAVE CM INFORMED HER THEY HAVE STR, LTC AND COULD MANAGE PRESSURIZER CARE, SO WOULD BE ABLE TO MANAGE NO MATTER WHAT HIS NEEDS BECOME SHE REPORTS SHE WILL ENCOURAGE PTS TO ENJOY THE REST WHILE HE IS NOT SHARING INFO WITH HER OF NOTE: PTS DID CALL, EPIC WILLOW SPECIALIST EXPLAINED TO HER THAT THE PT HAS ASKED SHE NOT BE UPDATED SHE STATED SHE WOULD NOT CALL AGAIN UNLESS CONTACTED Original Note: CM MET WITH PT TO FOLLOW UP ON YESTERDAYS DISCUSSION ABOUT CHANGING HIS HCP PT REPORTS HE SPOKE TO HIS SISTER AND SHE WAS WILLING TO DO IT, BUT HE WOULD LIKE CM TO SPEAK TO HER WELL OF NOTE: PTS DAUGHTER WAS IN JUST PRIOR TO CM, PT VISIBLY AGITATED AFTER VISIT CM SPOKE TO PTS SISTER, GROVER [phone], SHE REPORTS SHE UNDERSTANDS WHAT IT MEANS TO BE THE PTS HCP HOWEVER SHE HAS CONCERNS SINCE SHE WILL ALSO HAVE TO DEAL WITH HIS AND KIDS. SHE REPORTS SHE PLANS TO SPEAK TO THE FAMILY AND WILL THEN DECIDE. GROVER ALSO NOTES THE PT HCP HAD BEEN INVOKED IN THE PAST, BUT SHE WAS INFORMED IT WAS REVERSED ONLY 24 HOURS LATER. CURRENT DC PLAN IS RETURN TO [facility], CM HAS NOT SPOKEN TO PTS AND WILL NOT UNTIL HE DECIDES ON HIS HCP. GROVER WILL ALSO SPEAK TO PT ABOUT MAKING A 3RD DEMOCRAT SUCH HIS ESTATE SOFTWARE DEVELOPMENT ADVISOR, HIS HCP AGENT.
[2023-05-25 15:47] VITALS: BP 104/46; PULSE 67; RESP 16; TEMP 36.4; O2SAT 100
[2023-05-25 16:29] LABS: Glucose, Whole Blood 88 mg/dL (60-115)
[2023-05-25] MEDS: Enoxaparin Sodium 40 MG/0.4 ML SYRINGE SUBCUT (17:43)
[2023-05-25 20:00] VITALS: BP 100/50; PULSE 70; RESP 18; TEMP 36.7; O2SAT 98
[2023-05-25 20:51] LABS: Glucose, Whole Blood 153 mg/dL (60-115)
[2023-05-25] MEDS: Acetaminophen 325 MG TABLET 650 MG PO (21:52)
[2023-05-25] MEDS: Melatonin 3 MG TABLET PO (21:53)
[2023-05-26] MEDS: Albumin Human 25 % 100 ML IV ×4 (02:12→20:00)
[2023-05-26 02:19] VITALS: BP 97/51; PULSE 59; RESP 18; TEMP 36.3; O2SAT 97
[2023-05-26] MEDS: Midodrine HCl 10 MG TABLET PO ×3 (06:07→17:11)
[2023-05-26 06:32] LABS: Anion Gap 13 (12-20); Blood Urea Nitrogen 21 mg/dL (9-16); Carbon Dioxide 21 mmol/L (22-29); Chloride 113 mmol/L (96-108); Creatinine Clr Calc Pharmacy 36.8; Estimated Glomerular Filt Rate 33; Glucose Random 122 mg/dL (60-115); Potassium 3.9 mmol/L (3.3-5.1); Sodium 143 mmol/L (135-145)
[2023-05-26 07:38] LABS: Glucose, Whole Blood 125 mg/dL (60-115)
[2023-05-26 07:55] VITALS: BP 112/60; PULSE 63; RESP 17; TEMP 36.2; O2SAT 97
[2023-05-26] MEDS: 0.9 % Sodium Chloride Flush 3 ML SYRINGE IVFLUSH ×2 (08:24→13:57)
[2023-05-26] MEDS: Sertraline HCL 50 MG TABLET PO (08:25)
[2023-05-26] MEDS: Thiamine HCL 100 MG TABLET PO (08:25)
[2023-05-26] MEDS: Folic Acid 1 MG TABLET PO (08:25)
[2023-05-26] MEDS: Gabapentin 100 MG CAPSULE PO ×3 (08:25→21:54)
[2023-05-26] MEDS: rifAXIMin 550 MG TABLET PO ×2 (08:25→21:54)
[2023-05-26] MEDS: Lidocaine 4 % Patch ADH..PATCH 1 PATCH TRANSDERMA (08:25)
[2023-05-26] MEDS: Naltrexone HCl 50 MG TABLET PO (08:25)
[2023-05-26] MEDS: Multivitamin TABLET 1 TAB PO (08:25)
[2023-05-26] MEDS: Sodium Bicarbonate 650 MG TABLET PO ×3 (08:25→21:54)
[2023-05-26] MEDS: Lactulose 20 GM/30 ML SOLUTION 30 GM PO (08:26)
--- NOTE | 2023-05-26 11:04 | P.PNIM_ITS ---
Subjective Subjective Date of Service: 05/26/23 Interval History: no new complaints Review of Systems Review of Systems: Yes all other systems are reviewed and are negative Physical Exam 2 Vital Signs: Vital Signs: Last Vital Signs Temp 97.1 F 05/26/23 07:55 Pulse 63 05/26/23 07:55 Resp 17 05/26/23 07:55 BP 112/60 05/26/23 07:55 Pulse Ox 97 05/26/23 07:55 O2 Del Method Room Air 05/26/23 07:55 BMI result Body Mass Index 27.9 Gen: in no acute distress HEENT: sclera anicteric, moist mucus membranes Neck: supple Lungs: clear to auscultation bilaterally Heart: regular rate and rhythm, no murmurs Abd: soft, non-tender, ascites present Ext: trace BLE edema Skin: warm/well-perfused Neuro: alert and oriented x3, no focal findings Psych: appropriate affect Objective Data Active Medications Acetaminophen (Acetaminophen 325 Mg Tablet) 650 mg PO Q6H PRN PRN Reason: Pain, Mild (Pain Scale 1-3) Last Admin: 05/25/23 21:52 Dose: 650 mg Documented By: KARMA Bisacodyl (Bisacodyl 10 Mg Supp.Rect) 10 mg ND DAILY PRN PRN Reason: Constipation Dextrose (Dextrose 50 % 25 Gm/50 Ml Syringe) 25 gm IVPUSH Q15M PRN; Protocol PRN Reason: per Hypoglycemia Standing Ord. Enoxaparin Sodium (Enoxaparin Sodium 40 Mg/0.4 Ml Syringe) 40 mg SUBCUT Q24H [facility] Last Admin: 05/25/23 17:43 Dose: 40 mg Documented By: REBA Folic Acid (Folic Acid 1 Mg Tablet) 1 mg PO DAILY [facility] Last Admin: 05/26/23 08:25 Dose: 1 mg Documented By: OANH Gabapentin (Gabapentin 100 Mg Capsule) 100 mg PO TID [facility] Last Admin: 05/26/23 08:25 Dose: 100 mg Documented By: OANH Glucose (Glucose Gel 15 Gm Gel..Gram.) 15 gm PO Q15M PRN; Protocol PRN Reason: per Hypoglycemia Standing Ord. Albumin Human (Kedbumin 25 %) 100 mls @ 100 mls/hr IV Q1H [facility] Stop: 05/27/23 10:44 Albumin Human (Kedbumin 25 %) 100 mls @ 100 mls/hr IV Q6H [facility] Stop: 05/27/23 02:44 Last Infusion: 05/26/23 09:20 Dose: Infused Documented By: OANH Insulin Human Lispro (Insulin Lispro 100 Unit/Ml 3 Ml Vial) 0 unit SUBCUT QIDACHS [facility]; Protocol Last Admin: 05/26/23 07:37 Dose: Not Given Documented By: OANH Non-Admin Reason: No Insulin Coverage Lactulose (Lactulose 20 Gm/30 Ml Solution) 30 gm PO TID [facility] Last Admin: 05/26/23 08:26 Dose: 30 gm Documented By: OANH Lidocaine (Lidocaine 4 % Patch Adh..Patch) 1 patch TRANSDERMA DAILY [facility]; Protocol Last Admin: 05/26/23 08:25 Dose: 1 patch Documented By: OANH Magnesium Hydroxide (Milk Of Magnesia 30 Ml Oral.Susp) 400 ml PO DAILY PRN PRN Reason: Constipation Melatonin (Melatonin 3 Mg Tablet) 3 mg PO BEDTIME [facility] Last Admin: 05/25/23 21:53 Dose: 3 mg Documented By: KARMA Midodrine (Midodrine Hcl 10 Mg Tablet) 10 mg PO TID@0600,1200,1800 [facility] Last Admin: 05/26/23 06:07 Dose: 10 mg Documented By: KARMA Multivitamins/Vitamin C (Multivitamin Tablet) 1 tab PO DAILY [facility] Last Admin: 05/26/23 08:25 Dose: 1 tab Documented By: OANH Naltrexone HCl (Naltrexone Hcl 50 Mg Tablet) 50 mg PO DAILY [facility] Last Admin: 05/26/23 08:25 Dose: 50 mg Documented By: OANH Ondansetron HCl (Ondansetron Hcl 4 Mg/2 Ml Vial) 4 mg IVPUSH Q8H PRN PRN Reason: Nausea and Vomiting Last Admin: 05/20/23 18:09 Dose: 4 mg Documented By: HOWARD Rifaximin (Rifaximin 550 Mg Tablet) 550 mg PO BID [facility] Last Admin: 05/26/23 08:25 Dose: 550 mg Documented By: OANH Sertraline HCl (Sertraline Hcl 50 Mg Tablet) 50 mg PO DAILY [facility] Last Admin: 05/26/23 08:25 Dose: 50 mg Documented By: OANH Sodium Bicarbonate (Sodium Bicarbonate 650 Mg Tablet) 650 mg PO TID [facility] Last Admin: 05/26/23 08:25 Dose: 650 mg Documented By: OANH Sodium Biphosphate/Sodium Phosphate (Sodium Phosphate,[place]-Dibasic 133 Ml Enema) 118 ml ND DAILY PRN PRN Reason: Constipation Sodium Chloride (0.9 % Sodium Chloride Flush 3 Ml Syringe) 3 ml IVFLUSH QSHIFT [facility] Last Admin: 05/26/23 08:24 Dose: 3 ml Documented By: OANH Thiamine HCl (Thiamine Hcl 100 Mg Tablet) 100 mg PO DAILY [facility] Last Admin: 05/26/23 08:25 Dose: 100 mg Documented By: OANH Labs 05/20/23 12:30 05/26/23 05:33 Labs: Laboratory Results - last 24 hr 05/25/23 05/25/23 05/25/23 11:24 16:20 20:46 Anion Gap Estim Creat Clear Calc Estimated GFR POC Glucose 159 H 88 153 H Random Glucose Calcium 05/26/23 05/26/23 05:33 07:29 Anion Gap 13 Estim Creat Clear Calc 36.8 Estimated GFR 33 POC Glucose 125 H Random Glucose 122 H Calcium 9.0 Microbiology Microbiology Results: Microbiology 05/21/23 10:00 Gram Stain - Final Ascites Fluid Anaerobic Culture - Final NO GROWTH AFTER 5 DAYS Body Fluid Culture - Final No growth after 2 days 05/20/23 18:32 Urine Culture - Final Urine clean catch Yesy glabrata Assessment and Plan (1) PENNY (acute kidney injury): Status: Acute (2) Ascites: Status: Acute Plan d7 67yo M [facility], chronic indwelling urinary cathter, orthostatic hypotension, DM2, GERD sent in with decreased PO, N/V recently treated for Proteus mirabilis bacteremia admitted for PENNY globus sensation aspiration during barium swallow - barium swallow 05/22: 1. Delayed silent tracheal aspiration with thick barium. 2. Mild cricopharyngeal achalasia 3. Mildly disorganized esophageal peristalsis 4. Narrowing of the GE junction that likely represents achalasia. A short segment benign stricture cannot be excluded. 5. Incomplete exam. The termination was terminated once tracheal aspiration was identified. - will perform modified/video barium swallow 05/26. GI consulted, to consider EGD depending on MBS results to investigate esophageal wall thickening vs stricture reported on barium swallow PENNY - give another 25g albumin IV q6h x4 and recheck BMP in AM; continue to hold diuretics cirrhosis with ascites - 5L ascites removed therapeutically 05/21/23. SAAG low inconsistent with portal HTN; will repeat paracentesis diagnostically + therapeutically 05/27/23 and send cell count/diff, Gm stain/culture, albumin, protein, cytology as per GI. Sodium restriction superficial thrombophlebitis - IV removed from LUE and cool compresses placed hepatic encephalopathy - rifaximin + lactulose N/V - resolved GERD - PPI chronic orthostatic hypotension - continue midodrine DM2 with hypoglycemia - Lantus held, continue alma-dose lispro mood disorder - continue sertraline AUD - continue thiamine, naltrexone VTE ppx - LMWH dispo - eventual return to [facility] In my clinical judgment, the patient requires continued inpatient hospitalization for the following reasons: PENNY, aspiration workup, ascites Total time managing care of this patient today: 35 minutes. Quality Stroke Does the patient have a stroke diagnosis?: No VTE Prior VTE?: No VTE Risk Level:: Medical - moderate - high VTE Device Contraindication: Treatment Not Indicated VTE Drug Contraindication: N/A - Med Ordered
[2023-05-26 11:43] LABS: Glucose, Whole Blood 121 mg/dL (60-115)
--- NOTE | 2023-05-26 12:23 | PC.NURSE ---
Pt requesting that no info given to or daughter.
[2023-05-26 12:25] VITALS: BP 97/53
--- NOTE | 2023-05-26 12:55 | PC.NURSE ---
Pt requested this residential mortgage underwriter call and tell her to stop inquiring about patients health condition. stated she would stop calling.
[2023-05-26 16:04] VITALS: BP 112/55; PULSE 74; RESP 18; TEMP 36.4; O2SAT 99
[2023-05-26 17:00] LABS: Glucose, Whole Blood 164 mg/dL (60-115)
[2023-05-26] MEDS: Insulin Lispro 100 UNIT/ML 3 ML VIAL SUBCUT (17:11)
[2023-05-26] MEDS: Enoxaparin Sodium 40 MG/0.4 ML SYRINGE SUBCUT (17:11)
[2023-05-26 20:03] VITALS: BP 123/70; PULSE 70; RESP 18; TEMP 36.4; O2SAT 97
[2023-05-26 20:31] LABS: Glucose, Whole Blood 125 mg/dL (60-115)
[2023-05-26] MEDS: Melatonin 3 MG TABLET PO (21:54)
[2023-05-27] MEDS: 0.9 % Sodium Chloride Flush 3 ML SYRINGE IVFLUSH ×3 (02:10→21:03)
[2023-05-27] MEDS: Albumin Human 25 % 100 ML IV (02:11)
[2023-05-27 04:00] VITALS: BP 101/54; PULSE 75; RESP 16; TEMP 36.1; O2SAT 96
[2023-05-27] MEDS: Midodrine HCl 10 MG TABLET PO (05:52)
[2023-05-27 07:59] VITALS: BP 97/54; PULSE 73; RESP 14; TEMP 36.2; O2SAT 97
[2023-05-27 08:00] LABS: Glucose, Whole Blood 117 mg/dL (60-115)
[2023-05-27] MEDS: rifAXIMin 550 MG TABLET PO ×2 (08:07→21:03)
[2023-05-27] MEDS: Multivitamin TABLET 1 TAB PO (08:07)
[2023-05-27] MEDS: Naltrexone HCl 50 MG TABLET PO (08:08)
[2023-05-27] MEDS: Gabapentin 100 MG CAPSULE PO ×2 (08:08→21:03)
[2023-05-27] MEDS: Folic Acid 1 MG TABLET PO (08:09)
[2023-05-27] MEDS: Sertraline HCL 50 MG TABLET PO (08:09)
[2023-05-27] MEDS: Thiamine HCL 100 MG TABLET PO (08:09)
[2023-05-27] MEDS: Sodium Bicarbonate 650 MG TABLET PO ×2 (08:09→21:03)
[2023-05-27] MEDS: Lidocaine 4 % Patch ADH..PATCH 1 PATCH TRANSDERMA (08:10)
[2023-05-27 08:45] LABS: Anion Gap 13 (12-20); Blood Urea Nitrogen 20 mg/dL (9-16); Calcium 9.6 mg/dL (8.4-10.2); Carbon Dioxide 24 mmol/L (22-29); Chloride 111 mmol/L (96-108); Creatinine Clr Calc Pharmacy 38.7; Estimated Glomerular Filt Rate 36; Glucose Random 123 mg/dL (60-115); Potassium 3.2 mmol/L (3.3-5.1); Sodium 145 mmol/L (135-145)
[2023-05-27] MEDS: Lidocaine HCl 1 % MPF 5 ML VIAL SUBCUT (10:35)
[2023-05-27 10:37] LABS: MN% 82.8 %; PMN% 17.2 %; WBC Peritoneal Fluid 0.135 X10*3/uL
[2023-05-27 10:44] LABS: RBC Peritoneal Fluid < 0.002 X10*6/uL
[2023-05-27 10:56] VITALS: BP 110/57; PULSE 70; RESP 18; TEMP 36.6; O2SAT 96
--- NOTE | 2023-05-27 11:21 | MHC.CM.PN ---
EMR REVIEWED AND PER MD ROUNDS, PT IS NOT MEDICALLY CLEAR FOR DC (WILL HAVE MODIFIED /VIDEO BS AND THERAPEUTIC PARACENTESIS TODAY) [facility] UPDATED AND CM WILL CONTINUE TO FOLLOW FOR ANY CHANGE IN DC PLAN/NEEDS.
[2023-05-27 11:27] LABS: BF Shift QC OK YES; Lymphocyte Peritoneal Fl 22 %; Monocytes Peritoneal Fl 9 %; Neutrophils Peritoneal Fluid 7 %; Other Peritioneal Fl 62 %
[2023-05-27 11:48] LABS: Glucose, Whole Blood 143 mg/dL (60-115)
--- NOTE | 2023-05-27 13:24 | PC.NURSE ---
Pt. stated that his dentures were missing since yesterday. director of safety notified, belonging list checked with no documentation of dentures. Pt. updated about the findings while staff looking for them. Pt. Experience Statistical Geneticist notified-Evi and initiated a call to [facility] where pt. resided before admission to the Hospital. Staff at [facility] confirmed that pt's dentures were there.
--- NOTE | 2023-05-27 14:46 | P.PNIM_ITS ---
Subjective Subjective Date of Service: 05/28/23 Interval History: Tolerated ultrasound paracentesis this a.m. however afternoon became agitated and confused. Review of Systems Denies chest pain Denies shortness of breath Denies nausea vomiting diarrhea Denies fever chills Physical Exam 2 Vital Signs: Vital Signs: Last Vital Signs Temp 98 F 05/27/23 10:56 Pulse 70 05/27/23 10:56 Resp 18 05/27/23 10:56 BP 110/57 L 05/27/23 10:56 Pulse Ox 96 05/27/23 10:56 O2 Del Method Room Air 05/27/23 10:56 BMI result Body Mass Index 27.9 Const: Other: No acute issues. Agitated confused Resp: Other: Clear to auscultation bilaterally no rales rhonchi or wheezes Cardio: Other: No S4; positive S1-S2; no S3 murmurs rubs or gallops GI: Other: Soft tender. Fluid wave improved post paracentesis Extrem: Other: No edema bilaterally Objective Data Active Medications Acetaminophen (Acetaminophen 325 Mg Tablet) 650 mg PO Q6H PRN PRN Reason: Pain, Mild (Pain Scale 1-3) Last Admin: 05/25/23 21:52 Dose: 650 mg Documented By: KARMA Bisacodyl (Bisacodyl 10 Mg Supp.Rect) [address] DAILY PRN PRN Reason: Constipation Dextrose (Dextrose 50 % 25 Gm/50 Ml Syringe) 25 gm IVPUSH Q15M PRN; Protocol PRN Reason: per Hypoglycemia Standing Ord. Enoxaparin Sodium (Enoxaparin Sodium 40 Mg/0.4 Ml Syringe) 40 mg SUBCUT Q24H [facility] Last Admin: 05/26/23 17:11 Dose: 40 mg Documented By: OANH Folic Acid (Folic Acid 1 Mg Tablet) 1 mg PO DAILY [facility] Last Admin: 05/27/23 08:09 Dose: 1 mg Documented By: DONN Gabapentin (Gabapentin 100 Mg Capsule) 100 mg PO TID [facility] Last Admin: 05/27/23 08:08 Dose: 100 mg Documented By: DONN Glucose (Glucose Gel 15 Gm Gel..Gram.) 15 gm PO Q15M PRN; Protocol PRN Reason: per Hypoglycemia Standing Ord. Albumin Human (Kedbumin 25 %) 100 mls @ 100 mls/hr IV Q1H [facility] Stop: 05/27/23 16:29 Insulin Human Lispro (Insulin Lispro 100 Unit/Ml 3 Ml Vial) 0 unit SUBCUT QIDACHS [facility]; Protocol Last Admin: 05/27/23 12:02 Dose: Not Given Documented By: DONN Non-Admin Reason: No Insulin Coverage Lactulose (Lactulose 20 Gm/30 Ml Solution) 30 gm PO TID [facility] Last Admin: 05/27/23 08:31 Dose: Not Given Documented By: DONN Non-Admin Reason: Patient Refused Lidocaine (Lidocaine 4 % Patch Adh..Patch) 1 patch TRANSDERMA DAILY [facility]; Protocol Last Admin: 05/27/23 08:10 Dose: 1 patch Documented By: DONN Magnesium Hydroxide (Milk Of Magnesia 30 Ml Oral.Susp) 400 ml PO DAILY PRN PRN Reason: Constipation Melatonin (Melatonin 3 Mg Tablet) 3 mg PO BEDTIME [facility] Last Admin: 05/26/23 21:54 Dose: 3 mg Documented By: REBA Midodrine (Midodrine Hcl 10 Mg Tablet) 10 mg PO TID@0600,1200,1800 [facility] Last Admin: 05/27/23 13:40 Dose: Not Given Documented By: DONN Non-Admin Reason: pt. refused Multivitamins/Vitamin C (Multivitamin Tablet) 1 tab PO DAILY [facility] Last Admin: 05/27/23 08:07 Dose: 1 tab Documented By: DONN Naltrexone HCl (Naltrexone Hcl 50 Mg Tablet) 50 mg PO DAILY [facility] Last Admin: 05/27/23 08:08 Dose: 50 mg Documented By: DONN Ondansetron HCl (Ondansetron Hcl 4 Mg/2 Ml Vial) 4 mg IVPUSH Q8H PRN PRN Reason: Nausea and Vomiting Last Admin: 05/20/23 18:09 Dose: 4 mg Documented By: HOWARD Rifaximin (Rifaximin 550 Mg Tablet) 550 mg PO BID [facility] Last Admin: 05/27/23 08:07 Dose: 550 mg Documented By: DONN Sertraline HCl (Sertraline Hcl 50 Mg Tablet) 50 mg PO DAILY [facility] Last Admin: 05/27/23 08:09 Dose: 50 mg Documented By: DONN Sodium Bicarbonate (Sodium Bicarbonate 650 Mg Tablet) 650 mg PO TID [facility] Last Admin: 05/27/23 08:09 Dose: 650 mg Documented By: DONN Sodium Biphosphate/Sodium Phosphate (Sodium Phosphate,[place]-Dibasic 133 Ml Enema) [address] DAILY PRN PRN Reason: Constipation Sodium Chloride (0.9 % Sodium Chloride Flush 3 Ml Syringe) 3 ml IVFLUSH QSHIFT [facility] Last Admin: 05/27/23 08:29 Dose: 3 ml Documented By: DONN Thiamine HCl (Thiamine Hcl 100 Mg Tablet) 100 mg PO DAILY [facility] Last Admin: 05/27/23 08:09 Dose: 100 mg Documented By: DONN Labs 05/28/23 08:04 05/28/23 08:04 Labs: Laboratory Results - last 24 hr 05/26/23 05/26/23 05/27/23 16:55 20:27 07:56 Hold Purple Top Anion Gap Estim Creat Clear Calc Estimated GFR POC Glucose 164 H 125 H 117 H Random Glucose Calcium Peritoneal WBC Peritoneal RBC Periton Neutrophils Periton Lymphocytes Peritoneal Monocytes Peritoneal Other Cells 05/27/23 05/27/23 05/27/23 08:04 09:45 11:12 Hold Purple Top SEE NOTE Anion Gap 13 Estim Creat Clear Calc 38.7 Estimated GFR 36 POC Glucose 143 H Random Glucose 123 H Calcium 9.6 D Peritoneal WBC 0.135 Peritoneal RBC < 0.002 Periton Neutrophils 7 Periton Lymphocytes 22 Peritoneal Monocytes 9 Peritoneal Other Cells 62 Microbiology Microbiology Results: Microbiology 05/27/23 09:45 Gram Stain - Final Ascites Fluid Assessment and Plan (1) Dysphagia: Status: Acute (2) PENNY (acute kidney injury): Status: Acute Plan d7 67yo M [facility], chronic indwelling urinary cathter, orthostatic hypotension, DM2, GERD sent in with decreased PO, N/V recently treated for Proteus mirabilis bacteremia admitted for PENNY globus sensation aspiration during barium swallow - barium swallow 05/22: 1. Delayed silent tracheal aspiration with thick barium. 2. Mild cricopharyngeal achalasia 3. Mildly disorganized esophageal peristalsis 4. Narrowing of the GE junction that likely represents achalasia. A short segment benign stricture cannot be excluded. 5. Incomplete exam. The termination was terminated once tracheal aspiration was identified. - will perform modified/video barium swallow 05/26. GI consulted, to consider EGD depending on MBS results to investigate esophageal wall thickening vs stricture reported on barium swallow PENNY - give another 25g albumin IV q6h x4 and recheck BMP in AM; continue to hold diuretics cirrhosis with ascites - 5L ascites removed therapeutically 05/21/23. SAAG low inconsistent with portal HTN; will repeat paracentesis diagnostically + therapeutically 05/27/23 and send cell count/diff, Gm stain/culture, albumin, protein, cytology as per GI. Sodium restriction superficial thrombophlebitis - IV removed from LUE and cool compresses placed hepatic encephalopathy - rifaximin + lactulose N/V - resolved GERD - PPI chronic orthostatic hypotension - continue midodrine DM2 with hypoglycemia - Lantus held, continue alma-dose lispro mood disorder - continue sertraline AUD - continue thiamine, naltrexone VTE ppx - LMWH dispo - eventual return [facility] at [facility] In my clinical judgment, the patient requires continued inpatient hospitalization for the following reasons: PENNY, aspiration workup, ascites Quality Stroke Does the patient have a stroke diagnosis?: No VTE Prior VTE?: No VTE Risk Level:: Medical - moderate - high VTE Device Contraindication: Treatment Not Indicated VTE Drug Contraindication: N/A - Med Ordered
--- NOTE | 2023-05-27 15:13 | MHC.SLORD ---
Speech Language Pathology Order Status: MBSS was scheduled for 2:30pm- Cancelled per Dr. Ga. IMPROVEMENT COORDINATOR to f/u tomorrow.
--- NOTE | 2023-05-27 15:14 | MHC.SLORD ---
Speech Language Pathology Order Status: MBSS was scheduled for 2:30pm today, deferred per Dr. Ga as patient became agitated after paracentesis and would likely not participate. MBSS to be scheduled tomorrow.
--- NOTE | 2023-05-27 16:23 | PC.NURSE ---
Pt. refused all his medications ths evening including Albumin, refused POC, and vital checks. Dr. Ga notified. He's also confused and seems paranoid, talking about we are giving him stuff he's not suppose to take.
[2023-05-27] MEDS: Melatonin 3 MG TABLET PO (21:03)
[2023-05-28 04:00] VITALS: BP 95/45; PULSE 81; RESP 16; TEMP 36.3; O2SAT 98
[2023-05-28] MEDS: Midodrine HCl 10 MG TABLET PO ×3 (05:09→17:16)
[2023-05-28 07:34] VITALS: BP 92/51; PULSE 86; RESP 14; TEMP 36.7; O2SAT 97
[2023-05-28 07:43] LABS: Glucose, Whole Blood 136 mg/dL (60-115)
[2023-05-28 08:10] LABS: MANUAL DIFF FLAG NO
[2023-05-28 08:13] LABS: Basophils Absolute Auto 0.1 X10*3/uL (0.0-0.2); Basophils Percent Auto 0.8 % (0-2); Eosinophils Absolute Auto 0.2 X10*3/uL (0.0-0.4); Hematocrit 24.9 % (42.0-52.0); Hemoglobin 8.5 g/dl (14.0-18.0); Imm Gran Abs Auto 0.09 X10*3/uL (0.00-0.03); Imm Gran Pct Auto 1.5 % (0.0-0.4); Lymphocytes Absolute Auto 2.3 X10*3/uL (1.2-4.9); Lymphocytes Percent Auto 37.4 % (20-40); Mean Corpuscular HGB Conc 34.1 g/dl (31.0-36.0); Mean Corpuscular Hemoglobin 29.3 pg (27.0-33.0); Mean Corpuscular Volume 85.9 fL (80.0-98.0); Mean Platelet Volume 10.6 fL (9.4-12.4); Monocytes Absolute Auto 0.6 X10*3/uL (0.1-1.2); Monocytes Percent Auto 9.3 % (2-11); Neutrophils Absolute Auto 2.9 x10*3/uL (2.0-8.3); Platelet Count 141 X10*3/uL (160-400)
[2023-05-28 08:31] LABS: Ammonia 31 umol/L (13-55)
[2023-05-28 08:46] LABS: Alanine Aminotransferase 10 U/L (0-40); Albumin Level 3.6 g/dL (3.5-5.0); Alkaline Phosphatase 50 U/L (39-117); Anion Gap 15 (12-20); Aspartate Amino Transferase 24 U/L (5-37); Blood Urea Nitrogen 21 mg/dL (9-16); Calcium 8.7 mg/dL (8.4-10.2); Carbon Dioxide 20 mmol/L (22-29); Chloride 110 mmol/L (96-108); Creatinine Clr Calc Pharmacy 47.3; Estimated Glomerular Filt Rate 45; Glucose Random 135 mg/dL (60-115); Potassium 3.6 mmol/L (3.3-5.1); Sodium 141 mmol/L (135-145); Total Protein 5.3 g/dL (6.5-8.0)
[2023-05-28] MEDS: 0.9 % Sodium Chloride Flush 3 ML SYRINGE IVFLUSH ×3 (09:31→23:40)
[2023-05-28] MEDS: Naltrexone HCl 50 MG TABLET PO (09:31)
[2023-05-28] MEDS: Sertraline HCL 50 MG TABLET PO (09:31)
[2023-05-28] MEDS: Folic Acid 1 MG TABLET PO (09:32)
[2023-05-28] MEDS: Lidocaine 4 % Patch ADH..PATCH 1 PATCH TRANSDERMA (09:32)
[2023-05-28] MEDS: Gabapentin 100 MG CAPSULE PO ×3 (09:32→22:06)
[2023-05-28] MEDS: Multivitamin TABLET 1 TAB PO (09:32)
[2023-05-28] MEDS: rifAXIMin 550 MG TABLET PO ×2 (09:32→22:06)
[2023-05-28] MEDS: Thiamine HCL 100 MG TABLET PO (09:32)
[2023-05-28] MEDS: Sodium Bicarbonate 650 MG TABLET PO ×3 (09:46→22:06)
--- NOTE | 2023-05-28 11:15 | PC.NURSE ---
Excoriated perirectum related to repeated stool incontinence. Area cleansed and barrier cream applied.
[2023-05-28 11:16] VITALS: BP 92/51; PULSE 86; O2SAT 97
[2023-05-28 11:24] LABS: Glucose, Whole Blood 137 mg/dL (60-115)
--- NOTE | 2023-05-28 12:22 | MHC.SPEECHCO ---
Pt scheduled for MBSS today 05/27 @ 14:30. CAR RENTAL SALES ASSISTANT spoke with Pt to explain procedure and rationale, he was accepting at that time. Radiology will arrange for transport. No prep needed.
[2023-05-28 15:12] VITALS: BP 136/61; PULSE 75; RESP 17; TEMP 36.5; O2SAT 99
--- NOTE | 2023-05-28 15:27 | HO.PM.IMPN ---
Subjective Subjective Date of Service: 05/28/23 Interval History: Markedly improved overnight. Mentation back to baseline Review of Systems Denies chest pain Denies shortness of breath Denies nausea vomiting diarrhea Denies fever chills Physical Exam Vital Signs: Vital Signs: Last Vital Signs Temp 97.7 F 05/28/23 15:12 Pulse 75 05/28/23 15:12 Resp 17 05/28/23 15:12 BP 136/61 05/28/23 15:12 Pulse Ox 99 05/28/23 15:12 O2 Del Method Room Air 05/28/23 15:12 BMI result Body Mass Index 27.9 Const: Other: No acute issues. Mentation back to baseline Resp: Other: Clear to auscultation bilaterally no rales rhonchi or wheezes Cardio: Other: No S4; positive S1-S2; no S3 murmurs rubs or gallops GI: Other: Soft tender. Fluid wave improved post paracentesis Extrem: Other: No edema bilaterally Objective Data Active Medications Acetaminophen (Acetaminophen 325 Mg Tablet) 650 mg PO Q6H PRN PRN Reason: Pain, Mild (Pain Scale 1-3) Last Admin: 05/25/23 21:52 Dose: 650 mg Documented By: KARMA Bisacodyl (Bisacodyl 10 Mg Supp.Rect) 10 mg LA DAILY PRN PRN Reason: Constipation Dextrose (Dextrose 50 % 25 Gm/50 Ml Syringe) 25 gm IVPUSH Q15M PRN; Protocol PRN Reason: per Hypoglycemia Standing Ord. Enoxaparin Sodium (Enoxaparin Sodium 40 Mg/0.4 Ml Syringe) 40 mg SUBCUT Q24H [facility] Last Admin: 05/27/23 17:31 Dose: Not Given Documented By: DONN Non-Admin Reason: Patient Refused Folic Acid (Folic Acid 1 Mg Tablet) 1 mg PO DAILY [facility] Last Admin: 05/28/23 09:32 Dose: 1 mg Documented By: DONN Gabapentin (Gabapentin 100 Mg Capsule) 100 mg PO TID [facility] Last Admin: 05/28/23 15:05 Dose: 100 mg Documented By: DONN Glucose (Glucose Gel 15 Gm Gel..Gram.) 15 gm PO Q15M PRN; Protocol PRN Reason: per Hypoglycemia Standing Ord. Insulin Human Lispro (Insulin Lispro 100 Unit/Ml 3 Ml Vial) 0 unit SUBCUT QIDACHS [facility]; Protocol Last Admin: 05/28/23 11:40 Dose: Not Given Documented By: DONN Non-Admin Reason: No Insulin Coverage Lactulose (Lactulose 20 Gm/30 Ml Solution) 30 gm PO TID [facility] Last Admin: 05/28/23 15:06 Dose: Not Given Documented By: DONN Non-Admin Reason: diarrhea Lidocaine (Lidocaine 4 % Patch Adh..Patch) 1 patch TRANSDERMA DAILY [facility]; Protocol Last Admin: 05/28/23 09:32 Dose: 1 patch Documented By: DONN Magnesium Hydroxide (Milk Of Magnesia 30 Ml Oral.Susp) 400 ml PO DAILY PRN PRN Reason: Constipation Melatonin (Melatonin 3 Mg Tablet) 3 mg PO BEDTIME [facility] Last Admin: 05/27/23 21:03 Dose: 3 mg Documented By: NAT Midodrine (Midodrine Hcl 10 Mg Tablet) 10 mg PO TID@0600,1200,1800 [facility] Last Admin: 05/28/23 11:59 Dose: 10 mg Documented By: DONN Multivitamins/Vitamin C (Multivitamin Tablet) 1 tab PO DAILY [facility] Last Admin: 05/28/23 09:32 Dose: 1 tab Documented By: DONN Naltrexone HCl (Naltrexone Hcl 50 Mg Tablet) 50 mg PO DAILY [facility] Last Admin: 05/28/23 09:31 Dose: 50 mg Documented By: DONN Ondansetron HCl (Ondansetron Hcl 4 Mg/2 Ml Vial) 4 mg IVPUSH Q8H PRN PRN Reason: Nausea and Vomiting Last Admin: 05/20/23 18:09 Dose: 4 mg Documented By: HOWARD Rifaximin (Rifaximin 550 Mg Tablet) 550 mg PO BID [facility] Last Admin: 05/28/23 09:32 Dose: 550 mg Documented By: DONN Sertraline HCl (Sertraline Hcl 50 Mg Tablet) 50 mg PO DAILY [facility] Last Admin: 05/28/23 09:31 Dose: 50 mg Documented By: DONN Sodium Bicarbonate (Sodium Bicarbonate 650 Mg Tablet) 650 mg PO TID [facility] Last Admin: 05/28/23 15:05 Dose: 650 mg Documented By: DONN Sodium Biphosphate/Sodium Phosphate (Sodium Phosphate,Pacific-Dibasic 133 Ml Enema) 118 ml LA DAILY PRN PRN Reason: Constipation Sodium Chloride (0.9 % Sodium Chloride Flush 3 Ml Syringe) 3 ml IVFLUSH QSHIFT [facility] Last Admin: 05/28/23 15:06 Dose: 3 ml Documented By: DONN Thiamine HCl (Thiamine Hcl 100 Mg Tablet) 100 mg PO DAILY [facility] Last Admin: 05/28/23 09:32 Dose: 100 mg Documented By: DONN Labs 05/28/23 08:04 05/28/23 08:04 Labs: Laboratory Results - last 24 hr 05/28/23 05/28/23 05/28/23 07:37 08:04 11:11 MCV 85.9 MCH 29.3 MCHC 34.1 RDW 16.0 Plt Count 141 L D MPV 10.6 Immature Gran % (Auto) 1.5 H Neut % (Auto) 48.0 Lymph % (Auto) 37.4 [place] % (Auto) 9.3 Eos % (Auto) 3.0 Baso % (Auto) 0.8 Lymph # (Auto) 2.3 [place] # (Auto) 0.6 Eos # (Auto) 0.2 Baso # (Auto) 0.1 Abs Immat Gran (auto) 0.09 H Absolute Neuts (auto) 2.9 Absolute Nucleated RBC 0.000 Nucleated RBC % (auto) 0.0 Anion Gap 15 Estim Creat Clear Calc 47.3 Estimated GFR 45 POC Glucose 136 H 137 H Random Glucose 135 H Calcium 8.7 D Total Bilirubin 2.0 H AST 24 ALT 10 Alkaline Phosphatase 50 Ammonia 31 Total Protein 5.3 L Albumin 3.6 Microbiology Microbiology Results: Microbiology 05/27/23 09:45 Gram Stain - Final Ascites Fluid Anaerobic Culture - Preliminary No growth to date. Body Fluid Culture - Preliminary No growth to date. Assessment and Plan (1) Ascites: Status: Acute (2) Esophageal stricture: Status: Acute (3) Encephalopathy: Status: Acute Plan 67yo M [facility], chronic indwelling urinary cathter, orthostatic hypotension, DM2, GERD sent in with decreased PO, N/V..recently treated for Proteus mirabilis bacteremia..admitted for PENNY. Noted to have increased ascites 1.Cirrhosis -5 L fluid drained -creatinine an ammonia both normal this a.m. -pathology pending 2.PENNY - as above; responded well to IV albumin -follow renals/divalents 3.Hepatic encephalopathy -ammonia normal this a.m. -mentation at [place] [id number] - rifaximin + lactulose -MBBS today 4.DM2 with hypoglycemia -acceptable control off therapies - lispro correctional scale -adjust as indicated 5.Mood disorder - continue sertraline -ask psych input LMWH Full code In my clinical judgment, the patient requires continued inpatient hospitalization for the following reasons: PENNY, aspiration workup, ascites Quality Stroke Does the patient have a stroke diagnosis?: No VTE Prior VTE?: No VTE Risk Level:: Medical - moderate - high VTE Device Contraindication: Treatment Not Indicated VTE Drug Contraindication: N/A - Med Ordered
[2023-05-28 16:21] LABS: Glucose, Whole Blood 148 mg/dL (60-115)
--- NOTE | 2023-05-28 16:42 | MHC.SPEECHCO ---
MBSS complete. Pt observed to have penetration to the level of the vocal folds that was subsequently removed with a cue to clear his throat. [place]-thick liquids lessened the extent of laryngeal penetration, but did not eliminate it and result in more pharyngeal residue than with thin liquids. Mastication was delayed due to limited teeth. Recommending continue with Regular Solids with Thin Liquids, but provide frequent cues and reminders to swallow liquids one sip at a time and avoid consecutive sips. Full report to follow.
--- NOTE | 2023-05-28 16:45 | HO.WOUND ---
Wound Consult: Initial 67yr old?M admitted to [facility] on 05/20/23 - See progress notes and H&P for detailed history.? Wound consult placed for Left Forearm and Buttock wound.? Patient agreeable to assessment and photo documentation.? Left Forearm Etiology: ?Etiology Unknown Consider abrasion - not pressure or moisture related not consistent with skin tear Measurements: see charting for detailed measurement Wound Bed: dried red scabbed wound bed Drainage / Odor: None noted Edges: ? attached and irregular [place] wound: Excoriation noted - patient denies itching and scratching - ? No Induration, Fluctuance or Warmth noted Pain: denies Goals of Treatment: ? Moist wound healing with xeroform Buttocks / Perianal Etiology: ??MASD IAD Moisture Associated Dermatitis Incontinent Associated Dermatitis Wound Bed: scattered areas of denuded tissue partial thickness areas of tissue loss pink moist wound bed Drainage / Odor: None noted Edges: ? mirrored in some areas and irregular and scattered Kiana wound: ? No Induration, Fluctuance or Warmth noted Pain: reports pain and burning Goals of Treatment: Barrier cream triad to protect from moisture and friction Recommendations: 1. Turn and Reposition every 2 hours and as needed for patient comfort.? Use pillows or wedges to support off loading positions. 2. Off Load all bony prominences with use of pillows and heel boots if needed.? Apply Preventative foams where needed. ? 3. Monitor for incontinence and moisture control, use barrier creams when needed for prevention and treatment. 4. Provide adequate and supplemental nutrition.? 5. Order or Continue low air loss mattress. 6. When applicable maintain blood glucose levels per Providers order. 7. Left Forearm - Cleanse with normal saline, pat dry. ?Apply double layer Xeroform secure with Abd pads, gauze wrap and tape or foam dressing. Change Daily. 8. Buttock - Off Load Pressure - Cleanse with PH balance spray or wipes, pat dry. ?Apply thin layer of Triad to wound bed - only pat and dab no scrub and rub when soiling occurs. Reapply thin layer PRN after each episode of incontinence. Re-consult wound care Nurse for wound deterioration or wound changes.
[2023-05-28] MEDS: Enoxaparin Sodium 40 MG/0.4 ML SYRINGE SUBCUT (17:16)
--- NOTE | 2023-05-28 18:47 | P.PNNP_ITS ---
Subjective Subjective Date of Service: 05/28/23 Interval history: Markedly improved overnight. Mentation back to baseline Physical Exam 2 Vital Signs: Vital Signs: Last Vital Signs Temp 97.7 F 05/28/23 15:12 Pulse 75 05/28/23 15:12 Resp 17 05/28/23 15:12 BP 136/61 05/28/23 15:12 Pulse Ox 99 05/28/23 15:12 O2 Del Method Room Air 05/28/23 15:12 BMI result Body Mass Index 27.9 Const: General: comfortable and no acute distress O rientation/consciousness: patient oriented x3 HEENT: Head: Yes normocephalic Mouth: Normal oral and palatal mucosa present Eyes: EOM: EOMs intact bilaterally Neck: Neck: Yes supple Resp: Auscultation: clear to auscultation bilaterally Cardio: Jugular venous distension: no JVD Rate: regular rate Heart sounds: Murmur heart sound present GI: Palpation (GI): Soft to palpation Auscultation: normal bowel sounds : General: Yes no CVA tenderness Back/Spine/Pelvis: Back: no CVA tenderness Skin: General skin exam: no rashes or lesions noted Neuro: General: patient oriented x3 and moves all extremities Objective Data Labs 05/28/23 08:04 05/28/23 08:04 Labs: Laboratory Results - last 24 hr 05/28/23 05/28/23 05/28/23 07:37 08:04 11:11 WBC 6.0 RBC 2.90 L D Hgb 8.5 L D Hct 24.9 L D MCV 85.9 MCH 29.3 MCHC 34.1 RDW 16.0 Plt Count 141 L D MPV 10.6 Immature Gran % (Auto) 1.5 H Neut % (Auto) 48.0 Lymph % (Auto) 37.4 [place] % (Auto) 9.3 Eos % (Auto) 3.0 Baso % (Auto) 0.8 Lymph # (Auto) 2.3 [place] # (Auto) 0.6 Eos # (Auto) 0.2 Baso # (Auto) 0.1 Abs Immat Gran (auto) 0.09 H Absolute Neuts (auto) 2.9 Absolute Nucleated RBC 0.000 Nucleated RBC % (auto) 0.0 Sodium 141 Potassium 3.6 Chloride 110 H Carbon Dioxide 20 L Anion Gap 15 BUN 21 H Creatinine 1.55 H Estim Creat Clear Calc 47.3 Estimated GFR 45 POC Glucose 136 H 137 H Random Glucose 135 H Calcium 8.7 D Total Bilirubin 2.0 H AST 24 ALT 10 Alkaline Phosphatase 50 Ammonia 31 Total Protein 5.3 L Albumin 3.6 05/28/23 16:18 WBC RBC Hgb Hct MCV MCH MCHC RDW Plt Count MPV Immature Gran % (Auto) Neut % (Auto) Lymph % (Auto) [place] % (Auto) Eos % (Auto) Baso % (Auto) Lymph # (Auto) [place] # (Auto) Eos # (Auto) Baso # (Auto) Abs Immat Gran (auto) Absolute Neuts (auto) Absolute Nucleated RBC Nucleated RBC % (auto) Sodium Potassium Chloride Carbon Dioxide Anion Gap BUN Creatinine Estim Creat Clear Calc Estimated GFR POC Glucose 148 H Random Glucose Calcium Total Bilirubin AST ALT Alkaline Phosphatase Ammonia Total Protein Albumin Microbiology Microbiology Results: Microbiology 05/27/23 09:45 Ascites Fluid Gram Stain - Final 05/27/23 09:45 Ascites Fluid Anaerobic Culture - Preliminary No growth to date. 05/27/23 09:45 Ascites Fluid Body Fluid Culture - Preliminary No growth to date. 05/21/23 10:00 Ascites Fluid Gram Stain - Final 05/21/23 10:00 Ascites Fluid Anaerobic Culture - Final NO GROWTH AFTER 5 DAYS 05/21/23 10:00 Ascites Fluid Body Fluid Culture - Final No growth after 2 days 05/20/23 18:32 Urine clean catch Urine Culture - Final Yesy glabrata Procedures Date of Service Date of Service: 05/28/23 Assessment & Plan Assessment and plan (1) PENNY (acute kidney injury): Status: Acute Plan PENNY superimposed on CKD 3 most likely had tubular injury. No obstruction based on CT scan; No reason to suspect GN and or AIN Serum creatinine improving and is close to baseline No indication for renal replacement.Continue with current supportive care Progress Note: Quality Stroke Does the patient have a stroke diagnosis?: No
[2023-05-28 19:45] VITALS: BP 125/56; PULSE 77; RESP 17; TEMP 36.9; O2SAT 95
[2023-05-28 20:00] VITALS: BP 124/70; PULSE 52; RESP 18; TEMP 37.2; O2SAT 96
[2023-05-28 20:34] LABS: Glucose, Whole Blood 144 mg/dL (60-115)
[2023-05-28] MEDS: Melatonin 3 MG TABLET PO (22:06)
[2023-05-29 03:34] VITALS: BP 96/53; PULSE 75; RESP 16; TEMP 36.4; O2SAT 98
[2023-05-29] MEDS: Midodrine HCl 10 MG TABLET PO ×3 (05:42→18:15)
[2023-05-29 06:07] LABS: Ammonia 15 umol/L (13-55)
[2023-05-29 06:37] LABS: MANUAL DIFF FLAG NO
[2023-05-29 06:42] LABS: Basophils Percent Auto 0.6 % (0-2); Eosinophils Absolute Auto 0.2 X10*3/uL (0.0-0.4); Eosinophils Percent Auto 3.1 % (0-4); Hematocrit 26.1 % (42.0-52.0); Hemoglobin 8.9 g/dl (14.0-18.0); Imm Gran Abs Auto 0.02 X10*3/uL (0.00-0.03); Imm Gran Pct Auto 0.3 % (0.0-0.4); Lymphocytes Percent Auto 31.5 % (20-40); Mean Corpuscular HGB Conc 34.1 g/dl (31.0-36.0); Mean Corpuscular Hemoglobin 29.8 pg (27.0-33.0); Mean Corpuscular Volume 87.3 fL (80.0-98.0); Mean Platelet Volume 10.7 fL (9.4-12.4); Monocytes Absolute Auto 0.6 X10*3/uL (0.1-1.2); Monocytes Percent Auto 9.9 % (2-11); Neutrophils Absolute Auto 3.5 x10*3/uL (2.0-8.3); Neutrophils Percent Auto 54.6 % (45-73); Platelet Count 149 X10*3/uL (160-400); Red Blood Count 2.99 X10*6/uL (4.60-5.80); Red Cell Distribution Width 16.1 % (11.0-16.0); White Blood Count 6.4 X10*3/uL (4.8-10.8)
[2023-05-29 06:47] VITALS: BP 114/58; PULSE 72; RESP 16; TEMP 36.6; O2SAT 97
[2023-05-29 06:59] LABS: Glucose, Whole Blood 194 mg/dL (60-115)
[2023-05-29 07:05] LABS: Alanine Aminotransferase 9 U/L (0-40); Albumin Level 3.6 g/dL (3.5-5.0); Alkaline Phosphatase 54 U/L (39-117); Anion Gap 10 (12-20); Aspartate Amino Transferase 24 U/L (5-37); Bilirubin Total 2.3 mg/dL (0.0-1.0); Blood Urea Nitrogen 26 mg/dL (9-16); Calcium 9.3 mg/dL (8.4-10.2); Carbon Dioxide 27 mmol/L (22-29); Chloride 108 mmol/L (96-108); Creatinine Clr Calc Pharmacy 44.7; Estimated Glomerular Filt Rate 42; Glucose Fasting 158 mg/dL (60-99); Potassium 3.4 mmol/L (3.3-5.1); Sodium 142 mmol/L (135-145); Total Protein 5.6 g/dL (6.5-8.0)
[2023-05-29] MEDS: Insulin Lispro 100 UNIT/ML 3 ML VIAL SUBCUT (08:10)
[2023-05-29] MEDS: rifAXIMin 550 MG TABLET PO (08:11)
[2023-05-29] MEDS: Multivitamin TABLET 1 TAB PO (08:11)
[2023-05-29] MEDS: Sertraline HCL 50 MG TABLET PO (08:11)
[2023-05-29] MEDS: Naltrexone HCl 50 MG TABLET PO (08:11)
[2023-05-29] MEDS: Gabapentin 100 MG CAPSULE PO ×2 (08:11→14:23)
[2023-05-29] MEDS: Sodium Bicarbonate 650 MG TABLET PO ×2 (08:11→14:23)
[2023-05-29] MEDS: Folic Acid 1 MG TABLET PO (08:11)
[2023-05-29] MEDS: 0.9 % Sodium Chloride Flush 3 ML SYRINGE IVFLUSH ×2 (08:11→17:11)
[2023-05-29] MEDS: Thiamine HCL 100 MG TABLET PO (08:11)
[2023-05-29] MEDS: Lidocaine 4 % Patch ADH..PATCH 1 PATCH TRANSDERMA (08:12)
[2023-05-29 11:12] LABS: Glucose, Whole Blood 90 mg/dL (60-115)
--- NOTE | 2023-05-29 12:06 | MHC.CM.PN ---
DISCHARGE PLANS ARE PENDING REVIEW OF BARIUM SWALLOW. POSSIBLE NEED FOR EGD. CASE MANAGEMENT FOLLOWING [facility] MADE AWARE.
--- NOTE | 2023-05-29 12:09 | MHC.SL.IMP ---
Date of Plan of Treatment: 05/28/23 Onset of Symptoms/Illness: 05/28/23 Date Treatment Started: 05/28/23 Admitting Diagnosis: GERD Primary Speech & Language Diagnosis: R13.12 Oropharyngeal Phase Dysphagia Secondary Speech & Language Diagnosis: Reason for Today's Visit: [id number] Modified Barium Swallow Study Comments: Patient was seated in cardiac chair beside bed, very chatty and verbal, and demonstrating some good insight and awareness re: current swallowing difficulties. He was highly cooperative with all aspects of today's evaluation. Pre-evaluation Dietary Consistencies: Regular Pre-evaluation Liquid Consistency: Thin Pre-evaluation Medication Administration: Whole with Liquid Medical History: Comments: Alcoholic cirrhosis, chronic indwelling urine catheter, orthostatic hypotension on midodrine, GERD, diabetes mellitus type 2 on insulin [facility] Fall Risk Assessment Score: Oral Motor Exam Facial Symmetry: Normal for Patient Oral Expression Ability: No Impairment Is patient able to manage secretions?: Yes Is patient able to produce volitional cough?: Yes Food and Liquid Trials: Oral Impairment: Lip Closure: 0=No labial escape Oral Impairment: Tongue Control During Bolus Hold: 0=Cohesive bolus between tongue to palatal seal Oral Impairment: Bolus Preparation/Mastication: 2=Disorganized chewing/mashing with solid pieces of bolus Oral Impairment: Bolus Transport/Lingual Motion: 1= Delayed initiation of tongue motion Oral Impairment: Oral Residue: 1=Trace residue lining oral structures Oral Impairment:Initiation of Pharyngeal Swallow: 3=Bolus head in pyriforms Pharyngeal Impairment: Soft Palate Elevation: 0=No bolus between soft palate (SP)/pharyngeal wall (PW) Pharyngeal Impairment: Laryngeal Elevation: 1=Partial thyroid cartilage/arytenoids to epiglottic petiole movement Pharyngeal Impairment: Anterior Hyoid Excursion: 1=Partial anterior movement Pharyngeal Impairment: Epiglottic Movement: 1=Partial inversion Pharyngeal Impairment: Laryngeal Vestibular Closure:: 1=Incomplete: narrow column air/contrast in laryngeal vestibule Pharyngeal Impairment: Pharyngeal Stripping Wave: 1=Present: diminished Pharyngeal Impairment: Pharyngeal Contraction: Did not test Pharyngeal Impairment: Pharyngoesophageal Segment Openin=Partial distention/partial duration: partial obstruction of flow Pharyngeal Impairment: Tongue Base (TB) Retraction: 1=Trace column of contrast/air between TB and posterior PW Pharyngeal Impairment: Pharyngeal Residue: 1=Trace residue within or on pharyngeal structures Pharyngeal Impairment: Esophageal Clearance Upright Position: Did not test Impressions and Recommendations Clinical Observations: [facility] ID: [id number] [facility] Results: Lip closure for intraoral bolus containment resulted in no labial escape. Tongue control during bolus hold maintained a cohesive bolus held between tongue to palate seal. Bolus preparation and mastication demonstrated disorganized chewing/mashing with solid pieces of the bolus unchewed. Bolus transport/lingual motion demonstrated delayed initiation of tongue motion. Oral residue was a trace, lining oral structures. Initiation of the pharyngeal swallow occurred when the bolus head was in the pyriform sinuses. Soft palate elevation resulted in no bolus between the soft palate and the pharyngeal wall. Laryngeal elevation was decreased, with partial superior movement of the thyroid cartilage/partial approximation of the arytenoids to the epiglottic petiole. Anterior hyoid excursion demonstrated partial anterior movement. Epiglottic movement resulted in partial inversion. Laryngeal vestibular closure was incomplete, with a narrow column of air/contrast noted within the laryngeal vestibule at the height of the swallow. Pharyngeal stripping wave was present, but diminished. Pharyngeal contraction was complete. Pharyngoesophageal segment opening demonstrated partial distension/partial duration, with partial obstruction of bolus flow. Tongue base retraction allowed a trace column of contrast or air between the retracted tongue base and the posterior pharyngeal wall. Pharyngeal residue was a trace within or on pharyngeal structures. Esophageal clearance in the upright position was complete, with only a coating of contrast, if any. Oral Impairment Score: 6 Pharyngeal Impairment Score: 6 Esophageal Impairment Score: 0 Laryngeal Penetration and Aspiration: Penetration was observed in today's study. [place]-thick Contrast entered the airway, remained above the vocal folds, and was ejected from the airway. Thin Contrast entered the airway, contacted the vocal folds, and was not ejected from the airway. SUMMARY: Pt was provided Thin and [place] Thick Liquids, Puree and Regular Solids. Penetration to the vocal folds was observed on consecutive sips of thin liquids. Penetration was reduced, but not eliminated with [place]-Thick Liquids, and with cued small sip of Thin Liquids. Mastication was slowed and disorganized due to limited dentition. Significant swallow trigger delay across all consistencies related to reduced sensation in the oropharynx. Liquid Intake Recommendation: Thin Liquid Intake Strategies: No Straws Dietary Recommendations: Regular Medication Administration: Crushed with Puree Please contact the pharmacy regarding appropriate crushable or liquid drug formulations that are available whenever modified delivery is recommended. Compensatory Strategies Recommended: Sitting Upright (90 deg) Liquids from Cup Small Bites and Sips Alternate Liquids/Solids Rate of Ingestion Change Oral Check Supervision during eating and or drinking: Intermittent Supervision Recommended Treatments: Compens. Strategy Educat. Recommendation for Speech Therapy: Inpatient Speech Therapy Text Comment: Recommend CONTINUE REGULAR SOLIDS and THIN LIQUIDS with increased supervision for aspiration precautions and cues to take small, singular sips and AVOID CONSECUTIVE SIPS. Frequency/Duration: Daily Date Range for Service Requested: Timeline to reassess: PRN Code Machine Operator Clinician/Clinical Fellow: No Supervisory Statement: N/A Speech Language Pathologist: Paul Sullivan M.A., CCC-MANAGER INTERNET
--- NOTE | 2023-05-29 14:31 | MHC.SL.SWA ---
Risk of Aspiration Due to: Medically Fragile Dysphasia Diet Status: Participated in MBSS on 05/28/23 with the following results: MBSImP Results: Lip closure for intraoral bolus containment resulted in no labial escape. Tongue control during bolus hold maintained a cohesive bolus held between tongue to palate seal. Bolus preparation and mastication demonstrated disorganized chewing/mashing with solid pieces of the bolus unchewed. Bolus transport/lingual motion demonstrated delayed initiation of tongue motion. Oral residue was a trace, lining oral structures. Initiation of the pharyngeal swallow occurred when the bolus head was in the pyriform sinuses. Soft palate elevation resulted in no bolus between the soft palate and the pharyngeal wall. Laryngeal elevation was decreased, with partial superior movement of the thyroid cartilage/partial approximation of the arytenoids to the epiglottic petiole. Anterior hyoid excursion demonstrated partial anterior movement. Epiglottic movement resulted in partial inversion. Laryngeal vestibular closure was incomplete, with a narrow column of air/contrast noted within the laryngeal vestibule at the height of the swallow. Pharyngeal stripping wave was present, but diminished. Pharyngeal contraction was complete. Pharyngoesophageal segment opening demonstrated partial distension/partial duration, with partial obstruction of bolus flow. Tongue base retraction allowed a trace column of contrast or air between the retracted tongue base and the posterior pharyngeal wall. Pharyngeal residue was a trace within or on pharyngeal structures. Esophageal clearance in the upright position was complete, with only a coating of contrast, if any. Oral Impairment Score: 6 Pharyngeal Impairment Score: 6 Esophageal Impairment Score: 0 Laryngeal Penetration and Aspiration: Penetration was observed in today's study. [place]-thick Contrast entered the airway, remained above the vocal folds, and was ejected from the airway. Thin Contrast entered the airway, contacted the vocal folds, and was not ejected from the airway. SUMMARY: Pt was provided Thin and [place] Thick Liquids, Puree and Regular Solids. Penetration to the vocal folds was observed on consecutive sips of thin liquids. Penetration was reduced, but not eliminated with [place]-Thick Liquids, and with cued small sip of Thin Liquids. Mastication was slowed and disorganized due to limited dentition. Significant swallow trigger delay across all consistencies related to reduced sensation in the oropharynx. Liquid Consistency and Strategies for Safe Swallow: Liquid Intake Recommendation: Thin Liquid Intake Strategies: No Straws Solid Food Consistency: Dietary Recommendations: Regular Oral Medication Intake: Whole with Puree Please contact the pharmacy regarding appropriate crushable or liquid drug formulations that are available whenever modified delivery is recommended. Compensatory Strategies and Precautions to be Taken for Safe Swallow: Sitting Upright (90 deg) No Straw Liquids from Cup Small Bites and Sips Alternate Liquids/Solids Rate of Ingestion Change Oral Check Avoid Specific Foods Supervision While Eating and Drinking for Safe Swallow: Intermittent Supervision Foods to Avoid: Swallowing Recommended Treatments: Compens. Strategy Educat. Recommendation for Speech: Inpatient Speech Therapy Comment: Recommend CONTINUE REGULAR SOLIDS and THIN LIQUIDS with increased supervision for aspiration precautions and cues to take small, singular sips and AVOID CONSECUTIVE SIPS. [place] Supervisor Clinican/Clinical Fellow: No Supervisory Statement: I have reviewed and agree with the student/clinical fellow's documentation: N/A Speech Language Pathologist: Zenaida Pappas M.A., CCC-FEED MANAGER
--- NOTE | 2023-05-29 15:02 | HO.PM.IMPN ---
Subjective Subjective Date of Service: 05/29/23 Interval History: No acute issues overnight. Mentation remains at baseline Review of Systems Denies chest pain Denies shortness of breath Denies nausea vomiting diarrhea Denies fever chills Physical Exam Vital Signs: Vital Signs: Last Vital Signs Temp 98 F 05/29/23 06:47 Pulse 72 05/29/23 06:47 Resp 16 05/29/23 06:47 BP 114/58 L 05/29/23 06:47 Pulse Ox 97 05/29/23 06:47 O2 Del Method Room Air 05/29/23 06:47 BMI result Body Mass Index 27.9 Const: Other: No acute issues. Mentation back to baseline Resp: Other: Clear to auscultation bilaterally no rales rhonchi or wheezes Cardio: Other: No S4; positive S1-S2; no S3 murmurs rubs or gallops GI: Other: Soft tender. Fluid wave improved post paracentesis Extrem: Other: No edema bilaterally Objective Data Active Medications Acetaminophen (Acetaminophen 325 Mg Tablet) 650 mg PO Q6H PRN PRN Reason: Pain, Mild (Pain Scale 1-3) Last Admin: 05/25/23 21:52 Dose: 650 mg Documented By: KARMA Bisacodyl (Bisacodyl 10 Mg Supp.Rect) 10 mg CA DAILY PRN PRN Reason: Constipation Dextrose (Dextrose 50 % 25 Gm/50 Ml Syringe) 25 gm IVPUSH Q15M PRN; Protocol PRN Reason: per Hypoglycemia Standing Ord. Enoxaparin Sodium (Enoxaparin Sodium 40 Mg/0.4 Ml Syringe) 40 mg SUBCUT Q24H [facility] Last Admin: 05/28/23 17:16 Dose: 40 mg Documented By: DONN Folic Acid (Folic Acid 1 Mg Tablet) 1 mg PO DAILY [facility] Last Admin: 05/29/23 08:11 Dose: 1 mg Documented By: MIKE Gabapentin (Gabapentin 100 Mg Capsule) 100 mg PO TID [facility] Last Admin: 05/29/23 14:23 Dose: 100 mg Documented By: MIKE Glucose (Glucose Gel 15 Gm Gel..Gram.) 15 gm PO Q15M PRN; Protocol PRN Reason: per Hypoglycemia Standing Ord. Insulin Human Lispro (Insulin Lispro 100 Unit/Ml 3 Ml Vial) 0 unit SUBCUT QIDACHS [facility]; Protocol Last Admin: 05/29/23 11:28 Dose: Not Given Documented By: MIKE Non-Admin Reason: No Insulin Coverage Lactulose (Lactulose 20 Gm/30 Ml Solution) 30 gm PO TID [facility] Last Admin: 05/29/23 14:26 Dose: Not Given Documented By: MIKE Non-Admin Reason: Patient Refused Lidocaine (Lidocaine 4 % Patch Adh..Patch) 1 patch TRANSDERMA DAILY [facility]; Protocol Last Admin: 05/29/23 08:12 Dose: 1 patch Documented By: MIKE Magnesium Hydroxide (Milk Of Magnesia 30 Ml Oral.Susp) 400 ml PO DAILY PRN PRN Reason: Constipation Melatonin (Melatonin 3 Mg Tablet) 3 mg PO BEDTIME [facility] Last Admin: 05/28/23 22:06 Dose: 3 mg Documented By: HERMILA Midodrine (Midodrine Hcl 10 Mg Tablet) 10 mg PO TID@0600,1200,1800 [facility] Last Admin: 05/29/23 11:55 Dose: 10 mg Documented By: MIKE Multivitamins/Vitamin C (Multivitamin Tablet) 1 tab PO DAILY [facility] Last Admin: 05/29/23 08:11 Dose: 1 tab Documented By: MIKE Naltrexone HCl (Naltrexone Hcl 50 Mg Tablet) 50 mg PO DAILY [facility] Last Admin: 05/29/23 08:11 Dose: 50 mg Documented By: MIKE Ondansetron HCl (Ondansetron Hcl 4 Mg/2 Ml Vial) 4 mg IVPUSH Q8H PRN PRN Reason: Nausea and Vomiting Last Admin: 05/20/23 18:09 Dose: 4 mg Documented By: HOWARD Rifaximin (Rifaximin 550 Mg Tablet) 550 mg PO BID [facility] Last Admin: 05/29/23 08:11 Dose: 550 mg Documented By: MIKE Sertraline HCl (Sertraline Hcl 50 Mg Tablet) 50 mg PO DAILY [facility] Last Admin: 05/29/23 08:11 Dose: 50 mg Documented By: MIKE Sodium Bicarbonate (Sodium Bicarbonate 650 Mg Tablet) 650 mg PO TID [facility] Last Admin: 05/29/23 14:23 Dose: 650 mg Documented By: MIKE Sodium Biphosphate/Sodium Phosphate (Sodium Phosphate,[place]-Dibasic 133 Ml Enema) 118 ml CA DAILY PRN PRN Reason: Constipation Sodium Chloride (0.9 % Sodium Chloride Flush 3 Ml Syringe) 3 ml IVFLUSH QSHIFT [facility] Last Admin: 05/29/23 08:11 Dose: 3 ml Documented By: MIKE Thiamine HCl (Thiamine Hcl 100 Mg Tablet) 100 mg PO DAILY [facility] Last Admin: 05/29/23 08:11 Dose: 100 mg Documented By: MIKE Labs 05/29/23 05:53 05/29/23 05:53 Labs: Laboratory Results - last 24 hr 05/28/23 05/28/23 05/29/23 16:18 20:30 05:53 MCV 87.3 MCH 29.8 MCHC 34.1 RDW 16.1 H Plt Count 149 L MPV 10.7 Immature Gran % (Auto) 0.3 Neut % (Auto) 54.6 Lymph % (Auto) 31.5 [place] % (Auto) 9.9 Eos % (Auto) 3.1 Baso % (Auto) 0.6 Lymph # (Auto) 2.0 [place] # (Auto) 0.6 Eos # (Auto) 0.2 Baso # (Auto) 0.0 Abs Immat Gran (auto) 0.02 Absolute Neuts (auto) 3.5 Absolute Nucleated RBC 0.000 Nucleated RBC % (auto) 0.0 Anion Gap 10 L Estim Creat Clear Calc 44.7 Estimated GFR 42 POC Glucose 148 H 144 H Fasting Glucose 158 H Calcium 9.3 D Total Bilirubin 2.3 H AST 24 ALT 9 Alkaline Phosphatase 54 Ammonia 15 Total Protein 5.6 L Albumin 3.6 05/29/23 05/29/23 06:47 11:00 MCV MCH MCHC RDW Plt Count MPV Immature Gran % (Auto) Neut % (Auto) Lymph % (Auto) [place] % (Auto) Eos % (Auto) Baso % (Auto) Lymph # (Auto) [place] # (Auto) Eos # (Auto) Baso # (Auto) Abs Immat Gran (auto) Absolute Neuts (auto) Absolute Nucleated RBC Nucleated RBC % (auto) Anion Gap Estim Creat Clear Calc Estimated GFR POC Glucose 194 H 90 Fasting Glucose Calcium Total Bilirubin AST ALT Alkaline Phosphatase Ammonia Total Protein Albumin Microbiology Microbiology Results: Microbiology 05/27/23 09:45 Gram Stain - Final Ascites Fluid Anaerobic Culture - Preliminary No growth to date. Body Fluid Culture - Final No growth. Assessment and Plan (1) Cirrhosis: Status: Acute (2) PENNY (acute kidney injury): Status: Acute Plan 67yo M [facility] Et[facility] cirrhosis, chronic indwelling urinary cathter, orthostatic hypotension, DM2, GERD sent in with decreased PO, N/V..recently treated for Proteus mirabilis bacteremia..admitted for PENNY. Noted to have increased ascites 1.Cirrhosis -5 L fluid drained -creatinine an ammonia both normal again this a.m. -pathology pending 2.PENNY - as above; responded well to IV albumin -follow renals/divalents 3.Hepatic encephalopathy -ammonia normal again this a.m. -mentation at baseline - rifaximin + lactulose -MBBS results noted. GI to review 4.DM2 with hypoglycemia -acceptable control off therapies - lispro correctional scale -adjust as indicated 5.Mood disorder - continue sertraline -ask psych input LMWH Full code In my clinical judgment, the patient requires continued inpatient hospitalization for the following reasons: PENNY, aspiration workup, ascites Quality Stroke Does the patient have a stroke diagnosis?: No VTE Prior VTE?: No VTE Risk Level:: Medical - moderate - high VTE Device Contraindication: Treatment Not Indicated VTE Drug Contraindication: N/A - Med Ordered
[2023-05-29 15:38] VITALS: BP 115/57; PULSE 64; RESP 16; TEMP 36.3; O2SAT 98
[2023-05-29 16:13] LABS: Glucose, Whole Blood 104 mg/dL (60-115)
[2023-05-29] MEDS: Enoxaparin Sodium 40 MG/0.4 ML SYRINGE SUBCUT (18:14)
[2023-05-29 19:58] VITALS: BP 141/65; PULSE 61; RESP 16; TEMP 36.5; O2SAT 96
[2023-05-29 20:52] LABS: Glucose, Whole Blood 115 mg/dL (60-115)
--- NOTE | 2023-05-29 21:14 | P.PNNP_ITS ---
Subjective Subjective Date of Service: 05/29/23 Interval history: No acute issues overnight. Mentation remains at baseline Physical Exam 2 Vital Signs: Vital Signs: Last Vital Signs Temp 97.7 F 05/29/23 19:58 Pulse 61 05/29/23 19:58 Resp 16 05/29/23 19:58 BP 141/65 H 05/29/23 19:58 Pulse Ox 96 05/29/23 19:58 O2 Del Method Room Air 05/29/23 19:58 BMI result Body Mass Index 27.9 Const: General: comfortable and no acute distress HEENT: Head: Yes normocephalic Mouth: Normal oral and palatal mucosa present Eyes: EOM: EOMs intact bilaterally Neck: Neck: Yes supple Resp: Auscultation: clear to auscultation bilaterally Cardio: Jugular venous distension: no JVD Rate: regular rate GI: Palpation (GI): Soft to palpation Auscultation: normal bowel sounds : General: Yes no CVA tenderness Back/Spine/Pelvis: Back: no CVA tenderness Skin: General skin exam: no rashes or lesions noted Neuro: General: moves all extremities Objective Data Labs 05/29/23 05:53 05/29/23 05:53 Labs: Laboratory Results - last 24 hr 05/29/23 05/29/23 05/29/23 05:53 06:47 11:00 WBC 6.4 RBC 2.99 L Hgb 8.9 L Hct 26.1 L MCV 87.3 MCH 29.8 MCHC 34.1 RDW 16.1 H Plt Count 149 L MPV 10.7 Immature Gran % (Auto) 0.3 Neut % (Auto) 54.6 Lymph % (Auto) 31.5 [place] % (Auto) 9.9 Eos % (Auto) 3.1 Baso % (Auto) 0.6 Lymph # (Auto) 2.0 [place] # (Auto) 0.6 Eos # (Auto) 0.2 Baso # (Auto) 0.0 Abs Immat Gran (auto) 0.02 Absolute Neuts (auto) 3.5 Absolute Nucleated RBC 0.000 Nucleated RBC % (auto) 0.0 Sodium 142 Potassium 3.4 Chloride 108 Carbon Dioxide 27 Anion Gap 10 L BUN 26 H Creatinine 1.64 H Estim Creat Clear Calc 44.7 Estimated GFR 42 POC Glucose 194 H 90 Fasting Glucose 158 H Calcium 9.3 D Total Bilirubin 2.3 H AST 24 ALT 9 Alkaline Phosphatase 54 Ammonia 15 Total Protein 5.6 L Albumin 3.6 05/29/23 05/29/23 16:07 20:47 WBC RBC Hgb Hct MCV MCH MCHC RDW Plt Count MPV Immature Gran % (Auto) Neut % (Auto) Lymph % (Auto) [place] % (Auto) Eos % (Auto) Baso % (Auto) Lymph # (Auto) [place] # (Auto) Eos # (Auto) Baso # (Auto) Abs Immat Gran (auto) Absolute Neuts (auto) Absolute Nucleated RBC Nucleated RBC % (auto) Sodium Potassium Chloride Carbon Dioxide Anion Gap BUN Creatinine Estim Creat Clear Calc Estimated GFR POC Glucose 104 115 Fasting Glucose Calcium Total Bilirubin AST ALT Alkaline Phosphatase Ammonia Total Protein Albumin Microbiology Microbiology Results: Microbiology 05/27/23 09:45 Ascites Fluid Gram Stain - Final 05/27/23 09:45 Ascites Fluid Anaerobic Culture - Preliminary No growth to date. 05/27/23 09:45 Ascites Fluid Body Fluid Culture - Final No growth. 05/21/23 10:00 Ascites Fluid Gram Stain - Final 05/21/23 10:00 Ascites Fluid Anaerobic Culture - Final NO GROWTH AFTER 5 DAYS 05/21/23 10:00 Ascites Fluid Body Fluid Culture - Final No growth after 2 days 05/20/23 18:32 Urine clean catch Urine Culture - Final Yesy glabrata Procedures Date of Service Date of Service: 05/29/23 Assessment & Plan Assessment and plan (1) PENNY (acute kidney injury): Status: Acute Plan PENNY superimposed on CKD 3 most likely had tubular injury. No obstruction based on CT scan; No reason to suspect GN and or AIN Serum creatinine improved and is close to baseline No indication for renal replacement.Continue with current supportive care Progress Note: Quality Stroke Does the patient have a stroke diagnosis?: No
[2023-05-30] MEDS: 0.9 % Sodium Chloride Flush 3 ML SYRINGE IVFLUSH ×2 (00:28→08:21)
[2023-05-30 03:33] VITALS: BP 95/49; PULSE 71; RESP 18; TEMP 37; O2SAT 100
--- NOTE | 2023-05-30 04:39 | PC.NURSE ---
Addendum entered by Mariaa Burns RN 05/30/23 04:41: Right leg posterior skin tear. (not left) Original Note: L. leg posterior skin tear
[2023-05-30] MEDS: Midodrine HCl 10 MG TABLET PO ×2 (05:40→11:50)
[2023-05-30 05:45] LABS: Basophils Absolute Auto 0.1 X10*3/uL (0.0-0.2); Basophils Percent Auto 0.9 % (0-2); Eosinophils Absolute Auto 0.2 X10*3/uL (0.0-0.4); Eosinophils Percent Auto 3.3 % (0-4); Hematocrit 25.9 % (42.0-52.0); Hemoglobin 8.9 g/dl (14.0-18.0); Imm Gran Abs Auto 0.01 X10*3/uL (0.00-0.03); Imm Gran Pct Auto 0.2 % (0.0-0.4); Lymphocytes Absolute Auto 2.3 X10*3/uL (1.2-4.9); Lymphocytes Percent Auto 39.8 % (20-40); MANUAL DIFF FLAG NO; Mean Corpuscular HGB Conc 34.4 g/dl (31.0-36.0); Mean Corpuscular Hemoglobin 30.2 pg (27.0-33.0); Mean Corpuscular Volume 87.8 fL (80.0-98.0); Mean Platelet Volume 9.8 fL (9.4-12.4); Monocytes Absolute Auto 0.4 X10*3/uL (0.1-1.2); Monocytes Percent Auto 7.3 % (2-11); Neutrophils Absolute Auto 2.8 x10*3/uL (2.0-8.3); Neutrophils Percent Auto 48.5 % (45-73); Platelet Count 141 X10*3/uL (160-400); Red Blood Count 2.95 X10*6/uL (4.60-5.80); Red Cell Distribution Width 15.9 % (11.0-16.0); White Blood Count 5.8 X10*3/uL (4.8-10.8)
[2023-05-30 05:54] LABS: Ammonia 19 umol/L (13-55)
[2023-05-30 06:02] LABS: Alanine Aminotransferase 11 U/L (0-40); Albumin Level 3.6 g/dL (3.5-5.0); Alkaline Phosphatase 58 U/L (39-117); Anion Gap 18 (12-20); Aspartate Amino Transferase 20 U/L (5-37); Blood Urea Nitrogen 30 mg/dL (9-16); Calcium 9.4 mg/dL (8.4-10.2); Carbon Dioxide 22 mmol/L (22-29); Chloride 109 mmol/L (96-108); Creatinine Clr Calc Pharmacy 55.9; Estimated Glomerular Filt Rate 54; Glucose Fasting 112 mg/dL (60-99); Potassium 3.8 mmol/L (3.3-5.1); Sodium 145 mmol/L (135-145); Total Protein 5.7 g/dL (6.5-8.0)
[2023-05-30 07:08] VITALS: BP 116/79; PULSE 74; RESP 18; TEMP 36.5; O2SAT 100
[2023-05-30 07:40] LABS: Glucose, Whole Blood 107 mg/dL (60-115)
[2023-05-30] MEDS: Lidocaine 4 % Patch ADH..PATCH 1 PATCH TRANSDERMA (08:22)
[2023-05-30] MEDS: Folic Acid 1 MG TABLET PO (08:24)
[2023-05-30] MEDS: Gabapentin 100 MG CAPSULE PO ×2 (08:24→14:42)
[2023-05-30] MEDS: rifAXIMin 550 MG TABLET PO (08:24)
[2023-05-30] MEDS: Sertraline HCL 50 MG TABLET PO (08:24)
[2023-05-30] MEDS: Naltrexone HCl 50 MG TABLET PO (08:24)
[2023-05-30] MEDS: Thiamine HCL 100 MG TABLET PO (08:25)
[2023-05-30] MEDS: Multivitamin TABLET 1 TAB PO (08:25)
[2023-05-30] MEDS: Sodium Bicarbonate 650 MG TABLET PO ×2 (08:25→14:42)
[2023-05-30 10:20] VITALS: BP 116/79; PULSE 74; O2SAT 100
--- NOTE | 2023-05-30 10:37 | MHC.CM.PN ---
PER MD ROUNDS, PT EXPECTED TO DC BACK TO SNF TODAY UPDATES SENT TO [facility] AWAITING A RESPONSE
[2023-05-30 11:41] LABS: Glucose, Whole Blood 127 mg/dL (60-115)
--- NOTE | 2023-05-30 12:25 | P.DS_ITS ---
DS: Providers Provider Date of Service: 05/30/23 Date of admission: 05/20/23 17:23 Date of discharge: 05/30/23 Primary care physician: Sharon Lopez MD Consults: 05/21/23 09:39 Consult to Nephrology Routine Consulting Provider: [facility] Reason for consultation: penny/ascites Has provider been notified: No 05/24/23 07:58 Consult to Gastroenterology Routine Consulting Provider: Belinda Suazo Reason for consultation: Globus sensation. Aspirated during barium swallow 05/24/23 11:25 Consult to Nephrology Routine Consulting Provider: [facility] Reason for consultation: Cr worsening. Will give albuminl. Pl;ease continue to follow 05/25/23 01:46 Consult to Case Management Routine Comment: Pt concern regarding HCP wants to speak to CM 05/27/23 04:55 Consult to Wound Care Routine Reason for consultation: Left forearm. Attending physician on discharge: Emerson Nielson Discharging clinician: Amada Wills DS: Diagnosis Discharge Diagnosis (1) PENNY (acute kidney injury): Status: Acute DS: Summary Hospital Course Hospital Course: From H&P on the day of admission 67-year-old gentleman [facility] with past medical history of alcoholic cirrhosis, chronic indwelling urine catheter, orthostatic hypotension on midodrine, GERD, diabetes mellitus type 2 on insulin, recently discharged from [facility] on May 12 after requiring treatment for sepsis due to Proteus mirabilis bacteremia due to UTI Patient treated with IV ceftriaxone and was discharged home on Ceftin, during that hospitalization patient also underwent paracentesis peritoneal fluid cytology was negative for malignant cells and cultures were negative, patient was sent to [place] ED today due to decreased by mouth intake, recurrent nausea and vomiting since his discharge, at present patient seems to be confused but as per this is his baseline, he denies pain, offers no acute complaints of fever chills, headache, dizziness, no shortness of breath, no chest pain, no abdominal discomfort , labs showed hemoglobin 11.1, hematocrit 34.5, WBC 8.5 stable platelets, blood sugar 114, magnesium 1.8, stable LFTs, ammonia 29, albumin of 2.4, creatinine 1.67, with a normal creatinine of 1.19 on May 12, CT abdomen and pelvis showed cirrhotic liver, massive abdominal and pelvic ascites, gallstones, when compared to study of 04/30/2023 there was no change noted, patient treated in the emergency room with IV fluids and albumin and repeat creatinine remains unchanged therefore patient is being admitted to [facility] due to acute kidney injury. PENNY on CKD3. Likely due to tubular injury. No obstruction on CT scan. Renal function improved with IV albumin and back near baseline. globus sensation barium swallow 05/22: 1. Delayed silent tracheal aspiration with thick barium. 2. Mild cricopharyngeal achalasia 3. Mildly disorganized esophageal peristalsis 4. Narrowing of the GE junction that likely represents achalasia. A short segment benign stricture cannot be excluded. 5. Incomplete exam. The termination was terminated once tracheal aspiration was identified. CXR after showed no evidence of aspiration pneumonia. He has had no hypoxia. Had MBSS 05/26. GI consulted, reviewed MBS results- no major issues and no need for EGD. seen by speech and recommended/tolerating regular diet. cirrhosis with ascites 5L ascites removed therapeutically 05/21/23. SAAG low inconsistent with portal HTN;repeat paracentesis diagnostically + therapeutically 05/27/23 5L removed. cell count/diff, Gm stain/culture, albumin, protein, cytology as per GI. Sodium restriction. Pathology, no malignancy identified. Gram stain no organisms seen, no growth to date. Albumin/protein pending GI aware, Dr Suazo will follow results - if high SAAG, GI will follow up and schedule outpatient appointment, otherwise patient should follow up with PCP. superficial thrombophlebitis IV removed from LUE and cool compresses placed. improved. hepatic encephalopathy rifaximin + lactulose. ammonia normalized, mentation at baseline. ammonia 19 on the day of discharge. DM with hypoglycemia. lantus placed on hold, blood sugars controlled with sliding scale coverage. N/V resolved thrombocytopenia. chronic likely r/t liver disease Time Attestation Total time managing care of this patient today: 40 mintues. Discharge Coordination Time (in mins): 40 Quality: Safe Use of Opioids Does Pt have an Active Cancer Diagnosis on the Problem List?: No Quality: Stroke Does the patient have a stroke diagnosis?: No Physical Exam Vital Signs: Vital Signs: Last Vital Signs Temp 97.7 F 05/30/23 07:08 Pulse 74 05/30/23 10:20 Resp 18 05/30/23 07:08 BP 116/79 05/30/23 10:20 Pulse Ox 100 05/30/23 10:20 O2 Del Method Room Air 05/30/23 07:08 BMI result Body Mass Index 27.9 Const: General: comfortable, no acute distress, alert and awake Nutritional Appearance: average body habitus Resp: Effort & Inspection: normal respiratory effort, able to speak in complete sentences, no respiratory distress and no use of accessory muscles Cardio: Rate: regular rate GI: Palpation (GI): Soft to palpation and nontender Neuro: General: moves all extremities DS: Data Data Completed and Pending Completed studies during hospitalization [Text1]: Pending at discharge 05/25/23 09:44 Cytology [PTH] Routine Labs on day of discharge: Laboratory Results - last 24 hr 05/29/23 05/29/23 05/30/23 16:07 20:47 05:39 WBC 5.8 RBC 2.95 L Hgb 8.9 L Hct 25.9 L MCV 87.8 MCH 30.2 MCHC 34.4 RDW 15.9 Plt Count 141 L MPV 9.8 Immature Gran % (Auto) 0.2 Neut % (Auto) 48.5 Lymph % (Auto) 39.8 [place] % (Auto) 7.3 Eos % (Auto) 3.3 Baso % (Auto) 0.9 Lymph # (Auto) 2.3 [place] # (Auto) 0.4 Eos # (Auto) 0.2 Baso # (Auto) 0.1 Abs Immat Gran (auto) 0.01 Absolute Neuts (auto) 2.8 Absolute Nucleated RBC 0.000 Nucleated RBC % (auto) 0.0 Sodium 145 Potassium 3.8 Chloride 109 H Carbon Dioxide 22 Anion Gap 18 BUN 30 H Creatinine 1.31 Estim Creat Clear Calc 55.9 Estimated GFR 54 POC Glucose 104 115 Fasting Glucose 112 H Calcium 9.4 Total Bilirubin 3.0 H AST 20 ALT 11 Alkaline Phosphatase 58 Ammonia 19 Total Protein 5.7 L Albumin 3.6 05/30/23 05/30/23 07:13 11:26 WBC RBC Hgb Hct MCV MCH MCHC RDW Plt Count MPV Immature Gran % (Auto) Neut % (Auto) Lymph % (Auto) [place] % (Auto) Eos % (Auto) Baso % (Auto) Lymph # (Auto) [place] # (Auto) Eos # (Auto) Baso # (Auto) Abs Immat Gran (auto) Absolute Neuts (auto) Absolute Nucleated RBC Nucleated RBC % (auto) Sodium Potassium Chloride Carbon Dioxide Anion Gap BUN Creatinine Estim Creat Clear Calc Estimated GFR POC Glucose 107 127 H Fasting Glucose Calcium Total Bilirubin AST ALT Alkaline Phosphatase Ammonia Total Protein Albumin Preliminary micro results at discharge 05/27/23 09:45 Anaerobic Culture - Preliminary Ascites Fluid No growth to date. Discharge Plan Discharge Anticipated Discharge Date/Time: 05/30/23 14:00 Patient Disposition: Xfer SNF Discharge Diagnosis: PENNY on CKD3 cirrhosis with ascites hepatic encephalopathy Referrals: [facility] [Outside] Sharon Morris MD [Primary Care Provider] - 1 Week Discharge Medications: New insulin lispro [Admelog U-100 Insulin lispro] 100 unit/mL Solution See Protocol subcut QIDACHS Qty: 10 0RF Protocol: Insulin Correction Scale Less than or equal to 110 ---- Give (units): 0 111 to 150 Give (units): 0 151 to 200 Give (units): 2 201 to 250 Give (units): 4 251 to 300 Give (units): 6 301 to 350 Give (units): 8 Greater than 350 Give (units): 10 Call MD if Blood Glucose > : 350 Continued multivitamin Tablet 1 tab PO DAILY acetaminophen 325 mg Tablet 650 mg PO DAILY PRN (Reason: Fever) naltrexone 50 mg Tablet 50 mg PO DAILY thiamine HCl (vitamin B1) 100 mg tablet 100 mg PO DAILY melatonin 3 mg Tablet 3 mg PO BEDTIME pantoprazole 40 mg tablet,delayed release (DR/EC) 40 mg PO DAILY@0600 folic acid 1 mg tablet 1 mg PO DAILY gabapentin 100 mg capsule 100 mg PO TID sertraline 50 mg tablet 50 mg PO DAILY midodrine 10 mg tablet 10 mg PO TID@0600,1200,1800 lactulose 10 gram/15 mL solution 45 ml PO TID Rx Instructions: HOLD FOR THREE OR MORE LOOSE STOOLS Xifaxan 550 mg tablet 550 mg PO BID sodium bicarbonate 650 mg Tablet 650 mg PO TID Qty: 90 0RF ondansetron HCl 4 mg tablet 4 mg PO Q4H PRN (Reason: nausea/vomting) magnesium hydroxide [Milk of Magnesia] 400 mg/5 mL Suspension 400 ml PO DAILY PRN (Reason: Constipation) Rx Instructions: for no BM in 3 days bisacodyl 10 mg Suppository 10 mg CO DAILY PRN (Reason: Constipation) Rx Instructions: if milk of magnesia not effective Fleet Enema 19-7 gram/118 mL Enema 118 ml CO DAILY PRN (Reason: Constipation) Rx Instructions: when ducolax not effective Discontinued insulin lispro [Humalog KwikPen Insulin] 100 unit/mL Insulin Pen 0 sliding scale dose SUBCUT TIDAC Protocol: Insulin Correction Scale Less than or equal to 110 ---- Give (units): 0 111 to 150 Give (units): 0 151 to 200 Give (units): 2 201 to 250 Give (units): 4 251 to 300 Give (units): 6 301 to 350 Give (units): 8 Greater than 350 Give (units): 10 Call MD if Blood Glucose > : 350 Rx Instructions: 150-199 = 2 units, 200-249 = 4 units, 250-299 = 6 units, 300-349 = 8 units, 350 - 399 = 10 units, greater than 399 = call MD insulin glargine [Lantus Solostar U-100 Insulin] 100 unit/mL (3 mL) Insulin Pen 30 unit SUBCUT BEDTIME cefuroxime axetil 500 mg tablet 500 mg PO BID 10 Days Qty: 20 0RF Rx Instructions: STOP DATE 05/23/2023 Discharge Orders: Discharge Order (Routine); Ordered 05/30/23 Ordered By: Amada Wills Activity on Discharge: As tolerated Stand Alone Forms: Patient Portal Discharge page Care Plan Goals: see below Health Concerns: Cirrhosis with ascites PENNY - resolved Hepatic encephalopathy. resolved. on lactulose and rifaximin diabetes with hypoglycemia chronic anemia thrombocytopenia, chronic Plan of Treatment: outpatient follow up with PCP stop lantus and scheduled premeal insulin. blood sugars have been normal. can use sliding scale coverage if needed ascites - outpatient follow up with GI continue regular diet with aspiration precautions, speech evaluation prn outpatient follow up with nephrology for renal function Assessment: see discharge summary Patient Instructions: Cirrhosis (GEN), Acute Kidney Injury (DC), Aspiration Pneumonia (GEN), Ascites (GEN), Aspiration Precautions (GEN), Barium Swallow (GEN)
--- NOTE | 2023-05-30 12:49 | PM.PNNEP ---
Subjective Subjective Date of Service: 05/30/23 Interval history: No acute issues overnight. Mentation remains at baseline Physical Exam Vital Signs: Vital Signs: Last Vital Signs Temp 97.7 F 05/30/23 07:08 Pulse 74 05/30/23 10:20 Resp 18 05/30/23 07:08 BP 116/79 05/30/23 10:20 Pulse Ox 100 05/30/23 10:20 O2 Del Method Room Air 05/30/23 07:08 BMI result Body Mass Index 27.9 Const: General: comfortable and no acute distress Orientation/consciousness: patient oriented x3 HEENT: Head: Yes normocephalic Mouth: Normal oral and palatal mucosa present Eyes: EOM: EOMs intact bilaterally Neck: Neck: Yes supple Resp: Auscultation: clear to auscultation bilaterally Cardio: Jugular venous distension: no JVD Rate: regular rate GI: Palpation (GI): Soft to palpation Auscultation: normal bowel sounds : General: Yes no CVA tenderness Back/Spine/Pelvis: Back: no CVA tenderness Skin: General skin exam: no rashes or lesions noted Neuro: General: patient oriented x3 and moves all extremities Extrem: General: Yes no pedal edema Objective Data Labs 05/30/23 05:39 05/30/23 05:39 Labs: Laboratory Results - last 24 hr 05/29/23 05/29/23 05/30/23 16:07 20:47 05:39 WBC 5.8 RBC 2.95 L Hgb 8.9 L Hct 25.9 L MCV 87.8 MCH 30.2 MCHC 34.4 RDW 15.9 Plt Count 141 L MPV 9.8 Immature Gran % (Auto) 0.2 Neut % (Auto) 48.5 Lymph % (Auto) 39.8 [place] % (Auto) 7.3 Eos % (Auto) 3.3 Baso % (Auto) 0.9 Lymph # (Auto) 2.3 [place] # (Auto) 0.4 Eos # (Auto) 0.2 Baso # (Auto) 0.1 Abs Immat Gran (auto) 0.01 Absolute Neuts (auto) 2.8 Absolute Nucleated RBC 0.000 Nucleated RBC % (auto) 0.0 Sodium 145 Potassium 3.8 Chloride 109 H Carbon Dioxide 22 Anion Gap 18 BUN 30 H Creatinine 1.31 Estim Creat Clear Calc 55.9 Estimated GFR 54 POC Glucose 104 115 Fasting Glucose 112 H Calcium 9.4 Total Bilirubin 3.0 H AST 20 ALT 11 Alkaline Phosphatase 58 Ammonia 19 Total Protein 5.7 L Albumin 3.6 05/30/23 05/30/23 07:13 11:26 WBC RBC Hgb Hct MCV MCH MCHC RDW Plt Count MPV Immature Gran % (Auto) Neut % (Auto) Lymph % (Auto) [place] % (Auto) Eos % (Auto) Baso % (Auto) Lymph # (Auto) [place] # (Auto) Eos # (Auto) Baso # (Auto) Abs Immat Gran (auto) Absolute Neuts (auto) Absolute Nucleated RBC Nucleated RBC % (auto) Sodium Potassium Chloride Carbon Dioxide Anion Gap BUN Creatinine Estim Creat Clear Calc Estimated GFR POC Glucose 107 127 H Fasting Glucose Calcium Total Bilirubin AST ALT Alkaline Phosphatase Ammonia Total Protein Albumin Microbiology Microbiology Results: Microbiology 05/27/23 09:45 Ascites Fluid Gram Stain - Final 05/27/23 09:45 Ascites Fluid Anaerobic Culture - Preliminary No growth to date. 05/27/23 09:45 Ascites Fluid Body Fluid Culture - Final No growth. 05/21/23 10:00 Ascites Fluid Gram Stain - Final 05/21/23 10:00 Ascites Fluid Anaerobic Culture - Final NO GROWTH AFTER 5 DAYS 05/21/23 10:00 Ascites Fluid Body Fluid Culture - Final No growth after 2 days 05/20/23 18:32 Urine clean catch Urine Culture - Final Yesy glabrata Procedures Date of Service Date of Service: 05/30/23 Assessment & Plan Assessment and plan (1) PENNY (acute kidney injury): Status: Acute Plan PENNY superimposed on CKD 3 most likely had tubular injury. No obstruction based on CT scan; No reason to suspect GN and or AIN Serum creatinine improved and is close to baseline Continue with current supportive care Shall arrange office follow up when D/Jamar Progress Note: Quality Stroke Does the patient have a stroke diagnosis?: No
[2023-05-30 15:05] VITALS: BP 121/57; PULSE 76; RESP 18; TEMP 36.3; O2SAT 100
[2023-05-30 16:09] LABS: Glucose, Whole Blood 149 mg/dL (60-115)
[2023-06-06 10:30] LABS: Albumin Peritoneal Fluid 1.9
[2023-06-06 10:31] LABS: Total Protein Peritoneal Fluid 2.8
== END 2023-05-30 17:36 | disposition skilled nursing facility (03) | DRG 434 ==
LOC: HO.ED 16:10 → HO.EDOVER 17:36 → HO.S3 18:06
PROVIDERS: Family Medicine; Hospitalist; Physician Assistant Surgical; Admitting Provider Hospitalist; Emergency Provider Emergency Medicine; PCP Internal Medicine; Visit Provider Physician Assistant Medical
DX: K70.31 Alcoholic cirrhosis of liver with ascites (principal); I80.8 Phlebitis and thrombophlebitis of other sites; K76.82 Hepatic encephalopathy; K22.2 Esophageal obstruction; K22.0 Achalasia of cardia; E11.649 Type 2 diabetes mellitus with hypoglycemia without coma; N18.30 Chronic kidney disease, stage 3 unspecified; E11.22 Type 2 diabetes mellitus with diabetic chronic kidney disease; I95.1 Orthostatic hypotension; K21.9 Gastro-esophageal reflux disease without esophagitis; F39 Unspecified mood [affective] disorder; Z96.0 Presence of urogenital implants; Z79.4 Long term (current) use of insulin; Z79.899 Other long term (current) drug therapy
CPT/HCPCS: 36415; 49083; 70450; 71046; 74176; 74221; 74230; 80048; 80053; 80076; 81001; 82042; 82140; 82248; 82565; 82570; 82947; 83690; 83735; 84133; 84156; 84157; 84300; 85025; 85027; 85610; 85730; 85999; 87070; 87073; 87086; 87088; 87205; 88112; 88305; 89051; 92526; 92610; 92611; 93005; 93306; 93971; 97110; 97116; 97162; 97530; 99285; C1758; J0696; J1650; J2405; J3475; J7120; P9047; Q9957

== ENCOUNTER 2023-05-20 17:23 | Outpatient (BNV) | payer MEDICARE, SELFPAY | END 2023-05-28 14:30 | PROVIDERS: Admitting Provider Hospitalist; Emergency Provider Emergency Medicine; PCP Internal Medicine; Visit Provider Physician Assistant Surgical | DX: R13.10 Dysphagia, unspecified (principal) | CPT/HCPCS: 74230 ==

== ENCOUNTER 2023-05-20 17:23 | Outpatient (BNV) | payer MEDICARE, SELFPAY | END 2023-05-23 13:05 | PROVIDERS: Admitting Provider Hospitalist; Emergency Provider Emergency Medicine; PCP Internal Medicine; Visit Provider Physician Assistant Surgical | DX: R09.A2 Foreign body sensation, throat (principal) | CPT/HCPCS: 74221 ==

== ENCOUNTER 2023-05-20 17:23 | Outpatient (BNV) | payer MEDICARE, SELFPAY | END 2023-05-21 09:30 | PROVIDERS: Admitting Provider Hospitalist; Emergency Provider Emergency Medicine; PCP Internal Medicine; Visit Provider Physician Assistant Surgical | DX: K70.31 Alcoholic cirrhosis of liver with ascites (principal) | CPT/HCPCS: 49083 ==

== ENCOUNTER 2023-05-20 17:23 | Outpatient (BNV) | payer MEDICARE, SELFPAY | END 2023-05-27 09:28 | PROVIDERS: Admitting Provider Hospitalist; Emergency Provider Emergency Medicine; PCP Internal Medicine; Visit Provider Physician Assistant Surgical | DX: K70.31 Alcoholic cirrhosis of liver with ascites (principal) | CPT/HCPCS: 49083 ==

== ENCOUNTER → 2023-05-20 17:23 | Outpatient (BNV) | payer MEDICARE, SELFPAY | PROVIDERS: Admitting Provider Hospitalist; Emergency Provider Emergency Medicine; PCP Internal Medicine; Visit Provider Internal Medicine | DX: R13.10 Dysphagia, unspecified (principal); K22.2 Esophageal obstruction; K76.9 Liver disease, unspecified; G93.40 Encephalopathy, unspecified; N17.9 Acute kidney failure, unspecified; K70.31 Alcoholic cirrhosis of liver with ascites | CPT/HCPCS: 99232 ==

== ENCOUNTER → 2023-05-20 17:23 | Outpatient (BNV) | payer MEDICARE, SELFPAY | PROVIDERS: Admitting Provider Hospitalist; Emergency Provider Emergency Medicine; PCP Internal Medicine; Visit Provider Internal Medicine Nephrology | DX: N17.9 Acute kidney failure, unspecified (principal); N18.30 Chronic kidney disease, stage 3 unspecified | CPT/HCPCS: 99223; 99232 ==

== ENCOUNTER → 2023-05-20 17:23 | Outpatient (BNV) | payer MEDICARE, SELFPAY | PROVIDERS: Admitting Provider Hospitalist; Emergency Provider Emergency Medicine; PCP Internal Medicine; Visit Provider Hospitalist | DX: N17.9 Acute kidney failure, unspecified (principal); N18.30 Chronic kidney disease, stage 3 unspecified | CPT/HCPCS: 99223; 99232; 99233; 99239 ==

== ENCOUNTER 2023-06-04 11:40 | Inpatient (IN) | payer MEDICARE, SELFPAY ==
--- NOTE | ~2023-06-04 | US_ITS ---
Ultrasound paracentesis History: Ascites. PENNY Risks and benefits and possible complications were discussed with the patient and consent form was signed. A safe pocket of ascitic fluid was identified using ultrasound guidance, and the overlying skin was marked. The abdomen prepped and draped in sterile fashion. 1% lidocaine was used as a local anesthetic. Using ultrasound guidance, a 5 fr catheter was placed into the ascitic pocket. 2.0 liters of yellow fluid was removed passively. The catheter was then removed. Fluid was sent for analysis. A few pest control service representative images from before and after the examination were obtained. The procedure was performed by Russ Ramírez PA-C and supervised by Dr. Flynn. US/US paracentesis abd w/image Impression: Ultrasound-guided paracentesis as described above. No immediate complications
--- NOTE | ~2023-06-04 | CT_ITS ---
EXAMINATION: CT HEAD WITHOUT CONTRAST CLINICAL INFORMATION: Fall. COMPARISON: CT head dated 05/07/2023. TECHNIQUE: Contiguous axial imaging was performed from the skull base to vertex without intravenous administration of contrast. This CT examination was performed using dose optimization techniques as appropriate, variously including the following: *Automated exposure control *Adjustment of mA and/or kV according to patient size (this includes techniques or standardized protocols for targeted exams where dose is matched to indication/reason for exam; i.e. extremities or head) *Use of iterative reconstruction technique DLP: 1114 mGy-cm FINDINGS: There is no intracranial hemorrhage. There is no evidence of acute/subacute cerebral or cerebellar infarction. There is no midline shift, mass effect, or extra-axial fluid collection. There is mild microvascular ischemic change. There are dense calcifications of the intradural vertebral arteries and cavernous internal carotid arteries. The orbits are symmetric and within normal limits. The calvarium is intact. The mastoid air cells are clear. Visualized paranasal sinuses are well aerated. CT/CT head/brain wo IV con IMPRESSION: No acute intracranial pathology. There is mild microvascular ischemic change.
[2023-06-04 11:56] VITALS: BP 88/51; BP 95/53; PULSE 71; PULSE 84; RESP 19; TEMP 36.2; O2SAT 100; O2SAT 97; BMI 34.2
--- NOTE | 2023-06-04 12:25 | ECG_ITS ---
Test Reason : ams Blood Pressure : / mmHG Vent. Rate : 075 BPM Atrial Rate : 075 BPM P-R Int : 236 ms QRS Dur : 130 ms QT Int : 500 ms P-R-T Axes : 068 -76 078 degrees QTc Int : 558 ms Sinus rhythm with 1st degree A-V block with Premature atrial complexes with Aberrant conduction Left axis deviation Right bundle branch block Inferior infarct (cited on or before 30-APR-2023) Anterolateral infarct (cited on or before 30-APR-2023) Abnormal ECG When compared with ECG of 30-APR-2023 17:45, Aberrant conduction is now Present Questionable change in initial forces of Lateral leads QT has lengthened Referred By: Generic ED Physician Electronically Signed By:Kvng Kennedy
--- NOTE | 2023-06-04 12:36 | ED_ITS ---
HPI - Altered Mental Status General Chief Complaint: General Medical Stated Complaint: INCREASED AMS Time Seen by Provider: 06/04/23 12:29 Source: patient, EMS and old records reviewed Mode of arrival: EMS Limitations: altered mental status History of Present Illness HPI narrative: 67 yo male with PMH of cirrhosis, hepatic encephalopathy, PENNY, ascites, GERD, bacteremia, anemia, UTI due to proteus, last paracentesis 05/20 with 5L removal he comes in with c/o increased confusion, he felt like something was crawling on him last night. He states he tried to get up and fell denies head strike. He notes he does feel confused. He has no pain. He states he thinks his abdomen looks normal denies dyspnea. MD complaint: confusion Onset (ago): day(s) (few days) Timing confirmed by: caregiver Severity: moderate Consistency of symptoms: waxing and waning Context: other (hepatic encephalopathy) Associated symptoms: other (increased ascites is possible, fall) Related Data Home Medications Medication Instructions Recorded Confirmed acetaminophen 325 mg tablet 650 mg PO DAILY PRN Fever 04/30/23 06/04/23 folic acid 1 mg tablet 1 mg PO DAILY 04/30/23 06/04/23 gabapentin 100 mg capsule 100 mg PO TID 04/30/23 06/04/23 lactulose 10 gram/15 mL oral 45 ml PO TID 04/30/23 06/04/23 solution melatonin 3 mg tablet 3 mg PO BEDTIME Sleep 04/30/23 06/04/23 midodrine 10 mg tablet 10 mg PO TID@0600,1200,1800 04/30/23 06/04/23 multivitamin 1 tab PO DAILY 04/30/23 06/04/23 naltrexone 50 mg tablet 50 mg PO DAILY 04/30/23 06/04/23 pantoprazole 40 mg tablet,delayed 40 mg PO DAILY@0600 04/30/23 06/04/23 release rifaximin 550 mg tablet (Xifaxan) 550 mg PO BID 04/30/23 06/04/23 sertraline 50 mg tablet 50 mg PO DAILY 04/30/23 06/04/23 thiamine HCl (vitamin B1) 100 mg 100 mg PO DAILY 04/30/23 06/04/23 tablet bisacodyl 10 mg rectal suppository 10 mg AL DAILY PRN Constipation 05/20/23 06/04/23 magnesium hydroxide 400 mg/5 mL 400 ml PO DAILY PRN Constipation 05/20/23 06/04/23 oral suspension (Milk of Magnesia) ondansetron HCl 4 mg tablet 4 mg PO Q4H PRN nausea/vomting 05/20/23 06/04/23 sodium phosphates 19 gram-7 118 ml AL DAILY PRN Constipation 05/20/23 06/04/23 gram/118 mL enema (Fleet Enema) Previous Rx's Medication Instructions Recorded sodium bicarbonate 650 mg tablet 650 mg PO TID #90 tabs 05/13/23 insulin lispro 100 unit/mL See Protocol subcut QIDACHS #10 mL 05/30/23 subcutaneous solution (Admelog U-100 Insulin lispro) Allergies Allergy/AdvReac Type Severity Reaction Status Date / Time lisinopril Allergy Angioedema Verified 04/30/23 17:28 scallops Allergy Angioedema Verified 04/30/23 17:28 Review of Systems 2 Review of Systems: ROS unable to be obtained due to altered mental status [facility] Past Medical History Attestation statement: The following information was validated with the patient. 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 Oriented X to person and place. No acute distress. Eyes: Pupils equal, round and reactive to light. scleral icterus ENT: Pharynx normal. Neck: Normal inspection. Neck supple. CVS: Normal heart rate and rhythm. Pulses normal. Respiratory: No respiratory distress. Breath sounds normal. Abdomen: large volume ascites non tender Skin: Skin warm and dry. jaundice skin color. Normal skin turgor. Extremities: No lower extremity edema. No calf ttp Neuro: Oriented X 2. No motor deficit. No sensory deficit. Course Course Course Narrative: baseline Cr 1.6 up to up to 2.2 IVF ordered will need admission again for PENNY paracentesis ordered for tomorrow signed out to Dr. Saavedra pending CT scan and UA along with admit Medications Administered Discontinued Medications Generic Name Dose Route Start Last Admin Trade Name Sanderq PRN Reason Stop Dose Admin Gabapentin 100 mg 06/04/23 14:23 06/04/23 14:41 Gabapentin 100 Mg Capsule PO 06/04/23 14:24 100 mg ONCE ONE Administration Albumin Human 100 mls @ 100 mls/hr 06/04/23 13:00 06/04/23 14:08 Kedbumin 25 % IV 06/04/23 14:59 100 mls/hr Q1H MIRIAM Administration Medical Decision Making Medical Decision Making [facility] Narrative: 67 yo male with PMH of cirrhosis, hepatic encephalopathy, PENNY, ascites, GERD, bacteremia, anemia, UTI due to proteus, last paracentesis 05/20 with 5L removal here with increased confusion, ascites, fall last night at this time labs, CT head for fall, kidney function, ammonia level suspect hepatic encephalopathy has no pain to suggest SBP no fevers reported. Differential Diagnosis Differential Diagnoses: The differential diagnosis associated with the presentation includes ascites, hepatic encephalopathy Admission/Observation Consideration of admission/observation: Escalation of care including admission/observation considered gvien penny will need admission Lab Data [facility] Lab Attestation statement: I reviewed the patient's lab results. 06/04/23 15:12 06/04/23 15:12 Labs: Lab Results 06/04/23 Range/Units 15:12 WBC 5.7 (4.8-10.8) X10*3/uL RBC 2.70 L (4.60-5.80) X10*6/uL Hgb 8.1 L (14.0-18.0) g/dl Hct 24.0 L (42.0-52.0) % MCV 88.9 (80.0-98.0) fL MCH 30.0 (27.0-33.0) pg MCHC 33.8 (31.0-36.0) g/dl RDW 16.7 H (11.0-16.0) % Plt Count 146 L (160-400) X10*3/uL MPV 11.0 (9.4-12.4) fL Immature Gran % (Auto) 0.2 (0.0-0.4) % Neut % (Auto) 52.9 (45-73) % Lymph % (Auto) 34.2 (20-40) % [place] % (Auto) 8.1 (2-11) % Eos % (Auto) 3.5 (0-4) % Baso % (Auto) 1.1 (0-2) % Lymph # (Auto) 1.9 (1.2-4.9) X10*3/uL [place] # (Auto) 0.5 (0.1-1.2) X10*3/uL Eos # (Auto) 0.2 (0.0-0.4) X10*3/uL Baso # (Auto) 0.1 (0.0-0.2) X10*3/uL Abs Immat Gran (auto) 0.01 (0.00-0.03) X10*3/uL Absolute Neuts (auto) 3.0 (2.0-8.3) x10*3/uL Absolute Nucleated RBC 0.000 (0.0-0.012) X10*3/uL Nucleated RBC % (auto) 0.0 (0.0-0.2) /100WBC Sodium 142 (135-145) mmol/L Potassium 4.8 D (3.3-5.1) mmol/L Chloride 107 (96-108) mmol/L Carbon Dioxide 22 (22-29) mmol/L Anion Gap 18 (12-20) BUN 39 H (9-16) mg/dL Creatinine 2.23 H (0.5-1.4) mg/dL Estim Creat Clear Calc 36.2 Estimated GFR 29 Random Glucose 123 H (60-115) mg/dL Calcium 9.7 (8.4-10.2) mg/dL Total Bilirubin 1.7 H (0.0-1.0) mg/dL Direct Bilirubin 0.6 H (0.0-0.5) mg/dL AST 26 (5-37) U/L ALT 14 (0-40) U/L Alkaline Phosphatase 82 (39-117) U/L Ammonia 19 (13-55) umol/L Total Protein 6.3 L (6.5-8.0) g/dL Albumin 3.8 (3.5-5.0) g/dL Independent Interpretation I performed an independent interpretation of an: EKG Interpretation: Rate: 75 Rhythm: NSR with 1st degree AVB [place]: left Normal P waves. 1st degree AVB RBBB ST T wave : diffusely flat t waves throughout no SUZY qTC: 558 prior studies: The study has been interpreted contemporaneously by me. . Independent Historian Clinical information obtained from an independent historian. History obtained from or confirmed by: EMS External Record Review External record reviewed: Inpatient record Discharge Plan Discharge Clinical Impression: Acute kidney injury, Encephalopathy Patient Disposition: Admitted As Inpatient Prescriptions: No Action multivitamin Tablet 1 tab PO DAILY acetaminophen 325 mg Tablet 650 mg PO DAILY PRN (Reason: Fever) naltrexone 50 mg Tablet 50 mg PO DAILY thiamine HCl (vitamin B1) 100 mg tablet 100 mg PO DAILY melatonin 3 mg Tablet 3 mg PO BEDTIME pantoprazole 40 mg tablet,delayed release (DR/EC) 40 mg PO DAILY@0600 folic acid 1 mg tablet 1 mg PO DAILY gabapentin 100 mg capsule 100 mg PO TID sertraline 50 mg tablet 50 mg PO DAILY midodrine 10 mg tablet 10 mg PO TID@0600,1200,1800 lactulose 10 gram/15 mL solution 45 ml PO TID Rx Instructions: HOLD FOR THREE OR MORE LOOSE STOOLS Xifaxan 550 mg tablet 550 mg PO BID sodium bicarbonate 650 mg Tablet 650 mg PO TID Qty: 90 0RF ondansetron HCl 4 mg tablet 4 mg PO Q4H PRN (Reason: nausea/vomting) magnesium hydroxide [Milk of Magnesia] 400 mg/5 mL Suspension 400 ml PO DAILY PRN (Reason: Constipation) Rx Instructions: for no BM in 3 days bisacodyl 10 mg Suppository 10 mg AL DAILY PRN (Reason: Constipation) Rx Instructions: if milk of magnesia not effective Fleet Enema 19-7 gram/118 mL Enema 118 ml AL DAILY PRN (Reason: Constipation) Rx Instructions: when ducolax not effective insulin lispro [Admelog U-100 Insulin lispro] 100 unit/mL Solution See Protocol subcut QIDACHS Qty: 10 0RF Protocol: Insulin Correction Scale Less than or equal to 110 ---- Give (units): 0 111 to 150 Give (units): 0 151 to 200 Give (units): 2 201 to 250 Give (units): 4 251 to 300 Give (units): 6 301 to 350 Give (units): 8 Greater than 350 Give (units): 10 Call MD if Blood Glucose > : 350
[2023-06-04] MEDS: Albumin Human 25 % 100 ML IV ×2 (14:08→18:16)
--- NOTE | 2023-06-04 14:30 | PHA.MEDREC ---
Pharmacy Consult ? Medication Reconciliation Pharmacy has completed the medication reconciliation. Patient from [facility] with med list. Miley Mcgee ,ArabellaD
[2023-06-04] MEDS: Gabapentin 100 MG CAPSULE PO ×2 (14:41→21:51)
[2023-06-04 15:17] LABS: MANUAL DIFF FLAG NO
[2023-06-04 15:24] LABS: Ammonia 19 umol/L (13-55)
[2023-06-04 15:32] LABS: Alanine Aminotransferase 14 U/L (0-40); Albumin Level 3.8 g/dL (3.5-5.0); Alkaline Phosphatase 82 U/L (39-117); Anion Gap 18 (12-20); Aspartate Amino Transferase 26 U/L (5-37); Bilirubin Direct 0.6 mg/dL (0.0-0.5); Bilirubin Total 1.7 mg/dL (0.0-1.0); Blood Urea Nitrogen 39 mg/dL (9-16); Calcium 9.7 mg/dL (8.4-10.2); Carbon Dioxide 22 mmol/L (22-29); Chloride 107 mmol/L (96-108); Creatinine Clr Calc Pharmacy 36.2; Estimated Glomerular Filt Rate 29; Glucose Random 123 mg/dL (60-115); Potassium 4.8 mmol/L (3.3-5.1); Sodium 142 mmol/L (135-145); Total Protein 6.3 g/dL (6.5-8.0)
[2023-06-04 15:44] LABS: Basophils Absolute Auto 0.1 X10*3/uL (0.0-0.2); Basophils Percent Auto 1.1 % (0-2); Eosinophils Absolute Auto 0.2 X10*3/uL (0.0-0.4); Eosinophils Percent Auto 3.5 % (0-4); Hemoglobin 8.1 g/dl (14.0-18.0); Imm Gran Abs Auto 0.01 X10*3/uL (0.00-0.03); Imm Gran Pct Auto 0.2 % (0.0-0.4); Lymphocytes Absolute Auto 1.9 X10*3/uL (1.2-4.9); Lymphocytes Percent Auto 34.2 % (20-40); Mean Corpuscular HGB Conc 33.8 g/dl (31.0-36.0); Mean Corpuscular Volume 88.9 fL (80.0-98.0); Monocytes Absolute Auto 0.5 X10*3/uL (0.1-1.2); Monocytes Percent Auto 8.1 % (2-11); Neutrophils Percent Auto 52.9 % (45-73); Platelet Count 146 X10*3/uL (160-400); Red Cell Distribution Width 16.7 % (11.0-16.0); White Blood Count 5.7 X10*3/uL (4.8-10.8)
[2023-06-04] MEDS: Magnesium Sulfate/H2O 2 GM/50 ML PIGGYBACK IV (16:06)
[2023-06-04] MEDS: 0.9 % Sodium Chloride 1,000 ML 75 ML IVCONT (16:09)
[2023-06-04 16:13] VITALS: BP 107/56; PULSE 76; RESP 22; TEMP 36.6; O2SAT 95
--- NOTE | 2023-06-04 17:07 | PC.NURSE ---
patient resting in bed quietly, has 22 in the left thumb, medicated per may, has 75ml/hr of NS running. patient has garcia in place, patient is alert and oriented to self and situation, patient easily gets off track and becomes confused in the moment. patient acknowledges that he seems more short term confused then normal. respirations equal and unlabored, skin dry and intact, VSS
[2023-06-04 19:14] VITALS: BP 101/59; PULSE 68; RESP 20; TEMP 36.6; O2SAT 100
[2023-06-04 19:48] LABS: Appearance Urine Turbid; Color Urine Dark Yellow; Glucose Urine UA Negative (Negative); Leukocyte Esterase Urine Large (3+) (Negative); Nitrite Urine Negative (Negative); PH 5.5 (5.0-9.0); Specific Gravity - Urine 1.015 (1.005-1.025); UMIC TRIGGER UACC YES; Urine Blood Large (3+) (Negative); Urine Ketones Negative (Negative); Urine Protein 100 (2+) mg/dL (Neg-Trace)
[2023-06-04 19:59] LABS: Bacteria Urine 3+ (None Seen); Calcium Oxalate Crystals Urine Present; Squamous Epithelial Cell Urine 0-2 /HPF (0-2); UACC Culture Trigger YES; WBC Urine >50 /HPF (0-5)
--- NOTE | 2023-06-04 20:40 | P.HPHOSP_ITS ---
History of Present Illness Date of Service: 06/04/23 <MICHAEL Martines - Last Filed: 06/04/23 21:07> Attending physician on admission: Shaun Spangler <MICHAEL Martines - Last Filed: 06/04/23 21:07> Chief Complaint: confusion, fall <MICHAEL Martines - Last Filed: 06/04/23 21:07> 67-year-old gentleman resident of [facility] with past medical history of alcoholic cirrhosis, chronic indwelling urine catheter, orthostatic hypotension on midodrine, GERD, diabetes mellitus type 2 on insulin, recently discharged from [facility] on May 11 due to PENNY and decompensated cirrhosis with ascites presented to the ED today for evaluation after staff reported fall and confusion. The patient is oriented x3, unsure why he is here. He states he fel earlier but denies headstrike or LOC. He states he does not feel confused. He tells me he has had increased social stresses and is interested in speaking with someone to help him with this. He is answering questions appropriately, asking what he can do to prevent the reaccumulation of his ascites. He denies any pain or dyspnea. NO fevers, chills, recent illness. No abd pain, n/v, urinary symptoms. Last paracentesis 05/20, draining 5L. On arrival, blood pressures soft, but otherwise WNL. No leukocytosis. Stable normocytic anemia with H/H 8.1/25.0%, platelets 146. Creatinine 2.23, baseline around 1.6. BUN 39. Electrolyte levels normal. Total bilirubin 1.7, direct bilirubin 0.6. AST/ALT within normal limits. Ammonia level 19. Urinalysis significant for 3+ leukocytes, negative nitrites, 3+ blood, positive urinary sediment, 3+ bacteria. Head CT negative for any acute intracranial abnormality but shows mild microvascular ischemic changes. EKG shows sinus rhythm with first-degree AV angie block, PACs and aberrant conduction with rate 75. No acute ST/T-wave abnormality. In ED, has been given 25% albumin x2, 2 g magnesium, gentle IV fluids, and 100 mg gabapentin. He will be admitted for further management of decompensated cirrhosis with ascites and acute kidney injury. <MICHAEL Martines - Last Filed: 06/04/23 21:07> Review of Systems 2 Review of Systems: General: No fevers, malaise, unintentional weight loss HEENT: No blurred vision, diplopia. No sore throat, nasal congestion, rhinorrhea, sinus pain, ear pain Cardiovascular: No chest pain, palpitations, or leg edema Respiratory: No shortness of breath, wheezing, cough GI: No abdominal pain, nausea, vomiting, diarrhea, constipation, melena, hematochezia : No dysuria, hematuria, increased urinary frequency, decreased urinary output MSK: No myalgia, back pain. 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 Orthostatic hypotension Chronic liver disease Type 2 diabetes mellitus <MICHAEL Martines - Last Filed: 06/04/23 21:07> Social History: Social History Household Members: Spouse Housing: House Alcohol intake: former Patient Tobacco Use Status: Former Tobacco user Smoked in Last 30 Days: No Use of substances other than those prescribed or required for medical reasons: Yes Substance Use Type: Marijuana Substance Use Frequency: Monthly Advance Directives: No Nutrition Risks: No Nutritional Risk service: No <MICHAEL Martines - Last Filed: 06/04/23 21:07> Meds Allergies/Adverse reactions: Allergies Allergy/AdvReac Type Severity Reaction Status Date / Time lisinopril Allergy Angioedema Verified 04/30/23 17:28 scallops Allergy Angioedema Verified 04/30/23 17:28 <MICHAEL Martines - Last Filed: 06/04/23 21:07> Active Medications: Current Medications Acetaminophen (Acetaminophen 325 Mg Tablet) 650 mg PO Q6H PRN PRN Reason: Pain, Mild (Pain Scale 1-3) Sodium Chloride (Ns) 1,000 mls @ 75 mls/hr IVCONT .[id number] [facility] Last Admin: 03/26/24 16:09 Dose: 75 mls/hr Ceftriaxone Sodium 1 gm/ (Sodium Chloride) 50 mls @ 100 mls/hr IV Q24H MIRIAM Ondansetron HCl (Ondansetron Hcl 4 Mg/2 Ml Vial) 4 mg IVPUSH Q8H PRN PRN Reason: Nausea and Vomiting Senna (Sennosides 8.6 Mg Tablet) 17.2 mg PO BEDTIME PRN PRN Reason: Constipation Sodium Chloride (0.9 % Sodium Chloride Flush 3 Ml Syringe) 3 ml IVFLUSH QSHIFT [facility] <MICHAEL Martines - Last Filed: 06/04/23 21:07> Home medications: Home Medications Medication Instructions Recorded Confirmed Last Taken Type acetaminophen 325 mg tablet 650 mg PO DAILY PRN Fever 04/30/23 06/04/23 Unknown History folic acid 1 mg tablet 1 mg PO DAILY 04/30/23 06/04/23 Unknown History gabapentin 100 mg capsule 100 mg PO TID 04/30/23 06/04/23 Unknown History lactulose 10 gram/15 mL oral 45 ml PO TID 04/30/23 06/04/23 Unknown History solution melatonin 3 mg tablet 3 mg PO BEDTIME Sleep 04/30/23 06/04/23 Unknown History midodrine 10 mg tablet 10 mg PO TID@0600,1200,1800 04/30/23 06/04/23 Unknown History multivitamin 1 tab PO DAILY 04/30/23 06/04/23 Unknown History naltrexone 50 mg tablet 50 mg PO DAILY 04/30/23 06/04/23 Unknown History pantoprazole 40 mg tablet,delayed 40 mg PO DAILY@0600 04/30/23 06/04/23 Unknown History release rifaximin 550 mg tablet (Xifaxan) 550 mg PO BID 04/30/23 06/04/23 Unknown History sertraline 50 mg tablet 50 mg PO DAILY 04/30/23 06/04/23 Unknown History thiamine HCl (vitamin B1) 100 mg 100 mg PO DAILY 04/30/23 06/04/23 Unknown History tablet bisacodyl 10 mg rectal suppository 10 mg [place] DAILY PRN Constipation 05/20/23 06/04/23 Unknown History magnesium hydroxide 400 mg/5 mL 400 ml PO DAILY PRN Constipation 05/20/23 06/04/23 Unknown History oral suspension (Milk of Magnesia) ondansetron HCl 4 mg tablet 4 mg PO Q4H PRN nausea/vomting 05/20/23 06/04/23 Unknown History sodium phosphates 19 gram-7 118 ml [place] DAILY PRN Constipation 05/20/23 06/04/23 Unknown History gram/118 mL enema (Fleet Enema) <MICHAEL Martines - Last Filed: 06/04/23 21:07> Physical Exam 2 Vital Signs and Narrative: Vital Signs: Last Vital Signs Temp 97.9 F 06/04/23 19:14 Pulse 68 06/04/23 19:14 Resp 20 06/04/23 19:14 BP 101/59 L 06/04/23 19:14 Pulse Ox 100 06/04/23 19:14 O2 Del Method Room Air 06/04/23 19:14 BMI result Body Mass Index 34.2 <MICHAEL Martines - Last Filed: 06/04/23 21:07> Constitutional - Awake and Alert, No apparent distress Eyes - PERRLA, EOMI Cardiovascular - S1S2, RRR, No edema Respiratory - Normal lung expansion, Normal respiratory effort, No respiratory distress, CTA bilaterally Gastrointestinal - softly distended with positive fluid wave, NT, +BS; No rebound or guarding Extremities - no calf tenderness bilaterally, no swelling Skin - Warm/Dry Neurological - Alert & oriented x3 Psychological - Appropriate affect <MICHAEL Martines - Last Filed: 06/04/23 21:07> Results Labs CBC and Chem 7: 06/04/23 15:12 06/04/23 15:12 <MICHAEL Martines - Last Filed: 06/04/23 21:07> Labs: Laboratory Results - last 24 hr 06/04/23 06/04/23 15:12 19:20 MCV 88.9 MCH 30.0 MCHC 33.8 RDW 16.7 H Plt Count 146 L MPV 11.0 Immature Gran % (Auto) 0.2 Neut % (Auto) 52.9 Lymph % (Auto) 34.2 [place] % (Auto) 8.1 Eos % (Auto) 3.5 Baso % (Auto) 1.1 Lymph # (Auto) 1.9 [place] # (Auto) 0.5 Eos # (Auto) 0.2 Baso # (Auto) 0.1 Abs Immat Gran (auto) 0.01 Absolute Neuts (auto) 3.0 Absolute Nucleated RBC 0.000 Nucleated RBC % (auto) 0.0 Anion Gap 18 Estim Creat Clear Calc 36.2 Estimated GFR 29 Random Glucose 123 H Calcium 9.7 Total Bilirubin 1.7 H Direct Bilirubin 0.6 H AST 26 ALT 14 Alkaline Phosphatase 82 Ammonia 19 Total Protein 6.3 L Albumin 3.8 Urine Color Dark Yellow Urine Appearance Turbid Urine pH 5.5 Ur Specific [place] 1.015 Urine Protein 100 (2+) H Urine Glucose (UA) Negative Urine Ketones Negative Urine Blood Large (3+) H Urine Nitrite Negative Ur Leukocyte Esterase Large (3+) H Urine RBC 11-20 H Urine WBC >50 H Ur Squamous Epith Cells 0-2 Calcium Oxalate Crystal Present Urine Bacteria 3+ Hyaline Casts 11-20 Urine Yeast Present <MICHAEL Martines - Last Filed: 06/04/23 21:07> Imaging Radiologist's Impressions: Impressions Head CT 06/04/23 15:22 IMPRESSION: No acute intracranial pathology. There is mild microvascular ischemic change. <MICHAEL Martines - Last Filed: 06/04/23 21:07> Assessment and Plan (1) Ascites due to alcoholic cirrhosis: Status: Acute <MICHAEL Martines - Last Filed: 06/04/23 21:07> (2) PENNY (acute kidney injury): Status: Acute <MICHAEL Martines - Last Filed: 06/04/23 21:07> (3) Urinary tract infection: Status: Acute <MICHAEL Martines - Last Filed: 06/04/23 21:07> 67-year-old gentleman resident [facility] with past medical history of alcoholic cirrhosis, chronic indwelling urine catheter, orthostatic hypotension on midodrine, GERD, diabetes mellitus type 2 on insulin, recently discharged from [facility] on May 11 due to PENNY and decompensated cirrhosis with ascites admitted for management of decompensated hepatic cirrhosis with ascites and acute kidney injury #Acute kidney injury -likely hepatorenal due to ascites reaccumulation -Hold on further IVF -sodium restrictions -therapeutic paracentesis am -follow renal function/lytes #Decompensated hepatic cirrhosis with ascites -therapeutic paracentesis am. NPO after midnight -sodium restrictions -given albumin x2 in ed -unlikely to tolerate diuretics at this time due to soft blood pressures. GI consult for medication optimization # acute Gordon catheter associated UTI -chronic indwelling Gordon catheter -IV ceftriaxone (initiated 06/03) -follow CBC, cultures #Chronic hepatic encephalopathy -ammonia 19, continue lactulose #Orhtostatic hypotension -2/2 above -continue midodrine # insulin-dependent type 2 diabetes -POC glucose, diabetic diet -Humalog on sliding scale # BPH with chronic obstructive uropathy -continue Gordon catheter # GERD -PPI DVT prophylaxis- scps, conside parental ac post procedure full code pt requires inpt stay at least 2 midnights for managemnet of penny due to decompensated cirrhosis requiring therapeutic paracentesis, close monitoring of renal function and electrolyte levels as well as expert consultation <MICHAEL Martines - Last Filed: 06/04/23 21:07> 67-year-old gentleman resident of [facility] with past medical history of alcoholic cirrhosis, chronic indwelling urine catheter, orthostatic hypotension on midodrine, GERD, diabetes mellitus type 2 on insulin, recently discharged from [facility] on May 11 due to PENNY and decompensated cirrhosis with ascites admitted for management of decompensated hepatic cirrhosis with ascites and acute kidney injury #Acute kidney injury -given iv fluids, monitor cr -therapeutic paracentesis am -follow renal function/lytes #Decompensated hepatic cirrhosis with ascites -therapeutic paracentesis am. NPO after midnight -sodium restrictions -given albumin x2 in ed -unlikely to tolerate diuretics at this time due to soft blood pressures. GI consult for medication optimization # acute Gordon catheter associated UTI -chronic indwelling Gordon catheter -IV ceftriaxone (initiated 06/03) -follow CBC, cultures #Chronic hepatic encephalopathy -ammonia 19, continue lactulose #Orhtostatic hypotension -2/2 above -continue midodrine # insulin-dependent type 2 diabetes -POC glucose, diabetic diet -Humalog on sliding scale # BPH with chronic obstructive uropathy -continue Gordon catheter # GERD -PPI DVT prophylaxis- scps, conside parental ac post procedure full code pt requires inpt stay at least 2 midnights for managemnet of penny due to decompensated cirrhosis requiring therapeutic paracentesis, close monitoring of renal function and electrolyte levels as well as expert consultation <Shaun Spangler MD - Last Filed: 06/04/23 21:36> Quality Stroke Does the patient have a stroke diagnosis?: No <MICHAEL Martines - Last Filed: 06/04/23 21:07> VTE Prior VTE?: No <MICHAEL Martines - Last Filed: 06/04/23 21:07> VTE Risk Level:: Medical - moderate - high <MICHAEL Martines - Last Filed: 06/04/23 21:07> VTE Device Contraindication: Treatment Not Indicated <MICHAEL Martines - Last Filed: 06/04/23 21:07> VTE Drug Contraindication: N/A - Med Ordered <MICHAEL Martines - Last Filed: 06/04/23 21:07>
--- NOTE | 2023-06-04 20:40 | PC.NURSE ---
This RN assumed care of patient at 1900, patient resting on stretcher comfortably, offering no complaints to this RN. Pt is calm and cooperative, alert and oriented x4, skin pwd. Pt has indwelling garcia catheter that is draining cloudy yellow strong urine. Pt abdomen is firm and distended, no pain upon palpation at this time. Pt has NS running at 100mls/hr through the 22g IV in L thumb. Pt aware of plan of care for inpatient admission
[2023-06-04 21:14] LABS: Glucose, Whole Blood 111 mg/dL (60-115)
[2023-06-04 21:31] LABS: INTERNATIONAL NORM RATIO 1.3 (0.9-1.1); Prothrombin Time 15.7 SEC (11.1-13.3)
[2023-06-04 21:33] LABS: Partial Thromboplastin Time 33.8 SEC (26.0-36.8)
[2023-06-04] MEDS: cefTRIAXone sodium 1 GM in 0.9 % Sodium Chloride 50 ML IV (21:46)
[2023-06-04] MEDS: Melatonin 3 MG TABLET PO (21:51)
[2023-06-04] MEDS: Lactulose 20 GM/30 ML SOLUTION 30 GM PO (21:51)
[2023-06-04] MEDS: Sodium Bicarbonate 650 MG TABLET PO (21:51)
[2023-06-04 22:12] VITALS: BP 117/50; PULSE 77; RESP 15; TEMP 36.7; O2SAT 96
[2023-06-04] MEDS: rifAXIMin 550 MG TABLET PO (22:16)
--- NOTE | 2023-06-04 22:38 | PC.NURSE ---
medicated per MAR, able to take all medications whole without issue
[2023-06-05] VITALS (7 sets, daily range): BP systolic 101–119; BP diastolic 53–63; PULSE 61–72; RESP 13–18; TEMP 36.3–36.9; O2SAT 95–100
[2023-06-05] MEDS: 0.9 % Sodium Chloride Flush 3 ML SYRINGE IVFLUSH ×2 (02:30→17:30)
[2023-06-05] MEDS: Midodrine HCl 10 MG TABLET PO ×3 (06:31→17:31)
[2023-06-05] MEDS: Omeprazole 20 MG CAPSULE.DR PO (06:31)
--- NOTE | 2023-06-05 07:09 | PC.NURSE ---
Report given to oncoming RENARD Forbes
[2023-06-05 07:25] LABS: Glucose, Whole Blood 109 mg/dL (60-115)
[2023-06-05] MEDS: Lidocaine HCl 1 % MPF 5 ML VIAL SUBCUT (11:15)
[2023-06-05 11:32] LABS: Glucose, Whole Blood 106 mg/dL (60-115)
[2023-06-05 11:42] LABS: MN% 93.1 %; PMN% 6.9 %; WBC Peritoneal Fluid 0.092 X10*3/uL
--- NOTE | 2023-06-05 11:42 | HO.PM.IMPN ---
Subjective Subjective Date of Service: 06/05/23 Review of Systems Follow up ascites Physical Exam Vital Signs: Vital Signs: Last Vital Signs Temp 98.4 F 06/05/23 11:32 Pulse 62 06/05/23 11:32 Resp 18 06/05/23 11:32 BP 107/53 L 06/05/23 11:32 Pulse Ox 97 06/05/23 11:32 O2 Del Method Room Air 06/05/23 11:32 BMI result Body Mass Index 34.2 Objective Data Active Medications Acetaminophen (Acetaminophen 325 Mg Tablet) 650 mg PO DAILY PRN PRN Reason: Fever Bisacodyl (Bisacodyl 10 Mg Supp.Rect) 10 mg [place] DAILY PRN PRN Reason: Constipation Dextrose (Dextrose 50 % 25 Gm/50 Ml Syringe) 25 gm IVPUSH Q15M PRN; Protocol PRN Reason: per Hypoglycemia Standing Ord. Folic Acid (Folic Acid 1 Mg Tablet) 1 mg PO DAILY [facility] Last Admin: 06/05/23 08:37 Dose: Not Given Documented By: RICHARDSON Non-Admin Reason: NPO Gabapentin (Gabapentin 100 Mg Capsule) 100 mg PO TID [facility] Last Admin: 06/05/23 08:37 Dose: Not Given Documented By: RICHARDSON Non-Admin Reason: NPO Glucose (Glucose Gel 15 Gm Gel..Gram.) 15 gm PO Q15M PRN; Protocol PRN Reason: per Hypoglycemia Standing Ord. Ceftriaxone Sodium 1 gm/ (Sodium Chloride) 50 mls @ 100 mls/hr IV Q24H [facility] Last Infusion: 06/04/23 22:36 Dose: Infused Documented By: ELIESER Insulin Human Lispro (Insulin Lispro 100 Unit/Ml 3 Ml Vial) 0 unit SUBCUT QIDACHS [facility]; Protocol Last Admin: 06/05/23 11:29 Dose: Not Given Documented By: RICHARDSON Non-Admin Reason: No Insulin Coverage Lactulose (Lactulose 20 Gm/30 Ml Solution) 30 gm PO TID [facility] Last Admin: 06/05/23 08:37 Dose: Not Given Documented By: RICHARDSON Non-Admin Reason: NPO Magnesium Hydroxide (Milk Of Magnesia 30 Ml Oral.Susp) 400 ml PO DAILY PRN PRN Reason: Constipation Melatonin (Melatonin 3 Mg Tablet) 3 mg PO BEDTIME [facility] Last Admin: 06/04/23 21:51 Dose: 3 mg Documented By: ELIESER Midodrine (Midodrine Hcl 10 Mg Tablet) 10 mg PO TID@0600,1200,1800 [facility] Last Admin: 06/05/23 06:31 Dose: 10 mg Documented By: FAUSTINO Multivitamins/Vitamin C (Multivitamin Tablet) 1 tab PO DAILY [facility] Last Admin: 06/05/23 08:37 Dose: Not Given Documented By: RICHARDSON Non-Admin Reason: NPO Naltrexone HCl (Naltrexone Hcl 50 Mg Tablet) 50 mg PO DAILY [facility] Last Admin: 06/05/23 08:37 Dose: Not Given Documented By: RICHARDSON Non-Admin Reason: NPO Omeprazole (Omeprazole 20 Mg Capsule.Dr) 20 mg PO DAILY@0600 [facility] Last Admin: 06/05/23 06:31 Dose: 20 mg Documented By: FAUSTINO Ondansetron HCl (Ondansetron Hcl 4 Mg/2 Ml Vial) 4 mg IVPUSH Q8H PRN PRN Reason: Nausea and Vomiting Rifaximin (Rifaximin 550 Mg Tablet) 550 mg PO BID [facility] Last Admin: 06/05/23 08:37 Dose: Not Given Documented By: RICHARDSON Non-Admin Reason: NPO Senna (Sennosides 8.6 Mg Tablet) 17.2 mg PO BEDTIME PRN PRN Reason: Constipation Sertraline HCl (Sertraline Hcl 50 Mg Tablet) 50 mg PO DAILY [facility] Last Admin: 06/05/23 08:37 Dose: Not Given Documented By: RICHARDSON Non-Admin Reason: NPO Sodium Bicarbonate (Sodium Bicarbonate 650 Mg Tablet) 650 mg PO TID [facility] Last Admin: 06/05/23 08:37 Dose: Not Given Documented By: RICHARDSON Non-Admin Reason: NPO Sodium Biphosphate/Sodium Phosphate (Sodium Phosphate,[place]-Dibasic 133 Ml Enema) 118 ml [place] DAILY PRN PRN Reason: Constipation Sodium Chloride (0.9 % Sodium Chloride Flush 3 Ml Syringe) 3 ml IVFLUSH QSHIFT [facility] Last Admin: 06/05/23 08:36 Dose: Not Given Documented By: RICHARDSON Non-Admin Reason: Previously Administered Thiamine HCl (Thiamine Hcl 100 Mg Tablet) 100 mg PO DAILY [facility] Last Admin: 06/05/23 08:37 Dose: Not Given Documented By: RICHARDSON Non-Admin Reason: NPO Labs 06/04/23 15:12 06/04/23 15:12 Labs: Laboratory Results - last 24 hr 06/04/23 06/04/23 06/04/23 15:12 19:20 21:09 MCV 88.9 MCH 30.0 MCHC 33.8 RDW 16.7 H Plt Count 146 L MPV 11.0 Immature Gran % (Auto) 0.2 Neut % (Auto) 52.9 Lymph % (Auto) 34.2 [place] % (Auto) 8.1 Eos % (Auto) 3.5 Baso % (Auto) 1.1 Lymph # (Auto) 1.9 [place] # (Auto) 0.5 Eos # (Auto) 0.2 Baso # (Auto) 0.1 Abs Immat Gran (auto) 0.01 Absolute Neuts (auto) 3.0 Absolute Nucleated RBC 0.000 Nucleated RBC % (auto) 0.0 PT 15.7 H INR 1.3 H APTT 33.8 Anion Gap 18 Estim Creat Clear Calc 36.2 Estimated GFR 29 POC Glucose Random Glucose 123 H Calcium 9.7 Total Bilirubin 1.7 H Direct Bilirubin 0.6 H AST 26 ALT 14 Alkaline Phosphatase 82 Ammonia 19 Total Protein 6.3 L Albumin 3.8 Urine Color Dark Yellow Urine Appearance Turbid Urine pH 5.5 Ur Specific [place] 1.015 Urine Protein 100 (2+) H Urine Glucose (UA) Negative Urine Ketones Negative Urine Blood Large (3+) H Urine Nitrite Negative Ur Leukocyte Esterase Large (3+) H Urine RBC 11-20 H Urine WBC >50 H Ur Squamous Epith Cells 0-2 Calcium Oxalate Crystal Present Urine Bacteria 3+ Hyaline Casts 11-20 Urine Yeast Present 06/04/23 06/05/23 06/05/23 21:11 07:19 11:28 MCV MCH MCHC RDW Plt Count MPV Immature Gran % (Auto) Neut % (Auto) Lymph % (Auto) [place] % (Auto) Eos % (Auto) Baso % (Auto) Lymph # (Auto) [place] # (Auto) Eos # (Auto) Baso # (Auto) Abs Immat Gran (auto) Absolute Neuts (auto) Absolute Nucleated RBC Nucleated RBC % (auto) PT INR APTT Anion Gap Estim Creat Clear Calc Estimated GFR POC Glucose 111 109 106 Random Glucose Calcium Total Bilirubin Direct Bilirubin AST ALT Alkaline Phosphatase Ammonia Total Protein Albumin Urine Color Urine Appearance Urine pH Ur Specific [place] Urine Protein Urine Glucose (UA) Urine Ketones Urine Blood Urine Nitrite Ur Leukocyte Esterase Urine RBC Urine WBC Ur Squamous Epith Cells Calcium Oxalate Crystal Urine Bacteria Hyaline Casts Urine Yeast Microbiology Microbiology Results: Microbiology 06/04/23 20:02 Urine Culture - Preliminary Urine clean catch No growth to date. Assessment and Plan (1) Ascites due to alcoholic cirrhosis: Status: Acute Plan 67-year-old gentleman resident of [facility] with past medical history of alcoholic cirrhosis, chronic indwelling urine catheter, orthostatic hypotension on midodrine, GERD, diabetes mellitus type 2 on insulin, recently discharged from [facility] on May 11 due to PENNY and decompensated cirrhosis with ascites admitted for management of decompensated hepatic cirrhosis with ascites and acute kidney injury Acute kidney injury likely hepatorenal due to ascites reaccumulation sodium restrictions s/p therapeutic and diagnostic paracentesis today follow renal function/lytes Decompensated hepatic cirrhosis with ascites therapeutic and diagnostic paracentesis today sodium restrictions given albumin x2 in ed unlikely to tolerate diuretics at this time due to soft blood pressures. GI consult for medication optimization acute Gordon catheter associated UTI chronic indwelling Gordon catheter IV ceftriaxone (initiated 06/03) follow CBC, cultures Chronic hepatic encephalopathy normal ammonia continue lactulose Orhtostatic hypotension 2/2 above continue midodrine insulin-dependent type 2 diabetes diabetic diet ss BPH with chronic obstructive uropathy continue Gordon catheter GERD PPI DVT prophylaxis- scps, conside parental ac post procedure Attending Dr. Nielson full code continue hospital stay for management of penny due to decompensated cirrhosis requiring therapeutic paracentesis, close monitoring of renal function and electrolyte levels as well as expert consultation Quality Stroke Does the patient have a stroke diagnosis?: No VTE Prior VTE?: No VTE Risk Level:: Medical - moderate - high VTE Device Contraindication: Treatment Not Indicated VTE Drug Contraindication: N/A - Med Ordered
[2023-06-05 12:01] LABS: RBC Peritoneal Fluid < 0.002 X10*6/uL
[2023-06-05 12:31] LABS: Lymphocyte Peritoneal Fl 44 %; Monocytes Peritoneal Fl 8 %; Neutrophils Peritoneal Fluid 5 %
[2023-06-05 12:32] LABS: BF Shift QC OK YES; Man Diluent Bkgrd OK YES; Other Peritioneal Fl 43 %
[2023-06-05] MEDS: Gabapentin 100 MG CAPSULE PO ×2 (13:30→20:43)
[2023-06-05] MEDS: Sodium Bicarbonate 650 MG TABLET PO ×2 (13:30→20:43)
[2023-06-05] MEDS: Lactulose 20 GM/30 ML SOLUTION 30 GM PO ×2 (13:32→20:43)
[2023-06-05 16:38] LABS: Glucose, Whole Blood 148 mg/dL (60-115)
[2023-06-05 19:38] LABS: Glucose, Whole Blood 204 mg/dL (60-115)
[2023-06-05] MEDS: cefTRIAXone sodium 1 GM in 0.9 % Sodium Chloride 50 ML IV (20:40)
[2023-06-05] MEDS: Insulin Lispro 100 UNIT/ML 3 ML VIAL SUBCUT (20:42)
[2023-06-05] MEDS: Melatonin 3 MG TABLET PO (20:43)
[2023-06-05] MEDS: rifAXIMin 550 MG TABLET PO (20:43)
[2023-06-06] VITALS: BP 104/54; PULSE 67; RESP 16; TEMP 36.7; O2SAT 100
[2023-06-06] MEDS: 0.9 % Sodium Chloride Flush 3 ML SYRINGE IVFLUSH ×4 (00:13→20:58)
[2023-06-06 04:00] VITALS: BP 102/62; PULSE 76; RESP 16; TEMP 36.1; O2SAT 96
[2023-06-06] MEDS: Midodrine HCl 10 MG TABLET PO ×3 (05:59→16:55)
[2023-06-06] MEDS: Omeprazole 20 MG CAPSULE.DR PO (06:00)
--- NOTE | 2023-06-06 07:00 | CA_ITS ---
Transthoracic Echocardiogram Patient (Last, First, Middle): Andres Torres F Gender: Male Date of : 1955 Age: 67 Procedure Date: 06/06/2023 Procedure Type: Transthoracic Echocardiogram Location: S3E Height: 172.72 cm Weight: 102.06 kg BSA: 2.15 m2 Heart Rate: 68 bpm BP: 103 / 51 mmHg Gun Welder: SB Referring MD: Amada RODRIGUEZ Symptoms: fluid overload Study Quality: Technically Difficult ECG Rhythm: Sinus Conclusions: - Mildly increased left ventricular cavity size. There is normal left ventricular wall thickness. The left ventricular systolic function is moderately decreased. The visually estimated ejection fraction is between 30-35%. - Normal right ventricular cavity size. There is low normal right ventricular systolic function. - There is a small pericardial effusion. Findings consistent with moderate ascites. Findings Procedure Information Contrast agent, definity, is being given per protocol without apparent complications. The quality of the study was technically difficult. The study quality is limited by patients body habitus. Left Ventricle Mildly increased left ventricular cavity size. There is normal left ventricular wall thickness. The left ventricular systolic function is moderately decreased. The visually estimated ejection fraction is between 30 35%. There is moderate global hypokinesis. Diastolic function is indeterminate on the basis of available data. Right Ventricle Normal right ventricular cavity size. There is low normal right ventricular systolic function. Atria The left atrium is normal in size. The right atrium is normal in size. Aortic Valve Normal aortic valve structure and function. There is mild calcification of the aortic valve. There is no aortic valve stenosis. There is no aortic valve regurgitation. Mitral Valve Normal mitral valve structure and function. There is no mitral valve regurgitation. There is no mitral valve stenosis. Pulmonic Valve Normal pulmonic valve structure and function. Tricuspid Valve Likely normal tricuspid valve structure and function. Normal right atrial pressure. There is no evidence of pulmonary hypertension. Great Vessels All visible segments of the aorta are normal in size. The visualized portions of the pulmonary artery and branches are normal. Venous The inferior vena cava is normal in size and collapses greater than 50% with inspiration. Pericardium/Pleural There is a small pericardial effusion. Findings consistent with moderate ascites. Prior Study Comparison No prior study available for comparison. Measurements 2D Linear Measurements IVSd: 0.79 0.6-0.9/0.6-1.0 cm LVIDd: 5.44 3.9-5.3/4.2-5.9 cm LVIDd Index: 2.53 2.4-3.2/2.2-3.1 cm/m2 LVIDs: 4.13 2.0-3.6 cm LVPWd: 0.77 0.7-1.1 cm LA Diam: 3.60 2.7-3.8/3.0-4.0 cm LAIDs Index: 1.67 1.5-2.3 cm/m2 LV Mass: 188.83 67-162/88-224 g LV Mass Index: 87.83 43-95/49-115 g/m2 LVOT Diam: 2.00 3.0+(-)1.3 cm 2D Systolic Function EF 4C: 47.80 >55% EF 2C: 40.60 >55% EF BiP: 42.60 >55% Mitral Valve MV Pk E: 0.80 MV PK A: 1.11 MV Decel Time: 177.00 E/A: 0.70 E'Lateral: 7.07 E'Medial: 5.55 E/E' Med: 14.40 E/E' Lat: 11.30 PHT: 52.00 MVA PHT: 4.23 Decel Hyde: 4.52 Aortic Valve AoV Pk Ronal: 1.71 AoV Mn Ronal: 1.19 AoV VTI: 0.39 AoV Pk Grad: 12.00 Aov Mn Grad: 6.00 NATTY Cont.VTI: 1.87 LVOT LVOT Pk Ronal: 1.00 LVOT Mn Ronal: 0.73 LVOT VTI: 0.23 LVOT Pk Grad: 4.00 LVOT Mn Grad: 3.00 LVOT Diam: 2.00 LVOT Area: 3.14 Diastolic Function MV Pk E: 0.80 MV Pk A: 1.11 E/A: 0.70 E'Medial: 5.55 E/E' Med: 14.40 E' Laterial: 7.07 E/E' Lat: 11.30 Right Ventricle TAPSE (mm): 18.00 TVS' Ronal: 8.00 Tricuspid Valve TR Pk Ronal: 2.27 TR Pk Grad: 21.00 RA Press: 3.00 RVSP: 24.00 Great Vessels Aorta Sinus of Valsalva: 3.40 2.0-3.5 cm Ao Asc: 3.20 2.1-3.4 cm Pulmonary Veins Pulm Vein S/D 1.50 Pulmonary Valve PV Pk Ronal: 1.17 Peak PV Grad: 5.00 Updated in Other Vendor System with Status of Final Kvng Kennedy MD electronically signed on 06/06/2023 4:17:10 PM with status of Final
[2023-06-06 07:20] LABS: Glucose, Whole Blood 98 mg/dL (60-115)
[2023-06-06 07:32] VITALS: BP 150/60; PULSE 66; RESP 20; TEMP 36.1; O2SAT 97
[2023-06-06] MEDS: Naltrexone HCl 50 MG TABLET PO (08:48)
[2023-06-06] MEDS: Multivitamin TABLET 1 TAB PO (08:49)
[2023-06-06] MEDS: Lactulose 20 GM/30 ML SOLUTION 30 GM PO ×3 (08:49→20:58)
[2023-06-06] MEDS: Gabapentin 100 MG CAPSULE PO ×3 (08:49→20:58)
[2023-06-06] MEDS: Folic Acid 1 MG TABLET PO (08:49)
[2023-06-06] MEDS: Sertraline HCL 50 MG TABLET PO (08:49)
[2023-06-06] MEDS: Thiamine HCL 100 MG TABLET PO (08:49)
[2023-06-06] MEDS: Sodium Bicarbonate 650 MG TABLET PO ×3 (08:49→20:58)
[2023-06-06] MEDS: rifAXIMin 550 MG TABLET PO ×2 (08:49→20:58)
--- NOTE | 2023-06-06 10:27 | MHC.CM.PN ---
INTAKE COMPLETED BY YESTERDAYS CM, PER NOTE, PT WILL RETURN TO [facility] VIA BLS AT [facility] DELIVERED ON 06/05/23
[2023-06-06 11:19] LABS: Glucose, Whole Blood 139 mg/dL (60-115)
[2023-06-06 11:34] VITALS: BP 103/51; PULSE 68; RESP 16; TEMP 36.8; O2SAT 97
--- NOTE | 2023-06-06 12:50 | HO.PM.IMPN ---
Subjective Subjective Date of Service: 06/06/23 Interval History: Seen and examined this morning follow-up for PENNY, possible UTI, recurrent ascites argumentative, frequently requesting plan after this provider gives specific information regarding the plan refused lab draw this morning reporting some abdominal discomfort, no vomiting, no fever Review of Systems Review of Systems: Yes all other systems are reviewed and are negative Constitutional Constitutional: Denies chills and Denies fever(s) Physical Exam Vital Signs: Vital Signs: Last Vital Signs Temp 98.3 F 06/06/23 11:34 Pulse 68 06/06/23 11:34 Resp 16 06/06/23 11:34 BP 103/51 L 06/06/23 11:34 Pulse Ox 97 06/06/23 11:34 O2 Del Method Room Air 06/06/23 11:34 BMI result Body Mass Index 34.2 Const: General: comfortable, no acute distress, alert and awake Nutritional Appearance: overweight Resp: Effort & Inspection: normal respiratory effort, able to speak in complete sentences, no respiratory distress and no use of accessory muscles Cardio: Rate: regular rate GI: Other: softly distended, no guarding or rebound : Other: chronic garcia present Neuro: Other: no asterixis General: moves all extremities and CN's II-XI intact bilaterally Objective Data Active Medications Acetaminophen (Acetaminophen 325 Mg Tablet) 650 mg PO DAILY PRN PRN Reason: Fever Bisacodyl (Bisacodyl 10 Mg Supp.Rect) 10 mg WA DAILY PRN PRN Reason: Constipation Dextrose (Dextrose 50 % 25 Gm/50 Ml Syringe) 25 gm IVPUSH Q15M PRN; Protocol PRN Reason: per Hypoglycemia Standing Ord. Folic Acid (Folic Acid 1 Mg Tablet) 1 mg PO DAILY [facility] Last Admin: 06/06/23 08:49 Dose: 1 mg Documented By: FRANCA Gabapentin (Gabapentin 100 Mg Capsule) 100 mg PO TID [facility] Last Admin: 06/06/23 08:49 Dose: 100 mg Documented By: FRANCA Glucose (Glucose Gel 15 Gm Gel..Gram.) 15 gm PO Q15M PRN; Protocol PRN Reason: per Hypoglycemia Standing Ord. Ceftriaxone Sodium 1 gm/ (Sodium Chloride) 50 mls @ 100 mls/hr IV Q24H [facility] Last Infusion: 06/05/23 21:30 Dose: Infused Documented By: TANIA Insulin Human Lispro (Insulin Lispro 100 Unit/Ml 3 Ml Vial) 0 unit SUBCUT QIDACHS [facility]; Protocol Last Admin: 06/06/23 11:46 Dose: Not Given Documented By: FRANCA Non-Admin Reason: No Insulin Coverage Lactulose (Lactulose 20 Gm/30 Ml Solution) 30 gm PO TID [facility] Last Admin: 06/06/23 08:49 Dose: 30 gm Documented By: FRANCA Magnesium Hydroxide (Milk Of Magnesia 30 Ml Oral.Susp) 400 ml PO DAILY PRN PRN Reason: Constipation Melatonin (Melatonin 3 Mg Tablet) 3 mg PO BEDTIME [facility] Last Admin: 06/05/23 20:43 Dose: 3 mg Documented By: TANIA Midodrine (Midodrine Hcl 10 Mg Tablet) 10 mg PO TID@0600,1200,1800 [facility] Last Admin: 06/06/23 05:59 Dose: 10 mg Documented By: ACOSTA Multivitamins/Vitamin C (Multivitamin Tablet) 1 tab PO DAILY [facility] Last Admin: 06/06/23 08:49 Dose: 1 tab Documented By: FRANCA Naltrexone HCl (Naltrexone Hcl 50 Mg Tablet) 50 mg PO DAILY [facility] Last Admin: 06/06/23 08:48 Dose: 50 mg Documented By: FRANCA Omeprazole (Omeprazole 20 Mg Capsule.) 20 mg PO DAILY@0600 [facility] Last Admin: 06/06/23 06:00 Dose: 20 mg Documented By: ACOSTA Ondansetron HCl (Ondansetron Hcl 4 Mg/2 Ml Vial) 4 mg IVPUSH Q8H PRN PRN Reason: Nausea and Vomiting Rifaximin (Rifaximin 550 Mg Tablet) 550 mg PO BID [facility] Last Admin: 06/06/23 08:49 Dose: 550 mg Documented By: FRANCA Senna (Sennosides 8.6 Mg Tablet) 17.2 mg PO BEDTIME PRN PRN Reason: Constipation Sertraline HCl (Sertraline Hcl 50 Mg Tablet) 50 mg PO DAILY [facility] Last Admin: 06/06/23 08:49 Dose: 50 mg Documented By: FRANCA Sodium Bicarbonate (Sodium Bicarbonate 650 Mg Tablet) 650 mg PO TID [facility] Last Admin: 06/06/23 08:49 Dose: 650 mg Documented By: FRANCA Sodium Biphosphate/Sodium Phosphate (Sodium Phosphate,Jennings-Dibasic 133 Ml Enema) 118 ml WA DAILY PRN PRN Reason: Constipation Sodium Chloride (0.9 % Sodium Chloride Flush 3 Ml Syringe) 3 ml IVFLUSH QSHIFT [facility] Last Admin: 06/06/23 08:49 Dose: 3 ml Documented By: FRANCA Thiamine HCl (Thiamine Hcl 100 Mg Tablet) 100 mg PO DAILY [facility] Last Admin: 06/06/23 08:49 Dose: 100 mg Documented By: FRANCA Labs 06/04/23 15:12 06/04/23 15:12 Labs: Laboratory Results - last 24 hr 06/05/23 06/05/23 06/06/23 16:32 19:35 07:17 POC Glucose 148 H 204 H 98 06/06/23 11:14 POC Glucose 139 H Microbiology Microbiology Results: Microbiology 06/04/23 20:02 Urine Culture - Preliminary Urine clean catch Yeast 06/05/23 10:05 Gram Stain - Final Peritoneal Fluid Routine Culture - Preliminary No growth to date. Anaerobic Culture - Preliminary No growth to date. Assessment and Plan (1) Chronic indwelling Garcia catheter: Status: Acute (2) PENNY (acute kidney injury): Status: Acute Plan 67-year-old gentleman [facility] with past medical history of alcoholic cirrhosis, chronic indwelling urine catheter, orthostatic hypotension on midodrine, GERD, diabetes mellitus type 2 on insulin, recently discharged from [facility] on May 11 due to PENNY and decompensated cirrhosis with ascites admitted for management of decompensated hepatic cirrhosis with ascites and acute kidney injury Acute kidney injury likely hepatorenal due to ascites reaccumulation follow renal function/lytes pt refused blood draw this am recurrent ascites does have underlying history of etoh liver disease had previous paracentesis from 05/26 on last admission, albumin and protein were still pending, but finally resulted->SAAG >1.1, likely portal HTN. GI rec echo to rule out CHF therapeutic and diagnostic paracentesis 06/04, albumin/protein pending, unable to calculate SAAG at this time. gram stain with no organisms, culture no growth to date sodium restriction unlikely to tolerate diuretics at this time due to soft blood pressures. GI consult for medication optimization acute Garcia catheter associated UTI chronic indwelling Garcia catheter IV ceftriaxone (initiated 06/03) cultures Chronic hepatic encephalopathy normal ammonia. no asterixis on exam continue lactulose, rifaximin Orhtostatic hypotension 2/2 above continue midodrine insulin-dependent type 2 diabetes diabetic diet ss BPH with chronic obstructive uropathy continue Garcia catheter GERD PPI DVT prophylaxis- scps, consider parental ac post procedure Attending Dr. Nielson full code continue hospital stay for management of penny due to recurrent ascites requiring further workup to determine source and close monitoring of renal function and electrolyte levels as well as expert consultation Quality Stroke Does the patient have a stroke diagnosis?: No VTE Prior VTE?: No VTE Risk Level:: Medical - moderate - high VTE Device Contraindication: Treatment Not Indicated VTE Drug Contraindication: N/A - Med Ordered
[2023-06-06 15:19] VITALS: BP 139/62; PULSE 71; RESP 18; TEMP 36.1; O2SAT 94
[2023-06-06 16:07] LABS: Glucose, Whole Blood 160 mg/dL (60-115)
[2023-06-06] MEDS: Insulin Lispro 100 UNIT/ML 3 ML VIAL SUBCUT ×2 (16:54→21:08)
[2023-06-06 19:12] VITALS: BP 118/57; PULSE 67; RESP 18; TEMP 36.2; O2SAT 100
[2023-06-06 20:44] LABS: Glucose, Whole Blood 156 mg/dL (60-115)
[2023-06-06] MEDS: Melatonin 3 MG TABLET PO (20:58)
[2023-06-06] MEDS: cefTRIAXone sodium 1 GM in 0.9 % Sodium Chloride 50 ML IV (20:58)
[2023-06-07] VITALS (8 sets, daily range): BP systolic 101–134; BP diastolic 54–64; PULSE 61–80; RESP 16–18; TEMP 36.2–36.8; O2SAT 96–100
[2023-06-07] MEDS: Midodrine HCl 10 MG TABLET PO ×3 (05:39→17:08)
[2023-06-07] MEDS: Omeprazole 20 MG CAPSULE.DR PO (05:39)
[2023-06-07 06:18] LABS: Hematocrit 25.9 % (42.0-52.0); Hemoglobin 8.7 g/dl (14.0-18.0); Mean Corpuscular HGB Conc 33.6 g/dl (31.0-36.0); Mean Corpuscular Hemoglobin 30.3 pg (27.0-33.0); Mean Corpuscular Volume 90.2 fL (80.0-98.0); Mean Platelet Volume 10.4 fL (9.4-12.4); Platelet Count 190 X10*3/uL (160-400); Red Blood Count 2.87 X10*6/uL (4.60-5.80); Red Cell Distribution Width 17.4 % (11.0-16.0); White Blood Count 6.6 X10*3/uL (4.8-10.8)
[2023-06-07 06:35] LABS: Anion Gap 14 (12-20); Blood Urea Nitrogen 39 mg/dL (9-16); Calcium 9.3 mg/dL (8.4-10.2); Carbon Dioxide 25 mmol/L (22-29); Chloride 108 mmol/L (96-108); Creatinine Clr Calc Pharmacy 31.1; Estimated Glomerular Filt Rate 25; Glucose Random 126 mg/dL (60-115); Potassium 5.5 mmol/L (3.3-5.1); Sodium 141 mmol/L (135-145)
[2023-06-07 07:14] LABS: Glucose, Whole Blood 118 mg/dL (60-115)
[2023-06-07] MEDS: Sertraline HCL 50 MG TABLET PO (09:14)
[2023-06-07] MEDS: Naltrexone HCl 50 MG TABLET PO (09:14)
[2023-06-07] MEDS: Multivitamin TABLET 1 TAB PO (09:14)
[2023-06-07] MEDS: Folic Acid 1 MG TABLET PO (09:14)
[2023-06-07] MEDS: rifAXIMin 550 MG TABLET PO ×2 (09:14→20:56)
[2023-06-07] MEDS: Gabapentin 100 MG CAPSULE PO ×3 (09:14→20:56)
[2023-06-07] MEDS: Thiamine HCL 100 MG TABLET PO (09:14)
[2023-06-07] MEDS: Lactulose 20 GM/30 ML SOLUTION 30 GM PO ×2 (09:14→20:56)
[2023-06-07] MEDS: Sodium Bicarbonate 650 MG TABLET PO ×3 (09:14→20:56)
[2023-06-07] MEDS: 0.9 % Sodium Chloride Flush 3 ML SYRINGE IVFLUSH ×3 (09:16→21:14)
--- NOTE | 2023-06-07 10:47 | P.CONCA_ITS ---
History of Present Illness History of Present Illness Date of Service: 06/07/23 Requesting physician: Amada Wills Chief complaint: PENNY, decompensated cirrhosis, cardiomyopathy Narrative: 67-year-old gentleman presenting for decompensated cirrhosis of liver. He has ascites. He is background of alcoholism and was drinking alcohol I was of 3 months ago. Recently was in a facility. He said he was experiencing abdominal distention and a lot of tension in the abdomen did he had paracentesis performed. He had a routine echocardiogram performed which showed EF 30-35%. Low normal right ventricle function. Small pericardial effusion and moderate ascites was noted. EKG showed sinus rhythm with left anterior fascicular block and right bundle- branch block. Can not rule out inferior infarct. He is denying any dyspnea or chest discomfort. No orthopnea or PND. He had paracentesis performed in since then his creatinine has been rising. 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 Orthostatic hypotension Chronic liver disease Type 2 diabetes mellitus Social History Social History Household Members: None Housing: Prison Do you presently have visiting nurse or other home services: No Alcohol intake: former Patient Tobacco Use Status: Former Tobacco user Substance Use Type: Marijuana service: No Meds Allergies Allergy/AdvReac Type Severity Reaction Status Date / Time lisinopril Allergy Angioedema Verified 04/30/23 17:28 scallops Allergy Angioedema Verified 04/30/23 17:28 Active Medications: Current Medications Acetaminophen (Acetaminophen 325 Mg Tablet) 650 mg PO DAILY PRN PRN Reason: Fever Bisacodyl (Bisacodyl 10 Mg Supp.Rect) 10 mg MS DAILY PRN PRN Reason: Constipation Dextrose (Dextrose 50 % 25 Gm/50 Ml Syringe) 25 gm IVPUSH Q15M PRN; Protocol PRN Reason: per Hypoglycemia Standing Ord. Folic Acid (Folic Acid 1 Mg Tablet) 1 mg PO DAILY [facility] Last Admin: 06/07/23 09:14 Dose: 1 mg Gabapentin (Gabapentin 100 Mg Capsule) 100 mg PO TID [facility] Last Admin: 06/07/23 09:14 Dose: 100 mg Glucose (Glucose Gel 15 Gm Gel..Gram.) 15 gm PO Q15M PRN; Protocol PRN Reason: per Hypoglycemia Standing Ord. Ceftriaxone Sodium 1 gm/ (Sodium Chloride) 50 mls @ 100 mls/hr IV Q24H [facility] Last Infusion: 06/06/23 21:28 Dose: Infused Insulin Human Lispro (Insulin Lispro 100 Unit/Ml 3 Ml Vial) 0 unit SUBCUT QIDACHS [facility]; Protocol Last Admin: 06/07/23 08:08 Dose: Not Given Lactulose (Lactulose 20 Gm/30 Ml Solution) 30 gm PO TID [facility] Last Admin: 06/07/23 09:14 Dose: 30 gm Magnesium Hydroxide (Milk Of Magnesia 30 Ml Oral.Susp) 400 ml PO DAILY PRN PRN Reason: Constipation Melatonin (Melatonin 3 Mg Tablet) 3 mg PO BEDTIME [facility] Last Admin: 06/06/23 20:58 Dose: 3 mg Midodrine (Midodrine Hcl 10 Mg Tablet) 10 mg PO TID@0600,1200,1800 [facility] Last Admin: 06/07/23 05:39 Dose: 10 mg Multivitamins/Vitamin C (Multivitamin Tablet) 1 tab PO DAILY [facility] Last Admin: 06/07/23 09:14 Dose: 1 tab Naltrexone HCl (Naltrexone Hcl 50 Mg Tablet) 50 mg PO DAILY [facility] Last Admin: 06/07/23 09:14 Dose: 50 mg Omeprazole (Omeprazole 20 Mg Capsule.Dr) 20 mg PO DAILY@0600 [facility] Last Admin: 06/07/23 05:39 Dose: 20 mg Ondansetron HCl (Ondansetron Hcl 4 Mg/2 Ml Vial) 4 mg IVPUSH Q8H PRN PRN Reason: Nausea and Vomiting Rifaximin (Rifaximin 550 Mg Tablet) 550 mg PO BID [facility] Last Admin: 06/07/23 09:14 Dose: 550 mg Senna (Sennosides 8.6 Mg Tablet) 17.2 mg PO BEDTIME PRN PRN Reason: Constipation Sertraline HCl (Sertraline Hcl 50 Mg Tablet) 50 mg PO DAILY [facility] Last Admin: 06/07/23 09:14 Dose: 50 mg Sodium Bicarbonate (Sodium Bicarbonate 650 Mg Tablet) 650 mg PO TID [facility] Last Admin: 06/07/23 09:14 Dose: 650 mg Sodium Biphosphate/Sodium Phosphate (Sodium Phosphate,Spencer-Dibasic 133 Ml Enema) 118 ml MS DAILY PRN PRN Reason: Constipation Sodium Chloride (0.9 % Sodium Chloride Flush 3 Ml Syringe) 3 ml IVFLUSH QSHIFT [facility] Last Admin: 06/07/23 09:16 Dose: 3 ml Thiamine HCl (Thiamine Hcl 100 Mg Tablet) 100 mg PO DAILY [facility] Last Admin: 06/07/23 09:14 Dose: 100 mg Home Medications Medication Instructions Recorded Confirmed Last Taken Type acetaminophen 325 mg tablet 650 mg PO DAILY PRN Fever 04/30/23 06/04/23 Unknown History folic acid 1 mg tablet 1 mg PO DAILY 04/30/23 06/04/23 Unknown History gabapentin 100 mg capsule 100 mg PO TID 04/30/23 06/04/23 Unknown History lactulose 10 gram/15 mL oral 45 ml PO TID 04/30/23 06/04/23 Unknown History solution melatonin 3 mg tablet 3 mg PO BEDTIME Sleep 04/30/23 06/04/23 Unknown History midodrine 10 mg tablet 10 mg PO TID@0600,1200,1800 04/30/23 06/04/23 Unknown History multivitamin 1 tab PO DAILY 04/30/23 06/04/23 Unknown History naltrexone 50 mg tablet 50 mg PO DAILY 04/30/23 06/04/23 Unknown History pantoprazole 40 mg tablet,delayed 40 mg PO DAILY@0600 04/30/23 06/04/23 Unknown History release rifaximin 550 mg tablet (Xifaxan) 550 mg PO BID 04/30/23 06/04/23 Unknown History sertraline 50 mg tablet 50 mg PO DAILY 04/30/23 06/04/23 Unknown History thiamine HCl (vitamin B1) 100 mg 100 mg PO DAILY 04/30/23 06/04/23 Unknown History tablet bisacodyl 10 mg rectal suppository 10 mg MS DAILY PRN Constipation 05/20/23 06/04/23 Unknown History magnesium hydroxide 400 mg/5 mL 400 ml PO DAILY PRN Constipation 05/20/23 06/04/23 Unknown History oral suspension (Milk of Magnesia) ondansetron HCl 4 mg tablet 4 mg PO Q4H PRN nausea/vomting 05/20/23 06/04/23 Unknown History sodium phosphates 19 gram-7 118 ml MS DAILY PRN Constipation 05/20/23 06/04/23 Unknown History gram/118 mL enema (Fleet Enema) Physical Exam 2 Vital Signs: Vital Signs: Last Vital Signs Temp 97.1 F 06/07/23 07:00 Pulse 61 06/07/23 07:00 Resp 18 06/07/23 07:00 BP 127/61 06/07/23 07:00 Pulse Ox 97 06/07/23 07:00 O2 Del Method Room Air 06/07/23 07:00 BMI result Body Mass Index 34.2 GENERAL APPEARANCE: in no acute distress, pleasant. NECK: no carotid bruit, no jugular venous distention. SKIN: no suspicious lesions, warm and dry. HEART: no murmurs, regular rate and rhythm. LUNGS: clear to auscultation bilaterally. ABDOMEN: soft, distended with dull to percussion. Nontender. EXTREMITIES: Trace edema. PERIPHERAL PULSES: equal. NEUROLOGIC: No gross deficits, AAO X 3 Objective Labs and Meds 06/07/23 05:39 06/07/23 05:39 Lab results: Laboratory Results - last 24 hr 06/06/23 06/06/23 06/06/23 11:14 15:57 20:30 WBC RBC Hgb Hct MCV MCH MCHC RDW Plt Count MPV Absolute Nucleated RBC Nucleated RBC % (auto) Sodium Potassium Chloride Carbon Dioxide Anion Gap BUN Creatinine Estim Creat Clear Calc Estimated GFR POC Glucose 139 H 160 H 156 H Random Glucose Calcium 06/07/23 06/07/23 05:39 07:10 WBC 6.6 RBC 2.87 L Hgb 8.7 L Hct 25.9 L MCV 90.2 MCH 30.3 MCHC 33.6 RDW 17.4 H Plt Count 190 D MPV 10.4 Absolute Nucleated RBC 0.000 Nucleated RBC % (auto) 0.0 Sodium 141 Potassium 5.5 H Chloride 108 Carbon Dioxide 25 Anion Gap 14 BUN 39 H Creatinine 2.59 H Estim Creat Clear Calc 31.1 Estimated GFR 25 POC Glucose 118 H Random Glucose 126 H Calcium 9.3 Assessment and Plan (1) Cardiomyopathy: Status: Acute (2) Cirrhosis: Status: Acute Plan 67-year-old gentleman presenting for cirrhosis of liver and ascites. He had routine echocardiography performed which is showing moderate LV dysfunction and borderline RV dysfunction. He was drinking heavily as of 3 months ago. 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 He is compensated currently and clinically appears to be dry. I think creatinine is rising because he is intravascularly dry. Consider gentle fluids or giving him 1 unit of blood. Monitor creatinine closely. He has been on chronic midodrine therapy because of chronic hypotension. He also has an allergy to EVA inhibitor with angioedema so ARB or Entresto can not be used. Beta-tramaine should not be the 1st drug to use in his case anyway. He is hyperkalemic and can not take spironolactone. Currently would recommend giving some fluids or blood and reassessing his kidney function. Not clinically in volume overload. Cardiomyopathy likely related to alcoholism in the past. Thank you for allowing me to participate in the care of your patient. Please feel free to contact me if you have any questions. Procedures Date of Service Date of Service: 06/07/23
[2023-06-07 11:11] LABS: Glucose, Whole Blood 109 mg/dL (60-115)
[2023-06-07] MEDS: Albumin Human 25 % 100 ML IV ×3 (11:48→21:20)
[2023-06-07] MEDS: Sodium Zirconium Cyclosilicate 10 GM POWD.PACK PO (11:48)
--- NOTE | 2023-06-07 12:34 | PM.GICN ---
History of Present Illness Data of Consult Service Date: 06/07/23 Requesting physician: Amada Wills Primary Care Provider: Sharon Lopez MD [facility] Reason for consult: ? decomp cirrhosis This is a 67-year-old gentleman with past medical history chronic with indwelling catheter, GERD, type 2 diabetes, who was brought to the hospital for worsening ascites. Pt recently had a prolonged hospital admission for encephalopathy and PENNY on CKD earlier this month. At that time ascitic fluid analysis was not consistent with cirrhotic ascites. THis is consistent with his overall liver function profile with platelet count and EGD at [facility] without any signs portal hypertension including gastropathy or varices. Currently, reports abd discomfort due to bloating and generalised weakness. Labs with low but stable H/H. Worsening renal function. LFTs normal on admission except mildly elevated indirect bili. Para done 06/04 - 2L removed. Para labs are high SAAG with HIGH total protein suggestive of cardiac ascites. 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 Orthostatic hypotension Chronic liver disease Type 2 diabetes mellitus Social History Social History Household Members: None Housing: Assisted Do you presently have visiting nurse or other home services: No Alcohol intake: former Patient Tobacco Use Status: Former Tobacco user Substance Use Type: Marijuana service: No Meds Allergies Allergy/AdvReac Type Severity Reaction Status Date / Time lisinopril Allergy Angioedema Verified 04/30/23 17:28 scallops Allergy Angioedema Verified 04/30/23 17:28 Active Medications: Current Medications Acetaminophen (Acetaminophen 325 Mg Tablet) 650 mg PO DAILY PRN PRN Reason: Fever Bisacodyl (Bisacodyl 10 Mg Supp.Rect) 10 mg VA DAILY PRN PRN Reason: Constipation Dextrose (Dextrose 50 % 25 Gm/50 Ml Syringe) 25 gm IVPUSH Q15M PRN; Protocol PRN Reason: per Hypoglycemia Standing Ord. Folic Acid (Folic Acid 1 Mg Tablet) 1 mg PO DAILY [facility] Last Admin: 06/07/23 09:14 Dose: 1 mg Gabapentin (Gabapentin 100 Mg Capsule) 100 mg PO TID [facility] Last Admin: 06/07/23 09:14 Dose: 100 mg Glucose (Glucose Gel 15 Gm Gel..Gram.) 15 gm PO Q15M PRN; Protocol PRN Reason: per Hypoglycemia Standing Ord. Ceftriaxone Sodium 1 gm/ (Sodium Chloride) 50 mls @ 100 mls/hr IV Q24H [facility] Last Infusion: 06/06/23 21:28 Dose: Infused Albumin Human (Kedbumin 25 %) 100 mls @ 100 mls/hr IV Q1H [facility] Stop: 06/07/23 13:14 Last Admin: 06/07/23 11:48 Dose: 100 mls/hr Insulin Human Lispro (Insulin Lispro 100 Unit/Ml 3 Ml Vial) 0 unit SUBCUT QIDACHS [facility]; Protocol Last Admin: 06/07/23 11:12 Dose: Not Given Lactulose (Lactulose 20 Gm/30 Ml Solution) 30 gm PO TID [facility] Last Admin: 06/07/23 09:14 Dose: 30 gm Magnesium Hydroxide (Milk Of Magnesia 30 Ml Oral.Susp) 400 ml PO DAILY PRN PRN Reason: Constipation Melatonin (Melatonin 3 Mg Tablet) 3 mg PO BEDTIME [facility] Last Admin: 06/06/23 20:58 Dose: 3 mg Midodrine (Midodrine Hcl 10 Mg Tablet) 10 mg PO TID@0600,1200,1800 [facility] Last Admin: 06/07/23 05:39 Dose: 10 mg Multivitamins/Vitamin C (Multivitamin Tablet) 1 tab PO DAILY [facility] Last Admin: 06/07/23 09:14 Dose: 1 tab Naltrexone HCl (Naltrexone Hcl 50 Mg Tablet) 50 mg PO DAILY [facility] Last Admin: 06/07/23 09:14 Dose: 50 mg Omeprazole (Omeprazole 20 Mg Capsule.Dr) 20 mg PO DAILY@0600 [facility] Last Admin: 06/07/23 05:39 Dose: 20 mg Ondansetron HCl (Ondansetron Hcl 4 Mg/2 Ml Vial) 4 mg IVPUSH Q8H PRN PRN Reason: Nausea and Vomiting Rifaximin (Rifaximin 550 Mg Tablet) 550 mg PO BID [facility] Last Admin: 06/07/23 09:14 Dose: 550 mg Senna (Sennosides 8.6 Mg Tablet) 17.2 mg PO BEDTIME PRN PRN Reason: Constipation Sertraline HCl (Sertraline Hcl 50 Mg Tablet) 50 mg PO DAILY [facility] Last Admin: 06/07/23 09:14 Dose: 50 mg Sodium Bicarbonate (Sodium Bicarbonate 650 Mg Tablet) 650 mg PO TID [facility] Last Admin: 06/07/23 09:14 Dose: 650 mg Sodium Biphosphate/Sodium Phosphate (Sodium Phosphate,[place]-Dibasic 133 Ml Enema) 118 ml VA DAILY PRN PRN Reason: Constipation Sodium Chloride (0.9 % Sodium Chloride Flush 3 Ml Syringe) 3 ml IVFLUSH QSHIFT [facility] Last Admin: 06/07/23 09:16 Dose: 3 ml Thiamine HCl (Thiamine Hcl 100 Mg Tablet) 100 mg PO DAILY [facility] Last Admin: 06/07/23 09:14 Dose: 100 mg Home Medications Medication Instructions Recorded Confirmed Last Taken Type acetaminophen 325 mg tablet 650 mg PO DAILY PRN Fever 04/30/23 06/04/23 Unknown History folic acid 1 mg tablet 1 mg PO DAILY 04/30/23 06/04/23 Unknown History gabapentin 100 mg capsule 100 mg PO TID 04/30/23 06/04/23 Unknown History lactulose 10 gram/15 mL oral 45 ml PO TID 04/30/23 06/04/23 Unknown History solution melatonin 3 mg tablet 3 mg PO BEDTIME Sleep 04/30/23 06/04/23 Unknown History midodrine 10 mg tablet 10 mg PO TID@0600,1200,1800 04/30/23 06/04/23 Unknown History multivitamin 1 tab PO DAILY 04/30/23 06/04/23 Unknown History naltrexone 50 mg tablet 50 mg PO DAILY 04/30/23 06/04/23 Unknown History pantoprazole 40 mg tablet,delayed 40 mg PO DAILY@0600 04/30/23 06/04/23 Unknown History release rifaximin 550 mg tablet (Xifaxan) 550 mg PO BID 04/30/23 06/04/23 Unknown History sertraline 50 mg tablet 50 mg PO DAILY 04/30/23 06/04/23 Unknown History thiamine HCl (vitamin B1) 100 mg 100 mg PO DAILY 04/30/23 06/04/23 Unknown History tablet bisacodyl 10 mg rectal suppository 10 mg VA DAILY PRN Constipation 05/20/23 06/04/23 Unknown History magnesium hydroxide 400 mg/5 mL 400 ml PO DAILY PRN Constipation 05/20/23 06/04/23 Unknown History oral suspension (Milk of Magnesia) ondansetron HCl 4 mg tablet 4 mg PO Q4H PRN nausea/vomting 05/20/23 06/04/23 Unknown History sodium phosphates 19 gram-7 118 ml VA DAILY PRN Constipation 05/20/23 06/04/23 Unknown History gram/118 mL enema (Fleet Enema) Physical Exam Vital Signs: Vital Signs: Last Vital Signs Temp 97.1 F 06/07/23 07:00 Pulse 61 06/07/23 07:00 Resp 18 06/07/23 07:00 BP 127/61 06/07/23 07:00 Pulse Ox 97 06/07/23 07:00 O2 Del Method Room Air 06/07/23 07:00 BMI result Body Mass Index 34.2 Elderly gent, obese Nonicteric abd soft, nontender, distended, + hepatojugular reflux no overt resp distress A/Ox2, no asterixis Results Labs 06/07/23 05:39 06/07/23 05:39 Labs: Short CBC 06/07/23 Range/Units 05:39 WBC 6.6 (4.8-10.8) X10*3/uL Hgb 8.7 L (14.0-18.0) g/dl Hct 25.9 L (42.0-52.0) % Plt Count 190 D (160-400) X10*3/uL BMP 06/07/23 05:39 Sodium 141 Potassium 5.5 H Chloride 108 Carbon Dioxide 25 BUN 39 H Creatinine 2.59 H Calcium 9.3 Microbiology Microbiology Results: Microbiology 06/04/23 20:02 Urine clean catch Urine Culture - Preliminary Yeast 06/05/23 10:05 Peritoneal Fluid Gram Stain - Final 06/05/23 10:05 Peritoneal Fluid Routine Culture - Final No growth after 2 days 06/05/23 10:05 Peritoneal Fluid Anaerobic Culture - Preliminary No growth to date. Assessment and Plan (1) Acute kidney injury: Status: Resolved (2) Cirrhosis: Status: Acute (3) Ascites: Qualifiers: Ascites type: due to alcoholic cirrhosis Qualified Code(s): K70.31 - Alcoholic cirrhosis of liver with ascites Status: Acute (4) Cardiomyopathy: Status: Acute Plan Gastroenterology has been consulted for ascites management and hepatorenal syndrome, however based on overall clinical assessment (platelet count, spleen size, EGD at [facility] without any PHG or varices; and ascitic fluid with high SAAG and HIGH total protein) are not suggestive of cirrhotic ascites. Pt does appear to have advanced fibrosis vs underlying cirrhosis likely from etOH use +/- congestive hepatopathy from cardiomyopathy. However, based on ascitic fluid analysis this is most consistent with cardiac ascites at this time. Plan: - Limited role of IV albumin since clinical picture less likely from HRS/PENNY - Check UA, check Mayra, K and Cr - may guide with fluid challenge vs diuresis - Consider Cardiology and nephrology consultation Thank you for allowing me to participate in his care. Please do not hesitate to reach out for any questions or concerns. Procedures Date of Service Date of Service: 06/07/23
--- NOTE | 2023-06-07 13:03 | MHC.CM.PN ---
EMR REVIEWED AND PER MD ROUNDS, PT IS NOT MEDICALLY CLEARED FOR DC. [facility] REQUESTS A NEW P.T. EVAL FOR AUTH WHEN PT MEDICALLY CLEARED THEY WILL NEED TO SEEK INSURANCE AUTH. CM WILL CONTINUE TO FOLLOW FOR ANY CHANGE IN DC NEEDS/PLAN.
--- NOTE | 2023-06-07 13:51 | HO.PM.IMPN ---
Subjective Subjective Date of Service: 06/07/23 Interval History: seen and examined this morning follow up for ascites, PENNY. echo with cardiomyopathy now with hyperkalemia this am Review of Systems Review of Systems: Yes all other systems are reviewed and are negative Constitutional Constitutional: Denies chills and Denies fever(s) Cardiovascular Cardiovascular: Denies chest pain, Denies palpitations, Denies dyspnea and Denies orthopnea Respiratory Respiratory: Denies cough and Denies dyspnea Endocrine Endocrine: Denies palpitations Physical Exam Vital Signs: Vital Signs: Last Vital Signs Temp 97.3 F 06/07/23 11:00 Pulse 80 06/07/23 11:00 Resp 18 06/07/23 11:00 BP 116/63 06/07/23 11:00 Pulse Ox 100 06/07/23 11:00 O2 Del Method Room Air 06/07/23 11:00 BMI result Body Mass Index 34.2 Const: General: comfortable, no acute distress, alert and awake Nutritional Appearance: overweight Orientation/consciousness: patient oriented x3 Resp: Effort & Inspection: normal respiratory effort, able to speak in complete sentences, no respiratory distress and no use of accessory muscles Cardio: Rate: regular rate GI: Other: softly distended, no guarding or rebound : Other: chronic garcia present Neuro: Other: no asterixis General: patient oriented x3, moves all extremities and CN's II-XI intact bilaterally Objective Data Active Medications Acetaminophen (Acetaminophen 325 Mg Tablet) 650 mg PO DAILY PRN PRN Reason: Fever Bisacodyl (Bisacodyl 10 Mg Supp.Rect) 10 mg [place] DAILY PRN PRN Reason: Constipation Dextrose (Dextrose 50 % 25 Gm/50 Ml Syringe) 25 gm IVPUSH Q15M PRN; Protocol PRN Reason: per Hypoglycemia Standing Ord. Folic Acid (Folic Acid 1 Mg Tablet) 1 mg PO DAILY [facility] Last Admin: 06/07/23 09:14 Dose: 1 mg Documented By: FRANCA Gabapentin (Gabapentin 100 Mg Capsule) 100 mg PO TID [facility] Last Admin: 06/07/23 09:14 Dose: 100 mg Documented By: FRANCA Glucose (Glucose Gel 15 Gm Gel..Gram.) 15 gm PO Q15M PRN; Protocol PRN Reason: per Hypoglycemia Standing Ord. Ceftriaxone Sodium 1 gm/ (Sodium Chloride) 50 mls @ 100 mls/hr IV Q24H [facility] Last Infusion: 06/06/23 21:28 Dose: Infused Documented By: BONNIE Albumin Human (Kedbumin 25 %) 100 mls @ 100 mls/hr IV Q6H [facility] Stop: 06/10/23 13:29 Insulin Human Lispro (Insulin Lispro 100 Unit/Ml 3 Ml Vial) 0 unit SUBCUT QIDACHS [facility]; Protocol Last Admin: 06/07/23 11:12 Dose: Not Given Documented By: FRANCA Non-Admin Reason: No Insulin Coverage Lactulose (Lactulose 20 Gm/30 Ml Solution) 30 gm PO TID [facility] Last Admin: 06/07/23 09:14 Dose: 30 gm Documented By: FRANCA Magnesium Hydroxide (Milk Of Magnesia 30 Ml Oral.Susp) 400 ml PO DAILY PRN PRN Reason: Constipation Melatonin (Melatonin 3 Mg Tablet) 3 mg PO BEDTIME [facility] Last Admin: 06/06/23 20:58 Dose: 3 mg Documented By: BONNIE Midodrine (Midodrine Hcl 10 Mg Tablet) 10 mg PO TID@0600,1200,1800 [facility] Last Admin: 06/07/23 05:39 Dose: 10 mg Documented By: BONNIE Multivitamins/Vitamin C (Multivitamin Tablet) 1 tab PO DAILY [facility] Last Admin: 06/07/23 09:14 Dose: 1 tab Documented By: FRANCA Naltrexone HCl (Naltrexone Hcl 50 Mg Tablet) 50 mg PO DAILY [facility] Last Admin: 06/07/23 09:14 Dose: 50 mg Documented By: FRANCA Omeprazole (Omeprazole 20 Mg Teresa.) 20 mg PO DAILY@0600 [facility] Last Admin: 06/07/23 05:39 Dose: 20 mg Documented By: BONNIE Ondansetron HCl (Ondansetron Hcl 4 Mg/2 Ml Vial) 4 mg IVPUSH Q8H PRN PRN Reason: Nausea and Vomiting Rifaximin (Rifaximin 550 Mg Tablet) 550 mg PO BID [facility] Last Admin: 06/07/23 09:14 Dose: 550 mg Documented By: FRANCA Senna (Sennosides 8.6 Mg Tablet) 17.2 mg PO BEDTIME PRN PRN Reason: Constipation Sertraline HCl (Sertraline Hcl 50 Mg Tablet) 50 mg PO DAILY [facility] Last Admin: 06/07/23 09:14 Dose: 50 mg Documented By: FRANCA Sodium Bicarbonate (Sodium Bicarbonate 650 Mg Tablet) 650 mg PO TID [facility] Last Admin: 06/07/23 09:14 Dose: 650 mg Documented By: FRANCA Sodium Biphosphate/Sodium Phosphate (Sodium Phosphate,[place]-Dibasic 133 Ml Enema) 118 ml [place] DAILY PRN PRN Reason: Constipation Sodium Chloride (0.9 % Sodium Chloride Flush 3 Ml Syringe) 3 ml IVFLUSH QSHIFT [facility] Last Admin: 06/07/23 09:16 Dose: 3 ml Documented By: FRANCA Thiamine HCl (Thiamine Hcl 100 Mg Tablet) 100 mg PO DAILY [facility] Last Admin: 06/07/23 09:14 Dose: 100 mg Documented By: FRANCA Labs 06/07/23 05:39 06/07/23 05:39 Labs: Laboratory Results - last 24 hr 06/06/23 06/06/23 06/07/23 15:57 20:30 05:39 MCV 90.2 MCH 30.3 MCHC 33.6 RDW 17.4 H Plt Count 190 D MPV 10.4 Absolute Nucleated RBC 0.000 Nucleated RBC % (auto) 0.0 Anion Gap 14 Estim Creat Clear Calc 31.1 Estimated GFR 25 POC Glucose 160 H 156 H Random Glucose 126 H Calcium 9.3 06/07/23 06/07/23 07:10 11:05 MCV MCH MCHC RDW Plt Count MPV Absolute Nucleated RBC Nucleated RBC % (auto) Anion Gap Estim Creat Clear Calc Estimated GFR POC Glucose 118 H 109 Random Glucose Calcium Microbiology Microbiology Results: Microbiology 06/04/23 20:02 Urine Culture - Preliminary Urine clean catch Yeast 06/05/23 10:05 Gram Stain - Final Peritoneal Fluid Routine Culture - Final No growth after 2 days Anaerobic Culture - Preliminary No growth to date. Assessment and Plan (1) Ascites: Status: Acute (2) PENNY (acute kidney injury): Status: Acute Plan 67-[facility]-old [facility] with past medical history of alcoholic cirrhosis, chronic indwelling urine catheter, orthostatic hypotension on midodrine, GERD, diabetes mellitus type 2 on insulin, recently discharged from [facility] on May 11 due to PENNY and decompensated cirrhosis with ascites admitted for management of decompensated hepatic cirrhosis with ascites and acute kidney injury Acute kidney injury likely hepatorenal due to ascites reaccumulation nephrology following albumin q6h follow renal function hyperkalemia lokelma follow BMP recurrent ascites has history of underlying liver disease but per GI previous ascitic fluid analysis was not consistent with cirrhotic ascites which is consistent with his overall liver function profile with normal platelets and EGD at [facility] without any signs portal hypertension including gastropathy or varices. therapeutic and diagnostic paracentesis 06/04, albumin/protein pending, unable to calculate SAAG at this time. gram stain with no organisms, culture no growth to date. echo with evidence of cardiomyopathy, but clinically no evidence of CHF sodium restriction unlikely to tolerate diuretics at this time due to soft blood pressures acute Garcia catheter associated UTI chronic indwelling Garcia catheter cultures growing yeast. will stop abx Chronic hepatic encephalopathy normal ammonia. no asterixis on exam continue lactulose, rifaximin Orhtostatic hypotension 2/2 above continue midodrine insulin-dependent type 2 diabetes diabetic diet ss BPH with chronic obstructive uropathy continue Garcia catheter GERD PPI chronic anemia H/H stable DVT prophylaxis- scps Attending Dr. Nielson full code continue hospital stay for management of penny due to recurrent ascites requiring further workup to determine source and close monitoring of renal function and electrolyte levels as well as expert consultation Quality Stroke Does the patient have a stroke diagnosis?: No VTE Prior VTE?: No VTE Risk Level:: Medical - moderate - high VTE Device Contraindication: Treatment Not Indicated VTE Drug Contraindication: N/A - Med Ordered
[2023-06-07 14:27] LABS: Albumin Peritoneal Fluid 1.8
[2023-06-07 14:32] LABS: Total Protein Peritoneal Fluid 2.5
[2023-06-07 16:23] LABS: Glucose, Whole Blood 201 mg/dL (60-115)
[2023-06-07] MEDS: Insulin Lispro 100 UNIT/ML 3 ML VIAL SUBCUT ×2 (17:07→20:57)
[2023-06-07 18:38] LABS: Potassium Urine Random 55.6 mmol/L
[2023-06-07 18:43] LABS: Creatinine Urine 122.37 mg/dL
[2023-06-07 20:50] LABS: Glucose, Whole Blood 169 mg/dL (60-115)
[2023-06-07] MEDS: Melatonin 3 MG TABLET PO (20:56)
--- NOTE | 2023-06-07 22:09 | P.PNNP_ITS ---
Subjective Subjective Date of Service: 06/07/23 Interval history: seen and examined this morning; echo with cardiomyopathy ; now with hyperkalemia this am Physical Exam 2 Vital Signs: Vital Signs: Last Vital Signs Temp 97.9 F 06/07/23 19:00 Pulse 68 06/07/23 15:00 Resp 16 06/07/23 19:00 BP 134/60 06/07/23 19:00 Pulse Ox 96 06/07/23 19:00 O2 Del Method Room Air 06/07/23 19:00 BMI result Body Mass Index 34.2 Const: General: comfortable and no acute distress O rientation/consciousness: patient oriented x3 HEENT: Head: Yes normocephalic Mouth: Normal oral and palatal mucosa present Eyes: EOM: EOMs intact bilaterally Neck: Neck: Yes supple Resp: Auscultation: clear to auscultation bilaterally Cardio: Jugular venous distension: no JVD Rate: regular rate GI: Palpation (GI): Soft to palpation Auscultation: normal bowel sounds : General: Yes no CVA tenderness Back/Spine/Pelvis: Back: no CVA tenderness Skin: General skin exam: no rashes or lesions noted Neuro: General: patient oriented x3 and moves all extremities Objective Data Labs 06/07/23 05:39 06/07/23 05:39 Labs: Laboratory Results - last 24 hr 06/05/23 06/07/23 06/07/23 10:05 05:39 07:10 WBC 6.6 RBC 2.87 L Hgb 8.7 L Hct 25.9 L MCV 90.2 MCH 30.3 MCHC 33.6 RDW 17.4 H Plt Count 190 D MPV 10.4 Absolute Nucleated RBC 0.000 Nucleated RBC % (auto) 0.0 Sodium 141 Potassium 5.5 H Chloride 108 Carbon Dioxide 25 Anion Gap 14 BUN 39 H Creatinine 2.59 H Estim Creat Clear Calc 31.1 Estimated GFR 25 POC Glucose 118 H Random Glucose 126 H Calcium 9.3 Ur Random Sodium Ur Random Potassium Urine Creatinine Peritoneal Tot Protein 2.5 Peritoneal Albumin 1.8 06/07/23 06/07/23 06/07/23 11:05 16:15 20:35 WBC RBC Hgb Hct MCV MCH MCHC RDW Plt Count MPV Absolute Nucleated RBC Nucleated RBC % (auto) Sodium Potassium Chloride Carbon Dioxide Anion Gap BUN Creatinine Estim Creat Clear Calc Estimated GFR POC Glucose 109 201 H 169 H Random Glucose Calcium Ur Random Sodium Ur Random Potassium Urine Creatinine Peritoneal Tot Protein Peritoneal Albumin 06/07/23 Unknown WBC RBC Hgb Hct MCV MCH MCHC RDW Plt Count MPV Absolute Nucleated RBC Nucleated RBC % (auto) Sodium Potassium Chloride Carbon Dioxide Anion Gap BUN Creatinine Estim Creat Clear Calc Estimated GFR POC Glucose Random Glucose Calcium Ur Random Sodium 35.0 Ur Random Potassium 55.6 Urine Creatinine 122.37 Peritoneal Tot Protein Peritoneal Albumin Microbiology Microbiology Results: Microbiology 06/04/23 20:02 Urine clean catch Urine Culture - Preliminary Yeast 06/05/23 10:05 Peritoneal Fluid Gram Stain - Final 06/05/23 10:05 Peritoneal Fluid Routine Culture - Final No growth after 2 days 06/05/23 10:05 Peritoneal Fluid Anaerobic Culture - Preliminary No growth to date. Procedures Date of Service Date of Service: 06/07/23 Assessment & Plan Assessment and plan (1) PENNY (acute kidney injury): Status: Acute Plan PENNY superimposed on CKD 3 most likely had tubular injury. No obstruction; No reason to suspect GN and or AIN Shall medically treat hyperkalemia 25% IV Albumin 25 Gram Q 6 X 3 days Continue with rest of current supportive care Progress Note: Quality Stroke Does the patient have a stroke diagnosis?: No
[2023-06-08 03:00] VITALS: BP 111/52; PULSE 66; RESP 16; TEMP 36.4; O2SAT 93
[2023-06-08] MEDS: Albumin Human 25 % 100 ML IV ×4 (03:28→21:59)
[2023-06-08] MEDS: Gabapentin 100 MG CAPSULE PO ×4 (03:45→21:59)
--- NOTE | 2023-06-08 04:00 | PC.NURSE ---
pt had a IV on the left thumb, it was leaking and red. 4 nurses tried on him. pt dimas. arm has multiple bruises and scabbing. pt asking for the long stay IV to insert, but no one trained to use ultrasound guide iv insertion at [employer] shift [employer]. provided warm pack on the arm. pt was asking for gabapentin to relax from multiple times of pocking. notified, new order received gabapentin 100 mg. given by this nurse. will cont. monitor.
[2023-06-08] MEDS: Omeprazole 20 MG CAPSULE.DR PO (06:18)
[2023-06-08] MEDS: Midodrine HCl 10 MG TABLET PO ×3 (06:18→17:16)
[2023-06-08 07:00] VITALS: BP 102/50; PULSE 74; RESP 17; TEMP 36.4; O2SAT 95
[2023-06-08 07:48] LABS: Glucose, Whole Blood 112 mg/dL (60-115)
[2023-06-08] MEDS: rifAXIMin 550 MG TABLET PO ×2 (08:28→21:59)
[2023-06-08] MEDS: Sertraline HCL 50 MG TABLET PO (08:28)
[2023-06-08] MEDS: Naltrexone HCl 50 MG TABLET PO (08:28)
[2023-06-08] MEDS: Thiamine HCL 100 MG TABLET PO (08:29)
[2023-06-08] MEDS: Folic Acid 1 MG TABLET PO (08:29)
[2023-06-08] MEDS: Sodium Bicarbonate 650 MG TABLET PO ×3 (08:29→21:59)
[2023-06-08] MEDS: 0.9 % Sodium Chloride Flush 3 ML SYRINGE IVFLUSH ×3 (08:29→21:59)
[2023-06-08] MEDS: Multivitamin TABLET 1 TAB PO (08:29)
[2023-06-08 11:00] VITALS: BP 99/51; PULSE 61; RESP 18; TEMP 36.2; O2SAT 92
[2023-06-08 11:27] LABS: Anion Gap 13 (12-20); Blood Urea Nitrogen 37 mg/dL (9-16); Calcium 9.2 mg/dL (8.4-10.2); Carbon Dioxide 23 mmol/L (22-29); Chloride 108 mmol/L (96-108); Creatinine Clr Calc Pharmacy 33.6; Estimated Glomerular Filt Rate 27; Glucose Random 117 mg/dL (60-115); Potassium 3.6 mmol/L (3.3-5.1); Sodium 140 mmol/L (135-145)
--- NOTE | 2023-06-08 11:39 | P.PNIM_ITS ---
Subjective Subjective Date of Service: 06/08/23 Interval History: seen and examined this morning follow up for ascites, PENNY. echo with cardiomyopathy Review of Systems Review of Systems: Yes all other systems are reviewed and are negative Constitutional Constitutional: Denies chills and Denies fever(s) Cardiovascular Cardiovascular: Denies chest pain, Denies palpitations, Denies dyspnea and Denies orthopnea Respiratory Respiratory: Denies cough and Denies dyspnea Endocrine Endocrine: Denies palpitations Physical Exam 2 Vital Signs: Vital Signs: Last Vital Signs Temp 97.2 F 06/08/23 11:00 Pulse 61 06/08/23 11:00 Resp 18 06/08/23 11:00 BP 99/51 L 06/08/23 11:00 Pulse Ox 92 06/08/23 11:00 O2 Del Method Room Air 06/08/23 11:00 BMI result Body Mass Index 34.2 Appearing in no acute distress lung sounds are clear to auscultation heart regular rate rhythm, clear S1, S2 positive bowel sounds, abdomen is soft, nontender neuro patient is alert x3, no focal deficits Objective Data Active Medications Acetaminophen (Acetaminophen 325 Mg Tablet) 650 mg PO DAILY PRN PRN Reason: Fever Bisacodyl (Bisacodyl 10 Mg Supp.Rect) 10 mg NC DAILY PRN PRN Reason: Constipation Dextrose (Dextrose 50 % 25 Gm/50 Ml Syringe) 25 gm IVPUSH Q15M PRN; Protocol PRN Reason: per Hypoglycemia Standing Ord. Folic Acid (Folic Acid 1 Mg Tablet) 1 mg PO DAILY [facility] Last Admin: 06/08/23 08:29 Dose: 1 mg Documented By: MACARIO Gabapentin (Gabapentin 100 Mg Capsule) 100 mg PO TID [facility] Last Admin: 06/08/23 08:28 Dose: 100 mg Documented By: MACARIO Glucose (Glucose Gel 15 Gm Gel..Gram.) 15 gm PO Q15M PRN; Protocol PRN Reason: per Hypoglycemia Standing Ord. Albumin Human (Kedbumin 25 %) 100 mls @ 100 mls/hr IV Q6H [facility] Last Infusion: 06/08/23 09:51 Dose: Infused Documented By: MACARIO Insulin Human Lispro (Insulin Lispro 100 Unit/Ml 3 Ml Vial) 0 unit SUBCUT QIDACHS [facility]; Protocol Last Admin: 06/08/23 08:04 Dose: Not Given Documented By: MACARIO Non-Admin Reason: No Insulin Coverage Lactulose (Lactulose 20 Gm/30 Ml Solution) 30 gm PO TID [facility] Last Admin: 06/08/23 08:33 Dose: Not Given Documented By: MACARIO Non-Admin Reason: Patient Refused Magnesium Hydroxide (Milk Of Magnesia 30 Ml Oral.Susp) 400 ml PO DAILY PRN PRN Reason: Constipation Melatonin (Melatonin 3 Mg Tablet) 3 mg PO BEDTIME [facility] Last Admin: 06/07/23 20:56 Dose: 3 mg Documented By: BONNIE Midodrine (Midodrine Hcl 10 Mg Tablet) 10 mg PO TID@0600,1200,1800 [facility] Last Admin: 06/08/23 06:18 Dose: 10 mg Documented By: BONNIE Multivitamins/Vitamin C (Multivitamin Tablet) 1 tab PO DAILY [facility] Last Admin: 06/08/23 08:29 Dose: 1 tab Documented By: MACARIO Naltrexone HCl (Naltrexone Hcl 50 Mg Tablet) 50 mg PO DAILY [facility] Last Admin: 06/08/23 08:28 Dose: 50 mg Documented By: MACARIO Omeprazole (Omeprazole 20 Mg Capsule.) 20 mg PO DAILY@0600 [facility] Last Admin: 06/08/23 06:18 Dose: 20 mg Documented By: BONNIE Ondansetron HCl (Ondansetron Hcl 4 Mg/2 Ml Vial) 4 mg IVPUSH Q8H PRN PRN Reason: Nausea and Vomiting Rifaximin (Rifaximin 550 Mg Tablet) 550 mg PO BID [facility] Last Admin: 06/08/23 08:28 Dose: 550 mg Documented By: MACARIO Senna (Sennosides 8.6 Mg Tablet) 17.2 mg PO BEDTIME PRN PRN Reason: Constipation Sertraline HCl (Sertraline Hcl 50 Mg Tablet) 50 mg PO DAILY [facility] Last Admin: 06/08/23 08:28 Dose: 50 mg Documented By: MACARIO Sodium Bicarbonate (Sodium Bicarbonate 650 Mg Tablet) 650 mg PO TID [facility] Last Admin: 06/08/23 08:29 Dose: 650 mg Documented By: MACARIO Sodium Biphosphate/Sodium Phosphate (Sodium Phosphate,[place]-Dibasic 133 Ml Enema) 118 ml NC DAILY PRN PRN Reason: Constipation Sodium Chloride (0.9 % Sodium Chloride Flush 3 Ml Syringe) 3 ml IVFLUSH QSHIFT [facility] Last Admin: 06/08/23 08:29 Dose: 3 ml Documented By: MACARIO Thiamine HCl (Thiamine Hcl 100 Mg Tablet) 100 mg PO DAILY [facility] Last Admin: 06/08/23 08:29 Dose: 100 mg Documented By: MACARIO Labs 06/07/23 05:39 06/08/23 10:29 Labs: Laboratory Results - last 24 hr 06/05/23 06/07/23 06/07/23 10:05 16:15 20:35 Hold Purple Top Anion Gap Estim Creat Clear Calc Estimated GFR POC Glucose 201 H 169 H Random Glucose Calcium Ur Random Sodium Ur Random Potassium Urine Creatinine Peritoneal Tot Protein 2.5 Peritoneal Albumin 1.8 06/07/23 06/08/23 06/08/23 Unknown 07:10 10:29 Hold Purple Top SEE NOTE Anion Gap 13 Estim Creat Clear Calc 33.6 Estimated GFR 27 POC Glucose 112 Random Glucose 117 H Calcium 9.2 Ur Random Sodium 35.0 Ur Random Potassium 55.6 Urine Creatinine 122.37 Peritoneal Tot Protein Peritoneal Albumin Microbiology Microbiology Results: Microbiology 06/05/23 10:05 Gram Stain - Final Peritoneal Fluid Routine Culture - Final No growth after 2 days Anaerobic Culture - Preliminary No growth to date. 06/04/23 20:02 Urine Culture - Preliminary Urine clean catch Yeast Assessment and Plan (1) Ascites: Status: Acute (2) PENNY (acute kidney injury): Status: Acute Plan 67-year-old gentleman [facility] with past medical history of alcoholic cirrhosis, chronic indwelling urine catheter, orthostatic hypotension on midodrine, GERD, diabetes mellitus type 2 on insulin, recently discharged from [facility] on May 11 due to PENNY and decompensated cirrhosis with ascites admitted for management of decompensated hepatic cirrhosis with ascites and acute kidney injury Acute kidney injury likely hepatorenal due to ascites reaccumulation nephrology following albumin q6h follow renal function Hyperkalemia. Resolved s/p lokelma follow BMP Recurrent ascites has history of underlying liver disease but per GI previous ascitic fluid analysis was not consistent with cirrhotic ascites which is consistent with his overall liver function profile with normal platelets and EGD at [facility] without any signs portal hypertension including gastropathy or varices. therapeutic and diagnostic paracentesis 06/04, albumin/protein pending, unable to calculate SAAG at this time. gram stain with no organisms, culture no growth to date. echo with evidence of cardiomyopathy, but clinically no evidence of CHF sodium restriction unlikely to tolerate diuretics at this time due to soft blood pressures Acute Gordon catheter associated UTI chronic indwelling Gordon catheter cultures growing yeast. Chronic hepatic encephalopathy normal ammonia. no asterixis on exam continue lactulose, rifaximin Orhtostatic hypotension 2/2 above continue midodrine insulin-dependent type 2 diabetes diabetic diet ss BPH with chronic obstructive uropathy continue Gordon catheter GERD PPI chronic anemia H/H stable DVT prophylaxis- scps Attending Dr. Jurado full code continue hospital stay for management of penny due to recurrent ascites requiring further workup to determine source and close monitoring of renal function and electrolyte levels as well as expert consultation Quality Stroke Does the patient have a stroke diagnosis?: No VTE Prior VTE?: No VTE Risk Level:: Medical - moderate - high VTE Device Contraindication: Treatment Not Indicated VTE Drug Contraindication: N/A - Med Ordered
[2023-06-08 11:49] LABS: Glucose, Whole Blood 110 mg/dL (60-115)
[2023-06-08 15:14] VITALS: BP 118/58; PULSE 54; RESP 20; TEMP 36.3; O2SAT 97
[2023-06-08 15:57] LABS: Glucose, Whole Blood 141 mg/dL (60-115)
[2023-06-08 19:00] VITALS: BP 120/60; PULSE 68; RESP 18; TEMP 36.2; O2SAT 98
[2023-06-08 21:08] LABS: Glucose, Whole Blood 146 mg/dL (60-115)
[2023-06-08] MEDS: Melatonin 3 MG TABLET PO (21:59)
[2023-06-08] MEDS: Lactulose 20 GM/30 ML SOLUTION 30 GM PO (21:59)
[2023-06-09] MEDS: Albumin Human 25 % 100 ML IV ×4 (02:50→23:32)
[2023-06-09 03:21] VITALS: BP 89/52; PULSE 59; RESP 16; TEMP 36.2; O2SAT 98
[2023-06-09 03:32] VITALS: BMI 27.5
[2023-06-09 03:43] VITALS: BP 102/55; PULSE 64; RESP 16
[2023-06-09] MEDS: Omeprazole 20 MG CAPSULE.DR PO (05:42)
[2023-06-09] MEDS: Midodrine HCl 10 MG TABLET PO ×3 (05:42→18:00)
[2023-06-09 07:17] VITALS: BP 108/59; PULSE 62; RESP 20; TEMP 36.2; O2SAT 97
[2023-06-09 07:41] LABS: Glucose, Whole Blood 98 mg/dL (60-115)
[2023-06-09] MEDS: Lactulose 20 GM/30 ML SOLUTION 30 GM PO ×3 (08:06→21:39)
[2023-06-09] MEDS: 0.9 % Sodium Chloride Flush 3 ML SYRINGE IVFLUSH ×3 (08:06→21:41)
[2023-06-09] MEDS: Sodium Bicarbonate 650 MG TABLET PO ×3 (08:08→21:40)
[2023-06-09] MEDS: Multivitamin TABLET 1 TAB PO (08:08)
[2023-06-09] MEDS: Thiamine HCL 100 MG TABLET PO (08:08)
[2023-06-09] MEDS: Sertraline HCL 50 MG TABLET PO (08:08)
[2023-06-09] MEDS: Folic Acid 1 MG TABLET PO (08:08)
[2023-06-09] MEDS: rifAXIMin 550 MG TABLET PO ×2 (08:08→21:40)
[2023-06-09] MEDS: Gabapentin 100 MG CAPSULE PO ×4 (08:08→21:40)
[2023-06-09] MEDS: Naltrexone HCl 50 MG TABLET PO (08:08)
--- NOTE | 2023-06-09 08:58 | P.PNIM_ITS ---
Subjective Subjective Date of Service: 06/09/23 Interval History: seen and examined this morning follow up for ascites, PENNY. echo with cardiomyopathy Review of Systems Review of Systems: Yes all other systems are reviewed and are negative Constitutional Constitutional: Denies chills and Denies fever(s) Cardiovascular Cardiovascular: Denies chest pain, Denies palpitations, Denies dyspnea and Denies orthopnea Respiratory Respiratory: Denies cough and Denies dyspnea Endocrine Endocrine: Denies palpitations Physical Exam 2 Vital Signs: Vital Signs: Last Vital Signs Temp 97.2 F 06/09/23 07:17 Pulse 62 06/09/23 07:17 Resp 20 06/09/23 07:17 BP 108/59 L 06/09/23 07:17 Pulse Ox 97 06/09/23 07:17 O2 Del Method Room Air 06/09/23 07:17 BMI result Body Mass Index 27.5 Appearing in no acute distress lung sounds are clear to auscultation heart regular rate rhythm, clear S1, S2 positive bowel sounds, abdomen is soft, nontender neuro patient is alert x3, no focal deficits Objective Data Active Medications Acetaminophen (Acetaminophen 325 Mg Tablet) 650 mg PO DAILY PRN PRN Reason: Fever Bisacodyl (Bisacodyl 10 Mg Supp.Rect) 10 mg NC DAILY PRN PRN Reason: Constipation Dextrose (Dextrose 50 % 25 Gm/50 Ml Syringe) 25 gm IVPUSH Q15M PRN; Protocol PRN Reason: per Hypoglycemia Standing Ord. Folic Acid (Folic Acid 1 Mg Tablet) 1 mg PO DAILY [facility] Last Admin: 06/09/23 08:08 Dose: 1 mg Documented By: OANH Gabapentin (Gabapentin 100 Mg Capsule) 100 mg PO TID [facility] Last Admin: 06/09/23 08:08 Dose: 100 mg Documented By: OANH Glucose (Glucose Gel 15 Gm Gel..Gram.) 15 gm PO Q15M PRN; Protocol PRN Reason: per Hypoglycemia Standing Ord. Albumin Human (Kedbumin 25 %) 100 mls @ 100 mls/hr IV Q6H [facility] Last Infusion: 06/09/23 03:58 Dose: Infused Documented By: BONNIE Insulin Human Lispro (Insulin Lispro 100 Unit/Ml 3 Ml Vial) 0 unit SUBCUT QIDACHS [facility]; Protocol Last Admin: 06/09/23 07:34 Dose: Not Given Documented By: OANH Non-Admin Reason: No Insulin Coverage Lactulose (Lactulose 20 Gm/30 Ml Solution) 30 gm PO TID [facility] Last Admin: 06/09/23 08:06 Dose: 30 gm Documented By: OANH Magnesium Hydroxide (Milk Of Magnesia 30 Ml Oral.Susp) 400 ml PO DAILY PRN PRN Reason: Constipation Melatonin (Melatonin 3 Mg Tablet) 3 mg PO BEDTIME [facility] Last Admin: 06/08/23 21:59 Dose: 3 mg Documented By: BONNIE Midodrine (Midodrine Hcl 10 Mg Tablet) 10 mg PO TID@0600,1200,1800 [facility] Last Admin: 06/09/23 05:42 Dose: 10 mg Documented By: BONNIE Multivitamins/Vitamin C (Multivitamin Tablet) 1 tab PO DAILY [facility] Last Admin: 06/09/23 08:08 Dose: 1 tab Documented By: OANH Naltrexone HCl (Naltrexone Hcl 50 Mg Tablet) 50 mg PO DAILY [facility] Last Admin: 06/09/23 08:08 Dose: 50 mg Documented By: OANH Omeprazole (Omeprazole 20 Mg Capsule.Dr) 20 mg PO DAILY@0600 [facility] Last Admin: 06/09/23 05:42 Dose: 20 mg Documented By: BONNIE Ondansetron HCl (Ondansetron Hcl 4 Mg/2 Ml Vial) 4 mg IVPUSH Q8H PRN PRN Reason: Nausea and Vomiting Rifaximin (Rifaximin 550 Mg Tablet) 550 mg PO BID [facility] Last Admin: 06/09/23 08:08 Dose: 550 mg Documented By: OANH Senna (Sennosides 8.6 Mg Tablet) 17.2 mg PO BEDTIME PRN PRN Reason: Constipation Sertraline HCl (Sertraline Hcl 50 Mg Tablet) 50 mg PO DAILY [facility] Last Admin: 06/09/23 08:08 Dose: 50 mg Documented By: OANH Sodium Bicarbonate (Sodium Bicarbonate 650 Mg Tablet) 650 mg PO TID [facility] Last Admin: 06/09/23 08:08 Dose: 650 mg Documented By: OANH Sodium Biphosphate/Sodium Phosphate (Sodium Phosphate,[place]-Dibasic 133 Ml Enema) 118 ml NC DAILY PRN PRN Reason: Constipation Sodium Chloride (0.9 % Sodium Chloride Flush 3 Ml Syringe) 3 ml IVFLUSH QSHIFT [facility] Last Admin: 06/09/23 08:06 Dose: 3 ml Documented By: OANH Thiamine HCl (Thiamine Hcl 100 Mg Tablet) 100 mg PO DAILY [facility] Last Admin: 06/09/23 08:08 Dose: 100 mg Documented By: OANH Labs 06/07/23 05:39 06/08/23 10:29 Labs: Laboratory Results - last 24 hr 06/08/23 06/08/23 06/08/23 10:29 11:36 15:52 Hold Purple Top SEE NOTE Anion Gap 13 Estim Creat Clear Calc 33.6 Estimated GFR 27 POC Glucose 110 141 H Random Glucose 117 H Calcium 9.2 06/08/23 06/09/23 06/09/23 21:01 07:14 07:19 Hold Purple Top SEE NOTE Anion Gap Estim Creat Clear Calc Estimated GFR POC Glucose 146 H 98 Random Glucose Calcium Microbiology Microbiology Results: Microbiology 06/04/23 20:02 Urine Culture - Final Urine clean catch Yesy glabrata 06/05/23 10:05 Gram Stain - Final Peritoneal Fluid Routine Culture - Final No growth after 2 days Anaerobic Culture - Preliminary No growth to date. Assessment and Plan (1) Ascites: Status: Acute (2) PENNY (acute kidney injury): Status: Acute Plan 67-year-old [facility] with past medical history of alcoholic cirrhosis, chronic indwelling urine catheter, orthostatic hypotension on midodrine, GERD, diabetes mellitus type 2 on insulin, recently discharged from [facility] on May 11 due to PENNY and decompensated cirrhosis with ascites admitted for management of decompensated hepatic cirrhosis with ascites and acute kidney injury Depression pt requesting psychiatric consultation depression, ? bipolar diagnosis Acute kidney injury likely hepatorenal due to ascites reaccumulation nephrology following albumin q6h follow renal function Hyperkalemia. Resolved s/p lokelma follow BMP Recurrent ascites has history of underlying liver disease but per GI previous ascitic fluid analysis was not consistent with cirrhotic ascites which is consistent with his overall liver function profile with normal platelets and EGD at [facility] without any signs portal hypertension including gastropathy or varices. therapeutic and diagnostic paracentesis 06/04, albumin/protein pending, unable to calculate SAAG at this time. gram stain with no organisms, culture no growth to date. echo with evidence of cardiomyopathy, but clinically no evidence of CHF sodium restriction unlikely to tolerate diuretics at this time due to soft blood pressures Acute Gordon catheter associated UTI chronic indwelling Gordon catheter cultures growing yeast. Chronic hepatic encephalopathy normal ammonia. no asterixis on exam continue lactulose, rifaximin Orhtostatic hypotension 2/2 above continue midodrine insulin-dependent type 2 diabetes diabetic diet ss BPH with chronic obstructive uropathy continue Gordon catheter GERD PPI chronic anemia H/H stable DVT prophylaxis- scps Attending Dr. Jurado full code continue hospital stay for management of penny due to recurrent ascites requiring further workup to determine source and close monitoring of renal function and electrolyte levels as well as expert consultation Quality Stroke Does the patient have a stroke diagnosis?: No VTE Prior VTE?: No VTE Risk Level:: Medical - moderate - high VTE Device Contraindication: Treatment Not Indicated VTE Drug Contraindication: N/A - Med Ordered
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
--- NOTE | 2023-06-09 10:06 | PC.NURSE ---
Pharmacy out of 100ml bottles of albumin, 2, 50ml bags given, overridden in Pyxis.
[2023-06-09 11:18] LABS: Glucose, Whole Blood 121 mg/dL (60-115)
[2023-06-09 12:29] LABS: Anion Gap 14 (12-20); Blood Urea Nitrogen 35 mg/dL (9-16); Calcium 9.4 mg/dL (8.4-10.2); Carbon Dioxide 23 mmol/L (22-29); Chloride 108 mmol/L (96-108); Creatinine Clr Calc Pharmacy 29.8; Estimated Glomerular Filt Rate 29; Glucose Random 98 mg/dL (60-115); Potassium 3.4 mmol/L (3.3-5.1); Sodium 142 mmol/L (135-145)
[2023-06-09 13:43] LABS: Ammonia 18 umol/L (13-55)
[2023-06-09 15:31] VITALS: BP 105/59; PULSE 64; RESP 24; TEMP 36.3; O2SAT 100
[2023-06-09 16:28] LABS: Glucose, Whole Blood 143 mg/dL (60-115)
--- NOTE | 2023-06-09 16:31 | PC.NURSE ---
Scanned Albumin, would not scan the medication. We do not have 100ml Albumin at this moment, took 2 50ml bottles and hung each one seperately
[2023-06-09 19:21] VITALS: BP 113/54; PULSE 70; RESP 17; TEMP 36.6; O2SAT 93
[2023-06-09 20:22] LABS: Glucose, Whole Blood 198 mg/dL (60-115)
[2023-06-09] MEDS: Melatonin 3 MG TABLET PO (21:39)
[2023-06-09] MEDS: Insulin Lispro 100 UNIT/ML 3 ML VIAL SUBCUT (21:39)
[2023-06-09 23:00] VITALS: BP 120/59; RESP 18; TEMP 36.2
[2023-06-10] MEDS: OLANZapine 2.5 MG TABLET PO
[2023-06-10 03:00] VITALS: BP 109/58; PULSE 70; RESP 16; TEMP 36; O2SAT 96
--- NOTE | 2023-06-10 03:47 | PC.NURSE ---
pt IV was leaking and pain at site. called to electronics supervisor to put it in the ultrasound guide IV on right upper arm. therefore, delayed albumin to give another factor that albumin is not available at that time for shortage. electronics supervisor have to go to PACU to get it. pt was requested extra gabapetin 100 mg and anxiety med in hour apart. notified it. new order given by this nurse. pt was happy with over all communications. will cont. monitor.
[2023-06-10] MEDS: Albumin Human 25 % 100 ML IV ×2 (04:23→13:02)
[2023-06-10] MEDS: Midodrine HCl 10 MG TABLET PO ×3 (05:48→16:39)
[2023-06-10] MEDS: Omeprazole 20 MG CAPSULE.DR PO (05:48)
[2023-06-10 07:00] VITALS: BP 104/54; PULSE 62; RESP 18; TEMP 36.4; O2SAT 95
[2023-06-10 07:51] LABS: Glucose, Whole Blood 110 mg/dL (60-115)
[2023-06-10 08:24] LABS: Anion Gap 13 (12-20); Blood Urea Nitrogen 33 mg/dL (9-16); Calcium 9.4 mg/dL (8.4-10.2); Carbon Dioxide 24 mmol/L (22-29); Chloride 110 mmol/L (96-108); Creatinine Clr Calc Pharmacy 28.2; Estimated Glomerular Filt Rate 27; Glucose Random 118 mg/dL (60-115); Potassium 3.3 mmol/L (3.3-5.1); Sodium 144 mmol/L (135-145)
[2023-06-10] MEDS: Sertraline HCL 100 MG TABLET PO (09:51)
[2023-06-10] MEDS: rifAXIMin 550 MG TABLET PO (09:51)
[2023-06-10] MEDS: Multivitamin TABLET 1 TAB PO (09:51)
[2023-06-10] MEDS: Sodium Bicarbonate 650 MG TABLET PO ×2 (09:51→16:40)
[2023-06-10] MEDS: Gabapentin 100 MG CAPSULE PO ×2 (09:51→16:40)
[2023-06-10] MEDS: Naltrexone HCl 50 MG TABLET PO (09:51)
[2023-06-10] MEDS: 0.9 % Sodium Chloride Flush 3 ML SYRINGE IVFLUSH (09:51)
[2023-06-10] MEDS: Lactulose 20 GM/30 ML SOLUTION 30 GM PO ×2 (09:51→16:39)
[2023-06-10] MEDS: Thiamine HCL 100 MG TABLET PO (09:51)
[2023-06-10] MEDS: Folic Acid 1 MG TABLET PO (09:51)
--- NOTE | 2023-06-10 10:09 | P.PNNP_ITS ---
Subjective Subjective Date of Service: 06/10/23 Interval history: seen and examined this morning;followed up for PENNY on CKD; echo with cardiomyopathy Physical Exam 2 Vital Signs: Vital Signs: Last Vital Signs Temp 97.6 F 06/10/23 07:00 Pulse 62 06/10/23 07:00 Resp 18 06/10/23 07:00 BP 104/54 L 06/10/23 07:00 Pulse Ox 95 06/10/23 07:00 O2 Del Method Room Air 06/10/23 07:00 BMI result Body Mass Index 27.5 Const: General: comfortable and no acute distress HEENT: Head: Yes normocephalic Mouth: Normal oral and palatal mucosa present Eyes: EOM: EOMs intact bilaterally Neck: Neck: Yes supple Resp: Auscultation: clear to auscultation bilaterally Cardio: Jugular venous distension: no JVD Rate: regular rate GI: Palpation (GI): Soft to palpation Auscultation: normal bowel sounds : General: Yes no CVA tenderness Back/Spine/Pelvis: Back: no CVA tenderness Skin: General skin exam: no rashes or lesions noted Neuro: General: moves all extremities Objective Data Labs 06/07/23 05:39 06/10/23 07:58 Labs: Laboratory Results - last 24 hr 06/09/23 06/09/23 06/09/23 07:14 11:13 13:25 Sodium 142 Potassium 3.4 Chloride 108 Carbon Dioxide 23 Anion Gap 14 BUN 35 H Creatinine 2.26 H Estim Creat Clear Calc 29.8 Estimated GFR 29 POC Glucose 121 H Random Glucose 98 Calcium 9.4 Ammonia 18 06/09/23 06/09/23 06/10/23 16:23 19:24 07:29 Sodium Potassium Chloride Carbon Dioxide Anion Gap BUN Creatinine Estim Creat Clear Calc Estimated GFR POC Glucose 143 H 198 H 110 Random Glucose Calcium Ammonia 06/10/23 07:58 Sodium 144 Potassium 3.3 Chloride 110 H Carbon Dioxide 24 Anion Gap 13 BUN 33 H Creatinine 2.39 H Estim Creat Clear Calc 28.2 Estimated GFR 27 POC Glucose Random Glucose 118 H Calcium 9.4 Ammonia Microbiology Microbiology Results: Microbiology 06/05/23 10:05 Peritoneal Fluid Gram Stain - Final 06/05/23 10:05 Peritoneal Fluid Routine Culture - Final No growth after 2 days 06/05/23 10:05 Peritoneal Fluid Anaerobic Culture - Preliminary No growth to date. 06/04/23 20:02 Urine clean catch Urine Culture - Final Yesy glabrata Procedures Date of Service Date of Service: 06/10/23 Assessment & Plan Time Spent With Patient Time: PENNY superimposed on CKD 3 most likely had tubular injury Has HRS 2 at baseline No obstruction; No reason to suspect GN and or AIN Received IV Albumin & paracentesis during this admission Continue with rest of current supportive care for now Progress Note: Quality Stroke Does the patient have a stroke diagnosis?: No
[2023-06-10 11:15] LABS: Glucose, Whole Blood 109 mg/dL (60-115)
[2023-06-10 11:25] VITALS: BP 104/53; PULSE 63; RESP 14; TEMP 36.3; O2SAT 93
--- NOTE | 2023-06-10 12:05 | PM.DS ---
DS: Providers Provider Date of Service: 06/10/23 Date of admission: 06/04/23 20:30 Primary care physician: Sharon Lopez MD Consults: 06/04/23 20:37 Consult to Gastroenterology Routine Consulting Provider: Belinda Suazo Reason for consultation: recurrent ascites, decompensated cirrhosis 06/07/23 07:10 Consult to Cardiology Routine Consulting Provider: [facility] [place] [facility] Reason for consultation: cardiomyopathy; recurrent ascites Has provider been notified: No 06/07/23 11:08 Consult to Nephrology Routine Consulting Provider: [facility] Reason for consultation: penny, hyperkalemia Has provider been notified: No 06/09/23 08:59 Consult to Psychiatry Routine Consulting Provider: [facility] Reason for consultation: pt request, depression , ? bipolar diagnosis 06/10/23 10:46 Consult to Wound Care Routine Reason for consultation: redness to groin/buttocks Has provider been notified: No DS: Diagnosis Discharge Diagnosis (1) Depression: Status: Acute DS: Summary Hospital Course Hospital Course: History and physical as per admitting provider. 67-year-old gentleman resident of [facility] with past medical history of alcoholic cirrhosis, chronic indwelling urine catheter, orthostatic hypotension on midodrine, GERD, diabetes mellitus type 2 on insulin, recently discharged from [facility] on May 11 due to PENNY and decompensated cirrhosis with ascites presented to the ED today for evaluation after staff reported fall and confusion. The patient is oriented x3, unsure why he is here. He states he fel earlier but denies headstrike or LOC. He states he does not feel confused. He tells me he has had increased social stresses and is interested in speaking with someone to help him with this. He is answering questions appropriately, asking what he can do to prevent the reaccumulation of his ascites. He denies any pain or dyspnea. NO fevers, chills, recent illness. No abd pain, n/v, urinary symptoms. Last paracentesis 05/20, draining 5L. On arrival, blood pressures soft, but otherwise WNL. No leukocytosis. Stable normocytic anemia with H/H 8.1/25.0%, platelets 146. Creatinine 2.23, baseline around 1.6. BUN 39. Electrolyte levels normal. Total bilirubin 1.7, direct bilirubin 0.6. AST/ALT within normal limits. Ammonia level 19. Urinalysis significant for 3+ leukocytes, negative nitrites, 3+ blood, positive urinary sediment, 3+ bacteria. Head CT negative for any acute intracranial abnormality but shows mild microvascular ischemic changes. EKG shows sinus rhythm with first-degree AV angie block, PACs and aberrant conduction with rate 75. No acute ST/T-wave abnormality. In ED, has been given 25% albumin x2, 2 g magnesium, gentle IV fluids, and 100 mg gabapentin. He will be admitted for further management of decompensated cirrhosis with ascites and acute kidney injury. 67-year-old man treated for Recurrent ascites. Status post paracentesis x2 had a total of 7 L removed. Seen and evaluated by Gastroenterology. Overall clinical assessment are not suggestive of cirrhotic ascites. Patient appears to have advanced fibrosis versus underlying cirrhosis secondary to alcohol use plus or minus congestive hepatopathy from cardiomyopathy. Overall based on ascites fluid analysis it appears symptoms related to cardiac ascites. Echocardiogram showed evidence of cardiomyopathy but no clinical evidence of CHF. May add some point require further paracentesis. Question was to start spironolactone at some point but due to his PENNY on CKD was not warranted at this time but patient will follow up with Nephrology outpatient. Patient to continue rifaximin and lactulose. Plan is to transfer patient back to short-term rehab. Depression. Seen by psychiatric provider during hospitalization. Sertraline increased to 100 mg Acute kidney injury. Seen and evaluated by Nephrology. Likely hepatorenal due to ascites reaccumulation. Treated with IV albumin. No obstruction and no reason to suspect GN or AIN. Hyperkalemia. Resolved. s/p lokelma Acute Gordon catheter associated UTI. Urine culture growing yeast, antibiotics stopped Chronic hepatic encephalopathy. normal ammonia. no asterixis on exam, continue lactulose, rifaximin Orhtostatic hypotension secondary to ascites, UTI. Continue midodrine insulin-dependent type 2 diabetes. Continue home medications BPH with chronic obstructive uropathy continue Gordon catheter GERD PPI chronic anemia H/H stable, did not require blood transfusion during hospitalization Time Attestation Discharge Coordination Time (in mins): 47 Quality: Safe Use of Opioids Does Pt have an Active Cancer Diagnosis on the Problem List?: No Quality: Stroke Does the patient have a stroke diagnosis?: No Physical Exam Vital Signs: Vital Signs: Last Vital Signs Temp 97.4 F 06/10/23 11:25 Pulse 63 06/10/23 11:25 Resp 14 06/10/23 11:25 BP 104/53 L 06/10/23 11:25 Pulse Ox 93 06/10/23 11:25 O2 Del Method Room Air 06/10/23 11:25 BMI result Body Mass Index 27.5 Appearing in no acute distress head is normocephalic atraumatic eyes pupils are PERRLA sclera is anicteric mouth throat mucous membranes are intact and moist neck is supple no lymphadenopathy, no JVD noted lung sounds are clear to auscultation heart regular rate rhythm, clear S1, S2 positive bowel sounds, abdomen is soft, nontender neuro patient is alert x3, intermittent confusion DS: Data Data Completed and Pending Completed studies during hospitalization [Text1]: Procedures Drainage of Peritoneal Cavity with Drainage Device, Percutaneous Approach (05/20/23) Pending studies at discharge: Pending at discharge 06/05/23 10:05 Cytology [PTH] Routine Labs on day of discharge: Laboratory Results - last 24 hr 06/09/23 06/09/23 06/09/23 07:14 13:25 16:23 Sodium 142 Potassium 3.4 Chloride 108 Carbon Dioxide 23 Anion Gap 14 BUN 35 H Creatinine 2.26 H Estim Creat Clear Calc 29.8 Estimated GFR 29 POC Glucose 143 H Random Glucose 98 Calcium 9.4 Ammonia 18 06/09/23 06/10/23 06/10/23 19:24 07:29 07:58 Sodium 144 Potassium 3.3 Chloride 110 H Carbon Dioxide 24 Anion Gap 13 BUN 33 H Creatinine 2.39 H Estim Creat Clear Calc 28.2 Estimated GFR 27 POC Glucose 198 H 110 Random Glucose 118 H Calcium 9.4 Ammonia 06/10/23 11:10 Sodium Potassium Chloride Carbon Dioxide Anion Gap BUN Creatinine Estim Creat Clear Calc Estimated GFR POC Glucose 109 Random Glucose Calcium Ammonia Discharge Plan Discharge Anticipated Discharge Date/Time: 06/10/23 12:00 Patient Disposition: Xfer [facility] Discharge Diagnosis: Acute kidney injury Hyperkalemia Recurrent ascites Orthostatic hypotension Referrals: Sharon Morris MD [Primary Care Provider] - 1 Week Discharge Medications: New sertraline 100 mg Tablet 100 mg PO DAILY Qty: 30 0RF Continued multivitamin Tablet 1 tab PO DAILY acetaminophen 325 mg Tablet 650 mg PO DAILY PRN (Reason: Fever) naltrexone 50 mg Tablet 50 mg PO DAILY thiamine HCl (vitamin B1) 100 mg tablet 100 mg PO DAILY melatonin 3 mg Tablet 3 mg PO BEDTIME pantoprazole 40 mg tablet,delayed release (DR/EC) 40 mg PO DAILY@0600 folic acid 1 mg tablet 1 mg PO DAILY gabapentin 100 mg capsule 100 mg PO TID midodrine 10 mg tablet 10 mg PO TID@0600,1200,1800 lactulose 10 gram/15 mL solution 45 ml PO TID Rx Instructions: HOLD FOR THREE OR MORE LOOSE STOOLS Xifaxan 550 mg tablet 550 mg PO BID sodium bicarbonate 650 mg Tablet 650 mg PO TID Qty: 90 0RF ondansetron HCl 4 mg tablet 4 mg PO Q4H PRN (Reason: nausea/vomting) magnesium hydroxide [Milk of Magnesia] 400 mg/5 mL Suspension 400 ml PO DAILY PRN (Reason: Constipation) Rx Instructions: for no BM in 3 days bisacodyl 10 mg Suppository 10 mg DE DAILY PRN (Reason: Constipation) Rx Instructions: if milk of magnesia not effective Fleet Enema 19-7 gram/118 mL Enema 118 ml DE DAILY PRN (Reason: Constipation) Rx Instructions: when ducolax not effective insulin lispro [Admelog U-100 Insulin lispro] 100 unit/mL Solution See Protocol subcut QIDACHS Qty: 10 0RF Protocol: Insulin Correction Scale Less than or equal to 110 ---- Give (units): 0 111 to 150 Give (units): 0 151 to 200 Give (units): 2 201 to 250 Give (units): 4 251 to 300 Give (units): 6 301 to 350 Give (units): 8 Greater than 350 Give (units): 10 Call MD if Blood Glucose > : 350 Discontinued sertraline 50 mg tablet 50 mg PO DAILY Discharge Orders: Discharge Order (Routine); Ordered 06/10/23 Ordered By: Debbie Iglesias Diet: Advance to usual diet Activity on Discharge: As tolerated Stand Alone Forms: Patient Portal Discharge page Care Plan Goals: Complete resolution of symptoms Health Concerns: Acute kidney injury Hyperkalemia Recurrent ascites Orthostatic hypotension Plan of Treatment: Follow-up with primary care provider as needed Take all medications as prescribed Assessment: See discharge summary
[2023-06-10 15:24] VITALS: BP 99/54; PULSE 58; RESP 16; TEMP 36.3; O2SAT 96
[2023-06-10 16:21] LABS: Glucose, Whole Blood 130 mg/dL (60-115)
== END 2023-06-10 17:09 | disposition skilled nursing facility (03) | DRG 432 ==
LOC: HO.ED 16:08 → HO.EDOVER 20:52 → HO.S3 06-05 07:55
PROVIDERS: Emergency Medicine; Internal Medicine; Physician Assistant Medical; Physician Assistant Surgical; Admitting Provider Physician Assistant; Emergency Provider Emergency Medicine; PCP Internal Medicine; Visit Provider Nurse Practitioner Acute Care
DX: K70.31 Alcoholic cirrhosis of liver with ascites (principal); K76.7 Hepatorenal syndrome; T83.511A Infection and inflammatory reaction due to indwelling urethral catheter, initial encounter; N13.8 Other obstructive and reflux uropathy; I42.6 Alcoholic cardiomyopathy; N17.9 Acute kidney failure, unspecified; B37.49 Other urogenital candidiasis; F11.21 Opioid dependence, in remission; E87.5 Hyperkalemia; F32.A Depression, unspecified; N40.1 Benign prostatic hyperplasia with lower urinary tract symptoms; K76.82 Hepatic encephalopathy; D63.1 Anemia in chronic kidney disease; K21.9 Gastro-esophageal reflux disease without esophagitis; I95.1 Orthostatic hypotension; N18.30 Chronic kidney disease, stage 3 unspecified; E11.22 Type 2 diabetes mellitus with diabetic chronic kidney disease; Y73.8 Miscellaneous gastroenterology and urology devices associated with adverse incidents, not elsewhere classified; Z87.891 Personal history of nicotine dependence; Z79.4 Long term (current) use of insulin; Z79.899 Other long term (current) drug therapy
CPT/HCPCS: 36415; 49083; 70450; 80048; 80053; 81001; 82042; 82140; 82248; 82570; 82947; 84133; 84157; 84300; 85025; 85027; 85610; 85730; 87070; 87073; 87086; 87088; 87205; 88112; 89051; 93005; 93306; 97162; 97530; 99285; C1758; J0696; J3475; P9047; Q9957

== ENCOUNTER → 2023-06-04 12:25 | Outpatient (BNV) | payer MEDICARE, SELFPAY | PROVIDERS: Admitting Provider Physician Assistant; Emergency Provider Emergency Medicine; PCP Internal Medicine; Visit Provider Internal Medicine Cardiovascular Disease | DX: R94.31 Abnormal electrocardiogram [ECG] [EKG] (principal) | CPT/HCPCS: 93010 ==

== ENCOUNTER 2023-06-04 20:30 | Outpatient (BNV) | payer MEDICARE, SELFPAY | END 2023-06-05 15:36 | PROVIDERS: Admitting Provider Physician Assistant; Emergency Provider Emergency Medicine; PCP Internal Medicine; Visit Provider Physician Assistant Surgical | DX: R18.8 Other ascites (principal); N17.9 Acute kidney failure, unspecified | CPT/HCPCS: 49083 ==

== ENCOUNTER 2023-06-04 20:30 | Outpatient (BNV) | payer MEDICARE, SELFPAY | END 2023-06-06 07:00 | PROVIDERS: Admitting Provider Physician Assistant; Emergency Provider Emergency Medicine; PCP Internal Medicine; Visit Provider Internal Medicine Cardiovascular Disease | DX: I35.8 Other nonrheumatic aortic valve disorders (principal) | CPT/HCPCS: 93306 ==

== ENCOUNTER → 2023-06-04 20:30 | Outpatient (BNV) | payer MEDICARE, SELFPAY | PROVIDERS: Admitting Provider Physician Assistant; Emergency Provider Emergency Medicine; PCP Internal Medicine; Visit Provider Internal Medicine Nephrology | DX: N17.9 Acute kidney failure, unspecified (principal); N18.30 Chronic kidney disease, stage 3 unspecified; E87.5 Hyperkalemia | CPT/HCPCS: 99232 ==

== ENCOUNTER → 2023-06-04 20:30 | Outpatient (BNV) | payer MEDICARE, SELFPAY | PROVIDERS: Admitting Provider Physician Assistant; Emergency Provider Emergency Medicine; PCP Internal Medicine; Visit Provider Internal Medicine | DX: N17.9 Acute kidney failure, unspecified (principal); K74.60 Unspecified cirrhosis of liver; K70.31 Alcoholic cirrhosis of liver with ascites; I42.9 Cardiomyopathy, unspecified | CPT/HCPCS: 99223 ==

== ENCOUNTER → 2023-06-04 20:30 | Outpatient (BNV) | payer MEDICARE, SELFPAY | PROVIDERS: Admitting Provider Physician Assistant; Emergency Provider Emergency Medicine; PCP Internal Medicine; Visit Provider Internal Medicine Cardiovascular Disease | DX: I42.9 Cardiomyopathy, unspecified (principal); K74.60 Unspecified cirrhosis of liver | CPT/HCPCS: 99223 ==

== ENCOUNTER → 2023-06-04 20:30 | Outpatient (BNV) | payer MEDICARE, SELFPAY | PROVIDERS: Admitting Provider Physician Assistant; Emergency Provider Emergency Medicine; PCP Internal Medicine; Visit Provider Physician Assistant | DX: N17.9 Acute kidney failure, unspecified (principal); N18.30 Chronic kidney disease, stage 3 unspecified; F32.A Depression, unspecified | CPT/HCPCS: 99223; 99232; 99239 ==

== ENCOUNTER 2023-06-15 18:34 | Inpatient (IN) | payer MEDICARE, SELFPAY ==
--- NOTE | ~2023-06-15 | IR_ITS ---
CLINICAL HISTORY: PENNY. The patient presents to interventional radiology for placement of a temporary dialysis catheter for hemodialysis. PROCEDURES: 1. Real-time ultrasound-guided access into the right internal jugular vein after documentation of selected vessel patency, and permanent imaging storing in the patient record. 2. Placement of a 12 Fr, 20 cm non tunneled, dual-lumen hemodialysis catheter. Clinician: Russ Ramírez PA-C MEDICATIONS: -Lidocaine 1% 10 mL SQ. -Antibiotics: None -For additional details, please see nursing flowsheet. COMPLICATIONS: None. ESTIMATED BLOOD LOSS: <5 ml SPECIMENS: None FLUOROSCOPY TIME: 1.2 min PROCEDURE NOTE: The procedure, risks, benefits, and alternatives were carefully explained to patient's spouse, and informed consent was obtained. The patient was placed supine on the fluoroscopy table. A timeout was performed. The right neck and chest was prepped and draped in usual sterile fashion. Local anesthesia was administered to the access site with lidocaine. Under ultrasound guidance, the right internal jugular vein was accessed with a 5 Fr micropuncture set. A 0.035 in wire was advanced into the IVC. The tract was serially dilated. Over the wire, a 12 [place], 20 cm non-tunneled dialysis catheter was advanced, with the tip positioned at the cavoatrial junction. The catheter was tested, flushed, and sutured to the skin. A permanent fluoroscopic image of the chest was saved to PACS. The catheter ports were packed with heparin per routine protocol. The patient was stable after the procedure and was transferred to the medical floor. FINDINGS: 1. Patent right internal jugular vein. 2. Placement of a non- tunneled, dual-lumen hemodialysis catheter as above. 3. Catheter flushes and aspirates very well with a 10 mL syringe. No pneumothorax. IR/IR cvc insert non tunnel IMPRESSION: Placement of a non-tunneled hemodialysis catheter in the right internal jugular vein. PLAN: -The catheter may be used immediately. This procedure was performed by Russ Ramírez PA-C, and directly supervised by Dr. Chilel.
--- NOTE | ~2023-06-15 | XR_ITS ---
EXAMINATION: XR CHEST CLINICAL INFORMATION: Pain COMPARISON: 05/24/2023 TECHNIQUE: Frontal view of the chest was obtained. FINDINGS: Heart is enlarged. No acute vascular congestion. Low lung volumes are present with bibasal atelectasis. Old healed left-sided rib fractures seen. Postsurgical changes in the left humerus. XR/XR chest 1V IMPRESSION: No acute process
--- NOTE | ~2023-06-15 | IR_ITS ---
CLINICAL HISTORY: Patient requires long-term dialysis. The patient presents to interventional radiology for placement of a tunneled central venous catheter for hemodialysis. PROCEDURES: 1. Real-time ultrasound-guided access into the right internal jugular vein after documentation of selected vessel patency, and permanent imaging storing in the patient record. 2. Placement of a 14.5 fr 23 cm tunneled, dual-lumen hemodialysis catheter. Clinician: Russ Ramírez PA-C MEDICATIONS: -Fentanyl 25 mcg, Lidocaine 1% 10 mL SQ. -Antibiotics: Ancef -For additional details, please see nursing flowsheet. COMPLICATIONS: None. ESTIMATED BLOOD LOSS: <5 ml SPECIMENS: None FLUOROSCOPY TIME: 0.9 min PROCEDURE NOTE: The procedure, risks, benefits, and alternatives were carefully explained to patient, and written informed consent was obtained. The patient was placed supine on the fluoroscopy table. A timeout was performed. The right neck and chest was prepped and draped in usual sterile fashion. Local anesthesia was administered to the access site with lidocaine. Under ultrasound guidance, the right internal jugular vein was accessed with a 5 Fr micropuncture set. A 0.035 in wire was advanced to the IVC to maintain access during the tunneling process. Next, subcutaneous lidocaine was administered to the chest. Using blunt dissection, a subcutaneous tunnel was created that connects from the upper chest to the venotomy site. The dialysis catheter was pulled through the tunnel. The tract in the vein was dilated and a peel-away sheath was advanced over the wire. The catheter was advanced through the sheath, which was subsequently peeled away. The catheter was tested, flushed, and sutured to the skin with its tip in the high right atrium. A permanent fluoroscopic image of the chest was saved to PACS. The right neck temporary dialysis catheter was then removed. A dry dressing was applied to the right neck. The patient was stable after the procedure and was transferred back to the medical floor. This procedure was performed with a dedicated nurse and continuous monitoring of vital signs. FINDINGS: 1. Patent right internal jugular vein. 2. Placement of a tunneled, dual-lumen hemodialysis catheter as above. 3. Catheter flushes and aspirates very well with a 10 mL syringe. No pneumothorax. IR/IR cvc insert central tunnel IMPRESSION: 1. Placement of a tunneled hemodialysis catheter in the right internal jugular vein. 2. Removal of the right neck non-tunneled hemodialysis catheter. PLAN: -The catheter may be used immediately. This procedure was performed by Russ Ramírez PA-C, and directly supervised by Dr. Chilel.
--- NOTE | ~2023-06-15 | US_ITS ---
Ultrasound paracentesis History: Ascites. Risks and benefits and possible complications were discussed with the patient and consent form was signed. A safe pocket of ascitic fluid was identified using ultrasound guidance, and the overlying skin was marked. The abdomen prepped and draped in sterile fashion. 1% lidocaine was used as a local anesthetic. Using ultrasound guidance, a 5 fr catheter was placed into the ascitic pocket. 5.5 liters of yellow fluid was removed passively. The catheter was then removed. A few client services representative images from before and after the examination were obtained. The procedure was performed by Russ Ramírez PA-C and supervised by Dr. Flynn. US/US paracentesis abd w/image Impression: Ultrasound-guided paracentesis as described above. No immediate complications
--- NOTE | ~2023-06-15 | US_ITS ---
Ultrasound paracentesis History: Ascites. Risks and benefits and possible complications were discussed with the patient and consent form was signed. A safe pocket of ascitic fluid was identified using ultrasound guidance, and the overlying skin was marked. The abdomen prepped and draped in sterile fashion. 1% lidocaine was used as a local anesthetic. Using ultrasound guidance, a 5 fr catheter was placed into the ascitic pocket. 5.0 liters of yellow fluid was removed passively. The catheter was then removed. A few technical account representative images from before and after the examination were obtained. The procedure was performed by Russ Ramírez PA-C and supervised by Dr. Chilel. US/US paracentesis abd w/image Impression: Ultrasound-guided paracentesis as described above. No immediate complications
--- NOTE | ~2023-06-15 | US_ITS ---
EXAMINATION: US ABDOMEN LIMITED CLINICAL INFORMATION: Ascites check, liver disease. COMPARISON: Ultrasound paracentesis 06/05/2023. CT abdomen and pelvis 05/20/2023. TECHNIQUE: Real-time imaging of all 4 quadrants. US/US abdomen limited FINDINGS/IMPRESSION: Large amount of ascites in all the 4 abdominal quadrants.
--- NOTE | ~2023-06-15 | US_ITS ---
ULTRASOUND guided PARACENTESIS HISTORY: Ascites. Therapeutic and diagnostic drainage. Risks and benefits and possible complications were discussed with the patient and consent form was signed. A safe pocket of ascitic fluid was identified right lower quadrant using ultrasound guidance, and the overlying skin was marked, prepped and draped in sterile fashion. 1% lidocaine was used as a local anesthetic. Using ultrasound guidance, a 5 fr catheter was placed into the ascitic pocket. 5.0 liters of yellow fluid was removed passively per request of the ordering physician. The catheter was then removed. The fluid was sent for analysis. A few physician relations representative images from before and after the examination were obtained. The procedure was performed by Russ Ramírez PA-C and supervised by Dr. Pond. US/US paracentesis abd w/image IMPRESSION: Ultrasound-guided paracentesis as described above. No immediate complications.
--- NOTE | ~2023-06-15 | CT_ITS ---
EXAMINATION: CT ABDOMEN AND PELVIS WITHOUT CONTRAST CLINICAL INFORMATION: Abdominal pain. COMPARISON: Abdomen ultrasound from 06/16/2023. Abdomen CT from 05/20/2023. TECHNIQUE: Multidetector volumetric imaging was performed from the superior aspect of the liver through the pubic symphysis. Sagittal and coronal reformatted images were obtained on the technologist's workstation. This CT examination was performed using dose optimization techniques as appropriate, variously including the following: *Automated exposure control *Adjustment of mA and/or kV according to patient size (this includes techniques or standardized protocols for targeted exams where dose is matched to indication/reason for exam; i.e. extremities or head) *Use of iterative reconstruction technique DLP: 731 mGy-cm FINDINGS: LUNG BASES: Trace pleural effusions. Also, trace pericardial effusion is noted. HEPATOBILIARY: Cirrhotic liver has nodular surface contour. No evidence of hepatic mass on this noncontrast imaging examination. Gallbladder contains multiple small calcified stones. No evidence of choledocholithiasis or biliary ductal dilatation. PANCREAS: Chronic abuk-mj-aqgmcwyx atrophy. No edema, pancreatic ductal dilatation or mass. SPLEEN: Normal. ADRENAL GLANDS: Normal. KIDNEYS AND URETERS: Kidneys are normal in size. No renal stones or hydronephrosis. BLADDER: Decompressed by a Gordon catheter. The hyperdensity along the posterior bladder wall could represent minimal calcific debris. Query if there is any history of urinary stasis. BOWEL AND PERITONEUM: No dilated loops of bowel. The bowel is centrally displaced by the large volume of abdominal ascites. Streak artifact is caused by a metallic structure that appears to be layering along the posterior wall of the cecum. This structure measures up to 2.2 cm in length and has a hemispherical shape on the sagittal topogram. No pneumatosis intestinalis or pneumoperitoneum. ABDOMINAL WALL: Mild edema of subcutaneous tissues. VASCULATURE: Atherosclerosis of the abdominal aorta without aneurysm. No retroperitoneal hematoma. LYMPH NODES: No pathologic sized lymph nodes in the abdomen or pelvis. No inguinal lymphadenopathy. PELVIC VISCERA: Prostate gland is mildly enlarged and measures approximately 4.5 x 4 x 4.2 cm. MUSCULOSKELETAL: Old compression fracture of L1 vertebral body resulting in 45% anterior height loss. Mild levoscoliosis of the degenerated lumbar spine. Old healed bilateral rib fractures. Also, old fracture-nonunion of posterior left eighth rib. CT/CT abdomen pelvis wo IV con IMPRESSION: * Cirrhotic liver and large volume of ascites. * Cholelithiasis without evidence of choledocholithiasis or biliary tract obstruction. * A metallic structure from uncertain source (suspected to be a foreign body) appears to be layering along the posterior wall of the cecum. * Old compression fracture of the L1 vertebral body.
--- NOTE | ~2023-06-15 | CT_ITS ---
EXAMINATION: CT HEAD WITHOUT CONTRAST CLINICAL INFORMATION: Altered mental status COMPARISON: CT head from 06/04/2023 TECHNIQUE: Contiguous axial imaging was performed from the skull base to vertex without intravenous administration of contrast. This CT examination was performed using dose optimization techniques as appropriate, variously including the following: *Automated exposure control *Adjustment of mA and/or kV according to patient size (this includes techniques or standardized protocols for targeted exams where dose is matched to indication/reason for exam; i.e. extremities or head) *Use of iterative reconstruction technique DLP: 833 mGy-cm FINDINGS: There is no evidence of acute intracranial hemorrhage or territorial infarction. Chronic white matter small vessel ischemic changes. Cerebral atrophy with commensurate ventricular changes. No abnormal mass effect or midline shift is seen. Morales to white matter differentiation is well preserved. No extra-axial fluid collections are identified. The ventricles are normal in size. There is no abnormal attenuation within the brain parenchyma. The osseous structures and soft tissues are normal. The mastoid air cells and visualized portions of the paranasal sinuses are well aerated. CT/CT head/brain wo IV con IMPRESSION: 1. No acute intracranial pathology. 2. Chronic white matter small vessel ischemic changes.
[2023-06-15 18:39] VITALS: BP 114/64; BP 116/86; PULSE 101; PULSE 95; RESP 20; TEMP 36.5; O2SAT 100; O2SAT 99; BMI 27.8
--- NOTE | 2023-06-15 19:55 | ECG_ITS ---
Test Reason : ALTERED MENTAL STATE Blood Pressure : / mmHG Vent. Rate : 087 BPM Atrial Rate : 087 BPM P-R Int : 266 ms QRS Dur : 130 ms QT Int : 446 ms P-R-T Axes : 000 -69 096 degrees QTc Int : 536 ms Possible Sinus rhythm with 1st degree A-V block Left axis deviation Right bundle branch block Possible Lateral infarct (cited on or before 30-APR-2023) Inferior infarct (cited on or before 30-APR-2023) Abnormal ECG When compared with ECG of 04-JUN-2023 12:58, Aberrant conduction is no longer Present ST now depressed in Inferior leads T wave inversion less evident in Anterior leads Referred By: Risa Carroll Electronically Signed By:ANYI DURAN MD
--- NOTE | 2023-06-15 19:57 | ED.AMS ---
HPI - Altered Mental Status General Chief Complaint: Altered Mental Status Stated Complaint: ams Time Seen by Provider: 06/15/23 18:54 History of Present Illness HPI narrative: Patient is a 67-year-old male with a history of liver failure possible hepatorenal syndrome in the past. Presented today with having episodes of question seizure patient had episodes of tenseness noted by the nursing staff. During that time he is unresponsive. Patient denies having any issues. He has no chest pain he has no abdominal pain. No fever no chills. Has a history of ascites. Has a history of esophageal strictures. History of cardiomyopathy. Previous history of ETOH Related Data Home Medications ?Medication ?Instructions ?Recorded ?Confirmed acetaminophen 325 mg tablet 650 mg PO DAILY PRN Fever 04/30/23 06/04/23 folic acid 1 mg tablet 1 mg PO DAILY 04/30/23 06/04/23 gabapentin 100 mg capsule 100 mg PO TID 04/30/23 06/04/23 lactulose 10 gram/15 mL oral 45 ml PO TID 04/30/23 06/04/23 solution melatonin 3 mg tablet 3 mg PO BEDTIME Sleep 04/30/23 06/04/23 midodrine 10 mg tablet 10 mg PO TID@0600,1200,1800 04/30/23 06/04/23 multivitamin 1 tab PO DAILY 04/30/23 06/04/23 naltrexone 50 mg tablet 50 mg PO DAILY 04/30/23 06/04/23 pantoprazole 40 mg tablet,delayed 40 mg PO DAILY@0600 04/30/23 06/04/23 release rifaximin 550 mg tablet (Xifaxan) 550 mg PO BID 04/30/23 06/04/23 thiamine HCl (vitamin B1) 100 mg 100 mg PO DAILY 04/30/23 06/04/23 tablet bisacodyl 10 mg rectal suppository 10 mg WI DAILY PRN Constipation 05/20/23 06/04/23 magnesium hydroxide 400 mg/5 mL 400 ml PO DAILY PRN Constipation 05/20/23 06/04/23 oral suspension (Milk of Magnesia) ondansetron HCl 4 mg tablet 4 mg PO Q4H PRN nausea/vomting 05/20/23 06/04/23 sodium phosphates 19 gram-7 118 ml WI DAILY PRN Constipation 05/20/23 06/04/23 gram/118 mL enema (Fleet Enema) Previous Rx's ?Medication ?Instructions ?Recorded sodium bicarbonate 650 mg tablet 650 mg PO TID #90 tabs 05/13/23 insulin lispro 100 unit/mL See Protocol subcut QIDACHS #10 mL 05/30/23 subcutaneous solution (Admelog U-100 Insulin lispro) sertraline 100 mg tablet 100 mg PO DAILY #30 tabs 06/10/23 Allergies Allergy/AdvReac Type Severity Reaction Status Date / Time lisinopril Allergy Angioedema Verified 06/15/23 18:43 scallops Allergy Angioedema Verified 06/15/23 18:43 [facility], [facility] Past Medical History Medical History (Updated 06/15/23 @ 23:37 by Risa Carroll MD) GERD (gastroesophageal reflux disease) Hepatic encephalopathy Alcoholic cirrhosis Esophageal stricture Enlarged prostate Chronic indwelling Gordon catheter 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 Orthostatic hypotension Chronic liver disease Type 2 diabetes mellitus Social History Social History Household Members: None Housing: Shelter Do you presently have visiting nurse or other home services: No Alcohol intake: former Patient Tobacco Use Status: Former Tobacco user Substance Use Type: Marijuana Advance Directives: No service: No Physical Exam ED Vital Signs: Vital Signs - 24 hr 06/15/23 18:39 06/15/23 21:44 Temperature 97.7 F Pulse Rate 95 84 Respiratory Rate 20 24 H Blood Pressure 114/64 105/50 L Pulse Oximetry 100 98 Oxygen Delivery Method Nasal Cannula Nasal Cannula Oxygen Flow Rate 2 BMI result Body Mass Index 27.8 Medications Administered Discontinued Medications Generic Name Dose Route Start Last Admin Trade Name Freq PRN Reason Stop Dose Admin Sodium Chloride 1,000 mls @ 999 mls/hr 06/15/23 22:15 06/15/23 22:24 Ns IV 06/15/23 23:15 999 mls/hr .Q1H1M MIRIAM Administration Sodium Chloride 1,000 mls @ 999 mls/hr 06/15/23 22:15 06/15/23 22:26 Ns IV 06/15/23 23:15 999 mls/hr .Q1H1M MIRIAM Administration Medical Decision Making Medical Decision Making MDM Narrative: Patient is a 67-year-old male with a history of liver cirrhosis came in from [facility] for call of question episodes of unresponsiveness. No history of seizure. Patient has a history of liver cirrhosis secondary to alcohol use in the past. Patient's ammonia level today was 22 this is approximately baseline. Patient's electrolytes showed significant elevation in creatinine today. Currently is 4.69. Baseline is approximately 2-1/2. His urine is infected. Greater than 50 WBCs positive bacteria positive leukocyte esterase cultures were obtained antibiotic will be started alcohol less than 10. Chest x-ray by my interpretation showed no acute evidence of pneumonia. Given a L of fluids patient's blood pressure improved. Will monitor carefully. Lactate is pending. Patient's lactate is over 2. 30 cc per kilos total of fluid was ordered. Patient given 2 L of fluids so far. Repeat focal exam for sepsis approximately the same. Patient awake alert has alternating confusion. Family at bedside. Currently awaiting hospitalist admission. Differential Diagnosis Differential Diagnoses: The differential diagnosis associated with the presentation includes Urinary tract infection, altered mental status, renal insufficiency Admission/Observation Consideration of admission/observation: Escalation of care including admission/observation considered Patient needs to be admitted for further evaluation Consult Healthcare Provider Management of the patient was discussed with: Hospitalist Lab Data MDM Lab Attestation statement: I reviewed the patient's lab results. 06/15/23 21:33 06/15/23 21:33 Labs: Lab Results 06/15/23 06/15/23 06/15/23 Range/Units 21:33 21:41 23:14 WBC 7.1 (4.8-10.8) X10*3/uL RBC 2.60 L (4.60-5.80) X10*6/uL Hgb 8.1 L (14.0-18.0) g/dl Hct 24.3 L (42.0-52.0) % MCV 93.5 (80.0-98.0) fL MCH 31.2 (27.0-33.0) pg MCHC 33.3 (31.0-36.0) g/dl RDW 19.0 H (11.0-16.0) % Plt Count 272 D (160-400) X10*3/uL MPV 10.3 (9.4-12.4) fL Immature Gran % (Auto) 0.3 (0.0-0.4) % Neut % (Auto) 67.4 (45-73) % Lymph % (Auto) 22.5 (20-40) % [place] % (Auto) 7.8 (2-11) % Eos % (Auto) 1.0 (0-4) % Baso % (Auto) 1.0 (0-2) % Lymph # (Auto) 1.6 (1.2-4.9) X10*3/uL [place] # (Auto) 0.6 (0.1-1.2) X10*3/uL Eos # (Auto) 0.1 (0.0-0.4) X10*3/uL Baso # (Auto) 0.1 (0.0-0.2) X10*3/uL Abs Immat Gran (auto) 0.02 (0.00-0.03) X10*3/uL Absolute Neuts (auto) 4.8 (2.0-8.3) x10*3/uL Absolute Nucleated RBC 0.000 (0.0-0.012) X10*3/uL Nucleated RBC % (auto) 0.0 (0.0-0.2) /100WBC PT 14.5 H (11.1-13.3) SEC INR 1.2 H (0.9-1.1) Sodium 137 (135-145) mmol/L Potassium 4.2 D (3.3-5.1) mmol/L Chloride 101 (96-108) mmol/L Carbon Dioxide 21 L (22-29) mmol/L Anion Gap 19 (12-20) BUN 53 H (9-16) mg/dL Creatinine 4.68 H* (0.5-1.4) mg/dL Estim Creat Clear Calc 15.6 Estimated GFR 12 Random Glucose 175 H (60-115) mg/dL Lactic Acid 2.8 H* (0.5-2.0) mmol/L Calcium 9.6 (8.4-10.2) mg/dL Phosphorus 4.5 (2.7-4.5) mg/dL Magnesium 2.2 (1.6-2.6) mg/dL Total Bilirubin 1.4 H (0.0-1.0) mg/dL Direct Bilirubin 0.5 (0.0-0.5) mg/dL AST 27 (5-37) U/L ALT 13 (0-40) U/L Alkaline Phosphatase 102 (39-117) U/L Ammonia 22 (13-55) umol/L Troponin I High Sens 23.0 (<3.5-35.0) ng/L Total Protein 6.5 (6.5-8.0) g/dL Albumin 3.9 (3.5-5.0) g/dL Urine Color Dark Yellow Urine Appearance Turbid Urine pH 5.5 (5.0-9.0) Ur Specific [place] 1.020 (1.005-1.025) Urine Protein 300 (3+) H (Neg-Trace) mg/dL Urine Glucose (UA) Negative (Negative) mg/dL Urine Ketones Trace (Negative) mg/dL Urine Blood Large (3+) H (Negative) Urine Nitrite Negative (Negative) Ur Leukocyte Esterase Large (3+) H (Negative) Urine RBC >20 H (0-2) /HPF Urine WBC >50 H (0-5) /HPF Ur Squamous Epith Cells 0-2 (0-2) /HPF Urine Bacteria 4+ (None Seen) Hyaline Casts 6-10 (0-2) /LPF Urine Yeast Present Ethyl Alcohol < 10 mg/dL Independent Interpretation I performed an independent interpretation of an: EKG (Patient's EKG showed a sinus pattern heart rate is 90 positive right bundle branch block which is old), Plain X-Ray (My interpretation patient's chest x-ray is grossly negative for pneumonia) and CT Scan (My interpretation patient's CT scan of the head was grossly negative for any acute evidence of bleeding.) Radiology Impression Discussion of test interpretation with radiology: I have reviewed the radiologist's reading. Independent Historian Clinical information obtained from an independent historian. History obtained from or confirmed by: EMS and Other (Family) External Record Review External record reviewed: Inpatient record Chronic Conditions Patient?s care impacted by: Hypertension Liver cirrhosis, chronic renal insufficiency Social Determinants Patient?s care significantly limited by Social Determinants of Health including: Problems related to primary support group Critical Care Time Critical Care Time Critical Care Time: Yes Total Critical Care Time: 40 Attestation: I have personally provided 40 minutes of critical care time exclusive of time spent on separately billable procedures. ?Time includes review of lab data, radiology results, discussion with consultants, and monitoring for potential decompensation. ?Interventions were performed as documented above Discharge Plan Discharge Clinical Impression: Urinary tract infection, Altered mental state, Acute hepatic encephalopathy Patient Disposition: Admitted As Inpatient Print Language: Hungarian
--- NOTE | 2023-06-15 21:35 | PC.NURSE ---
labs delayed due to access issue. Another RN will attempt to get IV and labs
[2023-06-15 21:43] LABS: MANUAL DIFF FLAG NO
[2023-06-15 21:44] VITALS: BP 105/50; PULSE 84; RESP 24; O2SAT 98
[2023-06-15 21:45] LABS: Basophils Absolute Auto 0.1 X10*3/uL (0.0-0.2); Eosinophils Absolute Auto 0.1 X10*3/uL (0.0-0.4); Hematocrit 24.3 % (42.0-52.0); Hemoglobin 8.1 g/dl (14.0-18.0); Imm Gran Abs Auto 0.02 X10*3/uL (0.00-0.03); Imm Gran Pct Auto 0.3 % (0.0-0.4); Lymphocytes Absolute Auto 1.6 X10*3/uL (1.2-4.9); Lymphocytes Percent Auto 22.5 % (20-40); Mean Corpuscular HGB Conc 33.3 g/dl (31.0-36.0); Mean Corpuscular Hemoglobin 31.2 pg (27.0-33.0); Mean Corpuscular Volume 93.5 fL (80.0-98.0); Mean Platelet Volume 10.3 fL (9.4-12.4); Monocytes Absolute Auto 0.6 X10*3/uL (0.1-1.2); Monocytes Percent Auto 7.8 % (2-11); Neutrophils Absolute Auto 4.8 x10*3/uL (2.0-8.3); Neutrophils Percent Auto 67.4 % (45-73); Platelet Count 272 X10*3/uL (160-400); White Blood Count 7.1 X10*3/uL (4.8-10.8)
[2023-06-15 21:50] LABS: INTERNATIONAL NORM RATIO 1.2 (0.9-1.1); Prothrombin Time 14.5 SEC (11.1-13.3)
[2023-06-15 21:52] LABS: Ammonia 22 umol/L (13-55)
[2023-06-15 21:59] LABS: Appearance Urine Turbid; Color Urine Dark Yellow; Glucose Urine UA Negative (Negative); Leukocyte Esterase Urine Large (3+) (Negative); Nitrite Urine Negative (Negative); PH 5.5 (5.0-9.0); UMIC TRIGGER UACC YES; Urine Blood Large (3+) (Negative); Urine Ketones Trace mg/dL (Negative); Urine Protein 300 (3+) mg/dL (Neg-Trace)
[2023-06-15 22:03] LABS: Alanine Aminotransferase 13 U/L (0-40); Albumin Level 3.9 g/dL (3.5-5.0); Alkaline Phosphatase 102 U/L (39-117); Anion Gap 19 (12-20); Aspartate Amino Transferase 27 U/L (5-37); Bilirubin Direct 0.5 mg/dL (0.0-0.5); Bilirubin Total 1.4 mg/dL (0.0-1.0); Blood Urea Nitrogen 53 mg/dL (9-16); Calcium 9.6 mg/dL (8.4-10.2); Carbon Dioxide 21 mmol/L (22-29); Chloride 101 mmol/L (96-108); Creatinine Clr Calc Pharmacy 15.6; Estimated Glomerular Filt Rate 12; Ethanol < 10 mg/dL; Glucose Random 175 mg/dL (60-115); Magnesium 2.2 mg/dL (1.6-2.6); Phosphorus 4.5 mg/dL (2.7-4.5); Potassium 4.2 mmol/L (3.3-5.1); Sodium 137 mmol/L (135-145); Total Protein 6.5 g/dL (6.5-8.0)
[2023-06-15 22:12] LABS: Bacteria Urine 4+ (None Seen); RBC Urine >20 /HPF (0-2); Squamous Epithelial Cell Urine 0-2 /HPF (0-2); UACC Culture Trigger YES; WBC Urine >50 /HPF (0-5)
[2023-06-15] MEDS: 0.9 % Sodium Chloride 1,000 ML 999 ML IV ×2 (22:24→22:26)
[2023-06-15 23:36] LABS: Lactic Acid 2.8 mmol/L (0.5-2.0)
[2023-06-16] VITALS (11 sets, daily range): BP systolic 100–118; BP diastolic 50–72; PULSE 57–86; RESP 11–20; TEMP 36.1–36.9; O2SAT 97–100
[2023-06-16] MEDS: cefTRIAXone sodium 1 GM in 0.9 % Sodium Chloride 50 ML IV ×2 (00:05→21:23)
[2023-06-16] MEDS: Octreotide Acetate 100 MCG/ML AMPUL SUBCUT (00:05)
[2023-06-16] MEDS: Lactulose 20 GM/30 ML SOLUTION 30 GM PO ×3 (00:05→12:42)
[2023-06-16 01:17] LABS: Reflex Lactate? Lactic Acid Added
[2023-06-16] MEDS: Pantoprazole Sodium 40 MG/10 ML VIAL IVPUSH ×2 (02:03→12:46)
[2023-06-16] MEDS: Midodrine HCl 10 MG TABLET PO ×4 (02:04→18:30)
[2023-06-16] MEDS: rifAXIMin 550 MG TABLET PO ×2 (02:04→12:42)
[2023-06-16] MEDS: Albumin Human 25 % 100 ML IV ×4 (02:55→18:27)
[2023-06-16 04:44] LABS: Mean Corpuscular HGB Conc 34.2 g/dl (31.0-36.0); Mean Corpuscular Volume 90.7 fL (80.0-98.0); Mean Platelet Volume 9.8 fL (9.4-12.4); Platelet Count 180 X10*3/uL (160-400); Red Blood Count 2.16 X10*6/uL (4.60-5.80); Red Cell Distribution Width 18.6 % (11.0-16.0); White Blood Count 4.4 X10*3/uL (4.8-10.8)
[2023-06-16 04:47] LABS: Hemoglobin 6.7 g/dl (14.0-18.0)
[2023-06-16 04:48] LABS: Hematocrit 19.6 % (42.0-52.0)
[2023-06-16 04:48] LABS: VBG Base Excess -1.5 mmol/L; VBG HCO3 23 mmol/L (22-26); VBG pCO2 39 mmHg; VBG pH 7.37 (7.32-7.43); VBG pO2 66 mmHg
[2023-06-16 04:54] LABS: Venous Blood Gas Refer to POC result
--- NOTE | 2023-06-16 05:37 | P.HPHOSP_ITS ---
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 According to ED triage note patient was stents and became unresponsive. It seems like he has not been taking his lactulose lately. On evaluation the patient was alert and oriented x3 however, he was confused at time, saying same thoughts multiple times and difficulty talking. Despite this he was able to answer some of my questions. He denied any pain, nausea, vomiting or diarrhea. He denied abdominal pain however, he mentioned that his abdominal girth has been increasing and does have some shortness on breath. He denied chest pain. No fevers chills has been reported. His daughter was at bedside. In the ED, he was found to have stable vital signs. Blood workup is remarkable for marked elevated creatinine 4.68 (baseline around 2.23-2.40). Hemoglobin dropped from 8.1-6.7. There is no leukocytosis or thrombocytopenia. INR is 1.2. Venous blood gas showed no respiratory acidosis. There are no significant electrolyte imbalances. Bicarb is slightly low, 21. Lactic acid is is 2.8. Bilirubin slightly elevated at 1.4. Transaminases and alk-phos are normal. Ammonia is 22. Urinalysis consistent with urinary tract infection. His CT scan showed no acute intracranial pathology. CXR is negative. ED tx: NS 2L bolus, ceftriaxone 1 g IV, lactulose 30 mg PO X1 and octreotide 100 mcg. Review of Systems 2 Review of Systems: Limited due to medical condition. 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 Orthostatic hypotension Chronic liver disease Type 2 diabetes mellitus Social History Household Members: None Housing: [facility] Do you presently have visiting nurse or other home services: No Alcohol intake: former Patient Tobacco Use Status: Former Tobacco user Smoked in Last 30 Days: No Substance Use Type: Marijuana Advance Directives: No service: No Meds Allergies Allergy/AdvReac Type Severity Reaction Status Date / Time lisinopril Allergy Angioedema Verified 06/15/23 18:43 scallops Allergy Angioedema Verified 06/15/23 18:43 Active Medications: Current Medications Albumin Human (Kedbumin 25 %) 100 mls @ 100 mls/hr IV Q6H [facility] Stop: 06/16/23 19:09 Last Admin: 06/16/23 02:55 Dose: 100 mls/hr Ceftriaxone Sodium 1 gm/ (Sodium Chloride) 50 mls @ 100 mls/hr IV Q24H [facility] Sodium Chloride (Ns) 100 mls @ 100 mls/hr IV ONCE ONE Stop: 06/16/23 06:09 Sodium Chloride (Ns) 100 mls @ 100 mls/hr IV ONCE ONE Stop: 06/16/23 06:09 Octreotide Acetate 500 mcg/ (Sodium Chloride) 501 mls @ 50.1 mls/hr IVCONT .Q10H [facility] Lactulose (Lactulose 20 Gm/30 Ml Solution) 30 gm PO TID [facility] Lorazepam (Lorazepam 2 Mg/Ml Vial) 1 mg IVPUSH ONCE PRN PRN Reason: Seizures Midodrine (Midodrine Hcl 10 Mg Tablet) 10 mg PO TID@0900,1300,1700 [facility] Last Admin: 06/16/23 02:04 Dose: 10 mg Octreotide Acetate (Octreotide Acetate 100 Mcg/Ml Ampul) 50 mcg IVPUSH ONCE ONE Stop: 06/16/23 05:11 Pantoprazole Sodium (Pantoprazole Sodium 40 Mg/10 Ml Vial) 40 mg IVPUSH Q12H [facility] Last Admin: 06/16/23 02:03 Dose: 40 mg Rifaximin (Rifaximin 550 Mg Tablet) 550 mg PO BID [facility] Last Admin: 06/16/23 02:04 Dose: 550 mg Sodium Chloride (0.9 % Sodium Chloride Flush 3 Ml Syringe) 3 ml IVFLUSH QSHIFT [facility] Home Medications ?Medication ?Instructions ?Recorded ?Confirmed ?Last Taken ?Type acetaminophen 325 mg tablet 650 mg PO DAILY PRN Fever 04/30/23 06/04/23 Unknown History folic acid 1 mg tablet 1 mg PO DAILY 04/30/23 06/04/23 Unknown History gabapentin 100 mg capsule 100 mg PO TID 04/30/23 06/04/23 Unknown History lactulose 10 gram/15 mL oral 45 ml PO TID 04/30/23 06/04/23 Unknown History solution melatonin 3 mg tablet 3 mg PO BEDTIME Sleep 04/30/23 06/04/23 Unknown History midodrine 10 mg tablet 10 mg PO TID@0600,1200,1800 04/30/23 06/04/23 Unknown History multivitamin 1 tab PO DAILY 04/30/23 06/04/23 Unknown History naltrexone 50 mg tablet 50 mg PO DAILY 04/30/23 06/04/23 Unknown History pantoprazole 40 mg tablet,delayed 40 mg PO DAILY@0600 04/30/23 06/04/23 Unknown History release rifaximin 550 mg tablet (Xifaxan) 550 mg PO BID 04/30/23 06/04/23 Unknown History thiamine HCl (vitamin B1) 100 mg 100 mg PO DAILY 04/30/23 06/04/23 Unknown History tablet bisacodyl 10 mg rectal suppository 10 mg IN DAILY PRN Constipation 05/20/23 06/04/23 Unknown History magnesium hydroxide 400 mg/5 mL 400 ml PO DAILY PRN Constipation 05/20/23 06/04/23 Unknown History oral suspension (Milk of Magnesia) ondansetron HCl 4 mg tablet 4 mg PO Q4H PRN nausea/vomting 05/20/23 06/04/23 Unknown History sodium phosphates 19 gram-7 118 ml IN DAILY PRN Constipation 05/20/23 06/04/23 Unknown History gram/118 mL enema (Fleet Enema) Physical Exam 2 Vital Signs and Narrative: Vital Signs: Last Vital Signs Temp 98.5 F 06/16/23 03:01 Pulse 65 06/16/23 03:01 Resp 14 06/16/23 03:01 BP 107/54 L 06/16/23 03:01 Pulse Ox 100 06/16/23 03:01 O2 Del Method Nasal Cannula 06/16/23 03:01 O2 Flow Rate 2 06/16/23 03:01 Oxygen Flow Rate 2 06/15/23 18:39 BMI result Body Mass Index 27.8 Constitutional - Awake and lethargic. Chronically ill. Malnourished. HEENT - Pupils equally round. Yellow sclerae. Heart- RRR. Lungs - Normal lung expansion, Normal respiratory effort, No respiratory distress, CTA bilaterally Abdomen - Marked abdominal distension. Tense. Non tenderness. Positive fluid wave. - Indwelling urinary catheter in place. Extremities - mild pitting edema. Musculoskeletal -generalized atrophy. Skin - Warm/Dry. Pallor. No overt jaundice. Neurological - Lethargic & oriented x3. No gross focal weakness noted. Dysarthric speech. Psychological - Depressed affect Results Labs 06/16/23 04:35 06/15/23 21:33 Labs: Laboratory Results - last 24 hr 06/15/23 06/15/23 06/15/23 21:33 21:41 23:14 MCV 93.5 MCH 31.2 MCHC 33.3 RDW 19.0 H Plt Count 272 D MPV 10.3 Immature Gran % (Auto) 0.3 Neut % (Auto) 67.4 Lymph % (Auto) 22.5 [place] % (Auto) 7.8 Eos % (Auto) 1.0 Baso % (Auto) 1.0 Lymph # (Auto) 1.6 [place] # (Auto) 0.6 Eos # (Auto) 0.1 Baso # (Auto) 0.1 Abs Immat Gran (auto) 0.02 Absolute Neuts (auto) 4.8 Absolute Nucleated RBC 0.000 Nucleated RBC % (auto) 0.0 PT 14.5 H INR 1.2 H VBG pH VBG pCO2 VBG pO2 VBG HCO3 VBG O2 Saturation VBG Base Excess Anion Gap 19 Estim Creat Clear Calc 15.6 Estimated GFR 12 Random Glucose 175 H Lactic Acid 2.8 H* Calcium 9.6 Phosphorus 4.5 Magnesium 2.2 Total Bilirubin 1.4 H Direct Bilirubin 0.5 AST 27 ALT 13 Alkaline Phosphatase 102 Ammonia 22 Troponin I High Sens 23.0 Total Protein 6.5 Albumin 3.9 Urine Color Dark Yellow Urine Appearance Turbid Urine pH 5.5 Ur Specific [place] 1.020 Urine Protein 300 (3+) H Urine Glucose (UA) Negative Urine Ketones Trace Urine Blood Large (3+) H Urine Nitrite Negative Ur Leukocyte Esterase Large (3+) H Urine RBC >20 H Urine WBC >50 H Ur Squamous Epith Cells 0-2 Urine Bacteria 4+ Hyaline Casts 6-10 Urine Yeast Present Ethyl Alcohol < 10 06/16/23 06/16/23 04:35 04:36 MCV 90.7 MCH 31.0 MCHC 34.2 RDW 18.6 H Plt Count 180 D MPV 9.8 Immature Gran % (Auto) Neut % (Auto) Lymph % (Auto) [place] % (Auto) Eos % (Auto) Baso % (Auto) Lymph # (Auto) [place] # (Auto) Eos # (Auto) Baso # (Auto) Abs Immat Gran (auto) Absolute Neuts (auto) Absolute Nucleated RBC 0.000 Nucleated RBC % (auto) 0.0 PT INR VBG pH 7.37 VBG pCO2 39 VBG pO2 66 VBG HCO3 23 VBG O2 Saturation Not Reportable VBG Base Excess -1.5 Anion Gap Estim Creat Clear Calc Estimated GFR Random Glucose Lactic Acid Calcium Phosphorus Magnesium Total Bilirubin Direct Bilirubin AST ALT Alkaline Phosphatase Ammonia Troponin I High Sens Total Protein Albumin Urine Color Urine Appearance Urine pH Ur Specific [place] Urine Protein Urine Glucose (UA) Urine Ketones Urine Blood Urine Nitrite Ur Leukocyte Esterase Urine RBC Urine WBC Ur Squamous Epith Cells Urine Bacteria Hyaline Casts Urine Yeast Ethyl Alcohol Imaging Radiologist's Impressions: Impressions Chest X-Ray 06/15/23 19:50 IMPRESSION: No acute process Head CT 06/15/23 20:31 IMPRESSION: 1. No acute intracranial pathology. 2. Chronic white matter small vessel ischemic changes. Assessment and Plan (1) Acute hepatic encephalopathy: Status: Acute (2) Depression: Status: Acute (3) Chronic systolic (congestive) heart failure: Status: Acute (4) Type 2 diabetes mellitus: Qualifiers: Diabetes mellitus terminal superintendent insulin use: with terminal superintendent use Diabetes mellitus complication status: with kidney complications Diabetes mellitus complication detail: with other kidney complication Qualified Code(s): E11.29 - Type 2 diabetes mellitus with other diabetic kidney complication; Z79.4 - intermodal customer service (current) use of insulin Status: Inactive (5) GERD (gastroesophageal reflux disease): Qualifiers: Esophagitis presence: without esophagitis Qualified Code(s): K21.9 - Gastro-esophageal reflux disease without esophagitis Status: Inactive (6) Acute on chronic renal failure: Qualifiers: Acute renal failure type: unspecified Chronic kidney disease stage: u nspecified stage Qualified Code(s): N17.9 - Acute kidney failure, unspecified; N18.9 - Chronic kidney disease, unspecified Status: Acute Plan Andres Torres is a 67 years old man w/ PMH significant for alcoholic chronic liver disease admitted with: * Hepatic encephalopathy (grade II) triggered by acute infection (UTI), renal failure and possible GI bleeding. Admit to hospitalist service. Restart treatment with lactulose and rifaximin. Aspiration precautions. Avoid sedative. * Worsening anemia. Concern for esophageal varices bleeding. Will transfuse 2 units of PRBCs -verbal consent was given by patient's over the phone. NPO. Start treatment with octreotide 50 mcg IV push then IV infusion. Protonix 40 mg IV twice daily Continue to monitor H&H. Gastroenterology consult. * Acute on chronic renal failure likely hepatorenal syndrome. Start treatment with albumin IV. NS 2L bolus given in ED. Continue to monitor renal function. Hold diuretics for now. Start treatment with midodrine 10 mg p.o. t.i.d. Avoid nephrotoxic agents and hypotension. Nephrology consult. * Mild lactic acidosis likely secondary to chronic liver failure. No SIRS criteria. IV fluids given. Continue to monitor. Blood cultures were obtained will follow results. * Marked ascites. IR consult for therapeutic paracentesis. * HFrEF/cardiomyopathy (30-35%). Not currently decompensated. Continue to monitor for symptoms. * Catheter-associated urinary tract infection. Continue ceftriaxone. Urine culture was obtained -will follow results. * Seizure likely secondary to hepatic encephalopathy. Seizure precautions. Ativan IV as needed. * Type 2 diabetes mellitus. Blood glucose monitoring every 6 hours. Insulin sliding scale. * Mood disorder. Continue sertraline when able. DVT prophylaxis: Heparin Code status: Full Patient will need hospitalization for at least 2 midnights for multiple acute comorbidities including hepatic encephalopathy, worsening anemia, worsening renal failure and marked ascites treatment. Patient will need close monitoring of vital signs, PRBC transfusion, paracentesis, IV albumin and evaluation by subspecialties. Quality Stroke Does the patient have a stroke diagnosis?: No VTE Prior VTE?: No VTE Risk Level:: Medical - moderate - high VTE Device Contraindication: N/A - Device Ordered VTE Drug Contraindication: Treatment Not Indicated
[2023-06-16] MEDS: Octreotide Acetate 500 MCG in 0.9 % Sodium Chloride 500 ML 50.1 MCG IVCONT ×2 (06:23→18:22)
[2023-06-16] MEDS: Octreotide Acetate 100 MCG/ML AMPUL 50 MCG IVPUSH (06:23)
--- NOTE | 2023-06-16 07:18 | PC.NURSE ---
Pt is alert and oriented X3 with periods of confusion or difficulty finding thoughts. Pt denies any pain at this time and throughout night. Pt incontinent of stool, Gordon in place with cream/yellow colored urine. H&H back low, pt will get blood, IV octreotide given and gtt running at this time awaiting blood to be ready. Denies any pain at this time. Report given to oncoming RN.
[2023-06-16 07:20] LABS: Glucose, Whole Blood 155 mg/dL (60-115)
--- NOTE | 2023-06-16 08:09 | PC.NURSE ---
assumed care of pt at 0700. pt sleeping soundly in stretcher in no apparent distress. octreotide infusing per mar in current IV. 22G IV established to R mary by RENARD Edwards. pt currently receiving blood transfusion per TAR. tolerating well. pt awaiting bed assignment. call frederick within reach. pt NPO and aware. rr even/unlabored. plan of care ongoing.
[2023-06-16 08:25] LABS: Anion Gap 18 (12-20); Blood Urea Nitrogen 52 mg/dL (9-16); Carbon Dioxide 18 mmol/L (22-29); Chloride 103 mmol/L (96-108); Creatinine Clr Calc Pharmacy 16.2; Estimated Glomerular Filt Rate 13
[2023-06-16 08:26] LABS: Sodium 139 mmol/L (135-145)
[2023-06-16 08:29] LABS: Alanine Aminotransferase 10 U/L (0-40); Aspartate Amino Transferase 19 U/L (5-37); Glucose Random 162 mg/dL (60-115); Magnesium 2.1 mg/dL (1.6-2.6); Total Protein 5.8 g/dL (6.5-8.0)
[2023-06-16 08:30] LABS: Albumin Level 3.7 g/dL (3.5-5.0); Alkaline Phosphatase 79 U/L (39-117)
--- NOTE | 2023-06-16 09:34 | P.PNIM_ITS ---
Subjective Subjective Date of Service: 06/16/23 Interval History: F/u on hepatic encephalopathy, lactic acidisos, hepatorenal syndrome, and anemia He remains confused. Physical Exam 2 Vital Signs: Vital Signs: Last Vital Signs Temp 98.0 F 06/16/23 08:08 Pulse 57 06/16/23 08:08 Resp 11 L 06/16/23 08:08 BP 100/50 L 06/16/23 08:08 Pulse Ox 100 06/16/23 05:39 O2 Del Method Room Air 06/16/23 05:39 O2 Flow Rate 2 06/16/23 03:01 Oxygen Flow Rate 2 06/15/23 18:39 BMI result Body Mass Index 27.8 General: confused, Resp: CTA bilateral CVS: S1,S2,RRR GI: +BS, NT, distended Skin: No rash Neuro: motor grossly intact, no asterixix Psych: appropriate affect Objective Data Active Medications Glucose (Glucose Gel 15 Gm Gel..Gram.) 15 gm PO Q15M PRN; Protocol PRN Reason: per Hypoglycemia Standing Ord. Albumin Human (Kedbumin 25 %) 100 mls @ 100 mls/hr IV Q6H [facility] Stop: 06/16/23 19:09 Last Infusion: 06/16/23 09:31 Dose: Infused Documented By: CASSIDY Ceftriaxone Sodium 1 gm/ (Sodium Chloride) 50 mls @ 100 mls/hr IV Q24H [facility] Octreotide Acetate 500 mcg/ (Sodium Chloride) 501 mls @ 50.1 mls/hr IVCONT .Q10H [facility] Last Infusion: 06/16/23 09:31 Dose: 50 mcg/hr, 50.1 mls/hr Documented By: CASSIDY Dextrose (D10) 250 mls @ 750 mls/hr IV Q15M PRN; Protocol PRN Reason: per Hypoglycemia Standing Ord. Insulin Human Lispro (Insulin Lispro 100 Unit/Ml 3 Ml Vial) 0 unit SUBCUT Q6H [facility]; Protocol Last Admin: 06/16/23 08:34 Dose: Not Given Documented By: CASSIDY Non-Admin Reason: NPO Lactulose (Lactulose 20 Gm/30 Ml Solution) 30 gm PO TID [facility] Lorazepam (Lorazepam 2 Mg/Ml Vial) 1 mg IVPUSH ONCE PRN PRN Reason: Seizures Midodrine (Midodrine Hcl 10 Mg Tablet) 10 mg PO TID@0900,1300,1700 [facility] Last Admin: 06/16/23 02:04 Dose: 10 mg Documented By: AIDAN Pantoprazole Sodium (Pantoprazole Sodium 40 Mg/10 Ml Vial) 40 mg IVPUSH Q12H [facility] Last Admin: 06/16/23 02:03 Dose: 40 mg Documented By: AIDAN Rifaximin (Rifaximin 550 Mg Tablet) 550 mg PO BID [facility] Last Admin: 06/16/23 02:04 Dose: 550 mg Documented By: AIDAN Sodium Chloride (0.9 % Sodium Chloride Flush 3 Ml Syringe) 3 ml IVFLUSH QSHIFT [facility] Last Admin: 06/16/23 07:59 Dose: Not Given Documented By: CASSIDY Non-Admin Reason: IV Running Labs 06/16/23 04:35 06/16/23 04:34 Labs: Laboratory Results - last 24 hr 06/15/23 06/15/23 06/15/23 21:33 21:41 23:14 MCV 93.5 MCH 31.2 MCHC 33.3 RDW 19.0 H Plt Count 272 D MPV 10.3 Immature Gran % (Auto) 0.3 Neut % (Auto) 67.4 Lymph % (Auto) 22.5 [place] % (Auto) 7.8 Eos % (Auto) 1.0 Baso % (Auto) 1.0 Lymph # (Auto) 1.6 [place] # (Auto) 0.6 Eos # (Auto) 0.1 Baso # (Auto) 0.1 Abs Immat Gran (auto) 0.02 Absolute Neuts (auto) 4.8 Absolute Nucleated RBC 0.000 Nucleated RBC % (auto) 0.0 PT 14.5 H INR 1.2 H VBG pH VBG pCO2 VBG pO2 VBG HCO3 VBG O2 Saturation VBG Base Excess Anion Gap 19 Estim Creat Clear Calc 15.6 Estimated GFR 12 POC Glucose Random Glucose 175 H Lactic Acid 2.8 H* Lactic Acid F/U @ 2Hr Calcium 9.6 Phosphorus 4.5 Magnesium 2.2 Total Bilirubin 1.4 H Direct Bilirubin 0.5 AST 27 ALT 13 Alkaline Phosphatase 102 Ammonia 22 Troponin I High Sens 23.0 Total Protein 6.5 Albumin 3.9 Urine Color Dark Yellow Urine Appearance Turbid Urine pH 5.5 Ur Specific [place] 1.020 Urine Protein 300 (3+) H Urine Glucose (UA) Negative Urine Ketones Trace Urine Blood Large (3+) H Urine Nitrite Negative Ur Leukocyte Esterase Large (3+) H Urine RBC >20 H Urine WBC >50 H Ur Squamous Epith Cells 0-2 Urine Bacteria 4+ Hyaline Casts 6-10 Urine Yeast Present Ethyl Alcohol < 10 Blood Type Antibody Screen Crossmatch 06/16/23 06/16/23 06/16/23 02:46 04:34 04:35 MCV 90.7 MCH 31.0 MCHC 34.2 RDW 18.6 H Plt Count 180 D MPV 9.8 Immature Gran % (Auto) Neut % (Auto) Lymph % (Auto) [place] % (Auto) Eos % (Auto) Baso % (Auto) Lymph # (Auto) [place] # (Auto) Eos # (Auto) Baso # (Auto) Abs Immat Gran (auto) Absolute Neuts (auto) Absolute Nucleated RBC 0.000 Nucleated RBC % (auto) 0.0 PT INR VBG pH VBG pCO2 VBG pO2 VBG HCO3 VBG O2 Saturation VBG Base Excess Anion Gap 18 Estim Creat Clear Calc 16.2 Estimated GFR 13 POC Glucose Random Glucose 162 H Lactic Acid Lactic Acid F/U @ 2Hr 2.0 Calcium 9.0 D Phosphorus Magnesium 2.1 Total Bilirubin 1.0 Direct Bilirubin AST 19 ALT 10 Alkaline Phosphatase 79 Ammonia Troponin I High Sens Total Protein 5.8 L Albumin 3.7 Urine Color Urine Appearance Urine pH Ur Specific [place] Urine Protein Urine Glucose (UA) Urine Ketones Urine Blood Urine Nitrite Ur Leukocyte Esterase Urine RBC Urine WBC Ur Squamous Epith Cells Urine Bacteria Hyaline Casts Urine Yeast Ethyl Alcohol Blood Type Antibody Screen Crossmatch 06/16/23 06/16/23 06/16/23 04:36 05:40 07:16 MCV MCH MCHC RDW Plt Count MPV Immature Gran % (Auto) Neut % (Auto) Lymph % (Auto) [place] % (Auto) Eos % (Auto) Baso % (Auto) Lymph # (Auto) [place] # (Auto) Eos # (Auto) Baso # (Auto) Abs Immat Gran (auto) Absolute Neuts (auto) Absolute Nucleated RBC Nucleated RBC % (auto) PT INR VBG pH 7.37 VBG pCO2 39 VBG pO2 66 VBG HCO3 23 VBG O2 Saturation Not Reportable VBG Base Excess -1.5 Anion Gap Estim Creat Clear Calc Estimated GFR POC Glucose 155 H Random Glucose Lactic Acid Lactic Acid F/U @ 2Hr Calcium Phosphorus Magnesium Total Bilirubin Direct Bilirubin AST ALT Alkaline Phosphatase Ammonia Troponin I High Sens Total Protein Albumin Urine Color Urine Appearance Urine pH Ur Specific [place] Urine Protein Urine Glucose (UA) Urine Ketones Urine Blood Urine Nitrite Ur Leukocyte Esterase Urine RBC Urine WBC Ur Squamous Epith Cells Urine Bacteria Hyaline Casts Urine Yeast Ethyl Alcohol Blood Type A Negative Antibody Screen NEGATIVE Crossmatch See Detail Assessment and Plan (1) Acute on chronic renal failure: Status: Acute (2) Acute hepatic encephalopathy: Status: Acute Plan 67-year-old gentleman with history of alcoholic cirrhosis, chronic indwelling urine catheter, orthostatic hypotension on midodrine, GERD, diabetes mellitus type 2 on insulin, recently discharged from [facility] on June 09 after management for decompensated hepatic cirrhosis with ascites and acute kidney injury and readmitted a week later with Hepatic encephalopathy (grade II) triggered by acute infection (UTI), renal failure and possible GI bleeding. -resume lactulose, avoid sedatives Worsening anemia. Concern for esophageal varices bleeding. Will transfuse 2 units of PRBCs -verbal consent was given by patient's over the phone. NPO. Start treatment with octreotide 50 mcg IV push then IV infusion. Protonix 40 mg IV twice daily Continue to monitor H&H. Gastroenterology consult. Acute on chronic renal failure likely hepatorenal syndrome. Start treatment with albumin IV. NS 2L bolus given in ED. Continue to monitor renal function. Hold diuretics for now. Start treatment with midodrine 10 mg p.o. t.i.d. Avoid nephrotoxic agents and hypotension. Nephrology consult. Mild lactic acidosis likely secondary to chronic liver failure. No SIRS criteria. IV fluids given. Continue to monitor. Blood cultures were obtained will follow results. Marked ascites. IR consult for therapeutic paracentesis. HFrEF/cardiomyopathy (30-35%). Not currently decompensated. Continue to monitor for symptoms. Catheter-associated urinary tract infection. Continue ceftriaxone. Urine culture was obtained -will follow results. Seizure likely secondary to hepatic encephalopathy. Seizure precautions. Ativan IV as needed. Type 2 diabetes mellitus. Blood glucose monitoring every 6 hours. Insulin sliding scale. Mood disorder. Continue sertraline when able. DVT prophylaxis: hold heparin given anemia and concern for gib, Code status: Full need for inpaitent;management for acute hepatic encephalopathy, anemia, hepatorenal syndrome with guarded prognosis Quality Stroke Does the patient have a stroke diagnosis?: No VTE Prior VTE?: No VTE Risk Level:: Medical - moderate - high VTE Device Contraindication: N/A - Device Ordered VTE Drug Contraindication: Treatment Not Indicated
--- NOTE | 2023-06-16 10:22 | PC.NURSE ---
pt medicated per may. approx. 5-10 minutes after med administration, pt vomited large amount of emesis. pt head of bed raised and pt cleaned up. pt sts he feels better now and denies nausea. Dr. Jurado aware. plan of care ongoing.
--- NOTE | 2023-06-16 10:24 | P.CNGI_ITS ---
History of Present Illness Data of Consult Service Date: 06/16/23 Requesting physician: Abida Romero Primary Care Provider: Unknown Physician HPI Reason for consult: Ascites This is a 67-year-old gentleman with past medical history of chronic liver disease secondary to alcohol use as well as cardiomyopathy, type 2 diabetes, GERD, who presented to the hospital from his facility for seizures. Patient was able to give a limited history at bedside. From chart review, patient was noted to have witnessed seizures and altered mental status at his facility. When he presented to the emergency room, he was noted to have acute on chronic anemia as well as acute on chronic kidney injury with creatinine up to 4.6, previously creatinine was 2.3 at the time of discharge last week. Ultrasound abdomen shows large volume ascites. Of note, patient has been seen by GI over the last 2 admissions, and ascites was determined to not be cardiac ascites given high total protein in the fluid x2. Patient was recently in the hospital for similar issues, and discharged on 06/09, but does not appear he was discharged on any diuretic therapy at that time. Patient himself only endorses weakness and fatigue, with abdominal discomfort due to large volume ascites. He does not report any fevers, chills, changes in bowel habits. He also does not report any hematemesis or melena. Recent endoscopy: [facility]: no portal hypertensive gastropathy or varices. 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 Orthostatic hypotension Chronic liver disease Type 2 diabetes mellitus Social History Social History Household Members: None Housing: Detention Do you presently have visiting nurse or other home services: No Alcohol intake: former Patient Tobacco Use Status: Former Tobacco user Smoked in Last 30 Days: No Substance Use Type: Marijuana Advance Directives: No service: No Meds Allergies Allergy/AdvReac Type Severity Reaction Status Date / Time lisinopril Allergy Angioedema Verified 06/15/23 18:43 scallops Allergy Angioedema Verified 06/15/23 18:43 Active Medications: Current Medications Glucose (Glucose Gel 15 Gm Gel..Gram.) 15 gm PO Q15M PRN; Protocol PRN Reason: per Hypoglycemia Standing Ord. Albumin Human (Kedbumin 25 %) 100 mls @ 100 mls/hr IV Q6H [facility] Stop: 06/16/23 19:09 Last Infusion: 06/16/23 09:31 Dose: Infused Ceftriaxone Sodium 1 gm/ (Sodium Chloride) 50 mls @ 100 mls/hr IV Q24H [facility] Octreotide Acetate 500 mcg/ (Sodium Chloride) 501 mls @ 50.1 mls/hr IVCONT .Q10H [facility] Last Infusion: 06/16/23 09:31 Dose: 50 mcg/hr, 50.1 mls/hr Dextrose (D10) 250 mls @ 750 mls/hr IV Q15M PRN; Protocol PRN Reason: per Hypoglycemia Standing Ord. Insulin Human Lispro (Insulin Lispro 100 Unit/Ml 3 Ml Vial) 0 unit SUBCUT Q6H [facility]; Protocol Last Admin: 06/16/23 08:34 Dose: Not Given Lactulose (Lactulose 20 Gm/30 Ml Solution) 30 gm PO TID [facility] Last Admin: 06/16/23 09:45 Dose: 30 gm Lorazepam (Lorazepam 2 Mg/Ml Vial) 1 mg IVPUSH ONCE PRN PRN Reason: Seizures Midodrine (Midodrine Hcl 10 Mg Tablet) 10 mg PO TID@0900,1300,1700 [facility] Last Admin: 06/16/23 09:45 Dose: 10 mg Pantoprazole Sodium (Pantoprazole Sodium 40 Mg/10 Ml Vial) 40 mg IVPUSH Q12H [facility] Last Admin: 06/16/23 02:03 Dose: 40 mg Rifaximin (Rifaximin 550 Mg Tablet) 550 mg PO BID [facility] Last Admin: 06/16/23 02:04 Dose: 550 mg Sodium Chloride (0.9 % Sodium Chloride Flush 3 Ml Syringe) 3 ml IVFLUSH QSHIFT [facility] Last Admin: 06/16/23 07:59 Dose: Not Given Home Medications ?Medication ?Instructions ?Recorded ?Confirmed ?Last Taken ?Type acetaminophen 325 mg tablet 650 mg PO DAILY PRN Fever 04/30/23 06/04/23 Unknown History folic acid 1 mg tablet 1 mg PO DAILY 04/30/23 06/04/23 Unknown History gabapentin 100 mg capsule 100 mg PO TID 04/30/23 06/04/23 Unknown History lactulose 10 gram/15 mL oral 45 ml PO TID 04/30/23 06/04/23 Unknown History solution melatonin 3 mg tablet 3 mg PO BEDTIME Sleep 04/30/23 06/04/23 Unknown History midodrine 10 mg tablet 10 mg PO TID@0600,1200,1800 04/30/23 06/04/23 Unknown History multivitamin 1 tab PO DAILY 04/30/23 06/04/23 Unknown History naltrexone 50 mg tablet 50 mg PO DAILY 04/30/23 06/04/23 Unknown History pantoprazole 40 mg tablet,delayed 40 mg PO DAILY@0600 04/30/23 06/04/23 Unknown History release rifaximin 550 mg tablet (Xifaxan) 550 mg PO BID 04/30/23 06/04/23 Unknown History thiamine HCl (vitamin B1) 100 mg 100 mg PO DAILY 04/30/23 06/04/23 Unknown History tablet bisacodyl 10 mg rectal suppository [address] DAILY PRN Constipation 05/20/23 06/04/23 Unknown History magnesium hydroxide 400 mg/5 mL 400 ml PO DAILY PRN Constipation 05/20/23 06/04/23 Unknown History oral suspension (Milk of Magnesia) ondansetron HCl 4 mg tablet 4 mg PO Q4H PRN nausea/vomting 05/20/23 06/04/23 Unknown History sodium phosphates 19 gram-[address] DAILY PRN Constipation 05/20/23 06/04/23 Unknown History gram/118 mL enema (Fleet Enema) Physical Exam 2 Vital Signs: Vital Signs: Last Vital Signs Temp 98.0 F 06/16/23 08:08 Pulse 57 06/16/23 08:08 Resp 11 L 06/16/23 08:08 BP 100/50 L 06/16/23 08:08 Pulse Ox 100 06/16/23 05:39 O2 Del Method Room Air 06/16/23 05:39 O2 Flow Rate 2 06/16/23 03:01 Oxygen Flow Rate 2 06/15/23 18:39 BMI result Body Mass Index 27.8 Obese elderly gentleman Pale appearing, nonicteric Abdomen soft, distended, positive fluid thrill More extremity edema Awake and oriented x2, no asterixis Results Labs 06/16/23 04:35 06/16/23 04:34 Labs: Short CBC 06/15/23 06/16/23 Range/Units 21:33 04:35 WBC 7.1 4.4 L (4.8-10.8) X10*3/uL Hgb 8.1 L 6.7 L* (14.0-18.0) g/dl Hct 24.3 L 19.6 L* (42.0-52.0) % Plt Count 272 D 180 D (160-400) X10*3/uL BMP 06/15/23 06/16/23 21:33 04:34 Sodium 137 139 Potassium 4.2 D 4.0 Chloride 101 103 Carbon Dioxide 21 L 18 L BUN 53 H 52 H Creatinine 4.68 H* 4.50 H* Calcium 9.6 9.0 D Liver Function 06/15/23 06/16/23 Range/Units 21:33 04:34 Total Bilirubin 1.4 H 1.0 (0.0-1.0) mg/dL Direct Bilirubin 0.5 (0.0-0.5) mg/dL AST 27 19 (5-37) U/L ALT 13 10 (0-40) U/L Alkaline Phosphatase 102 79 (39-117) U/L Albumin 3.9 3.7 (3.5-5.0) g/dL Urine 06/15/23 Range/Units 21:41 Urine Color Dark Yellow Urine Appearance Turbid Urine pH 5.5 (5.0-9.0) Ur Specific [place] 1.020 (1.005-1.025) Urine Protein 300 (3+) H (Neg-Trace) mg/dL Urine Glucose (UA) Negative (Negative) mg/dL Assessment and Plan (1) Acute kidney injury: Status: Resolved (2) Cirrhosis: Status: Acute (3) Ascites: Qualifiers: Ascites type: due to alcoholic cirrhosis Qualified Code(s): K70.31 - Alcoholic cirrhosis of liver with ascites Status: Acute (4) Cardiomyopathy: Status: Acute (5) Acute on chronic renal failure: Qualifiers: Acute renal failure type: unspecified Chronic kidney disease stage: u nspecified stage Qualified Code(s): N17.9 - Acute kidney failure, unspecified; N18.9 - Chronic kidney disease, unspecified Status: Acute (6) Acute on chronic anemia: Status: Resolved Plan Gastroenterology has been consulted for ascites management and hepatorenal syndrome, however based on overall clinical assessment (platelet count, spleen size, EGD at [facility] without any PHG or varices; and ascitic fluid with high SAAG and HIGH total protein) are not suggestive of cirrhotic ascites. Pt does appear to have advanced fibrosis vs underlying cirrhosis likely from etOH use +/- congestive hepatopathy from cardiomyopathy. However, based on ascitic fluid analysis from last admission, this is most consistent with cardiac ascites at this time. Ddx for anemia include GIB vs inflammatory vs chronic disease. Iron studies added on. Recent EGD and platelet count argue against portal hypertensive bleeding however if has DARRON can consider EGD. Plan: - Limited role of IV albumin since clinical picture less likely from HRS/PENNY - Paracentesis - pls send labs for cell count, culture, albumin total protein and cyto - May benefit from diuresis since overall picture NOT consistent with HRS based on previous ascitic fluidanalysis - Iron studies added on - Indication for scope contingent on above Thank you for allowing me to participate in his care. Please do not hesitate to reach out for any questions or concerns. Procedures Date of Service Date of Service: 06/16/23
--- NOTE | 2023-06-16 11:35 | PHA.MEDREC ---
Pharmacy Consult ? Medication Reconciliation Pharmacy has completed the medication reconciliation. Med list from [facility]
[2023-06-16 11:54] LABS: Iron 21 mcg/dL (45-160); Percent Iron Saturation 33 % (15-50); Total Iron Binding Capacity 64 mcg/dL (228-428); Unsaturated Iron Binding 43 ug/dL
[2023-06-16 12:07] LABS: Ferritin 259 ng/mL (20-250)
[2023-06-16 12:07] LABS: Anion Gap 17 (12-20); Blood Urea Nitrogen 51 mg/dL (9-16); Calcium 8.9 mg/dL (8.4-10.2); Carbon Dioxide 18 mmol/L (22-29); Chloride 108 mmol/L (96-108); Creatinine Clr Calc Pharmacy 16.2; Estimated Glomerular Filt Rate 13; Glucose Random 157 mg/dL (60-115); Potassium 3.9 mmol/L (3.3-5.1); Sodium 139 mmol/L (135-145)
[2023-06-16 13:44] LABS: Glucose, Whole Blood 146 mg/dL (60-115)
[2023-06-16] MEDS: Gabapentin 100 MG CAPSULE PO (16:06)
[2023-06-16] MEDS: Sodium Bicarbonate 650 MG TABLET PO (16:06)
--- NOTE | 2023-06-16 16:16 | PC.NURSE ---
2 Units packed RBCs infusion complete. pt re-medicated with lactulose due to vomiting previous dose up. pt also medicated per may with gabapentin and sodium bicarb per may. pt again, vomited up medications. Dr. Jurado aware. pt daughter at bedside. rr even/unlabored. call frederick within reach. plan of care ongoing.
--- NOTE | 2023-06-16 18:24 | PC.NURSE ---
inpatient report complete. pt brought up to unit. a&o, daughter at bedside. Randall/Macarena updated on pt and request for zofran to take PO meds. plan of care ongoing.
[2023-06-16 18:32] LABS: Glucose, Whole Blood 131 mg/dL (60-115)
[2023-06-16 18:43] LABS: Hematocrit 28.3 % (42.0-52.0); Hemoglobin 9.6 g/dl (14.0-18.0); Mean Corpuscular HGB Conc 33.9 g/dl (31.0-36.0); Mean Corpuscular Hemoglobin 30.9 pg (27.0-33.0); Mean Platelet Volume 9.8 fL (9.4-12.4); Platelet Count 209 X10*3/uL (160-400); Red Blood Count 3.11 X10*6/uL (4.60-5.80); Red Cell Distribution Width 18.6 % (11.0-16.0); White Blood Count 6.1 X10*3/uL (4.8-10.8)
[2023-06-16 19:13] LABS: Lactic Acid 2.2 mmol/L (0.5-2.0)
[2023-06-16 19:14] LABS: Creatinine Clr Calc Pharmacy 15.3; Estimated Glomerular Filt Rate 12
[2023-06-16 19:15] LABS: Anion Gap 17 (12-20); Blood Urea Nitrogen 54 mg/dL (9-16); Calcium 9.4 mg/dL (8.4-10.2); Carbon Dioxide 23 mmol/L (22-29); Chloride 108 mmol/L (96-108); Glucose Random 154 mg/dL (60-115); Sodium 143 mmol/L (135-145)
[2023-06-16 19:36] LABS: Cancel Lactic Acid Canceled
[2023-06-16 19:37] LABS: Reflex Lactate? No addnl Lactic Acid
[2023-06-16 20:31] LABS: Glucose, Whole Blood 138 mg/dL (60-115)
[2023-06-17] MEDS: 0.9 % Sodium Chloride Flush 3 ML SYRINGE IVFLUSH ×4 (00:12→22:56)
[2023-06-17] MEDS: Pantoprazole Sodium 40 MG/10 ML VIAL IVPUSH ×3 (00:12→22:58)
[2023-06-17 01:12] LABS: Glucose, Whole Blood 144 mg/dL (60-115)
[2023-06-17 03:24] VITALS: BP 105/56; PULSE 65; RESP 20; TEMP 36.9; O2SAT 99
[2023-06-17] MEDS: Octreotide Acetate 500 MCG in 0.9 % Sodium Chloride 500 ML 50.1 MCG IVCONT (05:19)
[2023-06-17 06:21] LABS: Hematocrit 29.7 % (42.0-52.0); Hemoglobin 10.2 g/dl (14.0-18.0); Mean Corpuscular HGB Conc 34.3 g/dl (31.0-36.0); Mean Corpuscular Hemoglobin 31.4 pg (27.0-33.0); Mean Corpuscular Volume 91.4 fL (80.0-98.0); Platelet Count 215 X10*3/uL (160-400); Red Blood Count 3.25 X10*6/uL (4.60-5.80); Red Cell Distribution Width 18.5 % (11.0-16.0); White Blood Count 7.7 X10*3/uL (4.8-10.8)
[2023-06-17 06:28] LABS: Anion Gap 17 (12-20); Blood Urea Nitrogen 52 mg/dL (9-16); Calcium 9.1 mg/dL (8.4-10.2); Carbon Dioxide 19 mmol/L (22-29); Chloride 110 mmol/L (96-108); Creatinine Clr Calc Pharmacy 15.4; Estimated Glomerular Filt Rate 12; Glucose Random 162 mg/dL (60-115); Potassium 3.9 mmol/L (3.3-5.1); Sodium 142 mmol/L (135-145)
[2023-06-17 07:19] VITALS: BP 102/65; PULSE 61; RESP 20; TEMP 36.7; O2SAT 96
[2023-06-17 07:23] LABS: Glucose, Whole Blood 149 mg/dL (60-115)
--- NOTE | 2023-06-17 09:02 | P.PNIM_ITS ---
Subjective Subjective Date of Service: 06/17/23 Interval History: f/u on hepatic encephalopathy, PENNY on CKD renal function is stable, remains confused but overall better Physical Exam 2 Vital Signs: Vital Signs: Last Vital Signs Temp 98.0 F 06/17/23 07:19 Pulse 61 06/17/23 07:19 Resp 20 06/17/23 07:19 BP 102/65 06/17/23 07:19 Pulse Ox 96 06/17/23 07:19 O2 Del Method Nasal Cannula 06/17/23 07:19 O2 Flow Rate 2 06/17/23 07:19 Oxygen Flow Rate 2 06/15/23 18:39 BMI result Body Mass Index 27.8 Obese elderly gentleman Pale appearing, nonicteric Abdomen soft, distended, positive wave More extremity edema Awake and oriented to self, and hospital, no asterixis Objective Data Active Medications Bisacodyl (Bisacodyl 10 Mg Supp.Rect) 10 mg ME DAILY PRN PRN Reason: Constipation Folic Acid (Folic Acid 1 Mg Tablet) 1 mg PO DAILY MIRIAM Gabapentin (Gabapentin 100 Mg Capsule) 100 mg PO TID [facility] Last Admin: 06/16/23 21:24 Dose: Not Given Documented By: TERESA Non-Admin Reason: Nausea Glucose (Glucose Gel 15 Gm Gel..Gram.) 15 gm PO Q15M PRN; Protocol PRN Reason: per Hypoglycemia Standing Ord. Ceftriaxone Sodium 1 gm/ (Sodium Chloride) 50 mls @ 100 mls/hr IV Q24H [facility] Last Infusion: 06/16/23 22:10 Dose: Infused Documented By: TERESA Octreotide Acetate 500 mcg/ (Sodium Chloride) 501 mls @ 50.1 mls/hr IVCONT .Q10H [facility] Last Admin: 06/17/23 05:19 Dose: 50 mcg/hr, 50.1 mls/hr Documented By: CHANEL Dextrose (D10) 250 mls @ 750 mls/hr IV Q15M PRN; Protocol PRN Reason: per Hypoglycemia Standing Ord. Insulin Human Lispro (Insulin Lispro 100 Unit/Ml 3 Ml Vial) 0 unit SUBCUT Q6H [facility]; Protocol Last Admin: 06/17/23 01:16 Dose: Not Given Documented By: CHANEL Non-Admin Reason: No Insulin Coverage Comments: POC 144 Lactulose (Lactulose 20 Gm/30 Ml Solution) 30 gm PO TID [facility] Last Admin: 06/16/23 21:24 Dose: Not Given Documented By: TERESA Non-Admin Reason: Nausea Lorazepam (Lorazepam 2 Mg/Ml Vial) 1 mg IVPUSH ONCE PRN PRN Reason: Seizures Midodrine (Midodrine Hcl 10 Mg Tablet) 10 mg PO TID@0900,1300,1700 [facility] Last Admin: 06/16/23 18:30 Dose: 10 mg Documented By: NORI Multivitamins/Vitamin C (Multivitamin Tablet) 1 tab PO DAILY [facility] Naltrexone HCl (Naltrexone Hcl 50 Mg Tablet) 50 mg PO DAILY [facility] Nystatin (Nystatin Powder 15 Gm Bottle) 1 appl TOPICAL DAILY [facility]; Protocol Ondansetron HCl (Ondansetron Hcl 4 Mg/2 Ml Vial) 4 mg IVPUSH Q8H PRN PRN Reason: Nausea and Vomiting Pantoprazole Sodium (Pantoprazole Sodium 40 Mg/10 Ml Vial) 40 mg IVPUSH Q12H [facility] Last Admin: 06/17/23 00:12 Dose: 40 mg Documented By: CHANEL Rifaximin (Rifaximin 550 Mg Tablet) 550 mg PO BID [facility] Last Admin: 06/16/23 21:24 Dose: Not Given Documented By: TERESA Non-Admin Reason: Nausea Sertraline HCl (Sertraline Hcl 100 Mg Tablet) 100 mg PO DAILY [facility] Sodium Bicarbonate (Sodium Bicarbonate 650 Mg Tablet) 650 mg PO TID [facility] Last Admin: 06/16/23 21:24 Dose: Not Given Documented By: TERESA Non-Admin Reason: Nausea Sodium Biphosphate/Sodium Phosphate (Sodium Phosphate,George-Dibasic 133 Ml Enema) 118 ml ME DAILY PRN PRN Reason: Constipation Sodium Chloride (0.9 % Sodium Chloride Flush 3 Ml Syringe) 3 ml IVFLUSH QSHIFT [facility] Last Admin: 06/17/23 00:12 Dose: 3 ml Documented By: CHANEL Thiamine HCl (Thiamine Hcl 100 Mg Tablet) 100 mg PO DAILY [facility] Labs 06/17/23 05:53 06/17/23 05:53 Labs: Laboratory Results - last 24 hr 06/16/23 06/16/23 06/16/23 04:34 04:34 04:34 MCV MCH MCHC RDW Plt Count MPV Absolute Nucleated RBC Nucleated RBC % (auto) Anion Gap Estim Creat Clear Calc Estimated GFR POC Glucose Random Glucose Lactic Acid Calcium Iron TNP 21 L TIBC TNP 64 L % Saturation TNP Unsat Iron Binding Ferritin Blood Type Antibody Screen Crossmatch 06/16/23 06/16/23 06/16/23 04:34 04:34 04:34 MCV MCH MCHC RDW Plt Count MPV Absolute Nucleated RBC Nucleated RBC % (auto) Anion Gap Estim Creat Clear Calc Estimated GFR POC Glucose Random Glucose Lactic Acid Calcium Iron TIBC % Saturation 33 Unsat Iron Binding TNP 43 Ferritin TNP 259 H Blood Type Antibody Screen Crossmatch 06/16/23 06/16/23 06/16/23 05:40 11:40 13:39 MCV MCH MCHC RDW Plt Count MPV Absolute Nucleated RBC Nucleated RBC % (auto) Anion Gap 17 Estim Creat Clear Calc 16.2 Estimated GFR 13 POC Glucose 146 H Random Glucose 157 H Lactic Acid Calcium 8.9 Iron TIBC % Saturation Unsat Iron Binding Ferritin Blood Type A Negative Antibody Screen NEGATIVE Crossmatch See Detail 06/16/23 06/16/23 06/16/23 18:28 18:35 20:09 MCV 91.0 MCH 30.9 MCHC 33.9 RDW 18.6 H Plt Count 209 MPV 9.8 Absolute Nucleated RBC 0.000 Nucleated RBC % (auto) 0.0 Anion Gap 17 Estim Creat Clear Calc 15.3 Estimated GFR 12 POC Glucose 131 H 138 H Random Glucose 154 H Lactic Acid 2.2 H* Calcium 9.4 Iron TIBC % Saturation Unsat Iron Binding Ferritin Blood Type Antibody Screen Crossmatch 06/17/23 06/17/23 06/17/23 01:05 05:53 07:11 MCV 91.4 MCH 31.4 MCHC 34.3 RDW 18.5 H Plt Count 215 MPV 10.0 Absolute Nucleated RBC 0.000 Nucleated RBC % (auto) 0.0 Anion Gap 17 Estim Creat Clear Calc 15.4 Estimated GFR 12 POC Glucose 144 H 149 H Random Glucose 162 H Lactic Acid Calcium 9.1 Iron TIBC % Saturation Unsat Iron Binding Ferritin Blood Type Antibody Screen Crossmatch Microbiology Microbiology Results: Microbiology 06/16/23 00:02 Blood Culture - Preliminary Blood - Venous No growth after 24 hours. 06/16/23 00:02 Blood Culture - Preliminary Blood - Venous No growth after 24 hours. 06/15/23 21:41 Urine Culture - Preliminary Urine Catheterized - Straight Catheter No growth to date. Assessment and Plan (1) Acute on chronic renal failure: Status: Acute (2) Acute hepatic encephalopathy: Status: Acute Plan 67-year-old gentleman with history of alcoholic cirrhosis, chronic indwelling urine catheter, orthostatic hypotension on midodrine, GERD, diabetes mellitus type 2 on insulin, recently discharged from [facility] on June 09 after management for decompensated hepatic cirrhosis with ascites and acute kidney injury and readmitted a week later with Hepatic encephalopathy (grade II) triggered by acute infection (UTI), renal failure and possible GI bleeding. -continue lactulose, avoid sedatives Anemia, Concern for esophageal varices bleeding. Transfused 2 units of PRBCs with good effect. for now continue octreotide, PPI and GI input noted Acute on chronic renal failure DDx: ATN, HRS, Pre renal azotemia. Given IV. Nephrology following, hold diuretics for now. Metabolic acidosis--likely from renal on chronic bicab replacement, to hold now per renal and continue monitoring Mild lactic acidosis likely secondary to chronic liver failure. No SIRS criteria. IV fluids given. Continue to monitor. Blood cultures were obtained will follow results. Marked ascites. IR consult for therapeutic paracentesis, sent for cytology, cell count and albumin HFrEF/cardiomyopathy (30-35%). Not currently decompensated. Continue to monitor for symptoms. Catheter-associated urinary tract infection. Continue ceftriaxone.Culture not available Seizure likely secondary to hepatic encephalopathy. Seizure precautions. Ativan IV as needed. Type 2 diabetes mellitus. Blood sugar check with Insulin sliding scale. Mood disorder. Continue sertraline when able. DVT prophylaxis: hold heparin given anemia and concern for gib, Code status: Full need for inpaitent;management for acute hepatic encephalopathy, anemia, hepatorenal syndrome with guarded prognosis Quality Stroke Does the patient have a stroke diagnosis?: No VTE Prior VTE?: No VTE Risk Level:: Medical - moderate - high VTE Device Contraindication: N/A - Device Ordered VTE Drug Contraindication: Treatment Not Indicated
[2023-06-17] MEDS: Thiamine HCL 100 MG TABLET PO (09:31)
[2023-06-17] MEDS: Sodium Bicarbonate 650 MG TABLET PO ×3 (09:31→22:56)
[2023-06-17] MEDS: Naltrexone HCl 50 MG TABLET PO (09:31)
[2023-06-17] MEDS: Folic Acid 1 MG TABLET PO (09:31)
[2023-06-17] MEDS: ondansetron HCL 4 MG/2 ML VIAL IVPUSH (09:31)
[2023-06-17] MEDS: rifAXIMin 550 MG TABLET PO ×2 (09:31→22:55)
[2023-06-17] MEDS: Multivitamin TABLET 1 TAB PO (09:31)
[2023-06-17] MEDS: Midodrine HCl 10 MG TABLET PO ×3 (09:31→18:40)
[2023-06-17] MEDS: Gabapentin 100 MG CAPSULE PO ×3 (09:31→22:55)
[2023-06-17] MEDS: Sertraline HCL 100 MG TABLET PO (09:31)
[2023-06-17] MEDS: Lactulose 20 GM/30 ML SOLUTION 30 GM PO (09:31)
--- NOTE | 2023-06-17 10:35 | MHC.CM.PN ---
IMM 06/17/23 DELIVERED TO PT'S HCP/PARTNER MAAME AT [phone], PER DISCUSSION IMM TO BE SENT VIA CERTIFIED MAIL, MAAME REPORTS PLAN WILL BE FOR PT TO RETURN TO [facility] ONCE MEDICALLY CLEARED WHERE PT HAS BEEN PRIVATE PAYING, CM WILL CONT TO FOLLOW DC NEEDS. HCP/PCP ON FILE VERIFIED.
[2023-06-17 10:53] VITALS: BP 130/62; PULSE 65; RESP 20; TEMP 36.3; O2SAT 98
[2023-06-17] MEDS: Lidocaine HCl 1 % MPF 5 ML VIAL SUBCUT (12:02)
[2023-06-17 12:15] LABS: MN% 87.9 %; PMN% 12.1 %; WBC Peritoneal Fluid 0.161 X10*3/uL
[2023-06-17 12:17] LABS: RBC Peritoneal Fluid < 0.002 X10*6/uL
[2023-06-17] MEDS: Nystatin Powder 15 GM BOTTLE 1 APPL TOPICAL (12:26)
[2023-06-17 12:38] LABS: Glucose, Whole Blood 153 mg/dL (60-115)
[2023-06-17 12:40] VITALS: BP 111/58; PULSE 68; RESP 20; TEMP 36.4; O2SAT 100
--- NOTE | 2023-06-17 12:57 | PM.CNNEP ---
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 According to ED triage note patient was stents and became unresponsive. It seems like he has not been taking his lactulose lately. On evaluation the patient was alert and oriented x3 however, he was confused at time, saying same thoughts multiple times and difficulty talking. Despite this he was able to answer some of my questions. He denied any pain, nausea, vomiting or diarrhea. He denied abdominal pain however, he mentioned that his abdominal girth has been increasing and does have some shortness on breath. He denied chest pain. No fevers chills has been reported. His daughter was at bedside. 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 Orthostatic hypotension Chronic liver disease Type 2 diabetes mellitus Social History Social History Household Members: None Housing: Care Home Do you presently have visiting nurse or other home services: No Alcohol intake: former Patient Tobacco Use Status: Former Tobacco user Substance Use Type: Marijuana service: No Meds Allergies Allergy/AdvReac Type Severity Reaction Status Date / Time lisinopril Allergy Angioedema Verified 06/15/23 18:43 scallops Allergy Angioedema Verified 06/15/23 18:43 Active Medications: Current Medications Bisacodyl (Bisacodyl 10 Mg Supp.Rect) 10 mg [place] DAILY PRN PRN Reason: Constipation Folic Acid (Folic Acid 1 Mg Tablet) 1 mg PO DAILY [facility] Last Admin: 06/17/23 09:31 Dose: 1 mg Gabapentin (Gabapentin 100 Mg Capsule) 100 mg PO TID [facility] Last Admin: 06/17/23 09:31 Dose: 100 mg Glucose (Glucose Gel 15 Gm Gel..Gram.) 15 gm PO Q15M PRN; Protocol PRN Reason: per Hypoglycemia Standing Ord. Ceftriaxone Sodium 1 gm/ (Sodium Chloride) 50 mls @ 100 mls/hr IV Q24H [facility] Last Infusion: 06/16/23 22:10 Dose: Infused Dextrose (D10) 250 mls @ 750 mls/hr IV Q15M PRN; Protocol PRN Reason: per Hypoglycemia Standing Ord. Octreotide Acetate 500 mcg/ (Sodium Chloride) 501 mls @ 50.1 mls/hr IVCONT .Q10H [facility] Insulin Human Lispro (Insulin Lispro 100 Unit/Ml 3 Ml Vial) 0 unit SUBCUT Q6H [facility]; Protocol Last Admin: 06/17/23 09:05 Dose: Not Given Lactulose (Lactulose 20 Gm/30 Ml Solution) 30 gm PO TID [facility] Last Admin: 06/17/23 09:31 Dose: 15 gm Lorazepam (Lorazepam 2 Mg/Ml Vial) 1 mg IVPUSH ONCE PRN PRN Reason: Seizures Midodrine (Midodrine Hcl 10 Mg Tablet) 10 mg PO TID@0900,1300,1700 [facility] Last Admin: 06/17/23 09:31 Dose: 10 mg Multivitamins/Vitamin C (Multivitamin Tablet) 1 tab PO DAILY [facility] Last Admin: 06/17/23 09:31 Dose: 1 tab Naltrexone HCl (Naltrexone Hcl 50 Mg Tablet) 50 mg PO DAILY [facility] Last Admin: 06/17/23 09:31 Dose: 50 mg Nystatin (Nystatin Powder 15 Gm Bottle) 1 appl TOPICAL DAILY [facility]; Protocol Last Admin: 06/17/23 12:26 Dose: 1 appl Ondansetron HCl (Ondansetron Hcl 4 Mg/2 Ml Vial) 4 mg IVPUSH Q8H PRN PRN Reason: Nausea and Vomiting Last Admin: 06/17/23 09:31 Dose: 4 mg Pantoprazole Sodium (Pantoprazole Sodium 40 Mg/10 Ml Vial) 40 mg IVPUSH Q12H [facility] Last Admin: 06/17/23 12:26 Dose: 40 mg Rifaximin (Rifaximin 550 Mg Tablet) 550 mg PO BID [facility] Last Admin: 06/17/23 09:31 Dose: 550 mg Sertraline HCl (Sertraline Hcl 100 Mg Tablet) 100 mg PO DAILY [facility] Last Admin: 06/17/23 09:31 Dose: 100 mg Sodium Bicarbonate (Sodium Bicarbonate 650 Mg Tablet) 650 mg PO TID [facility] Last Admin: 06/17/23 09:31 Dose: 650 mg Sodium Biphosphate/Sodium Phosphate (Sodium Phosphate,[place]-Dibasic 133 Ml Enema) 118 ml MN DAILY PRN PRN Reason: Constipation Sodium Chloride (0.9 % Sodium Chloride Flush 3 Ml Syringe) 3 ml IVFLUSH QSHIFT [facility] Last Admin: 06/17/23 09:31 Dose: 3 ml Thiamine HCl (Thiamine Hcl 100 Mg Tablet) 100 mg PO DAILY [facility] Last Admin: 06/17/23 09:31 Dose: 100 mg Home Medications ?Medication ?Instructions ?Recorded ?Confirmed ?Last Taken ?Type acetaminophen 325 mg tablet 650 mg PO DAILY PRN Fever 04/30/23 06/16/23 Unknown History folic acid 1 mg tablet 1 mg PO DAILY 04/30/23 06/16/23 Unknown History gabapentin 100 mg capsule 100 mg PO TID 04/30/23 06/16/23 Unknown History lactulose 10 gram/15 mL oral 45 ml PO TID 04/30/23 06/16/23 Unknown History solution melatonin 3 mg tablet 3 mg PO BEDTIME Sleep 04/30/23 06/16/23 Unknown History midodrine 10 mg tablet 10 mg PO TID@0600,1200,1800 04/30/23 06/16/23 Unknown History multivitamin 1 tab PO DAILY 04/30/23 06/16/23 Unknown History naltrexone 50 mg tablet 50 mg PO DAILY 04/30/23 06/16/23 Unknown History pantoprazole 40 mg tablet,delayed 40 mg PO DAILY@0600 04/30/23 06/16/23 Unknown History release rifaximin 550 mg tablet (Xifaxan) 550 mg PO BID 04/30/23 06/16/23 Unknown History thiamine HCl (vitamin B1) 100 mg 100 mg PO DAILY 04/30/23 06/16/23 Unknown History tablet bisacodyl 10 mg rectal suppository 10 mg MN DAILY PRN Constipation 05/20/23 06/16/23 Unknown History magnesium hydroxide 400 mg/5 mL 30 ml PO DAILY PRN Constipation 05/20/23 06/16/23 Unknown History oral suspension (Milk of Magnesia) ondansetron HCl 4 mg tablet 4 mg PO Q4H PRN nausea/vomting 05/20/23 06/16/23 Unknown History nystatin 100,000 unit/gram topical 1 appl topical DAILY 06/16/23 06/16/23 Unknown History powder sodium phosphates 19 gram-7 118 ml MN DAILY PRN Constipation 06/16/23 06/16/23 Unknown History gram/118 mL enema (Fleet Enema) Physical Exam Vital Signs: Last Vital Signs Temp 97.6 F 06/17/23 12:40 Pulse 68 06/17/23 12:40 Resp 20 06/17/23 12:40 BP 111/58 L 06/17/23 12:40 Pulse Ox 100 06/17/23 12:40 O2 Del Method Nasal Cannula 06/17/23 12:40 O2 Flow Rate 2 06/17/23 12:40 Oxygen Flow Rate 2 06/15/23 18:39 BMI result Body Mass Index 27.8 Const General: comfortable and no acute distress HEENT Head: Yes normocephalic Mouth: Normal oral and palatal mucosa present Eyes EOM: EOMs intact bilaterally Neck Neck: Yes supple Resp Auscultation: clear to auscultation bilaterally Cardio Jugular venous distension: no JVD Rate: regular rate GI Palpation (GI): Soft to palpation Auscultation: normal bowel sounds General: Yes no CVA tenderness Back/Spine/Pelvis Back: no CVA tenderness Skin General skin exam: no rashes or lesions noted Neuro General: moves all extremities Results Lab Results 06/17/23 05:53 06/18/23 06:14 Lab results: Chemistry 06/15/23 06/16/23 06/16/23 21:33 04:34 11:40 Sodium 137 139 139 Potassium 4.2 D 4.0 3.9 Carbon Dioxide 21 L 18 L 18 L BUN 53 H 52 H 51 H Creatinine 4.68 H* 4.50 H* 4.51 H* Calcium 9.6 9.0 D 8.9 Phosphorus 4.5 06/16/23 06/17/23 18:35 05:53 Sodium 143 142 Potassium 5.0 D 3.9 D Carbon Dioxide 23 19 L BUN 54 H 52 H Creatinine 4.77 H* 4.75 H* Calcium 9.4 9.1 Phosphorus Hematology 06/15/23 06/16/23 06/16/23 21:33 04:35 18:35 WBC 7.1 4.4 L 6.1 Hgb 8.1 L 6.7 L* 9.6 L D Plt Count 272 D 180 D 209 06/17/23 05:53 WBC 7.7 Hgb 10.2 L Plt Count 215 Urinalysis 06/15/23 21:41 Urine Color Dark Yellow Urine Appearance Turbid Urine pH 5.5 Ur Specific [place] 1.020 Urine Protein 300 (3+) H Urine Glucose (UA) Negative Urine Ketones Trace Urine Blood Large (3+) H Urine Nitrite Negative Ur Leukocyte Esterase Large (3+) H Urine RBC >20 H Urine WBC >50 H Ur Squamous Epith Cells 0-2 Hyaline Casts 6-10 Assessment and Plan (1) PENNY (acute kidney injury): Status: Inactive (2) Ascites: Qualifiers: Ascites type: due to alcoholic cirrhosis Qualified Code(s): K70.31 - Alcoholic cirrhosis of liver with ascites Status: Inactive (3) Chronic indwelling Gordon catheter: Status: Inactive (4) Acute on chronic anemia: Status: Resolved Plan 67 yr old man with DOUGIE superimpose don CKD 3 DDX for PENNY : Hypoperfusion from volume depletion /low BP Possible tubular injury/ATN r/o AiN and AGN No obstruction r/o Compartment syndrome from tense ascites Suggest Check urine Na, Cr, Eosinophils, protein Keep SBP > 100 No need for diuretics today Avoid nephrotoxins Paracenthesis to reduce intraabdominal pressure Watch urine out put No indication for dialysis Procedures Date of Service Date of Service: 06/18/23
[2023-06-17 13:14] LABS: BF Shift QC OK YES; Lymphocyte Peritoneal Fl 31 %; Man Diluent Bkgrd OK YES; Monocytes Peritoneal Fl 2 %; Neutrophils Peritoneal Fluid 4 %; Other Peritioneal Fl 63 %
[2023-06-17 16:00] VITALS: BP 120/59; PULSE 67; RESP 18; TEMP 37; O2SAT 96
[2023-06-17 19:28] VITALS: BP 124/60; PULSE 67; RESP 20; TEMP 36.9; O2SAT 100
[2023-06-17 20:54] LABS: Glucose, Whole Blood 133 mg/dL (60-115)
[2023-06-17] MEDS: cefTRIAXone sodium 1 GM in 0.9 % Sodium Chloride 50 ML IV (22:55)
[2023-06-18] VITALS: BP 117/61; PULSE 69; RESP 20; TEMP 36.3
[2023-06-18 01:08] LABS: Glucose, Whole Blood 130 mg/dL (60-115)
[2023-06-18 04:00] VITALS: BP 118/55; PULSE 54; RESP 20; TEMP 37.2
[2023-06-18 06:53] LABS: Anion Gap 18 (12-20); Blood Urea Nitrogen 54 mg/dL (9-16); Calcium 9.4 mg/dL (8.4-10.2); Carbon Dioxide 20 mmol/L (22-29); Chloride 112 mmol/L (96-108); Creatinine Clr Calc Pharmacy 14.4; Estimated Glomerular Filt Rate 11; Glucose Random 135 mg/dL (60-115); Potassium 4.2 mmol/L (3.3-5.1); Sodium 146 mmol/L (135-145)
[2023-06-18 08:00] VITALS: BP 105/56; PULSE 58; RESP 20; TEMP 36.4; O2SAT 100
[2023-06-18 08:15] LABS: Glucose, Whole Blood 123 mg/dL (60-115)
--- NOTE | 2023-06-18 08:57 | HO.PM.IMPN ---
Subjective Subjective Date of Service: 06/18/23 Interval History: f/u on hepatic encephalopathy, PENNY on CKD renal function is worsening, confusion is better, s/p Paracentesis of 5 liters yesterday Physical Exam Vital Signs: Vital Signs: Last Vital Signs Temp 97.6 F 06/18/23 08:00 Pulse 58 06/18/23 08:00 Resp 20 06/18/23 08:00 BP 105/56 L 06/18/23 08:00 Pulse Ox 100 06/18/23 08:00 O2 Del Method Nasal Cannula 06/18/23 08:00 O2 Flow Rate 1 06/18/23 08:00 Oxygen Flow Rate 2 06/15/23 18:39 BMI result Body Mass Index 27.8 General: AO X 2, no acute distress Resp: CTA bilateral CVS: S1,S2,RRR GI: +BS, NT, no distention Skin: No rash Neuro: motor grossly intact Psych: appropriate affect Objective Data Active Medications Bisacodyl (Bisacodyl 10 Mg Supp.Rect) 10 mg [place] DAILY PRN PRN Reason: Constipation Folic Acid (Folic Acid 1 Mg Tablet) 1 mg PO DAILY [facility] Last Admin: 06/17/23 09:31 Dose: 1 mg Documented By: NORI Gabapentin (Gabapentin 100 Mg Capsule) 100 mg PO TID [facility] Last Admin: 06/17/23 22:55 Dose: 100 mg Documented By: RAEANN Glucose (Glucose Gel 15 Gm Gel..Gram.) 15 gm PO Q15M PRN; Protocol PRN Reason: per Hypoglycemia Standing Ord. Ceftriaxone Sodium 1 gm/ (Sodium Chloride) 50 mls @ 100 mls/hr IV Q24H [facility] Last Infusion: 06/17/23 23:25 Dose: Infused Documented By: RAEANN Dextrose (D10) 250 mls @ 750 mls/hr IV Q15M PRN; Protocol PRN Reason: per Hypoglycemia Standing Ord. Lactated Ringer's (Lr) 1,000 mls @ 50 mls/hr IVCONT .Q20H [facility] Stop: 06/19/23 04:59 Insulin Human Lispro (Insulin Lispro 100 Unit/Ml 3 Ml Vial) 0 unit SUBCUT Q6H [facility]; Protocol Last Admin: 06/18/23 07:31 Dose: Not Given Documented By: RAINA Non-Admin Reason: No Insulin Coverage Lactulose (Lactulose 20 Gm/30 Ml Solution) 30 gm PO TID [facility] Last Admin: 06/17/23 23:45 Dose: Not Given Documented By: RAEANN Non-Admin Reason: Patient refused. Lorazepam (Lorazepam 2 Mg/Ml Vial) 1 mg IVPUSH ONCE PRN PRN Reason: Seizures Midodrine (Midodrine Hcl 10 Mg Tablet) 10 mg PO TID@0900,1300,1700 [facility] Last Admin: 06/17/23 18:40 Dose: 10 mg Documented By: NORI Multivitamins/Vitamin C (Multivitamin Tablet) 1 tab PO DAILY [facility] Last Admin: 06/17/23 09:31 Dose: 1 tab Documented By: NORI Naltrexone HCl (Naltrexone Hcl 50 Mg Tablet) 50 mg PO DAILY [facility] Last Admin: 06/17/23 09:31 Dose: 50 mg Documented By: NORI Nystatin (Nystatin Powder 15 Gm Bottle) 1 appl TOPICAL DAILY [facility]; Protocol Last Admin: 06/17/23 12:26 Dose: 1 appl Documented By: NORI Ondansetron HCl (Ondansetron Hcl 4 Mg/2 Ml Vial) 4 mg IVPUSH Q8H PRN PRN Reason: Nausea and Vomiting Last Admin: 06/17/23 09:31 Dose: 4 mg Documented By: NORI Pantoprazole Sodium (Pantoprazole Sodium 40 Mg/10 Ml Vial) 40 mg IVPUSH Q12H [facility] Last Admin: 06/17/23 22:58 Dose: 40 mg Documented By: RAEANN Rifaximin (Rifaximin 550 Mg Tablet) 550 mg PO BID [facility] Last Admin: 06/17/23 22:55 Dose: 550 mg Documented By: RAEANN Sertraline HCl (Sertraline Hcl 100 Mg Tablet) 100 mg PO DAILY [facility] Last Admin: 06/17/23 09:31 Dose: 100 mg Documented By: NORI Sodium Bicarbonate (Sodium Bicarbonate 650 Mg Tablet) 650 mg PO TID [facility] Last Admin: 06/17/23 22:56 Dose: 650 mg Documented By: RAEANN Sodium Biphosphate/Sodium Phosphate (Sodium Phosphate,[place]-Dibasic 133 Ml Enema) 118 ml NV DAILY PRN PRN Reason: Constipation Sodium Chloride (0.9 % Sodium Chloride Flush 3 Ml Syringe) 3 ml IVFLUSH QSHIFT [facility] Last Admin: 06/17/23 22:56 Dose: 3 ml Documented By: RAEANN Thiamine HCl (Thiamine Hcl 100 Mg Tablet) 100 mg PO DAILY [facility] Last Admin: 06/17/23 09:31 Dose: 100 mg Documented By: NORI Labs 06/17/23 05:53 06/18/23 06:14 Labs: Laboratory Results - last 24 hr 06/16/23 06/17/23 06/17/23 04:35 11:30 12:30 Smear Path Review SEE NOTE Anion Gap Estim Creat Clear Calc Estimated GFR POC Glucose 153 H Random Glucose Calcium Peritoneal WBC 0.161 Peritoneal RBC < 0.002 Periton Neutrophils 4 Periton Lymphocytes 31 Peritoneal Monocytes 2 Peritoneal Other Cells 63 06/17/23 06/18/23 06/18/23 20:36 00:57 06:14 Smear Path Review Anion Gap 18 Estim Creat Clear Calc 14.4 Estimated GFR 11 POC Glucose 133 H 130 H Random Glucose 135 H Calcium 9.4 Peritoneal WBC Peritoneal RBC Periton Neutrophils Periton Lymphocytes Peritoneal Monocytes Peritoneal Other Cells 06/18/23 08:11 Smear Path Review Anion Gap Estim Creat Clear Calc Estimated GFR POC Glucose 123 H Random Glucose Calcium Peritoneal WBC Peritoneal RBC Periton Neutrophils Periton Lymphocytes Peritoneal Monocytes Peritoneal Other Cells Microbiology Microbiology Results: Microbiology 06/17/23 11:30 Gram Stain - Final Paracentesis Fluid Anaerobic Culture - Preliminary No growth to date. Body Fluid Culture - Preliminary No growth to date. 06/15/23 21:41 Urine Culture - Preliminary Urine Catheterized - Straight Catheter Yeast 06/16/23 00:02 Blood Culture - Preliminary Blood - Venous No growth after 48 hours. 06/16/23 00:02 Blood Culture - Preliminary Blood - Venous No growth after 48 hours. Assessment and Plan (1) Acute on chronic renal failure: Status: Acute (2) Acute hepatic encephalopathy: Status: Acute Plan 67-year-old gentleman with history of alcoholic cirrhosis, chronic indwelling urine catheter, orthostatic hypotension on midodrine, GERD, diabetes mellitus type 2 on insulin, recently discharged from [facility] on June 09 after management for decompensated hepatic cirrhosis with ascites and acute kidney injury and readmitted a week later with Hepatic encephalopathy (grade II) triggered by acute infection (UTI), renal failure and possible GI bleeding. overall better -continue lactulose, avoid sedatives Anemia, Concern for esophageal varices bleeding. Transfused 2 units of PRBCs with good effect. for now continue octreotide, PPI and GI recommends no endoscopy at this time Acute on chronic renal failure DDx: ATN, HRS, Pre renal azotemia. Given IV. Nephrology following, hold diuretics for now. Cr is worse and will try some IVF and continue to monitor Metabolic acidosis--likely from renal on chronic bicab replacement, to hold now per renal and continue monitoring Mild lactic acidosis likely secondary to chronic liver failure. No SIRS criteria. IV fluids given. Continue to monitor. Blood cultures negative Marked ascites. IR removed 5 L on 06/16 HFrEF/cardiomyopathy (30-35%). Not currently decompensated. Continue to monitor for symptoms. Catheter-associated urinary tract infection. Culture growing yeast , likely contamination Seizure likely secondary to hepatic encephalopathy. Seizure precautions. Ativan IV as needed. Type 2 diabetes mellitus. Blood sugar check with Insulin sliding scale. Mood disorder. Continue sertraline when able. DVT prophylaxis: hold heparin given anemia and concern for gib, Code status: Full need for inpaitent;management for acute hepatic encephalopathy, anemia, hepatorenal syndrome with guarded prognosis Quality Stroke Does the patient have a stroke diagnosis?: No VTE Prior VTE?: No VTE Risk Level:: Medical - moderate - high VTE Device Contraindication: N/A - Device Ordered VTE Drug Contraindication: Treatment Not Indicated
[2023-06-18] MEDS: Multivitamin TABLET 1 TAB PO (09:09)
[2023-06-18] MEDS: rifAXIMin 550 MG TABLET PO ×2 (09:09→21:33)
[2023-06-18] MEDS: Naltrexone HCl 50 MG TABLET PO (09:09)
[2023-06-18] MEDS: Folic Acid 1 MG TABLET PO (09:09)
[2023-06-18] MEDS: Sodium Bicarbonate 650 MG TABLET PO ×3 (09:09→21:33)
[2023-06-18] MEDS: Sertraline HCL 100 MG TABLET PO (09:09)
[2023-06-18] MEDS: Thiamine HCL 100 MG TABLET PO (09:09)
[2023-06-18] MEDS: Midodrine HCl 10 MG TABLET PO ×3 (09:09→16:54)
[2023-06-18] MEDS: Gabapentin 100 MG CAPSULE PO ×3 (09:09→21:33)
[2023-06-18] MEDS: Lactated Ringers 1,000 ML 50 ML IVCONT (09:18)
[2023-06-18] MEDS: Nystatin Powder 15 GM BOTTLE 1 APPL TOPICAL (09:23)
[2023-06-18 11:43] VITALS: BP 110/53; PULSE 60; RESP 20; TEMP 36.3; O2SAT 100
[2023-06-18 12:26] LABS: Glucose, Whole Blood 156 mg/dL (60-115)
[2023-06-18] MEDS: Pantoprazole Sodium 40 MG/10 ML VIAL IVPUSH (12:56)
--- NOTE | 2023-06-18 14:43 | P.PNNP_ITS ---
Subjective Subjective Date of Service: 06/19/23 Interval history: Events noted. Status post paracentesis 5 L was removed Physical Exam 2 Vital Signs: Vital Signs: Last Vital Signs Temp 97.4 F 06/18/23 11:43 Pulse 60 06/18/23 11:43 Resp 20 06/18/23 11:43 BP 110/53 L 06/18/23 11:43 Pulse Ox 100 06/18/23 11:43 O2 Del Method Nasal Cannula 06/18/23 11:43 O2 Flow Rate 2 06/18/23 11:43 Oxygen Flow Rate 2 06/15/23 18:39 BMI result Body Mass Index 27.8 Const: General: comfortable and no acute distress HEENT: Head: Yes normocephalic Mouth: Normal oral and palatal mucosa present Eyes: EOM: EOMs intact bilaterally Neck: Neck: Yes supple Resp: Auscultation: clear to auscultation bilaterally Cardio: Jugular venous distension: no JVD Rate: regular rate GI: Palpation (GI): Soft to palpation Auscultation: normal bowel sounds : General: Yes no CVA tenderness Back/Spine/Pelvis: Back: no CVA tenderness Skin: General skin exam: no rashes or lesions noted Neuro: General: moves all extremities Objective Data Labs 06/19/23 09:48 06/19/23 09:48 Labs: Laboratory Results - last 24 hr 06/16/23 06/17/23 06/18/23 04:35 20:36 00:57 Smear Path Review SEE NOTE Sodium Potassium Chloride Carbon Dioxide Anion Gap BUN Creatinine Estim Creat Clear Calc Estimated GFR POC Glucose 133 H 130 H Random Glucose Calcium 06/18/23 06/18/23 06/18/23 06:14 08:11 12:22 Smear Path Review Sodium 146 H Potassium 4.2 Chloride 112 H Carbon Dioxide 20 L Anion Gap 18 BUN 54 H Creatinine 5.06 H* Estim Creat Clear Calc 14.4 Estimated GFR 11 POC Glucose 123 H 156 H Random Glucose 135 H Calcium 9.4 Microbiology Microbiology Results: Microbiology 06/17/23 11:30 Paracentesis Fluid Gram Stain - Final 06/17/23 11:30 Paracentesis Fluid Anaerobic Culture - Preliminary No growth to date. 06/17/23 11:30 Paracentesis Fluid Body Fluid Culture - Preliminary No growth to date. 06/15/23 21:41 Urine Catheterized - Straight Catheter Urine Culture - Preliminary Yeast 06/16/23 00:02 Blood - Venous Blood Culture - Preliminary No growth after 48 hours. 06/16/23 00:02 Blood - Venous Blood Culture - Preliminary No growth after 48 hours. Procedures Date of Service Date of Service: 06/19/23 Assessment & Plan Assessment and plan (1) PENNY (acute kidney injury): Status: Inactive (2) Ascites: Status: Inactive (3) Chronic indwelling Gordon catheter: Status: Inactive (4) Acute on chronic anemia: Status: Resolved Plan 67 yr old man with DOUGIE superimpose don CKD 3 DDX for PENNY : Hypoperfusion from volume depletion /low BP Possible tubular injury/ATN r/o AiN and AGN No obstruction r/o Compartment syndrome from tense ascites Suggest Keep SBP > 100 No need for diuretics today Cautiously hydrate with normal saline at 50 cc/hour x1 L especially since he is NPO for possible EGD Avoid nephrotoxins Paracenthesis p.r.n. Watch urine out put No indication for dialysis yet Time Spent With Patient Time: Total time managing care of this patient today ____ minutes. Progress Note: Quality Stroke Does the patient have a stroke diagnosis?: No
[2023-06-18 16:00] VITALS: BP 108/61; PULSE 57; RESP 18; TEMP 36.4; O2SAT 98
[2023-06-18 19:18] LABS: Total Protein Peritoneal Fluid 3.2
[2023-06-18 20:00] VITALS: BP 120/59; PULSE 53; RESP 18; TEMP 36.2; O2SAT 100
[2023-06-18 20:50] LABS: Glucose, Whole Blood 174 mg/dL (60-115)
[2023-06-18] MEDS: cefTRIAXone sodium 1 GM in 0.9 % Sodium Chloride 50 ML IV (21:33)
[2023-06-18] MEDS: 0.9 % Sodium Chloride Flush 3 ML SYRINGE IVFLUSH (21:34)
[2023-06-18] MEDS: Insulin Lispro 100 UNIT/ML 3 ML VIAL SUBCUT (21:38)
[2023-06-19] VITALS (7 sets, daily range): BP systolic 109–121; BP diastolic 50–66; PULSE 53–70; RESP 18–20; TEMP 36.2–36.8; O2SAT 92–100
[2023-06-19 04:00] LABS: Glucose, Whole Blood 125 mg/dL (60-115)
[2023-06-19] MEDS: Melatonin 3 MG TABLET 6 MG PO ×2 (04:03→21:58)
[2023-06-19 07:51] LABS: Glucose, Whole Blood 150 mg/dL (60-115)
--- NOTE | 2023-06-19 08:38 | HO.PM.IMPN ---
Subjective Subjective Date of Service: 06/19/23 Interval History: f/u on hepatic encephalopathy, PENNY on CKD renal function is worsening, confusion is better, s/p Paracentesis of 5 liters on 06/16 He is completly lucid now Physical Exam Vital Signs: Vital Signs: Last Vital Signs Temp 97.2 F 06/19/23 07:24 Pulse 60 06/19/23 07:24 Resp 20 06/19/23 07:24 BP 109/62 06/19/23 07:24 Pulse Ox 96 06/19/23 07:24 O2 Del Method Nasal Cannula 06/19/23 07:24 O2 Flow Rate 2 06/19/23 07:24 Oxygen Flow Rate 2 06/15/23 18:39 BMI result Body Mass Index 27.8 General: AO X 3, no acute distress Resp: CTA bilateral CVS: S1,S2,RRR GI: +BS, NT, mild distention Skin: No rash Neuro: motor grossly intact Psych: appropriate affect Objective Data Active Medications Bisacodyl (Bisacodyl 10 Mg Supp.Rect) [address] DAILY PRN PRN Reason: Constipation Folic Acid (Folic Acid 1 Mg Tablet) 1 mg PO DAILY [facility] Last Admin: 06/18/23 09:09 Dose: 1 mg Documented By: RAINA Gabapentin (Gabapentin 100 Mg Capsule) 100 mg PO TID [facility] Last Admin: 06/18/23 21:33 Dose: 100 mg Documented By: RAEANN Glucose (Glucose Gel 15 Gm Gel..Gram.) 15 gm PO Q15M PRN; Protocol PRN Reason: per Hypoglycemia Standing Ord. Ceftriaxone Sodium 1 gm/ (Sodium Chloride) 50 mls @ 100 mls/hr IV Q24H [facility] Last Infusion: 06/18/23 22:05 Dose: Infused Documented By: RAEANN Dextrose (D10) 250 mls @ 750 mls/hr IV Q15M PRN; Protocol PRN Reason: per Hypoglycemia Standing Ord. Insulin Human Lispro (Insulin Lispro 100 Unit/Ml 3 Ml Vial) 0 unit SUBCUT Q6H [facility]; Protocol Last Admin: 06/19/23 04:08 Dose: Not Given Documented By: RAEANN Non-Admin Reason: POC WNL Comments: Patient requested POC be checked earlier so he could go back to sleep Lactulose (Lactulose 20 Gm/30 Ml Solution) 30 gm PO TID [facility] Last Admin: 06/18/23 21:43 Dose: Not Given Documented By: RAEANN Non-Admin Reason: Patient refused Lorazepam (Lorazepam 2 Mg/Ml Vial) 1 mg IVPUSH ONCE PRN PRN Reason: Seizures Melatonin (Melatonin 3 Mg Tablet) 6 mg PO BEDTIME PRN PRN Reason: Insomnia Last Admin: 06/19/23 04:03 Dose: 6 mg Documented By: RAEANN Midodrine (Midodrine Hcl 10 Mg Tablet) 10 mg PO TID@0900,1300,1700 [facility] Last Admin: 06/18/23 16:54 Dose: 10 mg Documented By: SMITH Multivitamins/Vitamin C (Multivitamin Tablet) 1 tab PO DAILY [facility] Last Admin: 06/18/23 09:09 Dose: 1 tab Documented By: RAINA Naltrexone HCl (Naltrexone Hcl 50 Mg Tablet) 50 mg PO DAILY [facility] Last Admin: 06/18/23 09:09 Dose: 50 mg Documented By: RAINA Nystatin (Nystatin Powder 15 Gm Bottle) 1 appl TOPICAL DAILY [facility]; Protocol Last Admin: 06/18/23 09:23 Dose: 1 appl Documented By: RAINA Ondansetron HCl (Ondansetron Hcl 4 Mg/2 Ml Vial) 4 mg IVPUSH Q8H PRN PRN Reason: Nausea and Vomiting Last Admin: 06/17/23 09:31 Dose: 4 mg Documented By: NORI Rifaximin (Rifaximin 550 Mg Tablet) 550 mg PO BID [facility] Last Admin: 06/18/23 21:33 Dose: 550 mg Documented By: RAEANN Sertraline HCl (Sertraline Hcl 100 Mg Tablet) 100 mg PO DAILY [facility] Last Admin: 06/18/23 09:09 Dose: 100 mg Documented By: RAINA Sodium Bicarbonate (Sodium Bicarbonate 650 Mg Tablet) 650 mg PO TID [facility] Last Admin: 06/18/23 21:33 Dose: 650 mg Documented By: RAEANN Sodium Biphosphate/Sodium Phosphate (Sodium Phosphate,[place]-Dibasic 133 Ml Enema) [address] DAILY PRN PRN Reason: Constipation Sodium Chloride (0.9 % Sodium Chloride Flush 3 Ml Syringe) 3 ml IVFLUSH QSHIFT [facility] Last Admin: 06/18/23 21:34 Dose: 3 ml Documented By: RAEANN Thiamine HCl (Thiamine Hcl 100 Mg Tablet) 100 mg PO DAILY [facility] Last Admin: 06/18/23 09:09 Dose: 100 mg Documented By: RAINA Labs 06/17/23 05:53 06/18/23 06:14 Labs: Laboratory Results - last 24 hr 06/17/23 06/18/23 06/18/23 11:30 12:22 20:13 POC Glucose 156 H 174 H Peritoneal Tot Protein 3.2 06/19/23 06/19/23 03:51 07:27 POC Glucose 125 H 150 H Peritoneal Tot Protein Microbiology Microbiology Results: Microbiology 06/15/23 21:41 Urine Culture - Final Urine Catheterized - Straight Catheter Yesy glabrata 06/17/23 11:30 Gram Stain - Final Paracentesis Fluid Anaerobic Culture - Preliminary No growth to date. Body Fluid Culture - Preliminary No growth to date. Assessment and Plan (1) Acute on chronic renal failure: Status: Acute (2) Acute hepatic encephalopathy: Status: Acute Plan 67-year-old gentleman with history of alcoholic cirrhosis, chronic indwelling urine catheter, orthostatic hypotension on midodrine, GERD, diabetes mellitus type 2 on insulin, recently discharged from [facility] on June 09 after management for decompensated hepatic cirrhosis with ascites and acute kidney injury and readmitted a week later with Hepatic encephalopathy (grade II) triggered by acute infection (UTI), renal failure and possible GI bleeding. Confusion resolved. -continue lactulose. repeat ammonia Anemia, initial concern for esophageal varices bleeding. Transfused 2 units of PRBCs with good effect. Was on octreotide but stopped. continue PPI and GI recommends no endoscopy at this time Acute on chronic renal failure DDx: ATN, HRS, Pre renal azotemia. Creatine rising, continue IVF, nephrology following Metabolic acidosis--likely from renal failure on chronic bicab replacement Mild lactic acidosis likely secondary to chronic liver failure. No SIRS criteria. IV fluids given. Continue to monitor. Blood cultures negative Marked ascites. IR removed 5 L on 06/16 HFrEF/cardiomyopathy (30-35%). Not currently decompensated. Continue to monitor for symptoms. Catheter-associated urinary tract infection. Yesy glabarta, has been on Ceftriaxone, DC and add Diflucan Seizure likely secondary to hepatic encephalopathy. Seizure precautions. Ativan IV as needed. Type 2 diabetes mellitus. Blood sugar check with Insulin sliding scale. Mood disorder. Continue sertraline when able. DVT prophylaxis: hold heparin given anemia and concern for gib, Code status: Full need for inpaitent;management for acute hepatic encephalopathy, anemia, hepatorenal syndrome with guarded prognosis Quality Stroke Does the patient have a stroke diagnosis?: No VTE Prior VTE?: No VTE Risk Level:: Medical - moderate - high VTE Device Contraindication: N/A - Device Ordered VTE Drug Contraindication: Treatment Not Indicated
[2023-06-19] MEDS: Sertraline HCL 100 MG TABLET PO (09:02)
[2023-06-19] MEDS: Gabapentin 100 MG CAPSULE PO ×3 (09:02→20:43)
[2023-06-19] MEDS: Midodrine HCl 10 MG TABLET PO ×3 (09:02→18:05)
[2023-06-19] MEDS: Naltrexone HCl 50 MG TABLET PO (09:02)
[2023-06-19] MEDS: Folic Acid 1 MG TABLET PO (09:02)
[2023-06-19] MEDS: Thiamine HCL 100 MG TABLET PO (09:02)
[2023-06-19] MEDS: rifAXIMin 550 MG TABLET PO ×2 (09:02→20:43)
[2023-06-19] MEDS: Multivitamin TABLET 1 TAB PO (09:02)
[2023-06-19] MEDS: Sodium Bicarbonate 650 MG TABLET PO ×3 (09:02→20:43)
[2023-06-19] MEDS: Fluconazole 100 MG TABLET PO (09:02)
[2023-06-19] MEDS: Omeprazole 40 MG CAPSULE.DR PO (09:02)
[2023-06-19] MEDS: Nystatin Powder 15 GM BOTTLE 1 APPL TOPICAL (09:03)
[2023-06-19] MEDS: Lactulose 20 GM/30 ML SOLUTION 30 GM PO (09:09)
[2023-06-19 10:14] LABS: Hematocrit 33.9 % (42.0-52.0); Hemoglobin 11.4 g/dl (14.0-18.0); Mean Corpuscular HGB Conc 33.6 g/dl (31.0-36.0); Mean Corpuscular Hemoglobin 31.1 pg (27.0-33.0); Mean Corpuscular Volume 92.4 fL (80.0-98.0); PLT CLUMP 1; Red Blood Count 3.67 X10*6/uL (4.60-5.80); Red Cell Distribution Width 18.2 % (11.0-16.0)
[2023-06-19 10:23] LABS: Ammonia 28 umol/L (13-55)
[2023-06-19 10:24] LABS: Anion Gap 17 (12-20); Blood Urea Nitrogen 56 mg/dL (9-16); Calcium 8.9 mg/dL (8.4-10.2); Carbon Dioxide 20 mmol/L (22-29); Chloride 111 mmol/L (96-108); Creatinine Clr Calc Pharmacy 13.9; Estimated Glomerular Filt Rate 11; Glucose Random 160 mg/dL (60-115); Potassium 4.2 mmol/L (3.3-5.1); Sodium 144 mmol/L (135-145)
[2023-06-19 11:49] LABS: Platelet Count 131 X10*3/uL (160-400); White Blood Count 7.8 X10*3/uL (4.8-10.8)
[2023-06-19 12:55] LABS: Glucose, Whole Blood 161 mg/dL (60-115)
[2023-06-19] MEDS: Insulin Lispro 100 UNIT/ML 3 ML VIAL SUBCUT (13:58)
[2023-06-19] MEDS: 0.9 % Sodium Chloride Flush 3 ML SYRINGE IVFLUSH (18:06)
[2023-06-19 19:32] LABS: Glucose, Whole Blood 128 mg/dL (60-115)
--- NOTE | 2023-06-19 19:54 | P.PNNP_ITS ---
Subjective Subjective Date of Service: 06/19/23 Interval history: s/p Paracentesis of 5 liters on 06/16; Serum creatinine plateauing Physical Exam 2 Vital Signs: Vital Signs: Last Vital Signs Temp 97.6 F 06/19/23 19:24 Pulse 65 06/19/23 19:24 Resp 19 06/19/23 19:24 BP 110/54 L 06/19/23 19:24 Pulse Ox 92 06/19/23 19:24 O2 Del Method Nasal Cannula 06/19/23 19:24 O2 Flow Rate 3 06/19/23 19:24 Oxygen Flow Rate 2 06/15/23 18:39 BMI result Body Mass Index 27.8 Const: General: comfortable and no acute distress HEENT: Head: Yes normocephalic Mouth: Normal oral and palatal mucosa present Eyes: EOM: EOMs intact bilaterally Neck: Neck: Yes supple Resp: Auscultation: clear to auscultation bilaterally Cardio: Jugular venous distension: no JVD Rate: regular rate GI: Palpation (GI): Soft to palpation Auscultation: normal bowel sounds Neuro: General: moves all extremities Objective Data Labs 06/19/23 09:48 06/19/23 09:48 Labs: Laboratory Results - last 24 hr 06/18/23 06/19/23 06/19/23 20:13 03:51 07:27 WBC RBC Hgb Hct MCV MCH MCHC RDW Plt Count MPV Absolute Nucleated RBC Nucleated RBC % (auto) Sodium Potassium Chloride Carbon Dioxide Anion Gap BUN Creatinine Estim Creat Clear Calc Estimated GFR POC Glucose 174 H 125 H 150 H Random Glucose Calcium Ammonia 06/19/23 06/19/23 06/19/23 09:48 12:46 19:28 WBC 7.8 RBC 3.67 L Hgb 11.4 L Hct 33.9 L MCV 92.4 MCH 31.1 MCHC 33.6 RDW 18.2 H Plt Count 131 L D MPV Not Reportable Absolute Nucleated RBC 0.000 Nucleated RBC % (auto) 0.0 Sodium 144 Potassium 4.2 Chloride 111 H Carbon Dioxide 20 L Anion Gap 17 BUN 56 H Creatinine 5.25 H* Estim Creat Clear Calc 13.9 Estimated GFR 11 POC Glucose 161 H 128 H Random Glucose 160 H Calcium 8.9 Ammonia 28 Microbiology Microbiology Results: Microbiology 06/17/23 11:30 Paracentesis Fluid Gram Stain - Final 06/17/23 11:30 Paracentesis Fluid Anaerobic Culture - Preliminary No growth to date. 06/17/23 11:30 Paracentesis Fluid Body Fluid Culture - Final No growth after 2 days 06/15/23 21:41 Urine Catheterized - Straight Catheter Urine Culture - Final Yesy glabrata 06/16/23 00:02 Blood - Venous Blood Culture - Preliminary No growth after 48 hours. 06/16/23 00:02 Blood - Venous Blood Culture - Preliminary No growth after 48 hours. Procedures Date of Service Date of Service: 06/19/23 Assessment & Plan Assessment and plan (1) Acute on chronic renal failure: Status: Acute Plan 67 yr old man with PENNY superimposed on CKD 3 PENNY likely due to hypoperfusion from volume depletion /low BP Possible tubular injury; Serum creatinine plateauing;DDx- HRS No indication for dialysis yet; Labs AM; Shall F/U Progress Note: Quality Stroke Does the patient have a stroke diagnosis?: No
[2023-06-20] MEDS: 0.9 % Sodium Chloride Flush 3 ML SYRINGE IVFLUSH ×4 (00:15→21:06)
[2023-06-20 01:03] LABS: Glucose, Whole Blood 159 mg/dL (60-115)
[2023-06-20] MEDS: Insulin Lispro 100 UNIT/ML 3 ML VIAL SUBCUT ×2 (01:25→17:04)
[2023-06-20 03:13] VITALS: BP 122/62; PULSE 50; RESP 19; TEMP 36.2; O2SAT 100
[2023-06-20] MEDS: Omeprazole 40 MG CAPSULE.DR PO (06:29)
[2023-06-20 06:50] LABS: Glucose, Whole Blood 104 mg/dL (60-115)
[2023-06-20 07:03] LABS: Anion Gap 16 (12-20); Blood Urea Nitrogen 61 mg/dL (9-16); Calcium 9.1 mg/dL (8.4-10.2); Carbon Dioxide 23 mmol/L (22-29); Chloride 108 mmol/L (96-108); Estimated Glomerular Filt Rate 10; Glucose Random 114 mg/dL (60-115); Potassium 3.9 mmol/L (3.3-5.1); Sodium 143 mmol/L (135-145)
[2023-06-20 07:54] LABS: Glucose, Whole Blood 110 mg/dL (60-115)
[2023-06-20 08:00] VITALS: BP 110/55; PULSE 62; RESP 20; TEMP 36.3; O2SAT 100
[2023-06-20] MEDS: Multivitamin TABLET 1 TAB PO (09:00)
[2023-06-20] MEDS: rifAXIMin 550 MG TABLET PO ×2 (09:00→21:05)
[2023-06-20] MEDS: Fluconazole 100 MG TABLET PO (09:00)
[2023-06-20] MEDS: Naltrexone HCl 50 MG TABLET PO (09:01)
[2023-06-20] MEDS: Sodium Bicarbonate 650 MG TABLET PO (09:01)
[2023-06-20] MEDS: Sertraline HCL 100 MG TABLET PO (09:01)
[2023-06-20] MEDS: Folic Acid 1 MG TABLET PO (09:01)
[2023-06-20] MEDS: Thiamine HCL 100 MG TABLET PO (09:01)
[2023-06-20] MEDS: Gabapentin 100 MG CAPSULE PO ×3 (09:01→21:05)
[2023-06-20] MEDS: Midodrine HCl 10 MG TABLET PO ×3 (09:01→17:01)
[2023-06-20] MEDS: Nystatin Powder 15 GM BOTTLE 1 APPL TOPICAL (09:04)
[2023-06-20 11:24] LABS: Glucose, Whole Blood 127 mg/dL (60-115)
[2023-06-20 11:43] VITALS: BP 113/59; PULSE 54; RESP 20; TEMP 36.1; O2SAT 90
--- NOTE | 2023-06-20 13:43 | HO.PM.IMPN ---
Subjective Subjective Date of Service: 06/20/23 Interval History: Being followed for acute on chronic renal disease, anemia patient denies hematemesis, no melena, denies lightheadedness or dizziness, tolerating diet no nausea, no vomiting ,no abdominal pain ,or diarrhea, no acute events overnight, melatonin 6 mg help with sleep last night. Review of Systems All other system reviewed and negative. Physical Exam Vital Signs: Vital Signs: Last Vital Signs Temp 97 F 06/20/23 11:43 Pulse 54 06/20/23 11:43 Resp 20 06/20/23 11:43 BP 113/59 L 06/20/23 11:43 Pulse Ox 90 L 06/20/23 11:43 O2 Del Method Nasal Cannula 06/20/23 11:43 O2 Flow Rate 2 06/20/23 11:43 Oxygen Flow Rate 2 06/15/23 18:39 BMI result Body Mass Index 27.8 Const: Other: General awake alert x3, in no acute distress. Neck supple no JVD. CVS regular rate rhythm, Respiratory lungs clear to auscultation, no respiratory distress, no wheeze, no rhonchi. Gastrointestinal abdomen soft, non tender, bowel sounds audible, no guarding , no rigidity. Extremities no edema. Neuro non focal Skin no rash Psych appropriate affect Objective Data Active Medications Bisacodyl (Bisacodyl 10 Mg Supp.Rect) 10 mg SC DAILY PRN PRN Reason: Constipation Fluconazole (Fluconazole 100 Mg Tablet) 100 mg PO DAILY [facility] Last Admin: 06/20/23 09:00 Dose: 100 mg Documented By: JOHNNY Folic Acid (Folic Acid 1 Mg Tablet) 1 mg PO DAILY [facility] Last Admin: 06/20/23 09:01 Dose: 1 mg Documented By: JOHNNY Gabapentin (Gabapentin 100 Mg Capsule) 100 mg PO TID [facility] Last Admin: 06/20/23 09:01 Dose: 100 mg Documented By: JOHNNY Glucose (Glucose Gel 15 Gm Gel..Gram.) 15 gm PO Q15M PRN; Protocol PRN Reason: per Hypoglycemia Standing Ord. Dextrose (D10) 250 mls @ 750 mls/hr IV Q15M PRN; Protocol PRN Reason: per Hypoglycemia Standing Ord. Insulin Human Lispro (Insulin Lispro 100 Unit/Ml 3 Ml Vial) 0 unit SUBCUT Q6H [facility]; Protocol Last Admin: 06/20/23 13:26 Dose: Not Given Documented By: JOHNNY Non-Admin Reason: No Insulin Coverage Lactulose (Lactulose 20 Gm/30 Ml Solution) 30 gm PO TID [facility] Last Admin: 06/20/23 09:04 Dose: Not Given Documented By: JOHNNY Non-Admin Reason: Patient Refused Lorazepam (Lorazepam 2 Mg/Ml Vial) 1 mg IVPUSH ONCE PRN PRN Reason: Seizures Melatonin (Melatonin 3 Mg Tablet) 6 mg PO BEDTIME PRN PRN Reason: Insomnia Last Admin: 06/19/23 21:58 Dose: 6 mg Documented By: HEATH Comments: Dr Aníbal mcgovern to give now Midodrine (Midodrine Hcl 10 Mg Tablet) 10 mg PO TID@0900,1300,1700 [facility] Last Admin: 06/20/23 09:01 Dose: 10 mg Documented By: JOHNNY Multivitamins/Vitamin C (Multivitamin Tablet) 1 tab PO DAILY [facility] Last Admin: 06/20/23 09:00 Dose: 1 tab Documented By: JOHNNY Naltrexone HCl (Naltrexone Hcl 50 Mg Tablet) 50 mg PO DAILY [facility] Last Admin: 06/20/23 09:01 Dose: 50 mg Documented By: JOHNNY Nystatin (Nystatin Powder 15 Gm Bottle) 1 appl TOPICAL DAILY [facility]; Protocol Last Admin: 06/20/23 09:04 Dose: 1 appl Documented By: JOHNNY Omeprazole (Omeprazole 40 Mg Teresa.) 40 mg PO DAILY@0630 [facility] Last Admin: 06/20/23 06:29 Dose: 40 mg Documented By: CHANEL Ondansetron HCl (Ondansetron Hcl 4 Mg/2 Ml Vial) 4 mg IVPUSH Q8H PRN PRN Reason: Nausea and Vomiting Last Admin: 06/17/23 09:31 Dose: 4 mg Documented By: NORI Rifaximin (Rifaximin 550 Mg Tablet) 550 mg PO BID [facility] Last Admin: 06/20/23 09:00 Dose: 550 mg Documented By: JOHNNY Sertraline HCl (Sertraline Hcl 100 Mg Tablet) 100 mg PO DAILY [facility] Last Admin: 06/20/23 09:01 Dose: 100 mg Documented By: JOHNNY Sodium Bicarbonate (Sodium Bicarbonate 650 Mg Tablet) 650 mg PO TID [facility] Last Admin: 06/20/23 09:01 Dose: 650 mg Documented By: JOHNNY Sodium Biphosphate/Sodium Phosphate (Sodium Phosphate,[place]-Dibasic 133 Ml Enema) 118 ml SC DAILY PRN PRN Reason: Constipation Sodium Chloride (0.9 % Sodium Chloride Flush 3 Ml Syringe) 3 ml IVFLUSH QSHIFT [facility] Last Admin: 06/20/23 09:04 Dose: 3 ml Documented By: JOHNNY Thiamine HCl (Thiamine Hcl 100 Mg Tablet) 100 mg PO DAILY [facility] Last Admin: 06/20/23 09:01 Dose: 100 mg Documented By: JOHNNY Labs 06/19/23 09:48 06/20/23 06:23 Labs: Laboratory Results - last 24 hr 06/19/23 06/20/23 06/20/23 19:28 00:57 06:23 Anion Gap 16 Estim Creat Clear Calc 13.0 Estimated GFR 10 POC Glucose 128 H 159 H Random Glucose 114 Calcium 9.1 06/20/23 06/20/23 06/20/23 06:46 07:41 11:07 Anion Gap Estim Creat Clear Calc Estimated GFR POC Glucose 104 110 127 H Random Glucose Calcium Microbiology Microbiology Results: Microbiology 06/17/23 11:30 Gram Stain - Final Paracentesis Fluid Anaerobic Culture - Preliminary No growth to date. Body Fluid Culture - Final No growth after 2 days Assessment and Plan (1) Acute on chronic renal failure: Status: Acute (2) Acute hepatic encephalopathy: Status: Acute Plan 67-year-old gentleman with history of alcoholic cirrhosis, chronic indwelling urine catheter, orthostatic hypotension on midodrine, GERD, diabetes mellitus type 2 on insulin, recently discharged from [facility] [place] on June 09 after management for decompensated hepatic cirrhosis with ascites and acute kidney injury and readmitted a week later with Hepatic encephalopathy (grade II) triggered by acute infection (UTI), renal failure and possible GI bleeding. Confusion resolved. -continue lactulose. repeat ammonia 28 Anemia, initial concern for esophageal varices bleeding. Transfused 2 units of PRBCs with good effect. s/p octreotide,continue PPI GI recommends no endoscopy at this time. Acute on chronic renal failure DDx: ATN, HRS, Pre renal azotemia, creatinine continued to trend up,s/p IVF, case discussed with Nephrology they recommend to follow BMP, no indication for dialysis, follow BMP . Metabolic acidosis--likely from renal failure, bicarb improved to 23 will discontinue bicarb replacement . Mild lactic acidosis likely secondary to chronic liver failure. No SIRS criteria. IV fluids given, Blood cultures negative Marked ascites. IR removed 5 L on 06/16, no recurrent accumulation HFrEF/cardiomyopathy (30-35%). No acute decompensation, continue close clinical follow-up. Catheter-associated urinary tract infection. Yesy glabarta,on Diflucan d2 Seizure likely secondary to hepatic encephalopathy. Seizure precautions, no recurrent seizures noted. IV Ativan 1 mg as needed Type [address] on diabetic diet and monitor poc qid/ac, continue Insulin sliding scale. Mood disorder. Continue sertraline. DVT prophylaxis: Compression boots, hold heparin given anemia and concern for gib, Code status: Full need for inpaitent;management for acute hepatic encephalopathy, anemia, acute on chronic kidney disease with guarded prognosis. Quality Stroke Does the patient have a stroke diagnosis?: No VTE Prior VTE?: No VTE Risk Level:: Medical - moderate - high VTE Device Contraindication: N/A - Device Ordered VTE Drug Contraindication: Treatment Not Indicated
--- NOTE | 2023-06-20 14:16 | P.PNNP_ITS ---
Subjective Subjective Date of Service: 06/25/23 Interval history: Events noted Physical Exam 2 Vital Signs: Vital Signs: Last Vital Signs Temp 97 F 06/20/23 11:43 Pulse 54 06/20/23 11:43 Resp 20 06/20/23 11:43 BP 113/59 L 06/20/23 11:43 Pulse Ox 90 L 06/20/23 11:43 O2 Del Method Nasal Cannula 06/20/23 11:43 O2 Flow Rate 2 06/20/23 11:43 Oxygen Flow Rate 2 06/15/23 18:39 BMI result Body Mass Index 27.8 Const: General: comfortable and no acute distress HEENT: Head: Yes normocephalic Mouth: Normal oral and palatal mucosa present Eyes: EOM: EOMs intact bilaterally Neck: Neck: Yes supple Resp: Auscultation: clear to auscultation bilaterally Cardio: Jugular venous distension: no JVD Rate: regular rate GI: Palpation (GI): Soft to palpation Auscultation: normal bowel sounds : General: Yes no CVA tenderness Back/Spine/Pelvis: Back: no CVA tenderness Skin: General skin exam: no rashes or lesions noted Neuro: General: moves all extremities Objective Data Labs 06/21/23 17:54 06/24/23 09:48 Labs: Laboratory Results - last 24 hr 06/19/23 06/20/23 06/20/23 19:28 00:57 06:23 Sodium 143 Potassium 3.9 Chloride 108 Carbon Dioxide 23 Anion Gap 16 BUN 61 H Creatinine 5.61 H* Estim Creat Clear Calc 13.0 Estimated GFR 10 POC Glucose 128 H 159 H Random Glucose 114 Calcium 9.1 06/20/23 06/20/23 06/20/23 06:46 07:41 11:07 Sodium Potassium Chloride Carbon Dioxide Anion Gap BUN Creatinine Estim Creat Clear Calc Estimated GFR POC Glucose 104 110 127 H Random Glucose Calcium Microbiology Microbiology Results: Microbiology 06/17/23 11:30 Paracentesis Fluid Gram Stain - Final 06/17/23 11:30 Paracentesis Fluid Anaerobic Culture - Preliminary No growth to date. 06/17/23 11:30 Paracentesis Fluid Body Fluid Culture - Final No growth after 2 days 06/15/23 21:41 Urine Catheterized - Straight Catheter Urine Culture - Final Yesy glabrata 06/16/23 00:02 Blood - Venous Blood Culture - Preliminary No growth after 48 hours. 06/16/23 00:02 Blood - Venous Blood Culture - Preliminary No growth after 48 hours. Procedures Date of Service Date of Service: 06/25/23 Assessment & Plan Assessment and plan (1) PENNY (acute kidney injury): Status: Inactive (2) Ascites: Status: Inactive (3) Chronic indwelling Gordon catheter: Status: Inactive (4) Acute on chronic anemia: Status: Resolved Plan 67 yr old man with DOUGIE superimpose don CKD 3 DDX for PENNY : Hypoperfusion from volume depletion /low BP Possible tubular injury/ATN r/o AiN and AGN No obstruction r/o Compartment syndrome from tense ascites Suggest Keep SBP > 100 No need for diuretics Cautiously hydrate with normal saline at 50 cc/hour x1 L especially since he is NPO for possible EGD Avoid nephrotoxins Paracenthesis p.r.n. Watch urine out put No indication for dialysis yet Time Spent With Patient Time: Total time managing care of this patient today ____ minutes. Progress Note: Quality Stroke Does the patient have a stroke diagnosis?: No
--- NOTE | 2023-06-20 15:09 | MHC.CM.PN ---
NURSE CHOWDARY FROM [facility] ([phone]) (PT/FAMILY WORKING WITH THIS AGENCY)CALLED TO INQUIRE IF THIS CM WAS AWARE IF A FAMILY MEETING HAD BEEN SET UP. CM SPOKE WITH PT WHO IS AGREEABLE TO CM SHARING INFORMATION WITH EPI AND WILL ALSO BE AGREEABLE TO A FAMILY MEETING WITH DAUGHTER ZAID BUT PT STATES HE WILL CONTACT HER. CM WILL CONTINUE TO FOLLOW FOR ANY CHANGE TO DC PLAN/NEEDS.
[2023-06-20 15:58] VITALS: BP 105/56; PULSE 57; RESP 20; TEMP 36.8; O2SAT 99
[2023-06-20 16:50] LABS: Glucose, Whole Blood 152 mg/dL (60-115)
[2023-06-20 19:10] VITALS: BP 117/61; PULSE 62; RESP 20; TEMP 36.8; O2SAT 93
[2023-06-20 20:51] LABS: Glucose, Whole Blood 124 mg/dL (60-115)
[2023-06-20] MEDS: Melatonin 3 MG TABLET 6 MG PO (21:05)
[2023-06-20] MEDS: Lactulose 20 GM/30 ML SOLUTION 30 GM PO (21:05)
[2023-06-21] VITALS: BP 118/66; PULSE 59; RESP 19; TEMP 36.5; O2SAT 92
[2023-06-21 04:00] VITALS: BP 110/62; PULSE 58; RESP 19; TEMP 36.3; O2SAT 95
[2023-06-21] MEDS: Omeprazole 40 MG CAPSULE.DR PO (06:48)
[2023-06-21 07:39] VITALS: BP 95/46; PULSE 50; RESP 20; TEMP 35.7; O2SAT 100
[2023-06-21 07:50] LABS: Glucose, Whole Blood 131 mg/dL (60-115)
[2023-06-21] MEDS: Fluconazole 100 MG TABLET PO (09:23)
[2023-06-21] MEDS: Thiamine HCL 100 MG TABLET PO (09:23)
[2023-06-21] MEDS: Lactulose 20 GM/30 ML SOLUTION 30 GM PO ×2 (09:23→22:24)
[2023-06-21] MEDS: Folic Acid 1 MG TABLET PO (09:23)
[2023-06-21] MEDS: Multivitamin TABLET 1 TAB PO (09:23)
[2023-06-21] MEDS: Sertraline HCL 100 MG TABLET PO (09:23)
[2023-06-21] MEDS: Gabapentin 100 MG CAPSULE PO ×3 (09:23→22:23)
[2023-06-21] MEDS: rifAXIMin 550 MG TABLET PO ×2 (09:23→22:23)
[2023-06-21] MEDS: Midodrine HCl 10 MG TABLET PO ×3 (09:23→17:02)
[2023-06-21] MEDS: Naltrexone HCl 50 MG TABLET PO (09:23)
[2023-06-21] MEDS: 0.9 % Sodium Chloride Flush 3 ML SYRINGE IVFLUSH ×3 (09:37→22:30)
[2023-06-21] MEDS: Nystatin Powder 15 GM BOTTLE 1 APPL TOPICAL (09:38)
[2023-06-21] MEDS: Albumin Human 25 % 100 ML IV ×3 (10:23→22:29)
--- NOTE | 2023-06-21 11:04 | HO.PM.IMPN ---
Subjective Subjective Date of Service: 06/21/23 Interval History: Offers no complaint of nausea, no vomiting, no pain, no lightheadedness, no dizziness, no confusion, no tremors, no fevers, no chills, requesting for ice tea or coffee or diet sprite, no acute events overnight noted to have soft blood pressure this a.m. and a temp of 96.3. Review of Systems All other system reviewed and are negative. Physical Exam Vital Signs: Vital Signs: Last Vital Signs Temp 96.3 F L 06/21/23 07:39 Pulse 50 06/21/23 07:39 Resp 20 06/21/23 07:39 BP 95/46 L 06/21/23 07:39 Pulse Ox 100 06/21/23 07:39 O2 Del Method Nasal Cannula 06/21/23 07:39 O2 Flow Rate 2 06/21/23 07:39 Oxygen Flow Rate 2 06/15/23 18:39 BMI result Body Mass Index 27.8 Const: Other: General awake alert x3, in no acute distress. Neck supple no JVD. CVS regular rate rhythm, Respiratory lungs clear to auscultation, no respiratory distress, no wheeze, no rhonchi. Gastrointestinal abdomen soft, non tender, bowel sounds audible, no guarding , no rigidity. Extremities no edema. Neuro non focal ,no asterixis Skin no rash Psych appropriate affect Objective Data Active Medications Bisacodyl (Bisacodyl 10 Mg Supp.Rect) 10 mg [place] DAILY PRN PRN Reason: Constipation Fluconazole (Fluconazole 100 Mg Tablet) 100 mg PO DAILY [facility] Last Admin: 06/21/23 09:23 Dose: 100 mg Documented By: HEATH Folic Acid (Folic Acid 1 Mg Tablet) 1 mg PO DAILY [facility] Last Admin: 06/21/23 09:23 Dose: 1 mg Documented By: HEATH Gabapentin (Gabapentin 100 Mg Capsule) 100 mg PO TID [facility] Last Admin: 06/21/23 09:23 Dose: 100 mg Documented By: HEATH Glucose (Glucose Gel 15 Gm Gel..Gram.) 15 gm PO Q15M PRN; Protocol PRN Reason: per Hypoglycemia Standing Ord. Dextrose (D10) 250 mls @ 750 mls/hr IV Q15M PRN; Protocol PRN Reason: per Hypoglycemia Standing Ord. Albumin Human (Kedbumin 25 %) 100 mls @ 100 mls/hr IV Q6H [facility] Stop: 06/24/23 04:29 Last Admin: 06/21/23 10:23 Dose: 100 mls/hr Documented By: HEATH Insulin Human Lispro (Insulin Lispro 100 Unit/Ml 3 Ml Vial) 0 unit SUBCUT QIDACHS [facility]; Protocol Last Admin: 06/21/23 07:54 Dose: Not Given Documented By: HEATH Non-Admin Reason: No Insulin Coverage Lactulose (Lactulose 20 Gm/30 Ml Solution) 30 gm PO TID [facility] Last Admin: 06/21/23 09:23 Dose: 30 gm Documented By: HEATH Melatonin (Melatonin 3 Mg Tablet) 6 mg PO BEDTIME PRN PRN Reason: Insomnia Last Admin: 06/20/23 21:05 Dose: 6 mg Documented By: MAYCO Midodrine (Midodrine Hcl 10 Mg Tablet) 10 mg PO TID@0900,1300,1700 [facility] Last Admin: 06/21/23 09:23 Dose: 10 mg Documented By: HEATH Multivitamins/Vitamin C (Multivitamin Tablet) 1 tab PO DAILY [facility] Last Admin: 06/21/23 09:23 Dose: 1 tab Documented By: HEATH Naltrexone HCl (Naltrexone Hcl 50 Mg Tablet) 50 mg PO DAILY [facility] Last Admin: 06/21/23 09:23 Dose: 50 mg Documented By: HEATH Nystatin (Nystatin Powder 15 Gm Bottle) 1 appl TOPICAL DAILY [facility]; Protocol Last Admin: 06/21/23 09:38 Dose: 1 appl Documented By: HEATH Omeprazole (Omeprazole 40 Mg Capsule.Dr) 40 mg PO DAILY@0630 [facility] Last Admin: 06/21/23 06:48 Dose: 40 mg Documented By: MAYCO Ondansetron HCl (Ondansetron Hcl 4 Mg/2 Ml Vial) 4 mg IVPUSH Q8H PRN PRN Reason: Nausea and Vomiting Last Admin: 06/17/23 09:31 Dose: 4 mg Documented By: NORI Rifaximin (Rifaximin 550 Mg Tablet) 550 mg PO BID [facility] Last Admin: 06/21/23 09:23 Dose: 550 mg Documented By: HEATH Sertraline HCl (Sertraline Hcl 100 Mg Tablet) 100 mg PO DAILY [facility] Last Admin: 06/21/23 09:23 Dose: 100 mg Documented By: HEATH Sodium Biphosphate/Sodium Phosphate (Sodium Phosphate,[place]-Dibasic 133 Ml Enema) 118 ml [place] DAILY PRN PRN Reason: Constipation Sodium Chloride (0.9 % Sodium Chloride Flush 3 Ml Syringe) 3 ml IVFLUSH QSHIFT [facility] Last Admin: 06/21/23 09:37 Dose: 3 ml Documented By: HEATH Thiamine HCl (Thiamine Hcl 100 Mg Tablet) 100 mg PO DAILY [facility] Last Admin: 06/21/23 09:23 Dose: 100 mg Documented By: HEATH Labs 06/19/23 09:48 06/20/23 06:23 Labs: Laboratory Results - last 24 hr 06/20/23 06/20/23 06/20/23 11:07 16:46 20:46 POC Glucose 127 H 152 H 124 H 06/21/23 07:37 POC Glucose 131 H Microbiology Microbiology Results: Microbiology 06/17/23 11:30 Gram Stain - Final Paracentesis Fluid Anaerobic Culture - Preliminary No growth to date. Body Fluid Culture - Final No growth after 2 days 06/16/23 00:02 Blood Culture - Final Blood - Venous No growth after 5 days. 06/16/23 00:02 Blood Culture - Final Blood - Venous No growth after 5 days. Assessment and Plan (1) Acute on chronic renal failure: Status: Acute (2) Acute hepatic encephalopathy: Status: Acute Plan 67-year-old gentleman with history of alcoholic cirrhosis, chronic indwelling urine catheter, orthostatic hypotension on midodrine, GERD, diabetes mellitus type 2 on insulin, recently discharged from [facility] on June 09 after management for decompensated hepatic cirrhosis with ascites and acute kidney injury and readmitted a week later with Hepatic encephalopathy (grade II) triggered by acute infection (UTI), renal failure and possible GI bleeding. Confusion resolved. -continue lactulose. repeat ammonia 28 Acute on chronic normocytic Anemia, likely multifactorial ,no acute GI bleed noted, iron studies not consistent with iron deficiency, recent endoscopy [facility] 05/04 showed no portal hypertensive gastropathy or varices . Transfused 2 units of PRBCs with good effect. s/p octreotide,continue PPI , Seen by GI ,no endoscopy recommended at this time. Acute on chronic renal failure DDx: ATN, HRS, Pre renal azotemia, creatinine continued to trend up,s/p IVF, case discussed with Nephrology they recommend IV albumin 25 g q.6 hours x3 days,follow BMP, no indication for dialysis, avoid nephrotoxins , mild acute hypothermia resolved, no sepsis. Chronic hypotension continue midodrine, added albumin follow BP. Chronic Metabolic acidosis--likely from renal failure, bicarb improved to 23 will discontinue bicarb replacement . Mild chronic lactic acidosis likely secondary to chronic liver failure. No SIRS criteria. IV fluids given, Blood cultures negative Marked ascites. IR removed 5 L on 06/16, no recurrent accumulation HFrEF/cardiomyopathy (30-35%). No acute decompensation, continue close clinical follow-up. Catheter-associated urinary tract infection. Yesy glabarta,on Diflucan d 3 Seizure likely secondary to hepatic encephalopathy. Seizure precautions, no recurrent seizures noted. IV Ativan 1 mg as needed Type 2 diabetes mellitus. on diabetic diet , monitor poc qid/ac, continue Insulin sliding scale. Mood disorder. Continue sertraline. DVT prophylaxis: Compression boots, hold heparin given anemia and concern for gib, Code status: Full need for inpaitent;management for acute hepatic encephalopathy, anemia, acute on chronic kidney disease with guarded prognosis, need daily labs and medication adjustment. Quality Stroke Does the patient have a stroke diagnosis?: No VTE Prior VTE?: No VTE Risk Level:: Medical - moderate - high VTE Device Contraindication: N/A - Device Ordered VTE Drug Contraindication: Treatment Not Indicated
[2023-06-21 11:12] VITALS: BP 102/55; PULSE 102; RESP 20; TEMP 36.2; O2SAT 100
--- NOTE | 2023-06-21 11:29 | P.CDIM_ITS ---
PROVIDER RESPONSE TEXT: To clarify, the appropriate diagnosis supported by the clinical indicators: Other (explain): chronic QUERY TEXT: PHYSICIAN'S DOCUMENTATION REQUEST Date of Query: 06/21/2023 09:13 AM EDT Patient Name: Andres Torres Admit Date: 06/16/2023 Dear Mihaela Marie, A review of the medical record indicates additional documentation may be needed. Please review below and update the documentation accordingly. Clinical Indicators: Per Hospitalist Progress Note 06/10/23: Mild lactic acidosis likely secondary to chronic liver failure. No SIRS criteria. IV fluids given, Bl ood cultures negative Clarify which of the following accurately represents the acuity of the Lactic Acidosis. Possible options might include: Acute Acute on chronic Compensated Chronic stable condition Remission Other (explain) Clinically unable to determine (explain) Thank you, Tresa Vazquez RN Use of terms such as suspected, likely, concern for, or probable (associated with a specific diagnosi s that is being evaluated, monitored, or treated as if it exists) are acceptable and can be coded in the inpatient se tting, when documented at the time of discharge. Please use your independent medical judgment in providing your response. THIS QUERY IS PART OF THE PERMANENT MEDICAL RECORD
[2023-06-21 11:52] LABS: Glucose, Whole Blood 132 mg/dL (60-115)
--- NOTE | 2023-06-21 12:59 | MHC.CM.PN ---
EMR REVIEWED, PT W/ACUTE HEPATIC ENCEPHALOPATHY, PT NOT YET READY FOR DC D/T NEED FOR DAILY LABS AND MONITORING, PT WILL RETURN TO [facility] ONCE MEDICALLY CLEARED, MAY BE OVER W/E, IMM 06/21/23 DELIVERED TO PT'S MAAME AT NUMBER ON FILE.
[2023-06-21 13:38] LABS: Complement C3 28 mg/dL (82-185)
[2023-06-21 16:00] VITALS: BP 111/53; PULSE 53; RESP 20; TEMP 36.5; O2SAT 100
[2023-06-21 16:20] LABS: Glucose, Whole Blood 153 mg/dL (60-115)
[2023-06-21 16:47] LABS: OBS Int Ctl Valid YES; OBS1 NEGATIVE (NEGATIVE)
[2023-06-21] MEDS: Insulin Lispro 100 UNIT/ML 3 ML VIAL SUBCUT ×2 (17:02→22:30)
[2023-06-21 18:38] LABS: Hematocrit 29.5 % (42.0-52.0); Hemoglobin 9.9 g/dl (14.0-18.0); Mean Corpuscular HGB Conc 33.6 g/dl (31.0-36.0); Mean Corpuscular Hemoglobin 30.5 pg (27.0-33.0); Mean Corpuscular Volume 90.8 fL (80.0-98.0); Mean Platelet Volume 9.8 fL (9.4-12.4); Platelet Count 189 X10*3/uL (160-400); Red Blood Count 3.25 X10*6/uL (4.60-5.80); Red Cell Distribution Width 17.8 % (11.0-16.0)
[2023-06-21 18:47] LABS: Anion Gap 19 (12-20); Blood Urea Nitrogen 64 mg/dL (9-16); Calcium 9.4 mg/dL (8.4-10.2); Carbon Dioxide 18 mmol/L (22-29); Chloride 108 mmol/L (96-108); Creatinine Clr Calc Pharmacy 12.4; Estimated Glomerular Filt Rate 10; Glucose Random 160 mg/dL (60-115); Potassium 3.3 mmol/L (3.3-5.1); Sodium 142 mmol/L (135-145)
--- NOTE | 2023-06-21 18:50 | P.PNNP_ITS ---
Subjective Subjective Date of Service: 06/21/23 Interval history: Denies uremic symptoms. All recent data reviewed; D/W hospitalist Physical Exam 2 Vital Signs: Vital Signs: Last Vital Signs Temp 97.7 F 06/21/23 16:00 Pulse 53 06/21/23 16:00 Resp 20 06/21/23 16:00 BP 111/53 L 06/21/23 16:00 Pulse Ox 100 06/21/23 16:00 O2 Del Method Room Air 06/21/23 16:00 O2 Flow Rate 2 06/21/23 07:39 Oxygen Flow Rate 2 06/15/23 18:39 BMI result Body Mass Index 27.8 Const: General: comfortable and no acute distress O rientation/consciousness: patient oriented x3 HEENT: Head: Yes normocephalic Mouth: Normal oral and palatal mucosa present Eyes: EOM: EOMs intact bilaterally Neck: Neck: Yes supple Resp: Auscultation: clear to auscultation bilaterally Cardio: Jugular venous distension: no JVD Rate: regular rate GI: Palpation (GI): Soft to palpation Auscultation: normal bowel sounds : General: Yes no CVA tenderness Back/Spine/Pelvis: Back: no CVA tenderness Skin: General skin exam: no rashes or lesions noted Neuro: General: patient oriented x3 and moves all extremities Objective Data Labs 06/21/23 17:54 06/21/23 17:54 Labs: Laboratory Results - last 24 hr 06/20/23 06/20/23 06/21/23 06:23 20:46 07:37 WBC RBC Hgb Hct MCV MCH MCHC RDW Plt Count MPV Absolute Nucleated RBC Nucleated RBC % (auto) Sodium Potassium Chloride Carbon Dioxide Anion Gap BUN Creatinine Estim Creat Clear Calc Estimated GFR POC Glucose 124 H 131 H Random Glucose Calcium Stool Occult Blood Complement C3 28 L Complement C4 7 L 06/21/23 06/21/23 06/21/23 11:43 16:00 16:11 WBC RBC Hgb Hct MCV MCH MCHC RDW Plt Count MPV Absolute Nucleated RBC Nucleated RBC % (auto) Sodium Potassium Chloride Carbon Dioxide Anion Gap BUN Creatinine Estim Creat Clear Calc Estimated GFR POC Glucose 132 H 153 H Random Glucose Calcium Stool Occult Blood NEGATIVE Complement C3 Complement C4 06/21/23 17:54 WBC 7.0 RBC 3.25 L Hgb 9.9 L Hct 29.5 L MCV 90.8 MCH 30.5 MCHC 33.6 RDW 17.8 H Plt Count 189 D MPV 9.8 Absolute Nucleated RBC 0.000 Nucleated RBC % (auto) 0.0 Sodium 142 Potassium 3.3 Chloride 108 Carbon Dioxide 18 L Anion Gap 19 BUN 64 H Creatinine 5.86 H* Estim Creat Clear Calc 12.4 Estimated GFR 10 POC Glucose Random Glucose 160 H Calcium 9.4 Stool Occult Blood Complement C3 Complement C4 Microbiology Microbiology Results: Microbiology 06/17/23 11:30 Paracentesis Fluid Gram Stain - Final 06/17/23 11:30 Paracentesis Fluid Anaerobic Culture - Preliminary No growth to date. 06/17/23 11:30 Paracentesis Fluid Body Fluid Culture - Final No growth after 2 days 06/16/23 00:02 Blood - Venous Blood Culture - Final No growth after 5 days. 06/16/23 00:02 Blood - Venous Blood Culture - Final No growth after 5 days. 06/15/23 21:41 Urine Catheterized - Straight Catheter Urine Culture - Final Yesy glabrata Procedures Date of Service Date of Service: 06/21/23 Assessment & Plan Assessment and plan (1) Acute on chronic renal failure: Status: Acute Plan 67 yr old man with PENNY superimposed on CKD 3 PENNY likely due to hypoperfusion from volume depletion /low BP Possible tubular injury; Serum creatinine plateauing;DDx- HRS HAs underlying HRS 2 at baseline; Started IV Albumin No indication for dialysis yet; Labs AM; Shall F/U Progress Note: Quality Stroke Does the patient have a stroke diagnosis?: No
[2023-06-21 20:00] VITALS: BP 94/52; PULSE 103; RESP 19; TEMP 36.7; O2SAT 98
[2023-06-21 20:08] LABS: Glucose, Whole Blood 144 mg/dL (60-115)
[2023-06-22] VITALS (7 sets, daily range): BP systolic 86–107; BP diastolic 37–59; PULSE 52–67; RESP 18–20; TEMP 36.2–36.6; O2SAT 95–99
[2023-06-22] MEDS: Omeprazole 40 MG CAPSULE.DR PO (04:48)
[2023-06-22] MEDS: Albumin Human 25 % 100 ML IV ×4 (04:48→20:53)
[2023-06-22 07:43] LABS: Anion Gap 17 (12-20); Blood Urea Nitrogen 64 mg/dL (9-16); Calcium 9.3 mg/dL (8.4-10.2); Carbon Dioxide 21 mmol/L (22-29); Chloride 109 mmol/L (96-108); Creatinine Clr Calc Pharmacy 11.3; Estimated Glomerular Filt Rate 9; Glucose Random 148 mg/dL (60-115); Potassium 3.6 mmol/L (3.3-5.1); Sodium 143 mmol/L (135-145)
[2023-06-22 07:57] LABS: Glucose, Whole Blood 134 mg/dL (60-115)
[2023-06-22] MEDS: Gabapentin 100 MG CAPSULE PO (09:04)
[2023-06-22] MEDS: rifAXIMin 550 MG TABLET PO ×2 (09:04→20:52)
[2023-06-22] MEDS: Folic Acid 1 MG TABLET PO (09:04)
[2023-06-22] MEDS: Multivitamin TABLET 1 TAB PO (09:04)
[2023-06-22] MEDS: Naltrexone HCl 50 MG TABLET PO (09:05)
[2023-06-22] MEDS: Midodrine HCl 10 MG TABLET PO ×3 (09:05→16:57)
[2023-06-22] MEDS: Sertraline HCL 100 MG TABLET PO (09:05)
[2023-06-22] MEDS: Nystatin Powder 15 GM BOTTLE 1 APPL TOPICAL (09:05)
[2023-06-22] MEDS: 0.9 % Sodium Chloride Flush 3 ML SYRINGE IVFLUSH ×3 (09:05→20:53)
[2023-06-22] MEDS: Thiamine HCL 100 MG TABLET PO (09:15)
[2023-06-22 11:49] LABS: Glucose, Whole Blood 143 mg/dL (60-115)
--- NOTE | 2023-06-22 13:00 | P.PNIM_ITS ---
Subjective Subjective Date of Service: 06/23/23 Interval History: Offers no acute complaints denies nausea, no vomiting, no abdominal pain, no fevers, no chills, no confusion, no headache or dizziness, no tremors. Is concerned about rising creatinine and wishes to know treatment options. Review of Systems All other system reviewed and negative Physical Exam 2 Vital Signs: Vital Signs: Last Vital Signs Temp 97.5 F 06/22/23 11:35 Pulse 62 06/22/23 11:35 Resp 18 06/22/23 11:35 BP 99/42 L 06/22/23 11:35 Pulse Ox 99 06/22/23 11:35 O2 Del Method Room Air 06/22/23 11:35 O2 Flow Rate 2 06/21/23 07:39 Oxygen Flow Rate 2 06/15/23 18:39 BMI result Body Mass Index 27.8 Const: Other: General awake alert x3, in no acute distress. Neck supple no JVD. CVS regular rate rhythm, Respiratory lungs clear to auscultation, no respiratory distress, no wheeze, no rhonchi. Gastrointestinal abdomen distended, soft, non tender, bowel sounds audible, no guarding , no rigidity. Extremities no edema. Neuro non focal ,no asterixis Skin no rash Psych appropriate affect Objective Data Active Medications Bisacodyl (Bisacodyl 10 Mg Supp.Rect) 10 mg [place] DAILY PRN PRN Reason: Constipation Folic Acid (Folic Acid 1 Mg Tablet) 1 mg PO DAILY [facility] Last Admin: 06/22/23 09:04 Dose: 1 mg Documented By: HEATH Gabapentin (Gabapentin 100 Mg Capsule) 100 mg PO TID [facility] Last Admin: 06/22/23 09:04 Dose: 100 mg Documented By: HEATH Glucose (Glucose Gel 15 Gm Gel..Gram.) 15 gm PO Q15M PRN; Protocol PRN Reason: per Hypoglycemia Standing Ord. Dextrose (D10) 250 mls @ 750 mls/hr IV Q15M PRN; Protocol PRN Reason: per Hypoglycemia Standing Ord. Albumin Human (Kedbumin 25 %) 100 mls @ 100 mls/hr IV Q6H [facility] Stop: 06/24/23 04:29 Last Infusion: 06/22/23 10:30 Dose: Infused Documented By: HEATH Insulin Human Lispro (Insulin Lispro 100 Unit/Ml 3 Ml Vial) 0 unit SUBCUT QIDACHS [facility]; Protocol Last Admin: 06/22/23 11:49 Dose: Not Given Documented By: HEATH Non-Admin Reason: No Insulin Coverage Lactulose (Lactulose 20 Gm/30 Ml Solution) 30 gm PO TID [facility] Last Admin: 06/22/23 09:05 Dose: Not Given Documented By: HEATH Non-Admin Reason: Patient Refused Melatonin (Melatonin 3 Mg Tablet) 6 mg PO BEDTIME PRN PRN Reason: Insomnia Last Admin: 06/20/23 21:05 Dose: 6 mg Documented By: MAYCO Midodrine (Midodrine Hcl 10 Mg Tablet) 10 mg PO TID@0900,1300,1700 [facility] Last Admin: 06/22/23 09:05 Dose: 10 mg Documented By: HEATH Multivitamins/Vitamin C (Multivitamin Tablet) 1 tab PO DAILY [facility] Last Admin: 06/22/23 09:04 Dose: 1 tab Documented By: HEATH Naltrexone HCl (Naltrexone Hcl 50 Mg Tablet) 50 mg PO DAILY [facility] Last Admin: 06/22/23 09:05 Dose: 50 mg Documented By: HEATH Nystatin (Nystatin Powder 15 Gm Bottle) 1 appl TOPICAL DAILY [facility]; Protocol Last Admin: 06/22/23 09:05 Dose: 1 appl Documented By: HEATH Omeprazole (Omeprazole 40 Mg Capsule.Dr) 40 mg PO DAILY@0630 [facility] Last Admin: 06/22/23 04:48 Dose: 40 mg Documented By: ILYA Ondansetron HCl (Ondansetron Hcl 4 Mg/2 Ml Vial) 4 mg IVPUSH Q8H PRN PRN Reason: Nausea and Vomiting Last Admin: 06/17/23 09:31 Dose: 4 mg Documented By: RIOELEANOR Rifaximin (Rifaximin 550 Mg Tablet) 550 mg PO BID [facility] Last Admin: 06/22/23 09:04 Dose: 550 mg Documented By: HEATH Sertraline HCl (Sertraline Hcl 100 Mg Tablet) 100 mg PO DAILY [facility] Last Admin: 06/22/23 09:05 Dose: 100 mg Documented By: HEATH Sodium Biphosphate/Sodium Phosphate (Sodium Phosphate,[place]-Dibasic 133 Ml Enema) 118 ml [place] DAILY PRN PRN Reason: Constipation Sodium Chloride (0.9 % Sodium Chloride Flush 3 Ml Syringe) 3 ml IVFLUSH QSHIFT [facility] Last Admin: 06/22/23 09:05 Dose: 3 ml Documented By: HEATH Thiamine HCl (Thiamine Hcl 100 Mg Tablet) 100 mg PO DAILY [facility] Last Admin: 06/22/23 09:15 Dose: 100 mg Documented By: HEATH Labs 06/21/23 17:54 06/23/23 07:01 Labs: Laboratory Results - last 24 hr 06/20/23 06/21/23 06/21/23 06:23 16:00 16:11 MCV MCH MCHC RDW Plt Count MPV Absolute Nucleated RBC Nucleated RBC % (auto) Anion Gap Estim Creat Clear Calc Estimated GFR POC Glucose 153 H Random Glucose Calcium Stool Occult Blood NEGATIVE Complement C3 28 L Complement C4 7 L 06/21/23 06/21/23 06/22/23 17:54 19:56 07:05 MCV 90.8 MCH 30.5 MCHC 33.6 RDW 17.8 H Plt Count 189 D MPV 9.8 Absolute Nucleated RBC 0.000 Nucleated RBC % (auto) 0.0 Anion Gap 19 17 Estim Creat Clear Calc 12.4 11.3 Estimated GFR 10 9 POC Glucose 144 H Random Glucose 160 H 148 H Calcium 9.4 9.3 Stool Occult Blood Complement C3 Complement C4 06/22/23 06/22/23 07:47 11:45 MCV MCH MCHC RDW Plt Count MPV Absolute Nucleated RBC Nucleated RBC % (auto) Anion Gap Estim Creat Clear Calc Estimated GFR POC Glucose 134 H 143 H Random Glucose Calcium Stool Occult Blood Complement C3 Complement C4 Microbiology Microbiology Results: Microbiology 06/17/23 11:30 Gram Stain - Final Paracentesis Fluid Anaerobic Culture - Final NO GROWTH AFTER 5 DAYS Body Fluid Culture - Final No growth after 2 days Assessment and Plan (1) Acute on chronic renal failure: Status: Acute (2) Acute hepatic encephalopathy: Status: Acute Plan 67-year-old gentleman with history of alcoholic cirrhosis, chronic indwelling urine catheter, orthostatic hypotension on midodrine, GERD, diabetes mellitus type 2 on insulin, recently discharged from [facility] on June 09 after management for decompensated hepatic cirrhosis with ascites and acute kidney injury and readmitted a week later with Hepatic encephalopathy (grade II) triggered by acute infection (UTI), renal failure and possible GI bleeding. Confusion resolved. -continue lactulose. repeat ammonia 28 Acute on chronic normocytic Anemia, likely multifactorial ,no acute GI bleed noted, iron studies not consistent with iron deficiency, recent endoscopy [facility] 05/04 showed no portal hypertensive gastropathy or varices . Transfused 2 units of PRBCs with good effect. s/p octreotide,continue PPI , Seen by GI ,no endoscopy recommended at this time. Acute on chronic renal failure DDx: ATN, HRS, Pre renal azotemia, creatinine continued to trend up,s/p IVF, case discussed with Nephrology they recommend IV albumin 25 g q.6 hours x3 days,D2/3 ,follow BMP, no indication for dialysis, avoid nephrotoxins , mild acute hypothermia resolved, no sepsis. Chronic hypotension continue midodrine, added albumin follow BP. Chronic Metabolic acidosis--likely from renal failure, bicarb 21, will resume bicarb replacement . Mild chronic lactic acidosis likely secondary to chronic liver failure. No SIRS criteria. IV fluids given, Blood cultures negative Marked ascites. IR removed 5 L on 06/16, noted abdominal distention patient has no shortness of breath, no abdominal pain, follow clinical course HFrEF/cardiomyopathy (30-35%). No acute decompensation, continue close clinical follow-up,. Catheter-associated urinary tract infection. Yesy glabarta, discuss with ID she does not recommend treatment will DC Diflucan Seizure likely secondary to hepatic encephalopathy. Seizure precautions, no recurrent seizures noted. IV Ativan 1 mg as needed Type 2 diabetes mellitus. on diabetic diet , stable blood sugars, monitor poc qid/ac, continue Insulin sliding scale, will check hemoglobin A1c. Mood disorder. Continue sertraline. DVT prophylaxis: Compression boots, hold heparin given anemia and concern for gib, Code status: Full need for inpaitent;management for acute hepatic encephalopathy, anemia, acute on chronic kidney disease with guarded prognosis, need daily labs and medication adjustment. Quality Stroke Does the patient have a stroke diagnosis?: No VTE Prior VTE?: No VTE Risk Level:: Medical - moderate - high VTE Device Contraindication: N/A - Device Ordered VTE Drug Contraindication: Treatment Not Indicated
[2023-06-22] MEDS: Sodium Bicarbonate 650 MG TABLET PO ×2 (13:29→20:52)
[2023-06-22 16:21] LABS: Glucose, Whole Blood 165 mg/dL (60-115)
[2023-06-22] MEDS: Insulin Lispro 100 UNIT/ML 3 ML VIAL SUBCUT (16:57)
[2023-06-22 19:52] LABS: Glucose, Whole Blood 101 mg/dL (60-115)
[2023-06-23] VITALS (7 sets, daily range): BP systolic 118–132; BP diastolic 54–65; PULSE 61–73; RESP 16–20; TEMP 36.1–37; O2SAT 97–100
[2023-06-23] MEDS: Albumin Human 25 % 100 ML IV ×4 (04:55→22:08)
[2023-06-23] MEDS: Omeprazole 40 MG CAPSULE.DR PO (06:00)
[2023-06-23 07:26] LABS: Glucose, Whole Blood 125 mg/dL (60-115)
[2023-06-23 07:46] LABS: Blood Urea Nitrogen 68 mg/dL (9-16); Calcium 9.9 mg/dL (8.4-10.2); Creatinine Clr Calc Pharmacy 11.6; Estimated Glomerular Filt Rate 9; Glucose Random 139 mg/dL (60-115)
[2023-06-23 07:59] LABS: Anion Gap 23 (12-20); Carbon Dioxide 16 mmol/L (22-29); Chloride 109 mmol/L (96-108); Potassium 4.6 mmol/L (3.3-5.1); Sodium 143 mmol/L (135-145)
[2023-06-23] MEDS: Thiamine HCL 100 MG TABLET PO (10:16)
[2023-06-23] MEDS: rifAXIMin 550 MG TABLET PO ×2 (10:16→22:06)
[2023-06-23] MEDS: Gabapentin 300 MG CAPSULE PO (10:16)
[2023-06-23] MEDS: Midodrine HCl 10 MG TABLET PO ×3 (10:16→16:32)
[2023-06-23] MEDS: Sodium Bicarbonate 650 MG TABLET PO ×2 (10:17→22:06)
[2023-06-23] MEDS: Sertraline HCL 100 MG TABLET PO (10:17)
[2023-06-23] MEDS: Folic Acid 1 MG TABLET PO (10:17)
[2023-06-23] MEDS: Multivitamin TABLET 1 TAB PO (10:17)
[2023-06-23] MEDS: Nystatin Powder 15 GM BOTTLE 1 APPL TOPICAL (10:17)
[2023-06-23] MEDS: Naltrexone HCl 50 MG TABLET PO (10:17)
[2023-06-23] MEDS: 0.9 % Sodium Chloride Flush 3 ML SYRINGE IVFLUSH ×2 (10:18→15:25)
[2023-06-23 11:36] LABS: Glucose, Whole Blood 121 mg/dL (60-115)
--- NOTE | 2023-06-23 12:48 | HO.PM.IMPN ---
Subjective Subjective Date of Service: 06/23/23 Interval History: Being followed for acute on chronic kidney disease, offers no acute complaints, denies lightheadedness, no dizziness, no nausea, no vomiting, no abdominal pain, no shortness of breath, no fevers, no chills. Review of Systems All other system reviewed and negative. Physical Exam Vital Signs: Vital Signs: Last Vital Signs Temp 98.4 F 06/23/23 11:43 Pulse 63 06/23/23 11:43 Resp 16 06/23/23 11:43 BP 132/65 06/23/23 11:43 Pulse Ox 100 06/23/23 11:43 O2 Del Method Room Air 06/23/23 11:43 O2 Flow Rate 2 06/21/23 07:39 Oxygen Flow Rate 2 06/15/23 18:39 BMI result Body Mass Index 27.8 Const: Other: General awake alert x3, in no acute distress. Neck supple no JVD. CVS regular rate rhythm, Respiratory lungs clear to auscultation, no respiratory distress, no wheeze, no rhonchi. Gastrointestinal abdomen distended, soft, non tender, bowel sounds audible, no guarding , no rigidity. Extremities no edema. Neuro non focal ,no asterixis Skin no rash Psych appropriate affect Objective Data Active Medications Bisacodyl (Bisacodyl 10 Mg Supp.Rect) 10 mg MD DAILY PRN PRN Reason: Constipation Folic Acid (Folic Acid 1 Mg Tablet) 1 mg PO DAILY [facility] Last Admin: 06/23/23 10:17 Dose: 1 mg Documented By: HEATH Gabapentin (Gabapentin 300 Mg Capsule) 300 mg PO DAILY [facility] Last Admin: 06/23/23 10:16 Dose: 300 mg Documented By: HEATH Glucose (Glucose Gel 15 Gm Gel..Gram.) 15 gm PO Q15M PRN; Protocol PRN Reason: per Hypoglycemia Standing Ord. Dextrose (D10) 250 mls @ 750 mls/hr IV Q15M PRN; Protocol PRN Reason: per Hypoglycemia Standing Ord. Albumin Human (Kedbumin 25 %) 100 mls @ 100 mls/hr IV Q6H [facility] Stop: 06/24/23 04:29 Last Infusion: 06/23/23 11:35 Dose: Infused Documented By: HEATH Insulin Human Lispro (Insulin Lispro 100 Unit/Ml 3 Ml Vial) 0 unit SUBCUT QIDACHS [facility]; Protocol Last Admin: 06/23/23 11:46 Dose: Not Given Documented By: HEATH Non-Admin Reason: No Insulin Coverage Lactulose (Lactulose 20 Gm/30 Ml Solution) 30 gm PO TID [facility] Last Admin: 06/23/23 10:18 Dose: Not Given Documented By: HEATH Non-Admin Reason: Patient Refused Melatonin (Melatonin 3 Mg Tablet) 6 mg PO BEDTIME PRN PRN Reason: Insomnia Last Admin: 06/20/23 21:05 Dose: 6 mg Documented By: MAYCO Midodrine (Midodrine Hcl 10 Mg Tablet) 10 mg PO TID@0900,1300,1700 [facility] Last Admin: 06/23/23 10:16 Dose: 10 mg Documented By: HEATH Multivitamins/Vitamin C (Multivitamin Tablet) 1 tab PO DAILY [facility] Last Admin: 06/23/23 10:17 Dose: 1 tab Documented By: HEATH Naltrexone HCl (Naltrexone Hcl 50 Mg Tablet) 50 mg PO DAILY [facility] Last Admin: 06/23/23 10:17 Dose: 50 mg Documented By: HEATH Nystatin (Nystatin Powder 15 Gm Bottle) 1 appl TOPICAL DAILY [facility]; Protocol Last Admin: 06/23/23 10:17 Dose: 1 appl Documented By: HEATH Omeprazole (Omeprazole 40 Mg Capsule.Dr) 40 mg PO DAILY@0630 [facility] Last Admin: 06/23/23 06:00 Dose: 40 mg Documented By: ILYA Ondansetron HCl (Ondansetron Hcl 4 Mg/2 Ml Vial) 4 mg IVPUSH Q8H PRN PRN Reason: Nausea and Vomiting Last Admin: 06/17/23 09:31 Dose: 4 mg Documented By: NORI Rifaximin (Rifaximin 550 Mg Tablet) 550 mg PO BID [facility] Last Admin: 06/23/23 10:16 Dose: 550 mg Documented By: HEATH Sertraline HCl (Sertraline Hcl 100 Mg Tablet) 100 mg PO DAILY [facility] Last Admin: 06/23/23 10:17 Dose: 100 mg Documented By: HEATH Sodium Bicarbonate (Sodium Bicarbonate 650 Mg Tablet) 650 mg PO BID [facility] Last Admin: 06/23/23 10:17 Dose: 650 mg Documented By: HEATH Sodium Biphosphate/Sodium Phosphate (Sodium Phosphate,[place]-Dibasic 133 Ml Enema) 118 ml MD DAILY PRN PRN Reason: Constipation Sodium Chloride (0.9 % Sodium Chloride Flush 3 Ml Syringe) 3 ml IVFLUSH QSHIFT [facility] Last Admin: 06/23/23 10:18 Dose: 3 ml Documented By: HEATH Thiamine HCl (Thiamine Hcl 100 Mg Tablet) 100 mg PO DAILY [facility] Last Admin: 06/23/23 10:16 Dose: 100 mg Documented By: HEATH Labs 06/21/23 17:54 06/23/23 07:01 Labs: Laboratory Results - last 24 hr 06/22/23 06/22/23 06/23/23 16:17 19:48 07:01 Hold Purple Top SEE NOTE Anion Gap 23 H Estim Creat Clear Calc 11.6 Estimated GFR 9 POC Glucose 165 H 101 Random Glucose 139 H Calcium 9.9 D 06/23/23 06/23/23 07:14 11:11 Hold Purple Top Anion Gap Estim Creat Clear Calc Estimated GFR POC Glucose 125 H 121 H Random Glucose Calcium Microbiology Microbiology Results: Microbiology 06/17/23 11:30 Gram Stain - Final Paracentesis Fluid Anaerobic Culture - Final NO GROWTH AFTER 5 DAYS Body Fluid Culture - Final No growth after 2 days Assessment and Plan (1) Acute on chronic renal failure: Status: Acute (2) Acute hepatic encephalopathy: Status: Acute Plan 67-year-old gentleman with history of alcoholic cirrhosis, chronic indwelling urine catheter, orthostatic hypotension on midodrine, GERD, diabetes mellitus type 2 on insulin, recently discharged from [facility] on June 09 after management for decompensated hepatic cirrhosis with ascites and acute kidney injury and readmitted a week later with Acute on chronic renal failure DDx: ATN, HRS, Pre renal azotemia, creatinine remains elevated but stabilized,s/p IVF, cont. IV albumin 25 g q.6 hours x3 days,D3/3 ,follow BMP, no indication for dialysis, avoid nephrotoxins , mild acute hypothermia resolved, no sepsis. Being followed by Nephrology Hepatic encephalopathy (grade II) triggered by acute infection (UTI), renal failure and possible GI bleeding. Confusion resolved. continue lactulose. repeat ammonia 28 Acute on chronic normocytic Anemia, likely multifactorial ,no acute GI bleed noted, iron studies not consistent with iron deficiency, recent endoscopy [facility] 05/04 showed no portal hypertensive gastropathy or varices . Transfused 2 units of PRBCs with good effect. s/p octreotide,continue PPI , Seen by GI ,no endoscopy recommended at this time. Chronic hypotension stable BP, continue midodrine, added albumin, follow BP. Chronic Metabolic acidosis--likely from renal failure, bicarb 21, on bicarb replacement . Mild chronic lactic acidosis likely secondary to chronic liver failure. No SIRS criteria. IV fluids given, Blood cultures negative Marked ascites. IR removed 5 L on 06/16, noted abdominal distention patient has no shortness of breath, no abdominal pain, follow clinical course HFrEF/cardiomyopathy (30-35%). No acute decompensation, continue close clinical follow-up,. Catheter-associated urinary tract infection. Yesy glabarta, discuss with ID she does not recommend treatment will DC Diflucan Seizure likely secondary to hepatic encephalopathy. Seizure precautions, no recurrent seizures noted. IV Ativan 1 mg as needed Type 2 diabetes mellitus. on diabetic diet , stable blood sugars, monitor poc qid/ac, continue Insulin sliding scale, will check hemoglobin A1c. Not on oral hypoglycemics or scheduled insulin at home. Mood disorder. Continue sertraline. DVT prophylaxis: Compression boots, hold heparin given anemia and concern for gib, Code status: Full need for inpaitent;management for acute hepatic encephalopathy, anemia, acute on chronic kidney disease with guarded prognosis, need daily labs and medication adjustment. Called and updated her about patient's clinical condition and further treatment plan. Quality Stroke Does the patient have a stroke diagnosis?: No VTE Prior VTE?: No VTE Risk Level:: Medical - moderate - high VTE Device Contraindication: N/A - Device Ordered VTE Drug Contraindication: Treatment Not Indicated
[2023-06-23] MEDS: Lactulose 20 GM/30 ML SOLUTION 30 GM PO (15:20)
[2023-06-23 15:53] LABS: Glucose, Whole Blood 159 mg/dL (60-115)
[2023-06-23] MEDS: Insulin Lispro 100 UNIT/ML 3 ML VIAL SUBCUT (16:32)
[2023-06-23 20:56] LABS: Glucose, Whole Blood 144 mg/dL (60-115)
[2023-06-24 04:00] VITALS: BP 118/58; PULSE 69; RESP 20; TEMP 36.3; O2SAT 98
[2023-06-24] MEDS: Albumin Human 25 % 100 ML IV (04:04)
[2023-06-24] MEDS: Omeprazole 40 MG CAPSULE.DR PO (05:46)
[2023-06-24 07:22] LABS: Glucose, Whole Blood 136 mg/dL (60-115)
[2023-06-24 07:41] VITALS: BP 123/61; PULSE 83; RESP 18; TEMP 36.8; O2SAT 100
[2023-06-24 10:16] LABS: Anion Gap 21 (12-20); Blood Urea Nitrogen 70 mg/dL (9-16); Calcium 10.2 mg/dL (8.4-10.2); Carbon Dioxide 18 mmol/L (22-29); Chloride 107 mmol/L (96-108); Creatinine Clr Calc Pharmacy 10.3; Estimated Glomerular Filt Rate 8; Glucose Random 148 mg/dL (60-115); Potassium 4.2 mmol/L (3.3-5.1); Sodium 142 mmol/L (135-145)
[2023-06-24 10:23] LABS: Estimated Average Glucose 105 mg/dL; Hemoglobin A1C 85.7753 umol/L; Hemoglobin A1c % 5.3 % (<6.0)
[2023-06-24] MEDS: Sertraline HCL 100 MG TABLET PO (10:50)
[2023-06-24] MEDS: Multivitamin TABLET 1 TAB PO (10:50)
[2023-06-24] MEDS: 0.9 % Sodium Chloride Flush 3 ML SYRINGE IVFLUSH ×3 (10:50→22:03)
[2023-06-24] MEDS: Naltrexone HCl 50 MG TABLET PO (10:50)
[2023-06-24] MEDS: Sodium Bicarbonate 650 MG TABLET PO ×2 (10:50→22:03)
[2023-06-24] MEDS: Gabapentin 300 MG CAPSULE PO (10:50)
[2023-06-24] MEDS: Midodrine HCl 10 MG TABLET PO ×2 (10:50→18:12)
[2023-06-24] MEDS: rifAXIMin 550 MG TABLET PO ×2 (10:50→22:03)
[2023-06-24] MEDS: Folic Acid 1 MG TABLET PO (10:50)
[2023-06-24] MEDS: Thiamine HCL 100 MG TABLET PO (10:50)
[2023-06-24] MEDS: Lactulose 20 GM/30 ML SOLUTION 30 GM PO ×2 (10:54→18:10)
[2023-06-24 10:56] VITALS: BP 133/62; PULSE 75; RESP 18; TEMP 36.7; O2SAT 97
[2023-06-24] MEDS: Nystatin Powder 15 GM BOTTLE 1 APPL TOPICAL (11:00)
[2023-06-24 11:10] LABS: Glucose, Whole Blood 138 mg/dL (60-115)
[2023-06-24 12:05] VITALS: PULSE 86; O2SAT 99
--- NOTE | 2023-06-24 12:16 | P.PNIM_ITS ---
Subjective Subjective Date of Service: 06/25/23 Interval History: Being followed for acute on chronic kidney disease. Patient offers no complaints denies shortness of breath, no chest pain, no abdominal discomfort, tolerating diet, no lightheadedness, no dizziness. Review of Systems All other system reviewed and negative. Physical Exam 2 Vital Signs: Vital Signs: Last Vital Signs Temp 98.0 F 06/24/23 10:56 Pulse 75 06/24/23 10:56 Resp 18 06/24/23 10:56 BP 133/62 06/24/23 10:56 Pulse Ox 97 06/24/23 10:56 O2 Del Method Room Air 06/24/23 10:56 O2 Flow Rate 2 06/21/23 07:39 Oxygen Flow Rate 2 06/15/23 18:39 BMI result Body Mass Index 27.8 Const: Other: General awake alert x3, in no acute distress. Neck supple no JVD. CVS regular rate rhythm, Respiratory lungs clear to auscultation, no respiratory distress, no wheeze, no rhonchi. Gastrointestinal worsening abdomen distention, non tender, bowel sounds audible, no guarding , no rigidity. Extremities no edema. Neuro non focal ,no asterixis, no confusion Skin no rash Psych appropriate affect Objective Data Active Medications Bisacodyl (Bisacodyl 10 Mg Supp.Rect) 10 mg [place] DAILY PRN PRN Reason: Constipation Folic Acid (Folic Acid 1 Mg Tablet) 1 mg PO DAILY [facility] Last Admin: 06/24/23 10:50 Dose: 1 mg Documented By: MELECIO Gabapentin (Gabapentin 100 Mg Capsule) 200 mg PO DAILY [facility] Glucose (Glucose Gel 15 Gm Gel..Gram.) 15 gm PO Q15M PRN; Protocol PRN Reason: per Hypoglycemia Standing Ord. Dextrose (D10) 250 mls @ 750 mls/hr IV Q15M PRN; Protocol PRN Reason: per Hypoglycemia Standing Ord. Insulin Human Lispro (Insulin Lispro 100 Unit/Ml 3 Ml Vial) 0 unit SUBCUT QIDACHS [facility]; Protocol Last Admin: 06/24/23 10:52 Dose: Not Given Documented By: MELECIO Non-Admin Reason: No Insulin Coverage Lactulose (Lactulose 20 Gm/30 Ml Solution) 30 gm PO TID [facility] Last Admin: 06/24/23 10:54 Dose: 10 gm Documented By: MELECIO Comments: pt refused 2/3 of dose Melatonin (Melatonin 3 Mg Tablet) 6 mg PO BEDTIME PRN PRN Reason: Insomnia Last Admin: 06/20/23 21:05 Dose: 6 mg Documented By: MAYCO Midodrine (Midodrine Hcl 10 Mg Tablet) 10 mg PO TID@0900,1300,1700 [facility] Last Admin: 06/24/23 10:50 Dose: 10 mg Documented By: MELECIO Multivitamins/Vitamin C (Multivitamin Tablet) 1 tab PO DAILY [facility] Last Admin: 06/24/23 10:50 Dose: 1 tab Documented By: MELECIO Naltrexone HCl (Naltrexone Hcl 50 Mg Tablet) 50 mg PO DAILY [facility] Last Admin: 06/24/23 10:50 Dose: 50 mg Documented By: MELECIO Nystatin (Nystatin Powder 15 Gm Bottle) 1 appl TOPICAL DAILY [facility]; Protocol Last Admin: 06/24/23 11:00 Dose: 1 appl Documented By: MELECIO Omeprazole (Omeprazole 40 Mg Capsule.Dr) 40 mg PO DAILY@0630 [facility] Last Admin: 06/24/23 05:46 Dose: 40 mg Documented By: HIPOLITO Ondansetron HCl (Ondansetron Hcl 4 Mg/2 Ml Vial) 4 mg IVPUSH Q8H PRN PRN Reason: Nausea and Vomiting Last Admin: 06/17/23 09:31 Dose: 4 mg Documented By: NORI Rifaximin (Rifaximin 550 Mg Tablet) 550 mg PO BID [facility] Last Admin: 06/24/23 10:50 Dose: 550 mg Documented By: MELECIO Sertraline HCl (Sertraline Hcl 100 Mg Tablet) 100 mg PO DAILY [facility] Last Admin: 06/24/23 10:50 Dose: 100 mg Documented By: MELECIO Sodium Bicarbonate (Sodium Bicarbonate 650 Mg Tablet) 650 mg PO BID [facility] Last Admin: 06/24/23 10:50 Dose: 650 mg Documented By: MELECIO Sodium Biphosphate/Sodium Phosphate (Sodium Phosphate,[place]-Dibasic 133 Ml Enema) 118 ml [place] DAILY PRN PRN Reason: Constipation Sodium Chloride (0.9 % Sodium Chloride Flush 3 Ml Syringe) 3 ml IVFLUSH QSHIFT [facility] Last Admin: 06/24/23 10:50 Dose: 3 ml Documented By: MELECIO Thiamine HCl (Thiamine Hcl 100 Mg Tablet) 100 mg PO DAILY [facility] Last Admin: 06/24/23 10:50 Dose: 100 mg Documented By: MELECIO Labs 06/25/23 10:47 06/25/23 10:47 Labs: Laboratory Results - last 24 hr 06/23/23 06/23/23 06/24/23 15:44 20:43 07:12 Anion Gap Estim Creat Clear Calc Estimated GFR POC Glucose 159 H 144 H 136 H Random Glucose Estimat Average Glucose Hemoglobin A1c % Calcium 06/24/23 06/24/23 09:48 11:02 Anion Gap 21 H Estim Creat Clear Calc 10.3 Estimated GFR 8 POC Glucose 138 H Random Glucose 148 H Estimat Average Glucose 105 Hemoglobin A1c % 5.3 Calcium 10.2 Assessment and Plan (1) Acute on chronic renal failure: Status: Acute (2) Acute hepatic encephalopathy: Status: Acute Plan 67-year-old gentleman with history of alcoholic cirrhosis, chronic indwelling urine catheter, orthostatic hypotension on midodrine, GERD, diabetes mellitus type 2 on insulin, recently discharged from [facility] on June 09 after management for decompensated hepatic cirrhosis with ascites and acute kidney injury and readmitted a week later with Acute on chronic renal failure DDx: ATN, HRS, Pre renal azotemia, doubt cardiorenal ,creatinine continued to trend up 7.04 today,s/p IVF, s/p IV albumin 25 g q.6 hours x3 days, ended ,follow BMP, avoid nephrotoxins , case discussed with Nephrology possible hemodialysis depending on clinical course and follow-up BMP. Hepatic encephalopathy (grade II) triggered by acute infection (UTI), renal failure and possible GI bleeding. Confusion resolved. continue lactulose. repeat ammonia 28 Acute on chronic normocytic Anemia, likely multifactorial ,no acute GI bleed noted, iron studies not consistent with iron deficiency, recent endoscopy [facility] 05/04 showed no portal hypertensive gastropathy or varices . Transfused 2 units of PRBCs with good effect. s/p octreotide,continue PPI , Seen by GI ,no endoscopy recommended at this time. Chronic hypotension stable BP, continue midodrine, follow BP. Chronic Metabolic acidosis--likely from renal failure, bicarb stable, on bicarb replacement . Mild chronic lactic acidosis likely secondary to chronic liver failure. No SIRS criteria. IV fluids given, Blood cultures negative Marked ascites. IR removed 5 L on 06/16, noted abdominal distention patient has no shortness of breath, no abdominal pain, follow clinical course HFrEF/cardiomyopathy (30-35%). No acute decompensation, continue close clinical follow-up, chest x-ray showed no acute process. Catheter-associated urinary tract infection. Yesy glabarta, discuss with ID she does not recommend treatment will DC Diflucan Seizure likely secondary to hepatic encephalopathy. Seizure precautions, no recurrent seizures noted. IV Ativan 1 mg as needed Type 2 diabetes mellitus. on diabetic diet , stable blood sugars, will DC Insulin sliding scale, hemoglobin A1c 5.3. Not on oral hypoglycemics or scheduled insulin at home. Mood disorder. Continue sertraline. DVT prophylaxis: Compression boots, hold heparin given anemia and concern for gib, Code status: Full need for inpaitent;management for acute hepatic encephalopathy, anemia, acute on chronic kidney disease with guarded prognosis, need daily labs and medication adjustment. Called and updated her about patient's clinical condition and further treatment plan. Quality Stroke Does the patient have a stroke diagnosis?: No VTE Prior VTE?: No VTE Risk Level:: Medical - moderate - high VTE Device Contraindication: N/A - Device Ordered VTE Drug Contraindication: Treatment Not Indicated
--- NOTE | 2023-06-24 12:37 | PM.EVENT ---
Event Note Date of Service: 06/25/23 Event Note: Creatinine continues to increase He would be needing dialysis if no improvement in the next 24-48 hours Watch electrolytes and Urine output Time Spent With Patient Time: Total time managing care of this patient today ____ minutes.
[2023-06-24 15:18] VITALS: BP 153/67; PULSE 70; RESP 18; TEMP 36.6; O2SAT 96
[2023-06-24 15:57] LABS: Glucose, Whole Blood 143 mg/dL (60-115)
[2023-06-24 20:00] VITALS: BP 124/61; PULSE 82; RESP 19; TEMP 36.3; O2SAT 98
[2023-06-24 21:20] LABS: Glucose, Whole Blood 135 mg/dL (60-115)
[2023-06-25] VITALS (7 sets, daily range): BP systolic 111–132; BP diastolic 56–65; PULSE 58–79; RESP 16–22; TEMP 36.3–37; O2SAT 97–100
[2023-06-25] MEDS: Omeprazole 40 MG CAPSULE.DR PO (06:24)
[2023-06-25 07:37] LABS: Glucose, Whole Blood 142 mg/dL (60-115)
--- NOTE | 2023-06-25 09:20 | P.PNNP_ITS ---
Subjective Subjective Date of Service: 06/27/23 Interval history: Events noted No labs today Physical Exam 2 Vital Signs: Vital Signs: Last Vital Signs Temp 97.3 F 06/25/23 07:28 Pulse 79 06/25/23 07:28 Resp 16 06/25/23 07:28 BP 111/56 L 06/25/23 07:28 Pulse Ox 99 06/25/23 07:28 O2 Del Method Room Air 06/25/23 07:28 O2 Flow Rate 2 06/21/23 07:39 Oxygen Flow Rate 2 06/15/23 18:39 BMI result Body Mass Index 27.8 Const: General: comfortable and no acute distress HEENT: Head: Yes normocephalic Mouth: Normal oral and palatal mucosa present Eyes: EOM: EOMs intact bilaterally Neck: Neck: Yes supple Resp: Auscultation: clear to auscultation bilaterally Cardio: Jugular venous distension: no JVD Rate: regular rate GI: Palpation (GI): Soft to palpation Auscultation: normal bowel sounds : General: Yes no CVA tenderness Back/Spine/Pelvis: Back: no CVA tenderness Skin: General skin exam: no rashes or lesions noted Neuro: General: moves all extremities Objective Data Labs 06/25/23 10:47 06/27/23 10:18 Labs: Laboratory Results - last 24 hr 06/24/23 06/24/23 06/24/23 09:48 11:02 15:50 Sodium 142 Potassium 4.2 Chloride 107 Carbon Dioxide 18 L Anion Gap 21 H BUN 70 H Creatinine 7.08 H* Estim Creat Clear Calc 10.3 Estimated GFR 8 POC Glucose 138 H 143 H Random Glucose 148 H Estimat Average Glucose 105 Hemoglobin A1c % 5.3 Calcium 10.2 06/24/23 06/25/23 21:06 07:32 Sodium Potassium Chloride Carbon Dioxide Anion Gap BUN Creatinine Estim Creat Clear Calc Estimated GFR POC Glucose 135 H 142 H Random Glucose Estimat Average Glucose Hemoglobin A1c % Calcium Microbiology Microbiology Results: Microbiology 06/17/23 11:30 Paracentesis Fluid Gram Stain - Final 06/17/23 11:30 Paracentesis Fluid Anaerobic Culture - Final NO GROWTH AFTER 5 DAYS 06/17/23 11:30 Paracentesis Fluid Body Fluid Culture - Final No growth after 2 days 06/16/23 00:02 Blood - Venous Blood Culture - Final No growth after 5 days. 06/16/23 00:02 Blood - Venous Blood Culture - Final No growth after 5 days. 06/15/23 21:41 Urine Catheterized - Straight Catheter Urine Culture - Final Yesy glabrata Procedures Date of Service Date of Service: 06/27/23 Assessment & Plan Assessment and plan (1) PENNY (acute kidney injury): Status: Inactive (2) Ascites: Status: Inactive (3) Chronic indwelling Gordon catheter: Status: Inactive (4) Acute on chronic anemia: Status: Resolved Plan 67 yr old man with DOUGIE superimpose don CKD 3 DDX for PENNY : Hypoperfusion from volume depletion /low BP Possible tubular injury/ATN r/o AiN and AGN No obstruction r/o Compartment syndrome from tense ascites No improvement in renal funtion C3/C4 are low Suggest Keep SBP > 100 No need for diuretics Avoid nephrotoxins Paracenthesis p.r.n. Watch urine out put Check labs today May need dialysis Discussed with patient and he is agreeable. Based on labs will arrange for dialysis catheter Time Spent With Patient Time: Total time managing care of this patient today ____ minutes. Progress Note: Quality Stroke Does the patient have a stroke diagnosis?: No
[2023-06-25] MEDS: Lactulose 20 GM/30 ML SOLUTION 30 GM PO ×2 (10:22→18:59)
[2023-06-25] MEDS: Thiamine HCL 100 MG TABLET PO (10:23)
[2023-06-25] MEDS: Midodrine HCl 10 MG TABLET PO ×3 (10:23→19:02)
[2023-06-25] MEDS: rifAXIMin 550 MG TABLET PO ×2 (10:23→22:13)
[2023-06-25] MEDS: Sertraline HCL 100 MG TABLET PO (10:23)
[2023-06-25] MEDS: Multivitamin TABLET 1 TAB PO (10:23)
[2023-06-25] MEDS: Naltrexone HCl 50 MG TABLET PO (10:23)
[2023-06-25] MEDS: Gabapentin 100 MG CAPSULE 200 MG PO (10:24)
[2023-06-25] MEDS: Folic Acid 1 MG TABLET PO (10:24)
[2023-06-25] MEDS: 0.9 % Sodium Chloride Flush 3 ML SYRINGE IVFLUSH ×2 (10:32→15:53)
[2023-06-25] MEDS: Nystatin Powder 15 GM BOTTLE 1 APPL TOPICAL (10:58)
--- NOTE | 2023-06-25 11:01 | MHC.CM.PN ---
EMR REVIEWED, PT W/WORSENING KIDNEY FAILURE OON CKD, [facility] LAB[facility] PENDING, NO PLAN FOR DC AT THIS TIME, DCP CONT'S TO BE FOR PT TO RETURN TO [facility] ONCE MEDICALLY CLEARED, CM WILL CONT TO FOLLOW DC NEEDS.
[2023-06-25 11:08] LABS: Hematocrit 29.7 % (42.0-52.0); Hemoglobin 10.1 g/dl (14.0-18.0); Mean Corpuscular Hemoglobin 30.9 pg (27.0-33.0); Mean Corpuscular Volume 90.8 fL (80.0-98.0); Mean Platelet Volume 10.3 fL (9.4-12.4); Platelet Count 188 X10*3/uL (160-400); Red Blood Count 3.27 X10*6/uL (4.60-5.80)
[2023-06-25 11:16] LABS: INTERNATIONAL NORM RATIO 1.2 (0.9-1.1); Prothrombin Time 14.7 SEC (11.1-13.3)
[2023-06-25 11:25] LABS: Anion Gap 23 (12-20); Blood Urea Nitrogen 75 mg/dL (9-16); Calcium 10.4 mg/dL (8.4-10.2); Carbon Dioxide 18 mmol/L (22-29); Chloride 107 mmol/L (96-108); Glucose Random 155 mg/dL (60-115); Sodium 144 mmol/L (135-145)
[2023-06-25 11:28] LABS: Creatinine Clr Calc Pharmacy 9.5; Estimated Glomerular Filt Rate 7
[2023-06-25 11:30] LABS: Glucose, Whole Blood 130 mg/dL (60-115)
--- NOTE | 2023-06-25 15:35 | HO.PM.IMPN ---
Subjective Subjective Date of Service: 06/26/23 Interval History: Being followed for worsening renal function. Patient resting comfortably offers no acute complaints denies headache, no dizziness, no lightheadedness, no chest pain, no palpitation, no nausea, no vomiting, no abdominal pain no diarrhea, no confusion answering questions appropriately. Review of Systems All other system reviewed and negative. Physical Exam Vital Signs: Vital Signs: Last Vital Signs Temp 98.0 F 06/25/23 15:27 Pulse 71 06/25/23 15:27 Resp 20 06/25/23 15:27 BP 121/64 06/25/23 15:27 Pulse Ox 100 06/25/23 15:27 O2 Del Method Room Air 06/25/23 15:27 O2 Flow Rate 2 06/21/23 07:39 Oxygen Flow Rate 2 06/15/23 18:39 BMI result Body Mass Index 27.8 Const: Other: General awake alert x3, in no acute distress. Neck supple no JVD. CVS regular rate rhythm, Respiratory lungs clear to auscultation, no respiratory distress, no wheeze, no rhonchi. Gastrointestinal worsening abdomen distention, non tender, bowel sounds audible, no guarding , no rigidity. Extremities no edema. Neuro non focal ,no asterixis, no confusion Skin no rash Psych appropriate affect Objective Data Active Medications Bisacodyl (Bisacodyl 10 Mg Supp.Rect) 10 mg IN DAILY PRN PRN Reason: Constipation Folic Acid (Folic Acid 1 Mg Tablet) 1 mg PO DAILY [facility] Last Admin: 06/25/23 10:24 Dose: 1 mg Documented By: MELECIO Gabapentin (Gabapentin 100 Mg Capsule) 200 mg PO DAILY [facility] Last Admin: 06/25/23 10:24 Dose: 200 mg Documented By: MELECIO Glucose (Glucose Gel 15 Gm Gel..Gram.) 15 gm PO Q15M PRN; Protocol PRN Reason: per Hypoglycemia Standing Ord. Dextrose (D10) 250 mls @ 750 mls/hr IV Q15M PRN; Protocol PRN Reason: per Hypoglycemia Standing Ord. Insulin Human Lispro (Insulin Lispro 100 Unit/Ml 3 Ml Vial) 0 unit SUBCUT QIDACHS [facility]; Protocol Last Admin: 06/25/23 12:45 Dose: Not Given Documented By: MELECIO Non-Admin Reason: No Insulin Coverage Lactulose (Lactulose 20 Gm/30 Ml Solution) 30 gm PO TID [facility] Last Admin: 06/25/23 10:22 Dose: 20 gm Documented By: MELECIO Melatonin (Melatonin 3 Mg Tablet) 6 mg PO BEDTIME PRN PRN Reason: Insomnia Last Admin: 06/20/23 21:05 Dose: 6 mg Documented By: MAYCO Midodrine (Midodrine Hcl 10 Mg Tablet) 10 mg PO TID@0900,1300,1700 [facility] Last Admin: 06/25/23 10:23 Dose: 10 mg Documented By: MELECIO Multivitamins/Vitamin C (Multivitamin Tablet) 1 tab PO DAILY [facility] Last Admin: 06/25/23 10:23 Dose: 1 tab Documented By: MELECIO Naltrexone HCl (Naltrexone Hcl 50 Mg Tablet) 50 mg PO DAILY [facility] Last Admin: 06/25/23 10:23 Dose: 50 mg Documented By: MELECIO Nystatin (Nystatin Powder 15 Gm Bottle) 1 appl TOPICAL DAILY [facility]; Protocol Last Admin: 06/25/23 10:58 Dose: 1 appl Documented By: MELECIO Omeprazole (Omeprazole 40 Mg Capsule.Dr) 40 mg PO DAILY@0630 [facility] Last Admin: 06/25/23 06:24 Dose: 40 mg Documented By: ALBIN Ondansetron HCl (Ondansetron Hcl 4 Mg/2 Ml Vial) 4 mg IVPUSH Q8H PRN PRN Reason: Nausea and Vomiting Last Admin: 06/17/23 09:31 Dose: 4 mg Documented By: NORI Rifaximin (Rifaximin 550 Mg Tablet) 550 mg PO BID [facility] Last Admin: 06/25/23 10:23 Dose: 550 mg Documented By: MELECIO Sertraline HCl (Sertraline Hcl 100 Mg Tablet) 100 mg PO DAILY [facility] Last Admin: 06/25/23 10:23 Dose: 100 mg Documented By: MELECIO Sodium Bicarbonate (Sodium Bicarbonate 650 Mg Tablet) 650 mg PO TID [facility] Sodium Biphosphate/Sodium Phosphate (Sodium Phosphate,[place]-Dibasic 133 Ml Enema) 118 ml IN DAILY PRN PRN Reason: Constipation Sodium Chloride (0.9 % Sodium Chloride Flush 3 Ml Syringe) 3 ml IVFLUSH QSHIFT [facility] Last Admin: 06/25/23 10:32 Dose: 3 ml Documented By: MELECIO Thiamine HCl (Thiamine Hcl 100 Mg Tablet) 100 mg PO DAILY [facility] Last Admin: 06/25/23 10:23 Dose: 100 mg Documented By: MELECIO Labs 06/25/23 10:47 06/25/23 10:47 Labs: Laboratory Results - last 24 hr 06/24/23 06/24/23 06/25/23 15:50 21:06 07:32 MCV MCH MCHC RDW Plt Count MPV Absolute Nucleated RBC Nucleated RBC % (auto) PT INR Anion Gap Estim Creat Clear Calc Estimated GFR POC Glucose 143 H 135 H 142 H Random Glucose Calcium 06/25/23 06/25/23 10:47 11:10 MCV 90.8 MCH 30.9 MCHC 34.0 RDW 18.0 H Plt Count 188 MPV 10.3 Absolute Nucleated RBC 0.000 Nucleated RBC % (auto) 0.0 PT 14.7 H INR 1.2 H Anion Gap 23 H Estim Creat Clear Calc 9.5 Estimated GFR 7 POC Glucose 130 H Random Glucose 155 H Calcium 10.4 H Assessment and Plan (1) Acute on chronic renal failure: Status: Acute (2) Acute hepatic encephalopathy: Status: Acute Plan 67-year-old gentleman with history of alcoholic cirrhosis, chronic indwelling urine catheter, orthostatic hypotension on midodrine, GERD, diabetes mellitus type 2 on insulin, recently discharged from [facility] on June 09 after management for decompensated hepatic cirrhosis with ascites and acute kidney injury and readmitted a week later with Acute on chronic renal failure DDx: ATN, HRS, Pre renal azotemia, doubt cardiorenal ,creatinine continued to trend up 7.7 today,s/p IVF, s/p IV albumin 25 g q.6 hours x3 days, ended ,follow BMP, avoid nephrotoxins , case discussed with Nephrology possible hemodialysis depending on clinical course and follow-up BMP. Inform patient about hemodialysis planning/patient has healthcare proxy will inform her about plan of hemodialysis catheter placement in and hemodialysis possibly tomorrow/ Hepatic encephalopathy (grade II) triggered by acute infection (UTI), renal failure and possible GI bleeding. Confusion resolved. continue lactulose. repeat ammonia 28 Acute on chronic normocytic Anemia, likely multifactorial ,no acute GI bleed noted, iron studies not consistent with iron deficiency, recent endoscopy [facility] 05/04 showed no portal hypertensive gastropathy or varices . Transfused 2 units of PRBCs with good effect. s/p octreotide,continue PPI , Seen by GI ,no endoscopy recommended at this time. Chronic hypotension stable BP, continue midodrine, follow BP. Chronic Metabolic acidosis--likely from renal failure, bicarb stable, on bicarb replacement . Mild chronic lactic acidosis likely secondary to chronic liver failure. No SIRS criteria. IV fluids given, Blood cultures negative Marked ascites. IR removed 5 L on 06/16, noted abdominal distention patient has no shortness of breath, no abdominal pain, follow clinical course HFrEF/cardiomyopathy (30-35%). No acute decompensation, continue close clinical follow-up, chest x-ray showed no acute process. Catheter-associated urinary tract infection. Yesy glabarta, discuss with ID she does not recommend treatment will DC Diflucan Seizure likely secondary to hepatic encephalopathy. Seizure precautions, no recurrent seizures noted. IV Ativan 1 mg as needed Type 2 diabetes mellitus. on diabetic diet , stable blood sugars, not on Insulin sliding scale, hemoglobin A1c 5.3. Not on oral hypoglycemics or scheduled insulin at home. Mood disorder. Continue sertraline. DVT prophylaxis: Compression boots, hold heparin given anemia and concern for gib, Code status: Full need for inpaitent;management for acute hepatic encephalopathy, anemia, acute on chronic kidney disease with guarded prognosis, need daily labs and medication adjustment and possible hemodialysis. Quality Stroke Does the patient have a stroke diagnosis?: No VTE Prior VTE?: No VTE Risk Level:: Medical - moderate - high VTE Device Contraindication: N/A - Device Ordered VTE Drug Contraindication: Treatment Not Indicated
[2023-06-25] MEDS: Sodium Bicarbonate 650 MG TABLET PO ×2 (15:53→22:13)
[2023-06-25 16:15] LABS: Glucose, Whole Blood 161 mg/dL (60-115)
[2023-06-25] MEDS: Insulin Lispro 100 UNIT/ML 3 ML VIAL SUBCUT (19:00)
[2023-06-25 20:54] LABS: Glucose, Whole Blood 94 mg/dL (60-115)
[2023-06-26] VITALS (7 sets, daily range): BP systolic 102–119; BP diastolic 53–78; PULSE 69–90; RESP 16–20; TEMP 36.2–37.1; O2SAT 95–100
[2023-06-26] MEDS: 0.9 % Sodium Chloride Flush 3 ML SYRINGE IVFLUSH ×4 (01:00→22:06)
[2023-06-26] MEDS: Omeprazole 40 MG CAPSULE.DR PO (06:26)
[2023-06-26 07:18] LABS: Glucose, Whole Blood 122 mg/dL (60-115)
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
[2023-06-26] MEDS: Midodrine HCl 10 MG TABLET PO ×2 (09:32→17:05)
[2023-06-26] MEDS: Sodium Bicarbonate 650 MG TABLET PO ×3 (09:32→22:05)
[2023-06-26] MEDS: Gabapentin 100 MG CAPSULE 200 MG PO (09:32)
[2023-06-26] MEDS: Folic Acid 1 MG TABLET PO (09:32)
[2023-06-26] MEDS: Sertraline HCL 100 MG TABLET PO (09:32)
[2023-06-26] MEDS: Thiamine HCL 100 MG TABLET PO (09:32)
[2023-06-26] MEDS: Naltrexone HCl 50 MG TABLET PO (09:32)
[2023-06-26] MEDS: Multivitamin TABLET 1 TAB PO (09:32)
[2023-06-26] MEDS: rifAXIMin 550 MG TABLET PO ×2 (09:32→22:05)
[2023-06-26] MEDS: Heparin Sodium,Porcine 5,000 UNIT/ML VIAL 5000 UNIT INTRACATH (09:54)
--- NOTE | 2023-06-26 10:38 | PM.EVENT ---
Event Note Date of Service: 06/26/23 Event Note: Procedure Note: Right IJ 20 cm dual lumen non tunneled dialysis catheter placed using US and Fluoro. Tip at cavoatrial junction. Ok for use Russ RODRIGUEZ Interventional Radiology Time Spent With Patient Time: Total time managing care of this patient today ____ minutes.
[2023-06-26 11:32] LABS: Glucose, Whole Blood 131 mg/dL (60-115)
--- NOTE | 2023-06-26 12:44 | MHC.CM.PN ---
Addendum entered by Tatiana Noble RN 06/26/23 13:03: CM CONTACTED PT'S HCP MAAME TO UPDATE HER REGARDING [facility] NOT BEING ABLE TO ACCOMMODATE HD AFTER DC, MAAME REPORTS SHE WILL CONTINUE TO PAY FOR PRIVATE PAY BED HOLD IN HOPES THAT PT WILL ONLY NEED HD WHILE INPT AND REQUESTING CALL FROM HOSPITALIST AFTER PT COMES OUT OF DIALYSIS. Original Note: EMR REVIEWED, CM RECEIVED MESSAGE FROM [facility] THAT THEY CANNOT ACCOMMODATE PT IF ON HD, CM HAS SENT BLANKET REFERRAL TO FACILITIES THAT HAVE ONSET HD, TUNNEL CATH FOR HD INSERTED AND PLAN FOR HD TO START TODAY, CM WILL CONT TO FOLLOW DC NEEDS.
--- NOTE | 2023-06-26 15:56 | HO.PM.IMPN ---
Subjective Subjective Date of Service: 06/26/23 Interval History: Patient concerned about dialysis catheter and hemodialysis answered all questions to his satisfaction, patient offers no complaints of nausea vomiting, no abdominal pain, no diarrhea, no lightheadedness, no dizziness, no shortness of breath, no chest pain, no palpitations, no acute issues overnight. Review of Systems All other system reviewed and negative Physical Exam Vital Signs: Vital Signs: Last Vital Signs Temp 98.0 F 06/26/23 15:11 Pulse 84 06/26/23 15:11 Resp 20 06/26/23 15:11 BP 117/58 L 06/26/23 15:11 Pulse Ox 98 06/26/23 15:11 O2 Del Method Room Air 06/26/23 15:11 O2 Flow Rate 2 06/21/23 07:39 Oxygen Flow Rate 2 06/15/23 18:39 BMI result Body Mass Index 27.8 Const: Other: General awake alert x3, in no acute distress. Neck supple no JVD. CVS regular rate rhythm, Respiratory lungs clear to auscultation, no respiratory distress, no wheeze, no rhonchi. Gastrointestinal abdomen distention,+ ascites, non tender, bowel sounds audible, no guarding , no rigidity. Extremities no edema. Neuro non focal ,no asterixis, no confusion Skin no rash Psych appropriate affect Objective Data Active Medications Acetaminophen (Acetaminophen 325 Mg Tablet) 650 mg PO Q6H PRN PRN Reason: Pain, Mild (Pain Scale 1-3) Bisacodyl (Bisacodyl 10 Mg Supp.Rect) 10 mg [place] DAILY PRN PRN Reason: Constipation Folic Acid (Folic Acid 1 Mg Tablet) 1 mg PO DAILY [facility] Last Admin: 06/26/23 09:32 Dose: 1 mg Documented By: RAINA Gabapentin (Gabapentin 100 Mg Capsule) 200 mg PO DAILY [facility] Last Admin: 06/26/23 09:32 Dose: 200 mg Documented By: RAINA Glucose (Glucose Gel 15 Gm Gel..Gram.) 15 gm PO Q15M PRN; Protocol PRN Reason: per Hypoglycemia Standing Ord. Heparin Sodium (Porcine) (Heparin Sodium,Porcine 5,000 Unit/Ml Vial) 5,000 unit INTRACATH ONCE ONE Stop: 06/27/23 06:01 Heparin Sodium (Porcine) (Heparin Sodium,Porcine 5,000 Unit/Ml Vial) 5,000 unit INTRACATH ONCE ONE Stop: 06/28/23 06:01 Dextrose (D10) 250 mls @ 750 mls/hr IV Q15M PRN; Protocol PRN Reason: per Hypoglycemia Standing Ord. Insulin Human Lispro (Insulin Lispro 100 Unit/Ml 3 Ml Vial) 0 unit SUBCUT QIDACHS [facility]; Protocol Last Admin: 06/26/23 11:46 Dose: Not Given Documented By: RAINA Non-Admin Reason: No Insulin Coverage Lactulose (Lactulose 20 Gm/30 Ml Solution) 30 gm PO TID [facility] Last Admin: 06/26/23 14:45 Dose: Not Given Documented By: RAINA Non-Admin Reason: Patient Refused Melatonin (Melatonin 3 Mg Tablet) 6 mg PO BEDTIME PRN PRN Reason: Insomnia Last Admin: 06/20/23 21:05 Dose: 6 mg Documented By: MAYCO Midodrine (Midodrine Hcl 10 Mg Tablet) 10 mg PO TID@0900,1300,1700 [facility] Last Admin: 06/26/23 14:15 Dose: Not Given Documented By: RAINA Non-Admin Reason: Off unit: Dialysis Multivitamins/Vitamin C (Multivitamin Tablet) 1 tab PO DAILY [facility] Last Admin: 06/26/23 09:32 Dose: 1 tab Documented By: RAINA Naltrexone HCl (Naltrexone Hcl 50 Mg Tablet) 50 mg PO DAILY [facility] Last Admin: 06/26/23 09:32 Dose: 50 mg Documented By: RAINA Nystatin (Nystatin Powder 15 Gm Bottle) 1 appl TOPICAL DAILY [facility]; Protocol Last Admin: 06/26/23 09:56 Dose: Not Given Documented By: ARINA Non-Admin Reason: Patient Refused Omeprazole (Omeprazole 40 Mg Teresa.) 40 mg PO DAILY@0630 [facility] Last Admin: 06/26/23 06:26 Dose: 40 mg Documented By: CHANEL Ondansetron HCl (Ondansetron Hcl 4 Mg/2 Ml Vial) 4 mg IVPUSH Q8H PRN PRN Reason: Nausea and Vomiting Last Admin: 06/17/23 09:31 Dose: 4 mg Documented By: NORI Rifaximin (Rifaximin 550 Mg Tablet) 550 mg PO BID [facility] Last Admin: 06/26/23 09:32 Dose: 550 mg Documented By: RAINA Sertraline HCl (Sertraline Hcl 100 Mg Tablet) 100 mg PO DAILY [facility] Last Admin: 06/26/23 09:32 Dose: 100 mg Documented By: RAINA Sodium Bicarbonate (Sodium Bicarbonate 650 Mg Tablet) 650 mg PO TID [facility] Last Admin: 06/26/23 14:40 Dose: 650 mg Documented By: RAINA Sodium Biphosphate/Sodium Phosphate (Sodium Phosphate,[place]-Dibasic 133 Ml Enema) 118 ml [place] DAILY PRN PRN Reason: Constipation Sodium Chloride (0.9 % Sodium Chloride Flush 3 Ml Syringe) 3 ml IVFLUSH QSHIFT [facility] Last Admin: 06/26/23 09:32 Dose: 3 ml Documented By: RAINA Thiamine HCl (Thiamine Hcl 100 Mg Tablet) 100 mg PO DAILY [facility] Last Admin: 06/26/23 09:32 Dose: 100 mg Documented By: RAINA Labs 06/25/23 10:47 06/25/23 10:47 Labs: Laboratory Results - last 24 hr 06/25/23 06/25/23 06/26/23 16:06 20:50 07:05 POC Glucose 161 H 94 122 H 06/26/23 11:25 POC Glucose 131 H Assessment and Plan (1) Acute on chronic renal failure: Status: Acute (2) Acute hepatic encephalopathy: Status: Acute Plan 67-year-old gentleman with history of alcoholic cirrhosis, chronic indwelling urine catheter, orthostatic hypotension on midodrine, GERD, diabetes mellitus type 2 on insulin, recently discharged from [facility] on June 09 after management for decompensated hepatic cirrhosis with ascites and acute kidney injury and readmitted a week later with Acute on chronic renal failure DDx: ATN, HRS, Pre renal azotemia, doubt cardiorenal ,creatinine continued to trend up 7.7 ,s/p IVF, s/p IV albumin 25 g q.6 hours x3 days, ended ,follow BMP, avoid nephrotoxins , patient scheduled to undergo hemodialysis catheter placement by IR today/followed by hemodialysis Called healthcare proxy she agreed for above procedure. As per patient request also spoke with patient's daughter Maria Kline [phone]. All labs to be drawn by hemodialysis nurse due to hard stick. Hepatic encephalopathy (grade II) triggered by acute infection (UTI), renal failure and possible GI bleeding. Confusion resolved. continue lactulose. repeat ammonia 28 Acute on chronic normocytic Anemia, likely multifactorial ,no acute GI bleed noted, iron studies not consistent with iron deficiency, recent endoscopy [facility] 05/04 showed no portal hypertensive gastropathy or varices . Transfused 2 units of PRBCs with good effect. s/p octreotide,continue PPI , Seen by GI ,no endoscopy recommended at this time. Chronic hypotension stable BP, continue midodrine, follow BP. Chronic Metabolic acidosis--likely from renal failure, bicarb stable, on bicarb replacement . Mild chronic lactic acidosis likely secondary to chronic liver failure. No SIRS criteria. IV fluids given, Blood cultures negative Marked ascites. IR removed 5 L on 06/16, noted abdominal distention patient has no shortness of breath, no abdominal pain, follow clinical course HFrEF/cardiomyopathy (30-35%). No acute decompensation, continue close clinical follow-up, chest x-ray showed no acute process. Catheter-associated urinary tract infection. Yesy glabarta, discuss with ID she does not recommend treatment will DC Diflucan Seizure likely secondary to hepatic encephalopathy. Seizure precautions, no recurrent seizures noted. IV Ativan 1 mg as needed Type 2 diabetes mellitus. on diabetic diet , stable blood sugars, not on Insulin sliding scale, hemoglobin A1c 5.3. Not on oral hypoglycemics or scheduled insulin at home. Mood disorder. Continue sertraline. DVT prophylaxis: Compression boots, hold heparin given anemia and concern for gib, Code status: Full need for inpaitent;management for acute on chronic kidney on HD. Quality Stroke Does the patient have a stroke diagnosis?: No VTE Prior VTE?: No VTE Risk Level:: Medical - moderate - high VTE Device Contraindication: N/A - Device Ordered VTE Drug Contraindication: Treatment Not Indicated
[2023-06-26 16:01] LABS: Glucose, Whole Blood 137 mg/dL (60-115)
--- NOTE | 2023-06-26 20:04 | P.PNNP_ITS ---
Subjective Subjective Date of Service: 06/26/23 Interval history: Seen this AM; S/P RIJ temp HD catheter insertion; no acute issues overnight. Physical Exam 2 Vital Signs: Vital Signs: Last Vital Signs Temp 97.2 F 06/26/23 19:43 Pulse 70 06/26/23 19:43 Resp 16 06/26/23 19:43 BP 119/57 L 06/26/23 19:43 Pulse Ox 95 06/26/23 19:43 O2 Del Method Room Air 06/26/23 19:43 O2 Flow Rate 2 06/21/23 07:39 Oxygen Flow Rate 2 06/15/23 18:39 BMI result Body Mass Index 27.8 Const: General: comfortable and no acute distress O rientation/consciousness: patient oriented x3 HEENT: Head: Yes normocephalic Mouth: Normal oral and palatal mucosa present Eyes: EOM: EOMs intact bilaterally Neck: Neck: Yes supple Resp: Auscultation: clear to auscultation bilaterally Cardio: Jugular venous distension: no JVD Rate: regular rate GI: Palpation (GI): Soft to palpation Auscultation: normal bowel sounds : General: Yes no CVA tenderness Back/Spine/Pelvis: Back: no CVA tenderness Skin: General skin exam: no rashes or lesions noted Neuro: General: patient oriented x3 and moves all extremities Objective Data Labs 06/25/23 10:47 06/25/23 10:47 Labs: Laboratory Results - last 24 hr 06/25/23 06/26/23 06/26/23 20:50 07:05 11:25 POC Glucose 94 122 H 131 H 06/26/23 15:56 POC Glucose 137 H Microbiology Microbiology Results: Microbiology 06/17/23 11:30 Paracentesis Fluid Gram Stain - Final 06/17/23 11:30 Paracentesis Fluid Anaerobic Culture - Final NO GROWTH AFTER 5 DAYS 06/17/23 11:30 Paracentesis Fluid Body Fluid Culture - Final No growth after 2 days 06/16/23 00:02 Blood - Venous Blood Culture - Final No growth after 5 days. 06/16/23 00:02 Blood - Venous Blood Culture - Final No growth after 5 days. 06/15/23 21:41 Urine Catheterized - Straight Catheter Urine Culture - Final Yesy glabrata Procedures Date of Service Date of Service: 04/17/24 Assessment & Plan Assessment and plan (1) Acute on chronic renal failure: Status: Acute Plan 67 yr old man with PENNY superimposed on CKD 3 PENNY likely due to hypoperfusion from volume depletion /low BP Possible tubular injury; Serum creatinine worsening;DDx- HRS HAs underlying HRS 2 at baseline; Was given IV Albumin S/P HD catheter today; For HD today/Sat & Saturday Monitor closely for renal recovery; Shall F/U Time Spent With Patient Time: . Progress Note: Quality Stroke Does the patient have a stroke diagnosis?: No
[2023-06-26 20:43] LABS: Glucose, Whole Blood 164 mg/dL (60-115)
[2023-06-26] MEDS: Lactulose 20 GM/30 ML SOLUTION 30 GM PO (22:05)
[2023-06-26] MEDS: Insulin Lispro 100 UNIT/ML 3 ML VIAL SUBCUT (22:06)
[2023-06-27] VITALS: BP 101/59; PULSE 71; RESP 16; TEMP 36; O2SAT 96
[2023-06-27 03:45] VITALS: BP 100/52; PULSE 71; RESP 16; TEMP 36.6; O2SAT 96
[2023-06-27] MEDS: Omeprazole 40 MG CAPSULE.DR PO (06:23)
[2023-06-27 07:37] VITALS: BP 103/51; PULSE 69; RESP 20; TEMP 36.3; O2SAT 99
[2023-06-27 07:55] LABS: Glucose, Whole Blood 122 mg/dL (60-115)
[2023-06-27] MEDS: Midodrine HCl 10 MG TABLET PO ×3 (08:34→16:35)
[2023-06-27] MEDS: 0.9 % Sodium Chloride Flush 3 ML SYRINGE IVFLUSH ×3 (08:45→21:53)
--- NOTE | 2023-06-27 11:11 | P.PNIM_ITS ---
Subjective Subjective Date of Service: 06/27/23 Interval History: Being followed for acute on chronic kidney disease now on hemodialysis. Receiving hemodialysis this morning offers no acute complaints of nausea, no vomiting, no lightheadedness, no dizziness, no abdominal pain, although noted to have abdominal distention, no diarrhea tolerated hemodialysis well yesterday, no fevers, no chills. Review of Systems All other system reviewed and negative Physical Exam 2 Vital Signs: Vital Signs: Last Vital Signs Temp 97.3 F 06/27/23 07:37 Pulse 69 06/27/23 07:37 Resp 20 06/27/23 07:37 BP 103/51 L 06/27/23 07:37 Pulse Ox 99 06/27/23 07:37 O2 Del Method Room Air 06/27/23 07:37 O2 Flow Rate 2 06/21/23 07:39 Oxygen Flow Rate 2 06/15/23 18:39 BMI result Body Mass Index 27.8 Const: Other: General awake alert x3, in no acute distress. Neck supple no JVD. CVS regular rate rhythm, Respiratory lungs clear to auscultation, no respiratory distress, no wheeze, no rhonchi. Gastrointestinal abdomen distention,+ ascites, non tender, bowel sounds audible, no guarding , no rigidity. Extremities no edema. Neuro non focal ,no asterixis, no confusion Skin no rash Psych appropriate affect, no anxiety Objective Data Active Medications Acetaminophen (Acetaminophen 325 Mg Tablet) 650 mg PO Q6H PRN PRN Reason: Pain, Mild (Pain Scale 1-3) Bisacodyl (Bisacodyl 10 Mg Supp.Rect) 10 mg [place] DAILY PRN PRN Reason: Constipation Folic Acid (Folic Acid 1 Mg Tablet) 1 mg PO DAILY [facility] Last Admin: 06/26/23 09:32 Dose: 1 mg Documented By: RAINA Gabapentin (Gabapentin 100 Mg Capsule) 200 mg PO DAILY [facility] Last Admin: 06/26/23 09:32 Dose: 200 mg Documented By: RAINA Glucose (Glucose Gel 15 Gm Gel..Gram.) 15 gm PO Q15M PRN; Protocol PRN Reason: per Hypoglycemia Standing Ord. Heparin Sodium (Porcine) (Heparin Sodium,Porcine 5,000 Unit/Ml Vial) 5,000 unit INTRACATH ONCE ONE Stop: 06/28/23 06:01 Dextrose (D10) 250 mls @ 750 mls/hr IV Q15M PRN; Protocol PRN Reason: per Hypoglycemia Standing Ord. Insulin Human Lispro (Insulin Lispro 100 Unit/Ml 3 Ml Vial) 0 unit SUBCUT QIDACHS [facility]; Protocol Last Admin: 06/27/23 07:59 Dose: Not Given Documented By: HEATH Non-Admin Reason: No Insulin Coverage Lactulose (Lactulose 20 Gm/30 Ml Solution) 30 gm PO TID [facility] Last Admin: 06/27/23 08:38 Dose: Not Given Documented By: HEATH Non-Admin Reason: Patient Refused Melatonin (Melatonin 3 Mg Tablet) 6 mg PO BEDTIME PRN PRN Reason: Insomnia Last Admin: 06/20/23 21:05 Dose: 6 mg Documented By: MAYCO Midodrine (Midodrine Hcl 10 Mg Tablet) 10 mg PO TID@0900,1300,1700 [facility] Last Admin: 06/27/23 08:34 Dose: 10 mg Documented By: HEATH Multivitamins/Vitamin C (Multivitamin Tablet) 1 tab PO DAILY [facility] Last Admin: 06/26/23 09:32 Dose: 1 tab Documented By: RAINA Naltrexone HCl (Naltrexone Hcl 50 Mg Tablet) 50 mg PO DAILY [facility] Last Admin: 06/26/23 09:32 Dose: 50 mg Documented By: RAINA Nystatin (Nystatin Powder 15 Gm Bottle) 1 appl TOPICAL DAILY [facility]; Protocol Last Admin: 06/26/23 09:56 Dose: Not Given Documented By: RAINA Non-Admin Reason: Patient Refused Omeprazole (Omeprazole 40 Mg ) 40 mg PO DAILY@0630 [facility] Last Admin: 06/27/23 06:23 Dose: 40 mg Documented By: SYLVESTER Ondansetron HCl (Ondansetron Hcl 4 Mg/2 Ml Vial) 4 mg IVPUSH Q8H PRN PRN Reason: Nausea and Vomiting Last Admin: 06/17/23 09:31 Dose: 4 mg Documented By: NORI Rifaximin (Rifaximin 550 Mg Tablet) 550 mg PO BID [facility] Last Admin: 06/26/23 22:05 Dose: 550 mg Documented By: SYLVESTER Sertraline HCl (Sertraline Hcl 100 Mg Tablet) 100 mg PO DAILY [facility] Last Admin: 06/26/23 09:32 Dose: 100 mg Documented By: RAINA Sodium Bicarbonate (Sodium Bicarbonate 650 Mg Tablet) 650 mg PO TID [facility] Last Admin: 06/26/23 22:05 Dose: 650 mg Documented By: SYLVESTER Sodium Biphosphate/Sodium Phosphate (Sodium Phosphate,[place]-Dibasic 133 Ml Enema) 118 ml [place] DAILY PRN PRN Reason: Constipation Sodium Chloride (0.9 % Sodium Chloride Flush 3 Ml Syringe) 3 ml IVFLUSH QSHIFT [facility] Last Admin: 06/27/23 08:45 Dose: 3 ml Documented By: HEATH Thiamine HCl (Thiamine Hcl 100 Mg Tablet) 100 mg PO DAILY [facility] Last Admin: 06/26/23 09:32 Dose: 100 mg Documented By: RAINA Labs 06/25/23 10:47 06/25/23 10:47 Labs: Laboratory Results - last 24 hr 06/26/23 06/26/23 06/26/23 11:25 15:56 20:38 POC Glucose 131 H 137 H 164 H 06/27/23 07:43 POC Glucose 122 H Assessment and Plan (1) Acute on chronic renal failure: Status: Acute (2) Acute hepatic encephalopathy: Status: Acute Plan 67-year-old gentleman with history of alcoholic cirrhosis, chronic indwelling urine catheter, orthostatic hypotension on midodrine, GERD, diabetes mellitus type 2 on insulin, recently discharged from [facility] on June 09 after management for decompensated hepatic cirrhosis with ascites and acute kidney injury and readmitted a week later with Acute on chronic renal failure DDx: ATN, HRS, Pre renal azotemia, doubt cardiorenal Due to lack of improvement with IV fluid, IV albumin albumin, and worsening creatinine, temporary right IJ hemodialysis catheter was placed and patient underwent hemodialysis on 06/25 Receiving repeat hemodialysis today /further hemodialysis as per Nephrology Patient healthcare proxy is his , informed her about initiation and continuation of hemodialysis patient's daughter is Maria Kline [phone]. All labs to be drawn by hemodialysis nurse due to hard stick. Hepatic encephalopathy (grade II) triggered by acute infection (UTI), renal failure and possible GI bleeding. Confusion resolved. continue lactulose. repeat ammonia 28 Acute on chronic normocytic Anemia, likely multifactorial ,no acute GI bleed noted, iron studies not consistent with iron deficiency, recent endoscopy [facility] 05/04 showed no portal hypertensive gastropathy or varices . Last hematocrit 29.7 on 06/24 Transfused 2 units of PRBCs with good effect. s/p octreotide,continue PPI , Seen by GI ,no endoscopy recommended at this time. Chronic hypotension stable BP, continue midodrine, follow BP. Chronic Metabolic acidosis--likely from renal failure, bicarb stable, on bicarb replacement . Mild chronic lactic acidosis likely secondary to chronic liver failure. No SIRS criteria. IV fluids given, Blood cultures negative Marked ascites. IR removed 5 L on 06/16, noted abdominal distention patient has no shortness of breath, no abdominal pain, follow clinical course HFrEF/cardiomyopathy (30-35%). No acute decompensation, continue close clinical follow-up, chest x-ray showed no acute process. Catheter-associated urinary tract infection. Yesy glabarta, discuss with ID she does not recommend treatment will DC Diflucan Seizure likely secondary to hepatic encephalopathy. Seizure precautions, no recurrent seizures noted. IV Ativan 1 mg as needed Type 2 diabetes mellitus. on diabetic diet , stable blood sugars, not on Insulin sliding scale, hemoglobin A1c 5.3. Not on oral hypoglycemics or scheduled insulin at home. Mood disorder. Continue sertraline. DVT prophylaxis: Compression boots, hold heparin given anemia and concern for gib, Code status: Full need for inpaitent;management for acute on chronic kidney on HD. Quality Stroke Does the patient have a stroke diagnosis?: No VTE Prior VTE?: No VTE Risk Level:: Medical - moderate - high VTE Device Contraindication: N/A - Device Ordered VTE Drug Contraindication: Treatment Not Indicated
[2023-06-27 11:28] LABS: Anion Gap 15 (12-20); Blood Urea Nitrogen 51 mg/dL (9-16); Calcium 9.1 mg/dL (8.4-10.2); Carbon Dioxide 23 mmol/L (22-29); Chloride 107 mmol/L (96-108); Estimated Glomerular Filt Rate 10; Glucose Random 152 mg/dL (60-115); Phosphorus 2.9 mg/dL (2.7-4.5); Sodium 142 mmol/L (135-145)
[2023-06-27 11:30] LABS: HBS Num1 0.37 mIU/mL (0-7.99); HBc Num1 0.11 S/CO (0.00-0.79); HBsAGNum1 0.44 S/CO (0.00-0.99); Hepatitis B Core Antibody Nonreactive (Nonreactive); Hepatitis B Surface Antigen Negative (Negative); ~Hepatitis B Surface Antibody NONREACTIVE (Nonreactive)
--- NOTE | 2023-06-27 13:02 | W.PM.DNNEP ---
Subjective Subjective This patient was seen during dialysis. Interval history: Feels better Physical Exam Vital Signs: Vital Signs: Last Vital Signs Temp 97.3 F 06/27/23 07:37 Pulse 69 06/27/23 07:37 Resp 20 06/27/23 07:37 BP 103/51 L 06/27/23 07:37 Pulse Ox 99 06/27/23 07:37 O2 Del Method Room Air 06/27/23 07:37 O2 Flow Rate 2 06/21/23 07:39 Oxygen Flow Rate 2 06/15/23 18:39 BMI result Body Mass Index 27.8 Const: General: comfortable and no acute distress HEENT: Head: Yes normocephalic Mouth: Normal oral and palatal mucosa present Eyes: EOM: EOMs intact bilaterally Neck: Neck: Yes supple Resp: Auscultation: clear to auscultation bilaterally Cardio: Jugular venous distension: no JVD Rate: regular rate GI: Palpation (GI): Soft to palpation Auscultation: normal bowel sounds : General: Yes no CVA tenderness Back/Spine/Pelvis: Back: no CVA tenderness Skin: General skin exam: no rashes or lesions noted Neuro: General: moves all extremities Assessment & Plan Assessment and plan (1) PENNY (acute kidney injury): Status: Inactive (2) Ascites: Status: Inactive (3) Chronic indwelling Gordon catheter: Status: Inactive (4) Acute on chronic anemia: Status: Resolved Plan 67 yr old man with DOUGIE superimpose don CKD 3 DDX for PENNY : Hypoperfusion from volume depletion /low BP Possible tubular injury/ATN No obstruction r/o Compartment syndrome from tense ascites No improvement in renal function C3/C4 are low Suggest Keep SBP > 100 No need for diuretics Avoid nephrotoxins Paracenthesis p.r.n. Watch urine out put dialysis again tomorrow Watch renal function over weekend Time Spent With Patient Time: Total time managing care of this patient today ____ minutes. Procedures Date of Service Date of Service: 06/27/23
[2023-06-27] MEDS: rifAXIMin 550 MG TABLET PO ×2 (13:20→21:48)
[2023-06-27] MEDS: Gabapentin 100 MG CAPSULE 200 MG PO (13:20)
[2023-06-27] MEDS: Thiamine HCL 100 MG TABLET PO (13:20)
[2023-06-27] MEDS: Folic Acid 1 MG TABLET PO (13:20)
[2023-06-27 13:21] LABS: Glucose, Whole Blood 114 mg/dL (60-115)
[2023-06-27] MEDS: Naltrexone HCl 50 MG TABLET PO (13:21)
[2023-06-27] MEDS: Sertraline HCL 100 MG TABLET PO (13:21)
[2023-06-27] MEDS: Sodium Bicarbonate 650 MG TABLET PO ×3 (13:21→21:53)
[2023-06-27] MEDS: Nystatin Powder 15 GM BOTTLE 1 APPL TOPICAL (13:21)
[2023-06-27] MEDS: Multivitamin TABLET 1 TAB PO (13:21)
[2023-06-27 13:24] VITALS: BP 112/56; PULSE 78; RESP 20; TEMP 36.5; O2SAT 99
[2023-06-27 16:00] VITALS: BP 107/55; PULSE 69; RESP 20; TEMP 36.4; O2SAT 100
[2023-06-27 16:29] LABS: Glucose, Whole Blood 167 mg/dL (60-115)
[2023-06-27] MEDS: Lactulose 20 GM/30 ML SOLUTION 30 GM PO ×2 (16:35→21:49)
[2023-06-27] MEDS: Insulin Lispro 100 UNIT/ML 3 ML VIAL SUBCUT (16:36)
[2023-06-27 20:00] VITALS: BP 105/60; PULSE 69; RESP 20; TEMP 36.4; O2SAT 98
[2023-06-27 21:04] LABS: Glucose, Whole Blood 137 mg/dL (60-115)
[2023-06-28] VITALS (7 sets, daily range): BP systolic 107–127; BP diastolic 56–66; PULSE 66–78; RESP 18–20; TEMP 36.2–37.1; O2SAT 94–99
[2023-06-28] MEDS: Heparin Sodium,Porcine 5,000 UNIT/ML VIAL 5000 UNIT INTRACATH (05:39)
[2023-06-28] MEDS: Omeprazole 40 MG CAPSULE.DR PO (05:40)
[2023-06-28 07:20] LABS: Glucose, Whole Blood 169 mg/dL (60-115)
[2023-06-28] MEDS: Midodrine HCl 10 MG TABLET PO ×3 (08:37→17:16)
--- NOTE | 2023-06-28 09:01 | MHC.CM.PN ---
EMR REVIEWED, CM RECEIVED A CALL FROM TIA AT [facility] ASKING IF CM SPOKE TO PT'S HCP MAAME REGARDING BED HOLD WE ARE UNSURE IF PT WILL NEED HD AFTER DC, TIA AWARE [facility]AME WOULD LIKE TO CONT TO PAY FOR BED HOLD UNTIL WE ARE CERTAIN PT IS UNABLE TO RETURN D/T NEEDING HD POST DC, NO PLAN FOR DC AT THIS TIME, CM WILL CONT TO FOLLOW DC NEEDS.
[2023-06-28 09:18] LABS: Hematocrit 26.6 % (42.0-52.0); Mean Corpuscular HGB Conc 33.8 g/dl (31.0-36.0); Mean Corpuscular Hemoglobin 31.3 pg (27.0-33.0); Mean Corpuscular Volume 92.4 fL (80.0-98.0); Red Blood Count 2.88 X10*6/uL (4.60-5.80); Red Cell Distribution Width 17.8 % (11.0-16.0); White Blood Count 8.1 X10*3/uL (4.8-10.8)
[2023-06-28 09:39] LABS: Anion Gap 15 (12-20); Blood Urea Nitrogen 41 mg/dL (9-16); Calcium 9.3 mg/dL (8.4-10.2); Carbon Dioxide 23 mmol/L (22-29); Chloride 106 mmol/L (96-108); Estimated Glomerular Filt Rate 11; Glucose Random 177 mg/dL (60-115); Potassium 3.1 mmol/L (3.3-5.1); Sodium 141 mmol/L (135-145)
[2023-06-28 09:53] LABS: Mean Platelet Volume 10.9 fL (9.4-12.4)
[2023-06-28 09:54] LABS: Platelet Count 118 X10*3/uL (160-400)
[2023-06-28] MEDS: Insulin Lispro 100 UNIT/ML 3 ML VIAL SUBCUT ×2 (10:11→17:16)
[2023-06-28] MEDS: 0.9 % Sodium Chloride Flush 3 ML SYRINGE IVFLUSH ×3 (10:11→22:13)
[2023-06-28] MEDS: Sertraline HCL 100 MG TABLET PO (12:35)
[2023-06-28] MEDS: Thiamine HCL 100 MG TABLET PO (12:35)
[2023-06-28] MEDS: rifAXIMin 550 MG TABLET PO ×2 (12:35→22:13)
[2023-06-28] MEDS: Sodium Bicarbonate 650 MG TABLET PO ×3 (12:35→22:12)
[2023-06-28] MEDS: Gabapentin 100 MG CAPSULE 200 MG PO (12:35)
[2023-06-28] MEDS: Folic Acid 1 MG TABLET PO (12:35)
[2023-06-28] MEDS: Multivitamin TABLET 1 TAB PO (12:35)
[2023-06-28] MEDS: Naltrexone HCl 50 MG TABLET PO (12:35)
[2023-06-28] MEDS: Nystatin Powder 15 GM BOTTLE 1 APPL TOPICAL (12:36)
[2023-06-28] MEDS: Lidocaine HCl 1 % MPF 5 ML VIAL SUBCUT (13:43)
[2023-06-28 13:50] LABS: Glucose, Whole Blood 93 mg/dL (60-115)
--- NOTE | 2023-06-28 16:06 | HO.PM.IMPN ---
Subjective Subjective Date of Service: 06/28/23 Interval History: Seen and evaluated this morning alert and interactive while in dialysis abdomen distended having diarrhea Review of Systems Review of Systems: Yes all other systems are reviewed and are negative Physical Exam Vital Signs: Vital Signs: Last Vital Signs Temp 97.1 F 06/28/23 12:00 Pulse 78 06/28/23 15:50 Resp 20 06/28/23 12:00 BP 125/66 06/28/23 15:50 Pulse Ox 97 06/28/23 15:50 O2 Del Method Room Air 06/28/23 12:00 O2 Flow Rate 2 06/21/23 07:39 Oxygen Flow Rate 2 06/15/23 18:39 BMI result Body Mass Index 27.8 Const: Other: Constitutional : Awake, interactive, not in distress Neck : Normal inspection, Supple Cardiovascular : RRR, no JVP, no lower extremity edema, dialysis cath in place Respiratory : good bilateral air entry, no crackles, wheezes or rhonchi Gastrointestinal: soft, lax, Normal bowel sounds, abdomen distended with moderate ascites Skin : Warm, Dry Neurological : Alert & oriented x3, No focal deficit Objective Data Active Medications Acetaminophen (Acetaminophen 325 Mg Tablet) 650 mg PO Q6H PRN PRN Reason: Pain, Mild (Pain Scale 1-3) Bisacodyl (Bisacodyl 10 Mg Supp.Rect) 10 mg MS DAILY PRN PRN Reason: Constipation Folic Acid (Folic Acid 1 Mg Tablet) 1 mg PO DAILY [facility] Last Admin: 06/28/23 12:35 Dose: 1 mg Documented By: HEATH Gabapentin (Gabapentin 100 Mg Capsule) 200 mg PO DAILY [facility] Last Admin: 06/28/23 12:35 Dose: 200 mg Documented By: HEATH Glucose (Glucose Gel 15 Gm Gel..Gram.) 15 gm PO Q15M PRN; Protocol PRN Reason: per Hypoglycemia Standing Ord. Dextrose (D10) 250 mls @ 750 mls/hr IV Q15M PRN; Protocol PRN Reason: per Hypoglycemia Standing Ord. Insulin Human Lispro (Insulin Lispro 100 Unit/Ml 3 Ml Vial) 0 unit SUBCUT QIDACHS [facility]; Protocol Last Admin: 06/28/23 12:37 Dose: Not Given Documented By: HEATH Non-Admin Reason: No Insulin Coverage Lactulose (Lactulose 20 Gm/30 Ml Solution) 30 gm PO TID [facility] Last Admin: 06/28/23 10:14 Dose: Not Given Documented By: HEATH Non-Admin Reason: Patient Refused Melatonin (Melatonin 3 Mg Tablet) 6 mg PO BEDTIME PRN PRN Reason: Insomnia Last Admin: 06/20/23 21:05 Dose: 6 mg Documented By: MAYCO Midodrine (Midodrine Hcl 10 Mg Tablet) 10 mg PO TID@0900,1300,1700 [facility] Last Admin: 06/28/23 12:35 Dose: 10 mg Documented By: HEATH Multivitamins/Vitamin C (Multivitamin Tablet) 1 tab PO DAILY [facility] Last Admin: 06/28/23 12:35 Dose: 1 tab Documented By: HEATH Naltrexone HCl (Naltrexone Hcl 50 Mg Tablet) 50 mg PO DAILY [facility] Last Admin: 06/28/23 12:35 Dose: 50 mg Documented By: HEATH Nystatin (Nystatin Powder 15 Gm Bottle) 1 appl TOPICAL DAILY [facility]; Protocol Last Admin: 06/28/23 12:36 Dose: 1 appl Documented By: HEATH Omeprazole (Omeprazole 40 Mg Capsule.Dr) 40 mg PO DAILY@0630 [facility] Last Admin: 06/28/23 05:40 Dose: 40 mg Documented By: TISHA Ondansetron HCl (Ondansetron Hcl 4 Mg/2 Ml Vial) 4 mg IVPUSH Q8H PRN PRN Reason: Nausea and Vomiting Last Admin: 06/17/23 09:31 Dose: 4 mg Documented By: NORI Rifaximin (Rifaximin 550 Mg Tablet) 550 mg PO BID [facility] Last Admin: 06/28/23 12:35 Dose: 550 mg Documented By: HEATH Sertraline HCl (Sertraline Hcl 100 Mg Tablet) 100 mg PO DAILY [facility] Last Admin: 06/28/23 12:35 Dose: 100 mg Documented By: HEATH Sodium Bicarbonate (Sodium Bicarbonate 650 Mg Tablet) 650 mg PO TID [facility] Last Admin: 06/28/23 15:49 Dose: 650 mg Documented By: HEATH Sodium Biphosphate/Sodium Phosphate (Sodium Phosphate,[place]-Dibasic 133 Ml Enema) 118 ml MS DAILY PRN PRN Reason: Constipation Sodium Chloride (0.9 % Sodium Chloride Flush 3 Ml Syringe) 3 ml IVFLUSH QSHIFT [facility] Last Admin: 06/28/23 15:52 Dose: 3 ml Documented By: HEATH Thiamine HCl (Thiamine Hcl 100 Mg Tablet) 100 mg PO DAILY [facility] Last Admin: 06/28/23 12:35 Dose: 100 mg Documented By: HEATH Labs 06/28/23 09:05 06/28/23 09:05 Labs: Laboratory Results - last 24 hr 06/27/23 06/27/23 06/28/23 16:25 20:58 07:10 MCV MCH MCHC RDW Plt Count MPV Absolute Nucleated RBC Nucleated RBC % (auto) Anion Gap Estim Creat Clear Calc Estimated GFR POC Glucose 167 H 137 H 169 H Random Glucose Calcium 06/28/23 06/28/23 09:05 12:36 MCV 92.4 MCH 31.3 MCHC 33.8 RDW 17.8 H Plt Count 118 L D MPV 10.9 Absolute Nucleated RBC 0.000 Nucleated RBC % (auto) 0.0 Anion Gap 15 Estim Creat Clear Calc 14.0 Estimated GFR 11 POC Glucose 93 Random Glucose 177 H Calcium 9.3 Assessment and Plan (1) Acute on chronic renal failure: Status: Acute (2) Catheter-associated urinary tract infection: Status: Acute (3) Acute hepatic encephalopathy: Status: Acute Plan 67-year-old gentleman with history of alcoholic cirrhosis, chronic indwelling urine catheter, orthostatic hypotension on midodrine, GERD, diabetes mellitus type 2 on insulin, recently discharged from [facility] on June 09 after management for decompensated hepatic cirrhosis with ascites and acute kidney injury and readmitted a week later with Acute on chronic renal failure likely 2/2 ATN, HRS, Pre renal azotemia, doubt cardiorenal Due to lack of improvement with IV fluid, IV albumin albumin, and worsening creatinine, temporary right IJ hemodialysis catheter was placed and patient underwent hemodialysis on 06/25 Patient healthcare proxy is his , informed her about initiation and continuation of hemodialysis. daughter is Maria Kline [phone]. 3rd session today Nephrology following Hepatic encephalopathy (grade II) triggered by acute infection (UTI), renal failure and possible GI bleeding. Confusion resolved. continue lactulose. hold for diarrhea Acute on chronic normocytic Anemia no acute GI bleed noted, iron studies not consistent with iron deficiency, recent endoscopy [facility] 05/04 showed no portal hypertensive gastropathy or varices . stable H&H Transfused 2 units of PRBCs s/p octreotide,continue PPI , Seen by GI ,no endoscopy recommended at this time. Chronic hypotension stable BP, continue midodrine, follow BP. Chronic Metabolic acidosis likely from renal failure, bicarb stable, on bicarb replacement . Marked ascites IR removed 5 L on 06/16, removed another 5L 06/27 monitor HFrEF/cardiomyopathy (30-35%). No acute decompensation, continue close clinical follow-up, chest x-ray showed no acute process. Catheter-associated urinary tract infection. Yesy glabarta, discuss with ID she does not recommend treatment will DC Diflucan Seizure likely secondary to hepatic encephalopathy. Seizure precautions, no recurrent seizures noted. IV Ativan 1 mg as needed Type 2 diabetes mellitus. on diabetic diet , stable blood sugars, not on Insulin sliding scale, hemoglobin A1c 5.3. Not on oral hypoglycemics or scheduled insulin at home. Mood disorder. Continue sertraline. DVT prophylaxis: Compression boots, hold heparin given anemia and concern for gib, Code status: Full need for inpaitent;management for acute on chronic kidney on HD pending Permacath placement and outpatient dialysis spot. Quality Stroke Does the patient have a stroke diagnosis?: No VTE Prior VTE?: No VTE Risk Level:: Medical - moderate - high VTE Device Contraindication: N/A - Device Ordered VTE Drug Contraindication: Treatment Not Indicated
[2023-06-28 16:39] LABS: Glucose, Whole Blood 213 mg/dL (60-115)
[2023-06-28] MEDS: Albumin Human 25 % 100 ML IV ×2 (17:18→20:53)
--- NOTE | 2023-06-28 20:59 | P.PNNP_ITS ---
Subjective Subjective Date of Service: 06/28/23 Interval history: Seen and evaluated this morning on HD; alert and interactive while in dialysis ; All recent data reviewed Physical Exam 2 Vital Signs: Vital Signs: Last Vital Signs Temp 98 F 06/28/23 20:00 Pulse 72 06/28/23 20:00 Resp 18 06/28/23 20:00 BP 124/60 06/28/23 20:00 Pulse Ox 99 06/28/23 20:00 O2 Del Method Room Air 06/28/23 20:00 O2 Flow Rate 2 06/21/23 07:39 Oxygen Flow Rate 2 06/15/23 18:39 BMI result Body Mass Index 27.8 Const: General: comfortable and no acute distress HEENT: Head: Yes normocephalic Mouth: Normal oral and palatal mucosa present Eyes: EOM: EOMs intact bilaterally Resp: Auscultation: clear to auscultation bilaterally Cardio: Jugular venous distension: no JVD Rate: regular rate GI: Auscultation: normal bowel sounds Neuro: General: moves all extremities Objective Data Labs 06/28/23 09:05 06/28/23 09:05 Labs: Laboratory Results - last 24 hr 06/27/23 06/28/23 06/28/23 20:58 07:10 09:05 WBC 8.1 RBC 2.88 L Hgb 9.0 L Hct 26.6 L MCV 92.4 MCH 31.3 MCHC 33.8 RDW 17.8 H Plt Count 118 L D MPV 10.9 Absolute Nucleated RBC 0.000 Nucleated RBC % (auto) 0.0 Sodium 141 Potassium 3.1 L Chloride 106 Carbon Dioxide 23 Anion Gap 15 BUN 41 H Creatinine 5.21 H* Estim Creat Clear Calc 14.0 Estimated GFR 11 POC Glucose 137 H 169 H Random Glucose 177 H Calcium 9.3 06/28/23 06/28/23 12:36 16:36 WBC RBC Hgb Hct MCV MCH MCHC RDW Plt Count MPV Absolute Nucleated RBC Nucleated RBC % (auto) Sodium Potassium Chloride Carbon Dioxide Anion Gap BUN Creatinine Estim Creat Clear Calc Estimated GFR POC Glucose 93 213 H Random Glucose Calcium Microbiology Microbiology Results: Microbiology 06/17/23 11:30 Paracentesis Fluid Gram Stain - Final 06/17/23 11:30 Paracentesis Fluid Anaerobic Culture - Final NO GROWTH AFTER 5 DAYS 06/17/23 11:30 Paracentesis Fluid Body Fluid Culture - Final No growth after 2 days 06/16/23 00:02 Blood - Venous Blood Culture - Final No growth after 5 days. 06/16/23 00:02 Blood - Venous Blood Culture - Final No growth after 5 days. 06/15/23 21:41 Urine Catheterized - Straight Catheter Urine Culture - Final Yesy glabrata Procedures Date of Service Date of Service: 06/28/23 Assessment & Plan Assessment and plan (1) Acute on chronic renal failure: Status: Acute Plan 67 yr old man with PENNY superimposed on CKD 3 PENNY likely due to hypoperfusion from volume depletion /low BP Possible tubular injury; Serum creatinine worsened and HD initiated DDx- HRS; Seen on HD( 3rd session today) Has underlying HRS 2 at baseline; For HD again on Saturday Monitor closely for renal recovery Need permcath after weekend Needs goals of care discussion if no renal recovery If agreeable to continue HD, needs to get outpt HD spot after W/E Progress Note: Quality Stroke Does the patient have a stroke diagnosis?: No
[2023-06-28 21:52] LABS: Glucose, Whole Blood 128 mg/dL (60-115)
[2023-06-29] VITALS (7 sets, daily range): BP systolic 96–138; BP diastolic 51–58; PULSE 70–85; RESP 16–20; TEMP 36–36.8; O2SAT 93–98
[2023-06-29] MEDS: Omeprazole 40 MG CAPSULE.DR PO (07:33)
[2023-06-29 07:44] LABS: Glucose, Whole Blood 153 mg/dL (60-115)
[2023-06-29 11:44] LABS: Glucose, Whole Blood 171 mg/dL (60-115)
[2023-06-29] MEDS: Lactulose 20 GM/30 ML SOLUTION 30 GM PO ×3 (12:21→22:52)
[2023-06-29] MEDS: Multivitamin TABLET 1 TAB PO (12:22)
[2023-06-29] MEDS: Gabapentin 100 MG CAPSULE 200 MG PO (12:22)
[2023-06-29] MEDS: Folic Acid 1 MG TABLET PO (12:22)
[2023-06-29] MEDS: Sertraline HCL 100 MG TABLET PO (12:22)
[2023-06-29] MEDS: Naltrexone HCl 50 MG TABLET PO (12:22)
[2023-06-29] MEDS: Sodium Bicarbonate 650 MG TABLET PO ×3 (12:23→22:51)
[2023-06-29] MEDS: Midodrine HCl 10 MG TABLET PO ×3 (12:23→18:19)
[2023-06-29] MEDS: Nystatin Powder 15 GM BOTTLE 1 APPL TOPICAL (12:23)
[2023-06-29] MEDS: rifAXIMin 550 MG TABLET PO ×2 (12:24→22:51)
[2023-06-29] MEDS: 0.9 % Sodium Chloride Flush 3 ML SYRINGE IVFLUSH ×3 (12:25→22:52)
[2023-06-29] MEDS: Thiamine HCL 100 MG TABLET PO (12:26)
[2023-06-29] MEDS: Insulin Lispro 100 UNIT/ML 3 ML VIAL SUBCUT ×3 (12:27→22:51)
--- NOTE | 2023-06-29 14:18 | HO.PM.IMPN ---
Subjective Subjective Date of Service: 06/29/23 Interval History: Seen and evaluated this morning alert and interactive abdomen mildly distended no BM overnight Review of Systems Review of Systems: Yes all other systems are reviewed and are negative Physical Exam Vital Signs: Vital Signs: Last Vital Signs Temp 96.9 F 06/29/23 11:32 Pulse 72 06/29/23 11:32 Resp 20 06/29/23 11:32 BP 96/53 L 06/29/23 11:32 Pulse Ox 96 06/29/23 11:32 O2 Del Method Room Air 06/29/23 11:32 O2 Flow Rate 2 06/21/23 07:39 Oxygen Flow Rate 2 06/15/23 18:39 BMI result Body Mass Index 27.8 Const: Other: Constitutional : Awake, interactive, not in distress Neck : Normal inspection, Supple Cardiovascular : RRR, no JVP, no lower extremity edema, dialysis cath in place Respiratory : good bilateral air entry, no crackles, wheezes or rhonchi Gastrointestinal: soft, lax, Normal bowel sounds, abdomen distended with mild ascites Skin : Warm, Dry Neurological : Alert & oriented x3, No focal deficit Objective Data Active Medications Acetaminophen (Acetaminophen 325 Mg Tablet) 650 mg PO Q6H PRN PRN Reason: Pain, Mild (Pain Scale 1-3) Bisacodyl (Bisacodyl 10 Mg Supp.Rect) 10 mg [place] DAILY PRN PRN Reason: Constipation Folic Acid (Folic Acid 1 Mg Tablet) 1 mg PO DAILY [facility] Last Admin: 06/29/23 12:22 Dose: 1 mg Documented By: MELECIO Gabapentin (Gabapentin 100 Mg Capsule) 200 mg PO DAILY [facility] Last Admin: 06/29/23 12:22 Dose: 200 mg Documented By: MELECIO Glucose (Glucose Gel 15 Gm Gel..Gram.) 15 gm PO Q15M PRN; Protocol PRN Reason: per Hypoglycemia Standing Ord. Heparin Sodium (Porcine) (Heparin Sodium,Porcine 5,000 Unit/Ml Vial) 5,000 unit INTRACATH MOWEFR@1645 [facility] Dextrose (D10) 250 mls @ 750 mls/hr IV Q15M PRN; Protocol PRN Reason: per Hypoglycemia Standing Ord. Insulin Human Lispro (Insulin Lispro 100 Unit/Ml 3 Ml Vial) 0 unit SUBCUT QIDACHS [facility]; Protocol Last Admin: 06/29/23 12:27 Dose: 2 unit Documented By: MELECIO Lactulose (Lactulose 20 Gm/30 Ml Solution) 30 gm PO TID [facility] Last Admin: 06/29/23 12:21 Dose: 20 gm Documented By: MELECIO Melatonin (Melatonin 3 Mg Tablet) 6 mg PO BEDTIME PRN PRN Reason: Insomnia Last Admin: 06/20/23 21:05 Dose: 6 mg Midodrine (Midodrine Hcl 10 Mg Tablet) 10 mg PO TID@0900,1300,1700 [facility] Last Admin: 06/29/23 12:23 Dose: 10 mg Documented By: MELECIO Multivitamins/Vitamin C (Multivitamin Tablet) 1 tab PO DAILY [facility] Last Admin: 06/29/23 12:22 Dose: 1 tab Documented By: MELECIO Naltrexone HCl (Naltrexone Hcl 50 Mg Tablet) 50 mg PO DAILY [facility] Last Admin: 06/29/23 12:22 Dose: 50 mg Documented By: MELECIO Nystatin (Nystatin Powder 15 Gm Bottle) 1 appl TOPICAL DAILY [facility]; Protocol Last Admin: 06/29/23 12:23 Dose: 1 appl Documented By: MELECIO Omeprazole (Omeprazole 40 Mg Capsule.Dr) 40 mg PO DAILY@0630 [facility] Last Admin: 06/29/23 07:33 Dose: 40 mg Documented By: MAYCO Ondansetron HCl (Ondansetron Hcl 4 Mg/2 Ml Vial) 4 mg IVPUSH Q8H PRN PRN Reason: Nausea and Vomiting Last Admin: 06/17/23 09:31 Dose: 4 mg Documented By: NORI Rifaximin (Rifaximin 550 Mg Tablet) 550 mg PO BID [facility] Last Admin: 06/29/23 12:24 Dose: 550 mg Documented By: MELECIO Sertraline HCl (Sertraline Hcl 100 Mg Tablet) 100 mg PO DAILY [facility] Last Admin: 06/29/23 12:22 Dose: 100 mg Documented By: MELECIO Sodium Bicarbonate (Sodium Bicarbonate 650 Mg Tablet) 650 mg PO TID [facility] Last Admin: 06/29/23 12:23 Dose: 650 mg Documented By: MELECIO Sodium Biphosphate/Sodium Phosphate (Sodium Phosphate,[place]-Dibasic 133 Ml Enema) 118 ml [place] DAILY PRN PRN Reason: Constipation Sodium Chloride (0.9 % Sodium Chloride Flush 3 Ml Syringe) 3 ml IVFLUSH QSHIFT [facility] Last Admin: 06/29/23 12:25 Dose: 3 ml Documented By: MELECIO Thiamine HCl (Thiamine Hcl 100 Mg Tablet) 100 mg PO DAILY [facility] Last Admin: 06/29/23 12:26 Dose: 100 mg Documented By: MELECIO Labs 06/28/23 09:05 06/28/23 09:05 Labs: Laboratory Results - last 24 hr 06/28/23 06/28/23 06/29/23 16:36 21:47 07:38 POC Glucose 213 H 128 H 153 H 06/29/23 11:35 POC Glucose 171 H Assessment and Plan (1) Acute on chronic renal failure: Status: Acute (2) Catheter-associated urinary tract infection: Status: Acute (3) Chronic systolic (congestive) heart failure: Status: Acute (4) Acute hepatic encephalopathy: Status: Acute Plan 67-year-old gentleman with history of alcoholic cirrhosis, chronic indwelling urine catheter, orthostatic hypotension on midodrine, GERD, diabetes mellitus type 2 on insulin, recently discharged from [facility] on June 09 after management for decompensated hepatic cirrhosis with ascites and acute kidney injury and readmitted a week later with Acute on chronic renal failure likely 2/2 ATN, HRS, Pre renal azotemia, doubt cardiorenal Due to lack of improvement with IV fluid, IV albumin albumin, and worsening creatinine, temporary right IJ hemodialysis catheter was placed and patient underwent hemodialysis on 06/25 Patient healthcare proxy is his , informed her about initiation and continuation of hemodialysis. daughter is Maria Kline [phone]. Had 3 sessions of HD, next on Saturday To Place Permacath Saturday if continues to need HD Nephrology following Hepatic encephalopathy (grade II) triggered by acute infection (UTI), renal failure and possible GI bleeding. Confusion resolved. continue lactulose. hold for diarrhea Acute on chronic normocytic Anemia no acute GI bleed noted, iron studies not consistent with iron deficiency, recent endoscopy [facility] 05/04 showed no portal hypertensive gastropathy or varices . stable H&H Transfused 2 units of PRBCs s/p octreotide,continue PPI , Seen by GI ,no endoscopy recommended at this time. Chronic hypotension stable BP, continue midodrine, follow BP. Chronic Metabolic acidosis likely from renal failure, bicarb stable, on bicarb replacement . Marked ascites IR removed 5 L on 06/16, removed another 5L 06/27 monitor HFrEF/cardiomyopathy (30-35%). No acute decompensation, continue close clinical follow-up, chest x-ray showed no acute process. Catheter-associated urinary tract infection. Yesy glabarta, discuss with ID she does not recommend treatment will DC Diflucan Seizure likely secondary to hepatic encephalopathy. Seizure precautions, no recurrent seizures noted. IV Ativan 1 mg as needed Type 2 diabetes mellitus. on diabetic diet , stable blood sugars, not on Insulin sliding scale, hemoglobin A1c 5.3. Not on oral hypoglycemics or scheduled insulin at home. Mood disorder. Continue sertraline. DVT prophylaxis: Compression boots, hold heparin given anemia and concern for gib, Code status: Full need for inpaitent;management for acute on chronic kidney on HD pending Permacath placement and outpatient dialysis spot. Quality Stroke Does the patient have a stroke diagnosis?: No VTE Prior VTE?: No VTE Risk Level:: Medical - moderate - high VTE Device Contraindication: N/A - Device Ordered VTE Drug Contraindication: Treatment Not Indicated
[2023-06-29 16:01] LABS: Glucose, Whole Blood 183 mg/dL (60-115)
[2023-06-29 19:49] LABS: Glucose, Whole Blood 196 mg/dL (60-115)
[2023-06-30 03:34] VITALS: BP 106/53; PULSE 76; RESP 20; TEMP 37.3; O2SAT 94
[2023-06-30 07:24] VITALS: BP 90/63; PULSE 81; RESP 18; TEMP 36.6; O2SAT 100
[2023-06-30 07:36] LABS: Glucose, Whole Blood 159 mg/dL (60-115)
[2023-06-30] MEDS: Insulin Lispro 100 UNIT/ML 3 ML VIAL SUBCUT ×4 (08:52→20:32)
[2023-06-30] MEDS: Lactulose 20 GM/30 ML SOLUTION 30 GM PO (08:53)
[2023-06-30] MEDS: Folic Acid 1 MG TABLET PO (08:53)
[2023-06-30] MEDS: Sodium Bicarbonate 650 MG TABLET PO ×3 (08:53→20:34)
[2023-06-30] MEDS: Thiamine HCL 100 MG TABLET PO (08:53)
[2023-06-30] MEDS: Multivitamin TABLET 1 TAB PO (08:53)
[2023-06-30] MEDS: Naltrexone HCl 50 MG TABLET PO (08:53)
[2023-06-30] MEDS: Gabapentin 100 MG CAPSULE 200 MG PO (08:53)
[2023-06-30] MEDS: rifAXIMin 550 MG TABLET PO ×2 (08:53→20:34)
[2023-06-30] MEDS: Sertraline HCL 100 MG TABLET PO (08:53)
[2023-06-30] MEDS: Midodrine HCl 10 MG TABLET PO ×3 (08:53→16:48)
[2023-06-30] MEDS: 0.9 % Sodium Chloride Flush 3 ML SYRINGE IVFLUSH ×3 (08:54→20:38)
--- NOTE | 2023-06-30 10:26 | P.PNIM_ITS ---
Subjective Subjective Date of Service: 06/30/23 Interval History: Seen and evaluated this morning alert and interactive abdomen mildly distended no overnight events Review of Systems Review of Systems: Yes all other systems are reviewed and are negative Physical Exam 2 Vital Signs: Vital Signs: Last Vital Signs Temp 97.8 F 06/30/23 07:24 Pulse 81 06/30/23 07:24 Resp 18 06/30/23 07:24 BP 90/63 06/30/23 07:24 Pulse Ox 100 06/30/23 07:24 O2 Del Method Room Air 06/30/23 07:24 O2 Flow Rate 2 06/21/23 07:39 Oxygen Flow Rate 2 06/15/23 18:39 BMI result Body Mass Index 27.8 Const: Other: Constitutional : Awake, interactive, not in distress Neck : Normal inspection, Supple Cardiovascular : RRR, no JVP, no lower extremity edema, dialysis cath in place Respiratory : good bilateral air entry, no crackles, wheezes or rhonchi Gastrointestinal: soft, lax, Normal bowel sounds, abdomen distended with mild ascites Skin : Warm, Dry Neurological : Alert & oriented x3, No focal deficit Objective Data Active Medications Acetaminophen (Acetaminophen 325 Mg Tablet) 650 mg PO Q6H PRN PRN Reason: Pain, Mild (Pain Scale 1-3) Bisacodyl (Bisacodyl 10 Mg Supp.Rect) 10 mg [place] DAILY PRN PRN Reason: Constipation Folic Acid (Folic Acid 1 Mg Tablet) 1 mg PO DAILY [facility] Last Admin: 06/30/23 08:53 Dose: 1 mg Documented By: ALEX Gabapentin (Gabapentin 100 Mg Capsule) 200 mg PO DAILY [facility] Last Admin: 06/30/23 08:53 Dose: 200 mg Documented By: ALEX Glucose (Glucose Gel 15 Gm Gel..Gram.) 15 gm PO Q15M PRN; Protocol PRN Reason: per Hypoglycemia Standing Ord. Heparin Sodium (Porcine) (Heparin Sodium,Porcine 5,000 Unit/Ml Vial) 5,000 unit INTRACATH MOWEFR@1645 [facility] Dextrose (D10) 250 mls @ 750 mls/hr IV Q15M PRN; Protocol PRN Reason: per Hypoglycemia Standing Ord. Insulin Human Lispro (Insulin Lispro 100 Unit/Ml 3 Ml Vial) 0 unit SUBCUT QIDACHS [facility]; Protocol Last Admin: 06/30/23 08:52 Dose: 2 unit Documented By: ALEX Lactulose (Lactulose 20 Gm/30 Ml Solution) 30 gm PO TID [facility] Last Admin: 06/30/23 08:53 Dose: 30 gm Documented By: ALEX Melatonin (Melatonin 3 Mg Tablet) 6 mg PO BEDTIME PRN PRN Reason: Insomnia Last Admin: 06/20/23 21:05 Dose: 6 mg Midodrine (Midodrine Hcl 10 Mg Tablet) 10 mg PO TID@0900,1300,1700 [facility] Last Admin: 06/30/23 08:53 Dose: 10 mg Documented By: ALEX Multivitamins/Vitamin C (Multivitamin Tablet) 1 tab PO DAILY [facility] Last Admin: 06/30/23 08:53 Dose: 1 tab Documented By: ALEX Naltrexone HCl (Naltrexone Hcl 50 Mg Tablet) 50 mg PO DAILY [facility] Last Admin: 06/30/23 08:53 Dose: 50 mg Documented By: ALEX Nystatin (Nystatin Powder 15 Gm Bottle) 1 appl TOPICAL DAILY [facility]; Protocol Last Admin: 06/29/23 12:23 Dose: 1 appl Documented By: MELECIO Omeprazole (Omeprazole 40 Mg Capsule.Dr) 40 mg PO DAILY@0630 [facility] Last Admin: 06/30/23 07:47 Dose: Not Given Documented By: MAYCO Non-Admin Reason: Patient Refused Ondansetron HCl (Ondansetron Hcl 4 Mg/2 Ml Vial) 4 mg IVPUSH Q8H PRN PRN Reason: Nausea and Vomiting Last Admin: 06/17/23 09:31 Dose: 4 mg Documented By: NORI Rifaximin (Rifaximin 550 Mg Tablet) 550 mg PO BID [facility] Last Admin: 06/30/23 08:53 Dose: 550 mg Documented By: ALEX Sertraline HCl (Sertraline Hcl 100 Mg Tablet) 100 mg PO DAILY [facility] Last Admin: 06/30/23 08:53 Dose: 100 mg Documented By: ALEX Sodium Bicarbonate (Sodium Bicarbonate 650 Mg Tablet) 650 mg PO TID [facility] Last Admin: 06/30/23 08:53 Dose: 650 mg Documented By: ALEX Sodium Biphosphate/Sodium Phosphate (Sodium Phosphate,Sandoval-Dibasic 133 Ml Enema) 118 ml [place] DAILY PRN PRN Reason: Constipation Sodium Chloride (0.9 % Sodium Chloride Flush 3 Ml Syringe) 3 ml IVFLUSH QSHIFT [facility] Last Admin: 06/30/23 08:54 Dose: 3 ml Documented By: ALEX Thiamine HCl (Thiamine Hcl 100 Mg Tablet) 100 mg PO DAILY [facility] Last Admin: 06/30/23 08:53 Dose: 100 mg Documented By: ALEX Labs 06/28/23 09:05 06/28/23 09:05 Labs: Laboratory Results - last 24 hr 06/29/23 06/29/23 06/29/23 11:35 15:56 19:45 POC Glucose 171 H 183 H 196 H 06/30/23 07:31 POC Glucose 159 H Assessment and Plan (1) Acute on chronic renal failure: Status: Acute (2) Catheter-associated urinary tract infection: Status: Acute (3) Acute hepatic encephalopathy: Status: Acute Plan 67-year-old gentleman with history of alcoholic cirrhosis, chronic indwelling urine catheter, orthostatic hypotension on midodrine, GERD, diabetes mellitus type 2 on insulin, recently discharged from [facility] on June 09 after management for decompensated hepatic cirrhosis with ascites and acute kidney injury and readmitted a week later with Acute on chronic renal failure likely 2/2 ATN, HRS, Pre renal azotemia, doubt cardiorenal Due to lack of improvement with IV fluid, IV albumin albumin, and worsening creatinine, temporary right IJ hemodialysis catheter was placed and patient underwent hemodialysis on 06/25 Patient healthcare proxy is his , informed her about initiation and continuation of hemodialysis. daughter is Maria Kline [phone]. Had 3 sessions of HD[facility] Nephrology following Hepatic encephalopathy (grade II) triggered by acute infection (UTI), renal failure and possible GI bleeding. Confusion resolved. continue lactulose. hold for diarrhea Acute on chronic normocytic Anemia no acute GI bleed noted, iron studies not consistent with iron deficiency, recent endoscopy [facility] 05/04 showed no portal hypertensive gastropathy or varices . stable H&H Transfused 2 units of PRBCs s/p octreotide,continue PPI , Seen by GI ,no endoscopy recommended at this time. Chronic hypotension stable BP, continue midodrine, follow BP. Chronic Metabolic acidosis likely from renal failure, bicarb stable, on bicarb replacement . Marked ascites IR removed 5 L on 06/16, removed another 5L 06/27 monitor HFrEF/cardiomyopathy (30-35%). No acute decompensation, continue close clinical follow-up, chest x-ray showed no acute process. Catheter-associated urinary tract infection. Yesy glabarta, discuss with ID she does not recommend treatment will DC Diflucan Seizure likely secondary to hepatic encephalopathy. Seizure precautions, no recurrent seizures noted. IV Ativan 1 mg as needed Type 2 diabetes mellitus. on diabetic diet , stable blood sugars, not on Insulin sliding scale, hemoglobin A1c 5.3. Not on oral hypoglycemics or scheduled insulin at home. Mood disorder. Continue sertraline. DVT prophylaxis: Compression boots, hold heparin given anemia and concern for gib, Code status: Full need for inpaitent;management for acute on chronic kidney on HD pending Permacath placement and outpatient dialysis spot. Quality Stroke Does the patient have a stroke diagnosis?: No VTE Prior VTE?: No VTE Risk Level:: Medical - moderate - high VTE Device Contraindication: N/A - Device Ordered VTE Drug Contraindication: Treatment Not Indicated
[2023-06-30 10:54] LABS: INTERNATIONAL NORM RATIO 1.1 (0.9-1.1); Prothrombin Time 13.6 SEC (11.1-13.3)
[2023-06-30 11:03] VITALS: BP 96/53; PULSE 76; RESP 18; TEMP 36.6; O2SAT 99
[2023-06-30 11:05] LABS: Anion Gap 18 (12-20); Blood Urea Nitrogen 35 mg/dL (9-16); Calcium 9.8 mg/dL (8.4-10.2); Carbon Dioxide 21 mmol/L (22-29); Chloride 106 mmol/L (96-108); Creatinine Clr Calc Pharmacy 13.1; Estimated Glomerular Filt Rate 10; Glucose Random 148 mg/dL (60-115); Potassium 3.5 mmol/L (3.3-5.1); Sodium 141 mmol/L (135-145)
[2023-06-30 11:13] LABS: Glucose, Whole Blood 162 mg/dL (60-115)
[2023-06-30] MEDS: Nystatin Powder 15 GM BOTTLE 1 APPL TOPICAL (11:44)
[2023-06-30 16:00] VITALS: BP 120/68; PULSE 82; RESP 18; TEMP 36.6; O2SAT 100
[2023-06-30 16:34] LABS: Glucose, Whole Blood 201 mg/dL (60-115)
[2023-06-30 19:48] VITALS: BP 97/54; PULSE 86; RESP 18; TEMP 36.8; O2SAT 98
[2023-06-30 20:15] LABS: Glucose, Whole Blood 161 mg/dL (60-115)
[2023-06-30] MEDS: Acetaminophen 325 MG TABLET 650 MG PO (20:36)
[2023-07-01] VITALS (7 sets, daily range): BP systolic 97–121; BP diastolic 51–60; PULSE 69–82; RESP 16–20; TEMP -17.7–37.2; O2SAT 92–100
--- NOTE | 2023-07-01 | ECG_ITS ---
Test Reason : ? rhythm cange Blood Pressure : / mmHG Vent. Rate : 087 BPM Atrial Rate : 087 BPM P-R Int : 232 ms QRS Dur : 168 ms QT Int : 462 ms P-R-T Axes : 000 270 066 degrees QTc Int : 555 ms Sinus rhythm with 1st degree A-V block Right bundle branch block Abnormal ECG When compared with ECG of 15-JUN-2023 21:19, Questionable change in QRS duration Borderline criteria for Lateral infarct are no longer Present Criteria for Inferior infarct are no longer Present Referred By: Blair Connor Electronically Signed By:ANYI DURAN MD
[2023-07-01] MEDS: Omeprazole 40 MG CAPSULE.DR PO (06:13)
[2023-07-01 07:42] LABS: Glucose, Whole Blood 145 mg/dL (60-115)
[2023-07-01] MEDS: Nystatin Powder 15 GM BOTTLE 1 APPL TOPICAL (10:16)
[2023-07-01] MEDS: 0.9 % Sodium Chloride Flush 3 ML SYRINGE IVFLUSH ×3 (10:17→21:00)
[2023-07-01] MEDS: Midodrine HCl 10 MG TABLET PO ×3 (11:07→18:00)
--- NOTE | 2023-07-01 13:04 | W.PM.DNNEP ---
Subjective Subjective This patient was seen during dialysis. Interval history: Seen and evaluated this morning alert and interactive Physical Exam Vital Signs: Vital Signs: Last Vital Signs Temp 0 F L 07/01/23 12:00 Pulse 75 07/01/23 07:49 Resp 20 07/01/23 07:49 BP 97/51 L 07/01/23 07:49 Pulse Ox 99 07/01/23 07:49 O2 Del Method Room Air 07/01/23 07:49 O2 Flow Rate 2 06/21/23 07:39 Oxygen Flow Rate 2 06/15/23 18:39 BMI result Body Mass Index 27.8 Const: General: comfortable and no acute distress HEENT: Head: Yes normocephalic Mouth: Normal oral and palatal mucosa present Eyes: EOM: EOMs intact bilaterally Neck: Neck: Yes supple Resp: Auscultation: clear to auscultation bilaterally Cardio: Jugular venous distension: no JVD Rate: regular rate GI: Palpation (GI): Soft to palpation Auscultation: normal bowel sounds : General: Yes no CVA tenderness Back/Spine/Pelvis: Back: no CVA tenderness Skin: General skin exam: no rashes or lesions noted Neuro: General: moves all extremities Assessment & Plan Assessment and plan (1) PENNY (acute kidney injury): Status: Inactive (2) Ascites: Status: Inactive (3) Chronic indwelling Gordon catheter: Status: Inactive (4) Acute on chronic anemia: Status: Resolved Plan 67 yr old man with DOUGIE superimpose don CKD 3 DDX for PENNY : Hypoperfusion from volume depletion /low BP Possible tubular injury/ATN No obstruction r/o Compartment syndrome from tense ascites No improvement in renal function C3/C4 are low Suggest Keep SBP > 100 No need for diuretics Avoid nephrotoxins Paracenthesis p.r.n. Watch urine out put Watch renal function Time Spent With Patient Time: Total time managing care of this patient today ____ minutes. Procedures Date of Service Date of Service: 07/01/23
--- NOTE | 2023-07-01 13:58 | P.PNIM_ITS ---
Subjective Subjective Date of Service: 07/01/23 Interval History: Seen and evaluated this morning alert and interactive while in dialysis session Permacath in place abdomen mildly distended no overnight events Review of Systems Review of Systems: Yes all other systems are reviewed and are negative Physical Exam 2 Vital Signs: Vital Signs: Last Vital Signs Temp 0 F L 07/01/23 12:00 Pulse 75 07/01/23 07:49 Resp 20 07/01/23 07:49 BP 97/51 L 07/01/23 07:49 Pulse Ox 99 07/01/23 07:49 O2 Del Method Room Air 07/01/23 07:49 O2 Flow Rate 2 06/21/23 07:39 Oxygen Flow Rate 2 06/15/23 18:39 BMI result Body Mass Index 27.8 Const: Other: Constitutional : Awake, interactive, not in distress Neck : Normal inspection, Supple Cardiovascular : RRR, no JVP, no lower extremity edema, PErma-cath in place Respiratory : good bilateral air entry, no crackles, wheezes or rhonchi Gastrointestinal: soft, lax, Normal bowel sounds, abdomen distended with mild- moderate ascites Skin : Warm, Dry Neurological : Alert & oriented x3, No focal deficit Objective Data Active Medications Acetaminophen (Acetaminophen 325 Mg Tablet) 650 mg PO Q6H PRN PRN Reason: Pain, Mild (Pain Scale 1-3) Last Admin: 06/30/23 20:36 Dose: 650 mg Documented By: FLORIN Bisacodyl (Bisacodyl 10 Mg Supp.Rect) 10 mg [place] DAILY PRN PRN Reason: Constipation Folic Acid (Folic Acid 1 Mg Tablet) 1 mg PO DAILY [facility] Last Admin: 06/30/23 08:53 Dose: 1 mg Documented By: ALEX Gabapentin (Gabapentin 100 Mg Capsule) 200 mg PO DAILY [facility] Last Admin: 06/30/23 08:53 Dose: 200 mg Documented By: ALEX Glucose (Glucose Gel 15 Gm Gel..Gram.) 15 gm PO Q15M PRN; Protocol PRN Reason: per Hypoglycemia Standing Ord. Heparin Sodium (Porcine) (Heparin Sodium,Porcine 5,000 Unit/Ml Vial) 5,000 unit INTRACATH MOWEFR@1645 [facility] Dextrose (D10) 250 mls @ 750 mls/hr IV Q15M PRN; Protocol PRN Reason: per Hypoglycemia Standing Ord. Insulin Human Lispro (Insulin Lispro 100 Unit/Ml 3 Ml Vial) 0 unit SUBCUT QIDACHS [facility]; Protocol Last Admin: 07/01/23 07:47 Dose: Not Given Documented By: HEATH Non-Admin Reason: No Insulin Coverage Lactulose (Lactulose 20 Gm/30 Ml Solution) 30 gm PO TID [facility] Last Admin: 06/30/23 20:33 Dose: Not Given Documented By: FLORIN Non-Admin Reason: Patient Refused Melatonin (Melatonin 3 Mg Tablet) 6 mg PO BEDTIME PRN PRN Reason: Insomnia Last Admin: 06/20/23 21:05 Dose: 6 mg Midodrine (Midodrine Hcl 10 Mg Tablet) 10 mg PO TID@0900,1300,1700 [facility] Last Admin: 07/01/23 11:07 Dose: 10 mg Documented By: HEATH Multivitamins/Vitamin C (Multivitamin Tablet) 1 tab PO DAILY [facility] Last Admin: 06/30/23 08:53 Dose: 1 tab Documented By: ALEX Naltrexone HCl (Naltrexone Hcl 50 Mg Tablet) 50 mg PO DAILY [facility] Last Admin: 06/30/23 08:53 Dose: 50 mg Documented By: ALEX Nystatin (Nystatin Powder 15 Gm Bottle) 1 appl TOPICAL DAILY [facility]; Protocol Last Admin: 07/01/23 10:16 Dose: 1 appl Documented By: HEATH Omeprazole (Omeprazole 40 Mg Capsule.Dr) 40 mg PO DAILY@0630 [facility] Last Admin: 07/01/23 06:13 Dose: 40 mg Documented By: FLORIN Ondansetron HCl (Ondansetron Hcl 4 Mg/2 Ml Vial) 4 mg IVPUSH Q8H PRN PRN Reason: Nausea and Vomiting Last Admin: 06/17/23 09:31 Dose: 4 mg Documented By: NORI Rifaximin (Rifaximin 550 Mg Tablet) 550 mg PO BID [facility] Last Admin: 06/30/23 20:34 Dose: 550 mg Documented By: LFORIN Sertraline HCl (Sertraline Hcl 50 Mg Tablet) 150 mg PO DAILY [facility] Sodium Bicarbonate (Sodium Bicarbonate 650 Mg Tablet) 650 mg PO TID [facility] Last Admin: 06/30/23 20:34 Dose: 650 mg Documented By: FLORIN Sodium Biphosphate/Sodium Phosphate (Sodium Phosphate,Norman-Dibasic 133 Ml Enema) 118 ml [place] DAILY PRN PRN Reason: Constipation Sodium Chloride (0.9 % Sodium Chloride Flush 3 Ml Syringe) 3 ml IVFLUSH QSHIFT [facility] Last Admin: 07/01/23 10:17 Dose: 3 ml Documented By: HEATH Thiamine HCl (Thiamine Hcl 100 Mg Tablet) 100 mg PO DAILY [facility] Last Admin: 06/30/23 08:53 Dose: 100 mg Documented By: ALEX Labs 06/28/23 09:05 06/30/23 10:43 Labs: Laboratory Results - last 24 hr 06/30/23 06/30/23 07/01/23 16:29 20:11 07:39 POC Glucose 201 H 161 H 145 H Assessment and Plan (1) Acute on chronic renal failure: Status: Acute (2) Catheter-associated urinary tract infection: Status: Acute (3) Acute hepatic encephalopathy: Status: Acute Plan 67-year-old gentleman with history of alcoholic cirrhosis, chronic indwelling urine catheter, orthostatic hypotension on midodrine, GERD, diabetes mellitus type 2 on insulin, recently discharged from [facility] on June 09 after management for decompensated hepatic cirrhosis with ascites and acute kidney injury and readmitted a week later with ESRD requiring HD 2/2 Acute on chronic renal failure likely 2/2 ATN, HRS, Pre renal azotemia, doubt cardiorenal Due to lack of improvement with IV fluid, IV albumin albumin, and worsening creatinine, temporary right IJ hemodialysis catheter was placed and patient underwent hemodialysis on 06/25 Patient healthcare proxy is his , informed her about initiation and continuation of hemodialysis. daughter is Maria Kline [phone]. Had 4 sessions of HD, next on Saturday Permacath placed and tolerated dialysis Nephrology following for outpatient spot Hepatic encephalopathy (grade II) triggered by acute infection (UTI), renal failure and possible GI bleeding. Confusion resolved. continue lactulose. hold for diarrhea Acute on chronic normocytic Anemia no acute GI bleed noted, iron studies not consistent with iron deficiency, recent endoscopy [facility] 05/04 showed no portal hypertensive gastropathy or varices . stable H&H Transfused 2 units of PRBCs s/p octreotide,continue PPI , Seen by GI ,no endoscopy recommended at this time. Chronic hypotension stable BP, continue midodrine, follow BP. Chronic Metabolic acidosis likely from renal failure, bicarb stable, on bicarb replacement . Marked ascites IR removed 5 L on 06/16, removed another 5L 06/27 monitor HFrEF/cardiomyopathy (30-35%). No acute decompensation, continue close clinical follow-up, chest x-ray showed no acute process. Catheter-associated urinary tract infection. Yesy glabarta, discuss with ID she does not recommend treatment will DC Diflucan Seizure likely secondary to hepatic encephalopathy. Seizure precautions, no recurrent seizures noted. IV Ativan 1 mg as needed Type 2 diabetes mellitus. on diabetic diet , stable blood sugars, not on Insulin sliding scale, hemoglobin A1c 5.3. Not on oral hypoglycemics or scheduled insulin at home. Mood disorder. Continue sertraline. DVT prophylaxis: Compression boots, hold heparin given anemia and concern for gib, Code status: Full need for inpaitent;management for acute on chronic kidney on HD pending Permacath placement and outpatient dialysis spot. Quality Stroke Does the patient have a stroke diagnosis?: No VTE Prior VTE?: No VTE Risk Level:: Medical - moderate - high VTE Device Contraindication: N/A - Device Ordered VTE Drug Contraindication: Treatment Not Indicated
[2023-07-01 15:25] LABS: Glucose, Whole Blood 148 mg/dL (60-115)
[2023-07-01] MEDS: Gabapentin 100 MG CAPSULE 200 MG PO (15:28)
[2023-07-01] MEDS: Thiamine HCL 100 MG TABLET PO (15:28)
[2023-07-01] MEDS: Folic Acid 1 MG TABLET PO (15:28)
[2023-07-01] MEDS: Multivitamin TABLET 1 TAB PO (15:28)
[2023-07-01] MEDS: Sertraline HCL 50 MG TABLET 150 MG PO (15:28)
[2023-07-01] MEDS: Sodium Bicarbonate 650 MG TABLET PO ×2 (15:28→20:38)
[2023-07-01] MEDS: rifAXIMin 550 MG TABLET PO ×2 (15:28→20:38)
[2023-07-01] MEDS: Naltrexone HCl 50 MG TABLET PO (15:28)
--- NOTE | 2023-07-01 15:34 | HO.WOUND ---
Wound Consult: Initial 67yr old? Male admitted to [facility] on 06/15 - See progress notes and H&P for detailed history.? Wound consult placed for Left Shoulder Wound.? Patient agreeable to assessment and photo documentation.? Left Shoulder Etiology: ?Abrasion Measurements: see charting for detailed measurements Wound Bed: partial thickness tissue loss = pink red tissue remains blanchable - areas of hyperpigmentation noted Drainage / Odor: None Edges: ? Irregular Kiana wound: Intact No Induration, Fluctuance or Warmth noted Pain: patient reports baseline pain for years due to history of left arm fracture Goals of Treatment: ? Foam dressing to protect from friction and allow for moist wound healing Recommendations: 1. Turn and Reposition every 2 hours and as needed for patient comfort.? Use pillows or wedges to support off loading positions. 2. Off Load all bony prominences with use of pillows and heel boots if needed.? Apply Preventative foams where needed. ? 3. Monitor for incontinence and moisture control, use barrier creams when needed for prevention and treatment. 4. Provide adequate and supplemental nutrition.? 5. Continue low air loss mattress. 6. When applicable maintain blood glucose levels per Providers order. 7. Left Shoulder - Cleanse with NS moist gauze, pat dry. Cover with foam dressing peel back and assess Q shift and Change ever 3 days. Re-consult wound care Nurse for wound deterioration or wound changes.
[2023-07-01 20:23] LABS: Glucose, Whole Blood 227 mg/dL (60-115)
[2023-07-01] MEDS: Acetaminophen 325 MG TABLET 650 MG PO (20:37)
[2023-07-01] MEDS: Insulin Lispro 100 UNIT/ML 3 ML VIAL SUBCUT (20:38)
[2023-07-01] MEDS: Melatonin 3 MG TABLET 6 MG PO (20:38)
[2023-07-02 07:24] VITALS: BP 105/56; PULSE 65; RESP 16; TEMP 36.4; O2SAT 99
[2023-07-02 07:32] LABS: Glucose, Whole Blood 144 mg/dL (60-115)
[2023-07-02] MEDS: Folic Acid 1 MG TABLET PO (09:24)
[2023-07-02] MEDS: Sertraline HCL 50 MG TABLET 150 MG PO (09:24)
[2023-07-02] MEDS: Sodium Bicarbonate 650 MG TABLET PO ×3 (09:24→22:48)
[2023-07-02] MEDS: Midodrine HCl 10 MG TABLET PO ×3 (09:24→16:37)
[2023-07-02] MEDS: Thiamine HCL 100 MG TABLET PO (09:24)
[2023-07-02] MEDS: rifAXIMin 550 MG TABLET PO ×2 (09:24→22:48)
[2023-07-02] MEDS: Naltrexone HCl 50 MG TABLET PO (09:24)
[2023-07-02] MEDS: Gabapentin 100 MG CAPSULE 200 MG PO (09:24)
[2023-07-02] MEDS: 0.9 % Sodium Chloride Flush 3 ML SYRINGE IVFLUSH ×3 (09:24→22:49)
[2023-07-02] MEDS: Multivitamin TABLET 1 TAB PO (09:24)
[2023-07-02] MEDS: Lactulose 20 GM/30 ML SOLUTION 30 GM PO ×2 (09:28→14:44)
[2023-07-02] MEDS: Nystatin Powder 15 GM BOTTLE 1 APPL TOPICAL (09:28)
--- NOTE | 2023-07-02 10:16 | PM.PNNEP ---
Subjective Subjective Date of Service: 07/02/23 Interval history: Events noted Feels better today Physical Exam Vital Signs: Vital Signs: Last Vital Signs Temp 97.5 F 07/02/23 07:24 Pulse 65 07/02/23 07:24 Resp 16 07/02/23 07:24 BP 105/56 L 07/02/23 07:24 Pulse Ox 99 07/02/23 07:24 O2 Del Method Room Air 07/02/23 07:24 O2 Flow Rate 2 06/21/23 07:39 Oxygen Flow Rate 2 06/15/23 18:39 BMI result Body Mass Index 27.8 Const: General: comfortable and no acute distress HEENT: Head: Yes normocephalic Mouth: Normal oral and palatal mucosa present Eyes: EOM: EOMs intact bilaterally Neck: Neck: Yes supple Resp: Auscultation: clear to auscultation bilaterally Cardio: Jugular venous distension: no JVD Rate: regular rate GI: Palpation (GI): Soft to palpation Auscultation: normal bowel sounds : General: Yes no CVA tenderness Back/Spine/Pelvis: Back: no CVA tenderness Skin: General skin exam: no rashes or lesions noted Neuro: General: moves all extremities Objective Data Labs 06/28/23 09:05 06/30/23 10:43 Labs: Laboratory Results - last 24 hr 07/01/23 07/01/23 07/02/23 15:21 20:18 07:16 POC Glucose 148 H 227 H 144 H Microbiology Microbiology Results: Microbiology 06/17/23 11:30 Paracentesis Fluid Gram Stain - Final 06/17/23 11:30 Paracentesis Fluid Anaerobic Culture - Final NO GROWTH AFTER 5 DAYS 06/17/23 11:30 Paracentesis Fluid Body Fluid Culture - Final No growth after 2 days 06/16/23 00:02 Blood - Venous Blood Culture - Final No growth after 5 days. 06/16/23 00:02 Blood - Venous Blood Culture - Final No growth after 5 days. 06/15/23 21:41 Urine Catheterized - Straight Catheter Urine Culture - Final Yesy glabrata Procedures Date of Service Date of Service: 07/02/23 Assessment & Plan Assessment and plan (1) PENNY (acute kidney injury): Status: Inactive (2) Ascites: Status: Inactive (3) Chronic indwelling Gordon catheter: Status: Inactive (4) Acute on chronic anemia: Status: Resolved Plan 67 yr old man with DOUGIE superimpose don CKD 3 DDX for PENNY : Hypoperfusion from volume depletion /low BP Possible tubular injury/ATN No obstruction No improvement in renal function C3/C4 are low Suggest HD support 3 x a week Avoid nephrotoxins Paracenthesis p.r.n. Watch urine out put Watch renal function Out pt HD arranged at [facility] TTS - call [phone] for more information Time Spent With Patient Time: Total time managing care of this patient today ____ minutes. Progress Note: Quality Stroke Does the patient have a stroke diagnosis?: No
[2023-07-02 11:29] VITALS: BP 106/59; PULSE 65; RESP 20; TEMP 36.7; O2SAT 94
[2023-07-02 11:38] LABS: Glucose, Whole Blood 173 mg/dL (60-115)
[2023-07-02] MEDS: Insulin Lispro 100 UNIT/ML 3 ML VIAL SUBCUT ×2 (11:56→22:48)
--- NOTE | 2023-07-02 13:42 | P.PNIM_ITS ---
Subjective Subjective Date of Service: 07/02/23 Interval History: Seen and evaluated this morning alert and interactive while in dialysis session Permacath in place abdomen mildly distended, less after dialysis session no overnight events Review of Systems Review of Systems: Yes all other systems are reviewed and are negative Physical Exam 2 Vital Signs: Vital Signs: Last Vital Signs Temp 98.1 F 07/02/23 11:29 Pulse 65 07/02/23 11:29 Resp 20 07/02/23 11:29 BP 106/59 L 07/02/23 11:29 Pulse Ox 94 07/02/23 11:29 O2 Del Method Room Air 07/02/23 11:29 O2 Flow Rate 2 06/21/23 07:39 Oxygen Flow Rate 2 06/15/23 18:39 BMI result Body Mass Index 27.8 Const: Other: Constitutional : Awake, interactive, not in distress Neck : Normal inspection, Supple Cardiovascular : RRR, no JVP, no lower extremity edema, PErma-cath in place Respiratory : good bilateral air entry, no crackles, wheezes or rhonchi Gastrointestinal: soft, lax, Normal bowel sounds, abdomen distended with mild- moderate ascites Skin : Warm, Dry Neurological : Alert & oriented x3, No focal deficit Objective Data Active Medications Acetaminophen (Acetaminophen 325 Mg Tablet) 650 mg PO Q6H PRN PRN Reason: Pain, Mild (Pain Scale 1-3) Last Admin: 07/01/23 20:37 Dose: 650 mg Documented By: FLORIN Bisacodyl (Bisacodyl 10 Mg Supp.Rect) 10 mg [place] DAILY PRN PRN Reason: Constipation Folic Acid (Folic Acid 1 Mg Tablet) 1 mg PO DAILY [facility] Last Admin: 07/02/23 09:24 Dose: 1 mg Documented By: HEATH Gabapentin (Gabapentin 100 Mg Capsule) 200 mg PO DAILY [facility] Last Admin: 07/02/23 09:24 Dose: 200 mg Documented By: HEATH Glucose (Glucose Gel 15 Gm Gel..Gram.) 15 gm PO Q15M PRN; Protocol PRN Reason: per Hypoglycemia Standing Ord. Heparin Sodium (Porcine) (Heparin Sodium,Porcine 5,000 Unit/Ml Vial) 5,000 unit INTRACATH MOWEFR@1645 [facility] Last Admin: 07/01/23 15:35 Dose: Not Given Documented By: HEATH Non-Admin Reason: in HD Dextrose (D10) 250 mls @ 750 mls/hr IV Q15M PRN; Protocol PRN Reason: per Hypoglycemia Standing Ord. Insulin Human Lispro (Insulin Lispro 100 Unit/Ml 3 Ml Vial) 0 unit SUBCUT QIDACHS [facility]; Protocol Last Admin: 07/02/23 11:56 Dose: 2 unit Documented By: HEATH Lactulose (Lactulose 20 Gm/30 Ml Solution) 30 gm PO TID [facility] Last Admin: 07/02/23 09:28 Dose: 30 gm Documented By: HEATH Melatonin (Melatonin 3 Mg Tablet) 6 mg PO BEDTIME PRN PRN Reason: Insomnia Last Admin: 07/01/23 20:38 Dose: 6 mg Documented By: FLORIN Midodrine (Midodrine Hcl 10 Mg Tablet) 10 mg PO TID@0900,1300,1700 [facility] Last Admin: 07/02/23 11:56 Dose: 10 mg Documented By: HEATH Multivitamins/Vitamin C (Multivitamin Tablet) 1 tab PO DAILY [facility] Last Admin: 07/02/23 09:24 Dose: 1 tab Documented By: HEATH Naltrexone HCl (Naltrexone Hcl 50 Mg Tablet) 50 mg PO DAILY [facility] Last Admin: 07/02/23 09:24 Dose: 50 mg Documented By: HEATH Nystatin (Nystatin Powder 15 Gm Bottle) 1 appl TOPICAL DAILY [facility]; Protocol Last Admin: 07/02/23 09:28 Dose: 1 appl Documented By: HEATH Omeprazole (Omeprazole 40 Mg Capsule.) 40 mg PO DAILY@0630 [facility] Last Admin: 07/02/23 05:51 Dose: Not Given Documented By: FLORIN Non-Admin Reason: Patient Refused Ondansetron HCl (Ondansetron Hcl 4 Mg/2 Ml Vial) 4 mg IVPUSH Q8H PRN PRN Reason: Nausea and Vomiting Last Admin: 06/17/23 09:31 Dose: 4 mg Documented By: NORI Rifaximin (Rifaximin 550 Mg Tablet) 550 mg PO BID [facility] Last Admin: 07/02/23 09:24 Dose: 550 mg Documented By: HEATH Sertraline HCl (Sertraline Hcl 50 Mg Tablet) 150 mg PO DAILY [facility] Last Admin: 07/02/23 09:24 Dose: 150 mg Documented By: HEATH Sodium Bicarbonate (Sodium Bicarbonate 650 Mg Tablet) 650 mg PO TID [facility] Last Admin: 07/02/23 09:24 Dose: 650 mg Documented By: HEATH Sodium Biphosphate/Sodium Phosphate (Sodium Phosphate,Tompkins-Dibasic 133 Ml Enema) 118 ml [place] DAILY PRN PRN Reason: Constipation Sodium Chloride (0.9 % Sodium Chloride Flush 3 Ml Syringe) 3 ml IVFLUSH QSHIFT [facility] Last Admin: 07/02/23 09:24 Dose: 3 ml Documented By: HEATH Thiamine HCl (Thiamine Hcl 100 Mg Tablet) 100 mg PO DAILY [facility] Last Admin: 07/02/23 09:24 Dose: 100 mg Documented By: HEATH Labs 06/28/23 09:05 06/30/23 10:43 Labs: Laboratory Results - last 24 hr 07/01/23 07/01/23 07/02/23 15:21 20:18 07:16 POC Glucose 148 H 227 H 144 H 07/02/23 11:28 POC Glucose 173 H Assessment and Plan (1) Acute on chronic renal failure: Status: Acute (2) Catheter-associated urinary tract infection: Status: Acute (3) Acute hepatic encephalopathy: Status: Acute (4) Chronic systolic (congestive) heart failure: Status: Acute Plan 67-year-old gentleman with history of alcoholic cirrhosis, chronic indwelling urine catheter, orthostatic hypotension on midodrine, GERD, diabetes mellitus type 2 on insulin, recently discharged from [facility] on June 09 after management for decompensated hepatic cirrhosis with ascites and acute kidney injury and readmitted a week later with ESRD requiring HD 2/2 Acute on chronic renal failure likely 2/2 ATN, HRS, Pre renal azotemia, doubt cardiorenal Due to lack of improvement with IV fluid, IV albumin albumin, and worsening creatinine, temporary right IJ hemodialysis catheter was placed and patient underwent hemodialysis on 06/25 Patient healthcare proxy is his , informed her about initiation and continuation of hemodialysis. daughter is Maria Kline [phone]. Had 4 sessions of HD, next on Saturday Permacath placed and tolerated dialysis Nephrology following for outpatient spot Hepatic encephalopathy (grade II) triggered by acute infection (UTI), renal failure and possible GI bleeding. Confusion resolved. continue lactulose. hold for diarrhea Acute on chronic normocytic Anemia no acute GI bleed noted, iron studies not consistent with iron deficiency, recent endoscopy [facility] 05/04 showed no portal hypertensive gastropathy or varices . stable H&H Transfused 2 units of PRBCs s/p octreotide,continue PPI , Seen by GI ,no endoscopy recommended at this time. Chronic hypotension stable BP, continue midodrine, follow BP. Chronic Metabolic acidosis likely from renal failure, bicarb stable, on bicarb replacement . Marked ascites IR removed 5 L on 06/16, removed another 5L 06/27 Better today after dialysis Discussed with Nephro, they will target fluid removal in HD to avoid recurrent PAracentesis HFrEF/cardiomyopathy (30-35%). No acute decompensation, continue close clinical follow-up, chest x-ray showed no acute process. Catheter-associated urinary tract infection. Yesy glabarta, discuss with ID she does not recommend treatment will DC Diflucan Seizure likely secondary to hepatic encephalopathy. Seizure precautions, no recurrent seizures noted. IV Ativan 1 mg as needed Type 2 diabetes mellitus. on diabetic diet , stable blood sugars, not on Insulin sliding scale, hemoglobin A1c 5.3. Not on oral hypoglycemics or scheduled insulin at home. Mood disorder. Continue sertraline. DVT prophylaxis: Compression boots, hold heparin given anemia and concern for gib, Code status: Full need for inpaitent;management for acute on chronic kidney on HD pending outpatient dialysis spot. Quality Stroke Does the patient have a stroke diagnosis?: No VTE Prior VTE?: No VTE Risk Level:: Medical - moderate - high VTE Device Contraindication: N/A - Device Ordered VTE Drug Contraindication: Treatment Not Indicated
--- NOTE | 2023-07-02 14:01 | MHC.CM.PN ---
[facility] declined to offer a bed. [facility] does not have a bed available. They may have a bed later this week. DBV has been notified that he may return and need private pay transport to HD. A new referral has been sent to [facility] [facility]. Per Nephro community HD center will be [facility] @ [facility] with transport from SNF/[facility].
[2023-07-02 15:38] VITALS: BP 116/55; PULSE 66; RESP 19; TEMP 36.8; O2SAT 94
[2023-07-02 16:01] LABS: Glucose, Whole Blood 147 mg/dL (60-115)
[2023-07-02 19:24] VITALS: BP 122/62; PULSE 77; RESP 16; TEMP 37.5; O2SAT 99
[2023-07-02 20:20] LABS: Glucose, Whole Blood 207 mg/dL (60-115)
[2023-07-02] MEDS: Melatonin 3 MG TABLET 6 MG PO (22:47)
[2023-07-02] MEDS: Acetaminophen 325 MG TABLET 650 MG PO (22:47)
[2023-07-02 23:49] VITALS: BP 112/57; PULSE 79; RESP 18; TEMP 37.1; O2SAT 97
[2023-07-03 03:43] VITALS: BP 108/56; PULSE 72; RESP 18; TEMP 36.6; O2SAT 92
[2023-07-03 07:55] LABS: Glucose, Whole Blood 128 mg/dL (60-115)
--- NOTE | 2023-07-03 09:43 | MHC.CM.PN ---
Addendum entered by Anju Corrigan 07/03/23 15:48: Spoke with Patients re DC plan. She plans to speak with [facility] Worker and Hospitalist via phone today. Once she knows more we can finalize the DP. We will follow up tomorrow with [facility] regarding the patient's return. Original Note: DBV has not responded via [facility]. A call was placed to the SNF. A VM was left for HAYDEE Morillo, Admissions [facility]. Haydee has been notified that the patient has not received a bed offer from either SNF with on site HD. She has been instructed that the patient will need to return to [facility] until a bed is available at [facility]. A return call has been requested. Contact info left on .
[2023-07-03] MEDS: 0.9 % Sodium Chloride Flush 3 ML SYRINGE IVFLUSH ×2 (10:26→18:22)
[2023-07-03] MEDS: Gabapentin 100 MG CAPSULE 200 MG PO (10:28)
[2023-07-03 10:39] VITALS: BP 113/58; PULSE 76; RESP 18; TEMP 36.1; O2SAT 97
[2023-07-03] MEDS: Nystatin Powder 15 GM BOTTLE 1 APPL TOPICAL (10:50)
[2023-07-03] MEDS: Sertraline HCL 50 MG TABLET 150 MG PO (11:08)
[2023-07-03] MEDS: Folic Acid 1 MG TABLET PO (11:08)
[2023-07-03] MEDS: Sodium Bicarbonate 650 MG TABLET PO ×3 (11:09→21:58)
[2023-07-03] MEDS: Multivitamin TABLET 1 TAB PO (11:09)
[2023-07-03] MEDS: Thiamine HCL 100 MG TABLET PO (11:09)
[2023-07-03] MEDS: Naltrexone HCl 50 MG TABLET PO (11:09)
[2023-07-03] MEDS: rifAXIMin 550 MG TABLET PO ×2 (11:09→21:58)
[2023-07-03] MEDS: Midodrine HCl 10 MG TABLET PO ×3 (11:09→18:22)
[2023-07-03 12:04] LABS: Glucose, Whole Blood 169 mg/dL (60-115)
[2023-07-03] MEDS: Insulin Lispro 100 UNIT/ML 3 ML VIAL SUBCUT ×2 (12:43→21:58)
[2023-07-03 15:42] VITALS: BP 93/51; PULSE 74; RESP 18; TEMP 36.6; O2SAT 98
--- NOTE | 2023-07-03 15:48 | W.PM.DNNEP ---
Subjective Subjective This patient was seen during dialysis. Interval history: Events noted Physical Exam Vital Signs: Vital Signs: Last Vital Signs Temp 97.8 F 07/03/23 15:42 Pulse 74 07/03/23 15:42 Resp 18 07/03/23 15:42 BP 93/51 L 07/03/23 15:42 Pulse Ox 98 07/03/23 15:42 O2 Del Method Room Air 07/03/23 15:42 O2 Flow Rate 2 06/21/23 07:39 Oxygen Flow Rate 2 06/15/23 18:39 BMI result Body Mass Index 27.8 Const: General: comfortable and no acute distress HEENT: Head: Yes normocephalic Mouth: Normal oral and palatal mucosa present Eyes: EOM: EOMs intact bilaterally Neck: Neck: Yes supple Resp: Auscultation: clear to auscultation bilaterally Cardio: Jugular venous distension: no JVD Rate: regular rate GI: Palpation (GI): Soft to palpation Auscultation: normal bowel sounds : General: Yes no CVA tenderness Back/Spine/Pelvis: Back: no CVA tenderness Skin: General skin exam: no rashes or lesions noted Neuro: General: moves all extremities Assessment & Plan Assessment and plan (1) Acute on chronic renal failure: Status: Acute (2) Catheter-associated urinary tract infection: Status: Acute (3) Acute hepatic encephalopathy: Status: Acute (4) Chronic systolic (congestive) heart failure: Status: Acute (5) PENNY (acute kidney injury): Status: Inactive (6) Ascites: Status: Inactive (7) Chronic indwelling Gordon catheter: Status: Inactive (8) Acute on chronic anemia: Status: Resolved Plan 67 yr old man with DOUGIE superimpose don CKD 3 DDX for PENNY : Hypoperfusion from volume depletion /low BP Possible tubular injury/ATN No obstruction No improvement in renal function C3/C4 are low Suggest HD support 3 x a week Avoid nephrotoxins Paracenthesis p.r.n. Watch urine out put Watch renal function Out pt HD arranged Time Spent With Patient Time: Total time managing care of this patient today ____ minutes. Procedures Date of Service Date of Service: 07/04/23
[2023-07-03 16:12] LABS: Glucose, Whole Blood 187 mg/dL (60-115)
--- NOTE | 2023-07-03 16:16 | HO.PM.IMPN ---
Subjective Subjective Date of Service: 07/03/23 Interval History: Seen and evaluated this morning alert and interactive while in dialysis session abdomen moderately distended no overnight events Physical Exam Vital Signs: Vital Signs: Last Vital Signs Temp 97.8 F 07/03/23 15:42 Pulse 74 07/03/23 15:42 Resp 18 07/03/23 15:42 BP 93/51 L 07/03/23 15:42 Pulse Ox 98 07/03/23 15:42 O2 Del Method Room Air 07/03/23 15:42 O2 Flow Rate 2 06/21/23 07:39 Oxygen Flow Rate 2 06/15/23 18:39 BMI result Body Mass Index 27.8 Const: Other: Constitutional : Awake, interactive, not in distress Neck : Normal inspection, Supple Cardiovascular : RRR, no JVP, no lower extremity edema, PErma-cath in place Respiratory : good bilateral air entry, no crackles, wheezes or rhonchi Gastrointestinal: soft, lax, Normal bowel sounds, abdomen distended with mild-moderate ascites Skin : Warm, Dry Neurological : Alert & oriented x3, No focal deficit Objective Data Active Medications Acetaminophen (Acetaminophen 325 Mg Tablet) 650 mg PO Q6H PRN PRN Reason: Pain, Mild (Pain Scale 1-3) Last Admin: 07/02/23 22:47 Dose: 650 mg Documented By: FLORIN Bisacodyl (Bisacodyl 10 Mg Supp.Rect) 10 mg [place] DAILY PRN PRN Reason: Constipation Folic Acid (Folic Acid 1 Mg Tablet) 1 mg PO DAILY [facility] Last Admin: 07/03/23 11:08 Dose: 1 mg Documented By: TERESA Gabapentin (Gabapentin 100 Mg Capsule) 200 mg PO DAILY [facility] Last Admin: 07/03/23 10:28 Dose: 200 mg Documented By: TERESA Glucose (Glucose Gel 15 Gm Gel..Gram.) 15 gm PO Q15M PRN; Protocol PRN Reason: per Hypoglycemia Standing Ord. Heparin Sodium (Porcine) (Heparin Sodium,Porcine 5,000 Unit/Ml Vial) 5,000 unit INTRACATH MOWEFR@1645 [facility] Last Admin: 07/01/23 15:35 Dose: Not Given Documented By: HEATH Non-Admin Reason: in HD Dextrose (D10) 250 mls @ 750 mls/hr IV Q15M PRN; Protocol PRN Reason: per Hypoglycemia Standing Ord. Insulin Human Lispro (Insulin Lispro 100 Unit/Ml 3 Ml Vial) 0 unit SUBCUT QIDACHS [facility]; Protocol Last Admin: 07/03/23 12:43 Dose: 2 unit Documented By: TERESA Lactulose (Lactulose 20 Gm/30 Ml Solution) 30 gm PO TID [facility] Last Admin: 07/03/23 10:30 Dose: Not Given Documented By: TERESA Non-Admin Reason: Patient Refused Melatonin (Melatonin 3 Mg Tablet) 6 mg PO BEDTIME PRN PRN Reason: Insomnia Last Admin: 07/02/23 22:47 Dose: 6 mg Documented By: FLORIN Midodrine (Midodrine Hcl 10 Mg Tablet) 10 mg PO TID@0900,1300,1700 [facility] Last Admin: 07/03/23 14:59 Dose: 10 mg Documented By: TERESA Multivitamins/Vitamin C (Multivitamin Tablet) 1 tab PO DAILY [facility] Last Admin: 07/03/23 11:09 Dose: 1 tab Documented By: TERESA Naltrexone HCl (Naltrexone Hcl 50 Mg Tablet) 50 mg PO DAILY [facility] Last Admin: 07/03/23 11:09 Dose: 50 mg Documented By: TERESA Nystatin (Nystatin Powder 15 Gm Bottle) 1 appl TOPICAL DAILY [facility]; Protocol Last Admin: 07/03/23 10:50 Dose: 1 appl Documented By: TERESA Omeprazole (Omeprazole 40 Mg Capsule.Dr) 40 mg PO DAILY@0630 [facility] Last Admin: 07/03/23 07:52 Dose: Not Given Documented By: FLORIN Non-Admin Reason: Patient Refused Ondansetron HCl (Ondansetron Hcl 4 Mg/2 Ml Vial) 4 mg IVPUSH Q8H PRN PRN Reason: Nausea and Vomiting Last Admin: 06/17/23 09:31 Dose: 4 mg Documented By: NORI Rifaximin (Rifaximin 550 Mg Tablet) 550 mg PO BID [facility] Last Admin: 07/03/23 11:09 Dose: 550 mg Documented By: TERESA Sertraline HCl (Sertraline Hcl 50 Mg Tablet) 150 mg PO DAILY [facility] Last Admin: 07/03/23 11:08 Dose: 150 mg Documented By: TERESA Sodium Bicarbonate (Sodium Bicarbonate 650 Mg Tablet) 650 mg PO TID [facility] Last Admin: 07/03/23 14:59 Dose: 650 mg Documented By: TERESA Sodium Biphosphate/Sodium Phosphate (Sodium Phosphate,Kemper-Dibasic 133 Ml Enema) 118 ml [place] DAILY PRN PRN Reason: Constipation Sodium Chloride (0.9 % Sodium Chloride Flush 3 Ml Syringe) 3 ml IVFLUSH QSHIFT [facility] Last Admin: 07/03/23 10:26 Dose: 3 ml Documented By: TERESA Thiamine HCl (Thiamine Hcl 100 Mg Tablet) 100 mg PO DAILY [facility] Last Admin: 07/03/23 11:09 Dose: 100 mg Documented By: TERESA Labs 06/28/23 09:05 06/30/23 10:43 Labs: Laboratory Results - last 24 hr 07/02/23 07/03/23 07/03/23 20:15 07:36 11:47 POC Glucose 207 H 128 H 169 H 07/03/23 15:54 POC Glucose 187 H Assessment and Plan (1) Acute on chronic renal failure: Status: Acute (2) Acute hepatic encephalopathy: Status: Acute Plan 67-year-old gentleman with history of alcoholic cirrhosis, chronic indwelling urine catheter, orthostatic hypotension on midodrine, GERD, diabetes mellitus type 2 on insulin, recently discharged from [facility] on June 09 after management for decompensated hepatic cirrhosis with ascites and acute kidney injury and readmitted a week later with ESRD requiring HD 2/2 Acute on chronic renal failure likely 2/2 ATN, HRS, Pre renal azotemia, doubt cardiorenal Due to lack of improvement with IV fluid, IV albumin albumin, and worsening creatinine, temporary right IJ hemodialysis catheter was placed and patient underwent hemodialysis on 06/25 Low C3,C4 Patient healthcare proxy is his , informed her about initiation and continuation of hemodialysis. daughter is Maria Kline [phone]. Had 5 sessions of HD, next on Saturday Permacath placed and tolerated dialysis Nephrology following for outpatient spot Marked ascites IR removed 5 L on 06/16, removed another 5L 06/27 Better today after dialysis Discussed with Nephro, Do Paracentesis on the days off dialysis. He might need recurrent Para as outpatient Hepatic encephalopathy (grade II) triggered by acute infection (UTI), renal failure and possible GI bleeding. Confusion resolved. reporting diarrhea decrease lactulose to BID. hold for diarrhea Acute on chronic normocytic Anemia no acute GI bleed noted, iron studies not consistent with iron deficiency, recent endoscopy [facility] 05/04 showed no portal hypertensive gastropathy or varices . stable H&H Transfused 2 units of PRBCs s/p octreotide,continue PPI Seen by GI ,no endoscopy recommended at this time. follow H&H Chronic hypotension stable BP, continue midodrine tid (give it prior to dialysis). Chronic Metabolic acidosis likely from renal failure, bicarb stable, on bicarb replacement . HFrEF/cardiomyopathy (30-35%). No acute decompensation, continue close clinical follow-up, chest x-ray showed no acute process. Catheter-associated urinary tract infection. Yesy glabarta, discuss with ID she does not recommend treatment will DC Diflucan Seizure likely secondary to hepatic encephalopathy. Seizure precautions, no recurrent seizures noted. IV Ativan 1 mg as needed Type 2 diabetes mellitus. on diabetic diet , stable blood sugars, not on Insulin sliding scale, hemoglobin A1c 5.3. Not on oral hypoglycemics or scheduled insulin at home. Mood disorder. Continue sertraline. DVT prophylaxis: Compression boots, hold heparin given anemia and concern for gib, Code status: Full need for inpaitent;management for acute on chronic kidney on HD pending outpatient dialysis spot. Quality Stroke Does the patient have a stroke diagnosis?: No VTE Prior VTE?: No VTE Risk Level:: Medical - moderate - high VTE Device Contraindication: N/A - Device Ordered VTE Drug Contraindication: Treatment Not Indicated
[2023-07-03 20:00] VITALS: BP 115/59; PULSE 70; RESP 20; TEMP 36.6; O2SAT 97
--- NOTE | 2023-07-03 20:41 | PC.NURSE ---
Was notified at 2027 that pt had a 5 beat run of Vtach. Notified the MD. pt is calm, asymptomatic and on an Amiodarone drip. Will monitor closely for any changes.
[2023-07-03 20:50] LABS: Glucose, Whole Blood 188 mg/dL (60-115)
[2023-07-03] MEDS: Lactulose 20 GM/30 ML SOLUTION 30 GM PO (21:58)
[2023-07-03 23:17] VITALS: BP 112/57; PULSE 70; RESP 18; TEMP 37.1; O2SAT 98
[2023-07-04] MEDS: 0.9 % Sodium Chloride Flush 3 ML SYRINGE IVFLUSH ×3 (01:34→16:35)
[2023-07-04 03:45] VITALS: BP 113/56; PULSE 70; RESP 16; TEMP 36.8; O2SAT 96
[2023-07-04] MEDS: Omeprazole 40 MG CAPSULE.DR PO (05:17)
[2023-07-04 08:00] VITALS: BP 102/53; PULSE 74; RESP 18; TEMP 36.3; O2SAT 100
[2023-07-04 08:09] LABS: Glucose, Whole Blood 195 mg/dL (60-115)
[2023-07-04] MEDS: Insulin Lispro 100 UNIT/ML 3 ML VIAL SUBCUT ×3 (08:31→21:08)
[2023-07-04] MEDS: Multivitamin TABLET 1 TAB PO (08:32)
[2023-07-04] MEDS: rifAXIMin 550 MG TABLET PO ×2 (08:32→21:08)
[2023-07-04] MEDS: Naltrexone HCl 50 MG TABLET PO (08:32)
[2023-07-04] MEDS: Sertraline HCL 50 MG TABLET 150 MG PO (08:32)
[2023-07-04] MEDS: Lactulose 20 GM/30 ML SOLUTION 30 GM PO ×2 (08:32→21:08)
[2023-07-04] MEDS: Sodium Bicarbonate 650 MG TABLET PO ×3 (08:32→21:08)
[2023-07-04] MEDS: Thiamine HCL 100 MG TABLET PO (08:32)
[2023-07-04] MEDS: Midodrine HCl 10 MG TABLET PO ×2 (08:32→16:35)
[2023-07-04] MEDS: Folic Acid 1 MG TABLET PO (08:32)
[2023-07-04] MEDS: Gabapentin 100 MG CAPSULE 200 MG PO (08:32)
[2023-07-04 11:40] VITALS: BP 109/50; PULSE 70; RESP 18; TEMP 36.1; O2SAT 100
[2023-07-04 11:47] LABS: Glucose, Whole Blood 175 mg/dL (60-115)
[2023-07-04] MEDS: Nystatin Powder 15 GM BOTTLE 1 APPL TOPICAL (11:55)
--- NOTE | 2023-07-04 12:57 | HO.PM.IMPN ---
Subjective Subjective Date of Service: 07/04/23 Interval History: abd distended otherwise no complaints Review of Systems Review of Systems: Yes all other systems are reviewed and are negative Physical Exam Vital Signs: Vital Signs: Last Vital Signs Temp 97.0 F 07/04/23 11:40 Pulse 70 07/04/23 11:40 Resp 18 07/04/23 11:40 BP 109/50 L 07/04/23 11:40 Pulse Ox 100 07/04/23 11:40 O2 Del Method Room Air 07/04/23 11:40 O2 Flow Rate 2 07/03/23 20:00 Oxygen Flow Rate 2 06/15/23 18:39 BMI result Body Mass Index 27.8 Gen: in no acute distress HEENT: sclera anicteric, moist mucus membranes Neck: supple, R subclavian tunneled HD catheter Lungs: clear to auscultation bilaterally Heart: regular rate and rhythm, no murmurs Abd: distended with fluid wave Ext: no edema Skin: warm/well-perfused Neuro: alert and oriented x3, no focal findings, no asterixis Psych: appropriate affect Objective Data Active Medications Acetaminophen (Acetaminophen 325 Mg Tablet) 650 mg PO Q6H PRN PRN Reason: Pain, Mild (Pain Scale 1-3) Last Admin: 07/02/23 22:47 Dose: 650 mg Documented By: FLORIN Bisacodyl (Bisacodyl 10 Mg Supp.Rect) 10 mg MS DAILY PRN PRN Reason: Constipation Folic Acid (Folic Acid 1 Mg Tablet) 1 mg PO DAILY [facility] Last Admin: 07/04/23 08:32 Dose: 1 mg Documented By: TERESA Gabapentin (Gabapentin 100 Mg Capsule) 200 mg PO DAILY [facility] Last Admin: 07/04/23 08:32 Dose: 200 mg Documented By: TERESA Glucose (Glucose Gel 15 Gm Gel..Gram.) 15 gm PO Q15M PRN; Protocol PRN Reason: per Hypoglycemia Standing Ord. Heparin Sodium (Porcine) (Heparin Sodium,Porcine 5,000 Unit/Ml Vial) 5,000 unit INTRACATH MOWEFR@1645 [facility] Last Admin: 07/03/23 17:10 Dose: Not Given Documented By: TERESA Non-Admin Reason: Given in Dialysis Dextrose (D10) 250 mls @ 750 mls/hr IV Q15M PRN; Protocol PRN Reason: per Hypoglycemia Standing Ord. Insulin Human Lispro (Insulin Lispro 100 Unit/Ml 3 Ml Vial) 0 unit SUBCUT QIDACHS [facility]; Protocol Last Admin: 07/04/23 11:53 Dose: 2 unit Documented By: TERESA Lactulose (Lactulose 20 Gm/30 Ml Solution) 30 gm PO BID [facility] Last Admin: 07/04/23 08:32 Dose: 30 gm Documented By: TERESA Melatonin (Melatonin 3 Mg Tablet) 6 mg PO BEDTIME PRN PRN Reason: Insomnia Last Admin: 07/02/23 22:47 Dose: 6 mg Documented By: FLORIN Midodrine (Midodrine Hcl 10 Mg Tablet) 10 mg PO TID@0900,1300,1700 [facility] Last Admin: 07/04/23 08:32 Dose: 10 mg Documented By: TERESA Multivitamins/Vitamin C (Multivitamin Tablet) 1 tab PO DAILY [facility] Last Admin: 07/04/23 08:32 Dose: 1 tab Documented By: TERESA Naltrexone HCl (Naltrexone Hcl 50 Mg Tablet) 50 mg PO DAILY [facility] Last Admin: 07/04/23 08:32 Dose: 50 mg Documented By: TERESA Nystatin (Nystatin Powder 15 Gm Bottle) 1 appl TOPICAL DAILY [facility]; Protocol Last Admin: 07/04/23 11:55 Dose: 1 appl Documented By: TERESA Omeprazole (Omeprazole 40 Mg Capsule.Dr) 40 mg PO DAILY@0630 [facility] Last Admin: 07/04/23 05:17 Dose: 40 mg Documented By: ELIAN Ondansetron HCl (Ondansetron Hcl 4 Mg/2 Ml Vial) 4 mg IVPUSH Q8H PRN PRN Reason: Nausea and Vomiting Last Admin: 06/17/23 09:31 Dose: 4 mg Documented By: NORI Rifaximin (Rifaximin 550 Mg Tablet) 550 mg PO BID [facility] Last Admin: 07/04/23 08:32 Dose: 550 mg Documented By: TERESA Sertraline HCl (Sertraline Hcl 50 Mg Tablet) 150 mg PO DAILY [facility] Last Admin: 07/04/23 08:32 Dose: 150 mg Documented By: TERESA Sodium Bicarbonate (Sodium Bicarbonate 650 Mg Tablet) 650 mg PO TID [facility] Last Admin: 07/04/23 08:32 Dose: 650 mg Documented By: TERESA Sodium Biphosphate/Sodium Phosphate (Sodium Phosphate,Mckean-Dibasic 133 Ml Enema) 118 ml MS DAILY PRN PRN Reason: Constipation Sodium Chloride (0.9 % Sodium Chloride Flush 3 Ml Syringe) 3 ml IVFLUSH QSHIFT [facility] Last Admin: 07/04/23 08:32 Dose: 3 ml Documented By: TERESA Thiamine HCl (Thiamine Hcl 100 Mg Tablet) 100 mg PO DAILY [facility] Last Admin: 07/04/23 08:32 Dose: 100 mg Documented By: TERESA Labs 06/28/23 09:05 06/30/23 10:43 Labs: Laboratory Results - last 24 hr 07/03/23 07/03/23 07/04/23 15:54 20:40 08:00 POC Glucose 187 H 188 H 195 H 07/04/23 11:40 POC Glucose 175 H Assessment and Plan (1) Acute on chronic renal failure: Status: Acute (2) Acute hepatic encephalopathy: Status: Acute Plan d19 67yo with EtOH cirrhosis, chronic indwelling urinary catheter, orthostatic hypotension on midodrine, GERD, DM2 on insulin recent admission for decompensated cirrhosis with ascites + PENNY readmitted with ESRD requiring HD ESRD now HD dependent - likely due to ATN, HRS, prerenal state; unlikely cardiorenal - did not improve with IV crystalloid or colloid; temporary HD catheter placed 06/25 and started HD; Nephrology following and will have family meeting tomorrow; next HD tomorrow - awaiting outpt HD placement cirrhosis with ascites - 5L removed 06/16, another 5L removed 06/27, will schedule another paracentesis hepatic encephalopathy with seizure - triggered by renal failure - continue lactulose + rifaximin - lorazepam as needed; seizure has not recurred candiduria - per ID, no treatment recommended acute/chronic anemia - recent endoscopy @ [facility] 05/04 showed no portal hypertensive gastropathy or varices; stable H&H; transfused 2 units of pRBCs - seen by GI, no endoscopy recommended at this time, octreotide stopped, continue PPI, H+H stable s/p octreotide,continue PPI orthostatic hypotension - midodrine chronic metabolic acidosis - continue bicarbonate chronic HFrEF [30-35%] - no acute decompensation hx DM2 - A1c only 5.3, no meds necessary AUD - naltrexone mood disorder - sertraline VTE ppx - SCDs dispo - return to [facility] for STR In my clinical judgment, the patient requires continued inpatient hospitalization for the following reasons: HD dependence Total time managing care of this patient today: 45 minutes. Quality Stroke Does the patient have a stroke diagnosis?: No VTE Prior VTE?: No VTE Risk Level:: Medical - moderate - high VTE Device Contraindication: N/A - Device Ordered VTE Drug Contraindication: Treatment Not Indicated
--- NOTE | 2023-07-04 14:34 | MHC.CM.PN ---
Notified [facility], Patient will need to return to SNF. No bed offers obtained from facilities with on site HD. [facility] to [facility]. All info needed to set up transport have been provided to DTR Maria. She will work with her mother to set up transport. HD @ [facility] starts 07/09/23 11:15 am chair time T-T-S. A competency eval has been ordered to determine if HCP invocation is still needed. Patient will be able to discharge after HD on Saturday to [facility], once transport set up is confirmed with [facility] [phone]
--- NOTE | 2023-07-04 14:41 | PC.NURSE ---
pt transported to IR for paracenthesis
[2023-07-04] MEDS: Lidocaine HCl 1 % MPF 5 ML VIAL SUBCUT (15:14)
[2023-07-04 15:27] VITALS: BP 99/50; PULSE 72; RESP 18; TEMP 36.3; O2SAT 98
[2023-07-04 16:25] LABS: Glucose, Whole Blood 149 mg/dL (60-115)
--- NOTE | 2023-07-04 19:05 | P.PNNP_ITS ---
Subjective Subjective Date of Service: 07/04/23 Interval history: Events noted Physical Exam 2 Vital Signs: Vital Signs: Last Vital Signs Temp 97.4 F 07/04/23 15:27 Pulse 72 07/04/23 15:27 Resp 18 07/04/23 15:27 BP 99/50 L 07/04/23 15:27 Pulse Ox 98 07/04/23 15:27 O2 Del Method Room Air 07/04/23 15:27 O2 Flow Rate 2 07/03/23 20:00 Oxygen Flow Rate 2 06/15/23 18:39 BMI result Body Mass Index 27.8 Const: General: comfortable and no acute distress HEENT: Head: Yes normocephalic Mouth: Normal oral and palatal mucosa present Eyes: EOM: EOMs intact bilaterally Neck: Neck: Yes supple Resp: Auscultation: clear to auscultation bilaterally Cardio: Jugular venous distension: no JVD Rate: regular rate GI: Palpation (GI): Soft to palpation Auscultation: normal bowel sounds : General: Yes no CVA tenderness Back/Spine/Pelvis: Back: no CVA tenderness Skin: General skin exam: no rashes or lesions noted Neuro: General: moves all extremities Objective Data Labs 06/28/23 09:05 06/30/23 10:43 Labs: Laboratory Results - last 24 hr 07/03/23 07/04/23 07/04/23 20:40 08:00 11:40 POC Glucose 188 H 195 H 175 H 07/04/23 16:21 POC Glucose 149 H Microbiology Microbiology Results: Microbiology 06/17/23 11:30 Paracentesis Fluid Gram Stain - Final 06/17/23 11:30 Paracentesis Fluid Anaerobic Culture - Final NO GROWTH AFTER 5 DAYS 06/17/23 11:30 Paracentesis Fluid Body Fluid Culture - Final No growth after 2 days 06/16/23 00:02 Blood - Venous Blood Culture - Final No growth after 5 days. 06/16/23 00:02 Blood - Venous Blood Culture - Final No growth after 5 days. 06/15/23 21:41 Urine Catheterized - Straight Catheter Urine Culture - Final Yesy glabrata Procedures Date of Service Date of Service: 07/04/23 Assessment & Plan Assessment and plan (1) Acute on chronic renal failure: Status: Acute (2) Catheter-associated urinary tract infection: Status: Acute (3) Acute hepatic encephalopathy: Status: Acute (4) Chronic systolic (congestive) heart failure: Status: Acute (5) PENNY (acute kidney injury): Status: Inactive (6) Ascites: Status: Inactive (7) Chronic indwelling Gordon catheter: Status: Inactive (8) Acute on chronic anemia: Status: Resolved Plan 67 yr old man with DOUGIE superimpose don CKD 3 DDX for PENNY : Hypoperfusion from volume depletion /low BP tubular injury/ATN HRS No obstruction No improvement in renal function C3/C4 are low Suggest HD support 3 x a week Avoid nephrotoxins Paracenthesis p.r.n. Watch urine out put Watch renal function Out pt HD arranged Spoke to his Joanie - all questions answered. Time Spent With Patient Time: Total time managing care of this patient today ____ minutes. Progress Note: Quality Stroke Does the patient have a stroke diagnosis?: No
[2023-07-04 20:00] VITALS: BP 115/54; PULSE 75; RESP 18; TEMP 36.4; O2SAT 100
[2023-07-04 20:31] LABS: Glucose, Whole Blood 210 mg/dL (60-115)
[2023-07-04 23:53] VITALS: BP 115/59; PULSE 76; RESP 20; TEMP 36.9; O2SAT 100
[2023-07-05 04:00] VITALS: BP 114/59; PULSE 79; RESP 20; TEMP 37.3; O2SAT 96
[2023-07-05] MEDS: Omeprazole 40 MG CAPSULE.DR PO (05:48)
[2023-07-05 07:56] VITALS: BP 96/58; PULSE 98; RESP 18; TEMP 36.1; O2SAT 99
[2023-07-05 08:01] LABS: Glucose, Whole Blood 199 mg/dL (60-115)
[2023-07-05] MEDS: Sodium Bicarbonate 650 MG TABLET PO ×3 (08:14→21:05)
[2023-07-05] MEDS: Insulin Lispro 100 UNIT/ML 3 ML VIAL SUBCUT ×3 (08:14→16:58)
[2023-07-05] MEDS: Thiamine HCL 100 MG TABLET PO (08:14)
[2023-07-05] MEDS: Naltrexone HCl 50 MG TABLET PO (08:14)
[2023-07-05] MEDS: Folic Acid 1 MG TABLET PO (08:14)
[2023-07-05] MEDS: rifAXIMin 550 MG TABLET PO ×2 (08:14→21:05)
[2023-07-05] MEDS: Midodrine HCl 10 MG TABLET PO ×3 (08:15→16:52)
[2023-07-05] MEDS: Lactulose 20 GM/30 ML SOLUTION 30 GM PO ×2 (08:15→21:05)
[2023-07-05] MEDS: Gabapentin 100 MG CAPSULE 200 MG PO (08:15)
[2023-07-05] MEDS: Multivitamin TABLET 1 TAB PO (08:15)
[2023-07-05] MEDS: Sertraline HCL 50 MG TABLET 150 MG PO (08:15)
[2023-07-05] MEDS: 0.9 % Sodium Chloride Flush 3 ML SYRINGE IVFLUSH ×3 (08:35→21:06)
--- NOTE | 2023-07-05 09:26 | MHC.CM.PN ---
[facility] UPDATED IN [facility]. PER CONVERSATION WITH CM, FAMILY MEETING IS PLANNED TODAY
--- NOTE | 2023-07-05 11:57 | P.PNNP_ITS ---
Subjective Subjective Date of Service: 07/05/23 Interval history: Events noted On HD today Physical Exam 2 Vital Signs: Vital Signs: Last Vital Signs Temp 97.0 F 07/05/23 07:56 Pulse 98 07/05/23 07:56 Resp 18 07/05/23 07:56 BP 96/58 L 07/05/23 07:56 Pulse Ox 99 07/05/23 07:56 O2 Del Method Room Air 07/05/23 07:56 O2 Flow Rate 2 07/03/23 20:00 Oxygen Flow Rate 2 06/15/23 18:39 BMI result Body Mass Index 27.8 Const: General: comfortable and no acute distress HEENT: Head: Yes normocephalic Mouth: Normal oral and palatal mucosa present Eyes: EOM: EOMs intact bilaterally Neck: Neck: Yes supple Resp: Auscultation: clear to auscultation bilaterally Cardio: Jugular venous distension: no JVD Rate: regular rate GI: Palpation (GI): Soft to palpation Auscultation: normal bowel sounds : General: Yes no CVA tenderness Back/Spine/Pelvis: Back: no CVA tenderness Skin: General skin exam: no rashes or lesions noted Neuro: General: moves all extremities Objective Data Labs 06/28/23 09:05 06/30/23 10:43 Labs: Laboratory Results - last 24 hr 07/04/23 07/04/23 07/05/23 16:21 20:19 07:52 POC Glucose 149 H 210 H 199 H Microbiology Microbiology Results: Microbiology 06/17/23 11:30 Paracentesis Fluid Gram Stain - Final 06/17/23 11:30 Paracentesis Fluid Anaerobic Culture - Final NO GROWTH AFTER 5 DAYS 06/17/23 11:30 Paracentesis Fluid Body Fluid Culture - Final No growth after 2 days 06/16/23 00:02 Blood - Venous Blood Culture - Final No growth after 5 days. 06/16/23 00:02 Blood - Venous Blood Culture - Final No growth after 5 days. 06/15/23 21:41 Urine Catheterized - Straight Catheter Urine Culture - Final Yesy glabrata Procedures Date of Service Date of Service: 07/05/23 Assessment & Plan Assessment and plan (1) Acute on chronic renal failure: Status: Acute (2) Catheter-associated urinary tract infection: Status: Acute (3) Acute hepatic encephalopathy: Status: Acute (4) Chronic systolic (congestive) heart failure: Status: Acute (5) Ascites: Status: Inactive (6) Chronic indwelling Gordon catheter: Status: Inactive (7) Acute on chronic anemia: Status: Resolved Plan 67 yr old man with DOUGIE superimpose don CKD 3 DDX for PENNY : Hypoperfusion from volume depletion /low BP tubular injury/ATN HRS No obstruction No improvement in renal function C3/C4 are low Suggest HD support 3 x a week Avoid nephrotoxins Paracenthesis p.r.n. Watch urine out put Watch renal function Out pt HD arranged Spoke to his Joanie on 07/04/23- all questions answered. Time Spent With Patient Time: Total time managing care of this patient today ____ minutes. Progress Note: Quality Stroke Does the patient have a stroke diagnosis?: No
[2023-07-05 12:00] VITALS: BP 96/58; PULSE 98; RESP 18; TEMP 36.1; O2SAT 99
[2023-07-05 12:15] LABS: Glucose, Whole Blood 201 mg/dL (60-115)
[2023-07-05] MEDS: Acetaminophen 325 MG TABLET 650 MG PO (12:49)
--- NOTE | 2023-07-05 14:35 | MHC.CM.PN ---
Addendum entered by Patti Scherer RN 07/05/23 15:23: HINN 12 DELIVERED, EXPLAINED, AND SIGNED. COPY PLACED IN CHART , MAAME, HAS ORIGINAL. Original Note: NEW PLAN IS FOR PATIENT TO RETURN TO [facility] ON SATURDAY PER FACILITY REQUEST. CM TO DELIVER HINN 12 WHEN FAMILY ARRIVES TO UNIT. CM [employer]OR [employer]KER AWARE OF PLAN.
--- NOTE | 2023-07-05 14:40 | HO.PM.IMPN ---
Subjective Subjective Date of Service: 07/05/23 Interval History: paracentesis yesterday, HD today no new complaints Review of Systems Review of Systems: Yes all other systems are reviewed and are negative Physical Exam Vital Signs: Vital Signs: Last Vital Signs Temp 97.0 F 07/05/23 07:56 Pulse 98 07/05/23 07:56 Resp 18 07/05/23 07:56 BP 96/58 L 07/05/23 07:56 Pulse Ox 99 07/05/23 07:56 O2 Del Method Room Air 07/05/23 07:56 O2 Flow Rate 2 07/03/23 20:00 Oxygen Flow Rate 2 06/15/23 18:39 BMI result Body Mass Index 27.8 Gen: in no acute distress HEENT: sclera anicteric, moist mucus membranes Neck: supple, R subclavian tunneled HD catheter Lungs: clear to auscultation bilaterally Heart: regular rate and rhythm, no murmurs Abd: less distended, ascites present Ext: no edema Skin: warm/well-perfused Neuro: alert and oriented x3, no focal findings, no asterixis Psych: appropriate affect Objective Data Active Medications Acetaminophen (Acetaminophen 325 Mg Tablet) 650 mg PO Q6H PRN PRN Reason: Pain, Mild (Pain Scale 1-3) Last Admin: 07/05/23 12:49 Dose: 650 mg Documented By: PEDRO Bisacodyl (Bisacodyl 10 Mg Supp.Rect) 10 mg DE DAILY PRN PRN Reason: Constipation Folic Acid (Folic Acid 1 Mg Tablet) 1 mg PO DAILY [facility] Last Admin: 07/05/23 08:14 Dose: 1 mg Documented By: GEORGE Gabapentin (Gabapentin 100 Mg Capsule) 200 mg PO DAILY [facility] Last Admin: 07/05/23 08:15 Dose: 200 mg Documented By: GEORGE Glucose (Glucose Gel 15 Gm Gel..Gram.) 15 gm PO Q15M PRN; Protocol PRN Reason: per Hypoglycemia Standing Ord. Heparin Sodium (Porcine) (Heparin Sodium,Porcine 5,000 Unit/Ml Vial) 5,000 unit INTRACATH MOWEFR@1645 [facility] Last Admin: 07/03/23 17:10 Dose: Not Given Documented By: TERESA Non-Admin Reason: Given in Dialysis Dextrose (D10) 250 mls @ 750 mls/hr IV Q15M PRN; Protocol PRN Reason: per Hypoglycemia Standing Ord. Insulin Human Lispro (Insulin Lispro 100 Unit/Ml 3 Ml Vial) 0 unit SUBCUT QIDACHS [facility]; Protocol Last Admin: 07/05/23 12:49 Dose: 4 unit Documented By: PEDRO Lactulose (Lactulose 20 Gm/30 Ml Solution) 30 gm PO BID [facility] Last Admin: 07/05/23 08:15 Dose: 30 gm Documented By: GEORGE Melatonin (Melatonin 3 Mg Tablet) 6 mg PO BEDTIME PRN PRN Reason: Insomnia Last Admin: 07/02/23 22:47 Dose: 6 mg Documented By: FLORIN Midodrine (Midodrine Hcl 10 Mg Tablet) 10 mg PO TID@0900,1300,1700 [facility] Last Admin: 07/05/23 12:48 Dose: 10 mg Documented By: PEDRO Multivitamins/Vitamin C (Multivitamin Tablet) 1 tab PO DAILY [facility] Last Admin: 07/05/23 08:15 Dose: 1 tab Documented By: GEORGE Naltrexone HCl (Naltrexone Hcl 50 Mg Tablet) 50 mg PO DAILY [facility] Last Admin: 07/05/23 08:14 Dose: 50 mg Documented By: GEORGE Nystatin (Nystatin Powder 15 Gm Bottle) 1 appl TOPICAL DAILY [facility]; Protocol Last Admin: 07/05/23 11:25 Dose: Not Given Documented By: PEDRO Non-Admin Reason: Previously Administered Omeprazole (Omeprazole 40 Mg Capsule.Dr) 40 mg PO DAILY@0630 [facility] Last Admin: 07/05/23 05:48 Dose: 40 mg Documented By: BELKYS Ondansetron HCl (Ondansetron Hcl 4 Mg/2 Ml Vial) 4 mg IVPUSH Q8H PRN PRN Reason: Nausea and Vomiting Last Admin: 06/17/23 09:31 Dose: 4 mg Documented By: NORI Rifaximin (Rifaximin 550 Mg Tablet) 550 mg PO BID [facility] Last Admin: 07/05/23 08:14 Dose: 550 mg Documented By: GEORGE Sertraline HCl (Sertraline Hcl 50 Mg Tablet) 150 mg PO DAILY [facility] Last Admin: 07/05/23 08:15 Dose: 150 mg Documented By: GEORGE Sodium Bicarbonate (Sodium Bicarbonate 650 Mg Tablet) 650 mg PO TID [facility] Last Admin: 07/05/23 08:14 Dose: 650 mg Documented By: GEORGE Sodium Biphosphate/Sodium Phosphate (Sodium Phosphate,Hill-Dibasic 133 Ml Enema) 118 ml DE DAILY PRN PRN Reason: Constipation Sodium Chloride (0.9 % Sodium Chloride Flush 3 Ml Syringe) 3 ml IVFLUSH QSHIFT [facility] Last Admin: 07/05/23 08:35 Dose: 3 ml Documented By: GEORGE Thiamine HCl (Thiamine Hcl 100 Mg Tablet) 100 mg PO DAILY [facility] Last Admin: 07/05/23 08:14 Dose: 100 mg Documented By: GEORGE Labs 06/28/23 09:05 06/30/23 10:43 Labs: Laboratory Results - last 24 hr 07/04/23 07/04/23 07/05/23 16:21 20:19 07:52 POC Glucose 149 H 210 H 199 H 07/05/23 12:11 POC Glucose 201 H Assessment and Plan (1) Acute on chronic renal failure: Status: Acute (2) Acute hepatic encephalopathy: Status: Acute Plan d20 67yo with EtOH cirrhosis, chronic indwelling urinary catheter, orthostatic hypotension on midodrine, GERD, DM2 on insulin recent admission for decompensated cirrhosis with ascites + PENNY readmitted with PENNY now requiring HD PENNY/CKD3 - now HD dependent; likely due to ATN, HRS, prerenal state; unlikely cardiorenal - did not improve with IV crystalloid or colloid; temporary HD catheter placed 06/25 and started HD; Nephrology following; HD today and tomorrow and has outpt spot at [facility] starting 07/08 cirrhosis with ascites - 5L removed 06/16, another 5L removed 06/27, 5.5L removed 07/03 hepatic encephalopathy with seizure - triggered by renal failure - continue lactulose + rifaximin - lorazepam as needed; seizure has not recurred candiduria - per ID, no treatment recommended acute/chronic anemia - recent endoscopy @ [facility] 05/04 showed no portal hypertensive gastropathy or varices; stable H&H; transfused 2 units of pRBCs - seen by GI, no endoscopy recommended at this time, octreotide stopped, continue PPI, H+H stable s/p octreotide,continue PPI orthostatic hypotension - midodrine chronic metabolic acidosis - continue bicarbonate chronic HFrEF [30-35%] - no acute decompensation hx DM2 - A1c only 5.3, no meds necessary AUD - naltrexone mood disorder - sertraline VTE ppx - SCDs dispo - return to [facility] for STR after HD tomorrow In my clinical judgment, the patient requires continued inpatient hospitalization for the following reasons: HD dependence Total time managing care of this patient today: 35 minutes. Quality Stroke Does the patient have a stroke diagnosis?: No VTE Prior VTE?: No VTE Risk Level:: Medical - moderate - high VTE Device Contraindication: N/A - Device Ordered VTE Drug Contraindication: Treatment Not Indicated
--- NOTE | 2023-07-05 15:36 | MHC.CM.PN ---
PATIENT GIVES PERMISSION FOR A REFERRAL TO BE PLACED OT [facility]. HE IS AWARE OF FACILITY LOCATION. HE IS ALSO AWARE THAT PLAN IS STILL FOR DC TO [facility] ON 07/07/24. HE DOES NOT WISH TO RETURN TO [facility]. HE IS AWARE THAT [facility] IS THE ONLY FACILITY OFFERING. ZACK REFERRAL PLACED. FAMILY PRESENT AND AWARE.
[2023-07-05 16:13] LABS: Glucose, Whole Blood 193 mg/dL (60-115)
[2023-07-05 16:18] VITALS: BP 100/96; PULSE 90; RESP 18; TEMP 36.3; O2SAT 97
[2023-07-05] MEDS: Heparin Sodium,Porcine 5,000 UNIT/ML VIAL 5000 UNIT INTRACATH (16:53)
[2023-07-05 19:29] LABS: Glucose, Whole Blood 145 mg/dL (60-115)
[2023-07-05 19:52] VITALS: BP 101/51; PULSE 79; RESP 20; TEMP 36.4; O2SAT 97
[2023-07-05 23:25] VITALS: BP 107/56; PULSE 80; RESP 20; TEMP 36.2; O2SAT 99
[2023-07-06 03:40] VITALS: BP 111/56; PULSE 78; RESP 20; TEMP 36.9; O2SAT 100
[2023-07-06] MEDS: Omeprazole 40 MG CAPSULE.DR PO (06:07)
[2023-07-06 07:38] VITALS: BP 102/59; PULSE 74; RESP 20; TEMP 36.5; O2SAT 100
[2023-07-06 08:01] LABS: Glucose, Whole Blood 223 mg/dL (60-115)
[2023-07-06] MEDS: Gabapentin 100 MG CAPSULE 200 MG PO (08:09)
[2023-07-06] MEDS: Midodrine HCl 10 MG TABLET PO ×3 (08:09→16:58)
[2023-07-06] MEDS: Naltrexone HCl 50 MG TABLET PO (08:10)
[2023-07-06] MEDS: Thiamine HCL 100 MG TABLET PO (08:10)
[2023-07-06] MEDS: rifAXIMin 550 MG TABLET PO ×2 (08:10→21:26)
[2023-07-06] MEDS: Insulin Lispro 100 UNIT/ML 3 ML VIAL SUBCUT ×4 (08:10→21:26)
[2023-07-06] MEDS: 0.9 % Sodium Chloride Flush 3 ML SYRINGE IVFLUSH ×3 (08:10→21:27)
[2023-07-06] MEDS: Folic Acid 1 MG TABLET PO (08:10)
[2023-07-06] MEDS: Sodium Bicarbonate 650 MG TABLET PO ×3 (08:10→21:25)
[2023-07-06] MEDS: Sertraline HCL 50 MG TABLET 150 MG PO (08:10)
[2023-07-06] MEDS: Multivitamin TABLET 1 TAB PO (08:10)
[2023-07-06 11:22] VITALS: BP 104/54; PULSE 71; RESP 18; TEMP 36.1; O2SAT 98
[2023-07-06 11:39] LABS: Glucose, Whole Blood 170 mg/dL (60-115)
--- NOTE | 2023-07-06 11:58 | P.PNIM_ITS ---
Subjective Subjective Date of Service: 07/06/23 Interval History: no new complaints HD yesterday and again today Review of Systems Review of Systems: Yes all other systems are reviewed and are negative Physical Exam 2 Vital Signs: Vital Signs: Last Vital Signs Temp 97.0 F 07/06/23 11:22 Pulse 71 07/06/23 11:22 Resp 18 07/06/23 11:22 BP 104/54 L 07/06/23 11:22 Pulse Ox 98 07/06/23 11:22 O2 Del Method Room Air 07/06/23 11:22 O2 Flow Rate 2 07/03/23 20:00 Oxygen Flow Rate 2 06/15/23 18:39 BMI result Body Mass Index 27.8 Gen: in no acute distress HEENT: sclera anicteric, moist mucus membranes Neck: supple, R subclavian tunneled HD catheter Lungs: clear to auscultation bilaterally Heart: regular rate and rhythm, no murmurs Abd: less distended, ascites present Ext: no edema Skin: warm/well-perfused Neuro: alert and oriented x3, no focal findings, no asterixis Psych: appropriate affect Objective Data Active Medications Acetaminophen (Acetaminophen 325 Mg Tablet) 650 mg PO Q6H PRN PRN Reason: Pain, Mild (Pain Scale 1-3) Last Admin: 07/05/23 12:49 Dose: 650 mg Documented By: PEDRO Bisacodyl (Bisacodyl 10 Mg Supp.Rect) 10 mg MN DAILY PRN PRN Reason: Constipation Folic Acid (Folic Acid 1 Mg Tablet) 1 mg PO DAILY [facility] Last Admin: 07/06/23 08:10 Dose: 1 mg Documented By: LAVERNE Gabapentin (Gabapentin 100 Mg Capsule) 200 mg PO DAILY [facility] Last Admin: 07/06/23 08:09 Dose: 200 mg Documented By: LAVERNE Glucose (Glucose Gel 15 Gm Gel..Gram.) 15 gm PO Q15M PRN; Protocol PRN Reason: per Hypoglycemia Standing Ord. Heparin Sodium (Porcine) (Heparin Sodium,Porcine 5,000 Unit/Ml Vial) 5,000 unit INTRACATH MOWEFR@1645 [facility] Last Admin: 07/05/23 16:53 Dose: 5,000 unit Documented By: GEORGE Dextrose (D10) 250 mls @ 750 mls/hr IV Q15M PRN; Protocol PRN Reason: per Hypoglycemia Standing Ord. Insulin Human Lispro (Insulin Lispro 100 Unit/Ml 3 Ml Vial) 0 unit SUBCUT QIDACHS [facility]; Protocol Last Admin: 07/06/23 08:10 Dose: 4 unit Documented By: LAVERNE Lactulose (Lactulose 20 Gm/30 Ml Solution) 30 gm PO BID [facility] Last Admin: 07/06/23 10:40 Dose: Not Given Documented By: LAVERNE Non-Admin Reason: Patient Refused Melatonin (Melatonin 3 Mg Tablet) 6 mg PO BEDTIME PRN PRN Reason: Insomnia Last Admin: 07/02/23 22:47 Dose: 6 mg Documented By: FLORIN Midodrine (Midodrine Hcl 10 Mg Tablet) 10 mg PO TID@0900,1300,1700 [facility] Last Admin: 07/06/23 08:09 Dose: 10 mg Documented By: LAVERNE Multivitamins/Vitamin C (Multivitamin Tablet) 1 tab PO DAILY [facility] Last Admin: 07/06/23 08:10 Dose: 1 tab Documented By: LAVERNE Naltrexone HCl (Naltrexone Hcl 50 Mg Tablet) 50 mg PO DAILY [facility] Last Admin: 07/06/23 08:10 Dose: 50 mg Documented By: LAVERNE Nystatin (Nystatin Powder 15 Gm Bottle) 1 appl TOPICAL DAILY [facility]; Protocol Last Admin: 07/06/23 10:40 Dose: Not Given Documented By: LAVERNE Non-Admin Reason: Previously Administered Omeprazole (Omeprazole 40 Mg Capsule.) 40 mg PO DAILY@0630 [facility] Last Admin: 07/06/23 06:07 Dose: 40 mg Documented By: ILYA Ondansetron HCl (Ondansetron Hcl 4 Mg/2 Ml Vial) 4 mg IVPUSH Q8H PRN PRN Reason: Nausea and Vomiting Last Admin: 06/17/23 09:31 Dose: 4 mg Documented By: NORI Rifaximin (Rifaximin 550 Mg Tablet) 550 mg PO BID [facility] Last Admin: 07/06/23 08:10 Dose: 550 mg Documented By: LAVERNE Sertraline HCl (Sertraline Hcl 50 Mg Tablet) 150 mg PO DAILY [facility] Last Admin: 07/06/23 08:10 Dose: 150 mg Documented By: LAVERNE Sodium Bicarbonate (Sodium Bicarbonate 650 Mg Tablet) 650 mg PO TID [facility] Last Admin: 07/06/23 08:10 Dose: 650 mg Documented By: LAVERNE Sodium Biphosphate/Sodium Phosphate (Sodium Phosphate,[place]-Dibasic 133 Ml Enema) 118 ml MN DAILY PRN PRN Reason: Constipation Sodium Chloride (0.9 % Sodium Chloride Flush 3 Ml Syringe) 3 ml IVFLUSH QSHIFT [facility] Last Admin: 07/06/23 08:10 Dose: 3 ml Documented By: LAVERNE Thiamine HCl (Thiamine Hcl 100 Mg Tablet) 100 mg PO DAILY [facility] Last Admin: 07/06/23 08:10 Dose: 100 mg Documented By: LAVERNE Labs 06/28/23 09:05 06/30/23 10:43 Labs: Laboratory Results - last 24 hr 07/05/23 07/05/23 07/05/23 12:11 16:07 19:18 POC Glucose 201 H 193 H 145 H 07/06/23 07/06/23 07:57 11:36 POC Glucose 223 H 170 H Assessment and Plan (1) Acute on chronic renal failure: Status: Acute (2) Acute hepatic encephalopathy: Status: Acute Plan d21 67yo with EtOH cirrhosis, chronic indwelling urinary catheter, orthostatic hypotension on midodrine, GERD, DM2 on insulin recent admission for decompensated cirrhosis with ascites + PENNY readmitted with PENNY now requiring HD PENNY/CKD3 - now HD dependent; likely due to ATN, HRS, prerenal state; unlikely cardiorenal - did not improve with IV crystalloid or colloid; temporary HD catheter placed 06/25 and started HD; Nephrology following; HD today and has outpt HD spot at [facility] starting 07/09/23 [facility] cirrhosis with ascites - 5L removed 06/16, another 5L removed 06/27, 5.5L removed 07/03 hepatic encephalopathy with seizure - triggered by renal failure - continue lactulose + rifaximin - lorazepam as needed; seizure has not recurred candiduria - per ID, no treatment recommended acute/chronic anemia - recent endoscopy @ [facility] 05/04 showed no portal hypertensive gastropathy or varices; stable H&H; transfused 2 units of pRBCs - seen by GI, no endoscopy recommended at this time, octreotide stopped, continue PPI, H+H stable s/p octreotide,continue PPI orthostatic hypotension - midodrine chronic metabolic acidosis - continue bicarbonate chronic HFrEF [30-35%] - no acute decompensation hx DM2 - A1c only 5.3, no meds necessary AUD - naltrexone mood disorder - sertraline VTE ppx - SCDs dispo - return to [facility] for STR, earliest they can take him is 07/08/23 In my clinical judgment, the patient requires continued inpatient hospitalization for the following reasons: HD dependence, placement Total time managing care of this patient today: 35 minutes. Quality Stroke Does the patient have a stroke diagnosis?: No VTE Prior VTE?: No VTE Risk Level:: Medical - moderate - high VTE Device Contraindication: N/A - Device Ordered VTE Drug Contraindication: Treatment Not Indicated
[2023-07-06 15:36] VITALS: BP 117/66; PULSE 75; RESP 20; TEMP 36.7; O2SAT 100
[2023-07-06 16:45] LABS: Glucose, Whole Blood 201 mg/dL (60-115)
[2023-07-06 19:14] VITALS: BP 119/60; PULSE 77; RESP 20; TEMP 37; O2SAT 99
[2023-07-06 19:56] LABS: Glucose, Whole Blood 250 mg/dL (60-115)
[2023-07-06] MEDS: Lactulose 20 GM/30 ML SOLUTION 30 GM PO (21:26)
[2023-07-06] MEDS: Acetaminophen 325 MG TABLET 650 MG PO (21:38)
[2023-07-07] VITALS (7 sets, daily range): BP systolic 102–114; BP diastolic 51–63; PULSE 68–82; RESP 18–20; TEMP 36.2–37.1; O2SAT 93–100
[2023-07-07] MEDS: Omeprazole 40 MG CAPSULE.DR PO (06:05)
[2023-07-07 07:30] LABS: Glucose, Whole Blood 174 mg/dL (60-115)
[2023-07-07] MEDS: Sertraline HCL 50 MG TABLET 150 MG PO (08:50)
[2023-07-07] MEDS: Midodrine HCl 10 MG TABLET PO ×3 (08:50→16:29)
[2023-07-07] MEDS: Multivitamin TABLET 1 TAB PO (08:50)
[2023-07-07] MEDS: Gabapentin 100 MG CAPSULE 200 MG PO (08:50)
[2023-07-07] MEDS: Sodium Bicarbonate 650 MG TABLET PO ×3 (08:51→21:52)
[2023-07-07] MEDS: Naltrexone HCl 50 MG TABLET PO (08:51)
[2023-07-07] MEDS: rifAXIMin 550 MG TABLET PO ×2 (08:51→21:52)
[2023-07-07] MEDS: Folic Acid 1 MG TABLET PO (08:51)
[2023-07-07] MEDS: Insulin Lispro 100 UNIT/ML 3 ML VIAL SUBCUT ×4 (08:51→21:52)
[2023-07-07] MEDS: Thiamine HCL 100 MG TABLET PO (08:51)
[2023-07-07] MEDS: Lactulose 20 GM/30 ML SOLUTION 30 GM PO ×2 (09:00→21:52)
[2023-07-07] MEDS: Nystatin Powder 15 GM BOTTLE 1 APPL TOPICAL (09:06)
--- NOTE | 2023-07-07 11:24 | P.PNIM_ITS ---
Subjective Subjective Date of Service: 07/07/23 Interval History: did not get HD yesterday no new events Review of Systems Review of Systems: Yes all other systems are reviewed and are negative Physical Exam 2 Vital Signs: Vital Signs: Last Vital Signs Temp 98.4 F 07/07/23 07:53 Pulse 68 07/07/23 07:53 Resp 18 07/07/23 07:53 BP 104/60 07/07/23 07:53 Pulse Ox 100 07/07/23 07:53 O2 Del Method Room Air 07/07/23 07:53 O2 Flow Rate 2 07/03/23 20:00 Oxygen Flow Rate 2 06/15/23 18:39 BMI result Body Mass Index 27.8 Gen: in no acute distress HEENT: sclera anicteric, moist mucus membranes Neck: supple, R subclavian tunneled HD catheter Lungs: clear to auscultation bilaterally Heart: regular rate and rhythm, no murmurs Abd: less distended, ascites present Ext: no edema Skin: warm/well-perfused Neuro: alert and oriented x3, no focal findings, no asterixis Psych: appropriate affect Objective Data Active Medications Acetaminophen (Acetaminophen 325 Mg Tablet) 650 mg PO Q6H PRN PRN Reason: Pain, Mild (Pain Scale 1-3) Last Admin: 07/06/23 21:38 Dose: 650 mg Documented By: ILYA Bisacodyl (Bisacodyl 10 Mg Supp.Rect) [address] DAILY PRN PRN Reason: Constipation Folic Acid (Folic Acid 1 Mg Tablet) 1 mg PO DAILY [facility] Last Admin: 07/07/23 08:51 Dose: 1 mg Documented By: LAVERNE Gabapentin (Gabapentin 100 Mg Capsule) 200 mg PO DAILY [facility] Last Admin: 07/07/23 08:50 Dose: 200 mg Documented By: LAVERNE Glucose (Glucose Gel 15 Gm Gel..Gram.) 15 gm PO Q15M PRN; Protocol PRN Reason: per Hypoglycemia Standing Ord. Heparin Sodium (Porcine) (Heparin Sodium,Porcine 5,000 Unit/Ml Vial) 5,000 unit INTRACATH MOWEFR@1645 [facility] Last Admin: 07/05/23 16:53 Dose: 5,000 unit Documented By: GEORGE Dextrose (D10) 250 mls @ 750 mls/hr IV Q15M PRN; Protocol PRN Reason: per Hypoglycemia Standing Ord. Insulin Human Lispro (Insulin Lispro 100 Unit/Ml 3 Ml Vial) 0 unit SUBCUT QIDACHS [facility]; Protocol Last Admin: 07/07/23 08:51 Dose: 2 unit Documented By: LAVERNE Lactulose (Lactulose 20 Gm/30 Ml Solution) 30 gm PO BID [facility] Last Admin: 07/07/23 09:00 Dose: 30 gm Documented By: LAVERNE Melatonin (Melatonin 3 Mg Tablet) 6 mg PO BEDTIME PRN PRN Reason: Insomnia Last Admin: 07/02/23 22:47 Dose: 6 mg Documented By: FLORIN Midodrine (Midodrine Hcl 10 Mg Tablet) 10 mg PO TID@0900,1300,1700 [facility] Last Admin: 07/07/23 08:50 Dose: 10 mg Documented By: LAVERNE Multivitamins/Vitamin C (Multivitamin Tablet) 1 tab PO DAILY [facility] Last Admin: 07/07/23 08:50 Dose: 1 tab Documented By: LAVERNE Naltrexone HCl (Naltrexone Hcl 50 Mg Tablet) 50 mg PO DAILY [facility] Last Admin: 07/07/23 08:51 Dose: 50 mg Documented By: LAVERNE Nystatin (Nystatin Powder 15 Gm Bottle) 1 appl TOPICAL DAILY [facility]; Protocol Last Admin: 07/07/23 09:06 Dose: 1 appl Documented By: LAVERNE Omeprazole (Omeprazole 40 Mg Capsule.Dr) 40 mg PO DAILY@0630 [facility] Last Admin: 07/07/23 06:05 Dose: 40 mg Documented By: ILYA Ondansetron HCl (Ondansetron Hcl 4 Mg/2 Ml Vial) 4 mg IVPUSH Q8H PRN PRN Reason: Nausea and Vomiting Last Admin: 06/17/23 09:31 Dose: 4 mg Documented By: NORI Rifaximin (Rifaximin 550 Mg Tablet) 550 mg PO BID [facility] Last Admin: 07/07/23 08:51 Dose: 550 mg Documented By: LAVERNE Sertraline HCl (Sertraline Hcl 50 Mg Tablet) 150 mg PO DAILY [facility] Last Admin: 07/07/23 08:50 Dose: 150 mg Documented By: LAVERNE Sodium Bicarbonate (Sodium Bicarbonate 650 Mg Tablet) 650 mg PO TID [facility] Last Admin: 07/07/23 08:51 Dose: 650 mg Documented By: LAVERNE Sodium Biphosphate/Sodium Phosphate (Sodium Phosphate,[place]-Dibasic 133 Ml Enema) [address] DAILY PRN PRN Reason: Constipation Sodium Chloride (0.9 % Sodium Chloride Flush 3 Ml Syringe) 3 ml IVFLUSH QSHIFT [facility] Last Admin: 07/07/23 09:08 Dose: Not Given Documented By: LAVERNE Non-Admin Reason: Previously Administered Thiamine HCl (Thiamine Hcl 100 Mg Tablet) 100 mg PO DAILY [facility] Last Admin: 07/07/23 08:51 Dose: 100 mg Documented By: LAVERNE Labs 06/28/23 09:05 06/30/23 10:43 Labs: Laboratory Results - last 24 hr 07/06/23 07/06/23 07/06/23 11:36 16:42 19:47 POC Glucose 170 H 201 H 250 H 07/07/23 07:16 POC Glucose 174 H Assessment and Plan (1) Acute on chronic renal failure: Status: Acute (2) Acute hepatic encephalopathy: Status: Acute Plan d22 67yo with EtOH cirrhosis, chronic indwelling urinary catheter, orthostatic hypotension on midodrine, GERD, DM2 on insulin recent admission for decompensated cirrhosis with ascites + PENNY readmitted with PENNY now requiring HD PENNY/CKD3 - now HD dependent; likely due to ATN, HRS, prerenal state; unlikely cardiorenal - did not improve with IV crystalloid or colloid; temporary HD catheter placed 06/25 and started HD; Nephrology following; HD tomorrow? then has outpt HD spot at [facility] starting 07/09/23 [facility] cirrhosis with ascites - 5L removed 06/16, another 5L removed 06/27, 5.5L removed 07/03 hepatic encephalopathy with seizure - triggered by renal failure - continue lactulose + rifaximin - lorazepam as needed; seizure has not recurred candiduria - per ID, no treatment recommended acute/chronic anemia - recent endoscopy @ [facility] 05/04 showed no portal hypertensive gastropathy or varices; stable H&H; transfused 2 units of pRBCs - seen by GI, no endoscopy recommended at this time, octreotide stopped, continue PPI, H+H stable s/p octreotide,continue PPI orthostatic hypotension - midodrine chronic metabolic acidosis - continue bicarbonate chronic HFrEF [30-35%] - no acute decompensation hx DM2 - A1c only 5.3, no meds necessary AUD - naltrexone mood disorder - sertraline VTE ppx - SCDs dispo - return to [facility] for STR, earliest they can take him is 07/08/23. Also pursuing placement at [facility] in [place] In my clinical judgment, the patient requires continued inpatient hospitalization for the following reasons: HD dependence, placement Total time managing care of this patient today: 35 minutes. Quality Stroke Does the patient have a stroke diagnosis?: No VTE Prior VTE?: No VTE Risk Level:: Medical - moderate - high VTE Device Contraindication: N/A - Device Ordered VTE Drug Contraindication: Treatment Not Indicated
[2023-07-07 11:40] LABS: Glucose, Whole Blood 235 mg/dL (60-115)
[2023-07-07] MEDS: Acetaminophen 325 MG TABLET 650 MG PO ×2 (14:28→22:31)
[2023-07-07 16:08] LABS: Glucose, Whole Blood 191 mg/dL (60-115)
[2023-07-07] MEDS: 0.9 % Sodium Chloride Flush 3 ML SYRINGE IVFLUSH ×2 (16:31→21:53)
[2023-07-07 21:48] LABS: Glucose, Whole Blood 233 mg/dL (60-115)
[2023-07-08 03:48] VITALS: BP 100/56; PULSE 73; RESP 18; TEMP 36.3; O2SAT 97
[2023-07-08 07:06] LABS: Glucose, Whole Blood 174 mg/dL (60-115)
[2023-07-08 07:25] VITALS: BP 104/50; PULSE 76; RESP 20; TEMP 36.4; O2SAT 99
[2023-07-08] MEDS: Sodium Bicarbonate 650 MG TABLET PO (08:08)
[2023-07-08] MEDS: Naltrexone HCl 50 MG TABLET PO (08:08)
[2023-07-08] MEDS: 0.9 % Sodium Chloride Flush 3 ML SYRINGE IVFLUSH (08:08)
[2023-07-08] MEDS: Sertraline HCL 50 MG TABLET 150 MG PO (08:08)
[2023-07-08] MEDS: Thiamine HCL 100 MG TABLET PO (08:08)
[2023-07-08] MEDS: Midodrine HCl 10 MG TABLET PO ×2 (08:08→12:37)
[2023-07-08] MEDS: Folic Acid 1 MG TABLET PO (08:08)
[2023-07-08] MEDS: rifAXIMin 550 MG TABLET PO (08:08)
[2023-07-08] MEDS: Multivitamin TABLET 1 TAB PO (08:08)
[2023-07-08] MEDS: Gabapentin 100 MG CAPSULE 200 MG PO (08:08)
[2023-07-08] MEDS: Nystatin Powder 15 GM BOTTLE 1 APPL TOPICAL (08:09)
[2023-07-08] MEDS: Insulin Lispro 100 UNIT/ML 3 ML VIAL SUBCUT ×2 (08:09→12:36)
[2023-07-08] MEDS: Lactulose 20 GM/30 ML SOLUTION 30 GM PO (08:09)
[2023-07-08] MEDS: Acetaminophen 325 MG TABLET 650 MG PO (08:16)
--- NOTE | 2023-07-08 08:52 | P.PNNP_ITS ---
Subjective Subjective Date of Service: 07/10/23 Interval history: did not get HD yesterday no new events Physical Exam 2 Vital Signs: Vital Signs: Last Vital Signs Temp 97.5 F 07/08/23 07:25 Pulse 76 07/08/23 07:25 Resp 20 07/08/23 07:25 BP 104/50 L 07/08/23 07:25 Pulse Ox 99 07/08/23 07:25 O2 Del Method Room Air 07/08/23 07:25 O2 Flow Rate 2 07/03/23 20:00 Oxygen Flow Rate 2 06/15/23 18:39 BMI result Body Mass Index 27.8 Const: General: comfortable and no acute distress HEENT: Head: Yes normocephalic Mouth: Normal oral and palatal mucosa present Eyes: EOM: EOMs intact bilaterally Neck: Neck: Yes supple Resp: Auscultation: clear to auscultation bilaterally Cardio: Jugular venous distension: no JVD Rate: regular rate GI: Palpation (GI): Soft to palpation Auscultation: normal bowel sounds : General: Yes no CVA tenderness Back/Spine/Pelvis: Back: no CVA tenderness Skin: General skin exam: no rashes or lesions noted Neuro: General: moves all extremities Objective Data Labs 06/28/23 09:05 06/30/23 10:43 Labs: Laboratory Results - last 24 hr 07/07/23 07/07/23 07/07/23 11:36 16:05 21:37 POC Glucose 235 H 191 H 233 H 07/08/23 07:02 POC Glucose 174 H Microbiology Microbiology Results: Microbiology 06/17/23 11:30 Paracentesis Fluid Gram Stain - Final 06/17/23 11:30 Paracentesis Fluid Anaerobic Culture - Final NO GROWTH AFTER 5 DAYS 06/17/23 11:30 Paracentesis Fluid Body Fluid Culture - Final No growth after 2 days 06/16/23 00:02 Blood - Venous Blood Culture - Final No growth after 5 days. 06/16/23 00:02 Blood - Venous Blood Culture - Final No growth after 5 days. 06/15/23 21:41 Urine Catheterized - Straight Catheter Urine Culture - Final Yesy glabrata Procedures Date of Service Date of Service: 07/10/23 Assessment & Plan Time Spent With Patient Time: Total time managing care of this patient today ____ minutes. Progress Note: Quality Stroke Does the patient have a stroke diagnosis?: No
--- NOTE | 2023-07-08 10:42 | MHC.CM.PN ---
Second IMM given 07/07. Pt is medically cleared for D/C back to [facility] for STR. Pt will receive HD at [facility] by transport arranged by pts /HCP Joanie. This CM spoke with Joanie and the pt, both are in agreement with D/C plan. Pt will transport to [facility] via BLS/Betty at 2pm today.
[2023-07-08 11:23] LABS: Glucose, Whole Blood 207 mg/dL (60-115)
[2023-07-08 11:25] VITALS: BP 92/48; PULSE 69; RESP 20; TEMP 36.4; O2SAT 96
--- NOTE | 2023-07-08 12:59 | PM.DS ---
DS: Providers Provider Date of Service: 07/08/23 Date of admission: 06/16/23 00:05 Date of discharge: 07/08/23 Primary care physician: Sharon Lopez MD Consults: 06/16/23 00:13 Consult to Gastroenterology Routine Consulting Provider: Belinda Suazo Reason for consultation: Hepatorenal syndrome, severe ascites Has provider been notified: No 06/16/23 00:15 Consult to Nephrology Routine Consulting Provider: [facility] Reason for consultation: Hepatorenal syndrome Has provider been notified: No 06/25/23 15:33 Consult to Psychiatry Stat Consulting Provider: Psych Covering Reason for consultation: for competency Has provider been notified: No 06/28/23 18:55 Consult to Wound Care Routine Reason for consultation: PI L posterior shoulder Has provider been notified: Yes 07/04/23 13:18 Consult to Psychiatry Routine Consulting Provider: Psych Covering Reason for consultation: Competency evaluation DS: Diagnosis Discharge Diagnosis (1) Acute on chronic renal failure: Status: Acute (2) Acute hepatic encephalopathy: Status: Acute (3) Cirrhosis of liver with ascites: Status: Acute (4) Seizure: Status: Acute (5) Acute on chronic anemia: Status: Acute DS: Summary Hospital Course Hospital Course: From the history and physical by the admitting hospitalist, Abida Romero, 06/16/23: Andres Torres is a 67 years old man with past medical history significant for chronic liver disease secondary to alcohol + portal hypertension, HFrEF, type 2 diabetes mellitus, GERD and previous episodes of hepatic encephalopathy was brought from [facility] after the patient had seizures. According to ED triage note patient was stents and became unresponsive. It seems like he has not been taking his lactulose lately. On evaluation the patient was alert and oriented x3 however, he was confused at time, saying same thoughts multiple times and difficulty talking. Despite this he was able to answer some of my questions. He denied any pain, nausea, vomiting or diarrhea. He denied abdominal pain however, he mentioned that his abdominal girth has been increasing and does have some shortness on breath. He denied chest pain. No fevers chills has been reported. His daughter was at bedside. In the ED, he was found to have stable vital signs. Blood workup is remarkable for marked elevated creatinine 4.68 (baseline around 2.23-2.40). Hemoglobin dropped from 8.1-6.7. There is no leukocytosis or thrombocytopenia. INR is 1.2. Venous blood gas showed no respiratory acidosis. There are no significant electrolyte imbalances. Bicarb is slightly low, 21. Lactic acid is is 2.8. Bilirubin slightly elevated at 1.4. Transaminases and alk-phos are normal. Ammonia is 22. Urinalysis consistent with urinary tract infection. His CT scan showed no acute intracranial pathology. CXR is negative. ED tx: NS 2L bolus, ceftriaxone 1 g IV, lactulose 30 mg PO X1 and octreotide 100 mcg. 67yo with EtOH cirrhosis, chronic indwelling urinary catheter, orthostatic hypotension on midodrine, GERD, and hx DM2 on insulin; recent admission for decompensated cirrhosis with ascites + PENNY; readmitted this time with PENNY ultimately requiring hemodialysis. Hospital course by problem: PENNY/CKD3 - Nephrology consulted. Tunnel catheter placed 06/26/23 and tiw dialysis initiated. PENNY likely due to ATN, HRS, and hypotension from orthostasis; unlikely cardiorenal. Outpatient [facility] HD secured at [facility] starting Tu 07/09/23. Will need to follow up with Nephrology weekly at dialysis. cirrhosis with recurrent ascites - Underwent periodic paracenteses. 5L removed 06/16, another 5L removed 06/27, 5.5L removed 07/03. Further paracenteses can be scheduled on a prn basis with [facility]. Should have outpatient GI follow up in 2-4 weeks. hepatic encephalopathy with seizure - Triggered by renal failure. Seizure did not recur. Treated with lactulose and rifaximin. candiduria - Per ID, no treatment recommended acute/chronic anemia - Recent endoscopy @ [facility] 05/04 showed no portal hypertensive gastropathy or varices; stable H&H after transfused 2 units of pRBCs. Seen by GI, no endoscopy recommended at this time; octreotide stopped. PPI continued. orthostatic hypotension - Continued midodrine. chronic metabolic acidosis - Continued bicarbonate type 2 diabetes mellitus - A1c only 5.3; insulin discontinued. He was discharged back to [facility] for STR with transport to [facility] for HD. Time Attestation Discharge Coordination Time (in mins): 45 Quality: Safe Use of Opioids Does Pt have an Active Cancer Diagnosis on the Problem List?: No Quality: Stroke Does the patient have a stroke diagnosis?: No Physical Exam Vital Signs: Vital Signs: Last Vital Signs Temp 97.5 F 07/08/23 11:25 Pulse 69 07/08/23 11:25 Resp 20 07/08/23 11:25 BP 92/48 L 07/08/23 11:25 Pulse Ox 96 07/08/23 11:25 O2 Del Method Room Air 07/08/23 11:25 O2 Flow Rate 2 07/03/23 20:00 Oxygen Flow Rate 2 06/15/23 18:39 BMI result Body Mass Index 27.8 Gen: in no acute distress HEENT: sclera anicteric, moist mucus membranes Neck: supple, R subclavian tunneled HD catheter Lungs: clear to auscultation bilaterally Heart: regular rate and rhythm, no murmurs Abd: less distended, ascites present Ext: no edema Skin: warm/well-perfused Neuro: alert and oriented x3, no focal findings, no asterixis Psych: appropriate affect DS: Data Data Completed and Pending Completed studies during hospitalization [Text1]: Laboratory Results WBC 8.1 X10*3/uL (4.8-10.8) 06/28/23 09:05 RBC 2.88 X10*6/uL (4.60-5.80) L 06/28/23 09:05 Hgb 9.0 g/dl (14.0-18.0) L 06/28/23 09:05 Hct 26.6 % (42.0-52.0) L 06/28/23 09:05 MCV 92.4 fL (80.0-98.0) 06/28/23 09:05 MCH 31.3 pg (27.0-33.0) 06/28/23 09:05 MCHC 33.8 g/dl (31.0-36.0) 06/28/23 09:05 RDW 17.8 % (11.0-16.0) H 06/28/23 09:05 Plt Count 118 X10*3/uL (160-400) L D 06/28/23 09:05 MPV 10.9 fL (9.4-12.4) 06/28/23 09:05 Immature Gran % (Auto) 0.3 % (0.0-0.4) 06/15/23 21:33 Neut % (Auto) 67.4 % (45-73) 06/15/23 21:33 Lymph % (Auto) 22.5 % (20-40) 06/15/23 21:33 [place] % (Auto) 7.8 % (2-11) 06/15/23 21:33 Eos % (Auto) 1.0 % (0-4) 06/15/23 21:33 Baso % (Auto) 1.0 % (0-2) 06/15/23 21:33 Lymph # (Auto) 1.6 X10*3/uL (1.2-4.9) 06/15/23 21:33 [place] # (Auto) 0.6 X10*3/uL (0.1-1.2) 06/15/23 21:33 Eos # (Auto) 0.1 X10*3/uL (0.0-0.4) 06/15/23 21:33 Baso # (Auto) 0.1 X10*3/uL (0.0-0.2) 06/15/23 21:33 Abs Immat Gran (auto) 0.02 X10*3/uL (0.00-0.03) 06/15/23 21:33 Absolute Neuts (auto) 4.8 x10*3/uL (2.0-8.3) 06/15/23 21:33 Absolute Nucleated RBC 0.000 X10*3/uL (0.0-0.012) 06/28/23 09:05 Nucleated RBC % (auto) 0.0 /100WBC (0.0-0.2) 06/28/23 09:05 Smear Path Review SEE NOTE 06/16/23 04:35 Hold Purple Top SEE NOTE 06/23/23 07:01 PT 13.6 SEC (11.1-13.3) H 06/30/23 10:43 INR 1.1 (0.9-1.1) 06/30/23 10:43 VBG pH 7.37 (7.32-7.43) 06/16/23 04:36 VBG pCO2 39 mmHg 06/16/23 04:36 VBG pO2 66 mmHg 06/16/23 04:36 VBG HCO3 23 mmol/L (22-26) 06/16/23 04:36 VBG O2 Saturation Not Reportable 06/16/23 04:36 VBG Base Excess -1.5 mmol/L 06/16/23 04:36 Sodium 141 mmol/L (135-145) 06/30/23 10:43 Potassium 3.5 mmol/L (3.3-5.1) 06/30/23 10:43 Chloride 106 mmol/L (96-108) 06/30/23 10:43 Carbon Dioxide 21 mmol/L (22-29) L 06/30/23 10:43 Anion Gap 18 (12-20) 06/30/23 10:43 BUN 35 mg/dL (9-16) H 06/30/23 10:43 Creatinine 5.58 mg/dL (0.5-1.4) H* 06/30/23 10:43 Estim Creat Clear Calc 13.1 06/30/23 10:43 Estimated GFR 10 06/30/23 10:43 POC Glucose 207 mg/dL (60-115) H 07/08/23 11:19 Random Glucose 148 mg/dL (60-115) H 06/30/23 10:43 Estimat Average Glucose 105 mg/dL 06/24/23 09:48 Hemoglobin A1c % 5.3 % (<6.0) 06/24/23 09:48 Lactic Acid 2.2 mmol/L (0.5-2.0) H* 06/16/23 18:35 Lactic Acid F/U @ 2Hr 2.0 mmol/L (0.5-2.0) 06/16/23 02:46 Calcium 9.8 mg/dL (8.4-10.2) 06/30/23 10:43 Phosphorus 2.9 mg/dL (2.7-4.5) 06/27/23 10:18 Magnesium 2.1 mg/dL (1.6-2.6) 06/16/23 04:34 Iron 21 mcg/dL (45-160) L 06/16/23 04:34 Iron TNP 06/16/23 04:34 TIBC 64 mcg/dL (228-428) L 06/16/23 04:34 TIBC TNP 06/16/23 04:34 % Saturation 33 % (15-50) 06/16/23 04:34 % Saturation TNP 06/16/23 04:34 Unsat Iron Binding 43 ug/dL 06/16/23 04:34 Unsat Iron Binding TNP 06/16/23 04:34 Ferritin 259 ng/mL (20-250) H 06/16/23 04:34 Ferritin TNP 06/16/23 04:34 Total Bilirubin 1.0 mg/dL (0.0-1.0) 06/16/23 04:34 Direct Bilirubin 0.5 mg/dL (0.0-0.5) 06/15/23 21:33 AST 19 U/L (5-37) 06/16/23 04:34 ALT 10 U/L (0-40) 06/16/23 04:34 Alkaline Phosphatase 79 U/L (39-117) 06/16/23 04:34 Ammonia 28 umol/L (13-55) 06/19/23 09:48 Troponin I High Sens 23.0 ng/L (<3.5-35.0) 06/15/23 21:33 Total Protein 5.8 g/dL (6.5-8.0) L 06/16/23 04:34 Albumin 3.7 g/dL (3.5-5.0) 06/16/23 04:34 Urine Color Dark Yellow 06/15/23 21:41 Urine Appearance Turbid 06/15/23 21:41 Urine pH 5.5 (5.0-9.0) 06/15/23 21:41 Ur Specific [place] 1.020 (1.005-1.025) 06/15/23 21:41 Urine Protein 300 (3+) mg/dL (Neg-Trace) H 06/15/23 21:41 Urine Glucose (UA) Negative mg/dL (Negative) 06/15/23 21:41 Urine Ketones Trace mg/dL (Negative) 06/15/23 21:41 Urine Blood Large (3+) (Negative) H 06/15/23 21:41 Urine Nitrite Negative (Negative) 06/15/23 21:41 Ur Leukocyte Esterase Large (3+) (Negative) H 06/15/23 21:41 Urine RBC >20 /HPF (0-2) H 06/15/23 21:41 Urine WBC >50 /HPF (0-5) H 06/15/23 21:41 Ur Squamous Epith Cells 0-2 /HPF (0-2) 06/15/23 21:41 Urine Bacteria 4+ (None Seen) 06/15/23 21:41 Hyaline Casts 6-10 /LPF (0-2) 06/15/23 21:41 Urine Yeast Present 06/15/23 21:41 Peritoneal WBC 0.161 X10*3/uL 06/17/23 11:30 Peritoneal RBC < 0.002 X10*6/uL 06/17/23 11:30 Periton Neutrophils 4 % 06/17/23 11:30 Periton Lymphocytes 31 % 06/17/23 11:30 Peritoneal Monocytes 2 % 06/17/23 11:30 Peritoneal Other Cells 63 % 06/17/23 11:30 Peritoneal Tot Protein 3.2 06/17/23 11:30 Stool Occult Blood NEGATIVE (NEGATIVE) 06/21/23 16:00 Ethyl Alcohol < 10 mg/dL 06/15/23 21:33 Complement C3 28 mg/dL (82-185) L 06/20/23 06:23 Complement C4 7 mg/dL (15-53) L 06/20/23 06:23 Hep Bs Antigen Negative (Negative) 06/27/23 10:18 Hep Bs Antibody NONREACTIVE (Nonreactive) 06/27/23 10:18 Hep B Core Total Ab Nonreactive (Nonreactive) 06/27/23 10:18 Blood Type A Negative 06/16/23 05:40 Antibody Screen NEGATIVE 06/16/23 05:40 Crossmatch See Detail 06/16/23 05:40 Impressions Chest X-Ray 06/15/23 19:50 IMPRESSION: No acute process Head CT 06/15/23 20:31 IMPRESSION: 1. No acute intracranial pathology. 2. Chronic white matter small vessel ischemic changes. Abdomen Ultrasound 06/16/23 08:39 FINDINGS/IMPRESSION: Large amount of ascites in all the 4 abdominal quadrants. Abdomen/Pelvis CT 06/16/23 17:23 IMPRESSION: * Cirrhotic liver and large volume of ascites. * Cholelithiasis without evidence of choledocholithiasis or biliary tract obstruction. * A metallic structure from uncertain source (suspected to be a foreign body) appears to be layering along the posterior wall of the cecum. * Old compression fracture of the L1 vertebral body. Insertion Non-Tunneled Catheter 06/26/23 09:15 IMPRESSION: Placement of a non-tunneled hemodialysis catheter in the right internal jugular vein. PLAN: -The catheter may be used immediately. This procedure was performed by Russ Ramírez PA-C, and directly supervised by Dr. Chilel. Pathology 06/17/23 Diagnosis Ascites, paracentesis: No malignancy identified. See comment. Comment: Moderately cellular specimen consisting of reactive appearing mesothelial cells, macrophages, lymphocytes and blood. The cell block has similar findings. Discharge Plan Discharge Anticipated Discharge Date/Time: 07/08/23 12:50 Patient Disposition: er [facility] Discharge Diagnosis: PENNY/CKD3 now requiring hemodialysis cirrhosis with ascites hepatic encephalopathy seizure Referrals: Lay BRADLEY [Other] - 1 Week [facility] [Other] - 1 Week (HD starts 07/09/23 11:15am SCHEDULE: Saturday, +Saturday [facility] [phone] transport to HD private pay) [facility] [Outside] - 1 Week Sharon Morris MD [Primary Care Provider] - 1 Week Belinda Suazo MD [Physician] - 2 Weeks Discharge Medications: New gabapentin 100 mg Capsule 200 mg PO DAILY Qty: 1 0RF lactulose 20 gram/30 mL Solution 30 g PO BID Qty: 1 0RF Continued sertraline 100 mg Tablet 100 mg PO DAILY Qty: 30 0RF Fleet Enema 19-7 gram/118 mL Enema 118 ml MA DAILY PRN (Reason: Constipation) nystatin 100,000 unit/gram Powder 1 appl TOPICAL DAILY multivitamin Tablet 1 tab PO DAILY acetaminophen 325 mg Tablet 650 mg PO DAILY PRN (Reason: Fever) naltrexone 50 mg Tablet 50 mg PO DAILY thiamine HCl (vitamin B1) 100 mg tablet 100 mg PO DAILY melatonin 3 mg Tablet 3 mg PO BEDTIME pantoprazole 40 mg tablet,delayed release (DR/EC) 40 mg PO DAILY@0600 folic acid 1 mg tablet 1 mg PO DAILY midodrine 10 mg tablet 10 mg PO TID@0600,1200,1800 Xifaxan 550 mg tablet 550 mg PO BID sodium bicarbonate 650 mg Tablet 650 mg PO TID Qty: 90 0RF ondansetron HCl 4 mg tablet 4 mg PO Q4H PRN (Reason: nausea/vomting) magnesium hydroxide [Milk of Magnesia] 400 mg/5 mL Suspension 30 ml PO DAILY PRN (Reason: Constipation) Rx Instructions: for no BM in 3 days bisacodyl 10 mg Suppository 10 mg MA DAILY PRN (Reason: Constipation) Rx Instructions: if milk of magnesia not effective Discontinued gabapentin 100 mg capsule 100 mg PO TID lactulose 10 gram/15 mL solution 45 ml PO TID Rx Instructions: HOLD FOR THREE OR MORE LOOSE STOOLS insulin lispro [Admelog U-100 Insulin lispro] 100 unit/mL Solution See Protocol subcut QIDACHS Qty: 10 0RF Protocol: Insulin Correction Scale Less than or equal to 110 ---- Give (units): 0 111 to 150 Give (units): 0 151 to 200 Give (units): 2 201 to 250 Give (units): 4 251 to 300 Give (units): 6 301 to 350 Give (units): 8 Greater than 350 Give (units): 10 Call MD if Blood Glucose > : 350 Discharge Orders: Discharge Order (Routine); Ordered 07/08/23 Ordered By: Jefferson Gauthier Diet: Low salt diet Activity on Discharge: As tolerated Stand Alone Forms: Patient Portal Discharge page Print Language: Citizen Of [place] Care Plan Goals: renal recovery liver health Health Concerns: PENNY/CKD3 now requiring hemodialysis cirrhosis with ascites hepatic encephalopathy seizure Plan of Treatment: transfer back to [facility] for short-term rehabilitation transport to [facility] dialysis unit every Sat/Sat/Sat for hemodialysis; follow up with Nephrology at dialysis to determine whether you make enough renal recovery to get off dialysis paracentesis can be scheduled with [facility] Radiology as needed for tense ascites: [phone] [address] limit sodium to 1500 mg/d continue rifaximin and lactulose follow up with [facility] Gastroenterology in 2-4 weeks Please follow up with your primary care doctor within 1 week of discharge from short-term rehabilitation. Return to the hospital if you experience recurrent or worsening symptoms. Assessment: See Discharge Summary.
== END 2023-07-08 14:24 | disposition skilled nursing facility (03) | DRG 432 ==
LOC: HO.ED 22:47 → HO.EDOVER 06-16 00:09 → HO.IMC 06-16 17:10
PROVIDERS: Hospitalist; Internal Medicine; Internal Medicine Nephrology; Radiology Vascular & Interventional Radiology; Student in an Organized Health Care Education/Training Program; Admitting Provider Internal Medicine; Emergency Provider Emergency Medicine Emergency Medical Services; PCP Hospitalist; Visit Provider Family Medicine
PROC: 02HV33Z Insertion of Infusion Device into Superior Vena Cava, Percutaneous Approach (ICD-10-PCS; 2023-06-26 08:00)
DX: K70.31 Alcoholic cirrhosis of liver with ascites (principal); I85.11 Secondary esophageal varices with bleeding; N18.6 End stage renal disease; K76.7 Hepatorenal syndrome; N17.0 Acute kidney failure with tubular necrosis; I13.2 Hypertensive heart and chronic kidney disease with heart failure and with stage 5 chronic kidney disease, or end stage renal disease; I50.22 Chronic systolic (congestive) heart failure; K76.6 Portal hypertension; E87.22 Chronic metabolic acidosis; I42.9 Cardiomyopathy, unspecified; B37.49 Other urogenital candidiasis; K76.82 Hepatic encephalopathy; I95.1 Orthostatic hypotension; F32.A Depression, unspecified; F10.90 Alcohol use, unspecified, uncomplicated; R56.9 Unspecified convulsions; K21.9 Gastro-esophageal reflux disease without esophagitis; K72.10 Chronic hepatic failure without coma; Z96.0 Presence of urogenital implants; E11.22 Type 2 diabetes mellitus with diabetic chronic kidney disease; D63.1 Anemia in chronic kidney disease; Z99.2 Dependence on renal dialysis; K31.89 Other diseases of stomach and duodenum; Z87.891 Personal history of nicotine dependence; Z79.899 Other long term (current) drug therapy
CPT/HCPCS: 36415; 36556; 36558; 49083; 70450; 71045; 74176; 76705; 80048; 80053; 80076; 80307; 81001; 82140; 82272; 82728; 82803; 82947; 83036; 83540; 83605; 83735; 84100; 84157; 84484; 85025; 85027; 85610; 86160; 86704; 86706; 86850; 86900; 86901; 86923; 87040; 87070; 87073; 87086; 87088; 87205; 87340; 88112; 88305; 89051; 90999; 93005; 97110; 97163; 97530; 99285; C1750; C1752; C1758; C1769; C9113; J0696; J1644; J2354; J2405; J7120; P9016; P9047

== ENCOUNTER → 2023-06-15 19:55 | Outpatient (BNV) | payer MEDICARE, SELFPAY | PROVIDERS: Admitting Provider Internal Medicine; Emergency Provider Emergency Medicine Emergency Medical Services; Visit Provider Internal Medicine Cardiovascular Disease | DX: R94.31 Abnormal electrocardiogram [ECG] [EKG] (principal) | CPT/HCPCS: 93010 ==

== ENCOUNTER 2023-06-16 00:05 | Outpatient (BNV) | payer MEDICARE, SELFPAY | END 2023-07-01 08:00 | PROVIDERS: Admitting Provider Internal Medicine; Emergency Provider Emergency Medicine Emergency Medical Services; PCP Hospitalist; Visit Provider Physician Assistant Surgical | DX: N17.9 Acute kidney failure, unspecified (principal) | CPT/HCPCS: 36558; 76937; 77001 ==

== ENCOUNTER 2023-06-16 00:05 | Outpatient (BNV) | payer MEDICARE, SELFPAY | END 2023-06-25 08:15 | PROVIDERS: Admitting Provider Internal Medicine; Emergency Provider Emergency Medicine Emergency Medical Services; PCP Internal Medicine; Visit Provider Physician Assistant Surgical | DX: N17.9 Acute kidney failure, unspecified (principal) | CPT/HCPCS: 36556; 76937; 77001 ==

== ENCOUNTER 2023-06-16 00:05 | Outpatient (BNV) | payer MEDICARE, SELFPAY | END 2023-06-17 08:00 | PROVIDERS: Admitting Provider Internal Medicine; Emergency Provider Emergency Medicine Emergency Medical Services; PCP Internal Medicine; Visit Provider Physician Assistant Surgical | DX: K70.31 Alcoholic cirrhosis of liver with ascites (principal) | CPT/HCPCS: 49083 ==

== ENCOUNTER 2023-06-16 00:05 | Outpatient (BNV) | payer MEDICARE, SELFPAY | END 2023-07-01 15:01 | PROVIDERS: Admitting Provider Internal Medicine; Emergency Provider Emergency Medicine Emergency Medical Services; PCP Internal Medicine; Visit Provider Internal Medicine Cardiovascular Disease | DX: R94.31 Abnormal electrocardiogram [ECG] [EKG] (principal) | CPT/HCPCS: 93010 ==

== ENCOUNTER 2023-06-16 00:05 | Outpatient (BNV) | payer MEDICARE, SELFPAY | END 2023-06-28 13:06 | PROVIDERS: Admitting Provider Internal Medicine; Emergency Provider Emergency Medicine Emergency Medical Services; PCP Hospitalist; Visit Provider Physician Assistant Surgical | DX: R18.8 Other ascites (principal) | CPT/HCPCS: 49083 ==

== ENCOUNTER 2023-06-16 00:05 | Outpatient (BNV) | payer MEDICARE, SELFPAY | END 2023-07-04 14:30 | PROVIDERS: Admitting Provider Internal Medicine; Emergency Provider Emergency Medicine Emergency Medical Services; PCP Internal Medicine; Visit Provider Physician Assistant Surgical | DX: R18.8 Other ascites (principal) | CPT/HCPCS: 49083 ==

== ENCOUNTER → 2023-06-16 00:05 | Outpatient (BNV) | payer MEDICARE, SELFPAY | PROVIDERS: Admitting Provider Internal Medicine; Emergency Provider Emergency Medicine Emergency Medical Services; Visit Provider Internal Medicine | DX: K70.31 Alcoholic cirrhosis of liver with ascites (principal); D64.9 Anemia, unspecified; N17.9 Acute kidney failure, unspecified; I42.9 Cardiomyopathy, unspecified; N18.9 Chronic kidney disease, unspecified | CPT/HCPCS: 99223 ==

== ENCOUNTER → 2023-06-16 00:05 | Outpatient (BNV) | payer MEDICARE, SELFPAY | PROVIDERS: Admitting Provider Internal Medicine; Emergency Provider Emergency Medicine Emergency Medical Services; Visit Provider Internal Medicine | DX: N17.9 Acute kidney failure, unspecified (principal); N18.30 Chronic kidney disease, stage 3 unspecified; K76.82 Hepatic encephalopathy; K74.60 Unspecified cirrhosis of liver; Z99.2 Dependence on renal dialysis; R56.9 Unspecified convulsions; R18.8 Other ascites; D64.9 Anemia, unspecified | CPT/HCPCS: 99223; 99232; 99233; 99239; 99499 ==

== ENCOUNTER → 2023-06-16 00:05 | Outpatient (BNV) | payer MEDICARE, SELFPAY | PROVIDERS: Admitting Provider Internal Medicine; Emergency Provider Emergency Medicine Emergency Medical Services; PCP Internal Medicine; Visit Provider Social Worker | DX: F32.0 Major depressive disorder, single episode, mild (principal); G31.84 Mild cognitive impairment of uncertain or unknown etiology | CPT/HCPCS: 99232 ==

== ENCOUNTER → 2023-06-16 00:05 | Outpatient (BNV) | payer MEDICARE, SELFPAY | PROVIDERS: Admitting Provider Internal Medicine; Emergency Provider Emergency Medicine Emergency Medical Services; PCP Internal Medicine; Visit Provider Internal Medicine Hypertension Specialist | DX: N17.9 Acute kidney failure, unspecified (principal) | CPT/HCPCS: 90935; 99223; 99231; 99232; 99499 ==

== ENCOUNTER 2023-07-20 14:28 | Inpatient (IN) | payer MEDICARE, SELFPAY ==
[2023-07-20] VITALS (7 sets, daily range): BP systolic 78–110; BP diastolic 40–63; PULSE 87–102; RESP 16–29; TEMP 36–36.7; O2SAT 92–100; BMI 21.4
--- NOTE | ~2023-07-20 | XR_ITS ---
EXAMINATION: XR CHEST CLINICAL INFORMATION: Possible aspiration. COMPARISON: Chest radiograph dated 07/20/2023. TECHNIQUE: Frontal view of the chest was obtained. FINDINGS: Dual-lumen right-sided central venous catheter in unchanged position at the cavoatrial junction. Retrocardiac opacity, unchanged. No new airspace consolidation. No pleural effusion or pneumothorax. Stable cardiomediastinal silhouette. XR/XR chest 1V IMPRESSION: 1. Retrocardiac opacity, unchanged. No new airspace consolidation. 2. Right-sided central venous catheter in unchanged position.
--- NOTE | ~2023-07-20 | CT_ITS ---
EXAMINATION: CT ABDOMEN AND PELVIS WITH CONTRAST CLINICAL INFORMATION: Abdominal pain and hypotension COMPARISON: CT abdomen and pelvis 06/16/2019 TECHNIQUE: Multidetector volumetric images were obtained from the superior aspect of the liver through the pubic symphysis following administration 85 mL of Omnipaque 350 intravenous contrast. Sagittal and coronal reformatted images were obtained on the technologist's workstation. Oral contrast: No This CT examination was performed using dose optimization techniques as appropriate, variously including the following: *Automated exposure control *Adjustment of mA and/or kV according to patient size (this includes techniques or standardized protocols for targeted exams where dose is matched to indication/reason for exam; i.e. extremities or head) *Use of iterative reconstruction technique DLP: 577 mGy-cm FINDINGS: LUNG BASES: The visualized lung bases are unremarkable. LIVER, GALLBLADDER, AND BILIARY TREE: The liver is shrunken with nodular contour. Numerous small stones layer within the gallbladder. PANCREAS: Unremarkable. SPLEEN: Unremarkable. ADRENAL GLANDS: Unremarkable. KIDNEYS AND URETERS: The kidneys are normal in size, shape, and attenuation. No hydronephrosis, hydroureter, or calculi seen. No perinephric stranding. BLADDER: Decompressed with Gordon catheter in place GASTROINTESTINAL TRACT: Large stool ball in the rectum. Diffuse thickening of the sigmoid colon. Rest of the visualized large and small bowel are normal in caliber. ABDOMINAL WALL: No significant hernia is appreciated. LYMPH NODES: Normal. VASCULAR: The portal veins are patent. The abdominal aorta is normal in caliber. PELVIC VISCERA: The prostate is enlarged. FLUID: Moderate ascites. OSSEOUS STRUCTURES: Healed bilateral rib fractures. Multilevel degenerative changes of lumbar spine. CT/CT abdomen pelvis w IV con IMPRESSION: 1. Cirrhotic liver and moderate ascites. 2. Large stool ball in the rectum. 3. Diffuse thickening of the sigmoid colon, which may be reactive due to the ascites. Fleischner guidelines were followed.
--- NOTE | ~2023-07-20 | XR_ITS ---
EXAMINATION: PORTABLE CHEST 1 VIEW CLINICAL INFORMATION: Shortness of breath. COMPARISON: 06/15/2023. TECHNIQUE: Portable frontal view of the chest was obtained. FINDINGS: Lungs remain hypoexpanded. Persistent obscuration left hemidiaphragm again noted. No overt edema or pneumothorax. Cardiac silhouette remains prominent with vascular calcification in aorta. Right IJ dialysis catheter is now in place with the tip overlying the expected mid right atrium. Left shoulder hardware partially visualized. XR/XR chest 1V IMPRESSION: Hypoexpanded with persistent obscuration of the left hemidiaphragm. No overt edema. Right IJ dialysis catheter in place.
--- NOTE | ~2023-07-20 | US_ITS ---
EXAMINATION: US ABDOMEN LIMITED CLINICAL INFORMATION: Evaluate for paracentesis. COMPARISON: CT abdomen and pelvis July 19 TECHNIQUE: Real-time imaging of the right upper quadrant abdominal viscera. FINDINGS: Limited ultrasound demonstrates a moderate to large volume ascites in the left abdomen. US/US abdomen limited IMPRESSION: Moderate to large volume ascites in the left abdomen. Patient will be scheduled for a Pleurx catheter or paracentesis prior to discharge. This procedure was performed by Russ Ramírez PA-C, and supervised by Dr. Pond
--- NOTE | ~2023-07-20 | US_ITS ---
CLINICAL HISTORY: Recurrent ascites. Patient is transitioning to hospice. PROCEDURES: 1. Limited ultrasound of the abdomen. Permanent images saved in PACS. 2. Ultrasound-guided placement of a tunneled intraperitoneal Pleurx catheter CLINICIANS: Russ Ramírez PA-C MEDICATIONS: -Fentanyl 25 mcg, and lidocaine 1% 10 mL SQ -Antibiotics: None -For additional details, please see nursing flowsheet. COMPLICATIONS: None ESTIMATED BLOOD LOSS: < 5 ml CONTRAST: None SPECIMENS: None PROCEDURE NOTE: The procedure, risks, benefits, and alternatives were carefully explained to the patient and written informed consent was obtained. The patient was placed in the supine position. Ultrasound images of the abdomen were obtained to localize a moderate collection of ascites in the right lower quadrant. An area in the right lower quadrant was prepped and draped in the standard sterile fashion. 10 mL of 1% lidocaine was used to obtain anesthesia of the skin and deeper tissues. A standard small bore needle was introduced to sample fluid and demonstrate a safe access route. There was no evidence of transversing adjacent organs or vascular structures. A small skin incision was made with a #11 blade. Next, an Amplatz needle/catheter was advanced into the peritoneal fluid under ultrasound guidance. A permanent image was saved to PACS. A 0.038 Amplatz wire was advanced through the catheter. Next, an area superior and medial from the peritoneal puncture site was localized. After local anesthesia was administered, a small skin incision was made. A blunt tunneling device was utilized to tunnel the catheter to the peritoneal puncture site. Next, serial dilations were performed over the wire, and a 16 Azeri peel-away sheath was placed into the peritoneum and directed towards the pelvis. The wire was then removed. The catheter was advanced through the peel-away sheath and the sheath was peeled/removed. The catheter was attached to a vacuum suction bottle, and 4.0 L of yellow fluid was removed. The peritoneal puncture site was closed with a 3-0 Vicryl suture. Exofin glue was then administered to the skin. The patient was stable after the procedure and was transferred to the post anesthesia care unit. This procedure was performed under moderate sedation with a dedicated nurse and continuous monitoring of vital signs. US/US insertion pluerx cath Impression: Placement of a tunneled, intraperitoneal Pleurx catheter This procedure was performed by Russ Ramírez PA-C and supervised by Dr. Flynn.
--- NOTE | 2023-07-20 14:46 | ECG_ITS ---
Test Reason : AMS Blood Pressure : / mmHG Vent. Rate : 107 BPM Atrial Rate : 000 BPM P-R Int : 000 ms QRS Dur : 124 ms QT Int : 440 ms P-R-T Axes : 000 -87 084 degrees QTc Int : 587 ms Artifact Sinus tachycardia Left axis deviation Possible Lateral infarct , age undetermined Abnormal ECG When compared with ECG of 01-JUL-2023 15:01, No significant changes seen Referred By: Generic ED Physician Electronically Signed By:Kvng Kennedy
--- NOTE | 2023-07-20 14:58 | ED_ITS ---
HPI - General Adult General Chief complaint: General Medical Stated complaint: VOMITING COMING FROM DIALYSIS Time Seen by Provider: 07/20/23 14:52 Source: patient and EMS Mode of arrival: EMS History of Present Illness HPI narrative: 67-year-old male who is brought in from dialysis by EMS where they had to stop the dialysis because patient was vomiting, reports abdominal pain. Patient also appears to be confused, pauses before answering and unable to fully provide history. Related Data Home Medications ?Medication ?Instructions ?Recorded ?Confirmed acetaminophen 325 mg tablet 650 mg PO DAILY PRN Fever 04/30/23 06/16/23 folic acid 1 mg tablet 1 mg PO DAILY 04/30/23 06/16/23 melatonin 3 mg tablet 3 mg PO BEDTIME Sleep 04/30/23 06/16/23 midodrine 10 mg tablet 10 mg PO TID@0600,1200,1800 04/30/23 06/16/23 multivitamin 1 tab PO DAILY 04/30/23 06/16/23 naltrexone 50 mg tablet 50 mg PO DAILY 04/30/23 06/16/23 pantoprazole 40 mg tablet,delayed 40 mg PO DAILY@0600 04/30/23 06/16/23 release rifaximin 550 mg tablet (Xifaxan) 550 mg PO BID 04/30/23 06/16/23 thiamine HCl (vitamin B1) 100 mg 100 mg PO DAILY 04/30/23 06/16/23 tablet bisacodyl 10 mg rectal suppository 10 mg IA DAILY PRN Constipation 05/20/23 06/16/23 magnesium hydroxide 400 mg/5 mL 30 ml PO DAILY PRN Constipation 05/20/23 06/16/23 oral suspension (Milk of Magnesia) ondansetron HCl 4 mg tablet 4 mg PO Q4H PRN nausea/vomting 05/20/23 06/16/23 nystatin 100,000 unit/gram topical 1 appl topical DAILY 06/16/23 06/16/23 powder sodium phosphates 19 gram-7 118 ml IA DAILY PRN Constipation 06/16/23 06/16/23 gram/118 mL enema (Fleet Enema) Previous Rx's ?Medication ?Instructions ?Recorded sodium bicarbonate 650 mg tablet 650 mg PO TID #90 tabs 05/13/23 sertraline 100 mg tablet 100 mg PO DAILY #30 tabs 04/01/24 gabapentin 100 mg capsule 200 mg (2 x 100 mg) PO DAILY #1 cap 07/08/23 lactulose 20 gram/30 mL oral 30 g (45 mL) PO BID #1 mL 07/08/23 solution Allergies Allergy/AdvReac Type Severity Reaction Status Date / Time lisinopril Allergy Angioedema Verified 07/20/23 14:45 scallops Allergy Angioedema Verified 07/20/23 14:45 Review of Systems 2 Review of Systems: Yes Unobtainable due to mental condition [facility] Past Medical History Source: nursing notes reviewed Medical History MCI (mild cognitive impairment) Acute on chronic renal failure Chronic systolic (congestive) heart failure Acute hepatic encephalopathy Altered mental state Catheter-associated urinary tract infection Depression Cardiomyopathy Ascites due to alcoholic cirrhosis Cirrhosis PENNY (acute kidney injury) Ascites Urinary tract infection GERD (gastroesophageal reflux disease) Hepatic encephalopathy Alcoholic cirrhosis Esophageal stricture Enlarged prostate Chronic indwelling [place] catheter 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 Orthostatic hypotension Chronic liver disease Type 2 diabetes mellitus Social History Social History Household Members: None Housing: [facility] Do you presently have visiting nurse or other home services: No Alcohol intake: former Patient Tobacco Use Status: Former Tobacco user Substance Use Type: Marijuana Advance Directives: Yes Advance Directives on File: Yes Advance Directives Date on File: 05/31/23 Do you have a plan to hurt others: No Plan service: No Physical Exam ED Vital Signs: Vital Signs - 24 hr 07/20/23 14:42 07/20/23 15:52 Temperature 96.8 F Pulse Rate 99 102 H Respiratory Rate 21 H 29 H Blood Pressure 87/49 L 103/40 L Pulse Oximetry 100 Oxygen Delivery Method Room Air BMI result Body Mass Index 21.4 VITAL SIGNS: Reviewed. GENERAL: Chronically ill, elderly, frail, in no acute distress. HEAD: Normocephalic/atraumatic EYES: PERRLA, EOMI EARS: Ext canals without abnormality NOSE: Nares patent bilateral OROPHARYNX: no oral lesions noted, posterior pharynx clear NECK: Supple, no adenopathy LUNGS: Normal breath sounds. No adventitious sounds or accessory muscle use. CARDIOVASCULAR: Regular rate and rhythm without noted murmurs, no JVD or lower extremity edema. ABDOMEN: Soft, no pulsatile mass noted, patient expresses discomfort on palpation but no rebound/peritonitic signs MUSCULOSKELETAL: No tenderness, deformities, or effusions noted on gross inspection. EXTREMITIES: No cyanosis, clubbing or edema. SKIN: Inspection of the skin reveals no rashes NEUROLOGIC: Alert and oriented x 2. Strength and sensation to light touch were grossly intact x 4. Medications Administered Discontinued Medications Generic Name Dose Route Start Last Admin Trade Name Freq PRN Reason Stop Dose Admin Sodium Chloride 500 mls @ 999 mls/hr 07/20/23 15:00 07/20/23 15:40 Ns IV 07/20/23 15:30 Infused .Q31M MIRIAM Infusion Medical Decision Making Medical Decision Making [facility] Narrative: 1500: 67-year-old male with history and clinical presentation multiple medical comorbidities, arrives from dialysis with hypotension, tachycardia, abdominal discomfort. Trial 500 cc of IV fluids with good response of blood pressure, will proceed with CT abdomen pelvis to rule out possible aortic pathology if negative will pursue other causes of encephalopathy and hypotension Blood pressure is responding well to fluids. Signed out to DR Whiting - labs, CT scan - arrived encephalopathic/hypotensive Differential Diagnosis Differential Diagnoses: The differential diagnosis associated with the presentation includes Please see the discussion above Admission/Observation Consideration of admission/observation: Escalation of care including admission/observation considered Please see the discussion above Lab Data 07/20/23 15:42 Independent Interpretation I performed an independent interpretation of an: EKG Interpretation: Tachycardia suspect read as atrial fibrillation due to baseline artifact, HR- 107, RBBB at baseline, no STEMI, Radiology Impression Discussion of test interpretation with radiology: I have reviewed the radiologist's reading. Radiologist Impression: Please see the discussion above Discharge Plan Discharge Clinical Impression: Encephalopathy, Abdominal pain, Hypotension Patient Disposition: Still a Patient Prescriptions: No Action sertraline 100 mg Tablet 100 mg PO DAILY Qty: 30 0RF Fleet Enema 19-7 gram/118 mL Enema 118 ml IA DAILY PRN (Reason: Constipation) nystatin 100,000 unit/gram Powder 1 appl TOPICAL DAILY gabapentin 100 mg Capsule 200 mg PO DAILY Qty: 1 0RF lactulose 20 gram/30 mL Solution 30 g PO BID Qty: 1 0RF multivitamin Tablet 1 tab PO DAILY acetaminophen 325 mg Tablet 650 mg PO DAILY PRN (Reason: Fever) naltrexone 50 mg Tablet 50 mg PO DAILY thiamine HCl (vitamin B1) 100 mg tablet 100 mg PO DAILY melatonin 3 mg Tablet 3 mg PO BEDTIME pantoprazole 40 mg tablet,delayed release (DR/EC) 40 mg PO DAILY@0600 folic acid 1 mg tablet 1 mg PO DAILY midodrine 10 mg tablet 10 mg PO TID@0600,1200,1800 Xifaxan 550 mg tablet 550 mg PO BID sodium bicarbonate 650 mg Tablet 650 mg PO TID Qty: 90 0RF ondansetron HCl 4 mg tablet 4 mg PO Q4H PRN (Reason: nausea/vomting) magnesium hydroxide [Milk of Magnesia] 400 mg/5 mL Suspension 30 ml PO DAILY PRN (Reason: Constipation) Rx Instructions: for no BM in 3 days bisacodyl 10 mg Suppository 10 mg IA DAILY PRN (Reason: Constipation) Rx Instructions: if milk of magnesia not effective Print Language: Portuguese
[2023-07-20] MEDS: 0.9 % Sodium Chloride 500 ML 999 ML IV (15:12)
[2023-07-20] MEDS: iohexoL 350 MG/ML 100 ML INFUS..BTL IV (16:08)
[2023-07-20 16:26] LABS: MANUAL DIFF FLAG NO
[2023-07-20 16:27] LABS: Troponin-I High Sensitivity 22.8 ng/L (<3.5-35.0)
[2023-07-20 16:32] LABS: Alanine Aminotransferase 15 U/L (0-40); Alkaline Phosphatase 149 U/L (39-117); Anion Gap 25 (12-20); Aspartate Amino Transferase 41 U/L (5-37); Blood Urea Nitrogen 15 mg/dL (9-16); Calcium 8.7 mg/dL (8.4-10.2); Carbon Dioxide 19 mmol/L (22-29); Chloride 96 mmol/L (96-108); Creatinine Clr Calc Pharmacy 19.8; Estimated Glomerular Filt Rate 20; Glucose Random 156 mg/dL (60-115); Potassium 3.4 mmol/L (3.3-5.1); Sodium 137 mmol/L (135-145); Total Protein 6.7 g/dL (6.5-8.0)
[2023-07-20 16:37] LABS: Basophils Absolute Auto 0.1 X10*3/uL (0.0-0.2); Basophils Percent Auto 0.6 % (0-2); Eosinophils Percent Auto 0.2 % (0-4); Hematocrit 30.6 % (42.0-52.0); Hemoglobin 10.2 g/dl (14.0-18.0); Imm Gran Abs Auto 0.08 X10*3/uL (0.00-0.03); Imm Gran Pct Auto 0.9 % (0.0-0.4); Lymphocytes Absolute Auto 1.2 X10*3/uL (1.2-4.9); Lymphocytes Percent Auto 12.9 % (20-40); Mean Corpuscular HGB Conc 33.3 g/dl (31.0-36.0); Mean Corpuscular Volume 95.9 fL (80.0-98.0); Mean Platelet Volume 10.1 fL (9.4-12.4); Monocytes Absolute Auto 0.8 X10*3/uL (0.1-1.2); Monocytes Percent Auto 9.3 % (2-11); Neutrophils Absolute Auto 6.8 x10*3/uL (2.0-8.3); Neutrophils Percent Auto 76.1 % (45-73); Red Blood Count 3.19 X10*6/uL (4.60-5.80); Red Cell Distribution Width 16.2 % (11.0-16.0); White Blood Count 8.9 X10*3/uL (4.8-10.8)
[2023-07-20 16:45] LABS: Platelet Count 83 X10*3/uL (160-400)
[2023-07-20 17:21] LABS: Ammonia 51 umol/L (13-55)
[2023-07-20 17:24] LABS: Prothrombin Time 12.6 SEC (11.1-13.3)
--- NOTE | 2023-07-20 17:56 | PM.IMHP ---
History of Present Illness Date of Service: 07/20/23 Chief Complaint: Altered mental status, Hypotension Andres Torres is a 67 years old man with medical history significant for chronic liver disease secondary to alcohol, portal hypertension, recurrent hepatic encephalopathy, HFrEF, type 2 diabetes mellitus, GERD, ESRD new to dialysis on TTS. Patient was having dialysis which was terminated 90 minutes earlier due to altered mental status, and unstable vitals, abdominal pain and vomitting. On presenation was, he was hypoxic and required 6 liters by nasal canula to maintain O2 sat, BP was 87/49, no source of infection, CT of abdomen showed constipation with stool ball. Patient has been hydrated with imprved mental status, and BP is better and has been having bowel movements. O2 saturation is now 100 % on room air. CXR no acute finding. Review of Systems Review of Systems: Gen: no fever Resp: no sob, no cough CV: no chest, no PEÑA, no leg edema GI: + n/v, no abd pain, + constipatin Neuro: No confusion Yes all other systems are reviewed and are negative [facility] Medical History MCI (mild cognitive impairment) Acute on chronic renal failure Chronic systolic (congestive) heart failure Acute hepatic encephalopathy Altered mental state Catheter-associated urinary tract infection Depression Cardiomyopathy Ascites due to alcoholic cirrhosis Cirrhosis PENNY (acute kidney injury) Ascites Urinary tract infection GERD (gastroesophageal reflux disease) Hepatic encephalopathy Alcoholic cirrhosis Esophageal stricture Enlarged prostate Chronic indwelling Gordon catheter 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 Orthostatic hypotension Chronic liver disease Type 2 diabetes mellitus Social History Household Members: None Housing: Assisted Living Facility Do you presently have visiting nurse or other home services: Yes Unable to assess alcohol history related to: Unknown Alcohol intake: former Patient Tobacco Use Status: Former Tobacco user Smoked in Last 30 Days: No Use of substances other than those prescribed or required for medical reasons: No Substance Use Type: Marijuana Currently Displaying Signs/Symptoms of Drug Intoxication Withdrawal: No Have you been hit, kicked, punched, or otherwise hurt by someone within the past year? If so, by whom?: No Do you feel safe in your current relationship?: No Current Relationship Is there a partner from a previous relationship who is making you feel unsafe now?: No Are you made to feel afraid or neglected: No Advance Directives: Yes Advance Directives on File: Yes Advance Directives Date on File: 05/31/23 Do you have a plan to hurt others: No Plan Nutrition Risks: Dental problems Poor oral hygiene: Yes service: No Meds Allergies Allergy/AdvReac Type Severity Reaction Status Date / Time lisinopril Allergy Angioedema Verified 07/20/23 14:45 scallops Allergy Angioedema Verified 07/20/23 14:45 Home Medications ?Medication ?Instructions ?Recorded ?Confirmed ?Last Taken ?Type acetaminophen 325 mg tablet 650 mg PO DAILY PRN Fever Or Pain 04/30/23 07/20/23 Unknown History folic acid 1 mg tablet 1 mg PO DAILY@0904/30/23 07/20/23 Unknown History melatonin 3 mg tablet 3 mg PO BEDTIME Sleep 04/30/23 07/20/23 Unknown History midodrine 10 mg tablet 10 mg PO TID 04/30/23 07/20/23 Unknown History multivitamin 1 tab PO DAILY@0904/30/23 07/20/23 Unknown History naltrexone 50 mg tablet 50 mg PO DAILY@89904/30/23 07/20/23 Unknown History pantoprazole 40 mg tablet,delayed 40 mg PO DAILY@0604/30/23 07/20/23 Unknown History release rifaximin 550 mg tablet (Xifaxan) 550 mg PO BID 04/30/23 07/20/23 Unknown History thiamine HCl (vitamin B1) 100 mg 100 mg PO DAILY@0904/30/23 07/20/23 Unknown History tablet bisacodyl 10 mg rectal suppository 10 mg [place] DAILY PRN Constipation 05/20/23 07/20/23 Unknown History ondansetron HCl 4 mg tablet 4 mg PO Q4H PRN nausea/vomting 05/20/23 07/20/23 Unknown History nystatin 100,000 unit/gram topical 1 appl topical DAILY 06/16/23 07/20/23 Unknown History powder sodium phosphates 19 gram-7 118 ml [place] DAILY PRN Constipation 06/16/23 07/20/23 Unknown History gram/118 mL enema (Fleet Enema) gabapentin 100 mg capsule 200 mg PO DAILY@89907/20/23 07/20/23 Unknown History sertraline 100 mg tablet 100 mg PO DAILY@0900 07/20/23 07/20/23 Unknown History sodium bicarbonate 650 mg tablet 650 mg PO TID@0900,1400,1800 07/20/23 07/20/23 Unknown History Physical Exam Vital Signs and Narrative: Vital Signs: Last Vital Signs Temp 97.5 F 07/20/23 16:31 Pulse 87 07/20/23 16:31 Resp 16 07/20/23 16:31 BP 93/53 L 07/20/23 16:31 Pulse Ox 100 07/20/23 16:31 O2 Del Method Room Air 07/20/23 16:31 BMI result Body Mass Index 21.4 Const: Other: Constitutional: Alert, in no distress, overweight. Mental Status: Oriented to person, place and time. Eyes: Pupils are equal, round and reactive to light. Ear, Nose and Throat: Oropharynx clear, mucous membranes moist. Ears and nose without deforminit Respiratory: Clear to auscultation. No wheezing, rales or rhonchi. Cardiovascular: S1 S2 regular. No murmurs, rubs or gallops. Gastrointestinal: Abdomen soft, non-tender, non-distended. Normal bowel sounds.? Neurologic: Cranial nerves II-XII grossly intact. No focal neurological deficits. Moves all extremities spontaneously.? Skin: No rashes or lesions.? Musculoskeletal: No cyanosis or clubbing. Psychiatric: Normal mood and affect? Results Labs 07/20/23 16:22 07/20/23 15:42 Labs: Laboratory Results - last 24 hr 07/20/23 07/20/23 07/20/23 15:42 16:22 16:28 MCV 95.9 MCH 32.0 MCHC 33.3 RDW 16.2 H Plt Count 83 L D MPV 10.1 Immature Gran % (Auto) 0.9 H Neut % (Auto) 76.1 H Lymph % (Auto) 12.9 L [place] % (Auto) 9.3 Eos % (Auto) 0.2 Baso % (Auto) 0.6 Lymph # (Auto) 1.2 [place] # (Auto) 0.8 Eos # (Auto) 0.0 Baso # (Auto) 0.1 Abs Immat Gran (auto) 0.08 H Absolute Neuts (auto) 6.8 Absolute Nucleated RBC 0.000 Nucleated RBC % (auto) 0.0 PT INR Anion Gap 25 H Estim Creat Clear Calc 19.8 Estimated GFR 20 Random Glucose 156 H Calcium 8.7 D Magnesium 2.0 Total Bilirubin 1.0 AST 41 H ALT 15 Alkaline Phosphatase 149 H Ammonia 51 Troponin I High Sens 22.8 Total Protein 6.7 Albumin 3.0 L 07/20/23 16:59 MCV MCH MCHC RDW Plt Count MPV Immature Gran % (Auto) Neut % (Auto) Lymph % (Auto) [place] % (Auto) Eos % (Auto) Baso % (Auto) Lymph # (Auto) [place] # (Auto) Eos # (Auto) Baso # (Auto) Abs Immat Gran (auto) Absolute Neuts (auto) Absolute Nucleated RBC Nucleated RBC % (auto) PT 12.6 INR 1.0 Anion Gap Estim Creat Clear Calc Estimated GFR Random Glucose Calcium Magnesium Total Bilirubin AST ALT Alkaline Phosphatase Ammonia Troponin I High Sens Total Protein Albumin Imaging Radiologist's Impressions: Impressions Chest X-Ray 07/20/23 15:32 IMPRESSION: Hypoexpanded with persistent obscuration of the left hemidiaphragm. No overt edema. Right IJ dialysis catheter in place. Abdomen/Pelvis CT 07/20/23 16:13 IMPRESSION: 1. Cirrhotic liver and moderate ascites. 2. Large stool ball in the rectum. 3. Diffuse thickening of the sigmoid colon, which may be reactive due to the ascites. Fleischner guidelines were followed. Assessment and Plan (1) Hypotension: Status: Acute (2) Abdominal pain: Status: Acute (3) Encephalopathy: Status: Acute Plan 67/m with ESRD on HD, cirrhosis of liver d/t alcohol brought from dialysis with AMS, N/V , Hypotension AMS/Encephalpathy likely related to transient Hypotension and Hypoxia..ammonia normal, both resolved and is back to his baseline Abdominal pain, N/V, no sings of obstruction on exam or imaging, likely due to constipation, stool impaction he has since had multiple bowel movment in the ED Hypotension--Not source of infection identied, blood pressure now normal. Continue IVF, UA pending chronic HFrEF [30-35%] - no acute decompensation hx DM2 - A1c only 5.3, no meds necessary AUD - naltrexone mood disorder - sertraline VTE ppx - SCDs Full code Quality Stroke Does the patient have a stroke diagnosis?: No VTE Prior VTE?: No VTE Risk Level:: Medical - moderate - high VTE Device Contraindication: Treatment Not Indicated VTE Drug Contraindication: N/A - Med Ordered
--- NOTE | 2023-07-20 18:47 | PC.NURSE ---
pt with large amount of stool output. linens changed, barrier cream applied. for stage 1 skin breakdown to coccyx
[2023-07-20 19:01] LABS: Appearance Urine Turbid; Color Urine Dark Yellow; Glucose Urine UA Negative (Negative); Leukocyte Esterase Urine Large (3+) (Negative); Nitrite Urine Positive (Negative); PH 6.5 (5.0-9.0); UMIC TRIGGER UACC YES; Urine Blood Moderate (2+) (Negative); Urine Ketones Negative (Negative); Urine Protein 300 (3+) mg/dL (Neg-Trace)
[2023-07-20] MEDS: 0.9 % Sodium Chloride 1,000 ML 100 ML IVCONT (19:20)
[2023-07-20 19:30] LABS: Bacteria Urine 4+ (None Seen); Hyaline Casts Urine >20 /LPF (0-2); RBC Urine >20 /HPF (0-2); Squamous Epithelial Cell Urine >20 /HPF (0-2); UACC Culture Trigger YES; WBC Urine >50 /HPF (0-5)
--- NOTE | 2023-07-20 19:32 | PC.NURSE ---
this rn assumed care of pt, pt resting in stretcher, no acute distress noted. respirations even and unlabored, normal sinus on tele 98-99bpm, 100% on room air. pt noted to have small incontinent stool, pt changed and cleaned at this time, rectal temp obtained. pt noted to have redness to bottox, pillow placed under right hip. call frederick within reach.
--- NOTE | 2023-07-20 20:13 | PM.EVENT ---
Event Note Date of Service: 07/20/23 Event Note: UA concerning for UTI. Will initiate emoirix IV abx Time Spent With Patient Time: Total time managing care of this patient today ____ minutes.
[2023-07-20] MEDS: 0.9 % Sodium Chloride 1,000 ML 500 ML IV (20:45)
[2023-07-20 20:55] LABS: Lactic Acid 5.6 mmol/L (0.5-2.0)
--- NOTE | 2023-07-20 21:21 | PHA.MEDREC ---
Pharmacy Consult ? Medication Reconciliation Pharmacy has completed the medication reconciliation, using med list from [facility] in [place]
[2023-07-20] MEDS: cefTRIAXone sodium 1 GM in 0.9 % Sodium Chloride 50 ML IV (21:25)
--- NOTE | 2023-07-20 21:25 | PC.NURSE ---
phlebotomy at bedside, unable to obtain two sets of blood cultures at this time. Per chaz arevalo to hang antibiotics with one set of blood cultures.
--- NOTE | 2023-07-20 22:02 | PM.SEPSBOL4 ---
Sepsis Bolus Exclusion Sepsis Bolus Exclusion CHF/Renal Failure Date of Occurrence: 07/20/23 This patient met severe sepsis criteria due to the following condition(s):: Lactate>=4mmol/L In my clinical judgement the administration of 30 ml/kg of crystalloid would be detrimental to this patient due to the patient's following conditions:: Stage III or IV Chronic Kidney Disease (GFR<30) and Concern for fluid overload Replace the 30 mls/kg with (Zero amount not acceptable and all fluids for severe sepsis must be given at GREATER than 125 mls/hr) *Note: One of the liu must be documented Crystalloids amount given in mls: (rate must be at least 150cc/hr): 500 At a rate of (must be > 125 cchr):: 250
[2023-07-20 22:24] LABS: Reflex Lactate? Lactic Acid Added
[2023-07-20] MEDS: Albumin Human 25 % 100 ML 133.33 ML IV (23:46)
[2023-07-21] MEDS: Albumin Human 25 % 100 ML 133.33 ML IV ×3 (00:40→02:33)
--- NOTE | 2023-07-21 01:20 | PC.NURSE ---
monitor worker informed this nurse of possible accelerated junctional rhythm on telemetry. visualized tracing. No further orders. pt with no complaints lying in bed. call frederick in reach. plan of care ongoing
[2023-07-21 01:28] LABS: Reflex Lactate? 2 Y
--- NOTE | 2023-07-21 01:28 | PC.NURSE ---
this nurse clarified with MD about two orders of two bags albumin each - four bags total. MD confirmed orders.
[2023-07-21 02:22] LABS: ~Lactic Acid-LAB USE ONLY 3.3 mmol/L (0.5-2.0)
[2023-07-21 03:18] VITALS: BP 112/55; PULSE 87; RESP 20; TEMP 36.7; O2SAT 97
[2023-07-21] MEDS: 0.9 % Sodium Chloride 1,000 ML 100 ML IVCONT ×2 (05:35→23:30)
[2023-07-21 07:20] VITALS: BP 98/65; PULSE 86; RESP 18; TEMP 36.4; O2SAT 100
[2023-07-21 07:36] LABS: Cancel Lactic Acid Canceled
[2023-07-21] MEDS: Docusate Sodium 100 MG CAPSULE PO ×2 (07:55→20:02)
[2023-07-21] MEDS: rifAXIMin 550 MG TABLET PO ×2 (07:55→20:02)
--- NOTE | 2023-07-21 09:51 | HO.PM.IMPN ---
Subjective Subjective Date of Service: 07/21/23 Interval History: f/u on sepsis, uti, abd pain, hypoventions interval history: sepsis resolved, hypotension resolved Physical Exam Vital Signs: Vital Signs: Last Vital Signs Temp 97.5 F 07/21/23 07:20 Pulse 86 07/21/23 07:20 Resp 18 07/21/23 07:20 BP 98/65 07/21/23 07:20 Pulse Ox 100 07/21/23 07:20 O2 Del Method Room Air 07/21/23 07:20 BMI result Body Mass Index 21.4 General: AO X 3, no acute distress Resp: CTA bilateral CVS: S1,S2,RRR GI: +BS, NT, no distention Skin: No rash Neuro: motor grossly intact Psych: appropriate affect Objective Data Active Medications Acetaminophen (Acetaminophen 325 Mg Tablet) 650 mg PO Q6H PRN PRN Reason: Pain, Mild (Pain Scale 1-3) Al Hydroxide/Mg Hydroxide (Magnesium Hydrox/Alum Hydrox 30 Ml Oral.Susp) 30 ml PO Q4H PRN PRN Reason: Heartburn/Nausea Docusate Sodium (Docusate Sodium 100 Mg Capsule) 100 mg PO BID [facility] Last Admin: 07/21/23 07:55 Dose: 100 mg Documented By: HEATH Heparin Sodium (Porcine) (Heparin Sodium,Porcine 5,000 Unit/Ml Vial) 5,000 unit SUBCUT Q8H [facility] Sodium Chloride (Ns) 1,000 mls @ 100 mls/hr IVCONT .Q10H [facility] Last Admin: 07/21/23 05:35 Dose: 100 mls/hr Documented By: HIPOLITO Ceftriaxone Sodium 1 gm/ (Sodium Chloride) 50 mls @ 100 mls/hr IV Q24H [facility] Last Admin: 07/20/23 23:18 Dose: Not Given Documented By: HIPOLITO Non-Admin Reason: Duplicate Order Comments: ceftriaxone infused upon pt arrival to unit Melatonin (Melatonin 3 Mg Tablet) 3 mg PO BEDTIME PRN PRN Reason: Insomnia Ondansetron HCl (Ondansetron Hcl 4 Mg/2 Ml Vial) 4 mg IVPUSH Q8H PRN PRN Reason: Nausea and Vomiting Rifaximin (Rifaximin 550 Mg Tablet) 550 mg PO BID [facility] Last Admin: 07/21/23 07:55 Dose: 550 mg Documented By: HEATH Senna (Sennosides 8.6 Mg Tablet) 17.2 mg PO BEDTIME PRN PRN Reason: Constipation Sodium Chloride (0.9 % Sodium Chloride Flush 3 Ml Syringe) 3 ml IVFLUSH QSHIFT MIRIAM Last Admin: 07/21/23 07:55 Dose: Not Given Documented By: HEATH Non-Admin Reason: IV Running Labs 07/20/23 16:22 07/20/23 15:42 Labs: Laboratory Results - last 24 hr 07/20/23 07/20/23 07/20/23 15:42 16:22 16:28 MCV 95.9 MCH 32.0 MCHC 33.3 RDW 16.2 H Plt Count 83 L D MPV 10.1 Immature Gran % (Auto) 0.9 H Neut % (Auto) 76.1 H Lymph % (Auto) 12.9 L [place] % (Auto) 9.3 Eos % (Auto) 0.2 Baso % (Auto) 0.6 Lymph # (Auto) 1.2 [place] # (Auto) 0.8 Eos # (Auto) 0.0 Baso # (Auto) 0.1 Abs Immat Gran (auto) 0.08 H Absolute Neuts (auto) 6.8 Absolute Nucleated RBC 0.000 Nucleated RBC % (auto) 0.0 PT INR Anion Gap 25 H Estim Creat Clear Calc 19.8 Estimated GFR 20 Random Glucose 156 H Lactic Acid Lactic Acid F/U @ 2Hr Lactic Acid F/U @ 4Hr Calcium 8.7 D Magnesium 2.0 Total Bilirubin 1.0 AST 41 H ALT 15 Alkaline Phosphatase 149 H Ammonia 51 Troponin I High Sens 22.8 Total Protein 6.7 Albumin 3.0 L Urine Color Urine Appearance Urine pH Ur Specific [place] Urine Protein Urine Glucose (UA) Urine Ketones Urine Blood Urine Nitrite Ur Leukocyte Esterase Urine RBC Urine WBC Ur Squamous Epith Cells Urine Bacteria Hyaline Casts 07/20/23 07/20/23 07/20/23 16:59 18:50 20:20 MCV MCH MCHC RDW Plt Count MPV Immature Gran % (Auto) Neut % (Auto) Lymph % (Auto) [place] % (Auto) Eos % (Auto) Baso % (Auto) Lymph # (Auto) [place] # (Auto) Eos # (Auto) Baso # (Auto) Abs Immat Gran (auto) Absolute Neuts (auto) Absolute Nucleated RBC Nucleated RBC % (auto) PT 12.6 INR 1.0 Anion Gap Estim Creat Clear Calc Estimated GFR Random Glucose Lactic Acid 5.6 H* Lactic Acid F/U @ 2Hr Lactic Acid F/U @ 4Hr Calcium Magnesium Total Bilirubin AST ALT Alkaline Phosphatase Ammonia Troponin I High Sens Total Protein Albumin Urine Color Dark Yellow Urine Appearance Turbid Urine pH 6.5 Ur Specific [place] 1.020 Urine Protein 300 (3+) H Urine Glucose (UA) Negative Urine Ketones Negative Urine Blood Moderate (2+) H Urine Nitrite Positive H Ur Leukocyte Esterase Large (3+) H Urine RBC >20 H Urine WBC >50 H Ur Squamous Epith Cells >20 Urine Bacteria 4+ Hyaline Casts >20 07/20/23 07/21/23 23:24 01:44 MCV MCH MCHC RDW Plt Count MPV Immature Gran % (Auto) Neut % (Auto) Lymph % (Auto) [place] % (Auto) Eos % (Auto) Baso % (Auto) Lymph # (Auto) [place] # (Auto) Eos # (Auto) Baso # (Auto) Abs Immat Gran (auto) Absolute Neuts (auto) Absolute Nucleated RBC Nucleated RBC % (auto) PT INR Anion Gap Estim Creat Clear Calc Estimated GFR Random Glucose Lactic Acid Lactic Acid F/U @ 2Hr 5.0 H* Lactic Acid F/U @ 4Hr 3.3 H* Calcium Magnesium Total Bilirubin AST ALT Alkaline Phosphatase Ammonia Troponin I High Sens Total Protein Albumin Urine Color Urine Appearance Urine pH Ur Specific [place] Urine Protein Urine Glucose (UA) Urine Ketones Urine Blood Urine Nitrite Ur Leukocyte Esterase Urine RBC Urine WBC Ur Squamous Epith Cells Urine Bacteria Hyaline Casts Microbiology Microbiology Results: Microbiology 07/20/23 18:50 Urine Culture - Preliminary Urine Catheterized - Gordon Catheter Culture in progress. Assessment and Plan (1) Acute UTI: Status: Acute (2) Sepsis: Status: Acute (3) Hypotension: Status: Acute (4) Abdominal pain: Status: Acute Plan 67/m with ESRD on HD, cirrhosis of liver d/t alcohol brought from dialysis with AMS, N/V , Hypotension AMS/Encephalpathy d/t UTI -treat underlying UTI with Ceftriaxone Severe sepsis d/t UTI, sepsis resovled -s/p IVF per sepsis, continue IVF, follow culture Hypotension--resolved. Abd pain, likely from constipation, resolved and has had bowel movement chronic HFrEF 30-35% - no acute decompensation hx DM2 - A1c only 5.3, no meds necessary AUD - naltrexone mood disorder - sertraline VTE ppx - SCDs, add heparin Full code Quality Stroke Does the patient have a stroke diagnosis?: No VTE Prior VTE?: No VTE Risk Level:: Medical - moderate - high VTE Device Contraindication: Treatment Not Indicated VTE Drug Contraindication: N/A - Med Ordered
[2023-07-21] MEDS: Heparin Sodium,Porcine 5,000 UNIT/ML VIAL 5000 UNIT SUBCUT ×2 (10:39→16:43)
[2023-07-21 11:18] VITALS: BP 96/60; PULSE 84; RESP 18; TEMP 36.4; O2SAT 97
--- NOTE | 2023-07-21 13:17 | ECG_ITS ---
Test Reason : RHYTHM CHECK Blood Pressure : / mmHG Vent. Rate : 081 BPM Atrial Rate : 000 BPM P-R Int : 000 ms QRS Dur : 152 ms QT Int : 518 ms P-R-T Axes : 000 -64 101 degrees QTc Int : 601 ms Normal sinus rhythm with 1st degree A-V block Left axis deviation Non-specific intra-ventricular conduction block Minimal voltage criteria for LVH, may be normal variant ( Brady product ) Lateral infarct , age undetermined Inferior infarct , age undetermined Abnormal ECG When compared with ECG of 20-JUL-2023 14:47, Poor data quality in current ECG precludes serial comparison Referred By: Dusty Jurado Electronically Signed By:ANYI DURAN MD
--- NOTE | 2023-07-21 14:56 | MHC.CM.PN ---
Addendum entered by Dayan Gutierrez 07/22/23 10:15: CM SPOKE TO PTS S/O, MAAME, THIS MORNING SHE REPORTS SHE IS WORKING ON TRANSPORTATION FOR THE PT SHE SAYS ONCE THE PTS NEED FOR HD IS DETERMINED TO BE PERMANENT, HE MAY BE ELIGIBLE FOR TRANSPORT COVERED BY HIS INSURANCE CURRENTLY THEY ARE PAYING FOR BLS TRANSPORT TO AND FROM [facility] SHE REPORTS SHE ALSO NEEDS TO KNOW IF SHE SHOULD PUT A HOLD ON THE TRANSPORT AND HOW SOON AFTER DC HE SHOULD START OP HD CM INFORMED HER SHE SHOULD NOT HOLD TRANSPORT PT COULD DC TODAY AFTER HD AND WOULD NEED TO RESUME HIS USUAL SCHEDULE SHE IS ALSO AWARE THE HOSPITALIST WILL SPEAK WITH NEPHRO ABOUT DETERMINING THE HD PERMANENT CM WILL INFORM HER ONCE THE DC IS CONFIRMED Original Note: PT IS A LTC RESIDENT OF [facility] (PRIVATE PAY) PT IS BED BOUND AT BASELINE HCP AND MOLST ON FILE PCP: DONNA CHISHOLM IMM DELIVERED DCP: RETURN TO [facility] VIA BLS
[2023-07-21 15:32] VITALS: BP 93/61; PULSE 94; RESP 17; TEMP 36.4; O2SAT 95
[2023-07-21] MEDS: Lactulose 20 GM/30 ML SOLUTION 30 GM PO ×2 (16:40→20:02)
[2023-07-21] MEDS: Omeprazole 20 MG CAPSULE.DR PO (16:41)
[2023-07-21] MEDS: Midodrine HCl 5 MG TABLET PO (16:41)
[2023-07-21] MEDS: Sodium Bicarbonate 650 MG TABLET PO (17:09)
[2023-07-21 20:00] VITALS: BP 102/48; PULSE 79; RESP 16; TEMP 36.5; O2SAT 94
[2023-07-21] MEDS: Melatonin 3 MG TABLET PO (20:02)
[2023-07-21] MEDS: Midodrine HCl 10 MG TABLET PO (20:02)
[2023-07-21] MEDS: cefTRIAXone sodium 1 GM in 0.9 % Sodium Chloride 50 ML IV (22:31)
[2023-07-21] MEDS: 0.9 % Sodium Chloride Flush 3 ML SYRINGE IVFLUSH (22:32)
[2023-07-22] VITALS: BP 98/53; PULSE 84; RESP 16; TEMP 36.7; O2SAT 96
[2023-07-22] MEDS: Heparin Sodium,Porcine 5,000 UNIT/ML VIAL 5000 UNIT SUBCUT ×2 (02:09→09:56)
[2023-07-22 03:35] VITALS: BP 102/54; PULSE 64; RESP 16; TEMP 36.8; O2SAT 94
[2023-07-22] MEDS: Omeprazole 20 MG CAPSULE.DR PO (05:41)
[2023-07-22 07:24] VITALS: BP 95/55; PULSE 78; RESP 20; TEMP 36.1; O2SAT 95
[2023-07-22] MEDS: Multivitamin TABLET 1 TAB PO (09:53)
[2023-07-22] MEDS: Lactulose 20 GM/30 ML SOLUTION 30 GM PO (09:53)
[2023-07-22] MEDS: rifAXIMin 550 MG TABLET PO ×2 (09:53→20:46)
[2023-07-22] MEDS: Gabapentin 100 MG CAPSULE 200 MG PO (09:53)
[2023-07-22] MEDS: Thiamine HCL 100 MG TABLET PO (09:53)
[2023-07-22] MEDS: Midodrine HCl 10 MG TABLET PO ×3 (09:53→20:45)
[2023-07-22] MEDS: 0.9 % Sodium Chloride Flush 3 ML SYRINGE IVFLUSH ×3 (09:55→20:48)
[2023-07-22] MEDS: Naltrexone HCl 50 MG TABLET PO (09:55)
[2023-07-22] MEDS: Docusate Sodium 100 MG CAPSULE PO (09:55)
[2023-07-22] MEDS: Folic Acid 1 MG TABLET PO (09:55)
[2023-07-22] MEDS: Sertraline HCL 100 MG TABLET PO (09:55)
[2023-07-22] MEDS: 0.9 % Sodium Chloride 1,000 ML 100 ML IVCONT (09:56)
[2023-07-22] MEDS: Sodium Bicarbonate 650 MG TABLET PO ×3 (10:11→16:55)
[2023-07-22 10:48] VITALS: BP 108/57; PULSE 77; RESP 20; TEMP 36.1; O2SAT 97
--- NOTE | 2023-07-22 12:06 | HO.PM.IMPN ---
Subjective Subjective Date of Service: 07/22/23 Interval History: f/u on sepsis, uti, abd pain, hypotension interval history: intermittent low bp not new, urine cultur growing gram positive cocci Physical Exam Vital Signs: Vital Signs: Last Vital Signs Temp 96.9 F 07/22/23 10:48 Pulse 77 07/22/23 10:48 Resp 20 07/22/23 10:48 BP 108/57 L 07/22/23 10:48 Pulse Ox 97 07/22/23 10:48 O2 Del Method Room Air 07/22/23 10:48 BMI result Body Mass Index 21.4 General: oriented to self, and place, no acute distress Resp: CTA bilateral CVS: S1,S2,RRR GI: +BS, NT, no distention Skin: No rash Neuro: motor grossly intact Psych: appropriate affect Objective Data Active Medications Acetaminophen (Acetaminophen 325 Mg Tablet) 650 mg PO Q6H PRN PRN Reason: Pain, Mild (Pain Scale 1-3) Acetaminophen (Acetaminophen 325 Mg Tablet) 650 mg PO DAILY PRN PRN Reason: Fever Or Pain Al Hydroxide/Mg Hydroxide (Magnesium Hydrox/Alum Hydrox 30 Ml Oral.Susp) 30 ml PO Q4H PRN PRN Reason: Heartburn/Nausea Bisacodyl (Bisacodyl 10 Mg Supp.Rect) 10 mg NE DAILY PRN PRN Reason: Constipation Docusate Sodium (Docusate Sodium 100 Mg Capsule) 100 mg PO BID [facility] Last Admin: 07/22/23 09:55 Dose: 100 mg Documented By: LIEN Folic Acid (Folic Acid 1 Mg Tablet) 1 mg PO DAILY@0900 [facility] Last Admin: 07/22/23 09:55 Dose: 1 mg Documented By: LIEN Gabapentin (Gabapentin 100 Mg Capsule) 200 mg PO DAILY@0900 [facility] Last Admin: 07/22/23 09:53 Dose: 200 mg Documented By: LIEN Heparin Sodium (Porcine) (Heparin Sodium,Porcine 5,000 Unit/Ml Vial) 5,000 unit SUBCUT Q8H [facility] Last Admin: 07/22/23 09:56 Dose: 5,000 unit Documented By: LIEN Sodium Chloride (Ns) 1,000 mls @ 100 mls/hr IVCONT .Q10H [facility] Last Admin: 07/22/23 09:56 Dose: 100 mls/hr Documented By: LIEN Ceftriaxone Sodium 1 gm/ (Sodium Chloride) 50 mls @ 100 mls/hr IV Q24H [facility] Last Infusion: 07/21/23 23:02 Dose: Infused Documented By: LO Lactulose (Lactulose 20 Gm/30 Ml Solution) 30 gm PO BID [facility] Last Admin: 07/22/23 09:53 Dose: 30 gm Documented By: LIEN Melatonin (Melatonin 3 Mg Tablet) 3 mg PO BEDTIME [facility] Last Admin: 07/21/23 20:02 Dose: 3 mg Documented By: LO Midodrine (Midodrine Hcl 10 Mg Tablet) 10 mg PO TID [facility] Last Admin: 07/22/23 09:53 Dose: 10 mg Documented By: LIEN Multivitamins/Vitamin C (Multivitamin Tablet) 1 tab PO DAILY@0900 [facility] Last Admin: 07/22/23 09:53 Dose: 1 tab Documented By: LIEN Naltrexone HCl (Naltrexone Hcl 50 Mg Tablet) 50 mg PO DAILY@0900 [facility] Last Admin: 07/22/23 09:55 Dose: 50 mg Documented By: LIEN Omeprazole (Omeprazole 20 Mg Capsule.Dr) 20 mg PO DAILY@0600 [facility] Last Admin: 07/22/23 05:41 Dose: 20 mg Documented By: LO Ondansetron HCl (Ondansetron Hcl 4 Mg/2 Ml Vial) 4 mg IVPUSH Q8H PRN PRN Reason: Nausea and Vomiting Rifaximin (Rifaximin 550 Mg Tablet) 550 mg PO BID [facility] Last Admin: 07/22/23 09:53 Dose: 550 mg Documented By: LIEN Senna (Sennosides 8.6 Mg Tablet) 17.2 mg PO BEDTIME PRN PRN Reason: Constipation Sertraline HCl (Sertraline Hcl 100 Mg Tablet) 100 mg PO DAILY@0900 [facility] Last Admin: 07/22/23 09:55 Dose: 100 mg Documented By: LIEN Sodium Bicarbonate (Sodium Bicarbonate 650 Mg Tablet) 650 mg PO TID@0900,1400,1800 [facility] Last Admin: 07/22/23 10:11 Dose: 650 mg Documented By: LIEN Sodium Biphosphate/Sodium Phosphate (Sodium Phosphate,[place]-Dibasic 133 Ml Enema) 118 ml NE DAILY PRN PRN Reason: Constipation Sodium Chloride (0.9 % Sodium Chloride Flush 3 Ml Syringe) 3 ml IVFLUSH QSHIFT [facility] Last Admin: 07/22/23 09:55 Dose: 3 ml Documented By: LIEN Thiamine HCl (Thiamine Hcl 100 Mg Tablet) 100 mg PO DAILY@0900 [facility] Last Admin: 07/22/23 09:53 Dose: 100 mg Documented By: LIEN Labs 07/20/23 16:22 07/20/23 15:42 Microbiology Microbiology Results: Microbiology 07/20/23 18:50 Urine Culture - Preliminary Urine Catheterized - Gordon Catheter Gram positive cocci 07/20/23 20:31 Blood Culture - Final Blood - Venous 07/20/23 21:21 Blood Culture - Preliminary Blood - Venous No growth after 24 hours. Assessment and Plan (1) Sepsis: Status: Acute (2) Acute UTI: Status: Acute Plan 67/m with ESRD on HD, cirrhosis of liver d/t alcohol brought from dialysis with AMS, N/V , Hypotension AMS/Encephalpathy d/t UTI -treat underlying UTI with Ceftriaxone and doxy Severe sepsis d/t UTI, sepsis resovled -s/p IVF per sepsis, continue IVF, urine culture = gram positive cocci, sensitivity pending Hypotension--this a chronic issues and is on high dose of midodrine 10 tid and making it challenging to dialysis Abd pain, likely from constipation, resolved and has had bowel movement CKD now ESRD on permanent dialsysis now, unfortunately doesn't tolerate dialysis d/t hypotension.. Dialysis TTS chronic HFrEF 30-35% - no acute decompensation hx DM2 - A1c only 5.3, no meds necessary AUD - naltrexone mood disorder - sertraline VTE ppx - SCDs, add heparin Full code neeed for inpatient: Hypotension, UTI need for IV Abx and acute dialysis Quality Stroke Does the patient have a stroke diagnosis?: No VTE Prior VTE?: No VTE Risk Level:: Medical - moderate - high VTE Device Contraindication: Treatment Not Indicated VTE Drug Contraindication: N/A - Med Ordered
[2023-07-22] MEDS: Doxycycline Hyclate 100 MG in 0.9 % Sodium Chloride 250 ML 166.67 MG IV (13:11)
--- NOTE | 2023-07-22 13:33 | P.CONNP_ITS ---
History of Present Illness Reason for Consult Consult date: 07/22/23 Chief Complaint Chief complaint: Hypotension, AMS History of Present Illness Narrative: 67 years old man with medical history significant for chronic liver disease secondary to alcohol, portal hypertension, recurrent hepatic encephalopathy, HFrEF, type 2 diabetes mellitus, GERD, ESRD new to dialysis on TTS. Patient was having dialysis which was terminated 90 minutes earlier due to altered mental status, and unstable vitals, abdominal pain and vomitting. On presenation was, he was hypoxic and required 6 liters by nasal canula to maintain O2 sat, BP was 87/49, no source of infection, CT of abdomen showed constipation with stool ball. Patient has been hydrated with imprved mental status, and BP is better and has been having bowel movements. O2 saturation is now 100 % on room air. Unable to tolerate dialysis on 07/20/23 due to low BP Review of Systems Review of Systems Yes Unobtainable due to mental status PMFSH Past Medical History Medical History MCI (mild cognitive impairment) Acute on chronic renal failure Chronic systolic (congestive) heart failure Acute hepatic encephalopathy Altered mental state Catheter-associated urinary tract infection Depression Cardiomyopathy Ascites due to alcoholic cirrhosis Cirrhosis PENNY (acute kidney injury) Ascites Urinary tract infection GERD (gastroesophageal reflux disease) Hepatic encephalopathy Alcoholic cirrhosis Esophageal stricture Enlarged prostate Chronic indwelling Gordon catheter 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 Orthostatic hypotension Chronic liver disease Type 2 diabetes mellitus Social History Social History Household Members: None Housing: Assisted Living Facility Do you presently have visiting nurse or other home services: Yes Unable to assess alcohol history related to: Unknown Alcohol intake: former Patient Tobacco Use Status: Former Tobacco user Smoked in Last 30 Days: No Use of substances other than those prescribed or required for medical reasons: No Substance Use Type: Marijuana Currently Displaying Signs/Symptoms of Drug Intoxication Withdrawal: No Have you been hit, kicked, punched, or otherwise hurt by someone within the past year? If so, by whom?: No Do you feel safe in your current relationship?: No Current Relationship Is there a partner from a previous relationship who is making you feel unsafe now?: No Are you made to feel afraid or neglected: No Advance Directives: Yes Advance Directives on File: Yes Advance Directives Date on File: 05/31/23 Do you have a plan to hurt others: No Plan Nutrition Risks: Dental problems Poor oral hygiene: Yes service: No Meds Allergies Allergy/AdvReac Type Severity Reaction Status Date / Time lisinopril Allergy Angioedema Verified 07/20/23 14:45 scallops Allergy Angioedema Verified 07/20/23 14:45 Active Medications: Current Medications Acetaminophen (Acetaminophen 325 Mg Tablet) 650 mg PO Q6H PRN PRN Reason: Pain, Mild (Pain Scale 1-3) Acetaminophen (Acetaminophen 325 Mg Tablet) 650 mg PO DAILY PRN PRN Reason: Fever Or Pain Al Hydroxide/Mg Hydroxide (Magnesium Hydrox/Alum Hydrox 30 Ml Oral.Susp) 30 ml PO Q4H PRN PRN Reason: Heartburn/Nausea Bisacodyl (Bisacodyl 10 Mg Supp.Rect) 10 mg [place] DAILY PRN PRN Reason: Constipation Docusate Sodium (Docusate Sodium 100 Mg Capsule) 100 mg PO BID [facility] Last Admin: 07/22/23 09:55 Dose: 100 mg Folic Acid (Folic Acid 1 Mg Tablet) 1 mg PO DAILY@0900 [facility] Last Admin: 07/22/23 09:55 Dose: 1 mg Gabapentin (Gabapentin 100 Mg Capsule) 200 mg PO DAILY@0900 [facility] Last Admin: 07/22/23 09:53 Dose: 200 mg Heparin Sodium (Porcine) (Heparin Sodium,Porcine 5,000 Unit/Ml Vial) 5,000 unit SUBCUT Q8H [facility] Last Admin: 07/22/23 09:56 Dose: 5,000 unit Sodium Chloride (Ns) 1,000 mls @ 100 mls/hr IVCONT .Q10H [facility] Last Admin: 07/22/23 09:56 Dose: 100 mls/hr Ceftriaxone Sodium 1 gm/ (Sodium Chloride) 50 mls @ 100 mls/hr IV Q24H [facility] Last Infusion: 07/21/23 23:02 Dose: Infused Doxycycline Hyclate 100 mg/ (Sodium Chloride) 250 mls @ 166.67 mls/hr IV Q12H [facility] Last Admin: 07/22/23 13:11 Dose: 166.67 mls/hr Lactulose (Lactulose 20 Gm/30 Ml Solution) 30 gm PO BID [facility] Last Admin: 07/22/23 09:53 Dose: 30 gm Melatonin (Melatonin 3 Mg Tablet) 3 mg PO BEDTIME [facility] Last Admin: 07/21/23 20:02 Dose: 3 mg Midodrine (Midodrine Hcl 10 Mg Tablet) 10 mg PO TID [facility] Last Admin: 07/22/23 09:53 Dose: 10 mg Multivitamins/Vitamin C (Multivitamin Tablet) 1 tab PO DAILY@0900 [facility] Last Admin: 07/22/23 09:53 Dose: 1 tab Naltrexone HCl (Naltrexone Hcl 50 Mg Tablet) 50 mg PO DAILY@0900 [facility] Last Admin: 07/22/23 09:55 Dose: 50 mg Omeprazole (Omeprazole 20 Mg Capsule.Dr) 20 mg PO DAILY@0600 [facility] Last Admin: 07/22/23 05:41 Dose: 20 mg Ondansetron HCl (Ondansetron Hcl 4 Mg/2 Ml Vial) 4 mg IVPUSH Q8H PRN PRN Reason: Nausea and Vomiting Rifaximin (Rifaximin 550 Mg Tablet) 550 mg PO BID [facility] Last Admin: 07/22/23 09:53 Dose: 550 mg Senna (Sennosides 8.6 Mg Tablet) 17.2 mg PO BEDTIME PRN PRN Reason: Constipation Sertraline HCl (Sertraline Hcl 100 Mg Tablet) 100 mg PO DAILY@0900 [facility] Last Admin: 07/22/23 09:55 Dose: 100 mg Sodium Bicarbonate (Sodium Bicarbonate 650 Mg Tablet) 650 mg PO TID@0900,1400,1800 [facility] Last Admin: 07/22/23 10:11 Dose: 650 mg Sodium Biphosphate/Sodium Phosphate (Sodium Phosphate,[place]-Dibasic 133 Ml Enema) 118 ml [place] DAILY PRN PRN Reason: Constipation Sodium Chloride (0.9 % Sodium Chloride Flush 3 Ml Syringe) 3 ml IVFLUSH QSHIFT [facility] Last Admin: 07/22/23 09:55 Dose: 3 ml Thiamine HCl (Thiamine Hcl 100 Mg Tablet) 100 mg PO DAILY@0900 [facility] Last Admin: 07/22/23 09:53 Dose: 100 mg Home Medications ?Medication ?Instructions ?Recorded ?Confirmed ?Last Taken ?Type acetaminophen 325 mg tablet 650 mg PO DAILY PRN Fever Or Pain 04/30/23 07/20/23 Unknown History folic acid 1 mg tablet 1 mg PO DAILY@0900 04/30/23 07/20/23 Unknown History melatonin 3 mg tablet 3 mg PO BEDTIME Sleep 04/30/23 07/20/23 Unknown History midodrine 10 mg tablet 10 mg PO TID 04/30/23 07/20/23 Unknown History multivitamin 1 tab PO DAILY@0904/30/23 07/20/23 Unknown History naltrexone 50 mg tablet 50 mg PO DAILY@0904/30/23 07/20/23 Unknown History pantoprazole 40 mg tablet,delayed 40 mg PO DAILY@0600 04/30/23 07/20/23 Unknown History release rifaximin 550 mg tablet (Xifaxan) 550 mg PO BID 04/30/23 07/20/23 Unknown History thiamine HCl (vitamin B1) 100 mg 100 mg PO DAILY@0904/30/23 07/20/23 Unknown History tablet bisacodyl 10 mg rectal suppository 10 mg OK DAILY PRN Constipation 05/20/23 07/20/23 Unknown History ondansetron HCl 4 mg tablet 4 mg PO Q4H PRN nausea/vomting 05/20/23 07/20/23 Unknown History nystatin 100,000 unit/gram topical 1 appl topical DAILY 06/16/23 07/20/23 Unknown History powder sodium phosphates 19 gram-7 118 ml OK DAILY PRN Constipation 06/16/23 07/20/23 Unknown History gram/118 mL enema (Fleet Enema) gabapentin 100 mg capsule 200 mg PO DAILY@0907/20/23 07/20/23 Unknown History sertraline 100 mg tablet 100 mg PO DAILY@0907/20/23 07/20/23 Unknown History sodium bicarbonate 650 mg tablet 650 mg PO TID@0900,1400,1800 07/20/23 07/20/23 Unknown History Physical Exam Vital Signs: Last Vital Signs Temp 96.9 F 07/22/23 10:48 Pulse 77 07/22/23 10:48 Resp 20 07/22/23 10:48 BP 108/57 L 07/22/23 10:48 Pulse Ox 97 07/22/23 10:48 O2 Del Method Room Air 07/22/23 10:48 BMI result Body Mass Index 21.4 Const General: ill appearing Neck Neck: Yes supple Resp Auscultation: clear to auscultation bilaterally Cardio Palpation: no palpable S3 Heart sounds: no rubs GI Palpation (GI): Soft to palpation Auscultation: normal bowel sounds Neuro Motor exam (neuro): no asterixis Results Lab Results 07/20/23 16:22 07/20/23 15:42 Lab results: Chemistry 07/20/23 15:42 Sodium 137 Potassium 3.4 Carbon Dioxide 19 L BUN 15 Creatinine 3.17 H Calcium 8.7 D Hematology 07/20/23 16:22 WBC 8.9 Hgb 10.2 L Plt Count 83 L D Urinalysis 07/20/23 18:50 Urine Color Dark Yellow Urine Appearance Turbid Urine pH 6.5 Ur Specific [place] 1.020 Urine Protein 300 (3+) H Urine Glucose (UA) Negative Urine Ketones Negative Urine Blood Moderate (2+) H Urine Nitrite Positive H Ur Leukocyte Esterase Large (3+) H Urine RBC >20 H Urine WBC >50 H Ur Squamous Epith Cells >20 Hyaline Casts >20 Assessment and Plan (1) Renal failure syndrome: Status: Acute Plan Renal failure in a setting of Cirrhosis Dialysis dependent for the past 3 weeks Unable to tolerate dialysis due to low BP despite high dose of Midodrine Failure to thrive UTI - agree with antibiotic coverage Will plan to dialyze tomorrow 07/23/23 and reassess Need to discuss goals of therapy Procedures Date of Service Date of Service: 07/22/23
[2023-07-22 14:49] VITALS: BP 105/55; PULSE 77; RESP 20; TEMP 36.5; O2SAT 98
[2023-07-22 20:00] VITALS: BP 102/52; PULSE 79; RESP 18; TEMP 36.2; O2SAT 98
[2023-07-22] MEDS: cefTRIAXone sodium 1 GM in 0.9 % Sodium Chloride 50 ML IV (20:45)
[2023-07-22] MEDS: Melatonin 3 MG TABLET PO (20:46)
--- NOTE | 2023-07-22 21:05 | PC.NURSE ---
lacatulose and colace held per MD order. patient has had 3 loose stools today. see orders for confirmation.
[2023-07-23] VITALS (10 sets, daily range): BP systolic 87–104; BP diastolic 48–57; PULSE 70–86; RESP 15–18; TEMP 36.1–36.8; O2SAT 95–99
[2023-07-23] MEDS: Doxycycline Hyclate 100 MG in 0.9 % Sodium Chloride 250 ML 166.67 MG IV ×2 (00:06→14:29)
[2023-07-23] MEDS: Omeprazole 20 MG CAPSULE.DR PO (05:38)
[2023-07-23] MEDS: Folic Acid 1 MG TABLET PO (07:47)
[2023-07-23] MEDS: Sodium Bicarbonate 650 MG TABLET PO ×3 (07:47→17:45)
[2023-07-23] MEDS: rifAXIMin 550 MG TABLET PO ×2 (07:47→21:02)
[2023-07-23] MEDS: Naltrexone HCl 50 MG TABLET PO (07:47)
[2023-07-23] MEDS: Sertraline HCL 100 MG TABLET PO (07:47)
[2023-07-23] MEDS: Multivitamin TABLET 1 TAB PO (07:47)
[2023-07-23] MEDS: Gabapentin 100 MG CAPSULE 200 MG PO (07:47)
[2023-07-23] MEDS: Midodrine HCl 10 MG TABLET PO ×3 (07:48→21:03)
[2023-07-23] MEDS: 0.9 % Sodium Chloride Flush 3 ML SYRINGE IVFLUSH ×3 (07:48→21:02)
[2023-07-23] MEDS: Thiamine HCL 100 MG TABLET PO (07:48)
--- NOTE | 2023-07-23 12:58 | W.PM.DNNEP ---
Subjective Subjective Date of Service: 07/24/23 This patient was seen during dialysis. Interval history: f/u on sepsis, uti, abd pain, hypotension interval history: intermittent low bp not new, urine cultur growing gram positive cocci Physical Exam Vital Signs: Vital Signs: Last Vital Signs Temp 97.3 F 07/23/23 07:24 Pulse 72 07/23/23 09:57 Resp 17 07/23/23 08:10 BP 89/55 L 07/23/23 09:57 Pulse Ox 97 07/23/23 07:24 O2 Del Method Room Air 07/23/23 07:24 BMI result Body Mass Index 21.4 Const: General: ill appearing Neck: Neck: Yes supple Resp: Auscultation: clear to auscultation bilaterally Cardio: Palpation: no palpable S3 Heart sounds: no rubs GI: Palpation (GI): Soft to palpation Auscultation: normal bowel sounds Neuro: Motor exam (neuro): no asterixis Assessment & Plan Assessment and plan (1) Renal failure syndrome: Status: Acute Plan Renal failure in a setting of Cirrhosis Dialysis dependent for the past 3 weeks Unable to tolerate dialysis due to low BP despite high dose of Midodrine Failure to thrive UTI - agree with antibiotic coverage HD today and he has received 1 dose of midodrine. Systolic pressure was as low as 60 mm. He is waiting for the 2nd dose. If he is unable to tolerate dialysis with midodrine due to low blood pressure then we Need to discuss goals of therapy Overall prognosis guarded Time Spent With Patient Time: Total time managing care of this patient today ____ minutes. Procedures Date of Service Date of Service: 07/24/23
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
--- NOTE | 2023-07-23 15:35 | P.PNIM_ITS ---
Subjective Subjective Date of Service: 07/23/23 Interval History: on hd ,boderline bp, uti Review of Systems intermittent low bp not new, Physical Exam 2 Vital Signs: Vital Signs: Last Vital Signs Temp 97.0 F 07/23/23 14:59 Pulse 72 07/23/23 14:59 Resp 18 07/23/23 14:59 BP 90/51 L 07/23/23 14:59 Pulse Ox 96 07/23/23 14:59 O2 Del Method Room Air 07/23/23 14:59 BMI result Body Mass Index 21.4 General: oriented to self, and place, no acute distress Resp: CTA bilateral CVS: S1,S2,RRR GI: +BS, NT, no distention Skin: No rash Neuro: motor grossly intact Psych: appropriate affect Objective Data Active Medications Acetaminophen (Acetaminophen 325 Mg Tablet) 650 mg PO Q6H PRN PRN Reason: Pain, Mild (Pain Scale 1-3) Al Hydroxide/Mg Hydroxide (Magnesium Hydrox/Alum Hydrox 30 Ml Oral.Susp) 30 ml PO Q4H PRN PRN Reason: Heartburn/Nausea Bisacodyl (Bisacodyl 10 Mg Supp.Rect) 10 mg [place] DAILY PRN PRN Reason: Constipation Docusate Sodium (Docusate Sodium 100 Mg Capsule) 100 mg PO BID [facility] Last Admin: 07/23/23 07:49 Dose: Not Given Documented By: LIEN Non-Admin Reason: Diarrhea/ Loose Stools Folic Acid (Folic Acid 1 Mg Tablet) 1 mg PO DAILY@0900 [facility] Last Admin: 07/23/23 07:47 Dose: 1 mg Documented By: LIEN Gabapentin (Gabapentin 100 Mg Capsule) 200 mg PO DAILY@0900 [facility] Last Admin: 07/23/23 07:47 Dose: 200 mg Documented By: LIEN Heparin Sodium (Porcine) (Heparin Sodium,Porcine 5,000 Unit/Ml Vial) 5,000 unit SUBCUT Q8H [facility] Last Admin: 07/23/23 09:04 Dose: Not Given Documented By: LIEN Non-Admin Reason: Physician Held Med Ceftriaxone Sodium 1 gm/ (Sodium Chloride) 50 mls @ 100 mls/hr IV Q24H [facility] Last Infusion: 07/22/23 21:19 Dose: Infused Documented By: LO Doxycycline Hyclate 100 mg/ (Sodium Chloride) 250 mls @ 166.67 mls/hr IV Q12H [facility] Last Admin: 07/23/23 14:29 Dose: 166.67 mls/hr Documented By: LIEN Lactulose (Lactulose 20 Gm/30 Ml Solution) 30 gm PO BID [facility] Last Admin: 07/23/23 07:50 Dose: Not Given Documented By: LIEN Non-Admin Reason: Diarrhea/ Loose Stools Melatonin (Melatonin 3 Mg Tablet) 3 mg PO BEDTIME [facility] Last Admin: 07/22/23 20:46 Dose: 3 mg Documented By: LO Midodrine (Midodrine Hcl 10 Mg Tablet) 10 mg PO TID [facility] Last Admin: 07/23/23 12:35 Dose: 10 mg Documented By: LIEN Multivitamins/Vitamin C (Multivitamin Tablet) 1 tab PO DAILY@0900 [facility] Last Admin: 07/23/23 07:47 Dose: 1 tab Documented By: LIEN Naltrexone HCl (Naltrexone Hcl 50 Mg Tablet) 50 mg PO DAILY@0900 [facility] Last Admin: 07/23/23 07:47 Dose: 50 mg Documented By: LIEN Omeprazole (Omeprazole 20 Mg Capsule.Dr) 20 mg PO DAILY@0600 [facility] Last Admin: 07/23/23 05:38 Dose: 20 mg Documented By: LO Ondansetron HCl (Ondansetron Hcl 4 Mg/2 Ml Vial) 4 mg IVPUSH Q8H PRN PRN Reason: Nausea and Vomiting Rifaximin (Rifaximin 550 Mg Tablet) 550 mg PO BID [facility] Last Admin: 07/23/23 07:47 Dose: 550 mg Documented By: LIEN Senna (Sennosides 8.6 Mg Tablet) 17.2 mg PO BEDTIME PRN PRN Reason: Constipation Sertraline HCl (Sertraline Hcl 100 Mg Tablet) 100 mg PO DAILY@0900 [facility] Last Admin: 07/23/23 07:47 Dose: 100 mg Documented By: LIEN Sodium Bicarbonate (Sodium Bicarbonate 650 Mg Tablet) 650 mg PO TID@0900,1400,1800 [facility] Last Admin: 07/23/23 12:38 Dose: 650 mg Documented By: LIEN Sodium Biphosphate/Sodium Phosphate (Sodium Phosphate,[place]-Dibasic 133 Ml Enema) 118 ml [place] DAILY PRN PRN Reason: Constipation Sodium Chloride (0.9 % Sodium Chloride Flush 3 Ml Syringe) 3 ml IVFLUSH QSHIFT [facility] Last Admin: 07/23/23 14:29 Dose: 3 ml Documented By: LIEN Thiamine HCl (Thiamine Hcl 100 Mg Tablet) 100 mg PO DAILY@0900 [facility] Last Admin: 07/23/23 07:48 Dose: 100 mg Documented By: LIEN Labs 07/20/23 16:22 07/20/23 15:42 Microbiology Microbiology Results: Microbiology 07/20/23 21:21 Blood Culture - Preliminary Blood - Venous No growth after 48 hours. Assessment and Plan (1) Sepsis: Status: Acute (2) Acute UTI: Status: Acute Plan 67/m with ESRD on HD, cirrhosis of liver d/t alcohol brought from dialysis with AMS, N/V , Hypotension AMS/Encephalpathy d/t UTI -treat underlying UTI with Ceftriaxone and doxy added Id eval. Severe sepsis d/t UTI, sepsis resovled -s/p IVF per sepsis, continue IVF, urine culture = gram positive cocci, sensitivity pending Hypotension--this a chronic issues and is on high dose of midodrine 10 tid and making it challenging to dialysis Abd pain, likely from constipation, resolved and has had bowel movement CKD now ESRD on permanent dialsysis now, unfortunately doesn't tolerate dialysis d/t hypotension.. Dialysis TTS chronic HFrEF 30-35% - no acute decompensation hx DM2 - A1c only 5.3, no meds necessary AUD - naltrexone mood disorder - sertraline VTE ppx - SCDs, add heparin Full code neeed for inpatient: Hypotension, UTI need for IV Abx and acute dialysis Quality Stroke Does the patient have a stroke diagnosis?: No VTE Prior VTE?: No VTE Risk Level:: Medical - moderate - high VTE Device Contraindication: Treatment Not Indicated VTE Drug Contraindication: N/A - Med Ordered
[2023-07-23] MEDS: Melatonin 3 MG TABLET PO (21:02)
[2023-07-23] MEDS: cefTRIAXone sodium 1 GM in 0.9 % Sodium Chloride 50 ML IV (21:53)
[2023-07-24] VITALS (7 sets, daily range): BP systolic 88–110; BP diastolic 42–59; PULSE 69–75; RESP 16–20; TEMP 36.1–36.8; O2SAT 96–100
[2023-07-24] MEDS: Doxycycline Hyclate 100 MG in 0.9 % Sodium Chloride 250 ML 166.67 MG IV (00:45)
[2023-07-24] MEDS: Doxycycline Monohydrate 100 MG CAPSULE PO ×2 (08:10→21:19)
[2023-07-24] MEDS: Heparin Sodium,Porcine 5,000 UNIT/ML VIAL 5000 UNIT SUBCUT (08:11)
[2023-07-24] MEDS: Omeprazole 20 MG CAPSULE.DR PO (08:11)
[2023-07-24] MEDS: Midodrine HCl 10 MG TABLET PO ×4 (08:11→21:19)
[2023-07-24] MEDS: Multivitamin TABLET 1 TAB PO (08:11)
[2023-07-24] MEDS: rifAXIMin 550 MG TABLET PO ×2 (08:11→21:19)
[2023-07-24] MEDS: Docusate Sodium 100 MG CAPSULE PO ×2 (08:11→21:20)
[2023-07-24] MEDS: Sertraline HCL 100 MG TABLET PO (08:11)
[2023-07-24] MEDS: Gabapentin 100 MG CAPSULE 200 MG PO (08:11)
[2023-07-24] MEDS: Folic Acid 1 MG TABLET PO (08:11)
[2023-07-24] MEDS: Naltrexone HCl 50 MG TABLET PO (08:11)
[2023-07-24] MEDS: Thiamine HCL 100 MG TABLET PO (08:11)
[2023-07-24] MEDS: Sodium Bicarbonate 650 MG TABLET PO ×3 (08:17→18:13)
[2023-07-24] MEDS: 0.9 % Sodium Chloride Flush 3 ML SYRINGE IVFLUSH ×2 (08:17→14:27)
--- NOTE | 2023-07-24 10:14 | MHC.CM.PN ---
EMR REVIEWED, PER HOSPITALIST PT HYPONATREMIC, MED CHANGES PER NEPHROLOGY AND WILL REATTEMPT HD TOMORROW 07/24, CM MET W/PT'S HCP/S.O. MAAME TO DISCUSS DISPO AND MAAME UPDATED ON PLAN AND CM WILL FOLLOW UP W/MAAME TOMORROW ON HOW HD WENT. ALSO HOSPITALIST REPORTS IF HD DOES NOT WORK TOMORROW HE WILL HAVE A CONVERSATION REGARDING HOSPICE, MAAME REPORTS SHE DID HAVE A HOSPICE/COST CONSULTANT CONSULT WITH [facility] AND WOULD LIKE THEM TO PROVIDE SERVICES IF NEEDED, CM WILL CONT TO FOLLOW DC NEEDS.
--- NOTE | 2023-07-24 15:28 | P.PNIM_ITS ---
Subjective Subjective Date of Service: 07/24/23 Interval History: on hd ,boderline bp, Review of Systems bp flactuates ,no new symptoms Physical Exam 2 Vital Signs: Vital Signs: Last Vital Signs Temp 96.9 F 07/24/23 15:10 Pulse 75 07/24/23 15:10 Resp 20 07/24/23 15:10 BP 88/52 L 07/24/23 15:10 Pulse Ox 100 07/24/23 15:10 O2 Del Method Room Air 07/24/23 15:10 BMI result Body Mass Index 21.4 General: oriented to self, and place, no acute distress Resp: CTA bilateral CVS: S1,S2,RRR GI: +BS, NT, no distention Skin: No rash Neuro: motor grossly intact Psych: appropriate affect Objective Data Active Medications Acetaminophen (Acetaminophen 325 Mg Tablet) 650 mg PO Q6H PRN PRN Reason: Pain, Mild (Pain Scale 1-3) Al Hydroxide/Mg Hydroxide (Magnesium Hydrox/Alum Hydrox 30 Ml Oral.Susp) 30 ml PO Q4H PRN PRN Reason: Heartburn/Nausea Bisacodyl (Bisacodyl 10 Mg Supp.Rect) [address] DAILY PRN PRN Reason: Constipation Docusate Sodium (Docusate Sodium 100 Mg Capsule) 100 mg PO BID [facility] Last Admin: 07/24/23 08:11 Dose: 100 mg Documented By: SMITH Doxycycline Monohydrate (Doxycycline Monohydrate 100 Mg Capsule) 100 mg PO BID [facility] Last Admin: 07/24/23 08:10 Dose: 100 mg Documented By: SMITH Folic Acid (Folic Acid 1 Mg Tablet) 1 mg PO DAILY@0900 [facility] Last Admin: 07/24/23 08:11 Dose: 1 mg Documented By: SMITH Gabapentin (Gabapentin 100 Mg Capsule) 200 mg PO DAILY@0900 [facility] Last Admin: 07/24/23 08:11 Dose: 200 mg Documented By: SMITH Heparin Sodium (Porcine) (Heparin Sodium,Porcine 5,000 Unit/Ml Vial) 5,000 unit SUBCUT Q8H [facility] Last Admin: 07/24/23 08:11 Dose: 5,000 unit Documented By: SMITH Ceftriaxone Sodium 1 gm/ (Sodium Chloride) 50 mls @ 100 mls/hr IV Q24H [facility] Last Infusion: 07/23/23 22:23 Dose: Infused Documented By: MAYCO Lactulose (Lactulose 20 Gm/30 Ml Solution) 30 gm PO BID [facility] Last Admin: 07/24/23 08:15 Dose: Not Given Documented By: SMITH Non-Admin Reason: Patient Refused Melatonin (Melatonin 3 Mg Tablet) 3 mg PO BEDTIME [facility] Last Admin: 07/23/23 21:02 Dose: 3 mg Documented By: MAYCO Midodrine (Midodrine Hcl 10 Mg Tablet) 10 mg PO QID [facility] Last Admin: 07/24/23 14:27 Dose: 10 mg Documented By: LIEN Multivitamins/Vitamin C (Multivitamin Tablet) 1 tab PO DAILY@0900 [facility] Last Admin: 07/24/23 08:11 Dose: 1 tab Documented By: SMITH Naltrexone HCl (Naltrexone Hcl 50 Mg Tablet) 50 mg PO DAILY@0900 [facility] Last Admin: 07/24/23 08:11 Dose: 50 mg Documented By: SMITH Omeprazole (Omeprazole 20 Mg Capsule.Dr) 20 mg PO DAILY@0600 [facility] Last Admin: 07/24/23 08:11 Dose: 20 mg Documented By: SMITH Ondansetron HCl (Ondansetron Hcl 4 Mg/2 Ml Vial) 4 mg IVPUSH Q8H PRN PRN Reason: Nausea and Vomiting Rifaximin (Rifaximin 550 Mg Tablet) 550 mg PO BID [facility] Last Admin: 07/24/23 08:11 Dose: 550 mg Documented By: SMITH Senna (Sennosides 8.6 Mg Tablet) 17.2 mg PO BEDTIME PRN PRN Reason: Constipation Sertraline HCl (Sertraline Hcl 100 Mg Tablet) 100 mg PO DAILY@0900 [facility] Last Admin: 07/24/23 08:11 Dose: 100 mg Documented By: SMITH Sodium Bicarbonate (Sodium Bicarbonate 650 Mg Tablet) 650 mg PO TID@0900,1400,1800 [facility] Last Admin: 07/24/23 14:27 Dose: 650 mg Documented By: LIEN Sodium Biphosphate/Sodium Phosphate (Sodium Phosphate,[place]-Dibasic 133 Ml Enema) [address] DAILY PRN PRN Reason: Constipation Sodium Chloride (0.9 % Sodium Chloride Flush 3 Ml Syringe) 3 ml IVFLUSH QSHIFT [facility] Last Admin: 07/24/23 14:27 Dose: 3 ml Documented By: LIEN Thiamine HCl (Thiamine Hcl 100 Mg Tablet) 100 mg PO DAILY@0900 [facility] Last Admin: 07/24/23 08:11 Dose: 100 mg Documented By: SMITH Labs 07/20/23 16:22 07/20/23 15:42 Microbiology Microbiology Results: Microbiology 07/20/23 18:50 Urine Culture - Preliminary Urine Catheterized - Gordon Catheter Enterococcus faecium Yeast Assessment and Plan (1) Sepsis: Status: Acute (2) Acute UTI: Status: Acute Plan 67/m with ESRD on HD, cirrhosis of liver d/t alcohol brought from dialysis with AMS, N/V , Hypotension AMS/Encephalpathy d/t UTI -treat underlying UTI with Ceftriaxone and doxy Id eval. Severe sepsis d/t UTI, sepsis resovled -s/p IVF per sepsis, continue IVF, urine culture = gram positive cocci, sensitivity pending Hypotension--bp flactuates ,this a chronic issues and is on high dose of midodrine 10 qid and making it challenging to dialysis plan is to give midodrine 10 mg in am and then give another midodrine dose during Hd to see if he tolerates HD. Abd pain, likely from constipation, resolved and has had bowel movement CKD now ESRD on permanent dialsysis now, unfortunately doesn't tolerate dialysis d/t hypotension.. Dialysis TTS chronic HFrEF 30-35% - no acute decompensation hx DM2 - A1c only 5.3, no meds necessary AUD - naltrexone mood disorder - sertraline VTE ppx - SCDs, add heparin Full code neeed for inpatient: Hypotension, UTI need for IV Abx and acute dialysis. his updated . Quality Stroke Does the patient have a stroke diagnosis?: No VTE Prior VTE?: No VTE Risk Level:: Medical - moderate - high VTE Device Contraindication: Treatment Not Indicated VTE Drug Contraindication: N/A - Med Ordered
[2023-07-24] MEDS: Linezolid 600 MG TABLET PO (18:13)
--- NOTE | 2023-07-24 20:16 | P.PNNP_ITS ---
Subjective Subjective Date of Service: 07/24/23 Interval history: Events noted; All recent data reviewed; D/W hospitalist Physical Exam 2 Vital Signs: Vital Signs: Last Vital Signs Temp 96.9 F 07/24/23 15:10 Pulse 71 07/24/23 18:00 Resp 17 07/24/23 18:00 BP 91/50 L 07/24/23 18:00 Pulse Ox 100 07/24/23 15:10 O2 Del Method Room Air 07/24/23 15:10 BMI result Body Mass Index 21.4 Const: General: no acute distress Eyes: EOM: EOMs intact bilaterally Resp: Auscultation: diminished lung sounds Cardio: Rate: regular rate GI: Palpation (GI): Soft to palpation Neuro: General: moves all extremities Objective Data Labs 07/20/23 16:22 07/20/23 15:42 Microbiology Microbiology Results: Microbiology 07/20/23 18:50 Urine Catheterized - Gordon Catheter Urine Culture - Preliminary Enterococcus faecium Yeast 07/20/23 21:21 Blood - Venous Blood Culture - Preliminary No growth after 48 hours. 07/20/23 20:31 Blood - Venous Blood Culture - Final Procedures Date of Service Date of Service: 07/24/23 Assessment & Plan Assessment and plan (1) Acute on chronic renal failure: Status: Acute Plan Renal failure in a setting of Cirrhosis Dialysis dependent for the past 3 weeks Unable to tolerate dialysis due to low BP despite high dose of Midodrine Failure to thrive UTI - agree with antibiotic coverage Increase Midodrine to 10 mg 4 times a day Could reduce HD to twice a week Next HD tomorrow; Overall prognosis guarded Progress Note: Quality Stroke Does the patient have a stroke diagnosis?: No
[2023-07-24] MEDS: Melatonin 3 MG TABLET PO (21:19)
--- NOTE | 2023-07-25 00:14 | P.CNID_ITS ---
History of Present Illness Data of Consult Service Date: 07/24/23 Requesting physician: Lianne Blanco Primary Care Provider: DONNA CHISHOLM Reason for consult: E faecium urine He presents with weakness and fatigue and thought had dysuria last week. He has no fever or chills now. He has enterococcus faecium newly found in urine and robert. Review of Systems 2 Review of Systems: Yes all other systems are reviewed and are negative PMFSH Past Medical History Medical History Acute on chronic renal failure MCI (mild cognitive impairment) Chronic systolic (congestive) heart failure Acute hepatic encephalopathy Altered mental state Catheter-associated urinary tract infection Depression Cardiomyopathy Ascites due to alcoholic cirrhosis Cirrhosis PENNY (acute kidney injury) Ascites Urinary tract infection GERD (gastroesophageal reflux disease) Hepatic encephalopathy Alcoholic cirrhosis Esophageal stricture Enlarged prostate Chronic indwelling Gordon catheter 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 Orthostatic hypotension Chronic liver disease Type 2 diabetes mellitus Family History Family history: reviewed and not pertinent Social History Social History Household Members: None Housing: Assisted Living Facility Do you presently have visiting nurse or other home services: Yes Unable to assess alcohol history related to: Unknown Alcohol intake: former Patient Tobacco Use Status: Former Tobacco user Smoked in Last 30 Days: No Use of substances other than those prescribed or required for medical reasons: No Substance Use Type: Marijuana Currently Displaying Signs/Symptoms of Drug Intoxication Withdrawal: No Have you been hit, kicked, punched, or otherwise hurt by someone within the past year? If so, by whom?: No Do you feel safe in your current relationship?: No Current Relationship Is there a partner from a previous relationship who is making you feel unsafe now?: No Are you made to feel afraid or neglected: No Advance Directives: Yes Advance Directives on File: Yes Advance Directives Date on File: 05/31/23 Do you have a plan to hurt others: No Plan Nutrition Risks: Dental problems Poor oral hygiene: Yes service: No Meds Allergies Allergy/AdvReac Type Severity Reaction Status Date / Time lisinopril Allergy Angioedema Verified 07/20/23 14:45 scallops Allergy Angioedema Verified 07/20/23 14:45 Active Medications: Current Medications Acetaminophen (Acetaminophen 325 Mg Tablet) 650 mg PO Q6H PRN PRN Reason: Pain, Mild (Pain Scale 1-3) Al Hydroxide/Mg Hydroxide (Magnesium Hydrox/Alum Hydrox 30 Ml Oral.Susp) 30 ml PO Q4H PRN PRN Reason: Heartburn/Nausea Bisacodyl (Bisacodyl 10 Mg Supp.Rect) 10 mg KS DAILY PRN PRN Reason: Constipation Docusate Sodium (Docusate Sodium 100 Mg Capsule) 100 mg PO BID [facility] Last Admin: 07/24/23 21:20 Dose: 100 mg Doxycycline Monohydrate (Doxycycline Monohydrate 100 Mg Capsule) 100 mg PO BID [facility] Last Admin: 07/24/23 21:19 Dose: 100 mg Gabapentin (Gabapentin 100 Mg Capsule) 200 mg PO DAILY@0900 [facility] Last Admin: 07/24/23 08:11 Dose: 200 mg Heparin Sodium (Porcine) (Heparin Sodium,Porcine 5,000 Unit/Ml Vial) 5,000 unit SUBCUT Q8H [facility] Last Admin: 07/24/23 16:02 Dose: Not Given Lactulose (Lactulose 20 Gm/30 Ml Solution) 30 gm PO BID [facility] Last Admin: 07/24/23 21:20 Dose: Not Given Linezolid (Linezolid 600 Mg Tablet) 600 mg PO Q12H [facility] Last Admin: 07/24/23 18:13 Dose: 600 mg Melatonin (Melatonin 3 Mg Tablet) 3 mg PO BEDTIME [facility] Last Admin: 07/24/23 21:19 Dose: 3 mg Midodrine (Midodrine Hcl 10 Mg Tablet) 10 mg PO QID [facility] Last Admin: 07/24/23 21:19 Dose: 10 mg Multivitamins/Vitamin C (Multivitamin Tablet) 1 tab PO DAILY@0900 [facility] Last Admin: 07/24/23 08:11 Dose: 1 tab Naltrexone HCl (Naltrexone Hcl 50 Mg Tablet) 50 mg PO DAILY@0900 [facility] Last Admin: 07/24/23 08:11 Dose: 50 mg Omeprazole (Omeprazole 20 Mg Capsule.Dr) 20 mg PO DAILY@0600 [facility] Last Admin: 07/24/23 08:11 Dose: 20 mg Ondansetron HCl (Ondansetron Hcl 4 Mg/2 Ml Vial) 4 mg IVPUSH Q8H PRN PRN Reason: Nausea and Vomiting Rifaximin (Rifaximin 550 Mg Tablet) 550 mg PO BID [facility] Last Admin: 07/24/23 21:19 Dose: 550 mg Senna (Sennosides 8.6 Mg Tablet) 17.2 mg PO BEDTIME PRN PRN Reason: Constipation Sertraline HCl (Sertraline Hcl 100 Mg Tablet) 100 mg PO DAILY@0900 [facility] Last Admin: 07/24/23 08:11 Dose: 100 mg Sodium Bicarbonate (Sodium Bicarbonate 650 Mg Tablet) 650 mg PO TID@0900,1400,1800 [facility] Last Admin: 07/24/23 18:13 Dose: 650 mg Sodium Biphosphate/Sodium Phosphate (Sodium Phosphate,Amador-Dibasic 133 Ml Enema) 118 ml KS DAILY PRN PRN Reason: Constipation Sodium Chloride (0.9 % Sodium Chloride Flush 3 Ml Syringe) 3 ml IVFLUSH QSHIFT [facility] Last Admin: 07/24/23 23:53 Dose: Not Given Thiamine HCl (Thiamine Hcl 100 Mg Tablet) 100 mg PO DAILY@0900 [facility] Last Admin: 07/24/23 08:11 Dose: 100 mg Home Medications ?Medication ?Instructions ?Recorded ?Confirmed ?Last Taken ?Type acetaminophen 325 mg tablet 650 mg PO DAILY PRN Fever Or Pain 04/30/23 07/20/23 Unknown History folic acid 1 mg tablet 1 mg PO DAILY@0904/30/23 07/20/23 Unknown History melatonin 3 mg tablet 3 mg PO BEDTIME Sleep 04/30/23 07/20/23 Unknown History midodrine 10 mg tablet 10 mg PO TID 04/30/23 07/20/23 Unknown History multivitamin 1 tab PO DAILY@0904/30/23 07/20/23 Unknown History naltrexone 50 mg tablet 50 mg PO DAILY@89904/30/23 07/20/23 Unknown History pantoprazole 40 mg tablet,delayed 40 mg PO DAILY@0604/30/23 07/20/23 Unknown History release rifaximin 550 mg tablet (Xifaxan) 550 mg PO BID 04/30/23 07/20/23 Unknown History thiamine HCl (vitamin B1) 100 mg 100 mg PO DAILY@0900 04/30/23 07/20/23 Unknown History tablet bisacodyl 10 mg rectal suppository 10 mg KS DAILY PRN Constipation 05/20/23 07/20/23 Unknown History ondansetron HCl 4 mg tablet 4 mg PO Q4H PRN nausea/vomting 05/20/23 07/20/23 Unknown History nystatin 100,000 unit/gram topical 1 appl topical DAILY 06/16/23 07/20/23 Unknown History powder sodium phosphates 19 gram-7 118 ml KS DAILY PRN Constipation 06/16/23 07/20/23 Unknown History gram/118 mL enema (Fleet Enema) gabapentin 100 mg capsule 200 mg PO DAILY@0900 07/20/23 07/20/23 Unknown History sertraline 100 mg tablet 100 mg PO DAILY@0907/20/23 07/20/23 Unknown History sodium bicarbonate 650 mg tablet 650 mg PO TID@0900,1400,1800 07/20/23 07/20/23 Unknown History Physical Exam 2 Vital Signs: Vital Signs: Last Vital Signs Temp 97.5 F 07/24/23 23:45 Pulse 72 07/24/23 23:45 Resp 18 07/24/23 23:45 BP 108/59 L 07/24/23 23:45 Pulse Ox 96 07/24/23 23:45 O2 Del Method Room Air 07/24/23 23:45 BMI result Body Mass Index 21.4 Const: General: cooperative HEENT: Head: Yes normal to inspection Face and sinus: Yes normal facial exam Mouth: Normal oral and palatal mucosa present Teeth and gingiva: d entition normal Eyes: General: appearance normal, both eyes and all related structures P upils: Equal, round and reactive pupils present Resp: Effort & Inspection: normal respiratory effort Cardio: Rate: regular rate Rhythm: regular rhythm GI: Palpation (GI): Soft to palpation and nontender : General: Yes no CVA tenderness Back/Spine/Pelvis: Back: no CVA tenderness Skin: General skin exam: no rashes or lesions noted Neuro: General: moves all extremities Cranial nerves: Yes Equal, round and reactive pupils present Extrem: General: Yes normal to inspection Psych: Appearance: grossly normal Results Labs 07/20/23 16:22 07/20/23 15:42 Microbiology Microbiology Results: Microbiology 07/20/23 18:50 Urine Catheterized - Gordon Catheter Urine Culture - Preliminary Enterococcus faecium Yeast 07/20/23 21:21 Blood - Venous Blood Culture - Preliminary No growth after 48 hours. 07/20/23 20:31 Blood - Venous Blood Culture - Final Assessment and Plan (1) Acute on chronic renal failure: Qualifiers: Acute renal failure type: unspecified Chronic kidney disease stage: u nspecified stage Qualified Code(s): N17.9 - Acute kidney failure, unspecified; N18.9 - Chronic kidney disease, unspecified Status: Acute (2) Renal failure syndrome: Status: Acute (3) Sepsis: Status: Acute (4) Acute UTI: Status: Acute Plan He has elevated lactic acid and some tachycardia. He has new enterococcus urine Linezolid for 14 day total. Can stop Doxycycline unless other reason why on.
[2023-07-25] MEDS: Heparin Sodium,Porcine 5,000 UNIT/ML VIAL 5000 UNIT SUBCUT ×2 (03:09→16:40)
[2023-07-25 03:38] VITALS: BP 86/50; PULSE 66; RESP 18; TEMP 37; O2SAT 97
[2023-07-25] MEDS: Linezolid 600 MG TABLET PO ×2 (05:09→16:40)
[2023-07-25] MEDS: Omeprazole 20 MG CAPSULE.DR PO (05:09)
[2023-07-25] MEDS: Midodrine HCl 10 MG TABLET PO ×4 (07:41→16:40)
--- NOTE | 2023-07-25 09:26 | W.PM.DNNEP ---
Subjective Subjective Date of Service: 07/25/23 This patient was seen during dialysis. Interval history: Events noted; All recent data reviewed; D/W hospitalist Physical Exam Vital Signs: Vital Signs: Last Vital Signs Temp 98.6 F 07/25/23 03:38 Pulse 66 07/25/23 03:38 Resp 18 07/25/23 03:38 BP 86/50 L 07/25/23 03:38 Pulse Ox 97 07/25/23 03:38 O2 Del Method Room Air 07/25/23 03:38 BMI result Body Mass Index 21.4 Const: General: ill appearing Neck: Neck: Yes supple Resp: Auscultation: clear to auscultation bilaterally Cardio: Palpation: no palpable S3 Heart sounds: no rubs GI: Palpation (GI): Soft to palpation Auscultation: normal bowel sounds Neuro: Motor exam (neuro): no asterixis Assessment & Plan Assessment and plan (1) Renal failure syndrome: Status: Acute Plan Renal failure in a setting of Cirrhosis Dialysis dependent for the past 3 weeks Unable to tolerate dialysis due to low BP despite high dose of Midodrine Failure to thrive UTI - agree with antibiotic coverage HD today . Systolic pressure was as low as 60 mm. If he is unable to tolerate dialysis with midodrine due to low blood pressure then we Need to discuss goals of therapy Overall prognosis guarded Time Spent With Patient Time: Total time managing care of this patient today ____ minutes. Procedures Date of Service Date of Service: 07/25/23
[2023-07-25 12:00] VITALS: BP 85/51; PULSE 60; RESP 16; TEMP 36.1; O2SAT 95
[2023-07-25 12:30] VITALS: BP 88/50
[2023-07-25] MEDS: Sodium Bicarbonate 650 MG TABLET PO ×2 (12:38→16:50)
--- NOTE | 2023-07-25 12:59 | MHC.CM.PN ---
CM MET W/PT'S /S.O. MAAME AND PT'S RN TO SEE HOW PT DID W/HD, PER NSG PT NEEDED AN EXTRA DOSE OF MIDODRINE DURING HD, MAAME REQUESTING TO SPEAK W/HOSPITALIST OR NEPHROLOGY, HOSPITALIST MADE AWARE VIA TIGERCONNECT, CM WILL CONT TO FOLLOW DC NEEDS.
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
--- NOTE | 2023-07-25 15:18 | HO.PM.IMPN ---
Subjective Subjective Date of Service: 07/25/23 Interval History: on hd ,boderline bp. Review of Systems bp flactuates ,no new symptoms Physical Exam Vital Signs: Vital Signs: Last Vital Signs Temp 97 F 07/25/23 12:00 Pulse 60 07/25/23 12:00 Resp 16 07/25/23 12:00 BP 88/50 L 07/25/23 12:30 Pulse Ox 95 07/25/23 12:00 O2 Del Method Room Air 07/25/23 12:00 BMI result Body Mass Index 21.4 General: oriented to self, and place, no acute distress Resp: CTA bilateral CVS: S1,S2,RRR GI: +BS, NT, no distention Skin: No rash Neuro: motor grossly intact Psych: appropriate affect Objective Data Active Medications Acetaminophen (Acetaminophen 325 Mg Tablet) 650 mg PO Q6H PRN PRN Reason: Pain, Mild (Pain Scale 1-3) Al Hydroxide/Mg Hydroxide (Magnesium Hydrox/Alum Hydrox 30 Ml Oral.Susp) 30 ml PO Q4H PRN PRN Reason: Heartburn/Nausea Bisacodyl (Bisacodyl 10 Mg Supp.Rect) 10 mg [place] DAILY PRN PRN Reason: Constipation Docusate Sodium (Docusate Sodium 100 Mg Capsule) 100 mg PO BID [facility] Last Admin: 07/25/23 11:08 Dose: Not Given Documented By: HEATH Non-Admin Reason: Patient Refused Gabapentin (Gabapentin 100 Mg Capsule) 200 mg PO DAILY@0900 [facility] Last Admin: 07/25/23 11:08 Dose: Not Given Documented By: HEATH Non-Admin Reason: Patient Refused Heparin Sodium (Porcine) (Heparin Sodium,Porcine 5,000 Unit/Ml Vial) 5,000 unit SUBCUT Q8H [facility] Last Admin: 07/25/23 11:09 Dose: Not Given Documented By: HEATH Non-Admin Reason: Patient Refused Lactulose (Lactulose 20 Gm/30 Ml Solution) 30 gm PO BID [facility] Last Admin: 07/25/23 11:08 Dose: Not Given Documented By: HEATH Non-Admin Reason: Patient Refused Linezolid (Linezolid 600 Mg Tablet) 600 mg PO Q12H [facility] Last Admin: 07/25/23 05:09 Dose: 600 mg Documented By: ALLYLAMAnnette Melatonin (Melatonin 3 Mg Tablet) 3 mg PO BEDTIME [facility] Last Admin: 07/24/23 21:19 Dose: 3 mg Documented By: HIPOLITO Midodrine (Midodrine Hcl 10 Mg Tablet) 10 mg PO QID [facility] Last Admin: 07/25/23 12:38 Dose: 10 mg Documented By: HEATH Multivitamins/Vitamin C (Multivitamin Tablet) 1 tab PO DAILY@0900 [facility] Last Admin: 07/25/23 11:08 Dose: Not Given Documented By: HEATH Non-Admin Reason: Patient Refused Naltrexone HCl (Naltrexone Hcl 50 Mg Tablet) 50 mg PO DAILY@0900 [facility] Last Admin: 07/25/23 11:08 Dose: Not Given Documented By: HEATH Non-Admin Reason: Patient Refused Omeprazole (Omeprazole 20 Mg Capsule.Dr) 20 mg PO DAILY@0600 [facility] Last Admin: 07/25/23 05:09 Dose: 20 mg Documented By: HIPOLITO Ondansetron HCl (Ondansetron Hcl 4 Mg/2 Ml Vial) 4 mg IVPUSH Q8H PRN PRN Reason: Nausea and Vomiting Rifaximin (Rifaximin 550 Mg Tablet) 550 mg PO BID [facility] Last Admin: 07/25/23 11:08 Dose: Not Given Documented By: HEATH Non-Admin Reason: Patient Refused Senna (Sennosides 8.6 Mg Tablet) 17.2 mg PO BEDTIME PRN PRN Reason: Constipation Sertraline HCl (Sertraline Hcl 100 Mg Tablet) 100 mg PO DAILY@0900 [facility] Last Admin: 07/25/23 11:08 Dose: Not Given Documented By: HEATH Non-Admin Reason: Patient Refused Sodium Bicarbonate (Sodium Bicarbonate 650 Mg Tablet) 650 mg PO TID@0900,1400,1800 [facility] Last Admin: 07/25/23 12:38 Dose: 650 mg Documented By: HEATH Sodium Biphosphate/Sodium Phosphate (Sodium Phosphate,[place]-Dibasic 133 Ml Enema) 118 ml [place] DAILY PRN PRN Reason: Constipation Sodium Chloride (0.9 % Sodium Chloride Flush 3 Ml Syringe) 3 ml IVFLUSH QSHIFT [facility] Last Admin: 07/25/23 11:07 Dose: Not Given Documented By: HEATH Non-Admin Reason: Patient Refused Thiamine HCl (Thiamine Hcl 100 Mg Tablet) 100 mg PO DAILY@0900 [facility] Last Admin: 07/25/23 11:09 Dose: Not Given Documented By: HEATH Non-Admin Reason: Patient Refused Labs 07/20/23 16:22 07/20/23 15:42 Microbiology Microbiology Results: Microbiology 07/20/23 18:50 Urine Culture - Preliminary Urine Catheterized - Gordon Catheter Enterococcus faecium Yeast Assessment and Plan (1) Sepsis: Status: Acute (2) Acute UTI: Status: Acute Plan 67/m with ESRD on HD, cirrhosis of liver d/t alcohol brought from dialysis with AMS, N/V , Hypotension AMS/Encephalpathy d/t UTI -treat underlying UTI with Ceftriaxone and doxy Id eval. Severe sepsis d/t UTI, sepsis resovled -s/p IVF per sepsis, continue IVF, urine culture = gram positive cocci, sensitivity pending Hypotension--bp flactuates ,this a chronic issues and is on high dose of midodrine 10 qid and making it challenging to dialysis plan is to give midodrine 10 mg in am and then give another midodrine dose during Hd to see if he tolerates HD. Abd pain, likely from constipation, resolved and has had bowel movement CKD now ESRD on permanent dialsysis now, unfortunately doesn't tolerate dialysis d/t hypotension.. Dialysis TTS chronic HFrEF 30-35% - no acute decompensation hx DM2 - A1c only 5.3, no meds necessary AUD - naltrexone mood disorder - sertraline VTE ppx - SCDs, add heparin Full code neeed for inpatient: Hypotension, UTI need for IV Abx and acute dialysis. his updated . Quality Stroke Does the patient have a stroke diagnosis?: No VTE Prior VTE?: No VTE Risk Level:: Medical - moderate - high VTE Device Contraindication: Treatment Not Indicated VTE Drug Contraindication: N/A - Med Ordered
[2023-07-25 16:00] VITALS: BP 92/49; PULSE 69; RESP 16; TEMP 36.4; O2SAT 98
[2023-07-25] MEDS: 0.9 % Sodium Chloride Flush 3 ML SYRINGE IVFLUSH (16:41)
[2023-07-25 19:59] VITALS: BP 83/41; PULSE 88; RESP 19; TEMP 36.6; O2SAT 92
[2023-07-25] MEDS: Lactulose 20 GM/30 ML SOLUTION 30 GM PO (20:19)
[2023-07-25] MEDS: Gabapentin 100 MG CAPSULE 200 MG PO (20:42)
--- NOTE | 2023-07-25 20:48 | PC.NURSE ---
pt refused all night time medications, pt informed of risk of not taking midodrine. pt states i dont care . Pt informed of low BP and the need for the medication. MD aware of refusal, when charting medications, this RN unchrated morning gabapentin which was given according to original charting
[2023-07-26] VITALS (7 sets, daily range): BP systolic 80–100; BP diastolic 43–57; PULSE 66–73; RESP 16–20; TEMP 36–36.6; O2SAT 90–99
--- NOTE | 2023-07-26 07:07 | PC.NURSE ---
pateint refused all medications on shift and was educated about risks of not taking medication and low blood pressures
--- NOTE | 2023-07-26 10:20 | MHC.CM.PN ---
EMR REVIEWED, PER HOSPITALIST ANTIC PT WILL REMAININPT THROUGFH W/E NEPHRO WILL CONT HD NEXT WEEK, CM WILL CONT TO FOLLOW DC NEEDS.
[2023-07-26] MEDS: Sertraline HCL 100 MG TABLET PO (10:22)
[2023-07-26] MEDS: Midodrine HCl 10 MG TABLET PO ×4 (10:22→20:27)
[2023-07-26] MEDS: Gabapentin 100 MG CAPSULE 200 MG PO (10:22)
[2023-07-26] MEDS: Multivitamin TABLET 1 TAB PO (10:23)
[2023-07-26] MEDS: Docusate Sodium 100 MG CAPSULE PO (10:23)
[2023-07-26] MEDS: Heparin Sodium,Porcine 5,000 UNIT/ML VIAL 5000 UNIT SUBCUT ×2 (10:23→16:27)
[2023-07-26] MEDS: rifAXIMin 550 MG TABLET PO ×2 (10:23→20:26)
[2023-07-26] MEDS: Thiamine HCL 100 MG TABLET PO (10:23)
[2023-07-26] MEDS: Naltrexone HCl 50 MG TABLET PO (10:23)
[2023-07-26] MEDS: Sodium Bicarbonate 650 MG TABLET PO ×3 (10:25→16:27)
[2023-07-26] MEDS: 0.9 % Sodium Chloride Flush 3 ML SYRINGE IVFLUSH ×3 (10:25→20:27)
--- NOTE | 2023-07-26 15:00 | P.PNNP_ITS ---
Subjective Subjective Date of Service: 07/26/23 Interval history: Events noted. All recent data reviewed. Discussed with the hospitalist Physical Exam 2 Vital Signs: Vital Signs: Last Vital Signs Temp 97.6 F 07/26/23 12:00 Pulse 69 07/26/23 12:00 Resp 16 07/26/23 12:00 BP 86/57 L 07/26/23 12:00 Pulse Ox 98 07/26/23 12:00 O2 Del Method Room Air 07/26/23 12:00 BMI result Body Mass Index 21.4 Const: General: comfortable and no acute distress HEENT: Head: Yes normocephalic Mouth: Normal oral and palatal mucosa present Eyes: EOM: EOMs intact bilaterally Neck: Neck: Yes supple Resp: Auscultation: clear to auscultation bilaterally Cardio: Jugular venous distension: no JVD Rate: regular rate GI: Palpation (GI): Soft to palpation Auscultation: normal bowel sounds : General: Yes no CVA tenderness Back/Spine/Pelvis: Back: no CVA tenderness Skin: General skin exam: no rashes or lesions noted Neuro: General: moves all extremities Objective Data Labs 07/20/23 16:22 07/20/23 15:42 Microbiology Microbiology Results: Microbiology 07/20/23 18:50 Urine Catheterized - Gordon Catheter Urine Culture - Preliminary Enterococcus faecium Yeast 07/20/23 21:21 Blood - Venous Blood Culture - Final No growth after 5 days. 07/24/23 14:25 Blood - Subclavian Blood Culture - Preliminary No growth after 24 hours. 07/20/23 20:31 Blood - Venous Blood Culture - Final Procedures Date of Service Date of Service: 07/26/23 Assessment & Plan Assessment and plan (1) Acute on chronic renal failure: Status: Acute Plan Renal failure in a setting of Cirrhosis Dialysis dependent for the past 3 weeks Unable to tolerate dialysis due to low BP despite high dose of Midodrine Failure to thrive UTI - agree with antibiotic coverage Midodrine to 10 mg 4 times a day Could reduce HD to twice a week; next HD tomorrow Overall prognosis guarded; if unable to tolerate dialysis, needs to have family meeting to transition to palliative care Progress Note: Quality Stroke Does the patient have a stroke diagnosis?: No
--- NOTE | 2023-07-26 16:23 | HO.PM.IMPN ---
Subjective Subjective Date of Service: 07/26/23 Interval History: boderline bp Review of Systems denies any new c/o Physical Exam Vital Signs: Vital Signs: Last Vital Signs Temp 96.8 F 07/26/23 15:44 Pulse 66 07/26/23 15:44 Resp 16 07/26/23 15:44 BP 80/46 L 07/26/23 15:44 Pulse Ox 97 07/26/23 15:44 O2 Del Method Room Air 07/26/23 15:44 BMI result Body Mass Index 21.4 General: oriented to self, and place, no acute distress Resp: CTA bilateral CVS: S1,S2,RRR GI: +BS, NT, no distention Skin: No rash Neuro: motor grossly intact Psych: appropriate affect Objective Data Active Medications Acetaminophen (Acetaminophen 325 Mg Tablet) 650 mg PO Q6H PRN PRN Reason: Pain, Mild (Pain Scale 1-3) Al Hydroxide/Mg Hydroxide (Magnesium Hydrox/Alum Hydrox 30 Ml Oral.Susp) 30 ml PO Q4H PRN PRN Reason: Heartburn/Nausea Bisacodyl (Bisacodyl 10 Mg Supp.Rect) 10 mg DC DAILY PRN PRN Reason: Constipation Docusate Sodium (Docusate Sodium 100 Mg Capsule) 100 mg PO BID [facility] Last Admin: 07/26/23 10:23 Dose: 100 mg Documented By: HEATH Gabapentin (Gabapentin 100 Mg Capsule) 200 mg PO DAILY@0900 [facility] Last Admin: 07/26/23 10:22 Dose: 200 mg Documented By: HEATH Heparin Sodium (Porcine) (Heparin Sodium,Porcine 5,000 Unit/Ml Vial) 5,000 unit SUBCUT Q8H [facility] Last Admin: 07/26/23 10:23 Dose: 5,000 unit Documented By: HEATH Lactulose (Lactulose 20 Gm/30 Ml Solution) 30 gm PO BID [facility] Last Admin: 07/26/23 10:41 Dose: Not Given Documented By: HEATH Non-Admin Reason: Patient Refused Linezolid (Linezolid 600 Mg Tablet) 600 mg PO Q12H [facility] Last Admin: 07/26/23 07:06 Dose: Not Given Documented By: MARY Non-Admin Reason: Patient Refused Melatonin (Melatonin 3 Mg Tablet) 3 mg PO BEDTIME [facility] Last Admin: 07/25/23 20:47 Dose: Not Given Documented By: MARY Non-Admin Reason: Patient Refused Midodrine (Midodrine Hcl 10 Mg Tablet) 10 mg PO QID [facility] Last Admin: 07/26/23 13:34 Dose: 10 mg Documented By: HEATH Multivitamins/Vitamin C (Multivitamin Tablet) 1 tab PO DAILY@0900 [facility] Last Admin: 07/26/23 10:23 Dose: 1 tab Documented By: HEATH Naltrexone HCl (Naltrexone Hcl 50 Mg Tablet) 50 mg PO DAILY@0900 [facility] Last Admin: 07/26/23 10:23 Dose: 50 mg Documented By: HEATH Omeprazole (Omeprazole 20 Mg Capsule.Dr) 20 mg PO DAILY@06 [facility] Last Admin: 07/26/23 07:07 Dose: Not Given Documented By: MARY Non-Admin Reason: Patient Refused Ondansetron HCl (Ondansetron Hcl 4 Mg/2 Ml Vial) 4 mg IVPUSH Q8H PRN PRN Reason: Nausea and Vomiting Rifaximin (Rifaximin 550 Mg Tablet) 550 mg PO BID [facility] Last Admin: 07/26/23 10:23 Dose: 550 mg Documented By: HEATH Senna (Sennosides 8.6 Mg Tablet) 17.2 mg PO BEDTIME PRN PRN Reason: Constipation Sertraline HCl (Sertraline Hcl 100 Mg Tablet) 100 mg PO DAILY@0900 [facility] Last Admin: 07/26/23 10:22 Dose: 100 mg Documented By: HEATH Sodium Bicarbonate (Sodium Bicarbonate 650 Mg Tablet) 650 mg PO TID@0900,1400,1800 [facility] Last Admin: 07/26/23 13:34 Dose: 650 mg Documented By: HEATH Sodium Biphosphate/Sodium Phosphate (Sodium Phosphate,[place]-Dibasic 133 Ml Enema) 118 ml DC DAILY PRN PRN Reason: Constipation Sodium Chloride (0.9 % Sodium Chloride Flush 3 Ml Syringe) 3 ml IVFLUSH QSHIFT [facility] Last Admin: 07/26/23 10:25 Dose: 3 ml Documented By: HAETH Thiamine HCl (Thiamine Hcl 100 Mg Tablet) 100 mg PO DAILY@0900 [facility] Last Admin: 07/26/23 10:23 Dose: 100 mg Documented By: HEATH Labs 07/20/23 16:22 07/20/23 15:42 Microbiology Microbiology Results: Microbiology 07/20/23 18:50 Urine Culture - Preliminary Urine Catheterized - Gordon Catheter Enterococcus faecium Yeast 07/20/23 21:21 Blood Culture - Final Blood - Venous No growth after 5 days. 07/24/23 14:25 Blood Culture - Preliminary Blood - Subclavian No growth after 24 hours. Assessment and Plan (1) Sepsis: Status: Acute (2) Acute UTI: Status: Acute Plan 67/m with ESRD on HD, cirrhosis of liver d/t alcohol brought from dialysis with AMS, N/V , Hypotension AMS/Encephalpathy d/t UTI -treat underlying UTI with Ceftriaxone and doxy Id eval. Severe sepsis d/t UTI, sepsis resovled -s/p IVF per sepsis, continue IVF, urine culture = gram positive cocci, sensitivity pending Hypotension--bp flactuates ,this a chronic issues and is on high dose of midodrine 10 qid and making it challenging to dialysis plan is to give midodrine 10 mg in am and then give another midodrine dose during Hd to see if he tolerates HD. Abd pain, likely from constipation, resolved and has had bowel movement CKD now ESRD on permanent dialsysis now, unfortunately doesn't tolerate dialysis d/t hypotension.. Dialysis TTS chronic HFrEF 30-35% - no acute decompensation hx DM2 - A1c only 5.3, no meds necessary AUD - naltrexone mood disorder - sertraline VTE ppx - SCDs, add heparin Full code neeed for inpatient: Hypotension, UTI need for IV Abx and acute dialysis. his updated . Quality Stroke Does the patient have a stroke diagnosis?: No VTE Prior VTE?: No VTE Risk Level:: Medical - moderate - high VTE Device Contraindication: Treatment Not Indicated VTE Drug Contraindication: N/A - Med Ordered
[2023-07-26] MEDS: Linezolid 600 MG TABLET PO (16:27)
[2023-07-26] MEDS: Melatonin 3 MG TABLET PO (20:26)
[2023-07-27] VITALS (10 sets, daily range): BP systolic 68–104; BP diastolic 42–58; PULSE 68–85; RESP 16–18; TEMP 36–36.3; O2SAT 92–100
[2023-07-27] MEDS: Midodrine HCl 10 MG TABLET PO ×5 (06:08→23:32)
--- NOTE | 2023-07-27 07:49 | HO.PM.IMPN ---
Subjective Subjective Date of Service: 07/27/23 Interval History: boderline bp Review of Systems no new symptoms Physical Exam Vital Signs: Vital Signs: Last Vital Signs Temp 97.3 F 07/27/23 04:00 Pulse 68 07/27/23 04:00 Resp 18 07/27/23 04:00 BP 96/58 L 07/27/23 04:00 Pulse Ox 98 07/27/23 04:00 O2 Del Method Room Air 07/27/23 04:00 BMI result Body Mass Index 21.4 General: oriented to self, and place, no acute distress Resp: CTA bilateral CVS: S1,S2,RRR GI: +BS, NT, no distention Skin: No rash Neuro: motor grossly intact Psych: appropriate affect Objective Data Active Medications Acetaminophen (Acetaminophen 325 Mg Tablet) 650 mg PO Q6H PRN PRN Reason: Pain, Mild (Pain Scale 1-3) Al Hydroxide/Mg Hydroxide (Magnesium Hydrox/Alum Hydrox 30 Ml Oral.Susp) 30 ml PO Q4H PRN PRN Reason: Heartburn/Nausea Bisacodyl (Bisacodyl 10 Mg Supp.Rect) 10 mg [place] DAILY PRN PRN Reason: Constipation Docusate Sodium (Docusate Sodium 100 Mg Capsule) 100 mg PO BID [facility] Last Admin: 07/26/23 20:31 Dose: Not Given Documented By: MAYCO Non-Admin Reason: Patient Refused Gabapentin (Gabapentin 100 Mg Capsule) 200 mg PO DAILY@0900 [facility] Last Admin: 07/26/23 10:22 Dose: 200 mg Documented By: HEATH Heparin Sodium (Porcine) (Heparin Sodium,Porcine 5,000 Unit/Ml Vial) 5,000 unit SUBCUT Q8H [facility] Last Admin: 07/27/23 02:12 Dose: Not Given Documented By: MAYCO Non-Admin Reason: Patient Refused Lactulose (Lactulose 20 Gm/30 Ml Solution) 30 gm PO BID [facility] Last Admin: 07/26/23 20:31 Dose: Not Given Documented By: MAYCO Non-Admin Reason: Patient Refused Linezolid (Linezolid 600 Mg Tablet) 600 mg PO Q12H [facility] Last Admin: 07/27/23 05:53 Dose: Not Given Documented By: MAYCO Non-Admin Reason: prior to HD Melatonin (Melatonin 3 Mg Tablet) 3 mg PO BEDTIME [facility] Last Admin: 07/26/23 20:26 Dose: 3 mg Documented By: MAYCO Midodrine (Midodrine Hcl 10 Mg Tablet) 10 mg PO QID [facility] Last Admin: 07/27/23 06:08 Dose: 10 mg Documented By: MAYCO Comments: per Dr. Roa can give now as pt. at now. Maye informed. Multivitamins/Vitamin C (Multivitamin Tablet) 1 tab PO DAILY@0900 [facility] Last Admin: 07/26/23 10:23 Dose: 1 tab Documented By: HEATH Naltrexone HCl (Naltrexone Hcl 50 Mg Tablet) 50 mg PO DAILY@0900 [facility] Last Admin: 07/26/23 10:23 Dose: 50 mg Documented By: HEATH Omeprazole (Omeprazole 20 Mg Capsule.) 20 mg PO DAILY@0600 [facility] Last Admin: 07/27/23 05:53 Dose: Not Given Documented By: MAYCO Non-Admin Reason: prior to HD-pt. declined Ondansetron HCl (Ondansetron Hcl 4 Mg/2 Ml Vial) 4 mg IVPUSH Q8H PRN PRN Reason: Nausea and Vomiting Rifaximin (Rifaximin 550 Mg Tablet) 550 mg PO BID [facility] Last Admin: 07/26/23 20:26 Dose: 550 mg Documented By: MAYCO Senna (Sennosides 8.6 Mg Tablet) 17.2 mg PO BEDTIME PRN PRN Reason: Constipation Sertraline HCl (Sertraline Hcl 100 Mg Tablet) 100 mg PO DAILY@0900 [facility] Last Admin: 07/26/23 10:22 Dose: 100 mg Documented By: HEATH Sodium Bicarbonate (Sodium Bicarbonate 650 Mg Tablet) 650 mg PO TID@0900,1400,1800 [facility] Last Admin: 07/26/23 16:27 Dose: 650 mg Documented By: HEATH Sodium Biphosphate/Sodium Phosphate (Sodium Phosphate,[place]-Dibasic 133 Ml Enema) 118 ml NC DAILY PRN PRN Reason: Constipation Sodium Chloride (0.9 % Sodium Chloride Flush 3 Ml Syringe) 3 ml IVFLUSH QSHIFT [facility] Last Admin: 07/26/23 20:27 Dose: 3 ml Documented By: MAYCO Thiamine HCl (Thiamine Hcl 100 Mg Tablet) 100 mg PO DAILY@0900 [facility] Last Admin: 07/26/23 10:23 Dose: 100 mg Documented By: HEATH Labs 07/20/23 16:22 07/20/23 15:42 Microbiology Microbiology Results: Microbiology 07/24/23 14:25 Blood Culture - Preliminary Blood - Subclavian No growth after 48 hours. 07/20/23 18:50 Urine Culture - Preliminary Urine Catheterized - Gordon Catheter Enterococcus faecium Yeast Assessment and Plan (1) Sepsis: Status: Acute (2) Acute UTI: Status: Acute Plan 67/m with ESRD on HD, cirrhosis of liver d/t alcohol brought from dialysis with AMS, N/V , Hypotension AMS/Encephalpathy d/t UTI -treat underlying UTI with Ceftriaxone and doxy Id eval. Severe sepsis d/t UTI, sepsis resovled -s/p IVF per sepsis, continue IVF, urine culture = gram positive cocci, sensitivity pending Hypotension--bp flactuates ,this a chronic issues and is on high dose of midodrine 10 qid and making it challenging to dialysis plan is to give midodrine 10 mg in am and then give another midodrine dose during Hd to see if he tolerates HD. Abd pain, likely from constipation, resolved and has had bowel movement CKD now ESRD on permanent dialsysis now, unfortunately doesn't tolerate dialysis d/t hypotension.. Dialysis TTS chronic HFrEF 30-35% - no acute decompensation hx DM2 - A1c only 5.3, no meds necessary AUD - naltrexone mood disorder - sertraline VTE ppx - SCDs, add heparin Full code neeed for inpatient: bodelrine bp, UTI need for IV Abx and acute dialysis. his updated . Quality Stroke Does the patient have a stroke diagnosis?: No VTE Prior VTE?: No VTE Risk Level:: Medical - moderate - high VTE Device Contraindication: Treatment Not Indicated VTE Drug Contraindication: N/A - Med Ordered
[2023-07-27] MEDS: Sodium Bicarbonate 650 MG TABLET PO ×2 (13:59→17:22)
[2023-07-27] MEDS: 0.9 % Sodium Chloride Flush 3 ML SYRINGE IVFLUSH (13:59)
[2023-07-27] MEDS: 0.9 % Sodium Chloride 500 ML 250 ML IVCONT (16:33)
[2023-07-27] MEDS: Heparin Sodium,Porcine 5,000 UNIT/ML VIAL 5000 UNIT SUBCUT (17:20)
[2023-07-27] MEDS: Linezolid 600 MG TABLET PO (17:21)
[2023-07-27] MEDS: 0.9 % Sodium Chloride 500 ML IV (21:09)
[2023-07-27] MEDS: Albumin Human 25 % 100 ML 133.33 ML IV ×2 (22:28→23:28)
[2023-07-28] VITALS (18 sets, daily range): BP systolic 63–113; BP diastolic 29–58; PULSE 71–97; RESP 14–21; TEMP 35.6–37.3; O2SAT 92–99
[2023-07-28] MEDS: Midodrine HCl 10 MG TABLET PO ×3 (08:50→16:20)
[2023-07-28] MEDS: ondansetron HCL 4 MG/2 ML VIAL IVPUSH ×2 (08:50→15:01)
[2023-07-28 09:05] LABS: Glucose, Whole Blood 94 mg/dL (60-115)
[2023-07-28] MEDS: Albumin Human 25 % 100 ML IV ×3 (10:21→17:46)
[2023-07-28] MEDS: 0.9 % Sodium Chloride 1,000 ML 250 ML IVCONT (10:23)
[2023-07-28] MEDS: 0.9 % Sodium Chloride Flush 3 ML SYRINGE IVFLUSH ×3 (10:27→22:05)
[2023-07-28 11:07] LABS: Glucose, Whole Blood 104 mg/dL (60-115)
--- NOTE | 2023-07-28 12:22 | HO.PM.IMPN ---
Subjective Subjective Date of Service: 07/28/23 Interval History: bp flactuates mostly in low 90's Review of Systems asymptomatic seems similar no fevers Review of Systems: Yes all other systems are reviewed and are negative Physical Exam Vital Signs: Vital Signs: Last Vital Signs Temp 97.4 F 07/28/23 10:59 Pulse 80 07/28/23 10:59 Resp 18 07/28/23 10:59 BP 89/48 L 07/28/23 10:59 Pulse Ox 95 07/28/23 10:59 O2 Del Method Room Air 07/28/23 10:59 BMI result Body Mass Index 21.4 General: oriented to self, and place, no acute distress Resp: CTA bilateral CVS: S1,S2,RRR GI: +BS, NT, no distention Skin: No rash Neuro: motor grossly intact Psych: appropriate affect Objective Data Active Medications Acetaminophen (Acetaminophen 325 Mg Tablet) 650 mg PO Q6H PRN PRN Reason: Pain, Mild (Pain Scale 1-3) Al Hydroxide/Mg Hydroxide (Magnesium Hydrox/Alum Hydrox 30 Ml Oral.Susp) 30 ml PO Q4H PRN PRN Reason: Heartburn/Nausea Bisacodyl (Bisacodyl 10 Mg Supp.Rect) 10 mg TX DAILY PRN PRN Reason: Constipation Docusate Sodium (Docusate Sodium 100 Mg Capsule) 100 mg PO BID [facility] Last Admin: 07/28/23 10:07 Dose: Not Given Documented By: JOHNNY Non-Admin Reason: must be crushed Gabapentin (Gabapentin 100 Mg Capsule) 200 mg PO DAILY@0900 [facility] Last Admin: 07/28/23 10:29 Dose: Not Given Documented By: JOHNNY Non-Admin Reason: Patient Refused Dextrose/Sodium Chloride (D51/2ns) 1,000 mls @ 50 mls/hr IVCONT .Q20H [facility] Albumin Human (Kedbumin 25 %) 100 mls @ 100 mls/hr IV Q6H [facility] Stop: 07/29/23 03:59 Last Admin: 07/28/23 10:21 Dose: 100 mls/hr Documented By: JOHNNY Sodium Chloride (Ns) 1,000 mls @ 250 mls/hr IVCONT .Q4H [facility] Stop: 07/28/23 14:14 Last Admin: 07/28/23 10:23 Dose: 250 mls/hr Documented By: JOHNNY Lactulose (Lactulose 20 Gm/30 Ml Solution) 30 gm PO BID [facility] Last Admin: 07/28/23 10:29 Dose: Not Given Documented By: JOHNNY Non-Admin Reason: Patient Refused Linezolid (Linezolid 600 Mg Tablet) 600 mg PO Q12H [facility] Last Admin: 07/28/23 08:09 Dose: Not Given Documented By: JOHNNY Non-Admin Reason: NPO Melatonin (Melatonin 3 Mg Tablet) 3 mg PO BEDTIME [facility] Last Admin: 07/27/23 21:56 Dose: Not Given Documented By: MAYCO Non-Admin Reason: vomited Midodrine (Midodrine Hcl 10 Mg Tablet) 10 mg PO QID [facility] Last Admin: 07/28/23 08:50 Dose: 10 mg Documented By: JOHNNY Multivitamins/Vitamin C (Multivitamin Tablet) 1 tab PO DAILY@0900 [facility] Last Admin: 07/28/23 10:29 Dose: Not Given Documented By: JOHNNY Non-Admin Reason: Patient Refused Naltrexone HCl (Naltrexone Hcl 50 Mg Tablet) 50 mg PO DAILY@0900 [facility] Last Admin: 07/28/23 10:30 Dose: Not Given Documented By: JOHNNY Non-Admin Reason: Patient Refused Omeprazole (Omeprazole 20 Mg Capsule.Dr) 20 mg PO DAILY@0600 [facility] Last Admin: 07/28/23 08:10 Dose: Not Given Documented By: JOHNNY Non-Admin Reason: NPO Ondansetron HCl (Ondansetron Hcl 4 Mg/2 Ml Vial) 4 mg IVPUSH Q8H PRN PRN Reason: Nausea and Vomiting Rifaximin (Rifaximin 550 Mg Tablet) 550 mg PO BID [facility] Last Admin: 07/28/23 10:30 Dose: Not Given Documented By: JOHNNY Non-Admin Reason: Patient Refused Senna (Sennosides 8.6 Mg Tablet) 17.2 mg PO BEDTIME PRN PRN Reason: Constipation Sertraline HCl (Sertraline Hcl 100 Mg Tablet) 100 mg PO DAILY@0900 [facility] Last Admin: 07/28/23 10:30 Dose: Not Given Documented By: JOHNNY Non-Admin Reason: Patient Refused Sodium Bicarbonate (Sodium Bicarbonate 650 Mg Tablet) 650 mg PO TID@0900,1400,1800 [facility] Last Admin: 07/28/23 10:30 Dose: Not Given Documented By: JOHNNY Non-Admin Reason: Patient Refused Sodium Biphosphate/Sodium Phosphate (Sodium Phosphate,[place]-Dibasic 133 Ml Enema) 118 ml TX DAILY PRN PRN Reason: Constipation Sodium Chloride (0.9 % Sodium Chloride Flush 3 Ml Syringe) 3 ml IVFLUSH QSHIFT [facility] Last Admin: 07/28/23 10:27 Dose: 3 ml Documented By: JOHNNY Thiamine HCl (Thiamine Hcl 100 Mg Tablet) 100 mg PO DAILY@0900 [facility] Last Admin: 07/28/23 10:30 Dose: Not Given Documented By: JOHNNY Non-Admin Reason: Patient Refused Labs 07/20/23 16:22 07/20/23 15:42 Labs: Laboratory Results - last 24 hr 07/28/23 07/28/23 09:01 11:03 POC Glucose 94 104 Microbiology Microbiology Results: Microbiology 07/20/23 18:50 Urine Culture - Final Urine Catheterized - Gordon Catheter Enterococcus faecium Yesy glabrata Assessment and Plan (1) Sepsis: Status: Acute (2) Acute UTI: Status: Acute Plan 67/m with ESRD on HD, cirrhosis of liver d/t alcohol brought from dialysis with AMS, N/V , Hypotension AMS/Encephalpathy d/t UTI treat underlying UTI with Ceftriaxone and doxy Id eval rec to switch to linezolid. Severe sepsis d/t UTI s/p IVF per sepsis, off fluids , (sepsis resovled) urine culture Enterococcus faecium sensitivitive to linezolid. Hypotension--bp flactuates ,this a chronic issues and is on high dose of midodrine 10 qid and making it challenging to dialysis he had HD yesterday-bp flactuating on/off-continue midodrine 10 mg qid ,added ns 250 ml 1 time bolus /albumin Abd pain, likely from constipation, resolved and passing bm's. CKD now ESRD on permanent dialsysis now, unfortunately doesn't tolerate dialysis d/t hypotension.. Dialysis TTS chronic HFrEF 30-35% - no acute decompensation hx DM2 - A1c only 5.3, no meds necessary AUD - naltrexone mood disorder - sertraline VTE ppx - SCDs, add heparin Full code neeed for inpatient: bodelrine bp, UTI need for IV Abx and acute dialysis. his updated . Quality Stroke Does the patient have a stroke diagnosis?: No VTE Prior VTE?: No VTE Risk Level:: Medical - moderate - high VTE Device Contraindication: Treatment Not Indicated VTE Drug Contraindication: N/A - Med Ordered
[2023-07-28] MEDS: Lactulose 20 GM/30 ML SOLUTION 30 GM PO (13:32)
[2023-07-28] MEDS: Clotrimazole 1 % Cream 15 GM TUBE 1 APPL TOPICAL (15:01)
[2023-07-28] MEDS: Nystatin Powder 15 GM BOTTLE 1 APPL TOPICAL (15:01)
[2023-07-28] MEDS: 0.9 % Sodium Chloride 250 ML IVCONT ×2 (15:04→18:09)
[2023-07-28] MEDS: Pantoprazole Sodium 40 MG/10 ML VIAL IVPUSH (16:01)
[2023-07-28 17:12] LABS: Hematocrit 24.9 % (42.0-52.0); Hemoglobin 8.5 g/dl (14.0-18.0); Mean Corpuscular HGB Conc 34.1 g/dl (31.0-36.0); Mean Corpuscular Hemoglobin 31.8 pg (27.0-33.0); Mean Corpuscular Volume 93.3 fL (80.0-98.0); Mean Platelet Volume 10.7 fL (9.4-12.4); PLT CLUMP 1; Red Blood Count 2.67 X10*6/uL (4.60-5.80); Red Cell Distribution Width 15.2 % (11.0-16.0)
[2023-07-28 17:34] LABS: Platelet Count 47 X10*3/uL (160-400); White Blood Count 7.1 X10*3/uL (4.8-10.8)
[2023-07-28 18:03] LABS: Anion Gap 22 (12-20); Blood Urea Nitrogen 21 mg/dL (9-16); Calcium 9.4 mg/dL (8.4-10.2); Carbon Dioxide 18 mmol/L (22-29); Chloride 105 mmol/L (96-108); Creatinine Clr Calc Pharmacy 15.7; Estimated Glomerular Filt Rate 15; Glucose Random 118 mg/dL (60-115); Potassium 4.2 mmol/L (3.3-5.1); Sodium 141 mmol/L (135-145)
[2023-07-28] MEDS: 0.9 % Sodium Chloride 500 ML 250 ML IVCONT (18:12)
[2023-07-28 18:19] LABS: Iron 55 mcg/dL (45-160); Percent Iron Saturation 69 % (15-50); Total Iron Binding Capacity 80 mcg/dL (228-428); Unsaturated Iron Binding < 25 ug/dL
[2023-07-28] MEDS: Midodrine HCl 5 MG TABLET 15 MG PO (18:20)
[2023-07-28] MEDS: Norepinephrine Bitartrate/D5W 8 MG/250 ML PLAST..BAG 5.99 MG IV (18:40)
[2023-07-28] MEDS: Linezolid/D5W 600 MG/300 ML PIGGYBACK 300 MG IV (19:40)
--- NOTE | 2023-07-28 19:40 | P.CONCC_ITS ---
Documented by User: MICHAEL Pierce 07/29/23 03:53 History of Present Illness Data of Consult Service Date: 07/28/23 Requesting physician: Lianne Blanco Primary Care Provider: DONNA CHISHOLM HPI Reason for consult: Refractory Hypotension Reason for consult:? Refractory hypotension Source of history:? Patient's chart HPI: ?67-year-old transferred from the medical floor where he had been medically treated since the date of admission on 07/20/2023 due to mental status changes and hypotension.? The patient has underlying history of chronic liver disease secondary to alcoholism, ascites requiring recurrent paracentesis, portal hypertension, hepatic encephalopathy along with metabolic encephalopathy and chronic mental status changes, forgetfulness, inability to ambulate, type 2 diabetes, CHF with EF of 30-35%, end-stage renal disease on dialysis Saturday and Saturdays, among multiple other things. As above-mentioned, the patient had been admitted due to hypotension and mental status changes, he had also been hypoxic requiring 6 L nasal cannula workup at the time revealed no actual infection, CT of the abdomen showed constipation with stool ball, patient has been treated conservatively, given IV fluids and reportedly his hypotension and encephalopathy improved.? Patient is on midodrine, patient was later diagnosed with a UTI and had been initially treated with Rocephin and doxycycline but later seen by infectious disease who recommended switching to linezolid; however upon review, it seems that the last urinalysis was 8 days ago. While in the hospital the patient has had ongoing hypotension with intermittent episodes of a normal blood pressure which was shortly lived after administration of midodrine.? It seems that the blood pressure significantly decreases with hemodialysis for which he has needed albumin, midodrine and events some IV fluid administration. ?To the around 18:00 we were called to see the patient consult and had the request to transfer the patient to ICU given ongoing hypotension and concern for worsening mental status changes, administration of pressors even that the patient's blood pressure has been low throughout the hospitalization. During the interview the patient is not capable of giving a history, responds to basic commands but is unable to follow complex request or answer complex questions. ROS:? Unable to obtain Past Medical History:? As above AUD Mood disorder Anemia of chronic disease Dysphagia Esophageal stricture Past Surgical History: Right PermCath Recurrent paracentesis Family history:? Noncontributory Social History:? Used to live at home, has been hospitalized in and out for the past 7 months, unable to walk or care of himsel.? Long history of alcoholism quit less than a year ago. CODE STATUS: FULL CODE Allergies: NKDA Home Medications: See Med Rec PHYSICAL EXAM: VS: ?80/34, 71, 16, 96% on room air, 96.1 General:? Somewhat obtunded, alert to painful stimuli only, oriented to his name but not to place or time.? Unable to follow complex commands or answer complex questions. ? Skin: ?Hyperpigmented skin of the distal tibialis left more than right. ?Intact, no lesions, edema, erythema, clubbing or cyanosis.? No ulcers. HEENT:? Head is normocephalic, atraumatic, pupils equal and round bilaterally.? Extraocular movements appear intact.? Buccal mucosa is moist, Neck is supple without lymphadenopathy. Cardiac:? Clear S1-S2, no murmurs rubs or gallops. Pulmonary:? Clear to auscultation, no wheezes, rales or rhonchi. Abdomen:? Protuberant, minimal bowel sounds.? Somewhat tense, does not appear to be tender.? Unable to evaluate for hepatosplenomegaly.? Nontender.? No evidence of rigidity, rebound or guarding. Musculoskeletal:? Moving all 4 extremities upon request a major joints, there is no crepitus or tenderness.? The strength is 5/5 bilaterally and throughout all 4 extremities.? There is no leg edema , no calf tenderness , no leg asymmetry.? Gait not assessed at this point. Neurologic:? As above, obtunded, motor exam as above otherwise unable to assess. Vascular:? 2+ pulses upper and lower extremities distally. ?Less than 2nd capillary refill of the finger and toes bilaterally of the upper and lower extremities. SIGNIFICANT LABORATORY DATA:? REVIEW OF IMAGES: Chest x-ray from today shows retrocardiac opacity, unchanged.? No new airspace consolidation.? Right-sided central venous catheter in unchanged position. EKG REVIEW: ?Sinus rhythm with evidence of first-degree block rate 81 beats per minute.? No ST elevations, no ST depressions.? Age-indeterminate changes in the anterior lateral leads.? No comparison available.? LVH criteria. ASSESSMENT : 1. Refractory hypotension 2. Urinary tract infection post treatment, I do not think he is septic and I questioned if he has an ongoing infection versus colonization 3. Anemia of chronic disease 4. Thrombocytopenia acute on chronic 5. End-stage renal disease unable to tolerate hemodialysis sessions 6. Alcohol related dementia 7. Chronic orthostatic hypotension leading to recurrent falls PLAN OF CARE: Patient was transferred to ICU, monitor vital signs, I and O's, patient had been started on Levophed, will give albumin, order lactic acid, blood cultures, if able to obtain urine, will repeat a urinalysis, ammonia level.? I do not think the patient should continue on IV fluids which I will stop for am concerned that he will go into heart failure, we rather increase his oncotic pressure with albumin. Clinically speaking I do not suspect sepsis, although his abdomen is somewhat distended, I do not suspect that he has SBP.? I do not hear any adventitious lung sounds and I do not suspect a pneumonia. I wonder if he has some type of adrenal insufficiency, will give him a single dose of hydrocortisone IV.? Even though his platelets are low, there is no evidence of bleeding.? Will monitor H&H. ?Head of bed at 30 degree angle with aspiration precautions, will discontinue oral medications for I do not think that he is capable of taking anything p.o. at this point. Given the patient's clinical presentation ongoing decline over the past 7 months, poor quality of life without any type of improvement, I will set up a discussion with the patient's family members for goals of care discussion. GI PROPHYLAXIS: ?Protonix IV. DVT PROPHYLAXIS:? Pneumatic stockings only, platelets low, unable to give heparin. Critical care time used for critical evaluation of this patient, diagnosis, treatment and coordination of care, review her records and documentation TOTAL CRITICAL CARE TIME??? 90 MIN . discussion and coordination with consultants, completely separate from any procedures performed. Patient's care was discussed in detail with Dr. Garcia who is aware of all the above as well as the plan of care for this patient. 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 Orthostatic hypotension Chronic liver disease Type 2 diabetes mellitus Family History Family history: reviewed and not pertinent Social History Social History Household Members: None Housing: Assisted Living Facility Do you presently have visiting nurse or other home services: Yes Unable to assess alcohol history related to: Unknown Alcohol intake: former Patient Tobacco Use Status: Former Tobacco user Smoked in Last 30 Days: No Use of substances other than those prescribed or required for medical reasons: No Substance Use Type: Marijuana Currently Displaying Signs/Symptoms of Drug Intoxication Withdrawal: No Have you been hit, kicked, punched, or otherwise hurt by someone within the past year? If so, by whom?: No Do you feel safe in your current relationship?: No Current Relationship Is there a partner from a previous relationship who is making you feel unsafe now?: No Are you made to feel afraid or neglected: No Advance Directives: Yes Advance Directives on File: Yes Advance Directives Date on File: 05/31/23 Do you have a plan to hurt others: No Plan Nutrition Risks: Dental problems Poor oral hygiene: Yes service: No Meds Allergies Allergy/AdvReac Type Severity Reaction Status Date / Time lisinopril Allergy Angioedema Verified 07/20/23 14:45 scallops Allergy Angioedema Verified 07/20/23 14:45 Active Medications: Current Medications Acetaminophen (Acetaminophen 325 Mg Tablet) 650 mg PO Q6H PRN PRN Reason: Pain, Mild (Pain Scale 1-3) Al Hydroxide/Mg Hydroxide (Magnesium Hydrox/Alum Hydrox 30 Ml Oral.Susp) 30 ml PO Q4H PRN PRN Reason: Heartburn/Nausea Bisacodyl (Bisacodyl 10 Mg Supp.Rect) 10 mg ND DAILY PRN PRN Reason: Constipation Clotrimazole (Clotrimazole 1 % Cream 15 Gm Tube) 1 appl TOPICAL BID MIRIAM; Protocol Last Admin: 07/28/23 15:01 Dose: 1 appl Docusate Sodium (Docusate Sodium 100 Mg Capsule) 100 mg PO BID MIRIAM Last Admin: 07/28/23 10:07 Dose: Not Given Dextrose/Sodium Chloride (D51/2ns) 1,000 mls @ 50 mls/hr IVCONT .Q20H [facility] Last Admin: 07/28/23 15:06 Dose: Not Given Albumin Human (Kedbumin 25 %) 100 mls @ 100 mls/hr IV Q6H [facility] Stop: 07/29/23 03:59 Last Infusion: 07/28/23 19:20 Dose: Infused Linezolid (Zyvox/D5w) 600 mg in 300 mls @ 300 mls/hr IV Q12H MIRIAM Sodium Chloride (Ns) 500 mls @ 250 mls/hr IVCONT .Q2H [facility] Stop: 07/28/23 19:59 Last Infusion: 07/28/23 19:21 Dose: 0 mls/hr Norepinephrine Bitartrate (Levophed) 8 mg in 250 mls @ 0 mls/hr IV .Q0M [facility]; Protocol Last Titration: 07/28/23 19:21 Dose: 0.2 mcg/kg/min, 23.96 mls/hr Lactulose (Lactulose 320 Gm/480 Ml Solution) 200 gm ND Q6H [facility] Last Admin: 07/28/23 16:21 Dose: Not Given Melatonin (Melatonin 3 Mg Tablet) 3 mg PO BEDTIME [facility] Last Admin: 07/27/23 21:56 Dose: Not Given Midodrine (Midodrine Hcl 5 Mg Tablet) 15 mg PO Q6H [facility] Last Admin: 07/28/23 18:12 Dose: Not Given Multivitamins/Vitamin C (Multivitamin Tablet) 1 tab PO DAILY@0900 [facility] Last Admin: 07/28/23 10:29 Dose: Not Given Naltrexone HCl (Naltrexone Hcl 50 Mg Tablet) 50 mg PO DAILY@0900 [facility] Last Admin: 07/28/23 10:30 Dose: Not Given Nystatin (Nystatin Powder 15 Gm Bottle) 1 appl TOPICAL TID [facility]; Protocol Last Admin: 07/28/23 15:01 Dose: 1 appl Ondansetron HCl (Ondansetron Hcl 4 Mg/2 Ml Vial) 4 mg IVPUSH Q6H PRN PRN Reason: Nausea and Vomiting Pantoprazole Sodium (Pantoprazole Sodium 40 Mg/10 Ml Vial) 40 mg IVPUSH BID@0630,1630 [facility] Rifaximin (Rifaximin 550 Mg Tablet) 550 mg PO BID [facility] Last Admin: 07/28/23 10:30 Dose: Not Given Senna (Sennosides 8.6 Mg Tablet) 17.2 mg PO BEDTIME PRN PRN Reason: Constipation Sertraline HCl (Sertraline Hcl 100 Mg Tablet) 100 mg PO DAILY@0900 [facility] Last Admin: 07/28/23 10:30 Dose: Not Given Sodium Bicarbonate (Sodium Bicarbonate 650 Mg Tablet) 650 mg PO TID@0900,1400,1800 [facility] Last Admin: 07/28/23 13:13 Dose: Not Given Sodium Biphosphate/Sodium Phosphate (Sodium Phosphate,Mohave-Dibasic 133 Ml Enema) 118 ml ND DAILY PRN PRN Reason: Constipation Sodium Chloride (0.9 % Sodium Chloride Flush 3 Ml Syringe) 3 ml IVFLUSH QSHIFT [facility] Last Admin: 07/28/23 15:01 Dose: 3 ml Thiamine HCl (Thiamine Hcl 100 Mg Tablet) 100 mg PO DAILY@0900 [facility] Last Admin: 07/28/23 10:30 Dose: Not Given Home Medications ?Medication ?Instructions ?Recorded ?Confirmed ?Last Taken ?Type acetaminophen 325 mg tablet 650 mg PO DAILY PRN Fever Or Pain 04/30/23 07/20/23 Unknown History folic acid 1 mg tablet 1 mg PO DAILY@0904/30/23 07/20/23 Unknown History melatonin 3 mg tablet 3 mg PO BEDTIME Sleep 04/30/23 07/20/23 Unknown History midodrine 10 mg tablet 10 mg PO TID 04/30/23 07/20/23 Unknown History multivitamin 1 tab PO DAILY@0904/30/23 07/20/23 Unknown History naltrexone 50 mg tablet 50 mg PO DAILY@89904/30/23 07/20/23 Unknown History pantoprazole 40 mg tablet,delayed 40 mg PO DAILY@0604/30/23 07/20/23 Unknown History release rifaximin 550 mg tablet (Xifaxan) 550 mg PO BID 04/30/23 07/20/23 Unknown History thiamine HCl (vitamin B1) 100 mg 100 mg PO DAILY@89904/30/23 07/20/23 Unknown History tablet bisacodyl 10 mg rectal suppository 10 mg ND DAILY PRN Constipation 05/20/23 07/20/23 Unknown History ondansetron HCl 4 mg tablet 4 mg PO Q4H PRN nausea/vomting 05/20/23 07/20/23 Unknown History nystatin 100,000 unit/gram topical 1 appl topical DAILY 06/16/23 07/20/23 Unknown History powder sodium phosphates 19 gram-7 118 ml ND DAILY PRN Constipation 06/16/23 07/20/23 Unknown History gram/118 mL enema (Fleet Enema) gabapentin 100 mg capsule 200 mg PO DAILY@0900 07/20/23 07/20/23 Unknown History sertraline 100 mg tablet 100 mg PO DAILY@0900 07/20/23 07/20/23 Unknown History sodium bicarbonate 650 mg tablet 650 mg PO TID@0900,1400,1800 07/20/23 07/20/23 Unknown History Physical Exam 2 Vital Signs: Vital Signs: Last Vital Signs Temp 99.2 F 07/28/23 19:16 Pulse 80 07/28/23 19:21 Resp 15 07/28/23 19:16 BP 63/31 L 07/28/23 19:21 Pulse Ox 93 07/28/23 19:16 O2 Del Method Room Air 07/28/23 19:16 BMI result Body Mass Index 21.4 Results Labs 07/28/23 16:58 07/28/23 16:58 Labs: Short CBC 07/28/23 Range/Units 16:58 WBC 7.1 (4.8-10.8) X10*3/uL Hgb 8.5 L (14.0-18.0) g/dl Hct 24.9 L (42.0-52.0) % Plt Count 47 L D (160-400) X10*3/uL BMP 07/28/23 16:58 Sodium 141 Potassium 4.2 D Chloride 105 Carbon Dioxide 18 L BUN 21 H Creatinine 4.01 H* Calcium 9.4 D Microbiology Microbiology Results: Microbiology 07/20/23 18:50 Urine Catheterized - Gordon Catheter Urine Culture - Final Enterococcus faecium Yesy glabrata 07/24/23 14:25 Blood - Subclavian Blood Culture - Preliminary No growth after 48 hours. 07/20/23 21:21 Blood - Venous Blood Culture - Final No growth after 5 days. 07/20/23 20:31 Blood - Venous Blood Culture - Final Assessment and Plan (1) Acute on chronic renal failure: Qualifiers: Acute renal failure type: unspecified Chronic kidney disease stage: u nspecified stage Qualified Code(s): N17.9 - Acute kidney failure, unspecified; N18.9 - Chronic kidney disease, unspecified Status: Acute (2) Renal failure syndrome: Status: Acute (3) Acute UTI: Status: Acute (4) Encephalopathy: Status: Acute (5) Seizure: Status: Acute Documented by User: Claudio Garcia MD 07/28/23 22:49 PMF Past Medical History Medical History Acute on chronic renal failure MCI (mild cognitive impairment) Chronic systolic (congestive) heart failure Acute hepatic encephalopathy Altered mental state Catheter-associated urinary tract infection Depression Cardiomyopathy Ascites due to alcoholic cirrhosis Cirrhosis PENNY (acute kidney injury) Ascites Urinary tract infection GERD (gastroesophageal reflux disease) Hepatic encephalopathy Alcoholic cirrhosis Esophageal stricture Enlarged prostate Chronic indwelling Gordon catheter 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 Orthostatic hypotension Chronic liver disease Type 2 diabetes mellitus Social History Social History Household Members: None Housing: Assisted Living Facility Do you presently have visiting nurse or other home services: Yes Unable to assess alcohol history related to: Unknown Alcohol intake: former Patient Tobacco Use Status: Former Tobacco user Smoked in Last 30 Days: No Use of substances other than those prescribed or required for medical reasons: No Substance Use Type: Marijuana Currently Displaying Signs/Symptoms of Drug Intoxication Withdrawal: No Have you been hit, kicked, punched, or otherwise hurt by someone within the past year? If so, by whom?: No Do you feel safe in your current relationship?: No Current Relationship Is there a partner from a previous relationship who is making you feel unsafe now?: No Are you made to feel afraid or neglected: No Advance Directives: Yes Advance Directives on File: Yes Advance Directives Date on File: 05/31/23 Do you have a plan to hurt others: No Plan Nutrition Risks: Dental problems Poor oral hygiene: Yes service: No Meds Allergies Allergy/AdvReac Type Severity Reaction Status Date / Time lisinopril Allergy Angioedema Verified 07/20/23 14:45 scallops Allergy Angioedema Verified 07/20/23 14:45 Home Medications ?Medication ?Instructions ?Recorded ?Confirmed ?Last Taken ?Type acetaminophen 325 mg tablet 650 mg PO DAILY PRN Fever Or Pain 04/30/23 07/20/23 Unknown History folic acid 1 mg tablet 1 mg PO DAILY@0900 04/30/23 07/20/23 Unknown History melatonin 3 mg tablet 3 mg PO BEDTIME Sleep 04/30/23 07/20/23 Unknown History midodrine 10 mg tablet 10 mg PO TID 04/30/23 07/20/23 Unknown History multivitamin 1 tab PO DAILY@0900 04/30/23 07/20/23 Unknown History naltrexone 50 mg tablet 50 mg PO DAILY@0904/30/23 07/20/23 Unknown History pantoprazole 40 mg tablet,delayed 40 mg PO DAILY@0600 04/30/23 07/20/23 Unknown History release rifaximin 550 mg tablet (Xifaxan) 550 mg PO BID 04/30/23 07/20/23 Unknown History thiamine HCl (vitamin B1) 100 mg 100 mg PO DAILY@0904/30/23 07/20/23 Unknown History tablet bisacodyl 10 mg rectal suppository 10 mg ND DAILY PRN Constipation 05/20/23 07/20/23 Unknown History ondansetron HCl 4 mg tablet 4 mg PO Q4H PRN nausea/vomting 05/20/23 07/20/23 Unknown History nystatin 100,000 unit/gram topical 1 appl topical DAILY 06/16/23 07/20/23 Unknown History powder sodium phosphates 19 gram-7 118 ml ND DAILY PRN Constipation 06/16/23 07/20/23 Unknown History gram/118 mL enema (Fleet Enema) gabapentin 100 mg capsule 200 mg PO DAILY@0907/20/23 07/20/23 Unknown History sertraline 100 mg tablet 100 mg PO DAILY@0907/20/23 07/20/23 Unknown History sodium bicarbonate 650 mg tablet 650 mg PO TID@0900,1400,1800 07/20/23 07/20/23 Unknown History Results Labs 07/28/23 16:58 07/28/23 16:58 Assessment and Plan (1) Acute on chronic renal failure: Qualifiers: Acute renal failure type: unspecified Chronic kidney disease stage: u nspecified stage Qualified Code(s): N17.9 - Acute kidney failure, unspecified; N18.9 - Chronic kidney disease, unspecified Status: Acute (2) Renal failure syndrome: Status: Acute (3) Acute UTI: Status: Acute (4) Encephalopathy: Status: Acute (5) Seizure: Status: Acute Plan This patient has significant comorbidities not limited to ESRD, decompensated liver cirrhosis needing frequent paracentesis, congestive heart failure with frequent and recurrent hospitalization is transferred to ICU from floor due to hypotension. Patients last dialysis was yesterday since then he has been episodically but persistently hypotensive since afternoon. Given his multiple comorbidities and end stage diseases his prognosis is very very poor and this was explained in detail to patients family who stated their understanding of the situation and decided towards DNI/DNR and no heroic measaures. Will change to comfort care soon once his son arrives from [place].
[2023-07-28] MEDS: Mineral OiL enema 133 ML ENEMA PR (20:07)
[2023-07-28 20:22] LABS: Ammonia < 14 umol/L (13-55)
[2023-07-28 20:24] LABS: Lactic Acid 1.2 mmol/L (0.5-2.0)
[2023-07-28 20:34] LABS: Albumin Level 4.1 g/dL (3.5-5.0)
--- NOTE | 2023-07-28 20:52 | P.ACPN_ITS ---
Advanced Care Planning Note Advanced Care Planning Note Time spent (in minutes): 60 Narrative: I had a very lengthy discussion with the patient's daughter as well as patient's (healthcare proxy Mrs Joanie Bustos) answering many questions in regards to the patient's current clinical scenario, current hospital stay in many other questions that according to them had not been answered before. They manifest that they are exhausted about this patient's ongoing clinical illness and recurrent hospitalizations without any improvement on this patient's clinical picture or quality of life. Apparently the patient had been a very heavy alcoholic who develop inability to ambulate and discoordination, mental status changes, forgetfulness among multiple other things in addition to all of his comorbidities, he went into the hospital 8 months ago and since then he has not spent more than a total of 8 days at home as for the rest of the time he has been either in a hospital or rehab facility from where often times he would bounce back into the hospital. In addition the patient has been requiring monthly or sometimes more often paracentesis due to chronic ascites, has required dialysis which unfortunately it seems like he is not able to tolerate. He would often have complications related to it with chronic exhaustion, hypotension. In addition there concern is that his nutritional status has changed significantly, he does not eat as he used to, he has not as coherent, he is often confused and forgetful. They seemed to be frustrated as they expressed at sometimes certain providers have expressed that the patient could eventually get better and would be able to travel to the point of having dialysis anywhere where he would be traveling to and it seems that this would give the patient a false hope. They noted that the patient keeps getting worse instead of better and instead of having any type of improvement has had a ongoing decline of his health despite of small episodes of improvement which are often temporary to get him out of the hospital into a rehab. They understand that this patient's issues are complex and at this point they do not want him to suffer or continued to have him go through invasive procedures, chemical or manual resuscitation, intubation among others. I discussed in detail what ICU care and her vitals including placement of central line if necessary for administration of vasopressors, in the event of cardiopulmonary arrest he would need resuscitation and ventilation among others. Patient's states that he would not want any of that and that at this point they do not see why they should continue to be so aggressive if his overall outcome would not improve. They were rather deescalate the care at this point, they are only waiting for a son who is flying in from [place] and eventually if he is okay with it, after seeing his father, they will consider [employer]CING MANAGER. For now they would like the patient to be DNR, DNI, no invasive procedures and no further ICU related care. This discussion was held for about 60 minutes, as a witness for the above- mentioned decisions we had the patient's nurse Sally. Changes have been made to the record. Critical care time used for critical evaluation of this patient, diagnosis, tr eatment and coordination of care, review her records and documentation TOTAL CRITICAL CARE TIME 60 MIN . discussion and coordination with consultants, completely separate from any procedures performed. . Patient's care was discussed in detail with Dr. Garcia. He is aware of all the above as well as the plan of care for this patient. Problems Discussed (1) Sepsis: (2) Acute UTI:
[2023-07-28 20:58] LABS: Cortisol Random 11.7 ug/dL
[2023-07-28 21:02] LABS: Thyroid Stimulating Hormone 2.16 uIU/mL (0.32-4.0)
[2023-07-28] MEDS: Albumin Human 25 % 100 ML 133.33 ML IV ×2 (21:06→22:03)
[2023-07-28 21:12] LABS: Folate 15.4 ng/mL (> or = 4.0); Vitamin B12 932 pg/mL (200-900)
--- NOTE | 2023-07-28 21:32 | HO.HCP ---
Health Care Proxy Invocation Health Care Proxy Declaration: I, Tree Hutchins PAC, on the date cited below, have determined that, Mr Andres Torres, lacks the capacity to make or communicate, informed health care decision. This determination is made in accordance with accepted standards of medical judgment and pursuant to [place] 201[place], the [place] Health Care Proxy Law. The cause, nature, extent and probable duration of the patient's inapacity are described below: Cause: Acute on Chronic Encephalopathy Nature: Chronic illness / alcoholism Extent: Moderate inabilty to hold a conversation and make basic as well as complex decisions Probable Duration of Patient's Incapacity: Undetermined Discussed this in detail with the patient's daughter and the patient's who is the healthcare proxy Joanie Bustos who manifests that the patient's inability to make decisions and mental status changes have been ongoing for over 7 months in an intermittent manner and more so whenever his sick, the patient has been chronically ill and in and out of the hospital for over 7 months without being able to a good quality of life or spent more than a total of 8 days during the 7 months at home. She understands that the patient has intermittent episodes of lucency but often times is not able to have a coherent conversation, has significant forgetfulness. Please see details of my discussion with the above members in the advance care planning documentation.
[2023-07-28] MEDS: Hydrocortisone Sod Succ/PF 100 MG VIAL IVPUSH (22:53)
[2023-07-29] VITALS (11 sets, daily range): BP systolic 68–102; BP diastolic 29–51; PULSE 63–81; RESP 13–21; TEMP 36.2–37.1; O2SAT 93–98; BMI 23.4
--- NOTE | 2023-07-29 00:55 | PC.NURSE ---
Addendum entered by Bryson José RN 07/29/23 06:31: REPORT CALLED THEN TRANSFERRED TO [facility] VIA BED Addendum entered by Bryson José RN 07/29/23 04:22: REPEAT FAMILY MEETING WITH ICU PA AFTER ALL MEMBERS ARRIVED AND PRESENT...FAMILY CONFIRMS DNR/DNI STATUS AND NO ESCALATION OF CARE...SBP 70'S...FAMILY AND PA AWARE... Addendum entered by Bryson José RN 07/29/23 01:58: PATIENT WITH PREVIOUS ULTRASOUND GUIDED IV SITE TO RIGHT UPPER ARM...2ND ULTRASOUND GUIDED #20 ANGIO PLACED TO LEFT UPPER ARM AFTER ARRIVAL TO ICU...PER ELECTRICAL SIGN WIRER PREVIOUSLY UNABLE TO DRAW LABS WHEN ON IMC...SCHEDULED LABS DRAWN FROM NEW IV SITE...MEDS INFUSED PER MAY Original Note: PATIENT TRANSFERRED TO [facility] APPROX 6:30PM...PATIENT AWAKE...CONVERSANT..ORIENTED TO PERSON...VAGUE RESPONSES TO OTHER QUESTIONS....SBP 70'S ON TRANSFER...IV FLUIDS NS 0.9% 250 CC/HR INFUSING....ALBUMEN INFUSED PRIOR TO ARRIVAL..LEVOPHED DRIP INITIATED PRIOR TO ASSUMPTION OF CARE...TITRATED TO 0.1 THEN 0.2 MCG/KG/MIN BU ICU PA WITH IMPROVED BP...NSR 1ST-DEGREE AV-BLOCK/BBB...RESPIRATIONS EASY...CHRONIC ROSA WITH MINIMAL OUTPUT...DENIES SOB...SAO2 95-96%...ICU PA AT BEDSIDE...IV FLUIDS HELD....NPO PER PA...PO MEDS HELD...ALBUMEN INFUSED PER MAY....PA MET WITH AND CHILDREN AND DISCUSSED PLAN OF CARE/GOALS OF CARE..SEE MD NOTE...CODE STATUS CHANGED TO DNR/DNI...PLAN FOR CONFIGURATION MANAGEMENT MANAGER STATUS ONCE FAMILY ARRIVES FROM [facility]...LEVOPHED DRIP WEANED OFF PER PA...SBP 70'S...PA AWARE...FAMILY AT BEDSIDE..PATIENT DENIES DISCOMFORT OR SOB...RESTFUL
[2023-07-29] MEDS: Albumin Human 25 % 100 ML IV (02:51)
[2023-07-29] MEDS: Linezolid/D5W 600 MG/300 ML PIGGYBACK 300 MG IV ×2 (05:15→17:06)
[2023-07-29] MEDS: Pantoprazole Sodium 40 MG/10 ML VIAL IVPUSH ×2 (05:15→17:06)
[2023-07-29 05:50] LABS: MANUAL DIFF FLAG NO
[2023-07-29 05:51] LABS: Basophils Percent Auto 0.2 % (0-2); Eosinophils Percent Auto 0.2 % (0-4); Hematocrit 21.6 % (42.0-52.0); Hemoglobin 7.1 g/dl (14.0-18.0); Imm Gran Abs Auto 0.02 X10*3/uL (0.00-0.03); Imm Gran Pct Auto 0.5 % (0.0-0.4); Lymphocytes Absolute Auto 0.4 X10*3/uL (1.2-4.9); Lymphocytes Percent Auto 10.5 % (20-40); Mean Corpuscular HGB Conc 32.9 g/dl (31.0-36.0); Mean Corpuscular Hemoglobin 31.3 pg (27.0-33.0); Mean Corpuscular Volume 95.2 fL (80.0-98.0); Mean Platelet Volume 10.6 fL (9.4-12.4); Monocytes Absolute Auto 0.1 X10*3/uL (0.1-1.2); Monocytes Percent Auto 2.2 % (2-11); Neutrophils Absolute Auto 3.5 x10*3/uL (2.0-8.3); Neutrophils Percent Auto 86.4 % (45-73); Red Blood Count 2.27 X10*6/uL (4.60-5.80); Red Cell Distribution Width 15.2 % (11.0-16.0); White Blood Count 4.1 X10*3/uL (4.8-10.8)
[2023-07-29 05:57] LABS: Platelet Count 64 X10*3/uL (160-400)
[2023-07-29 06:21] LABS: Anion Gap 23 (12-20); Blood Urea Nitrogen 23 mg/dL (9-16); Calcium 9.6 mg/dL (8.4-10.2); Carbon Dioxide 19 mmol/L (22-29); Chloride 102 mmol/L (96-108); Creatinine Clr Calc Pharmacy 14.9; Estimated Glomerular Filt Rate 13; Glucose Random 177 mg/dL (60-115); Sodium 141 mmol/L (135-145)
[2023-07-29] MEDS: Clotrimazole 1 % Cream 15 GM TUBE 1 APPL TOPICAL ×2 (09:45→21:00)
[2023-07-29] MEDS: 0.9 % Sodium Chloride Flush 3 ML SYRINGE IVFLUSH ×2 (09:46→17:06)
[2023-07-29] MEDS: Nystatin Powder 15 GM BOTTLE 1 APPL TOPICAL ×3 (09:46→21:00)
--- NOTE | 2023-07-29 10:37 | MHC.CM.PN ---
CM contacted pt.s / HCP, Joanie to discuss DCP to home, or DBV and if she wanted Hospice services. She said she wants to discuss this further with her family and will let us know. She requested that hosp. staff not use the word Hospice to pt. as it has upset him in the recent past. CM has referred to [facility], and will let them know that family will contact us soon to determine if they want hospice services and where pt will be DC's to.
--- NOTE | 2023-07-29 14:26 | MHC.CM.PN ---
CM provided pt.s with a list of home care agencies and hospice organizations at her request, she is looking into taking pt home with 24 hr care and hospice services.
--- NOTE | 2023-07-29 15:45 | P.PNIM_ITS ---
Subjective Subjective Date of Service: 07/29/23 Interval History: esrd -unable to tolerate hd, bodelrine bp Review of Systems limited wants to sleep. Physical Exam 2 Vital Signs: Vital Signs: Last Vital Signs Temp 97.1 F 07/29/23 15:16 Pulse 63 07/29/23 15:16 Resp 16 07/29/23 15:16 BP 86/47 L 07/29/23 15:16 Pulse Ox 96 07/29/23 15:16 O2 Del Method Room Air 07/29/23 15:16 BMI result Body Mass Index 23.4 limited . Resp: air entry fair. CVS: S1,S2,RRR GI: +BS, NT, no distention Skin: No rash Neuro: trying to sleep.deferred. Objective Data Active Medications Acetaminophen (Acetaminophen 325 Mg Tablet) 650 mg PO Q6H PRN PRN Reason: Pain, Mild (Pain Scale 1-3) Bisacodyl (Bisacodyl 10 Mg Supp.Rect) 10 mg [place] DAILY PRN PRN Reason: Constipation Clotrimazole (Clotrimazole 1 % Cream 15 Gm Tube) 1 appl TOPICAL BID [facility]; Protocol Last Admin: 07/29/23 09:45 Dose: 1 appl Documented By: TEJAL Docusate Sodium (Docusate Sodium 100 Mg Capsule) 100 mg PO BID [facility] Last Admin: 07/28/23 21:12 Dose: Not Given Documented By: BRIAN Non-Admin Reason: Physician Held Med Linezolid (Zyvox/D5w) 600 mg in 300 mls @ 300 mls/hr IV Q12H [facility] Last Infusion: 07/29/23 06:31 Dose: Infused Documented By: BRIAN Midodrine (Midodrine Hcl 5 Mg Tablet) 15 mg PO Q6H [facility] Last Admin: 07/29/23 12:00 Dose: Not Given Documented By: TEJAL Non-Admin Reason: NPO Naltrexone HCl (Naltrexone Hcl 50 Mg Tablet) 50 mg PO DAILY@0900 [facility] Last Admin: 07/28/23 10:30 Dose: Not Given Documented By: JOHNNY Non-Admin Reason: Patient Refused Nystatin (Nystatin Powder 15 Gm Bottle) 1 appl TOPICAL TID [facility]; Protocol Last Admin: 07/29/23 09:46 Dose: 1 appl Documented By: TEJAL Ondansetron HCl (Ondansetron Hcl 4 Mg/2 Ml Vial) 4 mg IVPUSH Q6H PRN PRN Reason: Nausea and Vomiting Pantoprazole Sodium (Pantoprazole Sodium 40 Mg/10 Ml Vial) 40 mg IVPUSH BID@0630,1630 [facility] Last Admin: 07/29/23 05:15 Dose: 40 mg Documented By: BRIAN Rifaximin (Rifaximin 550 Mg Tablet) 550 mg PO BID [facility] Last Admin: 07/28/23 10:30 Dose: Not Given Documented By: JOHNNY Non-Admin Reason: Patient Refused Senna (Sennosides 8.6 Mg Tablet) 17.2 mg PO BEDTIME PRN PRN Reason: Constipation Sodium Bicarbonate (Sodium Bicarbonate 650 Mg Tablet) 650 mg PO TID@0900,1400,1800 [facility] Last Admin: 07/28/23 13:13 Dose: Not Given Documented By: JOHNNY Non-Admin Reason: Patient Refused Sodium Chloride (0.9 % Sodium Chloride Flush 3 Ml Syringe) 3 ml IVFLUSH QSHIFT [facility] Last Admin: 07/29/23 09:46 Dose: 3 ml Documented By: TEJAL Thiamine HCl (Thiamine Hcl 100 Mg Tablet) 100 mg PO DAILY@0900 [facility] Last Admin: 07/28/23 10:30 Dose: Not Given Documented By: JOHNNY Non-Admin Reason: Patient Refused Labs 07/29/23 05:18 07/29/23 05:18 Labs: Laboratory Results - last 24 hr 07/28/23 07/28/23 07/28/23 16:58 18:15 19:57 MCV 93.3 MCH 31.8 MCHC 34.1 RDW 15.2 Plt Count 47 L D MPV 10.7 Immature Gran % (Auto) Neut % (Auto) Lymph % (Auto) [place] % (Auto) Eos % (Auto) Baso % (Auto) Lymph # (Auto) [place] # (Auto) Eos # (Auto) Baso # (Auto) Abs Immat Gran (auto) Absolute Neuts (auto) Absolute Nucleated RBC 0.000 Nucleated RBC % (auto) 0.0 Anion Gap 22 H Estim Creat Clear Calc 15.7 Estimated GFR 15 Random Glucose 118 H Lactic Acid 1.2 Calcium 9.4 D Iron 55 TIBC 80 L % Saturation 69 H Unsat Iron Binding < 25 Ammonia < 14 Albumin 4.1 Vitamin B12 932 H Folate 15.4 Procalcitonin 0.80 TSH 2.16 Random Cortisol 11.7 Hold Yellow Top See Note Blood Type A Negative Antibody Screen NEGATIVE 07/29/23 05:18 MCV 95.2 MCH 31.3 MCHC 32.9 RDW 15.2 Plt Count 64 L D MPV 10.6 Immature Gran % (Auto) 0.5 H Neut % (Auto) 86.4 H Lymph % (Auto) 10.5 L [place] % (Auto) 2.2 Eos % (Auto) 0.2 Baso % (Auto) 0.2 Lymph # (Auto) 0.4 L [place] # (Auto) 0.1 Eos # (Auto) 0.0 Baso # (Auto) 0.0 Abs Immat Gran (auto) 0.02 Absolute Neuts (auto) 3.5 Absolute Nucleated RBC 0.000 Nucleated RBC % (auto) 0.0 Anion Gap 23 H Estim Creat Clear Calc 14.9 Estimated GFR 13 Random Glucose 177 H Lactic Acid Calcium 9.6 Iron TIBC % Saturation Unsat Iron Binding Ammonia Albumin Vitamin B12 Folate Procalcitonin TSH Random Cortisol Hold Yellow Top Blood Type Antibody Screen Assessment and Plan (1) Acute on chronic renal failure: Status: Acute (2) Renal failure syndrome: Status: Acute Plan 67/m with ESRD on HD, chronic HFrEF 30-35%,dm 2,mood dis,cirrhosis of liver d/t alcohol brought from dialysis with AMS, N/V , Hypotension-admitted for sever sepsis ,AMS(toxic metbolic Encephalpathy) d/t UTI,patient is also esrd pn hd: patient recieved fluids ,iv antibiotics,liver dis meds( lactulose ) : patient sepsis resolved. Patient has esrd on hd -unable to tolerate Hd -given multiple tries ( with fluids /midodrine ) but patient bp stays in boderline/hypotensive range -went to [facility] -where family decided for hospice ,also now son is here ( nephrology d/w patient 's son) -overall prognosis seems poor . d/w patient -decided for hospice /international tax manager. hospice eval talked to -option of hsopice given,family will decide. Quality Stroke Does the patient have a stroke diagnosis?: No VTE Prior VTE?: No VTE Risk Level:: Medical - moderate - high VTE Device Contraindication: Treatment Not Indicated VTE Drug Contraindication: N/A - Med Ordered
[2023-07-30 03:00] VITALS: RESP 16
[2023-07-30] MEDS: Nystatin Powder 15 GM BOTTLE 1 APPL TOPICAL ×2 (08:06→21:00)
[2023-07-30] MEDS: Clotrimazole 1 % Cream 15 GM TUBE 1 APPL TOPICAL ×2 (08:06→21:00)
[2023-07-30] MEDS: 0.9 % Sodium Chloride Flush 3 ML SYRINGE IVFLUSH (08:07)
--- NOTE | 2023-07-30 13:10 | P.PNIM_ITS ---
Subjective Subjective Date of Service: 07/30/23 Interval History: unable to obtain Physical Exam 2 Vital Signs: Vital Signs: Last Vital Signs Temp 97.1 F 07/29/23 15:16 Pulse 63 07/29/23 15:16 Resp 16 07/30/23 03:00 BP 86/47 L 07/29/23 15:16 Pulse Ox 96 07/29/23 15:16 O2 Del Method Room Air 07/29/23 15:16 BMI result Body Mass Index 23.4 obtunded, ill appearing, abd distended, non tender Objective Data Active Medications Acetaminophen (Acetaminophen 325 Mg Tablet) 650 mg PO Q6H PRN PRN Reason: Pain, Mild (Pain Scale 1-3) Bisacodyl (Bisacodyl 10 Mg Supp.Rect) 10 mg [place] DAILY PRN PRN Reason: Constipation Clotrimazole (Clotrimazole 1 % Cream 15 Gm Tube) 1 appl TOPICAL BID [facility]; Protocol Last Admin: 07/30/23 08:06 Dose: 1 appl Documented By: KALEE Docusate Sodium (Docusate Sodium 100 Mg Capsule) 100 mg PO BID [facility] Last Admin: 07/28/23 21:12 Dose: Not Given Documented By: BRIAN Non-Admin Reason: Physician Held Med Linezolid (Zyvox/D5w) 600 mg in 300 mls @ 300 mls/hr IV Q12H [facility] Last Admin: 07/30/23 07:30 Dose: Not Given Documented By: FLORIN Non-Admin Reason: NAPPER GRINDER Lactulose (Lactulose 20 Gm/30 Ml Solution) 20 gm PO BID [facility] Midodrine (Midodrine Hcl 5 Mg Tablet) 15 mg PO Q6H [facility] Last Admin: 07/30/23 12:40 Dose: Not Given Documented By: LAVERNE Non-Admin Reason: pt is NAPPER GRINDER Naltrexone HCl (Naltrexone Hcl 50 Mg Tablet) 50 mg PO DAILY@0900 [facility] Last Admin: 07/28/23 10:30 Dose: Not Given Documented By: JOHNNY Non-Admin Reason: Patient Refused Nystatin (Nystatin Powder 15 Gm Bottle) 1 appl TOPICAL TID [facility]; Protocol Last Admin: 07/30/23 08:06 Dose: 1 appl Documented By: KALEE Ondansetron HCl (Ondansetron Hcl 4 Mg/2 Ml Vial) 4 mg IVPUSH Q6H PRN PRN Reason: Nausea and Vomiting Pantoprazole Sodium (Pantoprazole Sodium 40 Mg/10 Ml Vial) 40 mg IVPUSH BID@0630,1630 [facility] Last Admin: 07/30/23 07:32 Dose: Not Given Documented By: FLORIN Non-Admin Reason: NAPPER GRINDER Rifaximin (Rifaximin 550 Mg Tablet) 550 mg PO BID [facility] Last Admin: 07/28/23 10:30 Dose: Not Given Documented By: JOHNNY Non-Admin Reason: Patient Refused Senna (Sennosides 8.6 Mg Tablet) 17.2 mg PO BEDTIME PRN PRN Reason: Constipation Sertraline HCl (Sertraline Hcl 100 Mg Tablet) 100 mg PO DAILY [facility] Sodium Bicarbonate (Sodium Bicarbonate 650 Mg Tablet) 650 mg PO TID@0900,1400,1800 [facility] Last Admin: 07/28/23 13:13 Dose: Not Given Documented By: JOHNNY Non-Admin Reason: Patient Refused Sodium Chloride (0.9 % Sodium Chloride Flush 3 Ml Syringe) 3 ml IVFLUSH QSHIFT [facility] Last Admin: 07/30/23 08:07 Dose: 3 ml Documented By: PRICILLAFEKALIN Thiamine HCl (Thiamine Hcl 100 Mg Tablet) 100 mg PO DAILY@0900 [facility] Last Admin: 07/28/23 10:30 Dose: Not Given Documented By: JOHNNY Non-Admin Reason: Patient Refused Labs 07/29/23 05:18 07/29/23 05:18 Microbiology Microbiology Results: Microbiology 07/28/23 19:57 Blood Culture - Preliminary Blood - Venous No growth after 24 hours. 07/28/23 19:57 Blood Culture - Preliminary Blood - Venous No growth after 24 hours. 07/24/23 14:25 Blood Culture - Final Blood - Subclavian No growth after 5 days. Assessment and Plan (1) Acute on chronic renal failure: Status: Acute (2) Renal failure syndrome: Status: Acute Plan 67M PMH ESRD on HD, chronic HFrEF 30-35%,dm 2,mood disorder,cirrhosis of liver d/t alcohol brought from dialysis with AMS, N/V , Hypotension-admitted for sever sepsis ,AMS(toxic metbolic Encephalpathy) d/t UTI,patient, was upgraded to icu 5/19/24, then decision made to transition to end of life care, downgraded 07/29/23 Acute metabolic encephalopathy due to alcoholic cirrhosis with hepatic encephalopathy, hypotension due to poor tolerance of hemodialysis For the complicated by fluid overload due to end-stage renal disease, acute on chronic systolic CHF Decision made to pursue end of life care, goal is for patient to be at home on hospice Will continue with noninvasive treatments of rifaximin, lactulose, midodrine to help pursue this goal, but will not plan on escalating care if required Hemodialysis discontinued Plan for paracentesis for comfort prior to discharge Quality Stroke Does the patient have a stroke diagnosis?: No VTE Prior VTE?: No VTE Risk Level:: Medical - moderate - high VTE Device Contraindication: Treatment Not Indicated VTE Drug Contraindication: N/A - Med Ordered
[2023-07-30 20:00] VITALS: RESP 16
[2023-07-31] MEDS: diazePAM 10 MG/2 ML CARTRIDGE 5 MG IVPUSH (04:37)
[2023-07-31 08:00] VITALS: PULSE 70; RESP 20
--- NOTE | 2023-07-31 10:39 | HO.PM.IMPN ---
Subjective Subjective Date of Service: 07/31/23 Interval History: Some agitation overnight which improved with diazepam Physical Exam Vital Signs: Vital Signs: Last Vital Signs Temp 97.1 F 07/29/23 15:16 Pulse 70 07/31/23 08:00 Resp 20 07/31/23 08:00 BP 86/47 L 07/29/23 15:16 Pulse Ox 96 07/29/23 15:16 O2 Del Method Room Air 07/29/23 15:16 BMI result Body Mass Index 23.4 alert, ill appearing, abd distended, non tender Objective Data Active Medications Acetaminophen (Acetaminophen 325 Mg Tablet) 650 mg PO Q6H PRN PRN Reason: Pain, Mild (Pain Scale 1-3) Bisacodyl (Bisacodyl 10 Mg Supp.Rect) 10 mg [place] DAILY PRN PRN Reason: Constipation Clotrimazole (Clotrimazole 1 % Cream 15 Gm Tube) 1 appl TOPICAL BID [facility]; Protocol Last Admin: 07/31/23 09:30 Dose: Not Given Documented By: KALEE Non-Admin Reason: Patient Asleep Diazepam (Diazepam 10 Mg/2 Ml Cartridge) 5 mg IVPUSH Q4H PRN PRN Reason: agitation Docusate Sodium (Docusate Sodium 100 Mg Capsule) 100 mg PO BID [facility] Last Admin: 07/28/23 21:12 Dose: Not Given Documented By: BRIAN Non-Admin Reason: Physician Held Med Linezolid (Zyvox/D5w) 600 mg in 300 mls @ 300 mls/hr IV Q12H [facility] Last Admin: 07/31/23 01:37 Dose: Not Given Documented By: ELIAN Non-Admin Reason: NPO Midodrine (Midodrine Hcl 5 Mg Tablet) 15 mg PO Q6H [facility] Last Admin: 07/31/23 01:37 Dose: Not Given Documented By: ELIAN Non-Admin Reason: NPO Naltrexone HCl (Naltrexone Hcl 50 Mg Tablet) 50 mg PO DAILY@0900 [facility] Last Admin: 07/28/23 10:30 Dose: Not Given Documented By: JOHNNY Non-Admin Reason: Patient Refused Nystatin (Nystatin Powder 15 Gm Bottle) 1 appl TOPICAL TID [facility]; Protocol Last Admin: 07/31/23 09:30 Dose: Not Given Documented By: KALEE Non-Admin Reason: Patient Asleep Ondansetron HCl (Ondansetron Hcl 4 Mg/2 Ml Vial) 4 mg IVPUSH Q6H PRN PRN Reason: Nausea and Vomiting Pantoprazole Sodium (Pantoprazole Sodium 40 Mg/10 Ml Vial) 40 mg IVPUSH BID@0630,1630 [facility] Last Admin: 07/31/23 01:40 Dose: Not Given Documented By: ELIAN Non-Admin Reason: NPO Rifaximin (Rifaximin 550 Mg Tablet) 550 mg PO BID [facility] Last Admin: 07/31/23 09:15 Dose: Not Given Documented By: KALEE Non-Admin Reason: INSTALLATION TECHNICIAN Senna (Sennosides 8.6 Mg Tablet) 17.2 mg PO BEDTIME PRN PRN Reason: Constipation Sertraline HCl (Sertraline Hcl 100 Mg Tablet) 100 mg PO DAILY [facility] Last Admin: 07/31/23 09:15 Dose: Not Given Documented By: KALEE Non-Admin Reason: INSTALLATION TECHNICIAN Sodium Bicarbonate (Sodium Bicarbonate 650 Mg Tablet) 650 mg PO TID@0900,1400,1800 [facility] Last Admin: 07/28/23 13:13 Dose: Not Given Documented By: JOHNNY Non-Admin Reason: Patient Refused Sodium Chloride (0.9 % Sodium Chloride Flush 3 Ml Syringe) 3 ml IVFLUSH QSHIFT [facility] Last Admin: 07/31/23 09:14 Dose: Not Given Documented By: KALEE Non-Admin Reason: no access Thiamine HCl (Thiamine Hcl 100 Mg Tablet) 100 mg PO DAILY@0900 [facility] Last Admin: 07/28/23 10:30 Dose: Not Given Documented By: JOHNNY Non-Admin Reason: Patient Refused Labs 07/29/23 05:18 07/29/23 05:18 Microbiology Microbiology Results: Microbiology 07/28/23 19:57 Blood Culture - Preliminary Blood - Venous No growth after 48 hours. 07/28/23 19:57 Blood Culture - Preliminary Blood - Venous No growth after 48 hours. Assessment and Plan (1) Acute on chronic renal failure: Status: Acute (2) Renal failure syndrome: Status: Acute Plan 67M PMH ESRD on HD, chronic HFrEF 30-35%,dm 2,mood disorder,cirrhosis of liver d/t alcohol brought from dialysis with AMS, N/V , Hypotension-admitted for sever sepsis ,AMS(toxic metbolic Encephalpathy) d/t UTI,patient, was upgraded to icu 07/28/23, then decision made to transition to end of life care, downgraded 07/29/23 Acute metabolic encephalopathy due to alcoholic cirrhosis with hepatic encephalopathy, hypotension due to poor tolerance of hemodialysis For the complicated by fluid overload due to end-stage renal disease, acute on chronic systolic CHF Decision made to pursue end of life care, goal is for patient to be at home on hospice Will continue with noninvasive treatments without side effects of rifaximin, midodrine to help pursue this goal, but will not plan on escalating care if required, and will discontinue lactulose Hemodialysis discontinued Plan for paracentesis with pleurx for comfort prior to discharge Quality Stroke Does the patient have a stroke diagnosis?: No VTE Prior VTE?: No VTE Risk Level:: Medical - moderate - high VTE Device Contraindication: Treatment Not Indicated VTE Drug Contraindication: N/A - Med Ordered
[2023-07-31] MEDS: Midodrine HCl 5 MG TABLET 15 MG PO ×3 (12:19→23:27)
[2023-07-31 15:21] VITALS: BP 94/52; PULSE 67; RESP 20; TEMP 36.3; O2SAT 91
[2023-07-31 19:30] VITALS: BP 94/52; PULSE 70; RESP 20; TEMP 36.3; O2SAT 92
[2023-07-31] MEDS: Nystatin Powder 15 GM BOTTLE 1 APPL TOPICAL (23:28)
[2023-07-31] MEDS: Clotrimazole 1 % Cream 15 GM TUBE 1 APPL TOPICAL (23:28)
[2023-08-01 01:32] VITALS: BP 98/52; PULSE 65; RESP 18; TEMP 36.4; O2SAT 99
[2023-08-01] MEDS: Midodrine HCl 5 MG TABLET 15 MG PO (05:51)
--- NOTE | 2023-08-01 09:38 | PM.PROC ---
Brief Operative Note Date of procedure: 08/01/23 Pre-op diagnosis: Recurrent ascites, Hospice Post-op diagnosis: same Procedure: Abdominal Pleurx Catheter placement 16 Fr Abdominal Pleurx catheter placed in Right lower abdomen. 4 L of serous fluid removed. No immediate Complications. Recommend drainage of the catheter daily for the next 4 days, then PRN for comfort. Anesthesia: local (Fentanyl 25 mcg) Condition: stable Disposition: floor
[2023-08-01] MEDS: Lidocaine HCl 1 % MPF 5 ML VIAL 10 ML SUBCUT (09:47)
--- NOTE | 2023-08-01 10:27 | P.DS_ITS ---
DS: Providers Provider Date of Service: 08/01/23 Date of admission: 07/20/23 18:47 Primary care physician: DONNA CHISHOLM Consults: 07/22/23 08:18 Consult to Nephrology Routine Consulting Provider: [facility] Reason for consultation: Esrd, need HD Has provider been notified: Yes 07/23/23 12:11 Consult to Psychiatry Routine Consulting Provider: [facility] Reason for consultation: capacity eval. Has provider been notified: No 07/23/23 15:36 Consult to Infectious Diseases Routine Consulting Provider: [facility] Reason for consultation: ?uti Has provider been notified: No 07/28/23 16:28 Consult to Critical Care Routine Consulting Provider: Claudio Garcia Reason for consultation: levels of care Has provider been notified: No DS: Diagnosis Discharge Diagnosis (1) Acute on chronic renal failure: Status: Acute (2) Renal failure syndrome: Status: Acute DS: Summary Hospital Course Hospital Course: from initial hpi: 67 years old man with medical history significant for chronic liver disease secondary to alcohol, portal hypertension, recurrent hepatic encephalopathy, HFrEF, type 2 diabetes mellitus, GERD, ESRD new to dialysis on TTS. Patient was having dialysis which was terminated 90 minutes earlier due to altered mental status, and unstable vitals, abdominal pain and vomitting. On presenation was, he was hypoxic and required 6 liters by nasal canula to maintain O2 sat, BP was 87/49, no source of infection, CT of abdomen showed constipation with stool ball. Patient has been hydrated with imprved mental status, and BP is better and has been having bowel movements. O2 saturation is now 100 % on room air. CXR no acute finding. hospital course: Patient was admitted for acute metabolic encephalopathy due to alcoholic cirrhosis with hepatic encephalopathy and hypotension due to poor tolerance from hemodialysis this was further complicated by fluid overload due to end-stage renal disease and acute on chronic systolic CHF. Eventually due to poor prognosis and poor responsiveness decision made to transition to end of life care. Disease directed medications were discontinued. Patient had a PleurX catheter placed for p.r.n. ascites fluid drainage for comfort and will be discharged home on hospice. Time Attestation Discharge Coordination Time (in mins): 37 Quality: Safe Use of Opioids Does Pt have an Active Cancer Diagnosis on the Problem List?: No Quality: Stroke Does the patient have a stroke diagnosis?: No Physical Exam Vital Signs: Vital Signs: Last Vital Signs Temp 97.5 F 08/01/23 01:32 Pulse 65 08/01/23 01:32 Resp 18 08/01/23 01:32 BP 98/52 L 08/01/23 01:32 Pulse Ox 99 08/01/23 01:32 O2 Del Method Room Air 08/01/23 01:32 BMI result Body Mass Index 23.4 alert, ill appearing, abd distended, non tender DS: Data Data Completed and Pending Completed studies during hospitalization [Text1]: Procedures Drainage of Peritoneal Cavity with Drainage Device, Percutaneous Approach (05/20/23) Drainage of Peritoneal Cavity, Percutaneous Approach (06/16/23) Insertion of Infusion Device into Superior Vena Cava, Percutaneous Approach (06/16/23) Performance of Urinary Filtration, Intermittent, Less than 6 Hours Per Day (06/16/23) Transfusion of Nonautologous Red Blood Cells into Peripheral Vein, Percutaneous Approach (06/16/23) Ultrasonography of Superior Vena Cava, Guidance (06/16/23) Labs on day of discharge: Preliminary micro results at discharge 07/28/23 19:57 Blood Culture - Preliminary Blood - Venous No growth after 48 hours. 07/28/23 19:57 Blood Culture - Preliminary Blood - Venous No growth after 48 hours. Discharge Plan Discharge Anticipated Discharge Date/Time: 08/01/23 10:14 Patient Disposition: Hospice - Home Discharge Diagnosis: cirrhosis, esrd, sepsis, uti Referrals: [facility] [Outside] - 1 Day (RESUMPTION OF LTC) DONNA CHISHOLM [Primary Care Provider] - 1 Week Discharge Medications: New lorazepam 2 mg/mL concentrate 0.5 mg PO Q6H PRN (Reason: anxiety) Qty: 30 0RF morphine concentrate 100 mg/5 mL (20 mg/mL) solution 10 mg PO Q6H PRN (Reason: moderate pain (scale score 5-6)) Qty: 15 0RF Rx Instructions: Partial Fill upon patient request. Continued Fleet Enema 19-7 gram/118 mL Enema 118 ml IL DAILY PRN (Reason: Constipation) Rx Instructions: USE WHEN DUCOLAX SUPPOSITORY NOT EFFECTIVE acetaminophen 325 mg Tablet 650 mg PO DAILY PRN (Reason: Fever Or Pain) melatonin 3 mg Tablet 3 mg PO BEDTIME pantoprazole 40 mg tablet,delayed release (DR/EC) 40 mg PO DAILY@0600 ondansetron HCl 4 mg tablet 4 mg PO Q4H PRN (Reason: nausea/vomting) bisacodyl 10 mg Suppository 10 mg IL DAILY PRN (Reason: Constipation) Rx Instructions: if milk of magnesia not effective sertraline 100 mg tablet 100 mg PO DAILY@0900 gabapentin 100 mg capsule 200 mg PO DAILY@0900 Discontinued nystatin 100,000 unit/gram Powder 1 appl TOPICAL DAILY Rx Instructions: APPLY TO RASH ON ABDOMINAL FOLDS/GROIN/ARMPITS lactulose 20 gram/30 mL Solution 30 g PO BID Qty: 1 0RF Rx Instructions: HOLD FOR 3 OR MORE LOOSE STOOLS multivitamin Tablet 1 tab PO DAILY@0900 naltrexone 50 mg Tablet 50 mg PO DAILY@0900 thiamine HCl (vitamin B1) 100 mg tablet 100 mg PO DAILY@0900 folic acid 1 mg tablet 1 mg PO DAILY@0900 midodrine 10 mg tablet 10 mg PO TID Xifaxan 550 mg tablet 550 mg PO BID sodium bicarbonate 650 mg tablet 650 mg PO TID@0900,1400,1800 Discharge Orders: Discharge Order (Routine); Ordered 08/01/23 Ordered By: Wilfredo Maira Diet: Advance to usual diet Activity on Discharge: As tolerated Stand Alone Forms: Patient Portal Discharge page Print Language: Comoran Care Plan Goals: comfort care/ end of life care Health Concerns: end of life care Plan of Treatment: home hospice, drain ascites for comfort via pleurx as needed Assessment: see above
--- NOTE | 2023-08-01 10:38 | MHC.CM.PN ---
Pt has been medically cleared for DC, he will go home via BLS today and have home care services, private from [facility], and Hospice service from [facility].
== END 2023-08-01 12:16 | disposition hospice, home (50) | DRG 871 ==
LOC: HO.ED 16:18 → HO.EDOVER 18:57 → HO.IMC 20:25 → HO.ICU 07-28 18:06 → HO.IMC 07-29 05:37
PROVIDERS: Internal Medicine; Internal Medicine Critical Care Medicine; Physician Assistant Medical; Student in an Organized Health Care Education/Training Program; Admitting Provider Internal Medicine; Emergency Provider Emergency Medicine; PCP Emergency Medicine; Visit Provider Internal Medicine
DX: A41.9 Sepsis, unspecified organism (principal); G93.41 Metabolic encephalopathy; N18.6 End stage renal disease; R65.21 Severe sepsis with septic shock; I50.22 Chronic systolic (congestive) heart failure; F10.27 Alcohol dependence with alcohol-induced persisting dementia; N39.0 Urinary tract infection, site not specified; K76.6 Portal hypertension; N17.9 Acute kidney failure, unspecified; I95.1 Orthostatic hypotension; Z66 Do not resuscitate; K76.82 Hepatic encephalopathy; E86.0 Dehydration; D63.1 Anemia in chronic kidney disease; D69.6 Thrombocytopenia, unspecified; B95.2 Enterococcus as the cause of diseases classified elsewhere; K59.00 Constipation, unspecified; E11.22 Type 2 diabetes mellitus with diabetic chronic kidney disease; K70.30 Alcoholic cirrhosis of liver without ascites; Z99.2 Dependence on renal dialysis; Z79.899 Other long term (current) drug therapy
CPT/HCPCS: 32550; 36415; 71045; 74177; 76705; 80048; 80053; 81001; 81003; 82040; 82140; 82533; 82607; 82746; 82947; 83540; 83605; 83735; 84145; 84443; 84484; 85025; 85027; 85610; 86850; 86900; 86901; 87040; 87086; 87088; 87186; 90999; 92950; 93005; 97162; 99285; C1729; C1758; C9113; J0696; J1644; J1720; J2020; J2405; J3360; P9047; Q9967

== ENCOUNTER → 2023-07-20 14:46 | Outpatient (BNV) | payer MEDICARE, SELFPAY | PROVIDERS: Admitting Provider Internal Medicine; Emergency Provider Emergency Medicine; Visit Provider Internal Medicine Cardiovascular Disease | DX: R94.31 Abnormal electrocardiogram [ECG] [EKG] (principal) | CPT/HCPCS: 93010 ==

== ENCOUNTER 2023-07-20 18:47 | Outpatient (BNV) | payer MEDICARE, SELFPAY | END 2023-08-01 08:30 | PROVIDERS: Admitting Provider Internal Medicine; Emergency Provider Emergency Medicine; PCP Emergency Medicine; Visit Provider Physician Assistant Surgical | DX: R18.8 Other ascites (principal) | CPT/HCPCS: 32550; 75989 ==

== ENCOUNTER 2023-07-20 18:47 | Outpatient (BNV) | payer MEDICARE, SELFPAY | END 2023-07-21 13:17 | PROVIDERS: Admitting Provider Internal Medicine; Emergency Provider Emergency Medicine; Visit Provider Internal Medicine Cardiovascular Disease | DX: R94.31 Abnormal electrocardiogram [ECG] [EKG] (principal) | CPT/HCPCS: 93010 ==

== ENCOUNTER → 2023-07-20 18:47 | Outpatient (BNV) | payer MEDICARE, SELFPAY | PROVIDERS: Admitting Provider Internal Medicine; Emergency Provider Emergency Medicine; PCP Emergency Medicine; Visit Provider Internal Medicine Hypertension Specialist | DX: N17.9 Acute kidney failure, unspecified (principal); N18.6 End stage renal disease; Z99.2 Dependence on renal dialysis; Y84.1 Kidney dialysis as the cause of abnormal reaction of the patient, or of later complication, without mention of misadventure at the time of the procedure | CPT/HCPCS: 90935; 99223; 99232 ==

== ENCOUNTER → 2023-07-20 18:47 | Outpatient (BNV) | payer MEDICARE, SELFPAY | PROVIDERS: Admitting Provider Internal Medicine; Emergency Provider Emergency Medicine; Visit Provider Internal Medicine | DX: N17.9 Acute kidney failure, unspecified (principal); N18.6 End stage renal disease; Z99.2 Dependence on renal dialysis; Y84.1 Kidney dialysis as the cause of abnormal reaction of the patient, or of later complication, without mention of misadventure at the time of the procedure | CPT/HCPCS: 99223; 99231; 99232; 99233; 99239 ==

== ENCOUNTER → 2023-07-20 18:47 | Outpatient (BNV) | payer MEDICARE, SELFPAY | PROVIDERS: Admitting Provider Internal Medicine; Emergency Provider Emergency Medicine; PCP Emergency Medicine; Visit Provider Internal Medicine | DX: N17.9 Acute kidney failure, unspecified (principal); N18.9 Chronic kidney disease, unspecified; N19 Unspecified kidney failure; A41.9 Sepsis, unspecified organism; N39.0 Urinary tract infection, site not specified | CPT/HCPCS: 99222 ==

== ENCOUNTER → 2023-07-20 18:47 | Outpatient (BNV) | payer MEDICARE, SELFPAY | PROVIDERS: Admitting Provider Internal Medicine; Emergency Provider Emergency Medicine; PCP Emergency Medicine; Visit Provider Physician Assistant Medical | DX: N17.9 Acute kidney failure, unspecified (principal); N18.6 End stage renal disease; N39.0 Urinary tract infection, site not specified; G93.40 Encephalopathy, unspecified; R56.9 Unspecified convulsions; A41.9 Sepsis, unspecified organism | CPT/HCPCS: 99291; 99292 ==

== ENCOUNTER → 2023-07-20 18:47 | Outpatient (BNV) | payer MEDICARE, SELFPAY | PROVIDERS: Admitting Provider Internal Medicine; Emergency Provider Emergency Medicine; PCP Emergency Medicine; Visit Provider Clinical Nurse Specialist Psychiatric/Mental Health | DX: Z13.30 Encounter for screening examination for mental health and behavioral disorders, unspecified (principal); N17.9 Acute kidney failure, unspecified; N18.9 Chronic kidney disease, unspecified | CPT/HCPCS: 99221; 99222 ==